=== PATIENT | female | born 1950 | race Caucasian/White ===

== ENCOUNTER → 2017-10-05 11:00 | Outpatient (CLI) | payer MEDICARE, SELFPAY ==
--- NOTE | 2017-10-05 11:05 | CA_ITS ---
PROCEDURE: 2-D M-mode and color Doppler study INDICATIONS FOR THE TEST: Chest pain COPD Heart Murmur Tobacco Smoking Palpitations Fatigue Syncope Edema HypertensionXDiabetes Mellitus Rheumatic Fever SOBXDOE ObesityXHyperlipidemiaX Family History HD Additional History PHTN PATIENT INFORMATION HEIGHT: 67 WEIGHT:235 GENDER: Female B/P:154/88 2-D/M-MODE INTERPRETATION: 2-D MEASUREMENTS OBSERVED VALUES IN CMS Right Ventricular Dimension (RVDd) 3.9 Interventricular Septum (Thickness)(IVsd) 1.0 Left Ventricular Internal Dimensions(LVIDd) 4.6 Left Ventricular Posterior Wall (Thickness)(LVPWd) 1.0 Aortic Root 3.4 Aortic Cusp Separation 2.0 Left Atrial Dimensions (LAD) 3.5 2D 1. Left atrium is qualitatively mildly enlarged, left ventricle is normal size, mild qualitative concentric left ventricular hypertrophy, visually estimated ejection fraction 55% with no obvious regional wall motion abnormality. 2. The right atrium and right ventricle is mildly enlarged with normal contractility. 3. The aortic valve is minimally thickened and fibrosed. 4. The mitral and tricuspid valve leaflets are minimally thickened. 5. The pulmonic valve is poorly visualized. 6. No significant pericardial effusion noted. DOPPLER INTERROGATION: Doppler interrogation of the aortic, mitral and tricuspid valvular presence of mild mitral and moderate tricuspid regurgitation, calculated right ventricular systolic pressure is 40 mmHg consistent with mild pulmonary hypertension, grade 1 diastolic dysfunction seen with tissue Doppler evidence of raised left atrial pressure. CONCLUSION: 1. Biatrial enlargement, normal left ventricular size, mild qualitative concentric left ventricular hypertrophy, visually estimated ejection fraction 55% with no obvious regional wall motion abnormality, grade 1 diastolic dysfunction seen with tissue Doppler evidence of raised left atrial pressure. 2. Mildly enlarged right ventricle with normal contractility. 3. Mild mitral and moderate tricuspid regurgitation, calculated right ventricular systolic pressure is 40 mmHg consistent with mild pulmonary hypertension. 4. No significant pericardial effusion noted.
== END ==
PROVIDERS: Family Provider Internal Medicine Adolescent Medicine; PCP Internal Medicine Adolescent Medicine; Visit Provider Nurse Practitioner Family
DX: R06.09 Other forms of dyspnea (principal)
CPT/HCPCS: 93306

== ENCOUNTER → 2017-10-10 14:13 | Outpatient (CLI) | payer MEDICARE, SELFPAY ==
--- NOTE | 2017-10-10 14:14 | CT_ITS ---
CT angio chest Ordering Physician: Claudy Dash MD Patient Age: 67 years: Female HISTORY: ITS.REASON: ESCOBEDO Dyspnea short of breath. Nonsmoker. TECHNIQUE: Helical CT scanning performed the chest following bolus menstruation of 70 cc Isovue-370 followed x 40 mL normal saline.. Thickened axial sections along with thick slab MIPpsagittal and coronal reconstructions performed on CT workstation. All CT scans at this facility used one or more dose reduction techniques , viz: automatic exposure control, ma/Kv adjustment per patient's size, (including targeted exam where dose matched to the indication; i.e. head); or iterative reconstruction technique COMPARISON : FINDINGS Pulmonary arteries.: No evidence of pulmonary embolism. Good visualization of pulmonary arteries. These appear satisfactory throughout . Aorta normal caliber. Only scant calcified plaque in arch Lung deng. I there are some mild chronic lung changes with some minimal scarring most evident towards the lung bases particularly left lung base. This as stated appears to be linear areas of scarring and possibly atelectasis. Mild hyperexpansion. With Question scant early emphysematous changes, but see no history of smoking. The airways appear satisfactory. No pleural lesions or findings Mediastinum. No hilar no mediastinal adenopathy. The heart appears normal upper normal size. No pericardial effusion. Little if any coronary artery calcification evident. Uppermost abdomen. Limited images here unremarkable IMPRESSION: 1. No evidence of pulmonary embolism. Good visualization of pulmonary arteries. 2. Aorta and mediastinum appear satisfactory. Heart normal size a with no significant findings on this CT survey. 2. Minimal linear scarring and atelectasis toward lung bases otherwise lungs clear with no acute findings.
== END ==
PROVIDERS: Family Provider Internal Medicine Adolescent Medicine; PCP Internal Medicine Adolescent Medicine; Visit Provider Internal Medicine Cardiovascular Disease
DX: R06.09 Other forms of dyspnea (principal); I27.20 Pulmonary hypertension, unspecified
CPT/HCPCS: 71275; Q9967

== ENCOUNTER → 2017-10-31 14:34 | Outpatient (CLI) | payer MEDICARE, SELFPAY ==
--- NOTE | 2017-10-31 14:43 | XR_ITS ---
XR foot wt bearing RT 3V HISTORY: ITS.REASON: pain ORDERING PHYSICIAN: Nadine Mccarthy DPM PATIENT AGE: 67 years COMPARISON: 11/13/2013 FINDINGS: No fracture or dislocation. No lytic or blastic change. There is normal mineralization.. There is mild spurring along the dorsal and proximal aspect of the navicular. There is a 6 mm calcaneal spur. Moderate spurring along the dorsal and distal aspect of the first metatarsal which is developed since the previous exam. 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
--- NOTE | 2017-10-31 14:43 | XR_ITS ---
XR foot wt bearing LT 3V HISTORY: ITS.REASON: pain ORDERING PHYSICIAN: Nadine Mccarthy DPM PATIENT AGE: 67 years COMPARISON: 09/06/2012 FINDINGS: No fracture or dislocation. Hypertrophic changes have developed along the dorsal proximal aspect of the navicular. There is a 9 mm calcaneal spur and there is mild hypertrophy along the proximal third metatarsal. There are osteoarthritic changes of first metatarsal-phalangeal joint with subarticular cystic change. There is normal alignment. IMPRESSION: Osteoarthritic change of the first metatarsophalangeal junction with subarticular cyst along with hypertrophic change of the navicular and the proximal shaft of the third metatarsal
== END ==
PROVIDERS: Visit Provider Podiatrist
DX: M79.673 Pain in unspecified foot (principal)
CPT/HCPCS: 73630

== ENCOUNTER → 2018-05-30 13:08 | Outpatient (CLI) | payer MEDICARE, SELFPAY ==
--- NOTE | 2018-05-30 13:12 | XR_ITS ---
XR chest 2V HISTORY: ITS.REASON: SOB,PERSISTENT COUGH ORDERING PHYSICIAN: Robyn Fischer PATIENT AGE: 68 years COMPARISON: 08/30/2017, 03/11/2014, 07/31/2014 FINDINGS: The cardiomediastinal silhouette and pulmonary vascularity are within normal limits. Chronic changes are present in the left lung base. There is are increased markings in the right lung base as well most of which is felt to be due to overlapping vessels and pericardial fat pad. Superimposed patchy area of atelectasis or infiltrate is also considered. The density in the right lung base is slightly greater when compared to the previous exams. No acute bony findings. IMPRESSION: Chronic changes with possible superimposed atelectasis or infiltrate in the right lung base
== END ==
PROVIDERS: PCP Internal Medicine Adolescent Medicine; Visit Provider Nurse Practitioner Family
DX: R05 Cough (principal); R06.02 Shortness of breath
CPT/HCPCS: 71046

== ENCOUNTER → 2018-07-10 08:01 | Outpatient (CLI) | payer MEDICARE, SELFPAY ==
--- NOTE | 2018-07-10 08:03 | CA_ITS ---
PROCEDURE: 2-D M-mode and color Doppler study INDICATIONS FOR THE TEST: Chest pain COPD Heart Murmur Tobacco Smoking Palpitations Fatigue Syncope Edema Hypertension+Diabetes Mellitus Rheumatic Fever SOB+ESCOBEDO Obesity+Hyperlipidemia Family History HD Additional History PATIENT INFORMATION HEIGHT: 68 WEIGHT:235 GENDER: Female B/P: 2-D/M-MODE INTERPRETATION: 2-D MEASUREMENTS OBSERVED VALUES IN CMS Right Ventricular Dimension (RVDd) 3.4 Interventricular Septum (Thickness)(IVsd) 1.5 Left Ventricular Internal Dimensions(LVIDd) 4.4 Left Ventricular Posterior Wall (Thickness)(LVPWd) 1.0 Aortic Root 3.4 Aortic Cusp Separation 2.2 Left Atrial Dimensions (LAD) 4.0 2D 1. Left atrium is mildly enlarged, left ventricle is normal size, mild concentric left ventricular hypertrophy, visually estimated ejection fraction 55% with no regional wall motion abnormality. 2. The right atrium and right ventricle are mildly enlarged with normal contractility. 3. The aortic valve is minimally thickened and fibrosed. 4. The mitral and tricuspid valve leaflets are minimally thickened. 5. The pulmonic valve is poorly clear. 6. No significant pericardial effusion noted. DOPPLER INTERROGATION: Doppler interrogation of the aortic, mitral and tricuspid valvular presence of mild mitral and tricuspid regurgitation, calculated right ventricular systolic pressure is 35 mmHg, grade 1 diastolic dysfunction seen with tissue Doppler evidence of raised left atrial pressure. CONCLUSION: 1. Biatrial enlargement, normal left ventricular size, mild concentric left ventricular hypertrophy, visually estimated ejection fraction 55% with no regional wall motion abnormality, grade 1 diastolic dysfunction seen with tissue Doppler evidence of raised left atrial pressure. 2. Mildly enlarged right ventricle with normal contractility. 3. Mild mitral and tricuspid regurgitation, calculated right ventricular systolic pressure 35 mmHg 4. No significant pericardial effusion noted.
== END ==
PROVIDERS: PCP Internal Medicine Adolescent Medicine; Visit Provider Nurse Practitioner Family
DX: R06.02 Shortness of breath (principal)
CPT/HCPCS: 93306

== ENCOUNTER → 2018-08-21 15:12 | Outpatient (POV) | payer MEDICARE, SELFPAY | PROVIDERS: Visit Provider Dermatology | DX: Z00.00 Encounter for general adult medical examination without abnormal findings (principal) ==

== ENCOUNTER → 2018-09-06 14:43 | Outpatient (CLI) | payer MEDICARE, SELFPAY ==
--- NOTE | 2018-09-06 15:30 | CT_ITS ---
CT lung screening EXAM: CT LUNG LOW DOSE WO CONTRAST HISTORY: 30 pack-year smoking history, asymptomatic for lung cancer ITS.REASON: CURRENT TOBACCO USE ORDERING PHYSICIAN: Robyn Fischer APRN PATIENT AGE: 68 years COMPARISON: None TECHNIQUE: The exam was performed on a GE Light Speed [address] scanner using 2.90 mGy CTDI. A low dose helical CT CHEST was performed on a multi-detector scanner. All CT scans at the facility use one or more dose reduction, viz: automated exposure control, ma/kV adjustment per patient size (including targeted exams where dose is matched to indication, i.e. head), or iterative reconstruction technique. The LDCT was performed in a facility that meets the criteria for the screening program. Data regarding this exam was submitted to ACR which is an approved registry. The order for this exam indicates that it came as a result of a lung cancer screening counseling shard decision-making visit that included all the elements required of such a visit including smoking cessation. The radiologist interpreting this exam meets the [facility] criteria for the LDCT lung cancer screening program. The exam is reported using the Lung-RADS classification scale and reported to the ACR registry. NOTE: This study was performed for the specific purposes of lung cancer screening and is not an alternative to diagnostic chest CT. RADIATION DOSE: CTDI vol(CT dose Index-volume) = 2.90mG DLP (Dose Length Product) = 97.95 mGcm FINDINGS: There is a 4 mm noncalcified nodule within the left upper lobe image #42. Mild fibrotic changes are present in the lingula and right middle lobe. IMPRESSION: 1. Lung RADS Category: 2, benign 2. Other findings: No other pertinent findings evident RECOMMENDATIONS: 12 month LDCT follow-up
== END ==
PROVIDERS: PCP Nurse Practitioner Family; Visit Provider Nurse Practitioner Family
DX: Z12.2 Encounter for screening for malignant neoplasm of respiratory organs (principal); Z87.891 Personal history of nicotine dependence; R06.02 Shortness of breath

== ENCOUNTER 2019-02-23 11:03 | Outpatient (CLI) | payer MEDICARE, SELFPAY ==
[2019-02-23 12:30] VITALS: BP 133/80; PULSE 77; RESP 18; TEMP 36.7; O2SAT 94; BMI 36.0
[2019-02-23 13:20] VITALS: BP 145/83; PULSE 85; RESP 18; TEMP 36.7; O2SAT 95
== END 2019-02-23 13:20 | disposition home or self-care (01) ==
PROVIDERS: PCP Internal Medicine Adolescent Medicine; Visit Provider Internal Medicine Infectious Disease
DX: K57.80 Diverticulitis of intestine, part unspecified, with perforation and abscess without bleeding (principal)
CPT/HCPCS: 96365; J1335

== ENCOUNTER 2019-02-24 10:08 | Outpatient (CLI) | payer MEDICARE, SELFPAY ==
[2019-02-24 10:22] VITALS: BP 143/89; PULSE 96; RESP 18; TEMP 36.8; O2SAT 94; BMI 36.0
[2019-02-24 11:20] VITALS: BP 136/64; PULSE 82; RESP 18; TEMP 36.9; O2SAT 93
== END 2019-02-24 11:20 | disposition home or self-care (01) ==
LOC: INF 10:09
PROVIDERS: PCP Internal Medicine Adolescent Medicine; Visit Provider Internal Medicine Infectious Disease
DX: K57.80 Diverticulitis of intestine, part unspecified, with perforation and abscess without bleeding (principal)
CPT/HCPCS: 96365; J1335

== ENCOUNTER 2019-02-25 09:40 | Outpatient (CLI) | payer MEDICARE, SELFPAY ==
[2019-02-25 09:47] VITALS: BMI 37.5
[2019-02-25 10:10] LABS: Anion Gap 13.6 mEq/L (5-15); Blood Urea Nitrogen 14 mg/dL (7-18); Calcium 9.1 mg/dL (8.5-10.1); Carbon Dioxide 26 mmol/L (21.0-32.0); Chloride 105 mmol/L (98-107); Creatinine Clearance Estimated 94 mL/min (50-200); Creatinine,Serum 0.77 mg/dL (0.55-1.02); Estimated Glomerular Filt Rate 75 ml/min (>60); GFR (African American) 90 ML/MIN (>60); Glucose 147 mg/dL (74-106); Potassium 3.6 mmoL/L (3.5-5.1); Sodium 141 mmol/L (136-145)
[2019-02-25 10:45] VITALS: BP 112/74; PULSE 68; RESP 20; TEMP 36.8; O2SAT 95
[2019-02-25 11:15] VITALS: BP 130/70; PULSE 68; RESP 20; TEMP 36.9; O2SAT 95
== END 2019-02-25 11:25 | disposition home or self-care (01) ==
LOC: INF 10:02
PROVIDERS: Visit Provider Internal Medicine Infectious Disease
DX: K57.20 Diverticulitis of large intestine with perforation and abscess without bleeding (principal); I27.0 Primary pulmonary hypertension
CPT/HCPCS: 80048; 96365; J1335

== ENCOUNTER 2019-02-27 09:50 | Outpatient (CLI) | payer MEDICARE, SELFPAY ==
[2019-02-27 10:05] VITALS: BP 109/74; PULSE 82; RESP 18; O2SAT 97
[2019-02-27 10:40] VITALS: BP 106/69; PULSE 72; RESP 18
== END 2019-02-27 11:10 | disposition home or self-care (01) ==
LOC: INF 09:53
PROVIDERS: PCP Internal Medicine Adolescent Medicine; Visit Provider Internal Medicine Infectious Disease
DX: K57.20 Diverticulitis of large intestine with perforation and abscess without bleeding (principal); I27.0 Primary pulmonary hypertension
CPT/HCPCS: 96365; J1335

== ENCOUNTER → 2019-05-01 15:15 | Outpatient (CLI) | payer MEDICARE, SELFPAY | PROVIDERS: PCP Internal Medicine Adolescent Medicine; Visit Provider Nurse Practitioner Family | DX: G47.33 Obstructive sleep apnea (adult) (pediatric) (principal) | CPT/HCPCS: 94762 ==

== ENCOUNTER → 2019-07-01 11:49 | Outpatient (CLI) | payer MEDICARE, SELFPAY ==
[2019-07-01 12:24] LABS: Basophils # 0.1 K/mm3 (0-0.2); Basophils % 0.5 % (0.1-2.0); Eosinophils # 0.2 K/mm3 (0.0-0.4); Eosinophils % 2.2 % (0.1-12.0); Hematocrit 42.6 % (37.0-47.0); Hemoglobin 13.8 g/dL (12.2-16.2); Lymphocytes # 2.9 K/mm3 (0.7-4.5); Lymphocytes % 31.4 % (10-50); Mean Corpuscular HGB Conc 32.4 g/dL (31.8-35.4); Mean Corpuscular Hemoglobin 28.3 pg (27.0-31.2); Mean Corpuscular Volume 87.4 fl (81-99); Mean Platelet Volume 8.1 fl (7.4-10.4); Monocytes # 0.3 K/mm3 (0.1-1.0); Monocytes % 3.5 % (1.7-9.3); Neutrophils # 5.7 K/mm3 (1.8-7.8); Neutrophils % 62.4 % (37.0-80.0); Platelet Count 248 K/mm3 (142-424); Red Blood Count 4.87 M/mm3 (4.20-5.40); Red Cell Distribution Width 14.2 % (11.5-17.5); White Blood Count 9.2 K/mm3 (4.8-10.8)
[2019-07-01 13:19] LABS: Chloride 103 mmol/L (98-107)
[2019-07-01 13:20] LABS: Potassium 4.5 mmoL/L (3.5-5.1); Sodium 141 mmol/L (136-145)
[2019-07-01 13:22] LABS: Alanine Aminotransferase 9 U/L (12-78); Aspartate Amino Transferase 24 U/L (14-36); Blood Urea Nitrogen 15 mg/dl (7-17); Estimated Glomerular Filt Rate 83 ml/min (>60); GFR (African American) 101 ML/MIN (>60)
[2019-07-01 13:23] LABS: Albumin Level 4.2 g/dl (3.5-5.0); Albumin/Globulin Ratio 1.4 (1.1-1.8); Alkaline Phosphatase 96 U/L (38-126); Anion Gap 12.5 mEq/L (5-15); Bilirubin,Total 0.3 mg/dl (0.2-1.3); Calcium 10.1 mg/dl (8.4-10.2); Carbon Dioxide 30 mmol/L (22.0-30.0); Globulin 2.9 g/dL (1.3-3.2); Glucose 99 mg/dl (74-100); Magnesium 2.1 mg/dl (1.6-2.3); Total Protein,Serum 7.1 g/dl (6.3-8.2)
[2019-07-01 13:55] LABS: Thyroid Stimulating Hormone 2.23 uIU/mL (0.465-4.68)
== END ==
PROVIDERS: Visit Provider Nurse Practitioner Family
DX: R00.2 Palpitations (principal); I10 Essential (primary) hypertension
CPT/HCPCS: 36415; 80053; 83735; 84443; 85025

== ENCOUNTER → 2019-07-04 09:25 | Outpatient (CLI) | payer MEDICARE, SELFPAY ==
--- NOTE | 2019-07-04 | CA_ITS ---
APPROVED REPORT Java Consultant: Leslye Mercado RVT Laterality: Bilateral Study Quality: Good Indications: Dizziness and Vertigo Risk Factors Hypertension: Hyperlipidemia Smoking Doppler Spectral Velocity Analysis ECA (R) 86.80/9.20 cm/s ECA (L) 73.20/16.10 cm/s dICA (R) 74.10/18.20 cm/s dICA (L) 67.10/29.10 cm/s Cosme (R) 53.40/15.30 cm/s Cosme (L) 67.10/26.80 cm/s pICA (R) 52.90/15.40 cm/s pICA (L) 55.30/20.00 cm/s dCCA (R) 49.80/13.70 cm/s dCCA (L) 66.00/21.30 cm/s pCCA (R) 66.10/14.30 cm/s pCCA (L) 74.80/17.60 cm/s Vert (R) 42.70/14.40 cm/s Vert (L) 32.30/8.10 cm/s ICA/CCA 1.49 ICA/CCA 1.02 Conclusion Study suggests less than 20% stenosis of the right internal cartoid artery. Study suggests less than 20% stenosis of the left internal cartoid artery. Antegrade flow seen bilateral vertebral arteries. Electronically signed by : True Morales MD 07/04/2019 16:50:05
--- NOTE | 2019-07-04 | CA_ITS ---
APPROVED REPORT EXAM: Comprehensive 2D, Doppler, and color-flow Echocardiogram Interface Designer: Lizeth Davison CRT Ht: 5 ft 7 in Wt: 222lbs BSA: 2.11 BP: 128/51 mmHg Indications: Palpitations, Hyperlipidemia, Hypertension/HDD, vertigo, JUJU, ex smoker 2D Dimensions LVOT 2.07 cm (M/F) 1.5-2.5 M-Mode Dimensions RVDd 3.42 cm (0.9-2.6) LVDd 4.62 cm (3.5-5.7) LVDs 2.87 cm (3.5-5.7) IVSd 1.51 cm (0.6-1.1) PWd 0.91 cm (0.6-1.1) EF (Teich) 68.10% FS 37.90% EDV (Teich) 98.30 mL ESV (Teich) 31.40 mL LV Diastology E/A Ratio 0.57 Mitral Valve MV A Velocity 78.00 (40-130 cm/s) Left Ventricle Left atrium is mildly enlarged, left ventricle is normal size, mild concentric left ventricular hypertrophy, visually estimated ejection fraction 55% with no regional wall motion abnormality, grade 1 diastolic dysfunction seen without tissue Doppler evidence of raise left atrial pressure. Right Ventricle Right atrium right ventricle mildly enlarged with normal contractility. Aortic Valve Aortic valve is minimally thickened and fibrosed, there is no aortic stenosis, there is trace aortic insufficiency. Mitral Valve Mitral valve is grossly normal, there is mild mitral regurgitation. Tricuspid Valve Tricuspid valve is grossly normal, there is mild tricuspid regurgitation, calculated right ventricular systolic pressure is 41 mmHg. Pulmonic Valve Pulmonic valve is poorly visualized. Great Vessels Aortic root is normal size. Pericardium No significant pericardial effusion noted. Conclusion 1. Biatrial alignment, normal left ventricular size, mild concentric left ventricular hypertrophy, visually estimated ejection fraction 55% with no regional wall motion abnormality, grade 1 diastolic dysfunction seen without tissue Doppler evidence of raise left atrial pressure. 2. Mildly enlarged right ventricle with normal contractility. 3. Trace aortic, mild mitral and tricuspid regurgitation, calculated right ventricular systolic pressure is 41 mmHg. 4. No significant pericardial effusion noted. Electronically signed by : Claudy Dash, 07/04/2019 12:42:00
== END ==
PROVIDERS: PCP Internal Medicine Adolescent Medicine; Visit Provider Nurse Practitioner Family
DX: R00.2 Palpitations (principal); I10 Essential (primary) hypertension; R42 Dizziness and giddiness
CPT/HCPCS: 93306; 93880

== ENCOUNTER → 2019-09-26 08:57 | Outpatient (CLI) | payer MEDICARE, SELFPAY ==
--- NOTE | 2019-09-26 09:13 | US_ITS ---
PROCEDURE: US ABDOMEN LIMITED CLINICAL INDICATION: ABD PAIN LOWER / INCISIONAL PAIN COMPARISON: No exams were available for comparison FINDINGS: Targeted exam is performed of the left lower quadrant in the patient's area of pain. No obvious sonographic abnormalities evident at this region. No large hernias or abnormal fluid collection. IMPRESSION: Negative limited ultrasound of left lower quadrant. Suggest CT for more thorough evaluation if symptoms persist Dictated by: True Morales MD 09/26/2019 15:14 Electronically signed by True Morales MD in [place] 09/26/2019 15:14
== END ==
PROVIDERS: PCP Nurse Practitioner Family; Visit Provider Nurse Practitioner Family
DX: R10.30 Lower abdominal pain, unspecified (principal); L76.82 Other postprocedural complications of skin and subcutaneous tissue
CPT/HCPCS: 76705

== ENCOUNTER 2020-09-17 20:07 | Emergency (ER) | payer MEDICARE, SELFPAY ==
[2020-09-17 20:10] VITALS: BP 165/71; PULSE 76; RESP 19; TEMP 37.1; O2SAT 96; BMI 43.4
--- NOTE | 2020-09-17 20:25 | XR_ITS ---
PROCEDURE INFORMATION: Exam: XR Chest Exam date and time: 09/17/2020 8:25 PM Age: 70 years old Clinical indication: Cough and shortness of breath and wheezing; Patient HX: Chest congestion and cough. Abdominal hernia repair this week. PT states she has had bronchitis but is scared shes going to mess up her stitches from coughing so much TECHNIQUE: Imaging protocol: XR of the chest. Views: 2 views. COMPARISON: CR Chest 08/26/2018 9:17 AM FINDINGS: Lungs: Subtle patchy opacities present in the right lower lung. Pleural spaces: There is blunting of the left CP angle. There is no pneumothorax. Heart/Mediastinum: The heart is borderline enlarged. Bones/joints: Mild multilevel degenerative disc disease. IMPRESSION: 1. Blunting of the left CP angle may be due to atelectasis/scarring or small pleural effusion. 2. Right lower lung opacity may be due to atelectasis, mass or pneumonia. Consider cross-sectional imaging for further evaluation.
--- NOTE | 2020-09-17 20:43 | HMH.EDUTC ---
[facility] [place]: Good Time of Disposition: 21:18 <Evelyn Arerola - Last Filed: 09/17/20 21:08> Condition on Discharge: Good <Angela Andrews - Last Filed: 09/18/20 00:35> Clinical Impression: Wheezing, Atelectasis of both lungs Disposition: Still a Patient Instructions: Albuterol, Albuterol Oral Inhalation Additional Instructions: ? Monitor temp. Tylenol every 4 hours as needed and / or ibuprofen every 6 hours as needed ( As long as your primary care physician has told you that it ok to take both. For fever/aches/pains ER if no less than 101 despite Tylenol or Motrin ? Humidifier/vaporizer or hot steamy shower ? Inhaler every 4-6 hours as needed like we discussed. If unsure how to use it, ask pharmacist to demonstrate how. Should help open airways and improve cough, wheezing, and shortness of breath ? Mucinex may help with your cough and congestion, if your Doctor says it is ok for you to take it. Be sure to drink lots of water. Insurance may not cover a prescriptions for mucinex. Might be cheaper to get 400mg tablets and take 2 tablet in the morning, mid-day and evening with lots of water. Follow up IMMEDIATELY for new or worsening of symptoms OR no noticeable improvement over the next 48-72 hours. 911 immediately for any life threatening symptoms such as chest pain or difficulty breathing Straight to the ER if any life threatening symptoms Referrals: Ese Barone APRN [Primary Care Provider] - As needed Medical Decision Making - Giovanni Inquiry Pt receiving controlled substance: No Giovanni was queried for this patient: No - Radiology Data #1 Image(s): Chest Image Reviewed: Yes I reviewed the patient's radiology image w/the ED provider <Evelyn Arreola - Last Filed: 09/17/20 21:08> - Lab Data Result diagrams: 09/17/20 22:32 09/17/20 22:32 - CT Data CT Scan: Chest Time Received: 00:[address] Reviewed: Yes: I have reviewed the patient's CT results, I have viewed the radiologist's interpretation Preliminary Findings: Normal/NAD <Angela Andrews - Last Filed: 09/18/20 00:35> Vital Signs: 09/17/20 20:10 09/17/20 21:38 Temperature 98.7 F 97.8 F Temperature Source Oral Oral Pulse Rate [Right Brachial] 76 81 Respiratory Rate 19 18 Blood Pressure [Right Arm] 165/71 H 142/80 H Blood Pressure Mean [Right Arm] 102 100 Blood Pressure Source [Right Arm] Automatic Cuff Automatic Cuff Blood Pressure Position [Right Arm] Sitting Sitting 02 Sat by Pulse Oximetry 96 96 Oxygen Delivery Method Room Air Room Air - Lab Data Lab Results 09/17/20 22:32: WBC 13.1 H, RBC 4.65, Hgb 13.9, Hct 41.2, MCV 88.6, MCH 29.8, MCHC 33.6, RDW 13.9, Plt Count 231, MPV 7.7, Neut % (Auto) 70.7, Lymph % (Auto) 20.8, [place] % (Auto) 5.7, Eos % (Auto) 2.5, Baso % (Auto) 0.4, Neut # (Auto) 9.3 H, Lymph # (Auto) 2.7, [place] # (Auto) 0.7, Eos # (Auto) 0.3, Baso # (Auto) 0.1 09/17/20 22:32: Sodium 139, Potassium 4.5, Chloride 102, Carbon Dioxide 30, Anion Gap 11.5, BUN 15, Creatinine 0.80, Estimated Creat Clear 93, Estimated GFR 71, Est GFR ( Amer) 86, Glucose 119 H, Calcium 9.2, Total Bilirubin 0.5, AST 26, ALT 9 L, Alkaline Phosphatase 121, Troponin I < 0.01, Total Protein 7.8, Albumin 4.5, Globulin 3.3 H, Albumin/Globulin Ratio 1.4 Orders (Tests/Meds): ED MEDICATIONS Generic Name Dose Route Start Last Admin Trade Name Freq PRN Reason Stop Dose Admin Albuterol Sulfate 2 puffs 09/17/20 21:09 09/17/20 21:38 Albuterol-Hfa 90mcg/Puff Inhaler 8gm IH 10/17/20 21:08 2 puffs Q4HP PRN Administration Shortness Of Breath Discontinued Medications Generic Name Dose Route Start Last Admin Trade Name Freq PRN Reason Stop Dose Admin Albuterol/Ipratropium 3 ml 09/17/20 20:52 09/17/20 20:56 Ipratropium/Albuterol 3 Ml Neb IH 09/17/20 20:53 3 ml ONCE ONE Administration Methylprednisolone Sodium Succinate 125 mg 09/17/20 21:09 09/17/20 21:05 Methylprednisolone Sod Succ 125mg Vial I
--- NOTE | 2020-09-17 20:52 | PC.NURSE ---
MEDICATION VERIFIED BY Noelle MARAVILLA APRN WITH PHARMACY
[2020-09-17 21:38] VITALS: BP 142/80; PULSE 81; RESP 18; TEMP 36.6; O2SAT 96; BMI 38.3
--- NOTE | 2020-09-17 21:48 | CT_ITS ---
PROCEDURE INFORMATION: Exam: CTA Chest With Contrast Exam date and time: 09/17/2020 9:48 PM Age: 70 years old Clinical indication: Patient HX: SOA, cough, R/O pneumonia. Abdominal hernia repair done this week; Additional info: Short of breath, recent surgery TECHNIQUE: Imaging protocol: Computed tomographic angiography of the chest with contrast. 3D rendering (Not supervised by radiologist): MIP and/or 3D reconstructed images were created by the technologist. Radiation optimization: All CT scans at this facility use at least one of these dose optimization techniques: automated exposure control; mA and/or kV adjustment per patient size (includes targeted exams where dose is matched to clinical indication); or iterative reconstruction. Contrast material: ISOVUE 370; Contrast volume: 70 ml; Contrast route: INTRAVENOUS (IV); COMPARISON: [facility] CT angio chest 10/10/2017 2:52 PM FINDINGS: Pulmonary arteries: No main, lobar or segmental pulmonary artery emboli. Evaluation of subsegmental pulmonary arteries is limited by technique. Aorta: Unremarkable. No aortic aneurysm. No aortic dissection. Lungs: Bilateral dependent atelectasis with scarring. Pleural spaces: Unremarkable. No pneumothorax. No pleural effusion. Heart: Unremarkable. No cardiomegaly. No pericardial effusion. Lymph nodes: Unremarkable. No enlarged lymph nodes. Gallbladder and bile ducts: The gallbladder has been removed. Spleen: Splenic calcified granulomas. Bones/joints: Mild multilevel degenerative changes of the spine. Soft tissues: Unremarkable. IMPRESSION: 1. No main, lobar or segmental pulmonary artery emboli. 2. Bilateral dependent atelectasis and/or scarring. 3. Examination is limited by poor technique.
--- NOTE | 2020-09-17 22:31 | HMH.ITSTN ---
CT is waiting on labs
[2020-09-17 22:54] LABS: Basophils # 0.1 K/mm3 (0-0.2); Basophils % 0.4 % (0.1-2.0); Eosinophils # 0.3 K/mm3 (0.0-0.4); Eosinophils % 2.5 % (0.1-12.0); Hematocrit 41.2 % (37.0-47.0); Hemoglobin 13.9 g/dL (12.2-16.2); Lymphocytes # 2.7 K/mm3 (0.7-4.5); Lymphocytes % 20.8 % (10-50); Mean Corpuscular HGB Conc 33.6 g/dL (31.8-35.4); Mean Corpuscular Hemoglobin 29.8 pg (27.0-31.2); Mean Corpuscular Volume 88.6 fl (81-99); Mean Platelet Volume 7.7 fl (7.4-10.4); Monocytes # 0.7 K/mm3 (0.1-1.0); Monocytes % 5.7 % (1.7-9.3); Neutrophils # 9.3 K/mm3 (1.8-7.8); Neutrophils % 70.7 % (37.0-80.0); Platelet Count 231 K/mm3 (142-424); Red Blood Count 4.65 M/mm3 (4.20-5.40); Red Cell Distribution Width 13.9 % (11.5-17.5); White Blood Count 13.1 K/mm3 (4.8-10.8)
[2020-09-17 22:57] LABS: Chloride 102 mmol/L (98-107); Potassium 4.5 mmoL/L (3.5-5.1); Sodium 139 mmol/L (136-145)
[2020-09-17 22:59] LABS: Blood Urea Nitrogen 15 mg/dl (7-17); Creatinine Clearance Estimated 93 mL/min (50-200); Estimated Glomerular Filt Rate 71 ml/min (>60); GFR (African American) 86 ML/MIN (>60)
[2020-09-17 23:00] LABS: Alanine Aminotransferase 9 U/L (12-78); Albumin Level 4.5 g/dl (3.5-5.0); Albumin/Globulin Ratio 1.4 (1.1-1.8); Alkaline Phosphatase 121 U/L (38-126); Anion Gap 11.5 mEq/L (5-15); Aspartate Amino Transferase 26 U/L (14-36); Bilirubin,Total 0.5 mg/dl (0.2-1.3); Calcium 9.2 mg/dl (8.4-10.2); Carbon Dioxide 30 mmol/L (22.0-30.0); Globulin 3.3 g/dL (1.3-3.2); Glucose 119 mg/dl (74-100); Total Protein,Serum 7.8 g/dl (6.3-8.2)
[2020-09-17 23:18] LABS: Troponin I < 0.01 ng/ml (0.00-0.034)
--- NOTE | 2020-09-17 23:58 | PC.NURSE ---
pt back from CT
[2020-09-18 00:56] VITALS: BP 165/80; PULSE 75; RESP 18; TEMP 36.8; O2SAT 98
== END 2020-09-18 01:01 | disposition still patient (30) ==
LOC: UTC 21:21 → ER 21:32
PROVIDERS: Emergency Provider Emergency Medicine; PCP Nurse Practitioner Family
DX: J98.11 Atelectasis (principal); I10 Essential (primary) hypertension; E78.5 Hyperlipidemia, unspecified; F41.8 Other specified anxiety disorders; Z79.899 Other long term (current) drug therapy
CPT/HCPCS: 71046; 71275; 80053; 84484; 85025; 99282

== ENCOUNTER → 2021-04-15 08:41 | Outpatient (CLI) | payer MEDICARE, SELFPAY ==
--- NOTE | 2021-04-15 08:53 | US_ITS ---
FINAL REPORT CLINICAL HISTORY: HERNIA-- eval for pt has had multiple abd surgeries and scarring around this area-- FINDINGS: US ABDOMINAL LIMITED Limited sonographic images were obtained of the abdomen at the level of the umbilicus. No abnormality noted. IMPRESSION: No abnormality noted at the area of interest. If concern persists consider CT. Reviewed, Interpreted and Dictated by Den Negrete MD Transcribed by Naman Mccann Authenticated by Den Negrete MD on 04/15/2021 11:54:31 AM [facility]
== END ==
PROVIDERS: PCP Nurse Practitioner Family; Visit Provider Nurse Practitioner Family
DX: K46.9 Unspecified abdominal hernia without obstruction or gangrene (principal)
CPT/HCPCS: 76705

== ENCOUNTER → 2021-08-04 10:55 | Outpatient (CLI) | payer MEDICARE, SELFPAY ==
--- NOTE | 2021-08-04 10:59 | MR_ITS ---
FINAL REPORT CLINICAL HISTORY: INSTABILITY OF LT KNEE JOINT, LT MEDIAL KNEE PAIN, PAIN AROUND PATELLA FINDINGS: Multiplanar MR imaging of the right knee was performed without contrast. There is a tear of the posterior horn of the medial meniscus. In addition, there is a tear of the anterior horn of the lateral meniscus. The anterior and posterior cruciate ligaments are intact. The medial collateral ligament and lateral ligamentous complex are intact. There are foci patellar tendonitis. There is no evidence of fracture. There are mild and moderate degenerative changes. 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 A moderate joint effusion is seen. The musculature is intact. There is a small popliteal cyst. IMPRESSION: Tear of the posterior horn of the medial meniscus. Tear of the anterior horn of the lateral meniscus. 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 Patellar tendinitis. Reviewed, Interpreted and Dictated by Richar Waters III, MD Transcribed by Skylar Lowe Authenticated by Richar Waters III, MD on 08/04/2021 12:54:33 PM [facility]
== END ==
PROVIDERS: PCP Nurse Practitioner Family; Visit Provider Nurse Practitioner Family
DX: M25.562 Pain in left knee (principal)
CPT/HCPCS: 73721

== ENCOUNTER → 2021-08-04 11:56 | Outpatient (CLI) | payer MEDICARE, SELFPAY ==
--- NOTE | 2021-08-04 12:03 | XR_ITS ---
FINAL REPORT CLINICAL HISTORY: PAIN IN LEFT ANKLE AND JOINTS OF LEFT FOOT FINDINGS: RIGHT ANKLE 3 views of the right ankle were obtained. There is no acute fracture or dislocation. There is mild degenerative change. There is a plantar calcaneal spur. There is a calcification in the region of the posterior plantar aponeurosis. No acute soft tissue abnormality. IMPRESSION: Degenerative changes as above. Reviewed, Interpreted and Dictated by Richar Waters III, MD Transcribed by Tricia Fritz Authenticated by Richar Waters III, MD on 08/04/2021 01:49:08 PM [facility]
--- NOTE | 2021-08-04 12:04 | XR_ITS ---
FINAL REPORT CLINICAL HISTORY: PAIN IN LEFT ANKLE AND JOINTS OF LEFT FOOT FINDINGS: LEFT ANKLE Three views demonstrate no acute fracture or dislocation. There is mild degenerative change. There is a plantar calcaneal spur. There is a calcification in the region of the posterior plantar aponeurosis. No acute soft tissue abnormality. IMPRESSION: Degenerative changes as above. Reviewed, Interpreted and Dictated by Richar Waters III, MD Transcribed by Tricia Fritz Authenticated by Richar Waters III, MD on 08/04/2021 01:49:10 PM [facility]
--- NOTE | 2021-08-04 12:06 | XR_ITS ---
FINAL REPORT CLINICAL HISTORY: RHEUMATOID FACTOR POSITIVE FINDINGS: RIGHT FOOT 3 views of the right foot were obtained. There is no acute fracture or dislocation. There are mild degenerative changes. There are subchondral cysts at the 2nd, 3rd, and 4th proximal metatarsals. There are plantar calcaneal spurs. Soft tissues are unremarkable. IMPRESSION: Degenerative changes as detailed above. Reviewed, Interpreted and Dictated by Richar Waters III, MD Transcribed by Tricia Fritz Authenticated by Richar Waters III, MD on 08/04/2021 01:49:07 PM [facility]
--- NOTE | 2021-08-04 12:06 | XR_ITS ---
FINAL REPORT CLINICAL HISTORY: RHEUMATOID FACTOR POSITIVE FINDINGS: LEFT FOOT Three views of the left foot demonstrate no acute fracture or dislocation. There are severe degenerative changes of the 1st metatarsophalangeal joint. There are mild degenerative changes elsewhere. There are subchondral cysts at the proximal 2nd, 3rd, and 4th proximal metatarsals. Soft tissues are unremarkable. IMPRESSION: Degenerative changes as detailed above. Reviewed, Interpreted and Dictated by Richar Waters III, MD Transcribed by Tricia Fritz Authenticated by Richar Waters III, MD on 08/04/2021 01:49:09 PM [facility]
--- NOTE | 2021-08-04 12:08 | XR_ITS ---
FINAL REPORT CLINICAL HISTORY: ARTHRALGIA OF MULTIPLE POSITIVE. RHEUMATOID POSITIVE FINDINGS: RIGHT HAND Three views demonstrate no acute fracture or dislocation. There are mild and moderate degenerative changes, greatest at the 3rd PIP and 5th DIP joints. There are small chronic calcifications at the 2nd PIP and 3rd DIP joints. There is erosion at the proximal radial aspect of the 2nd proximal phalanx. There are several subchondral cysts present. The soft tissues are unremarkable. IMPRESSION: Degenerative changes as above. Erosion at the proximal radial aspect of the 2nd proximal phalanx. Reviewed, Interpreted and Dictated by Richar Waters III, MD Transcribed by Tricia Fritz Authenticated by Richar Waters III, MD on 08/04/2021 01:49:08 PM [facility]
--- NOTE | 2021-08-04 12:08 | XR_ITS ---
FINAL REPORT CLINICAL HISTORY: RHEUMATOID FACTOR POSITIVE ARTHRALGIUA OF MULTIPLE SITES FINDINGS: LEFT HAND Three views demonstrate no acute fracture or dislocation. There is severe degenerative change at the 1st carpometacarpal joint. There are mild degenerative changes elsewhere in the hand and wrist. There are no bony erosions. The bones are well mineralized. The soft tissues are unremarkable. IMPRESSION: Degenerative changes as above. Reviewed, Interpreted and Dictated by Richar Waters III, MD Transcribed by Tricia Fritz Authenticated by Richar Waters III, MD on 08/04/2021 01:49:12 PM [facility]
== END ==
PROVIDERS: PCP Nurse Practitioner Family; Visit Provider Nurse Practitioner Family
DX: M25.572 Pain in left ankle and joints of left foot; M25.571 Pain in right ankle and joints of right foot; M79.672 Pain in left foot; M79.671 Pain in right foot; M79.642 Pain in left hand; M79.641 Pain in right hand; R76.8 Other specified abnormal immunological findings in serum; G89.29 Other chronic pain; M25.50 Pain in unspecified joint
CPT/HCPCS: 73130; 73610; 73630; 73721

== ENCOUNTER 2022-03-19 08:48 | Emergency (ER) | payer MEDICARE, SELFPAY ==
[2022-03-19] VITALS (8 sets, daily range): BP systolic 154–167; BP diastolic 63–86; PULSE 64–73; RESP 15–20; TEMP 36.8–36.9; O2SAT 95–96; BMI 39.1
--- NOTE | 2022-03-19 09:24 | EXP.UTC ---
Discharge Plan Disposition Patient Disposition: Home, Self-Care Condition: Good Prescriptions Prescriptions: No Action paroxetine HCl [Paxil] 20 mg tablet 20 mg PO DAILY meloxicam 15 mg tablet 15 mg PO DAILY 30 Days potassium chloride 10 mEq tablet extended release 10 meq PO DAILY Qty: 90 3RF diltiazem HCl 120 mg capsule,extended release 24hr 120 mg PO DAILY Qty: 30 0RF bumetanide 1 mg tablet 1 mg PO DIRECTED Label Comments: 1MG in the AM, 0.5MG in the PM Referrals Follow up/Referrals: Ese Barone APRN [Primary Care Provider] - See instructions Clinical Impressions Clinical Impression: Deep inguinal pain, left Instructions Patient Instructions: Acute Abdominal Pain Discharge ED Provider: Sylvester Pro [facility]PI <Jozef Sanches APRN - Last Filed: 03/20/22 21:06> General Chief complaint: PAIN Stated complaint: Left leg pain Mode of Arrival: Ambulatory Source of Information: Patient Limitations: No Limitations Time Seen by Provider: 03/19/22 09:24 Description of Symptoms (Recalled from Triage Doc. by RN): pt comes in with c/o pain in left groin area, goes down to mid inner thigh. symptoms began 2 days ago HEENT Symptoms (Recalled from RN notes): No Resp Symptoms (Recalled from RN notes): No Skin Symptoms (Recalled from RN notes): No MS Symptoms (Recalled from RN notes): Yes Functional Status (Recalled from RN notes): n/a Related Data Home Medications Medication Instructions Recorded Confirmed meloxicam 15 mg tablet 15 mg PO DAILY Arthritis 30 days 08/24/17 10/09/19 bumetanide 1 mg tablet 1 mg PO DIRECTED Fluid 09/09/19 10/09/19 paroxetine HCl 20 mg tablet (Paxil) 20 mg PO DAILY 09/09/19 10/09/19 Previous Rx's Medication Instructions Recorded potassium chloride 10 mEq 10 meq PO DAILY Supplement #90 tabs 12/26/19 tablet,extended release diltiazem HCl 120 mg 120 mg PO DAILY #30 caps 09/24/20 capsule,extended release 24 hr Allergies Allergy/AdvReac Type Severity Reaction Status Date / Time Penicillins [PENICILLINS] Allergy Unknown Verified 03/19/22 09:21 furosemide [From Lasix] Allergy Verified 03/19/22 09:21 losartan Allergy Verified 03/19/22 09:21 Worker's Comp Is this a Worker's Comp case?: No <Sylvester Pro MD - Last Filed: 03/19/22 12:09> History of Present Illness Provider Complaint: 72-year-old female, complicated past surgical history with prior perforation of the bowel secondary to diverticulitis with open repair, colostomy now reversed, with mesh. Reports pain in the left inguinal region which is similar to whenever she had the perforation, ongoing for about the last 2 days. No treatments prior to arrival. Denies fever, chills, nausea, vomiting, is still having bowel movements, no diarrhea, no hematochezia or hematemesis, no melena. States pain is mild to moderate, radiates into the left leg, no numbness or tingling, no back pain, no dysuria. She did have recent surgery on the eye but it was short outpatient surgery, denies any swelling of the legs, no history of DVT or PE. No overlying rash or erythema or other abnormality of the skin over the area. [facility] <Jozef Sanches APRN - Last Filed: 03/20/22 21:06> [facility] Disclaimer: The information contained in this section may have been updated after the patient was seen, as this information can be updated by other users. Medical History Dizziness HTN (hypertension) Pelvic abscess Perforation bowel Social History Smoking Status: Never smoker second hand exposure: No alcohol intake: never substance use type: denies use current occupational status: other Travel in the last 8 weeks: None household members: family housing: house <Sylvester Pro MD - Last Filed: 03/19/22 12:09> ROS Obtained: Yes Systems reviewed as appropriate & no additional complaints except as
--- NOTE | 2022-03-19 10:28 | CT_ITS ---
PROCEDURE INFORMATION: Exam: CT Abdomen And Pelvis With Contrast Exam date and time: 03/19/2022 11:14 AM Age: 72 years old Clinical indication: Abdominal pain; Acute; Prior surgery; Surgery date: 6+ months; Additional info: Left inguinal pain-- had previous bowel surgery and colostomy with reversal 3 years ago. TECHNIQUE: Imaging protocol: Computed tomography of the abdomen and pelvis with contrast. Radiation optimization: All CT scans at this facility use at least one of these dose optimization techniques: automated exposure control; mA and/or kV adjustment per patient size (includes targeted exams where dose is matched to clinical indication); or iterative reconstruction. Contrast material: ISOVUE; Contrast volume: 75 ml; Contrast route: IV; COMPARISON: CT ABDOMEN PELVIS W CON 02/15/2019 11:49 AM FINDINGS: Liver: Normal. No mass. Gallbladder and bile ducts: Post cholecystectomy. Pancreas: Normal. No ductal dilation. Spleen: Normal. No splenomegaly. Adrenal glands: Normal. No mass. Kidneys and ureters: Normal. No hydronephrosis. Stomach and bowel: See Soft tissues finding. Appendix: No evidence of appendicitis. Intraperitoneal space: Unremarkable. No free air. No significant fluid collection. Vasculature: Aortoiliac atherosclerosis. No aneurysm. Lymph nodes: Unremarkable. No enlarged lymph nodes. Urinary bladder: Unremarkable as visualized. Reproductive: Unremarkable as visualized. Bones/joints: Unremarkable. No acute fracture. Soft tissues: There is a wide-necked ventral wall hernia, containing non-dilated large bowel, with defect measuring 7 cm. No findings to suggest bowel obstruction. IMPRESSION: There is a wide-necked ventral wall hernia, containing non-dilated large bowel. No findings to suggest bowel obstruction.
[2022-03-19 11:00] LABS: Basophils # 0.1 K/mm3 (0-0.2); Basophils % 1.1 % (0.1-2.0); Eosinophils # 0.5 K/mm3 (0.0-0.4); Eosinophils % 5.5 % (0.1-12.0); Hemoglobin 13.5 g/dL (12.2-16.2); Lymphocytes # 2.8 K/mm3 (0.7-4.5); Lymphocytes % 32.3 % (10-50); Mean Corpuscular HGB Conc 32.1 g/dL (31.8-35.4); Mean Corpuscular Hemoglobin 29.1 pg (27.0-31.2); Mean Corpuscular Volume 90.7 fl (81-99); Mean Platelet Volume 8.2 fl (7.4-10.4); Monocytes # 0.5 K/mm3 (0.1-1.0); Monocytes % 5.2 % (1.7-9.3); Neutrophils # 4.8 K/mm3 (1.8-7.8); Platelet Count 273 K/mm3 (142-424); Red Blood Count 4.63 M/mm3 (4.20-5.40); Red Cell Distribution Width 13.9 % (11.5-17.5); White Blood Count 8.7 K/mm3 (4.8-10.8)
[2022-03-19 11:03] LABS: Chloride 104 mmol/L (98-107)
[2022-03-19 11:04] LABS: Potassium 4.5 mmoL/L (3.5-5.1); Sodium 141 mmol/L (136-145)
[2022-03-19 11:06] LABS: Alanine Aminotransferase 16 U/L (12-78); Albumin Level 4.3 g/dl (3.5-5.0); Albumin/Globulin Ratio 1.5 (1.1-1.8); Alkaline Phosphatase 138 U/L (38-126); Anion Gap 10.5 mEq/L (5-15); Aspartate Amino Transferase 27 U/L (14-36); Bilirubin,Total 0.3 mg/dl (0.2-1.3); Blood Urea Nitrogen 27 mg/dl (7-17); Calcium 9.6 mg/dl (8.4-10.2); Carbon Dioxide 31 mmol/L (22.0-30.0); Creatinine Clearance Estimated 92 mL/min (50-200); Estimated Glomerular Filt Rate 82 ml/min (>60); GFR (African American) 100 ML/MIN (>60); Globulin 2.9 g/dL (1.3-3.2); Glucose 111 mg/dl (74-100); Lipase 132 U/L (23-300); Total Protein,Serum 7.2 g/dl (6.3-8.2)
[2022-03-19 11:10] LABS: Lactic Acid 1.1 mmol/L (0.7-2.1)
--- NOTE | 2022-03-19 12:50 | PC.NURSE ---
Rounded on patient to get vitals. RN heading to room with discharge papers
== END 2022-03-19 12:47 | disposition home or self-care (01) ==
LOC: UTC 08:50 → ER 10:06
PROVIDERS: Emergency Provider Emergency Medicine; PCP Nurse Practitioner Family
DX: M79.605 Pain in left leg (principal); R42 Dizziness and giddiness; I10 Essential (primary) hypertension; M19.90 Unspecified osteoarthritis, unspecified site; K43.9 Ventral hernia without obstruction or gangrene; Z87.19 Personal history of other diseases of the digestive system; Z79.899 Other long term (current) drug therapy; Z88.0 Allergy status to penicillin; Z88.8 Allergy status to other drugs, medicaments and biological substances
CPT/HCPCS: 74177; 80053; 83605; 83690; 85025; 96361; 96374; 99285; Q9967

== ENCOUNTER → 2022-11-17 13:11 | Outpatient (CLI) | payer MEDICARE, SELFPAY ==
--- NOTE | 2022-11-17 13:15 | US_ITS ---
FINAL REPORT CLINICAL HISTORY: PALP AREA SUP TO RIGHT GLUTEAL FINDINGS: Limited sonographic images of the right gluteal region was obtained. There is an intensely shadowing focus measuring 9 mm in greatest dimension corresponding to the region of the palpable abnormality, may be related to underlying calcification but is poorly characterized by ultrasound. IMPRESSION: Intensely shadowing focus in the region of the palpable abnormality which may be calcified but can not be further characterized by ultrasound. Reviewed, Interpreted and Dictated by Den Negrete MD Transcribed by Alissa Brothers Authenticated and [facility]
== END ==
PROVIDERS: PCP Nurse Practitioner Family; Visit Provider Nurse Practitioner Family
DX: M79.89 Other specified soft tissue disorders (principal)
CPT/HCPCS: 76705

== ENCOUNTER 2022-12-09 11:27 | Emergency (ER) | payer MEDICARE, SELFPAY ==
--- NOTE | 2022-12-09 11:36 | XR_ITS ---
FINAL REPORT CLINICAL HISTORY: Lynn pop in right knee after standing up, PAIN COMPARISON: None FINDINGS: LEFT KNEE 3 views of the left knee were obtained. There is no acute fracture or dislocation. Mild to moderate narrowing of the medial and lateral compartment joint spaces. There is subchondral sclerosis. There is a small osteophyte along the undersurface of the patella. Soft tissues are unremarkable. IMPRESSION: No acute bony abnormality. Moderate changes of osteoarthritis. Reviewed, Interpreted and Dictated by Den Negrete MD Transcribed by Tricia Fritz Authenticated and [facility]
[2022-12-09 12:00] VITALS: BP 158/90; PULSE 73; RESP 16; TEMP 37; O2SAT 98; BMI 37.7
--- NOTE | 2022-12-09 12:26 | EXP.UTC ---
Discharge Plan Disposition Patient Disposition: Home, Self-Care Condition: Good Prescriptions Prescriptions: No Action paroxetine HCl [Paxil] 20 mg tablet 20 mg PO DAILY meloxicam 15 mg tablet 15 mg PO DAILY 30 Days potassium chloride 10 mEq tablet extended release 10 meq PO DAILY Qty: 90 3RF diltiazem HCl 120 mg capsule,extended release 24hr 120 mg PO DAILY Qty: 30 0RF bumetanide 1 mg tablet 1 mg PO DIRECTED Patient Comments: 1MG in the AM, 0.5MG in the PM Referrals Follow up/Referrals: Ese Barone APRN [Primary Care Provider] - See instructions Activity Restrictions/Add. Instructions Additional Instructions/Restrictions: Rest, ice, elevate Follow up with Debora for MRI if not improving Clinical Impressions Clinical Impression: Acute pain of right knee Instructions Patient Instructions: DI for Knee Pain Discharge ED Provider: Alisha Soto [facility] [place] HPI General Stated complaint: lateral right knee pain Mode of Arrival: Ambulatory Source of Information: Patient Limitations: No Limitations Time Seen by Provider: 12/09/22 12:26 Description of Symptoms (Recalled from Triage Doc. by RN): PATIENT C/O PAIN TO RIGHT LATERAL KNEE. SHE STATES SHE STOOD UP A WEEK AGO AND FELT A POP HEENT Symptoms (Recalled from RN notes): No Resp Symptoms (Recalled from RN notes): No Skin Symptoms (Recalled from RN notes): No MS Symptoms (Recalled from RN notes): Yes Functional Status (Recalled from RN notes): WNL History of Present Illness Provider Complaint: Right knee pain X 1 week. Stood up last week and felt a pop. Has had swelling on the outside of her knee. Knee feels like it is going to give out at times. Had medial and lateral meniscus tear on the left roughly a year ago, but that is better. Onset (ago): week(s) Location: right and lower extremity Radiation: non-radiation Relieving factors: none Exacerbating factors: none Associated symptoms: denies other symptoms Treatments prior to arrival: NSAID Related Data Home Medications Medication Instructions Recorded Confirmed meloxicam 15 mg tablet 15 mg PO DAILY Arthritis 30 days 08/24/17 10/09/19 bumetanide 1 mg tablet 1 mg PO DIRECTED Fluid 09/09/19 10/09/19 paroxetine HCl 20 mg tablet (Paxil) 20 mg PO DAILY 09/09/19 10/09/19 Previous Rx's Medication Instructions Recorded potassium chloride 10 mEq 10 meq PO DAILY Supplement #90 tabs 12/26/19 tablet,extended release diltiazem HCl 120 mg 120 mg PO DAILY #30 caps 09/24/20 capsule,extended release 24 hr Allergies Allergy/AdvReac Type Severity Reaction Status Date / Time Penicillins [PENICILLINS] Allergy Unknown Verified 03/19/22 09:21 furosemide [From Lasix] Allergy Verified 03/19/22 09:21 losartan Allergy Verified 03/19/22 09:21 Worker's Comp Is this a Worker's Comp case?: No [facility] Disclaimer: The information contained in this section may have been updated after the patient was seen, as this information can be updated by other users. Medical History Dizziness HTN (hypertension) Pelvic abscess Perforation bowel Social History Smoking Status: Never smoker second hand exposure: No alcohol intake: never substance use type: denies use current occupational status: other Travel in the last 8 weeks: None household members: family housing: house ROS Obtained: Yes All systems reviewed & no additional complaints except as documented Musculoskeletal Musculoskeletal: Reports abnormal gait, Reports arthralgias, Reports joint stiffness, Reports joint swelling and Reports limited range of motion Neurologic Neurologic: Reports abnormal gait Physical Exam General General appearance: alert and in no apparent distress Neck Neck exam: Present normal inspection, full ROM and trachea midline; Absent meningismus or lymphade
[2022-12-09 12:32] VITALS: BP 158/90; PULSE 73; RESP 16; TEMP 37; O2SAT 98
== END 2022-12-09 12:43 | disposition home or self-care (01) ==
PROVIDERS: Emergency Provider Physician Assistant; PCP Nurse Practitioner Family
DX: M25.561 Pain in right knee (principal); I10 Essential (primary) hypertension; X50.0XXA Overexertion from strenuous movement or load, initial encounter
CPT/HCPCS: 73562; 99203; 99212; G0463

== ENCOUNTER → 2023-02-14 13:30 | Outpatient (CLI) | payer MEDICARE, SELFPAY ==
[2023-02-14 13:39] LABS: Microscopic, Urine URINE MICROSCOPIC (MICROSCOPIC)
[2023-02-14 14:01] LABS: Appearance,Urine CLOUDY (Clear); Bilirubin,Urine Negative (Negative); Blood, Urine 2+ (Negative); Color,Urine ORANGE (Yellow); Glucose,Urine (UA) TRACE (Negative); Ketones,Urine Negative (Negative); Leukocyte Esterase,Urine 2+ (Negative); Nitrate,Urine POSITIVE (Negative); PH,Urine 7.5 (5.0-8.5); Protein,Urine 2+ (Negative); Specific Gravity, Urine 1.025 (1.005-1.030)
[2023-02-14 14:19] LABS: Bacteria,Urine 2+ /lpf; RBC,Urine 20-50 #/hpf (0-3); WBC,Urine 50-100 #/hpf (0-3)
== END ==
PROVIDERS: Nurse Practitioner Family; PCP Nurse Practitioner Family; Visit Provider Nurse Practitioner Family
DX: R30.0 Dysuria (principal); N39.0 Urinary tract infection, site not specified; B96.29 Other Escherichia coli [E. coli] as the cause of diseases classified elsewhere
CPT/HCPCS: 81001; 87086

== ENCOUNTER → 2023-03-17 08:35 | Outpatient (CLI) | payer MEDICARE, SELFPAY ==
[2023-03-17 17:40] LABS: Coronavirus 19, PCR Not Detected (NotDetected); Influenza A, PCR Not Detected (NotDetected); Influenza B, PCR Not Detected (NotDetected)
== END ==
LOC: LAB.DROPOF 03-18 08:36
PROVIDERS: PCP Nurse Practitioner Family; Visit Provider Family Medicine
DX: R06.2 Wheezing (principal); R51.9 Headache, unspecified; R09.89 Other specified symptoms and signs involving the circulatory and respiratory systems; R05.8 Other specified cough
CPT/HCPCS: 87636

== ENCOUNTER 2023-06-20 08:14 | Outpatient (CLI) | payer MEDICARE, SELFPAY ==
--- NOTE | 2023-06-20 08:48 | US_ITS ---
FINAL REPORT CLINICAL HISTORY: INCISIONAL HERNIA W/O OBSTRUCTION FINDINGS: Limited sonographic images of the lower abdomen were obtained. An area of presumed bowel and free fluid are noted at the area of interest worrisome for an abdomen wall hernia. IMPRESSION: Findings most worrisome for an abdomen wall hernia at the area of interest containing bowel and free fluid. This would likely be better evaluated with CT. Authenticated and [facility]
== END 2023-06-20 23:59 ==
LOC: RAD 08:15
PROVIDERS: PCP Nurse Practitioner Family; Visit Provider Nurse Practitioner Family
DX: K43.2 Incisional hernia without obstruction or gangrene (principal)
CPT/HCPCS: 76700

== ENCOUNTER 2023-07-26 09:57 | Outpatient (CLI) | payer MEDICARE, SELFPAY ==
--- NOTE | 2023-07-26 10:12 | XR_ITS ---
FINAL REPORT CLINICAL HISTORY: Shortness of breath COMPARISON: 09/17/2020 FINDINGS: Two views of the chest were obtained. The heart size and pulmonary vascularity are within normal limits. The mediastinum is normal. There are worsening right base opacities which likely represent atelectasis or pneumonia.. There is no pneumothorax. The bony thorax is intact. IMPRESSION: Worsening right base opacities, likely atelectasis or pneumonia Reviewed, Interpreted and Dictated by Richar Waters III, MD Transcribed by Tricia Fritz Authenticated and [facility]
[2023-07-26 10:20] LABS: Basophils # 0.1 K/mm3 (0-0.2); Basophils % 0.6 % (0.1-2.0); Eosinophils # 0.5 K/mm3 (0.0-0.4); Hematocrit 38.7 % (37.0-47.0); Hemoglobin 12.7 g/dL (12.2-16.2); Lymphocytes # 2.8 K/mm3 (0.7-4.5); Lymphocytes % 22.4 % (10-50); Mean Corpuscular HGB Conc 32.7 g/dL (31.8-35.4); Mean Corpuscular Hemoglobin 30.4 pg (27.0-31.2); Mean Corpuscular Volume 93.1 fl (81-99); Monocytes # 0.7 K/mm3 (0.1-1.0); Monocytes % 5.3 % (1.7-9.3); Neutrophils # 8.3 K/mm3 (1.8-7.8); Neutrophils % 67.6 % (37.0-80.0); Platelet Count 254 K/mm3 (142-424); Red Blood Count 4.16 M/mm3 (4.20-5.40); Red Cell Distribution Width 15.2 % (11.5-17.5); White Blood Count 12.3 K/mm3 (4.8-10.8)
[2023-07-26 10:36] LABS: D-Dimer 3.43 ug/mL (0.0-0.5)
[2023-07-26 10:54] LABS: Chloride 103 mmol/L (98-107)
[2023-07-26 10:55] LABS: Potassium 4.2 mmoL/L (3.5-5.1); Sodium 138 mmol/L (136-145)
[2023-07-26 10:57] LABS: Alanine Aminotransferase 20 U/L (12-78); Alkaline Phosphatase 104 U/L (38-126); Anion Gap 11.2 mEq/L (5-15); Aspartate Amino Transferase 30 U/L (14-36); Bilirubin,Total 0.9 mg/dl (0.2-1.3); Blood Urea Nitrogen 19 mg/dl (7-17); Carbon Dioxide 28 mmol/L (22.0-30.0); Estimated Glomerular Filt Rate 71 ml/min (>60); GFR (African American) 85 ML/MIN (>60)
[2023-07-26 10:58] LABS: Albumin Level 3.7 g/dl (3.5-5.0); Albumin/Globulin Ratio 1.5 (1.1-1.8); Calcium 9.7 mg/dl (8.4-10.2); Globulin 2.4 g/dL (1.3-3.2); Glucose 122 mg/dl (74-100); Magnesium 1.9 mg/dl (1.6-2.3); Total Protein,Serum 6.1 g/dl (6.3-8.2)
[2023-07-26 11:07] LABS: NT Pro Brain Natriuretic Pep. 71.7 pg/mL (0-125)
--- NOTE | 2023-07-26 15:01 | CT_ITS ---
FINAL REPORT CLINICAL HISTORY: ELEVATED D-DIMER,DYSPNEA,S/P SURGERY FINDINGS: Thin section axial CT images of the chest were obtained with contrast. 3D reformatted images were also obtained. This study was performed with techniques to keep radiation doses as low as reasonably achievable (ALARA). Individualized dose reduction techniques using automated exposure control or adjustment of mA and/or kV according to the patient's size were employed. There are bilateral pulmonary emboli involving the bilateral upper and lower lobe pulmonary arterial branches, somewhat larger on the right. There is enlargement of the right ventricle with flattening of the interventricular septum consistent with right heart strain. There is no evidence of mediastinal or hilar mass or adenopathy. There is no evidence of pulmonary mass or nodule. No localized inflammatory process is seen within the lungs. Limited images of the upper abdomen demonstrate cholecystectomy. There is a small cyst in the spleen. IMPRESSION: Bilateral pulmonary emboli with right heart strain. Ordering physician was notified of findings on 07/26/2023 at 5:16 p.m. Reviewed, Interpreted and Dictated by Richar Waters III, MD Transcribed by Alissa Brothers Authenticated and [facility]
[2023-07-26] MEDS: IOPAMIDOL-370 (76%);100ML BOTTLE 70 ML IV (15:24)
[2023-07-26] MEDS: 0.9 % SODIUM CHLORIDE 50 ML VIAL IV (15:24)
[2023-07-26] MEDS: SODIUM CHLORIDE 0.9% 10ML SYR (RAD ONLY) 10 ML IV (15:24)
== END 2023-07-26 23:59 | disposition home or self-care (01) ==
PROVIDERS: PCP Nurse Practitioner Family; Visit Provider Nurse Practitioner Family
DX: R06.02 Shortness of breath (principal)
CPT/HCPCS: 36415; 71046; 71275; 80053; 83735; 83880; 85025; 85378; Q9967

== ENCOUNTER 2023-07-26 19:21 | Observation (INO) | payer MEDICARE, SELFPAY ==
[2023-07-26] VITALS (9 sets, daily range): BP systolic 104–168; BP diastolic 79–86; PULSE 70–79; RESP 15–23; TEMP 36.9–37.3; O2SAT 91–95; BMI 39.1; BMI 40.3
--- NOTE | 2023-07-26 19:50 | ECG_ITS ---
APPROVED REPORT Exam: Resting ECG HR:81 bpm ECG Measurements Heart Rate 81 AXES VT 145 P 60 QRSd 90 QRS -3 QT 368 T 66 QTc 405 Conclusion SINUS RHYTHM Electronically signed by : MEHDI RASMUSSEN, 07/26/2023 23:17:17
[2023-07-26 19:58] LABS: Basophils # 0.1 K/mm3 (0-0.2); Basophils % 0.4 % (0.1-2.0); Eosinophils # 0.5 K/mm3 (0.0-0.4); Eosinophils % 3.8 % (0.1-12.0); Hematocrit 37.2 % (37.0-47.0); Hemoglobin 12.1 g/dL (12.2-16.2); Lymphocytes # 2.7 K/mm3 (0.7-4.5); Mean Corpuscular HGB Conc 32.4 g/dL (31.8-35.4); Mean Corpuscular Hemoglobin 30.6 pg (27.0-31.2); Mean Corpuscular Volume 94.4 fl (81-99); Mean Platelet Volume 8.3 fl (7.4-10.4); Monocytes # 0.6 K/mm3 (0.1-1.0); Monocytes % 4.6 % (1.7-9.3); Neutrophils # 8.4 K/mm3 (1.8-7.8); Neutrophils % 69.2 % (37.0-80.0); Platelet Count 267 K/mm3 (142-424); Red Blood Count 3.94 M/mm3 (4.20-5.40); White Blood Count 12.1 K/mm3 (4.8-10.8)
[2023-07-26 20:02] LABS: Chloride 101 mmol/L (98-107); Potassium 3.9 mmoL/L (3.5-5.1); Sodium 136 mmol/L (136-145)
[2023-07-26 20:05] LABS: Alanine Aminotransferase 28 U/L (12-78); Albumin Level 3.7 g/dl (3.5-5.0); Albumin/Globulin Ratio 1.3 (1.1-1.8); Alkaline Phosphatase 107 U/L (38-126); Anion Gap 12.9 mEq/L (5-15); Aspartate Amino Transferase 41 U/L (14-36); Bilirubin,Total 0.8 mg/dl (0.2-1.3); Blood Urea Nitrogen 23 mg/dl (7-17); Carbon Dioxide 26 mmol/L (22.0-30.0); Creatinine Clearance Estimated 91 mL/min (50-200); Estimated Glomerular Filt Rate 71 ml/min (>60); GFR (African American) 85 ML/MIN (>60); Globulin 2.8 g/dL (1.3-3.2); Total Protein,Serum 6.5 g/dl (6.3-8.2)
[2023-07-26 20:06] LABS: Activated Partial Thrombo Time 25.1 seconds (22.8-30.6); Calcium 9.1 mg/dl (8.4-10.2); Glucose 186 mg/dl (74-100); INR 0.99 (0.9-1.1); Prothrombin Time 10.7 seconds (10.1-12.5)
--- NOTE | 2023-07-26 20:12 | PC.NURSE ---
call to [facility] re transfer
[2023-07-26 20:13] LABS: PTT Heparin (inpatient only) 25.1 Seconds (23.6-34.0)
--- NOTE | 2023-07-26 20:14 | PC.NURSE ---
patient put on wait list
[2023-07-26 20:17] LABS: Troponin I 0.02 ng/ml (0.00-0.034)
--- NOTE | 2023-07-26 20:20 | PC.NURSE ---
Addendum entered by ENZO Mercado 07/26/23 20:25: face sheet faxed to [facility] Original Note: face sheet faxed
[2023-07-26] MEDS: HEPARIN SODIUM,PORCINE/D5W 500 ML 40 UNIT IV (20:21)
[2023-07-26] MEDS: HEPARIN SODIUM 5,000 UNIT/ML VIAL 9000 UNIT IV (20:21)
--- NOTE | 2023-07-26 20:34 | PC.NURSE ---
Calll to MD re transfer, ED MD on phone
--- NOTE | 2023-07-26 20:46 | P.HP_ITS ---
History of Present Illness *Admission Date: 07/26/23 *Reason for visit:: SOB *History of present illness: This is a 73-year-old obese female with past medical history hypertension, hyperlipidemia, perforation of the bowel, recently reversed ostomy, that was recently discharged from [facility] after left total knee replacement 2 weeks ago. Patient doing okay until found a bluish colored around her lips when showering. Patient called her primary care doctor who ordered an x-ray. Radi ology recommended CT of the chest for evaluation of PE. Patient arrived to ED for evaluation. Initially was mildly hypertensive 150/80, pulse of 79, 95% on room air, afebrile, breathing 15/min. No increased work of breathing. Lungs are clear to auscultation anterior and posterior bilaterally. No lower extremity edema outside of wound with normal of her left lower extremity. Left lower extremity postsurgical site clean, dry, intact with overlying dressings. Resolving bruising. Of note chart reviewed, patient has been taking tranexamic acid since discharge. Admitted for further evaluation and treatment. [facility] Disclaimer: The information contained in this section may have been updated after the patient was seen, as this information can be updated by other users. Medical History (Updated 07/26/23 @ 23:33 by Salvador Oates APRN) HTN (hypertension) Pelvic abscess Perforation bowel Dizziness Surgical History (Updated 07/27/23 @ 06:01 by Salvador Oates APRN) No significant past surgical history Family History Other No significant family history Social History Smoking Status: Never smoker second hand exposure: No alcohol intake: never substance use type: denies use current occupational status: other Travel in the last 8 weeks: None household members: family housing: house Review of Systems Review of Systems Review of systems:: pertinent systems reviewed and negative unless documented below Meds Home Medications and Allergies Home Medications Medication Instructions Recorded Confirmed Type bumetanide 1 mg tablet 1 mg PO DIRECTED Fluid 09/09/19 03/17/23 History paroxetine HCl 20 mg tablet (Paxil) 20 mg PO DAILY 09/09/19 07/27/23 History metformin 500 mg tablet 500 mg PO DAILY 07/26/23 07/26/23 History pregabalin 75 mg capsule 75 mg PO HS 07/26/23 07/26/23 History Lactobacillus acidophilus 0.5 mg 0.5 mg PO BID 07/27/23 07/27/23 History (100 million cell) tablet diltiazem HCl 180 mg 180 mg PO DAILY 07/27/23 07/27/23 History capsule,extended release 24 hr hydrocodone 5 mg-acetaminophen 325 1 tab PO Q6HP PRN Severe Pain 07/27/23 Rx mg tablet (7-10) 3 days #12 tabs potassium chloride 10 mEq 10 meq PO DAILY 07/27/23 07/27/23 History tablet,extended release rivaroxaban 15 mg tablet 15 mg PO BID 21 days #41 tabs 07/27/23 Rx rivaroxaban 20 mg tablet (Xarelto) 20 mg PO HS 30 days #30 tabs 07/27/23 Rx New Prescriptions to Start Prescriptions: hydrocodone-acetaminophen Jozef Moss rivaroxaban Jozef Moss rivaroxaban [Xarelto] Jozef Moss Allergies Allergy/AdvReac Type Severity Reaction Status Date / Time Penicillins [PENICILLINS] Allergy Unknown Verified 03/17/23 08:25 furosemide [From Lasix] Allergy Verified 03/17/23 08:25 losartan Allergy Verified 03/17/23 08:25 Sulfa (Sulfonamide Allergy Verified 07/26/23 23:50 Antibiotics) Exam Data for Last 24 hours Vital signs and Labs for Last 24 Hours: Temp Pulse Resp BP Pulse Ox O2 Del Method 99.1 F 79 15 151/83 H 95 Room Air 07/26/23 19:22 07/26/23 19:22 07/26/23 19:22 07/26/23 19:22 07/26/23 19:22 07/26/23 19:22 Laboratory Results - last 24 hr 07/26/23 19:40: WBC 12.1 H, RBC 3.94 L, Hgb 12.1 L, Hct 37.2, MCV 94.4, MCH 30.6, MCHC 32.4, RDW 15.0, Plt Count 267, MPV 8.3, Neut % (Auto) 69.2, Lymph % (Auto) 22.0, Milam % (Auto) 4.6, Eos % (Auto) 3.8, Baso % (Auto) 0.4, Neut # (Auto) 8.4 H, Lymph # (Auto) 2.7, Milam # (Auto) 0.6, Eos # (Auto) 0.5 H, Baso # (Auto) 0.1, PT 10.7, INR 0.99, APTT 25.1 07/26/23 19:40: APTT 25.1, Sodium 136, Potassium 3.9, Chloride 101, Carbon Dioxide 26, Anion Gap 12.9, BUN 23 H, Creatinine 0.80, Estimated Creat Clear 91, Estimated GFR 71, Est GFR ( Amer) 85, Glucose 186 H D, Calcium 9.1, Total Bilirubin 0.8, AST 41 H D, ALT 28 D, Alkaline Phosphatase 107, Troponin I 0.02, NT-Pro-B Natriuret Pep 44.0, Total Protein 6.5, Albumin 3.7, Globulin 2.8, Albumin/Globulin Ratio 1.3 I & O for Last 24 hours: Intake & Output 07/23/23 07/24/23 07/25/23 07/26/23 23:59 23:59 23:59 23:59 Weight 113.398 kg Constitutional Constitutional: no acute distress, morbidly obese and cooperative *Routine HEENT Exam Head: Present normocephalic Eye: Present EOMI and PERRL ENT: Present mucous membranes moist *Routine Neck Exam Neck: Present supple; Absent lymphadenopathy *Routine Respiratory Exam Respiratory: Present CTA bilaterally, normal respiratory effort and symmetric chest movement; Absent rhonchi or crackles *Routine Cardiovascular Exam Cardiovascular: Present RRR, Normal S1 and Normal S2 *Routine Abdominal Exam Abdominal: Present soft, normoactive bowel sounds and surgical scars; Absent tenderness *Routine Rectal Exam Rectal:: deferred *Routine Genitalia Exam Genitalia:: deferred *Routine Extremities Exam Extremities: Present edema and full ROM; Absent cyanosis or clubbing Comments: left knee total arthroplasty *Routine Skin Exam Skin: Present warm and wounds; Absent rash *Routine Neurological Exam Neurological: Present alert, oriented X3, normal reflexes and moving all extremities Routine Psychiatric Exam Psychiatric: Present normal thought process Assessment and Plan *Assessment and plan (1) Cor pulmonale, acute: Status: Acute Category: Medical Code(s): I26.09 - Other pulmonary embolism with acute cor pulmonale (2) Bilateral pulmonary embolism: Status: Acute Category: Medical Code(s): I26.99 - Other pulmonary embolism without acute cor pulmonale (3) History of arthroplasty of left knee: Status: Acute Category: Surgical Code(s): Z96.652 - Presence of left artificial knee joint (4) Perforation bowel: Status: Acute Category: Medical Code(s): K63.1 - Perforation of intestine (nontraumatic) (5) HTN (hypertension): Status: Chronic Qualifiers: Hypertension type: essential hypertension Qualified Code(s): I10 - Essential (primary) hypertension Category: Medical Code(s): I10 - Essential (primary) hypertension (6) Anxiety with depression: Status: Acute Category: Medical Code(s): F41.8 - Other specified anxiety disorders (7) Obesity: Status: Acute Qualifiers: Body mass index: BMI 40.0-44.9 Obesity classification: adult class 3 (BMI >= 40) Obesity type: unspecified obesity type Serious obesity comorbidity presence: with serious comorbidity Qualified Code(s): E66.01 - Morbid (severe) obesity due to excess calories; Z68.41 - Body mass index [BMI] 40.0-44.9, adult Category: Medical Code(s): E66.9 - Obesity, unspecified Plan 73-year-old obese female with past medical history hypertension, hyperlipidemia, perforation of the bowel, recently reversed ostomy, that was recently discharged from [facility] after left total knee replacement 2 weeks ago. Had an episode of bluish coloration around lips. PCP ordered Xray. patient was called to ED for emergency CT concerning of PE. Imaging obtained. concern of bilateral PE with questionable right heart strain. Neurologically patient remains hemodynamically stable, on room air, there is no respiratory distress, lungs auscultation's are clear. because the concern of cor pulmonale. imaging was power shipped to for consideration. Consulted for evaluation. Findings extensively discussed with ED. They request admission. Due to patient been hemodinamically stable, on air, we agreed for admission and monitoring here. Patient was placed on heparin continuous infusion. 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 Patient currently hemodinamically stable on RA. nursing to adjust heparin for target goal Pulmo and cardiology consult. monitor for signs of bleeding, SOB, or shock Oxygen PRN. ronnie o2 sat bedside echo done at ED. showed close to normal cardiac function patient has Hx of pulmonary hypertension Echo formally ordered monitor PTT per protocols repeat daily labs. presented with mildly leukocytosis. presumed reactive daily CBC -Recent Hx of total left knee arthroplasty: knee brace in place resume pain meds on lirica and meloxican watch renal function - Recent hx of reversed ostomy after Hx of perforated bowel: monitor abdominal surgery for bleeding -HTN: resume cardizem monitor VS per unit -Anxiety and depression on paroxetine obesity woth comorbidities will complicated care. actively on loosing weight track PCP to f/u abnormal BMI SCD for DVT ppx. on Hep. Protonix for GI bleed protection Full code Rounded on patient after nurse practitioner. Personally examined and interviewed patient. Agree with exam findings and care plan as documented.
--- NOTE | 2023-07-26 20:51 | ED_ITS ---
Discharge Plan Disposition Patient Disposition: Admitted Clinical Impressions Clinical Impression: Bilateral pulmonary embolism, Cor pulmonale, acute Discharge ED Provider: Ambrocio Cary HPI General Chief Complaint: Shortness of Breath/Dyspnea Stated Complaint: sent by Huyen Barone- blood clots in lungs Time Seen by Provider: 07/26/23 19:26 Mode of Arrival: Ambulatory Source of Information: Patient Limitations: No Limitations Description of Symptoms (Recalled from ER Triage Doc. by RN): patient ambulatory to ED. She states that she was seen by her PCP today for increased SOA, and cyanosis around mouth that occured yesterday. She states that at PT this week she felt a tightness in her chest but the pain subsided after rest. PCP ordered CTA which concluded bilateral PE . History of Present Illness HPI narrative: Please note that above description of symptoms, in this electronic medical record under categorization of recalled from ER triage doctor by RN are reflective of an initial nursing assessment, however, is not reflective of my full history and physical exam that was personally taken and clarified. Consequentially, this preceding description of symptoms, which may include the patient's categorized chief complaint in the EMR, do not reflect my personal clinical impression, and the ultimate description of history of present illness and patient stated complaints should be deferred to this section of the note. Unless stated otherwise or congruent with this section of the note, additional signs, symptoms, or incongruence should be interpreted as inaccurate with my clinical impression. Related Data Home Medications Medication Instructions Recorded Confirmed meloxicam 15 mg tablet 15 mg PO DAILY Arthritis 30 days 08/24/17 07/26/23 bumetanide 1 mg tablet 1 mg PO DIRECTED Fluid 09/09/19 07/26/23 paroxetine HCl 20 mg tablet (Paxil) 20 mg PO DAILY 09/09/19 03/17/23 diltiazem HCl 120 mg 180 mg PO DAILY 07/26/23 07/26/23 capsule,extended release 24 hr metformin 500 mg tablet 500 mg PO DAILY 07/26/23 07/26/23 pregabalin 75 mg capsule 75 mg PO HS 07/26/23 07/26/23 Previous Rx's Medication Instructions Recorded potassium chloride 10 mEq 10 meq PO DAILY Supplement #90 tabs 12/26/19 tablet,extended release Allergies Allergy/AdvReac Type Severity Reaction Status Date / Time Penicillins [PENICILLINS] Allergy Unknown Verified 03/17/23 08:25 furosemide [From Lasix] Allergy Verified 03/17/23 08:25 losartan Allergy Verified 03/17/23 08:25 [facility] Disclaimer: The information contained in this section may have been updated after the patient was seen, as this information can be updated by other users. Medical History Dizziness HTN (hypertension) Pelvic abscess Perforation bowel Surgical History No significant past surgical history Family History Other No significant family history Social History Smoking Status: Never smoker second hand exposure: No alcohol intake: never substance use type: denies use current occupational status: other Travel in the last 8 weeks: None household members: family housing: house ROS Obtained: Yes All systems reviewed & no additional complaints except as documented Physical Exam General General appearance: alert Neck Neck exam: Present trachea midline Chest Chest inspection: Present normal inspection and symmetric chest wall rise Respiratory Respiratory exam: Present normal lung sounds bilaterally; Absent respiratory distress, wheezes, stridor, accessory muscle use or prolonged expiratory phase Cardiovascular Cardiovascular exam: Present regular rate and normal rhythm Extremities Exam Extremities exam: Absent edema Neurological Exam Neurological exam: Present alert, oriented X3 and CN II-XII intact Skin Skin exam: Present warm and dry; Absent cyanosis, diaphoresis or pallor HEART Score HEART Score HEART Score assessment performed?: Yes History (anamnesis): Moderately suspicious ECG: Normal Age: >65 years Risk factors: 1-2 risk factors Troponin: </= normal limit HEART Score: 4 Procedures Limited Ultrasound Indication:: Limited cardiac ultrasound Indication: Shortness of breath, PND Identified cardiac views: -Cardiac parasternal long axis -Cardiac parasternal short axis Findings: -Cardiac activity present -Gross wall motion normal -Pericardial effusion absent -Right heart strain absent Impression: -Normal cardiac ultrasound Images were saved to permanent archive The study was technically adequate CPT: 31368 This study was performed by me, and I personally interpreted all images/videos. Based on my clinical judgement, these images were adequate and did not necessitate further imaging. Critical Care Critical Care Time Critical Care Time: Yes (CP) Attestation: On 07/26/23, the high probability of a clinically significant, sudden or life threatening deterioration of the following system(s) required my full and direct attention, intervention and personal management. The time I documented below is in addition to time spent performing reported procedures but includes the following listed in this critical care notation. Total Time Total Critical Care Time: 45 Medical Decision Making Medical Records Medical records reviewed: Yes I reviewed the patient's medical records. Giovanni Inquiry Pt receiving controlled substance: No Giovanni was queried for this patient: No Vital Signs Vital Signs: 07/26/23 19:22 07/26/23 20:30 07/26/23 21:31 Temperature 99.1 F Temperature Source Oral Pulse Rate 78 76 Pulse Rate [Left] 79 Respiratory Rate 15 18 16 Blood Pressure 148/79 H 168/84 H Blood Pressure [Right Arm] 151/83 H Blood Pressure Mean 102 115 Blood Pressure Mean [Right Arm] 105 Blood Pressure Source [Right Arm] Automatic Cuff Blood Pressure Position [Right Arm] Sitting 02 Sat by Pulse Oximetry 95 94 L 94 L Oxygen Delivery Method Room Air 07/26/23 22:02 Temperature Temperature Source Pulse Rate 71 Pulse Rate [Left] Respiratory Rate 16 Blood Pressure 104/86 L Blood Pressure [Right Arm] Blood Pressure Mean 92 Blood Pressure Mean [Right Arm] Blood Pressure Source [Right Arm] Blood Pressure Position [Right Arm] 02 Sat by Pulse Oximetry 94 L Oxygen Delivery Method Lab Data Labs: Lab Results 07/26/23 19:40: WBC 12.1 H, RBC 3.94 L, Hgb 12.1 L, Hct 37.2, MCV 94.4, MCH 30.6, MCHC 32.4, RDW 15.0, Plt Count 267, MPV 8.3, Neut % (Auto) 69.2, Lymph % (Auto) 22.0, Harding % (Auto) 4.6, Eos % (Auto) 3.8, Baso % (Auto) 0.4, Neut # (Auto) 8.4 H, Lymph # (Auto) 2.7, Harding # (Auto) 0.6, Eos # (Auto) 0.5 H, Baso # (Auto) 0.1, PT 10.7, INR 0.99, APTT 25.1 07/26/23 19:40: APTT 25.1, Sodium 136, Potassium 3.9, Chloride 101, Carbon Dioxide 26, Anion Gap 12.9, BUN 23 H, Creatinine 0.80, Estimated Creat Clear 91, Estimated GFR 71, Est GFR ( Amer) 85, Glucose 186 H D, Calcium 9.1, Total Bilirubin 0.8, AST 41 H D, ALT 28 D, Alkaline Phosphatase 107, Troponin I 0.02, NT-Pro-B Natriuret Pep 44.0, Total Protein 6.5, Albumin 3.7, Globulin 2.8, Albumin/Globulin Ratio 1.3 07/26/23 19:40 07/26/23 19:40 Response Orders (Tests/Meds): ED MEDICATIONS Generic Name Dose Route Start Last Admin Trade Name Freq PRN Reason Stop Dose Admin Acetaminophen 650 mg 07/26/23 20:42 Acetaminophen 325mg Tab PO 08/25/23 20:41 Q4HP PRN Fever or Mild Pain (1-3) Heparin Sodium/Dextrose 500 mls @ 40 mls/hr 07/26/23 20:15 07/26/23 20:21 Heparin 25,000 Units In D5w 500ml Premix IV 08/25/23 20:14 40 mls/hr .[id number] SCOOBY Administration 2,000 UNITS/HR Sodium Chloride 1,000 mls @ 50 mls/hr 07/26/23 20:53 07/26/23 22:59 Sod Chlor 0.9% 1000ml Bag IV 07/27/23 16:52 50 mls/hr .Q20H ONE Administration Miscellaneous 1 each 07/26/23 19:30 Heparin Drip Consult NOTAPPLIC 08/25/23 19:29 CONSULT PHARMACY [facility] Morphine Sulfate 2 mg 07/26/23 20:42 Morphine 2mg/Ml Syringe IV 08/25/23 20:41 Q2HP PRN Severe Pain (7-10) Nicotine 21 mg 07/26/23 20:42 Nicotine 21mg/24hr Patch TD 08/25/23 20:41 DAILYP PRN Nicotine Cravings Ondansetron HCl 4 mg 07/26/23 20:42 Ondansetron 4mg/2ml Vial IV 08/25/23 20:41 Q8HP PRN Nausea Pantoprazole Sodium 40 mg 07/26/23 20:45 07/26/23 23:01 Pantoprazole 40mg Tablet PO 08/25/23 20:44 40 mg DAILY SCOOBY Administration Discontinued Medications Generic Name Dose Route Start Last Admin Trade Name Héctorq PRN Reason Stop Dose Admin Heparin Sodium (Porcine) 9,000 unit 07/26/23 19:26 07/26/23 20:21 Heparin Sodium 5,000 Unit/Ml Vial IV 07/26/23 19:27 9,000 unit ONCE ONE Administration ORDERS Category Date Time Status Cardiology Consult [Consult to Cardiology] [CONS] Cons 07/26/23 20:45 Active Routine Pulmonology Consult [Consult to Pulmonology] [CONS] Cons 07/26/23 20:45 Active Routine POCUS Point of Care (ER Only) Stat Exams 07/26/23 19:27 Taken CBC w/Auto Diff [Complete Blood Count Auto Diff] Stat Lab 07/26/23 19:40 Completed CMP [Comprehensive Metabolic Panel] Stat Lab 07/26/23 19:40 Completed Complete Blood Count Auto Diff AMLAB Lab 07/27/23 06:00 Ordered Comprehensive Metabolic Panel AMLAB Lab 07/27/23 06:00 Ordered Heparin drip PTT [PTT Heparin (inpatient only)] Stat Lab 07/26/23 22:35 Completed Magnesium AMLAB Lab 07/27/23 06:00 Ordered NT Pro Brain Natriuretic Pep. Stat Lab 07/26/23 19:40 Completed PT INR [Prothrombin Time INR] Stat Lab 07/26/23 19:40 Completed PTT Heparin (inpatient only) Stat Lab 07/26/23 19:40 Completed PTT [Activated Partial Thrombo Time] Stat Lab 07/26/23 19:40 Completed Trop I [Troponin I] Stat Lab 07/26/23 19:40 Completed Troponin I Q3H Lab 07/26/23 22:35 Completed Troponin I Q3H Lab 07/27/23 01:30 Ordered MDM Narrative Medical Decision Narrative: 73-year-old female history of hypertension, hyperlipidemia, pulmonary hypertension, recent left-sided total knee replacement at [place] presenting with shortness of breath. Patient states that she has been doing well, and physical therapy etc. Today she started feeling short of breath. Because of recent surgery, family doctor performed CT PE which was concerning for bilateral segmental pulmonary artery blood clots with concern for right heart strain. Patient was instructed to come immediately to the emergency department. No chest pain, nausea or vomiting, syncope, neurologic deficits. She states she is short of breath and noticed that her lips were blue with some exertion, but not at rest. History was obtained via conversation with patient. On arrival, patient hemodynamically stable, alert, oriented x4, appropriate, GCS 15, moving all extremities spontaneously, pupils equal and reactive to light. Full physical exam performed and significant for well-appearing woman in no acute distress. Mildly hypertensive 150/80, pulse of 79, 95% on room air, afebrile and breathing 15 times a minute. No increased work of breathing. Lungs are clear to auscultation anterior and posterior bilaterally. No lower extremity edema outside of wound with normal of her left lower extremity. Left lower extremity postsurgical site clean, dry, intact with overlying dressings. Resolving bruising. Differential includes PE, cor pulmonale, ACS, NH, pneumothorax, among other. Patient was given heparin bolus and drip for symptomatic management and correction of underlying abnormalities. Workup independently interpreted and significant for leukocytosis 12.1 with neutrophilic shift, chemistry nonactionable. Coags nonactionable. Independent rotation of CT PE with bilateral clot burden, nearly 1-1 right heart to left heart ratio. See radiology read for full review of final results. Independent interpretation of EKG shows sinus rhythm [address] or T wave changes concerning for acute ischemia. Patient placed on continuous cardiac monitoring and continuous pulse ox with initial blood pressure 151/83, heart rate 99, saturation 95% on room air. Heart score 4. Prior to labs and imaging, patient empirically started on heparin bolus and drip. Bedside [id number] ultrasound demonstrated no acute right heart strain. [facility], [facility], [facility] were all contacted and case was discussed individually, hospitals are full, no ability to transfer. Specifically, given negative troponin and BNP, he received [facility] recommended admission here with no intervention necessary. Hospitalist here at [facility] was contacted and case was discussed at length. Agreeable to admission. Because patient high risk for clinical decompensation, deemed appropriate for inpatient admission. Results were relayed to patient who voiced understanding and patient was agreeable to inpatient admission and management. Patient was admitted to the hospital for further definitive management.
--- NOTE | 2023-07-26 20:54 | PC.NURSE ---
patient being admitted to floor front of house manager notified of need for bed
--- NOTE | 2023-07-26 20:58 | PC.NURSE ---
house rn notified er staff that admission will be delay due to moving beds
--- NOTE | 2023-07-26 22:25 | PC.NURSE ---
Patient arrived to floor via stretcher from ED at 22:22.
--- OUTSIDE RECORDS SUMMARY | 2023-07-26 22:29 | XMS_ITS | Clinical Summary ---
Author Name Unknown Address [address] [place] [address] Phone Organization [facility] Address [address] [place] [address] Phone Care Team Providers Care Music Manager Name Role Phone Chris SCHULTZ, Milan Andrew [ ] Conditions or Problems Problem Name Problem Code Onset Date Status Entry Date Provider Comment Standard Description Annotate Diverticulitis of large intestine with perforation and abscess without bleeding K57.20 (ICD-10-C M) 04/24 Active 04/24 Laura Glez Diverticulitis of large intestine with perforation and abscess without bleeding Primary pulmonary HTN 86140181 (SNOMED CT) 04/24 Active 04/24 Laura Glez Pulmonary arterial hypertension Medications Medication Instructions Start Date Stop Date Generic Name [facility] Provider INVANZ 1 GM INJECTION SOLUTION RECONSTITUTED [facility] [id number] Shilpa Murphy INVANZ 1 GM INJECTION SOLUTION RECONSTITUTED In[facility]UM [id number] Shilpa Murphy BUMETANIDE 1 MG TABS Take 1 tablet by mouth daily BUMETANIDE [id number] Dori Boss KETOROLAC TROMETHAMINE 10 MG TABS Take 1 tablet by mouth daily KETOROLAC TROMETHAMINE [id number] Dori Boss LEVOFLOXACIN 500 MG TABS Take 1 tablet by mouth daily LEVOFLOXACIN [id number] Dori Boss MELOXICAM 7.5 MG TABS Take 1 tablet by mouth daily MELOXICAM [id number] Dori Boss ONDANSETRON HCL 4 MG TABS Take 1 tablet by mouth daily ONDANSETRON HCL [id number] Dori Boss KLOR-CON M10 10 MEQ CR-TABS Take one (1) tablet by mouth twice a day POTASSIUM CHLORIDE HERMELINDA ER [id number] Dori Karyn Medications Administered No information available. Allergies, Adverse Reactions, Alerts Allergy Name Reaction Description Start Date Severity Statu s Provider PENICILLIN Critical Active Winston Boss Results Date Name Value Unit Range Flag Description Chart Maintenance: CBC LYMPHS % 25 % Lymphocytes/ 100 leukocytes in Blood by Automated count Lab Report: CBC WITH AUTO DI FFERENTIAL ZZ-GE-unk 0.0 /100 WBC 0.0-0.2 GE use only - fo r Link[employer]ic import when terms are not otherwise specified IMMATUREGRAN 0.04 10*3/MM3 0.00-0.05 Immature granulocytes [#/volume] in Blood BASO# 0.06 10*3/mm3 0.00-0.20 Basophils [#/vol ume] in Blood EOS ABSLT 0.21 10*3/uL 0.00-0.40 Eosinophi ls [#/volume] in Blood MONOSCT AUTO 0.67 10*3/uL 0.10-0.90 Monocy uday [#/volume] in Blood by Automated count LYMPHCT AUTO 2.82 10*3/mm3 0.70-3.10 Lymph ocytes [#/volume] in Blood by Automated count ABS NEUTROPH 9.14 10*3/uL 1.70-7.00 H Neutro phils [#/volume] in Blood IMM GRANU % 0.3 % 0.0-0.5 Immature granulocytes/100 leukocytes in Blood % EOS AUTO 1.6 % 0.3-6.2 Eosinophil s/100 leukocytes in Blood by Automated count MONOCYTE % 5.2 % 5.0-12.0 Monocytes /100 leukocytes in Blood by Automated count LYMPHOCY BF 21.8 % 19.6-45.3 lymphoc ytes as percent of body fluid leukocytes NEUTROP BF 70.6 % 42.7-76.0 Neutroph ils/100 leukocytes in Body fluid PLATELETS 417 10*3/mm3 140-450 Platelets [#/volume] in Blood by Automated count RDW 13.8 % 12.3-15.4 Erythrocyte distribution width [Ratio] by Automated count MCHC 31.1 G/DL 31.5-35.7 L MCHC [Mass/ volume] by Automated count MCH 28.6 pg 26.6-33.0 MCH [Entiti c mass] by Automated count MCV 92.0 fL 79.0-97.0 MCV [Entiti c volume] by Automated count HCT 40.2 % 34.0-46.6 Hematocrit [Volume Fraction] of Blood by Automated count HGB 12.5 g/dL 12.0-15.9 Hemoglobin [Mass/volume] in Blood RBC 4.37 10*6/mm3 3.77-5.28 Erythrocyt es [#/volume] in Blood by Automated count WBC 12.94 10*3/mm3 3.40-10.8 0 H Leukocytes [#/volume] in Blood by Automated count Lab Report: SEDIMENTATION RA TE ESR 58 mm/h 0-30 H Erythrocyte sedimentation rate by Westergren method Lab Report: C-REACTIVE PROTE IN CRP 1.90 mg/dL 0.00-0.50 H C reactive protein [Mass/volume] in Serum or Plasma Lab Report: COMPREHENSIVE ME TABOLIC PANEL ANIONGAP 11.0 mmol/L 5.0-15.0 anion gap, serum BUN/CREAT 22.4 7.0-25.0 Urea nitrogen/Creatinine [Mass Ratio] in Serum or Plasma GFRC 88 mL/min/1. 73m2 >60 Glomerular Filtration Rate Calculation BILI TOTAL 0.3 mg/dL 0.2-1.2 Bilirubin. total [Mass/volume] in Serum or Plasma ALK PHOS 99 U/L 39-117 Alkaline tatyana sphatase [Enzymatic activity/volume] in Blood SGOT (AST) 24 U/L 1-32 Aspartate aminotransferase [Enzymatic activity/volume] in Serum or Plasma SGPT (ALT) 16 U/L 1-33 Alanine aminotransferase [Enzymatic activity/volume] in Serum or Plasma ALBUMIN 3.90 g/dL 3.50-5.20 Albumin [Mass/volume] in Serum or Plasma PROTEIN, TOT 7.5 g/dL 6.0-8.5 Protein [Mass/volume] in Serum or Plasma CALCIUM 10.0 mg/dL 8.6-10.5 Calcium [Moles/volume] in Serum or Plasma CO2 27.0 mmol/L 22.0-29.0 Carbon diox soo, total [Moles/volume] in Venous blood CHLORIDE 103 mmol/L 98-107 Chloride [Moles/volume] in Serum or Plasma POTASSIUM 4.2 mmol/L 3.5-5.2 Potassium [Moles/volume] in Serum or Plasma SODIUM 141 mmol/L 136-145 Sodium [Moles/volume] in Serum or Plasma CREATININE 0.67 mg/dL 0.57-1.00 Creatini ne [Mass/volume] in Serum or Plasma BUN 15 mg/dL 8-23 Urea nitrogen [Mass/volume] in Serum or Plasma GLUCOSE SER 98 mg/dL 65-99 Glucose [Mass/volume] in Serum or Plasma Office Visit: Room 12 MEDS REVIEW Done Documenta tion of current medications (procedure) ORALTOBACUSE Never Tobacco smoking status SMOK STATUS Never smoker Tobacco smoking status Lab Report: CBC With Differe ntial/Platelet, Comp. Metabolic Panel (14) A/G RATIO 1.0 g/dL Albumin/Ann bulin [Mass Ratio] in Serum or Plasma GLOBULIN 3.6 Globulin [Mass/volume] in Serum EGFR NOT AFA 94 mL/min/1. 73m2 >60 Glomerular filtration rate/1.73 sq M.predicted among non-blacks [Volume Rate/Area] in Serum, Plasma or Blood by Creatinine-based formula (MDRD) BG RANDOM 118 mg/dL 65-99 H Glucose [Mass/volume] in Blood BASOPHIL % 0.5 % 0.0-1.5 Basophils/ 100 leukocytes in Blood by Manual count PMN % 69.5 % 42.7-76.0 Neutrophils /100 leukocytes in Blood by Automated count Plan of Care Type Date Detail Pending order Discontinue IV a ntibiotics Pending order CMP Pending order CBC w/o Differen tial Pending order Discontinue IV a ntibiotics Pending order Stat Weekly Labs Pending order Continue IV anti biotics Pending order CMP Pending order CBC w/o Differen tial Pending order Continue IV anti biotics Pending order Weekly PICC Line Care Pending order Stat Weekly Labs Pending order Weekly PICC Line Care Pending Order exclud ed from report: Pending order Continue IV anti biotics Pending order Weekly Labs (Con tinue) Pending order CMP Pending order CBC w/o Differen tial Pending order Continue IV anti biotics Procedures Code Procedure Name Date Entry Date CPT-DC Discontinue IV antibiotics 2 CPT-61611 CMP CPT-24440 CBC w/o Differential CPT-DC Discontinue IV antibiotics 2 CPT- stat weekly Stat Weekly Labs CPT-wpc Weekly PICC Line Care 04/29 CPT-ca Continue IV antibiotics 2018 CPT-10147 CMP CPT-78686 CBC w/o Differential CPT-ca Continue IV antibiotics 2018 CPT- stat weekly Stat Weekly Labs CPT-ca Continue IV antibiotics 2018 CPT-cwl Weekly Labs (Continue) 02/22 CPT-06092 CMP CPT-03820 CBC w/o Differential CPT-ca Continue IV antibiotics 2018 Vital Signs Date Name Value Unit Description BMI (Body Mass Index) 35.74 kg/m2 Bod y Mass Index (Ratio) Body Temperature 98.2 [degF] temperat ure E&M BP Diastolic 70 mm[Hg] blood pressu re, diastolic BP Systolic 124 mm[Hg] blood pressur e, systolic Heart Rate 72 /min pulse rate Respiratory Rate 16 /min respirat ory rate E&M Weight Measured 228.2 [lb_av] weight E& M Height 67 [in_us] height E&M Immunizations No information available. Advance Directives No information available.
[2023-07-26] MEDS: 0.9 % SODIUM CHLORIDE 1000ML 1,000 ML 50 ML IV (22:59)
[2023-07-26] MEDS: PANTOPRAZOLE 40MG TABLET 40 MG PO (23:01)
[2023-07-26 23:03] LABS: Troponin I 0.02 ng/ml (0.00-0.034)
[2023-07-26 23:33] LABS: PTT Heparin (inpatient only) > 200.0 Seconds (23.6-34.0)
[2023-07-27] VITALS (9 sets, daily range): BP systolic 133–161; BP diastolic 71–85; PULSE 60–82; RESP 14–25; O2SAT 89–95; BMI 31.8
[2023-07-27 01:51] LABS: Troponin I 0.01 ng/ml (0.00-0.034)
[2023-07-27] MEDS: HEPARIN DRIP CONSULT 1 EACH NOTAPPLIC (03:11)
[2023-07-27] MEDS: HEPARIN SODIUM,PORCINE/D5W 500 ML 34 UNIT IV (03:12)
[2023-07-27 07:13] LABS: Alanine Aminotransferase 19 U/L (12-78); Albumin Level 3.3 g/dl (3.5-5.0); Albumin/Globulin Ratio 1.3 (1.1-1.8); Alkaline Phosphatase 97 U/L (38-126); Anion Gap 9.8 mEq/L (5-15); Aspartate Amino Transferase 31 U/L (14-36); Bilirubin,Total 0.7 mg/dl (0.2-1.3); Blood Urea Nitrogen 20 mg/dl (7-17); Calcium 8.6 mg/dl (8.4-10.2); Carbon Dioxide 27 mmol/L (22.0-30.0); Chloride 103 mmol/L (98-107); Creatinine Clearance Estimated 74 mL/min (50-200); Estimated Glomerular Filt Rate 98 ml/min (>60); GFR (African American) 119 ML/MIN (>60); Globulin 2.5 g/dL (1.3-3.2); Glucose 104 mg/dl (74-100); Potassium 3.8 mmoL/L (3.5-5.1); Sodium 136 mmol/L (136-145); Total Protein,Serum 5.8 g/dl (6.3-8.2)
[2023-07-27 07:17] LABS: Basophils # 0.1 K/mm3 (0-0.2); Basophils % 0.7 % (0.1-2.0); Eosinophils # 0.4 K/mm3 (0.0-0.4); Eosinophils % 4.2 % (0.1-12.0); Hematocrit 34.2 % (37.0-47.0); Lymphocytes # 3.1 K/mm3 (0.7-4.5); Lymphocytes % 28.8 % (10-50); Mean Corpuscular Hemoglobin 30.3 pg (27.0-31.2); Mean Corpuscular Volume 94.6 fl (81-99); Mean Platelet Volume 8.1 fl (7.4-10.4); Monocytes # 0.7 K/mm3 (0.1-1.0); Monocytes % 6.1 % (1.7-9.3); Neutrophils # 6.4 K/mm3 (1.8-7.8); Neutrophils % 60.2 % (37.0-80.0); Platelet Count 232 K/mm3 (142-424); Red Blood Count 3.61 M/mm3 (4.20-5.40); Red Cell Distribution Width 14.9 % (11.5-17.5); White Blood Count 10.7 K/mm3 (4.8-10.8)
[2023-07-27] MEDS: ACETAMINOPHEN 325MG TAB 650 MG PO (07:39)
[2023-07-27 08:05] LABS: PTT Heparin (inpatient only) 105.5 Seconds (23.6-34.0)
[2023-07-27] MEDS: HEPARIN SODIUM,PORCINE/D5W 500 ML 28 UNIT IV (08:13)
[2023-07-27 10:18] LABS: PTT Heparin (inpatient only) 101.6 Seconds (23.6-34.0)
[2023-07-27 12:04] LABS: PTT Heparin (inpatient only) 66.8 Seconds (23.6-34.0)
[2023-07-27] MEDS: HYDROCODONE/APAP 5/325 MG TABLET 1 TAB PO (12:15)
--- NOTE | 2023-07-27 12:35 | P.CONPHA_ITS ---
Pharmacy Consult Date: 07/27/23 Time: 12:35 Referring provider: DR. COSTELLO Allergies Allergy/AdvReac Type Severity Reaction Status Date / Time Penicillins [PENICILLINS] Allergy Unknown Verified 03/17/23 08:25 furosemide [From Lasix] Allergy Verified 03/17/23 08:25 losartan Allergy Verified 03/17/23 08:25 Sulfa (Sulfonamide Allergy Verified 07/26/23 23:50 Antibiotics) Home Medications Medication Instructions Recorded Confirmed Type meloxicam 15 mg tablet 15 mg PO DAILY 30 days 08/24/17 07/26/23 History bumetanide 1 mg tablet 1 mg PO DIRECTED Fluid 09/09/19 03/17/23 History paroxetine HCl 20 mg tablet (Paxil) 20 mg PO DAILY 09/09/19 07/27/23 History metformin 500 mg tablet 500 mg PO DAILY 07/26/23 07/26/23 History pregabalin 75 mg capsule 75 mg PO HS 07/26/23 07/26/23 History Lactobacillus acidophilus 0.5 mg 0.5 mg PO BID 07/27/23 07/27/23 History (100 million cell) tablet diltiazem HCl 180 mg 180 mg PO DAILY 07/27/23 07/27/23 History capsule,extended release 24 hr potassium chloride 10 mEq 10 meq PO DAILY 07/27/23 07/27/23 History tablet,extended release New Prescriptions to Start Prescriptions: Height: 1.7 m Weight: 92.108 kg Laboratory Results:: Laboratory Results - last 24 hr 07/26/23 19:40: WBC 12.1 H, RBC 3.94 L, Hgb 12.1 L, Hct 37.2, MCV 94.4, MCH 30.6, MCHC 32.4, RDW 15.0, Plt Count 267, MPV 8.3, Neut % (Auto) 69.2, Lymph % (Auto) 22.0, [place] % (Auto) 4.6, Eos % (Auto) 3.8, Baso % (Auto) 0.4, Neut # (Auto) 8.4 H, Lymph # (Auto) 2.7, [place] # (Auto) 0.6, Eos # (Auto) 0.5 H, Baso # (Auto) 0.1, PT 10.7, INR 0.99, APTT 25.1 07/26/23 19:40: APTT 25.1, Sodium 136, Potassium 3.9, Chloride 101, Carbon Dioxide 26, Anion Gap 12.9, BUN 23 H, Creatinine 0.80, Estimated Creat Clear 91, Estimated GFR 71, Est GFR ( Amer) 85, Glucose 186 H D, Calcium 9.1, Total Bilirubin 0.8, AST 41 H D, ALT 28 D, Alkaline Phosphatase 107, Troponin I 0.02, NT-Pro-B Natriuret Pep 44.0, Total Protein 6.5, Albumin 3.7, Globulin 2.8, Albumin/Globulin Ratio 1.3 07/26/23 22:35: APTT > 200.0 H*, Troponin I 0.02 07/26/23 23:47: APTT 174.0 H* 07/27/23 01:15: APTT 200.0 H*, Troponin I 0.01 07/27/23 02:30: APTT 200.0 H* 07/27/23 06:55: WBC 10.7, RBC 3.61 L, Hgb 11.0 L, Hct 34.2 L, MCV 94.6, MCH 30.3, MCHC 32.0, RDW 14.9, Plt Count 232, MPV 8.1, Neut % (Auto) 60.2, Lymph % (Auto) 28.8, [place] % (Auto) 6.1, Eos % (Auto) 4.2, Baso % (Auto) 0.7, Neut # (Auto) 6.4, Lymph # (Auto) 3.1, [place] # (Auto) 0.7, Eos # (Auto) 0.4, Baso # (Auto) 0.1, APTT 105.5 H*, Sodium 136, Potassium 3.8, Chloride 103, Carbon Dioxide 27, Anion Gap 9.8, BUN 20 H, Creatinine 0.60 D, Estimated Creat Clear 74, Estimated GFR 98, Est GFR ( Amer) 119 D, Glucose 104 H D, Calcium 8.6, Magnesium 2.0, Total Bilirubin 0.7, AST 31, ALT 19 D, Alkaline Phosphatase 97, Total Protein 5.8 L, Albumin 3.3 L D, Globulin 2.5, Albumin/Globulin Ratio 1.3 07/27/23 09:20: APTT 101.6 H* 07/27/23 11:42: APTT 66.8 H* Medical History: Medical History (Updated 07/26/23 @ 23:33 by Salvador Oates APRN) HTN (hypertension) Pelvic abscess Perforation bowel Dizziness
--- NOTE | 2023-07-27 12:39 | HMH.PHAHEP ---
[facility] Pharmacy Heparin Dosing Demographic Data Admission date:: 07/27/23 Date: 07/27/23 Time: 12:39 Allergies Allergy/AdvReac Type Severity Reaction Status Date / Time Penicillins [PENICILLINS] Allergy Unknown Verified 03/17/23 08:25 furosemide [From Lasix] Allergy Verified 03/17/23 08:25 losartan Allergy Verified 03/17/23 08:25 Sulfa (Sulfonamide Allergy Verified 07/26/23 23:50 Antibiotics) Height: 1.7 m Weight: 92 kg Indication Medication therapy:: Heparin Current Active Problems (Updated 07/26/23 @ 23:33 by Salvador Oates APRN) History of arthroplasty of left knee (Acute) Obesity (Acute) Cor pulmonale, acute (Acute) Bilateral pulmonary embolism (Acute) HTN (hypertension) (Chronic) Perforation bowel (Acute) Anxiety with depression (Acute) CVA?: No Bleeding problem?: No Kidney disease?: No CT?: No Desired PTT range:: 50-75 seconds Labs Anticoagulation Lab Results:: 07/26/23 07/27/23 19:40 06:55 Hgb 12.1 L 11.0 L Hct 37.2 34.2 L Plt Count 267 232 Monitoring Dose Monitor 1: Date: 07/26/23 Time: 19:40 PTT Result:: 25.1 Infusion Rate:: HEPARIN 40 ML/HR (2000 UNITS/HR), HEPARIN 9000 UNITS BOLUS Dose Monitor 2: Date: 07/26/23 Time: 22:35 PTT Result:: >200.0 Infusion Rate:: CONTINUE HEPARIN 40 ML/HR Dose Monitor 3: Date: 07/26/23 Time: 23:47 PTT Result:: 174 Infusion Rate:: CONTINUED HEPARIN 40 ML/HR Dose Monitor 4: Date: 07/27/23 Time: 01:15 PTT Result:: 200.0 Infusion Rate:: CONTINUED HEPARIN 40 ML/HR Dose Monitor 5: Date: 07/27/23 Time: 02:30 PTT Result:: 200.0 Infusion Rate:: CONTINUE WITH HEPARIN 34 ML/HR (1700 UNITS/HR) Dose Monitor 6: Date: 07/27/23 Time: 06:55 PTT Result:: 105.5 Infusion Rate:: DOSE DECREASED TO HEPARIN 28 ML/HR (1400 UNITS/HR) Dose Monitor 7: Date: 07/27/23 Time: 09:20 PTT Result:: 101.6 Infusion Rate:: DOSE DECREASED TO HEPARIN 22 ML/HR (1100 UNITS/HR) Dose Monitor 8: Date: 07/27/23 Time: 11:42 PTT Result:: 66.8 Infusion Rate:: DOSE CONTINUED AT HEPARIN 22 ML/HR (1100 UNITS/HR) Comment:: XARELTO STARTED AND HEPARIN DRIP STOPPING IN 2 HRS. Core Measures Is INR > or = 2 at discharge?: No Most Recent Labs:: Laboratory Results - last 24 hr 07/26/23 19:40: WBC 12.1 H, RBC 3.94 L, Hgb 12.1 L, Hct 37.2, MCV 94.4, MCH 30.6, MCHC 32.4, RDW 15.0, Plt Count 267, MPV 8.3, Neut % (Auto) 69.2, Lymph % (Auto) 22.0, [place] % (Auto) 4.6, Eos % (Auto) 3.8, Baso % (Auto) 0.4, Neut # (Auto) 8.4 H, Lymph # (Auto) 2.7, [place] # (Auto) 0.6, Eos # (Auto) 0.5 H, Baso # (Auto) 0.1, PT 10.7, INR 0.99, APTT 25.1 07/26/23 19:40: APTT 25.1, Sodium 136, Potassium 3.9, Chloride 101, Carbon Dioxide 26, Anion Gap 12.9, BUN 23 H, Creatinine 0.80, Estimated Creat Clear 91, Estimated GFR 71, Est GFR ( Amer) 85, Glucose 186 H D, Calcium 9.1, Total Bilirubin 0.8, AST 41 H D, ALT 28 D, Alkaline Phosphatase 107, Troponin I 0.02, NT-Pro-B Natriuret Pep 44.0, Total Protein 6.5, Albumin 3.7, Globulin 2.8, Albumin/Globulin Ratio 1.3 07/26/23 22:35: APTT > 200.0 H*, Troponin I 0.02 07/26/23 23:47: APTT 174.0 H* 07/27/23 01:15: APTT 200.0 H*, Troponin I 0.01 07/27/23 02:30: APTT 200.0 H* 07/27/23 06:55: WBC 10.7, RBC 3.61 L, Hgb 11.0 L, Hct 34.2 L, MCV 94.6, MCH 30.3, MCHC 32.0, RDW 14.9, Plt Count 232, MPV 8.1, Neut % (Auto) 60.2, Lymph % (Auto) 28.8, [place] % (Auto) 6.1, Eos % (Auto) 4.2, Baso % (Auto) 0.7, Neut # (Auto) 6.4, Lymph # (Auto) 3.1, [place] # (Auto) 0.7, Eos # (Auto) 0.4, Baso # (Auto) 0.1, APTT 105.5 H*, Sodium 136, Potassium 3.8, Chloride 103, Carbon Dioxide 27, Anion Gap 9.8, BUN 20 H, Creatinine 0.60 D, Estimated Creat Clear 74, Estimated GFR 98, Est GFR ( Amer) 119 D, Glucose 104 H D, Calcium 8.6, Magnesium 2.0, Total Bilirubin 0.7, AST 31, ALT 19 D, Alkaline Phosphatase 97, Total Protein 5.8 L, Albumin 3.3 L D, Globulin 2.5, Albumin/Globulin Ratio 1.3 07/27/23 09:20: APTT 101.6 H* 07/27/23 11:42: APTT 66.8 H* If INR was < than 2.0 why was therapy stopped?: XARELTO Were Heparin and Warfarin started on the same day?: No If not, why?: XARELTO
--- NOTE | 2023-07-27 12:43 | EXP.CARD.CON ---
History of Present Illness History of Present Illness Consult date: 07/27/23 Requesting physician: Jozef Moss Consult reason: shortness of breath Chief complaint: Dyspnea History of present illness: This is a 73-year-old female with past medical history of hypertension, hyperlipidemia, obesity, cor pulonale, non-Hodgkin's lymphoma treated with radiation and a hx of perforation of the bowel with recently reversed ostomy, that was recently discharged from [facility] after left total knee replacement 2 weeks ago. Patient doing okay until found a bluish color around her lips when showering. Patient called her primary care doctor who ordered an x-ray. A cta chest was also obtained which showed bilateral pulmonary emboli with right heart strain. Of note patient was discharged home post op on tranexamic acid. patient was sent to ER for further eval. Labs as follow: WBC 12.1, hemoglobin 12.1, sodium 136, potassium 3.9, creatinine 0.8, troponin negative. Patient was started on hep drip and admitted for further management. [facility] Disclaimer: The information contained in this section may have been updated after the patient was seen, as this information can be updated by other users. Medical History (Updated 07/26/23 @ 23:33 by Salvador Oates APRN) HTN (hypertension) Pelvic abscess Perforation bowel Dizziness Surgical History (Updated 07/27/23 @ 06:01 by Salvador Oates APRN) No significant past surgical history Family History Other No significant family history Social History Smoking Status: Never smoker second hand exposure: No alcohol intake: never substance use type: denies use current occupational status: other Travel in the last 8 weeks: None household members: family housing: house Review of Systems Review of Systems Review of systems:: pertinent systems reviewed and negative unless documented below Exam Data for Last 24 hours Vital signs and Labs for Last 24 Hours: Temp Pulse Resp BP Pulse Ox O2 Del Method 98.4 F 66 24 144/72 H 93 L Room Air 07/26/23 23:21 07/27/23 10:00 07/27/23 10:00 07/27/23 10:00 07/27/23 08:00 07/27/23 10:00 Laboratory Results - last 24 hr 07/26/23 19:40: WBC 12.1 H, RBC 3.94 L, Hgb 12.1 L, Hct 37.2, MCV 94.4, MCH 30.6, MCHC 32.4, RDW 15.0, Plt Count 267, MPV 8.3, Neut % (Auto) 69.2, Lymph % (Auto) 22.0, [place] % (Auto) 4.6, Eos % (Auto) 3.8, Baso % (Auto) 0.4, Neut # (Auto) 8.4 H, Lymph # (Auto) 2.7, [place] # (Auto) 0.6, Eos # (Auto) 0.5 H, Baso # (Auto) 0.1, PT 10.7, INR 0.99, APTT 25.1 07/26/23 19:40: APTT 25.1, Sodium 136, Potassium 3.9, Chloride 101, Carbon Dioxide 26, Anion Gap 12.9, BUN 23 H, Creatinine 0.80, Estimated Creat Clear 91, Estimated GFR 71, Est GFR ( Amer) 85, Glucose 186 H D, Calcium 9.1, Total Bilirubin 0.8, AST 41 H D, ALT 28 D, Alkaline Phosphatase 107, Troponin I 0.02, NT-Pro-B Natriuret Pep 44.0, Total Protein 6.5, Albumin 3.7, Globulin 2.8, Albumin/Globulin Ratio 1.3 07/26/23 22:35: APTT > 200.0 H*, Troponin I 0.02 07/26/23 23:47: APTT 174.0 H* 07/27/23 01:15: APTT 200.0 H*, Troponin I 0.01 07/27/23 02:30: APTT 200.0 H* 07/27/23 06:55: WBC 10.7, RBC 3.61 L, Hgb 11.0 L, Hct 34.2 L, MCV 94.6, MCH 30.3, MCHC 32.0, RDW 14.9, Plt Count 232, MPV 8.1, Neut % (Auto) 60.2, Lymph % (Auto) 28.8, [place] % (Auto) 6.1, Eos % (Auto) 4.2, Baso % (Auto) 0.7, Neut # (Auto) 6.4, Lymph # (Auto) 3.1, [place] # (Auto) 0.7, Eos # (Auto) 0.4, Baso # (Auto) 0.1, APTT 105.5 H*, Sodium 136, Potassium 3.8, Chloride 103, Carbon Dioxide 27, Anion Gap 9.8, BUN 20 H, Creatinine 0.60 D, Estimated Creat Clear 74, Estimated GFR 98, Est GFR ( Amer) 119 D, Glucose 104 H D, Calcium 8.6, Magnesium 2.0, Total Bilirubin 0.7, AST 31, ALT 19 D, Alkaline Phosphatase 97, Total Protein 5.8 L, Albumin 3.3 L D, Globulin 2.5, Albumin/Globulin Ratio 1.3 07/27/23 09:20: APTT 101.6 H* 07/27/23 11:42: APTT 66.8 H* I & O for Last 24 hours: Intake & Output 07/24/23 07/25/23 07/26/23 07/27/23 23:59 23:59 23:59 23:59 Output Total 300 / 300 Balance -300 / -300 Weight 256 lb 11.2 oz 203 lb 1 oz Constitutional Constitutional: no acute distress *Routine Respiratory Exam Respiratory: Present CTA bilaterally and symmetric chest movement *Routine Cardiovascular Exam Cardiovascular: Present RRR, Normal S1 and Normal S2 *Routine Abdominal Exam Abdominal: Present soft and normoactive bowel sounds; Absent tenderness *Routine Extremities Exam Extremities: Present full ROM and normal capillary refill; Absent edema *Routine Skin Exam Skin: Present intact, dry and warm Detailed Neck Exam: Thyroids Thyroid: Absent bruit Meds Home Medications and Allergies Home Medications Medication Instructions Recorded Confirmed Type bumetanide 1 mg tablet 1 mg PO DIRECTED Fluid 09/09/19 03/17/23 History paroxetine HCl 20 mg tablet (Paxil) 20 mg PO DAILY 09/09/19 07/27/23 History metformin 500 mg tablet 500 mg PO DAILY 07/26/23 07/26/23 History pregabalin 75 mg capsule 75 mg PO HS 07/26/23 07/26/23 History Lactobacillus acidophilus 0.5 mg 0.5 mg PO BID 07/27/23 07/27/23 History (100 million cell) tablet diltiazem HCl 180 mg 180 mg PO DAILY 07/27/23 07/27/23 History capsule,extended release 24 hr hydrocodone 5 mg-acetaminophen 325 1 tab PO Q6HP PRN Severe Pain 07/27/23 Rx mg tablet (7-10) 3 days #12 tabs potassium chloride 10 mEq 10 meq PO DAILY 07/27/23 07/27/23 History tablet,extended release rivaroxaban 15 mg tablet 15 mg PO BID 21 days #41 tabs 07/27/23 Rx rivaroxaban 20 mg tablet (Xarelto) 20 mg PO HS 30 days #30 tabs 07/27/23 Rx New Prescriptions to Start Prescriptions: hydrocodone-acetaminophen Jozef Moss rivaroxaban Jozef Moss rivaroxaban [Xarelto] Jozef Moss Allergies Allergy/AdvReac Type Severity Reaction Status Date / Time Penicillins [PENICILLINS] Allergy Unknown Verified 03/17/23 08:25 furosemide [From Lasix] Allergy Verified 03/17/23 08:25 losartan Allergy Verified 03/17/23 08:25 Sulfa (Sulfonamide Allergy Verified 07/26/23 23:50 Antibiotics) Assessment and Plan *Assessment and plan (1) Bilateral pulmonary embolism: Status: Acute Category: Medical Code(s): I26.99 - Other pulmonary embolism without acute cor pulmonale (2) History of arthroplasty of left knee: Status: Acute Category: Surgical Code(s): Z96.652 - Presence of left artificial knee joint Plan Bilateral PE- PESI score 82- Low risk Hx of cor pulmonale Recent left knee surgery-DC'd home on tranexamic acid post op Bilateral PE noted on cta chest Echocardiogram 07/27/2023: Normal LV function, mild RV dilation with mild reduction in RV function, moderate TR, RVSP 40-45 Start Xarelto 15 mg twice daily for 21 days followed by 20 mg once daily Risks vs. benefits of DOAC therapy discussed with patient, she is agreeable to proceed with therapy. History of palpitations Patient reports she is on diltiazem as treatment for palpitations. Cardiology notes reviewed, patient was initially started on a beta-lizz but couldn't tolerate due to fatigue and weight gain so was switched to diltiazem History of non-Hodgkin's lymphoma Status post radiation treatment. Has follow-up later this year CV summary 07/27/2023: Patient is CV stable for discharge home. Please have patient continue above listed medications and follow-up with cardiology clinic Monday morning for recheck. Patient advised to monitor for bleeding and to go to ER for any bleeding concerns, chest pain , or soa.
[2023-07-27] MEDS: PAROXETINE 20 MG PO (12:48)
[2023-07-27] MEDS: HEPARIN SODIUM,PORCINE/D5W 500 ML 22 UNIT IV (13:25)
[2023-07-27] MEDS: RIVAROXABAN 15MG TABLET 15 MG PO (13:30)
--- NOTE | 2023-07-27 14:10 | P.DS_ITS ---
General Admission date:: 07/26/23 Discharge date: 07/27/23 HPI HPI HPI: This is a 73-year-old obese female with past medical history hypertension, hyperlipidemia, perforation of the bowel, recently reversed ostomy, that was recently discharged from [facility] after left total knee replacement 2 weeks ago. Patient doing okay until found a bluish colored around her lips when showering. Patient called her primary care doctor who ordered an x-ray. Radiology recommended CT of the chest for evaluation of PE. Patient arrived to ED for evaluation. Initially was mildly hypertensive 150/80, pulse of 79, 95% on room air, afebrile, breathing 15/min. No increased work of breathing. Lungs are clear to auscultation anterior and posterior bilaterally. No lower extremity edema outside of wound with normal of her left lower extremity. Left lower extremity postsurgical site clean, dry, intact with overlying dressings. Resolving bruising. Of note chart reviewed, patient has been taking tranexamic acid since discharge. Admitted for further evaluation and treatment. Hospital Course Hospital Course Hospital Course: 73-year-old obese female with past medical history hypertension, hyperlipidemia, perforation of the bowel, recently reversed ostomy, that was recently discharged from [facility] after left total knee replacement 2 weeks ago. Had an episode of bluish coloration around lips. PCP ordered Xray. patient was called to ED for emergency CT concerning of PE. Imaging obtained. concern of bilateral PE with questionable right heart strain. Neurologically patient remains hemodynamically stable, on room air, there is no respiratory distress, lungs auscultation's are clear. because the concern of cor pulmonale. imaging was power shipped to for consideration. Consulted for evaluation. Findings extensively discussed with ED. They request admission. Due to patient been hemodynamically stable, on air, we agreed for admission and monitoring here. Patient was placed on heparin continuous infusion. Did well overnight. Cardiology evaluated. Transition to oral anticoagulation. Stable to discharge home with outpatient follow-up. Problems addressed as follows: Bilateral PE with questionable radiographic signs of cor pulmonale: Pasi score 82-low risk Recent left knee surgery, DC'd home on tranexamic acid postop Patient admitted with bilateral PEs, on room air with concern for radiographic findings of cor pulmonale. Initiated on heparin drip. Evaluated by cardiology the following morning. Patient doing well. She remained stable on room air, was transition to oral anticoagulation. Cardiology recommend starting Xarelto 15 mg twice daily for 21 days followed by 20 mg daily thereafter. Echo from 07/27/2023 showed normal LV function, mild RV dilation and mild reduction in RV function. RVSP 40 to 45mmHg. recommend discontinuing her aspirin which was her postop DVT prophylaxis. Risk factors for developing DVT/PE include use of tranexamic acid, obesity, recent surgery, immobility, history of small B-cell lymphoma. No previous history of clots. Would benefit from consideration for hypercoagulable workup, not initiated at this time however as PEs felt to be provoked by surgery and medications. History of palpitations Hypertension Patient reports she is on diltiazem as treatment for palpitations. 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 Has follow-up later this year. 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 As of February she was 5 months post involved field the of the left axilla. Treatment had been tolerated well. No Beese is at this time. Patient has regular follow-up with oncology at. CT scans performed February 20, 2023 demonstrate no evidence of recurrent or metastatic disease and specifically no evidence of mediastinal, hilar, or axillary lymphadenopathy in the chest or pathologic lymph nodes in the abdomen or pelvis. Has stable lesion in the spleen of undetermined significance. CV summary 07/27/2023: Patient is CV stable for discharge home. Please have patient continue above listed medications and follow-up with cardiology clinic Monday morning for recheck. Patient advised to monitor for bleeding and to go to ER for any bleeding concerns, chest pain , or soa. Recent hx of reversed ostomy after Hx of perforated bowel: Follows with surgery in [place]. Having bowel movements. Anxiety and depression: Continue home Paxil Total time spent on discharge 35 minutes in counseling, documentation, chart review, and direct care with patient. Exam Data for Last 24 hours Vital signs and Labs for Last 24 Hours: Temp Pulse Resp BP Pulse Ox O2 Del Method 98.4 F 82 22 152/75 H 94 L Room Air 07/26/23 23:21 07/27/23 14:00 07/27/23 14:00 07/27/23 14:00 07/27/23 14:00 07/27/23 14:00 Laboratory Results - last 24 hr 07/26/23 19:40: WBC 12.1 H, RBC 3.94 L, Hgb 12.1 L, Hct 37.2, MCV 94.4, MCH 30.6, MCHC 32.4, RDW 15.0, Plt Count 267, MPV 8.3, Neut % (Auto) 69.2, Lymph % (Auto) 22.0, Jerauld % (Auto) 4.6, Eos % (Auto) 3.8, Baso % (Auto) 0.4, Neut # (Auto) 8.4 H, Lymph # (Auto) 2.7, J[place] # (Auto) 0.6, Eos # (Auto) 0.5 H, Baso # (Auto) 0.1, PT 10.7, INR 0.99, APTT 25.1 07/26/23 19:40: APTT 25.1, Sodium 136, Potassium 3.9, Chloride 101, Carbon Dioxide 26, Anion Gap 12.9, BUN 23 H, Creatinine 0.80, Estimated Creat Clear 91, Estimated GFR 71, Est GFR ( Amer) 85, Glucose 186 H D, Calcium 9.1, Total Bilirubin 0.8, AST 41 H D, ALT 28 D, Alkaline Phosphatase 107, Troponin I 0.02, NT-Pro-B Natriuret Pep 44.0, Total Protein 6.5, Albumin 3.7, Globulin 2.8, Albumin/Globulin Ratio 1.3 07/26/23 22:35: APTT > 200.0 H*, Troponin I 0.02 07/26/23 23:47: APTT 174.0 H* 07/27/23 01:15: APTT 200.0 H*, Troponin I 0.01 07/27/23 02:30: APTT 200.0 H* 07/27/23 06:55: WBC 10.7, RBC 3.61 L, Hgb 11.0 L, Hct 34.2 L, MCV 94.6, MCH 30.3, MCHC 32.0, RDW 14.9, Plt Count 232, MPV 8.1, Neut % (Auto) 60.2, Lymph % ( Auto) 28.8, J[place] % (Auto) 6.1, Eos % (Auto) 4.2, Baso % (Auto) 0.7, Neut # (Auto) 6.4, Lymph # (Auto) 3.1, J[place] # (Auto) 0.7, Eos # (Auto) 0.4, Baso # (Auto) 0.1, APTT 105.5 H*, Sodium 136, Potassium 3.8, Chloride 103, Carbon Dioxide 27, Anion Gap 9.8, BUN 20 H, Creatinine 0.60 D, Estimated Creat Clear 74, Estimated GFR 98, Est GFR ( Amer) 119 D, Glucose 104 H D, Calcium 8.6, Magnesium 2.0, Total Bilirubin 0.7, AST 31, ALT 19 D, Alkaline Phosphatase 97, Total Protein 5.8 L, Albumin 3.3 L D, Globulin 2.5, Albumin/Globulin Ratio 1.3 07/27/23 09:20: APTT 101.6 H* 07/27/23 11:42: APTT 66.8 H* I & O for Last 24 hours: Intake & Output 07/24/23 07/25/23 07/26/23 07/27/23 23:59 23:59 23:59 23:59 Output Total 300 / 300 Balance -300 / -300 Weight 116.437 kg 92 kg Constitutional Constitutional: no acute distress, obese and cooperative *Routine HEENT Exam Head: Present normocephalic Eye: Present EOMI and PERRL ENT: Present mucous membranes moist *Routine Neck Exam Neck: Present supple; Absent lymphadenopathy *Routine Respiratory Exam Respiratory: Present CTA bilaterally *Routine Cardiovascular Exam Cardiovascular: Present RRR; Absent murmur *Routine Abdominal Exam Abdominal: Present soft and normoactive bowel sounds; Absent tenderness *Routine Rectal Exam Patient deferred: visual exam *Routine Exam Patient deferred: external exam *Routine Extremities Exam Extremities: Absent cyanosis, clubbing or edema Comments: Left knee with clean dry and intact incision, no active bleeding *Routine Skin Exam Skin: Present warm; Absent rash *Routine Neurological Exam Neurological: Present alert, oriented X3 and moving all extremities; Absent altered mental status Results Data Completed and Pending Labs on day of discharge: Labs from last 24 hours 07/27/23 07/27/23 07/27/23 11:42 09:20 06:55 WBC 10.7 RBC 3.61 L Hgb 11.0 L Hct 34.2 L MCV 94.6 MCH 30.3 MCHC 32.0 RDW 14.9 Plt Count 232 MPV 8.1 Neut % (Auto) 60.2 Lymph % (Auto) 28.8 Jerauld % (Auto) 6.1 Eos % (Auto) 4.2 Baso % (Auto) 0.7 Neut # (Auto) 6.4 Lymph # (Auto) 3.1 J[place] # (Auto) 0.7 Eos # (Auto) 0.4 Baso # (Auto) 0.1 PT INR APTT 66.8 H* 101.6 H* 105.5 H* Sodium 136 Potassium 3.8 Chloride 103 Carbon Dioxide 27 Anion Gap 9.8 BUN 20 H Creatinine 0.60 D Estimated Creat Clear 74 Estimated GFR 98 Est GFR ( Amer) 119 D Glucose 104 H D Calcium 8.6 Magnesium 2.0 Total Bilirubin 0.7 AST 31 ALT 19 D Alkaline Phosphatase 97 Troponin I NT-Pro-B Natriuret Pep Total Protein 5.8 L Albumin 3.3 L D Globulin 2.5 Albumin/Globulin Ratio 1.3 07/27/23 07/27/23 07/26/23 02:30 01:15 23:47 WBC RBC Hgb Hct MCV MCH MCHC RDW Plt Count MPV Neut % (Auto) Lymph % (Auto) J[place]uld % (Auto) Eos % (Auto) Baso % (Auto) Neut # (Auto) Lymph # (Auto) J[place] # (Auto) Eos # (Auto) Baso # (Auto) PT INR APTT 200.0 H* 200.0 H* 174.0 H* Sodium Potassium Chloride Carbon Dioxide Anion Gap BUN Creatinine Estimated Creat Clear Estimated GFR Est GFR ( Amer) Glucose Calcium Magnesium Total Bilirubin AST ALT Alkaline Phosphatase Troponin I 0.01 NT-Pro-B Natriuret Pep Total Protein Albumin Globulin Albumin/Globulin Ratio 07/26/23 07/26/23 07/26/23 22:35 19:40 19:40 WBC 12.1 H RBC 3.94 L Hgb 12.1 L Hct 37.2 MCV 94.4 MCH 30.6 MCHC 32.4 RDW 15.0 Plt Count 267 MPV 8.3 Neut % (Auto) 69.2 Lymph % (Auto) 22.0 Jerauld % (Auto) 4.6 Eos % (Auto) 3.8 Baso % (Auto) 0.4 Neut # (Auto) 8.4 H Lymph # (Auto) 2.7 Jerauld # (Auto) 0.6 Eos # (Auto) 0.5 H Baso # (Auto) 0.1 PT 10.7 INR 0.99 APTT > 200.0 H* 25.1 25.1 Sodium 136 Potassium 3.9 Chloride 101 Carbon Dioxide 26 Anion Gap 12.9 BUN 23 H Creatinine 0.80 Estimated Creat Clear 91 Estimated GFR 71 Est GFR ( Amer) 85 Glucose 186 H D Calcium 9.1 Magnesium Total Bilirubin 0.8 AST 41 H D ALT 28 D Alkaline Phosphatase 107 Troponin I 0.02 0.02 NT-Pro-B Natriuret Pep 44.0 Total Protein 6.5 Albumin 3.7 Globulin 2.8 Albumin/Globulin Ratio 1.3 DS: Diagnosis Discharge Diagnosis (1) Bilateral pulmonary embolism: Status: Acute Code(s): I26.99 - Other pulmonary embolism without acute cor pulmonale (2) History of arthroplasty of left knee: Status: Acute Code(s): Z96.652 - Presence of left artificial knee joint Meds Home Medications and Allergies Home Medications Medication Instructions Recorded Confirmed Type bumetanide 1 mg tablet 1 mg PO DIRECTED Fluid 09/09/19 03/17/23 History paroxetine HCl 20 mg tablet (Paxil) 20 mg PO DAILY 09/09/19 07/27/23 History metformin 500 mg tablet 500 mg PO DAILY 07/26/23 07/26/23 History pregabalin 75 mg capsule 75 mg PO HS 07/26/23 07/26/23 History Lactobacillus acidophilus 0.5 mg 0.5 mg PO BID 07/27/23 07/27/23 History (100 million cell) tablet diltiazem HCl 180 mg 180 mg PO DAILY 07/27/23 07/27/23 History capsule,extended release 24 hr hydrocodone 5 mg-acetaminophen 325 1 tab PO Q6HP PRN Severe Pain 07/27/23 Rx mg tablet (7-10) 3 days #12 tabs potassium chloride 10 mEq 10 meq PO DAILY 07/27/23 07/27/23 History tablet,extended release rivaroxaban 15 mg tablet 15 mg PO BID 21 days #41 tabs 07/27/23 Rx rivaroxaban 20 mg tablet (Xarelto) 20 mg PO HS 30 days #30 tabs 07/27/23 Rx New Prescriptions to Start Prescriptions: hydrocodone-acetaminophen Jozef Moss rivaroxaban Jozef Moss rivaroxaban [Xarelto] Jozef Moss Allergies Allergy/AdvReac Type Severity Reaction Status Date / Time Penicillins [PENICILLINS] Allergy Unknown Verified 03/17/23 08:25 furosemide [From Lasix] Allergy Verified 03/17/23 08:25 losartan Allergy Verified 03/17/23 08:25 morphine Allergy Verified 07/29/23 10:44 Sulfa (Sulfonamide Allergy Verified 07/26/23 23:50 Antibiotics) Discharge Plan Disposition Patient Disposition: Home, Self-Care Condition: Fair Follow up Plan Follow up with: Adriana Williamson APRN [Nurse Practitioner] - 07/31/23 8:30 am Ese Barone APRN [Primary Care Provider] - 07/31/23 9:30 am Prescriptions/Medication Reconciliation: New hydrocodone-acetaminophen 5-325 mg Tablet 1 tab PO Q6HP PRN (Reason: Severe Pain (7-10)) 3 Days Qty: 12 0RF rivaroxaban 15 mg tablet 15 mg PO BID 21 Days Qty: 41 0RF Xarelto 20 mg tablet 20 mg PO HS 30 Days Qty: 30 2RF Rx Instructions: must administer with evening meal Continued paroxetine HCl [Paxil] 20 mg tablet 20 mg PO DAILY bumetanide 1 mg tablet 1 mg PO DIRECTED Patient Comments: 1MG in the AM, 0.5MG in the PM metformin 500 mg tablet 500 mg PO DAILY Patient Comments: TAKE 1 TABLET BY MOUTH EVERY DAY pregabalin 75 mg capsule 75 mg PO HS diltiazem HCl 180 mg capsule,extended release 24hr 180 mg PO DAILY Patient Comments: TAKE 1 CAPSULE BY MOUTH EVERY DAY Lactobacillus acidophilus 0.5 mg (100 million cell) tablet 0.5 mg PO BID potassium chloride 10 mEq tablet extended release 10 meq PO DAILY Discontinued meloxicam 15 mg tablet 15 mg PO DAILY 30 Days Problem Reconciliation Problems Reviewed?: Yes Patient Discharge Instructions ACTIVITY: Continue current activity DIET: continue same diet Patient Instructions: DI for Pulmonary Embolism Providers Primary Care Provider: Ese Barone Admit Provider: Jozef Moss Attending Provider: Jozef Moss
--- NOTE | 2023-07-27 23:28 | CA_ITS ---
APPROVED REPORT EXAM: Comprehensive 2D, Doppler, and color-flow Echocardiogram Acquisition Advisor: Lizeth Davison CRT Ht: 5 ft 6 in Wt: 256lbs BSA: 2.22 BP: 104/86 mmHg Indications: Shortness of Breath, Hyperlipidemia, Hypertension/HDD, bilateral PE's, recent TKR left 2 wks ago M-Mode Dimensions RVDd 3.14 cm (0.9-2.6) LA Diam 3.40 cm (1.9-4.0) LVDd 4.27 cm (3.5-5.7) LVDs 2.54 cm (3.5-5.7) IVSd 1.97 cm (0.6-1.1) PWd 0.89 cm (0.6-1.1) EF (Teich) 71.60% FS 40.50% EDV (Teich) 81.70 mL TAPSE 2.26 (<1.7) ESV (Teich) 23.20 mL LV Diastology E Decel Time 220 (160-240 msec) E/A Ratio 0.74 MED A' 13.20 cm/s LAT A' 11.70 cm/s Aortic Valve AO Peak GR. 5.90 mmHg Mitral Valve MV A Velocity 66.0 (40-130 cm/s) E/A Ratio 0.74 Pulmonary Valve PV Peak Velocity 142.0 (50-150 cm/s) Tricuspid Valve TR P. Velocity 306.00 cm/s RAP Estimate 10.00 mmHg RVSP 47.50 mmHg Left Ventricle The left ventricle is normal size. The left ventricular systolic function is normal. The left ventricular ejection fraction is within the normal range. There is increased LV wall thickness. There is normal LV segmental wall motion. Transmitral Doppler flow pattern suggests impaired LV relaxation. LVEF is 55%. Right Ventricle Right ventricle is mildly dilated. Right ventricle is mildly hypokinetic. Atria The left atrium size is normal. There is no Doppler evidence of interatrial shunt. The right atrium size is normal. Aortic Valve The aortic valve is mildly thickened. There is no aortic valvular stenosis. Trace aortic regurgitation. Mitral Valve The mitral valve leaflets are mildly thickened. Trace mitral regurgitation. No evidence of mitral valve stenosis. Tricuspid Valve The tricuspid valve leaflets are thin and pliable. Moderate tricuspid regurgitation. RVSP is 40-45 mmHg. Pulmonic Valve The pulmonary valve is normal in structure. Trace pulmonic regurgitation. Great Vessels The aortic root is normal in size. The ascending aorta is not well-visualized. IVC is normal in size and collapses >50% with inspiration. Pericardium There is no pericardial effusion. Other Information Study Quality: Fair Conclusion Normal LV systolic function. Mild RV dilation with mild reduction in RV function. Moderate TR. RVSP 40-45 mmHg. Electronically signed by : Crystal Rao MD 07/27/2023 11:49:01
--- NOTE | 2023-07-28 14:28 | CARE MANAGER ---
Called and spoke with patient regarding recent discharge. Patient stated that she has started new medication and has discontinued the meloxicam as prescribed. Patient aware of scheduled f/u appts. No concerns voiced at time of call.
== END 2023-07-27 16:18 | disposition home or self-care (01) ==
LOC: ER 20:57 → 2ND 21:32
PROVIDERS: Internal Medicine; Nurse Practitioner; Nurse Practitioner Family; Admitting Provider Internal Medicine Adolescent Medicine; Emergency Provider Emergency Medicine; PCP Nurse Practitioner Family; Visit Provider Internal Medicine Adolescent Medicine
DX: I26.09 Other pulmonary embolism with acute cor pulmonale (principal); Z96.652 Presence of left artificial knee joint; K63.1 Perforation of intestine (nontraumatic); I10 Essential (primary) hypertension; F41.8 Other specified anxiety disorders; E66.01 Morbid (severe) obesity due to excess calories; Z68.41 Body mass index [BMI] 40.0-44.9, adult; Z79.899 Other long term (current) drug therapy; R06.02 Shortness of breath; C85.94 Non-Hodgkin lymphoma, unspecified, lymph nodes of axilla and upper limb
CPT/HCPCS: 36415; 71046; 71275; 80053; 83735; 83880; 84484; 85025; 85378; 85610; 85730; 93005; 93306; 99291; G0378; Q9967

== ENCOUNTER 2023-07-29 10:17 | Emergency (ER) | payer MEDICARE, SELFPAY ==
[2023-07-29 10:35] VITALS: BP 127/80; PULSE 70; RESP 19; TEMP 37.6; O2SAT 97; BMI 38.5
--- NOTE | 2023-07-29 10:44 | ED_ITS ---
Discharge Plan Disposition Patient Disposition: Home, Self-Care Condition: Good Prescriptions Prescriptions: No Action paroxetine HCl [Paxil] 20 mg tablet 20 mg PO DAILY bumetanide 1 mg tablet 1 mg PO DIRECTED Patient Comments: 1MG in the AM, 0.5MG in the PM metformin 500 mg tablet 500 mg PO DAILY Patient Comments: TAKE 1 TABLET BY MOUTH EVERY DAY pregabalin 75 mg capsule 75 mg PO HS diltiazem HCl 180 mg capsule,extended release 24hr 180 mg PO DAILY Patient Comments: TAKE 1 CAPSULE BY MOUTH EVERY DAY Lactobacillus acidophilus 0.5 mg (100 million cell) tablet 0.5 mg PO BID potassium chloride 10 mEq tablet extended release 10 meq PO DAILY hydrocodone-acetaminophen 5-325 mg Tablet 1 tab PO Q6HP PRN (Reason: Severe Pain (7-10)) 3 Days Qty: 12 0RF rivaroxaban 15 mg tablet 15 mg PO BID 21 Days Qty: 41 0RF Xarelto 20 mg tablet 20 mg PO HS 30 Days Qty: 30 2RF Rx Instructions: must administer with evening meal Referrals Follow up/Referrals: Bethany Davidson APRN [Nurse Practitioner] - See instructions Ese Barone APRN [Primary Care Provider] - See instructions Nadine Mccarthy DPM [Staff Physician] - See instructions (call office and make appointment) Activity Restrictions/Add. Instructions Additional Instructions/Restrictions: Follow up with your Family Doctor as scheduled and inform her of recommendation for for MRI Call and make appointment with Podiatry Rest area as needed for pain Use post op shoe to help with pain and discomfort Clinical Impressions Clinical Impression: Foot pain Qualifiers: Laterality: right Qualified Code(s): M79.671 - Pain in right foot Instructions Patient Instructions: Acetaminophen (Alternative Therapy), DI for Foot Pain Discharge ED Provider: Evelyn Arreola [facility] [place] General Stated complaint: Pain in R ankle Mode of Arrival: Ambulatory Source of Information: Patient and Spouse Limitations: No Limitations Time Seen by Provider: 07/29/23 10:44 Description of Symptoms (Recalled from Triage Doc. by RN): PATIENT C/O PAIN TO RIGHT FOOT THAT STARTED 3 DAYS AGO. SHE STATES PAIN IS PRESENT WITH WALKING AND WEIGHT BEARING. NO KNOWN INJURY HEENT Symptoms (Recalled from RN notes): No Resp Symptoms (Recalled from RN notes): No Skin Symptoms (Recalled from RN notes): No MS Symptoms (Recalled from RN notes): Yes Functional Status (Recalled from RN notes): WNL History of Present Illness Provider Complaint: Patient states that she started about 3 days ago with pain on the inside of her foot towards heel area Denies known injury States pain is only present with weight bearing and and had knee surgery last week but that is doing well and she is having not issues with that Related Data Home Medications Medication Instructions Recorded Confirmed bumetanide 1 mg tablet 1 mg PO DIRECTED Fluid 09/09/19 03/17/23 paroxetine HCl 20 mg tablet (Paxil) 20 mg PO DAILY 09/09/19 07/27/23 metformin 500 mg tablet 500 mg PO DAILY 07/26/23 07/26/23 pregabalin 75 mg capsule 75 mg PO HS 07/26/23 07/26/23 Lactobacillus acidophilus 0.5 mg 0.5 mg PO BID 07/27/23 07/27/23 (100 million cell) tablet diltiazem HCl 180 mg 180 mg PO DAILY 07/27/23 07/27/23 capsule,extended release 24 hr potassium chloride 10 mEq 10 meq PO DAILY 07/27/23 07/27/23 tablet,extended release Previous Rx's Medication Instructions Recorded hydrocodone 5 mg-acetaminophen 325 1 tab PO Q6HP PRN Severe Pain 07/27/23 mg tablet (7-10) 3 days #12 tabs rivaroxaban 15 mg tablet 15 mg PO BID 21 days #41 tabs 07/27/23 rivaroxaban 20 mg tablet (Xarelto) 20 mg PO HS 30 days #30 tabs 07/27/23 Allergies Allergy/AdvReac Type Severity Reaction Status Date / Time Penicillins [PENICILLINS] Allergy Unknown Verified 03/17/23 08:25 furosemide [From Lasix] Allergy Verified 03/17/23 08:25 losartan Allergy Verified 03/17/23 08:25 morphine Allergy Verified 07/29/23 10:44 Sulfa (Sulfonamide Allergy Verified 07/26/23 23:50 Antibiotics) Worker's Comp Is this a Worker's Comp case?: No [facility] Disclaimer: The information contained in this section may have been updated after the patient was seen, as this information can be updated by other users. Medical History (Updated 07/29/23 @ 12:02 by Kayla Arreola, [employer]) Pre-diabetes Pulmonary embolism Hyperlipidemia HTN (hypertension) Pelvic abscess Perforation bowel Dizziness Surgical History (Updated 07/29/23 @ 10:45 by Madeleine Baez RN) History of tonsillectomy History of cholecystectomy History of appendectomy History of knee surgery No significant past surgical history Family History Other No significant family history Social History Smoking Status: Never smoker second hand exposure: No alcohol intake: never substance use type: denies use current occupational status: other Travel in the last 8 weeks: None household members: family housing: house ROS Obtained: Yes All systems reviewed & no additional complaints except as documented and Yes Systems reviewed as appropriate & no additional complaints except as documented Constitutional Constitutional: Reports system reviewed and no additional complaints, except as documented and Reports as per HPI ENT Ears, Nose, Mouth, and Throat: Reports system reviewed and no additional complaints, except as documented and Reports as per HPI Cardiovascular Cardiovascular: Reports system reviewed and no additional complaints, except as documented and Reports as per HPI Respiratory Respiratory: Reports system reviewed and no additional complaints, except as documented and Reports as per HPI Gastrointestinal Gastrointestingal: Reports system reviewed and no additional complaints, except as documented and as per HPI Musculoskeletal Musculoskeletal: Reports system reviewed and no additional complaints, except as documented, Reports as per HPI and Reports other (Pain in right foot with weight bearing denies known injury) Physical Exam General General appearance: alert and in no apparent distress ENT ENT exam: Present mucous membranes moist Respiratory Respiratory exam: Present normal lung sounds bilaterally; Absent respiratory distress or wheezes Cardiovascular Cardiovascular exam: Present regular rate, normal rhythm and normal heart sounds Expanded Lower Extremity Exam Right: Leg image: [address] from recently knee replacement surgery, denies pain, no redness or swelling noted Ankle image: 2 1. reports pain with weight bearing, no swelling no bruising noted Top foot image: 2 1. pain in side of foot with weight bearing no swelling no redness, no bruising noted + pedal pulse Gait: not tested/not observed Neurological Exam Neurological exam: Present alert and oriented X3 Medical Decision Making Giovanni Inquiry Pt receiving controlled substance: No Giovanni was queried for this patient: No Vital Signs: 07/29/23 10:35 Temperature 99.6 F Temperature Source Oral Pulse Rate [Right Brachial] 70 Respiratory Rate 19 Blood Pressure [Right Arm] 127/80 Blood Pressure Mean [Right Arm] 95 Blood Pressure Source [Right Arm] Automatic Cuff Blood Pressure Position [Right Arm] Sitting 02 Sat by Pulse Oximetry 97 Oxygen Delivery Method Room Air Radiology Data #1: Image(s): Foot/Toes Image Reviewed: Yes I have reviewed radiologist's interpretation IMPRESSION: Progression of erosive changes at the 2nd and 3rd metatarsal base with indistinctness of the 2nd and 3rd tarsometatarsal articulations. Additional workup with MRI recommended. Medical Decision Narrative: Patient initially wanted to discuss walking boot but due to recently having knee replacement on her left knee concern for falling, will place in post op shoe an patient has appointment on Monday with her PCP and educated to inform her of recommendation for MRI of foot and follow up with Podiatry
--- NOTE | 2023-07-29 10:58 | XR_ITS ---
PROCEDURE INFORMATION: Exam: XR Right Foot Exam date and time: 07/29/2023 10:54 AM Age: 73 years old Clinical indication: Pain; Foot; Right; Additional info: Foot pain TECHNIQUE: Imaging protocol: Radiologic exam of the right foot. Views: 3 or more views. COMPARISON: CR XR FOOT RT MIN 3V 08/04/2021 12:17 PM FINDINGS: Bones/joints: Progression of erosive changes at the 2nd and 3rd metatarsal base with indistinctness of the 2nd and 3rd tarsometatarsal articulations. Additional workup with MRI recommended. No acute fracture or dislocation. Soft tissues: Normal. IMPRESSION: Progression of erosive changes at the 2nd and 3rd metatarsal base with indistinctness of the 2nd and 3rd tarsometatarsal articulations. Additional workup with MRI recommended.
[2023-07-29 12:00] VITALS: BP 127/80; PULSE 70; RESP 19; TEMP 37.6; O2SAT 97
--- NOTE | 2023-07-29 12:05 | PC.NURSE ---
POST-OP SHOE APPLIED TO RIGHT FOOT
== END 2023-07-29 12:04 | disposition home or self-care (01) ==
PROVIDERS: Emergency Provider Nurse Practitioner; PCP Nurse Practitioner Family
DX: M79.671 Pain in right foot (principal)
CPT/HCPCS: 73630; 99212; 99214; G0463

== ENCOUNTER 2023-09-25 08:45 | Emergency (ER) | payer MEDICARE, SELFPAY ==
[2023-09-25 08:55] VITALS: BP 173/93; PULSE 79; RESP 21; TEMP 36.9; O2SAT 95; BMI 39.9
[2023-09-25 09:14] LABS: Apearance,Urine Clear (Clear); Color,Urine Yellow (Yellow); Glucose,Urine (UA) Negative (Negative); PH,Urine 5.5 (5.0-8.5); Protein,Urine Trace (Negative); Specific Gravity, Urine 1.025 (1.005-1.030)
[2023-09-25 09:15] LABS: Bilirubin,Urine Negative (Negative); Blood, Urine 1+ (Negative); Ketones,Urine Negative (Negative); UTC Leukocyte Esterase,Urine Negative (Negative); UTC Nitrate,Urine Negative (Negative); Urobilinogen,Urine 0.2 EU/dl (0.2)
--- NOTE | 2023-09-25 09:19 | ED_ITS ---
Discharge Plan Disposition Patient Disposition: Home, Self-Care Condition: Good Prescriptions Prescriptions: No Action paroxetine HCl [Paxil] 20 mg tablet 20 mg PO DAILY famotidine 40 mg tablet 40 mg PO DAILY Patient Comments: TAKE ONE TABLET BY MOUTH EVERY DAY bumetanide 1 mg tablet 1 mg PO DIRECTED Patient Comments: 1MG in the AM, 0.5MG in the PM metformin 500 mg tablet 500 mg PO DAILY Patient Comments: TAKE 1 TABLET BY MOUTH EVERY DAY diltiazem HCl 180 mg capsule,extended release 24hr 180 mg PO DAILY Patient Comments: TAKE 1 CAPSULE BY MOUTH EVERY DAY potassium chloride 10 mEq tablet extended release 10 meq PO DAILY Xarelto 20 mg tablet 20 mg PO HS 30 Days Qty: 30 2RF Rx Instructions: must administer with evening meal meloxicam [Mobic] 7.5 mg Tablet 7.5 mg PO DAILY Ozempic 0.25 mg or 0.5 mg (2 mg/3 mL) pen injector 0.25 mg SQ WEEKLY Patient Comments: ADMINISTER 0.25MG UNDER THE SKIN ONCE WEEKLY Referrals Follow up/Referrals: Ese Barone APRN [Primary Care Provider] - See instructions Activity Restrictions/Add. Instructions Additional Instructions/Restrictions: GO straight to Dr Office as discussed Further care per Family Doctor as advised Clinical Impressions Clinical Impression: Left groin pain Discharge ED Provider: Evelyn Arreola [facility] General Stated complaint: Pain L lower groin Mode of Arrival: Ambulatory Source of Information: Patient Limitations: No Limitations Time Seen by Provider: 09/25/23 09:19 Description of Symptoms (Recalled from Triage Doc. by RN): PATIENT C/O PAIN TO LEFT INGUINAL AREA X 3 WEEKS. PATIENT REPORTS BEING TREATED FOR UTI RECENTLY HEENT Symptoms (Recalled from RN notes): No Resp Symptoms (Recalled from RN notes): No Skin Symptoms (Recalled from RN notes): No MS Symptoms (Recalled from RN notes): No Functional Status (Recalled from RN notes): WNL History of Present Illness Provider Complaint: Patient states that for the last 3 weeks in her left inguinal area States that she does have hx of hernia States that she has been having the pain on and off for about a month and last time she had this pain and was checked she had a UTI States that the pain is worse when she raises her leg or bends certain ways States that she wanted to get her urine rechecked and see if she could get a CT to check the area States that she is not having any pain at this time Related Data Home Medications Medication Instructions Recorded Confirmed bumetanide 1 mg tablet 1 mg PO DIRECTED Fluid 09/09/19 09/25/23 paroxetine HCl 20 mg tablet (Paxil) 20 mg PO DAILY 09/09/19 09/25/23 metformin 500 mg tablet 500 mg PO DAILY 07/26/23 09/25/23 diltiazem HCl 180 mg 180 mg PO DAILY 07/27/23 09/25/23 capsule,extended release 24 hr potassium chloride 10 mEq 10 meq PO DAILY 07/27/23 09/25/23 tablet,extended release famotidine 40 mg tablet 40 mg PO DAILY 07/31/23 09/25/23 meloxicam 7.5 mg tablet 7.5 mg PO DAILY 09/25/23 09/25/23 semaglutide 0.25 mg or 0.5 mg (2 0.25 mg SQ WEEKLY 09/25/23 09/25/23 mg/3 mL) subcutaneous pen injector ([employer]) Previous Rx's Medication Instructions Recorded rivaroxaban 20 mg tablet (Xarelto) 20 mg PO HS 30 days #30 tabs 07/27/23 Allergies Allergy/AdvReac Type Severity Reaction Status Date / Time Penicillins [PENICILLINS] Allergy Unknown Verified 08/15/23 09:34 furosemide [From Lasix] Allergy Verified 08/15/23 09:34 losartan Allergy Verified 08/15/23 09:34 morphine Allergy Verified 08/15/23 09:34 Sulfa (Sulfonamide Allergy Verified 08/15/23 09:34 Antibiotics) Worker's Comp Is this a Worker's Comp case?: No [facility] Disclaimer: The information contained in this section may have been updated after the patient was seen, as this information can be updated by other users. Medical History Pre-diabetes Pulmonary embolism Hyperlipidemia HTN (hypertension) Pelvic abscess Perforation bowel Dizziness Surgical History History of tonsillectomy History of cholecystectomy History of appendectomy History of knee surgery No significant past surgical history Family History Other No significant family history Social History Smoking Status: Never smoker second hand exposure: No alcohol intake: never substance use type: denies use current occupational status: other Travel in the last 8 weeks: None household members: family housing: house ROS Obtained: Yes All systems reviewed & no additional complaints except as documented and Yes Systems reviewed as appropriate & no additional complaints except as documented Constitutional Constitutional: Reports system reviewed and no additional complaints, except as documented and Reports as per HPI Eyes Eyes: Reports system reviewed and no additional complaints, except as documented and Reports as per HPI ENT Ears, Nose, Mouth, and Throat: Reports system reviewed and no additional complaints, except as documented and Reports as per HPI Cardiovascular Cardiovascular: Reports system reviewed and no additional complaints, except as documented and Reports as per HPI Respiratory Respiratory: Reports system reviewed and no additional complaints, except as documented and Reports as per HPI Gastrointestinal Gastrointestingal: Reports system reviewed and no additional complaints, except as documented and as per HPI; Denies abdominal pain, cramping, diarrhea, hematemesis, hematochezia, loose stools, melena, nausea or vomiting Genitourinary Female Genitourinary: Reports system reviewed and no additional complaints, except as documented and Reports as per HPI Comments: Pain in left groin area worse with movement and raising of her leg Physical Exam General General appearance: alert and in no apparent distress ENT ENT exam: Present mucous membranes moist Respiratory Respiratory exam: Present normal lung sounds bilaterally; Absent respiratory distress or wheezes Cardiovascular Cardiovascular exam: Present regular rate, normal rhythm and normal heart sounds Abdominal Exam Abdominal exam: Present soft and normal bowel sounds; Absent distention, tenderness, guarding or rebound Comment: Patient reports pain on and off for about 3+ weeks in her left inguinal area not hurting at this time denies tenderness with palpation Neurological Exam Neurological exam: Present alert, oriented X3 and normal gait Medical Decision Making Giovanni Inquiry Pt receiving controlled substance: No Giovanni was queried for this patient: No Vital Signs: 09/25/23 08:55 Temperature 98.5 F Temperature Source Oral Pulse Rate [Left Brachial] 79 Respiratory Rate 21 Blood Pressure [Left Arm] 173/93 H Blood Pressure Mean [Left Arm] 119 Blood Pressure Source [Left Arm] Automatic Cuff Blood Pressure Position [Left Arm] Sitting 02 Sat by Pulse Oximetry 95 Oxygen Delivery Method Room Air Lab Data Lab Results 09/25/23 09:13: Urine Color Yellow, Urine Appearance Clear, Urine pH 5.5, Ur Specific [place] 1.025, Urine Protein Trace, Urine Glucose (UA) Negative, Urine Ketones Negative, Urine Blood 1+, Urine Nitrate Negative, Urine Bilirubin Negative, Urine Urobilinogen 0.2, Ur Leukocyte Esterase Negative Medical Decision Narrative: Patient states that she has been having pain in her left inguinal area for about 3+ weeks that has been intermittent and worse at times States that she was concerned since she has had several hernia revisions on her abdomen and had called her PCP office and they wasnt able to get her in until 1130 and she came in here thinking it would be faster to get her urine checked and requesting to get a CT patient informed that unable to order CT in the [facility] however could send her to the ED for furhter work up and evaluation and CT if warranted and patient advised that she wasnt hurting right now and did not want to go to the ED called PCP and they had cancelation and advised she can come on up there and patient agreed to that
[2023-09-25 09:26] VITALS: BP 173/93; PULSE 79; RESP 21; TEMP 36.9; O2SAT 95
== END 2023-09-25 09:30 | disposition home or self-care (01) ==
PROVIDERS: Emergency Provider Nurse Practitioner; PCP Nurse Practitioner Family
DX: R10.32 Left lower quadrant pain (principal)
CPT/HCPCS: 81003

== ENCOUNTER 2023-09-25 13:24 | Outpatient (CLI) | payer MEDICARE, SELFPAY ==
--- NOTE | 2023-09-25 13:46 | CT_ITS ---
FINAL REPORT CLINICAL HISTORY: ABD WALL HERNIA, hx perforated bowel, llq pain COMPARISON: 03/19/2022 FINDINGS: CT OF THE ABDOMEN AND PELVIS WITH CONTRAST Axial CT images of the abdomen and pelvis were obtained after the administration of IV contrast. Coronal reformatted images were also obtained and reviewed.This study was performed with techniques to keep radiation doses as low as reasonably achievable (ALARA). Individualized dose reduction techniques using automated exposure control or adjustment of mA and/or kV according to the patient''s size were employed. Abdomen: There is mild atelectasis or scarring in the lung bases.. The heart is normal in size. The liver has an unremarkable appearance, without evidence of mass or biliary ductal dilatation. The patient is status post cholecystectomy. There is mild biliary ductal dilatation. There is a 10 mm low-attenuation mass in the spleen favored to represent a cyst. No adrenal mass is present. The pancreas has an unremarkable appearance. There is a 9 mm mass in the anterior right kidney which does not appear to be a simple cyst. This likely represents complex cyst versus renal neoplasm. The aorta is normal in caliber. There are mild vascular calcifications. There is no free fluid or adenopathy. There is an infraumbilical abdominal wall hernia containing fat and nonobstructed bowel loops. The hernia orifice measures 6.3 cm in transverse dimension and the sac measures 10.9 cm in transverse dimension. This is not significantly changed from the prior CT scan. Pelvis: The appendix is not visualized and there are no secondary signs of appendicitis. There are postoperative changes in the rectosigmoid colon. The urinary bladder is unremarkable. No inflammatory process is seen. There is no evidence of mass or adenopathy. There is no evidence of bowel obstruction. IMPRESSION: 9 mm anterior right kidney mass does not appear to be a simple cyst and likely represents complex cyst versus renal neoplasm. This could be further evaluated with renal mass protocol CT or MRI. Infraumbilical abdominal wall hernia containing fat nonobstructive bowel loops, not significantly changed from prior. Reviewed, Interpreted and Dictated by Richar Waters III, MD Transcribed by Tricia Fritz Authenticated and [facility]
[2023-09-25 14:10] LABS: Blood Urea Nitrogen 24 mg/dl (7-17); Estimated Glomerular Filt Rate 71 ml/min (>60); GFR (African American) 85 ML/MIN (>60)
[2023-09-25] MEDS: SODIUM CHLORIDE 0.9% 10ML SYR (RAD ONLY) 10 ML IV (14:41)
[2023-09-25] MEDS: IOPAMIDOL-370 (76%);100ML BOTTLE 75 ML IV (14:41)
== END 2023-09-25 23:59 | disposition home or self-care (01) ==
LOC: RAD 13:25
PROVIDERS: PCP Nurse Practitioner Family; Visit Provider Nurse Practitioner Family
DX: R10.32 Left lower quadrant pain (principal); K43.9 Ventral hernia without obstruction or gangrene; Z87.19 Personal history of other diseases of the digestive system
CPT/HCPCS: 36415; 74177; 81003; 82565; 84520; 99212; G0463; Q9967

== ENCOUNTER 2023-10-02 11:47 | Outpatient (CLI) | payer MEDICARE, SELFPAY ==
[2023-10-02 12:12] LABS: Basophils # 0.1 K/mm3 (0-0.2); Basophils % 0.5 % (0.1-2.0); Eosinophils # 0.3 K/mm3 (0.0-0.4); Eosinophils % 2.8 % (0.1-12.0); Hematocrit 42.2 % (37.0-47.0); Hemoglobin 13.6 g/dL (12.2-16.2); Lymphocytes # 3.4 K/mm3 (0.7-4.5); Lymphocytes % 38.7 % (10-50); Mean Corpuscular HGB Conc 32.2 g/dL (31.8-35.4); Mean Corpuscular Hemoglobin 29.7 pg (27.0-31.2); Mean Corpuscular Volume 92.5 fl (81-99); Mean Platelet Volume 8.2 fl (7.4-10.4); Monocytes # 0.5 K/mm3 (0.1-1.0); Monocytes % 6.1 % (1.7-9.3); Neutrophils # 4.6 K/mm3 (1.8-7.8); Neutrophils % 51.9 % (37.0-80.0); Platelet Count 272 K/mm3 (142-424); Red Blood Count 4.56 M/mm3 (4.20-5.40); Red Cell Distribution Width 15.2 % (11.5-17.5); White Blood Count 8.9 K/mm3 (4.8-10.8)
[2023-10-02 12:45] LABS: Alanine Aminotransferase 21 U/L (12-78); Albumin Level 3.9 g/dl (3.5-5.0); Alkaline Phosphatase 117 U/L (38-126); Anion Gap 7.5 mEq/L (5-15); Aspartate Amino Transferase 26 U/L (14-36); Bilirubin,Indirect 0.4 mg/dL (0.0-0.9); Bilirubin,Total 0.4 mg/dl (0.2-1.3); Bilirubin,Unconjugated 0.4 mg/dL (0.0-1.1); Blood Urea Nitrogen 22 mg/dl (7-17); Calcium 9.8 mg/dl (8.4-10.2); Carbon Dioxide 30 mmol/L (22.0-30.0); Chloride 107 mmol/L (98-107); Chol/HDL Ratio 4.7 (1-3.5); Cholesterol 219 mg/dl (140-200); Estimated Glomerular Filt Rate 82 ml/min (>60); GFR (African American) 100 ML/MIN (>60); Glucose 108 mg/dl (74-100); HDL Cholesterol 47 mg/dl (40-60); Potassium 4.5 mmoL/L (3.5-5.1); Sodium 140 mmol/L (136-145); Total Protein,Serum 6.5 g/dl (6.3-8.2); Triglycerides 187 mg/dl (30-150); VLDL Cholesterol 37 mg/dL (0-40)
--- NOTE | 2023-10-02 12:55 | CT_ITS ---
FINAL REPORT TECHNIQUE: Postcontrast axial images of the chest were performed in a CTA protocol. This study was performed with techniques to keep radiation doses as low as reasonably achievable, (ALARA). Individualized dose reduction technique using automated exposure control or adjustment of mA and/or kV according to the patient's size were employed. CLINICAL HISTORY: PE COMPARISON: 07/26/2023 FINDINGS: The heart is normal in size. No adenopathy is identified. No pleural or pericardial effusion is identified. The thoracic aorta is normal in caliber with no focal aneurysm or dissection identified. Previously seen bilateral pulmonary emboli have resolved. There is a left upper lobe, 3 mm pulmonary nodule seen on image 43 which is unchanged. Lungs are otherwise clear. Limited imaging of the upper abdomen demonstrates a small hypodense lesion in the spleen, stable. No acute osseous changes are identified. IMPRESSION: No evidence for PE on this exam. No acute abnormality of the chest. Stable, tiny left upper lobe pulmonary nodule. Reviewed, Interpreted and Dictated by Toña Jeffries MD Transcribed by Sugar Curran Authenticated and [facility]
[2023-10-02 12:56] LABS: Direct LDL Cholesterol 129.84 mg/dL (100-129)
[2023-10-02 13:14] LABS: Thyroid Stimulating Hormone 3.17 uIU/mL (0.465-4.68)
[2023-10-02] MEDS: IOPAMIDOL-370 (76%);100ML BOTTLE 75 ML IV (13:32)
[2023-10-02] MEDS: 0.9 % SODIUM CHLORIDE 50 ML VIAL IV (13:32)
[2023-10-02] MEDS: SODIUM CHLORIDE 0.9% 10ML SYR (RAD ONLY) 10 ML IV (13:32)
== END 2023-10-02 23:59 | disposition home or self-care (01) ==
PROVIDERS: PCP Nurse Practitioner Family; Visit Provider Nurse Practitioner
DX: I26.99 Other pulmonary embolism without acute cor pulmonale (principal); I10 Essential (primary) hypertension; R06.00 Dyspnea, unspecified; R00.2 Palpitations
CPT/HCPCS: 36415; 71275; 80048; 80061; 80076; 84439; 84443; 85025; 93225; 93227; Q9967

== ENCOUNTER 2023-10-04 10:44 | Outpatient (CLI) | payer MEDICARE, SELFPAY | END 2023-10-04 23:59 | disposition home or self-care (01) | LOC: RT 10:46 | PROVIDERS: PCP Nurse Practitioner Family; Visit Provider Internal Medicine | DX: R00.2 Palpitations (principal); R06.00 Dyspnea, unspecified | CPT/HCPCS: 93270 ==

== ENCOUNTER 2023-10-20 06:14 | Outpatient (CLI) | payer MEDICARE, SELFPAY ==
--- NOTE | 2023-10-20 | CA_ITS ---
APPROVED REPORT Exam: Pharmacologic Technologist: Kim Isaac, Ht: 5 ft 7 in Wt: 254 lbs BSA: 2.24 m2 HR: 66 bpm BP: 181/81 mmHg Rhythm: NSR, NS ST ABN INFERIORLY, LOW VOLTAGE QRS Indications: SOA Medical History Medical History: HTN, Hyperlipidemia, , Diabetes Medications: Metformin,,,,, XaRELTO,,,,, MeLOXICAM,,,,, Famotidine,,,,, PaXIL,,,,, DilTiazem,,,,, BuMETANIDE,,,,, Potassium,,,,, Ozempic,,,,, Allergies: PENICILLINS, SULFA, MORPHINE, LOSARTAN, FUROSEMIDE Cardiac Risk Factors: HTN, Hyperlipidemia, Diabetes Stress Test Details Test: LEXISCAN HR Resting HR: 67 bpm Max Heart Rate (APMHR): 148 bpm Max HR Achieved: 91 bpm Target HR (85% APMHR): 126 bpm % of APMHR: 61 Recovery HR: 73 bpm BP Resting BP: 181/81 mmHg Max BP: 193/70 mmHg Recovery BP: 182.0/92.0 mmHg ECG Resting ECG: Normal sinus rhythm, nonspecific ST changes, low voltage QRS Arrhythmia: None Clinical Exercise duration: 04:01 min Highest Stage Achieved: Exercise capacity: 1.0 METs Stress ECG Conclusion PT HAD MILD SOA, STOMACH AND HEAD DISCOMFORT NO SIGNIFICANT ST CHANGES UNREMARKABLE LEXISCAN STRESS POORLY CONTROLLED HTN Test Summary REST 06:47 . . 67 . 181/ 81 . . Stage 1 01:00 . . 88 . . . . Stage 2 01:00 . . 87 . . . . Stage 3 01:00 . . 79 . . . . Stage 4 01:00 . . 77 . 180/ 79 . . Stage 4 01:01 . . 77 . 180/ 79 . Stop exercise at 04:01 RECOVERY 01:00 . . 80 . 183/ 72 . . RECOVERY 02:00 . . 72 . 183/ 72 . . RECOVERY 03:00 . . 74 . 193/ 70 . . RECOVERY 04:00 . . 72 . 193/ 70 . . RECOVERY 05:00 . . 73 . 150/ 76 . . RECOVERY 06:00 . . 73 . 182/ 92 . . RECOVERY 06:18 . . 71 . 182/ 92 . . Electronically signed by : Crystal Rao MD 10/22/2023 22:54:43
--- NOTE | 2023-10-20 06:18 | NM_ITS ---
APPROVED REPORT Exam: Nuclear Stress Test Indication: Chest pain, SOB, Palpitations, Fatigue, HTN, DM, High cholesterol, Family history Patient Location: Outpatient Stress Tech: Kim Isaac [place] Tech:Malaika Monzon, ARRT, RT (R)(N) Ht: 5 ft 7 in Wt: 250 lbs Bra Size: 42D HR: 67 bpm BP: 181/81 mmHg BSA: 2.22 m2 TID: 1.37 BMI: 39.1 History: Chest pain, SOB, Palpitations, Fatigue, HTN, DM, High cholesterol, Family history Procedure: Patient received 0.4 mg of intravenous Lexiscan, resting heart rate 67 bpm, resting blood pressure 181/81 mmHg, with Lexiscan maximum heart rate achieved was 91 bpm which is % of the maximum predicted heart rate and blood pressure was 193/70 mmHg. With Lexiscan, patient denied any complaint of chest pain. Cardiac Stress and Resting SPECT Images: Cardiac Stress and Resting SPECT images were obtained using technetium 99m Myoview 30.5 mCi stress and 10.79 mCi at rest. Resting and stress imaging in supine and prone positions demonstrate no evidence of fixed or reversible perfusion defects. There is increase in transient ischemic dilatation ratio (TID 1.37), suggestive of possible multivessel disease or balanced ischemia. Gated imaging demonstrates normal global and regional LV systolic function. LVEF is calculated at 73%. Conclusion: No evidence of fixed or reversible perfusion defects. There is increase in transient ischemic dilatation ratio (TID 1.37), suggestive of possible multivessel disease or balanced ischemia. Gated imaging demonstrates normal global and regional LV systolic function. LVEF is calculated at 73%. Electronically signed by : Crystal Rao MD 10/22/2023 22:56:21
[2023-10-20] MEDS: SODIUM CHLORIDE 0.9% 10ML SYR (RAD ONLY) 10 ML IV ×2 (08:12)
[2023-10-20] MEDS: REGADENOSON 0.4MG/5ML SYRINGE 0.4 MG IV (08:12)
[2023-10-20] MEDS: ISOTOPE MYOVIEW (PER STUDY) 1 DOSE IV (08:12)
== END 2023-10-20 23:59 | disposition home or self-care (01) ==
LOC: RAD 06:15
PROVIDERS: PCP Nurse Practitioner Family; Visit Provider Nurse Practitioner
DX: R06.00 Dyspnea, unspecified (principal); R07.9 Chest pain, unspecified
CPT/HCPCS: 78452; 93017; 93018; A9502; J2785

== ENCOUNTER 2023-11-15 08:24 | Day surgery (SDC) | payer MEDICARE, SELFPAY ==
[2023-11-15] VITALS (12 sets, daily range): BP systolic 166–213; BP diastolic 81–98; PULSE 56–94; RESP 16–18; TEMP 36.8–36.9; O2SAT 90–98; BMI 40.2
--- NOTE | 2023-11-15 07:05 | IR_ITS ---
APPROVED REPORT Patient Location: Outpatient PROCEDURES Left heart catheterization Left ventriculogram Selective coronary angiogram INDICATION Abnormal Myoview, Angina pectoris, Informed consent was obtained prior to the procedure. COMPLICATIONS NONE Estimated Blood Loss: LESS THAN 10 ML TECHNIQUE One percent lidocaine used to anesthetize the right anterior aspect of the wrist. The right radial artery was accessed via the Seldinger technique. A 6 Fijian sheath was placed in the right radial artery. 2.5 mg of Verapamil, 800 mcg of nitroglycerin, 1mg Lidocaine and 5000 U Heparin were given through the arterial sheath. The papa catheter was also used to perform left heart catheterization, left ventriculogram and selective coronary angiogram. At the end of the procedure the sheath was removed good hemostasis was achieved using Traclet band, patient was transferred to the postop holding area in stable condition. ANGIOGRAPHIC RESULTS The left main artery Normal The left anterior descending artery Normal The circumflex artery Normal The right coronary artery Normal The CANTRELL ventriculogram reveals Hyperdynamic at 75% The left ventricular end-diastolic pressure 20 mmHg IMPRESSION Normal coronary arteries Hyperdynamic ventricle with elevated LVEDP PLAN 1. Medical management Electronically signed by : Augustin aLm MD 11/16/2023 14:31:34
[2023-11-15 09:03] LABS: Basophils # 0.1 K/mm3 (0-0.2); Basophils % 1.2 % (0.1-2.0); Eosinophils # 0.3 K/mm3 (0.0-0.4); Eosinophils % 5.2 % (0.1-12.0); Hematocrit 42.5 % (37.0-47.0); Hemoglobin 13.4 g/dL (12.2-16.2); Lymphocytes # 2.4 K/mm3 (0.7-4.5); Lymphocytes % 36.2 % (10-50); Mean Corpuscular HGB Conc 31.6 g/dL (31.8-35.4); Mean Corpuscular Hemoglobin 28.7 pg (27.0-31.2); Mean Platelet Volume 7.8 fl (7.4-10.4); Monocytes # 0.4 K/mm3 (0.1-1.0); Monocytes % 6.2 % (1.7-9.3); Neutrophils # 3.4 K/mm3 (1.8-7.8); Neutrophils % 51.2 % (37.0-80.0); Platelet Count 235 K/mm3 (142-424); Red Blood Count 4.67 M/mm3 (4.20-5.40); Red Cell Distribution Width 15.5 % (11.5-17.5); White Blood Count 6.6 K/mm3 (4.8-10.8)
[2023-11-15 09:04] LABS: Chloride 107 mmol/L (98-107); Potassium 4.3 mmoL/L (3.5-5.1); Sodium 142 mmol/L (136-145)
[2023-11-15 09:07] LABS: Anion Gap 8.3 mEq/L (5-15); Blood Urea Nitrogen 18 mg/dl (7-17); Calcium 9.2 mg/dl (8.4-10.2); Carbon Dioxide 31 mmol/L (22.0-30.0); Creatinine Clearance Estimated 94 mL/min (50-200); Estimated Glomerular Filt Rate 71 ml/min (>60); GFR (African American) 85 ML/MIN (>60); Glucose 135 mg/dl (74-100)
[2023-11-15] MEDS: diphenhydrAMINE 50MG/ML VIAL 50 MG IV (09:52)
[2023-11-15] MEDS: LIDOCAINE 1% 10ML MDV 20 ML IJ (09:52)
[2023-11-15] MEDS: HEPARIN 1,000 UNITS/500ML NS (CATH LAB) 3000 UNIT IV (09:52)
[2023-11-15] MEDS: 0.9 % SODIUM CHLORIDE 500 ML 25 ML IV (09:52)
[2023-11-15] MEDS: NITROGLYCERIN 800MCG/8ML SYR (CATH LAB) 800 MCG IA (09:53)
[2023-11-15] MEDS: VERAPAMIL 2.5MG/ML 2ML VIAL 2.5 MG IV (09:53)
[2023-11-15] MEDS: HEPARIN 1,000 UNITS/ML 10ML VIAL (CATH LAB) 10000 UNIT IV (09:53)
[2023-11-15] MEDS: FENTANYL 100MCG/2ML VIAL 50 MCG IV (10:20)
[2023-11-15] MEDS: MIDAZOLAM HCL 1MG/1ML 5ML VIAL 1 MG IV (10:20)
[2023-11-15] MEDS: IOPAMIDOL-370 (76%);100ML BOTTLE 40 ML IV (12:23)
== END 2023-11-15 13:26 | disposition home or self-care (01) ==
PROVIDERS: PCP Nurse Practitioner Family; Visit Provider Internal Medicine
DX: R00.2 Palpitations (principal); R06.09 Other forms of dyspnea; I26.09 Other pulmonary embolism with acute cor pulmonale; K63.1 Perforation of intestine (nontraumatic); I10 Essential (primary) hypertension; I27.20 Pulmonary hypertension, unspecified; E78.5 Hyperlipidemia, unspecified; R94.39 Abnormal result of other cardiovascular function study; I20.89 Other forms of angina pectoris; Z79.899 Other long term (current) drug therapy; E11.9 Type 2 diabetes mellitus without complications; Z79.84 Long term (current) use of oral hypoglycemic drugs
CPT/HCPCS: 80048; 85025; 93458; 99152; C1725; C1769; J1200; J1644; J2250; J3010; Q9967

== ENCOUNTER 2024-01-08 16:40 | Emergency (ER) | payer MEDICARE, SELFPAY ==
--- NOTE | 2024-01-08 16:41 | XR_ITS ---
PROCEDURE INFORMATION: Exam: XR Chest Exam date and time: 01/08/2024 4:47 PM Age: 73 years old Clinical indication: Shortness of breath; Additional info: SOB TECHNIQUE: Imaging protocol: Radiologic exam of the chest. Views: 2 views. COMPARISON: CT ANGIO CHEST PE PROTOCOL 10/02/2023 1:16 PM FINDINGS: Lungs: Unremarkable. No consolidation. Pleural spaces: Unremarkable. No pleural effusion. No pneumothorax. Heart/Mediastinum: Unremarkable. No cardiomegaly. Bones/joints: Unremarkable. IMPRESSION: No acute findings.
[2024-01-08 18:00] VITALS: BP 139/64; PULSE 73; RESP 20; TEMP 37.1; O2SAT 96; BMI 38.5
--- NOTE | 2024-01-08 18:21 | ED_ITS ---
Discharge Plan Disposition Patient Disposition: Home, Self-Care Condition: Good Prescriptions Prescriptions: New azithromycin [Zithromax Z-Rene] 250 mg tablet See Rx Instructions .ROUTE .COMPLEX 5 Days Qty: 6 0RF Rx Instructions: For 250 mg dose pack: take 500 mg today (day 1), then 250 mg for 4 days (days 2-5) No Action potassium chloride 10 mEq capsule, extended release 10 meq PO DAILY meloxicam 15 mg tablet 15 mg PO DAILY Patient Comments: TAKE 1 TABLET BY MOUTH DAILY NEEDED FOR ARTHRITIS PAIN lisinopril 20 mg tablet 20 mg PO DAILY Patient Comments: TAKE 1 TABLET BY MOUTH DAILY famotidine 40 mg tablet 40 mg PO DAILY Patient Comments: TAKE 1 TABLET BY MOUTH DAILY paroxetine HCl 20 mg tablet 20 mg PO DAILY Patient Comments: TAKE 1 TABLET BY MOUTH DAILY bumetanide 1 mg tablet 1.5 mg PO DAILY Patient Comments: TAKE 1 AND 1/2 TABLETS BY MOUTH EVERY DAY hydrochlorothiazide 25 mg tablet 25 mg PO DAILY Patient Comments: TAKE 1 TABLET BY MOUTH DAILY Xarelto 20 mg tablet 20 mg PO DAILY Patient Comments: TAKE ONE TABLET BY MOUTH IN THE EVENING WITH MEAL Repatha SureClick 140 mg/mL pen injector 140 mg SQ WEEKLY Patient Comments: ADMINISTER 1 ML UNDER THE SKIN EVERY 2 WEEKS Ozempic 0.25 mg or 0.5 mg (2 mg/3 mL) pen injector 0.25 mg SQ WEEKLY Patient Comments: INJECT 0.25MG ONCE A WEEK X 4 WEEKS THEN INCREASE TO 0.5MG ONCE A WEEK Referrals Follow up/Referrals: Ese Barone APRN [Primary Care Provider] - See instructions Activity Restrictions/Add. Instructions Additional Instructions/Restrictions: Take medication as prescribed Follow up with your Family Doctor if no improvement or any worsening of symptoms Straight to ER if any life threatening symptoms Clinical Impressions Clinical Impression: Acute bacterial bronchitis Instructions Patient Instructions: Acute Bronchitis, Azithromycin Print Language Print Language: Romanian Discharge ED Provider: Evelyn Arreola [facility] General Stated complaint: wheezing, SOA Mode of Arrival: Ambulatory Source of Information: Patient Limitations: No Limitations Time Seen by Provider: 01/08/24 18:21 Description of Symptoms (Recalled from Triage Doc. by RN): PATIENT C/O SOA, WHEEZING, AND COUGH THAT STARTED APPROX 3 WEEKS AGO HEENT Symptoms (Recalled from RN notes): No Resp Symptoms (Recalled from RN notes): Yes Skin Symptoms (Recalled from RN notes): No MS Symptoms (Recalled from RN notes): No Functional Status (Recalled from RN notes): WNL History of Present Illness Provider Complaint: Patient states for about a month she has been having cough, chest congestion, wheezing on and off and feeling SOA at times after coughing episode States she was prescribed Doxy the beginning of the month and it didnt help much so she went back and they give her a steriod shot and Rocephin shot and it did help some but thinks it may not have cleared it up all the way so she came in today to see if she could get something else to help clear it on up and maybe another steriod shot Related Data Home Medications ?Medication ?Instructions ?Recorded ?Confirmed bumetanide 1 mg tablet 1.5 mg PO DAILY 01/08/24 01/08/24 evolocumab 140 mg/mL subcutaneous 140 mg SQ WEEKLY 01/08/24 01/08/24 pen injector (Repatha SureClick) famotidine 40 mg tablet 40 mg PO DAILY 01/08/24 01/08/24 hydrochlorothiazide 25 mg tablet 25 mg PO DAILY 01/08/24 01/08/24 lisinopril 20 mg tablet 20 mg PO DAILY 01/08/24 01/08/24 meloxicam 15 mg tablet 15 mg PO DAILY 01/08/24 01/08/24 paroxetine HCl 20 mg tablet 20 mg PO DAILY 01/08/24 01/08/24 potassium chloride 10 mEq 10 meq PO DAILY 01/08/24 01/08/24 capsule,extended release rivaroxaban 20 mg tablet (Xarelto) 20 mg PO DAILY 01/08/24 01/08/24 semaglutide 0.25 mg or 0.5 mg (2 0.25 mg SQ WEEKLY 01/08/24 01/08/24 mg/3 mL) subcutaneous pen injector (Ozempic) Previous Rx's ?Medication ?Instructions ?Recorded azithromycin 250 mg tablet See Rx Instructions PO .COMPLEX 5 01/08/24 (Zithromax Z-Rene) days #6 tabs Allergies Allergy/AdvReac Type Severity Reaction Status Date / Time Penicillins [PENICILLINS] Allergy Unknown Verified 12/27/23 10:57 furosemide [From Lasix] Allergy Verified 12/27/23 10:57 losartan Allergy Verified 12/27/23 10:57 morphine Allergy Verified 12/27/23 10:57 Sulfa (Sulfonamide Allergy Verified 12/27/23 10:57 Antibiotics) Worker's Comp Is this a Worker's Comp case?: No [facility] Disclaimer: The information contained in this section may have been updated after the patient was seen, as this information can be updated by other users. Medical History Chest pain Palpitations Dyspnea Pre-diabetes Pulmonary embolism Hyperlipidemia HTN (hypertension) Pelvic abscess Perforation bowel Dizziness Surgical History History of tonsillectomy History of cholecystectomy History of appendectomy History of knee surgery No significant past surgical history Family History Other No significant family history Social History Smoking Status: Never smoker second hand exposure: No alcohol intake: never substance use type: denies use current occupational status: other Travel in the last 8 weeks: None household members: family housing: house ROS Obtained: Yes All systems reviewed & no additional complaints except as documented and Yes Systems reviewed as appropriate & no additional complaints except as documented Constitutional Constitutional: Reports system reviewed and no additional complaints, except as documented, Reports as per HPI, Denies body ache, Denies chills and Denies fever(s) Eyes Eyes: Reports system reviewed and no additional complaints, except as documented and Reports as per HPI ENT Ears, Nose, Mouth, and Throat: Reports system reviewed and no additional complaints, except as documented, Reports as per HPI and Reports sore throat (from coughing) Cardiovascular Cardiovascular: Reports system reviewed and no additional complaints, except as documented and Reports as per HPI Respiratory Respiratory: Reports system reviewed and no additional complaints, except as documented, Reports as per HPI, Reports shortness of breath, Reports chest congestion and Reports cough Gastrointestinal Gastrointestingal: Reports system reviewed and no additional complaints, except as documented Physical Exam General General appearance: alert and in no apparent distress ENT ENT exam: Present mucous membranes moist Expanded ENT Exam Throat exam: Present other (PND noted) Respiratory Respiratory exam: Present normal lung sounds bilaterally and wheezes (mild); Absent respiratory distress Cardiovascular Cardiovascular exam: Present regular rate, normal rhythm and normal heart sounds Neurological Exam Neurological exam: Present alert, oriented X3 and normal gait Medical Decision Making Medical Records Screening: Per USPSTF and CDC recommendations, given the prevalence of disease in our region, it is our hospital?s policy to screen for HIV and viral Hepatitis for all patients aged 18 and over and those with ongoing risk factors. Giovanni Inquiry Pt receiving controlled substance: No Giovanni was queried for this patient: No Vital Signs: 01/08/24 18:00 Temperature 98.8 F Temperature Source Oral Pulse Rate [Left Brachial] 73 Respiratory Rate 20 Blood Pressure [Left Arm] 139/64 Blood Pressure Mean [Left Arm] 89 Blood Pressure Source [Left Arm] Automatic Cuff Blood Pressure Position [Left Arm] Sitting 02 Sat by Pulse Oximetry 96 Oxygen Delivery Method Room Air Orders (Tests/Meds): ORDERS Category Date Time Status CXR 2 view (NOT portable) [XR chest 2V] Stat Exams 01/08/24 16:41 Completed Radiology Data #1: Image(s): Chest Image Reviewed: Yes I have reviewed radiologist's interpretation IMPRESSION: No acute findings. Medical Decision Narrative: Patient states that her diabeties is well controlled and has taken azithromycin with her current medications without complications or reactions
[2024-01-08] MEDS: DEXAMETHASONE 4MG/ML 1ML VIAL 8 MG IM (18:40)
[2024-01-08 18:48] VITALS: BP 139/64; PULSE 73; RESP 20; TEMP 37.1; O2SAT 96
== END 2024-01-08 18:50 | disposition home or self-care (01) ==
PROVIDERS: Emergency Provider Nurse Practitioner; PCP Nurse Practitioner Family
DX: J20.9 Acute bronchitis, unspecified (principal)
CPT/HCPCS: 71046; 96372; 99213; G0381; J1100

== ENCOUNTER 2024-02-20 13:13 | Outpatient (CLI) | payer MEDICARE, SELFPAY | END 2024-02-20 23:59 | disposition home or self-care (01) | LOC: LAB.DROPOF 02-21 09:41 | PROVIDERS: PCP Student in an Organized Health Care Education/Training Program; Visit Provider Student in an Organized Health Care Education/Training Program | DX: R39.9 Unspecified symptoms and signs involving the genitourinary system (principal) | CPT/HCPCS: 87086; 87088; 87186 ==

== ENCOUNTER 2024-03-15 12:26 | Outpatient (CLI) | payer MEDICARE, SELFPAY | END 2024-03-15 23:59 | disposition home or self-care (01) | LOC: LAB.DROPOF 03-18 12:26 | PROVIDERS: PCP Student in an Organized Health Care Education/Training Program; Visit Provider Student in an Organized Health Care Education/Training Program | DX: N39.0 Urinary tract infection, site not specified (principal); B96.20 Unspecified Escherichia coli [E. coli] as the cause of diseases classified elsewhere | CPT/HCPCS: 87086; 87088; 87186 ==

== ENCOUNTER 2024-08-07 11:36 | Outpatient (CLI) | payer MEDICARE, SELFPAY ==
[2024-08-07 12:29] LABS: Basophils # 0.1 K/mm3 (0-0.2); Basophils % 0.8 % (0.1-2.0); Eosinophils # 0.3 Kmm3 (0.0-0.4); Eosinophils % 3.9 % (0.1-12.0); Hematocrit 41.3 % (37.0-47.0); Hemoglobin 13.9 g/dL (12.2-16.2); Immature Granulocytes # 0.02 10^3uL; Immature Granulocytes % 0.3 %; Lymphocytes # 2.2 K/mm3 (0.7-4.5); Lymphocytes % 30.8 % (10-50); Mean Corpuscular HGB Conc 33.7 g/dL (31.8-35.4); Mean Corpuscular Hemoglobin 29.8 pg (27.0-31.2); Mean Corpuscular Volume 88.4 fl (81-99); Mean Platelet Volume 10.4 fl (7.4-10.4); Monocytes # 0.5 K/mm3 (0.1-1.0); Monocytes % 6.7 % (1.7-9.3); Neutrophils # 4.1 K/mm3 (1.8-7.8); Neutrophils % 57.5 % (37.0-80.0); Nucleated Red Blood Cells # 0 10^3/uL; Nucleated Red Blood Cells % 0 %; Platelet Count 249 K/mm3 (142-424); Red Blood Count 4.67 M/mm3 (4.20-5.40); Red Cell Distribution Width 13.8 % (11.5-17.5); Red Cell Distribution Width-SD 44.6 fL; White Blood Count 7.2 K/mm3 (4.8-10.8)
[2024-08-07 13:29] LABS: Alanine Aminotransferase 10 U/L (12-78); Albumin Level 4.4 g/dl (3.5-5.0); Alkaline Phosphatase 105 U/L (38-126); Anion Gap 9.1 mEq/L (5-15); Aspartate Amino Transferase 28 U/L (14-36); Bilirubin,Direct 0.2 mg/dl (0.0-0.4); Bilirubin,Indirect 0.3 mg/dL (0.0-0.9); Bilirubin,Total 0.5 mg/dl (0.2-1.3); Bilirubin,Unconjugated 0.3 mg/dL (0.0-1.1); Blood Urea Nitrogen 22 mg/dl (7-17); Calcium 10.3 mg/dl (8.4-10.2); Carbon Dioxide 33 mmol/L (22.0-30.0); Chloride 100 mmol/L (98-107); Chol/HDL Ratio 4.3 (1-3.5); Cholesterol 204 mg/dl (140-200); Estimated Glomerular Filt Rate 54 ml/min (>60); GFR (African American) 66 ML/MIN (>60); Glucose 86 mg/dl (74-100); HDL Cholesterol 47 mg/dl (40-60); Magnesium 2.1 mg/dl (1.6-2.3); Potassium 4.1 mmoL/L (3.5-5.1); Sodium 138 mmol/L (136-145); Total Protein,Serum 6.8 g/dl (6.3-8.2); Triglycerides 108 mg/dl (30-150); VLDL Cholesterol 22 mg/dL (0-40)
[2024-08-07 13:39] LABS: Direct LDL Cholesterol 131.79 mg/dL (100-129)
[2024-08-07 13:46] LABS: Free T4 (Free Thyroxine) 1.11 ng/dl (0.78-2.19)
[2024-08-07 13:59] LABS: Thyroid Stimulating Hormone 2.15 uIU/mL (0.465-4.68)
== END 2024-08-07 23:59 | disposition home or self-care (01) ==
LOC: LAB 11:36
PROVIDERS: PCP Nurse Practitioner Family; Visit Provider Nurse Practitioner
DX: E66.01 Morbid (severe) obesity due to excess calories (principal); I20.89 Other forms of angina pectoris; I10 Essential (primary) hypertension; Z68.41 Body mass index [BMI] 40.0-44.9, adult
CPT/HCPCS: 80048; 80061; 80076; 83735; 84439; 84443; 85025

== ENCOUNTER 2024-08-23 11:09 | Outpatient (CLI) | payer MEDICARE, SELFPAY ==
--- OUTSIDE RECORDS SUMMARY | 2024-07-24 11:30 | XMS_ITS | Encounter Summary ---
Author Organization Healthcare Address [address] [place] [address] Care Team Providers Care Teletype Technician Name Role Phone Mane Castro MD Primary Care Provider [phone] Reason for Visit * Reason Comments Follow-up Encounter Details Date Type Department Care Team (Latest Contact Info) Description 07/24/2024 11:30 AM EDT Office Visit [facility] General Surgery [address], [address] [place] [address] Erica Alicea, LEAD ATG DEVELOPER [address] [place] [address] Anticoagulated (Primary Dx); Diabetes 1.5, [...] Alicea APRN - 07/24/2024 11:30 AM EDT Subjective Mohinder Yin is a 74 y.o. [...] and underwent laparoscopic hernia repair 2020 at [facility]. This was followed recurrence of the hernia and a laparoscopic hernia repair March 08t [facility]. She developed a recurrence of the [...] motor intact and no focal deficits Skin: Morrison, warm, well perfused Assessment/Plan Problem List Items [...] imaging and/or labs, communicating with other health wound care coordinator, and entering clinical information in the EHR. 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 1.5 years ago [...] Care Team (Late st Contact Info) Description 12/04/2024 11:00 AM EDT Office Visit [facility] General Surgery [address] [place] [address] Garrett Galvin MD [facility] [phone] documented as of this encounter Visit Diagnoses Diagnosis Anticoagulated- Primary Encounter for long-term (current) use of anticoagulants Diabetes 1.5, managed as type 2 (CMS/HCC) Pulmonary HTN (CMS/HCC) Recurrent incisional hernia documented in this encounter Additional Health Concerns Assessment Noted Time A fall risk assessment has been complete d for the patient 11/23/2023 10:08 AM EDT A Body Mass Index follow-up plan has been documented for the patient 07/24/2024 12:33 PM EDT documented as of this encounter Care Teams Teletype Technician Relationship Specialty Start Date End Date Mane Castro MD [address] [place] [address] PCP - General Internal Medicine 11/23/23 documented as of this encounter
--- OUTSIDE RECORDS SUMMARY | 2024-08-23 11:14 | XMS_ITS | Encounter Summary ---
Author Organization [employer] Address [address] [place] [address] Care Team Providers Care Furniture Manager Name Role Phone Mane Castro MD Primary Care Provider [phone] Encounter Details Date Type Department Care Team (Late st Contact Info) Description 09/15/2020 Transcribed Document [facility] [place] [facility] [place] [address] ProviderRayna MD [address] [place] [address] Social History Tobacco Use Types Packs/Day Years Used Date Smoking Tobacco: Never Assessed Comments Unknown Sex and Gender Information Value Date Recorded Sex Assigned at Not on file Legal Sex Female 2:45 PM CDT Gender Identity Not on file Sexual Orientation Not on file documented as of this encounter Miscellaneous Notes * Cerner Conversion Note - Rayna Polo MD - 09/15/2020 11:39 AM CDT Pain Assessment Entered On: 09/15/2020 11:43 EDT Performed On: 09/15/2020 12:06 EDT by SOPHIA KHAN, RN Intervention Information: fentaNYL Performed by SOPHIA KHAN RN on 09/15/2020 11:36:00 EDT fentaNYL,25mcg IV Push,Left Hand,Pain (Moderate 4-6) Pain Assessment Pain Assessment : Follow-up assessment Pain Scale Goal : 4 Pain Scale Used : 0-10 Scale Location : Abdominal Onset : Awoke with pain Quality : Aching Pain Radiation : No Pain Worsened by : Movement Pain Intervention, Drug : Medicated, Oxygen Pain Improved by Intervention : Yes SOPHIA KHAN, RN - 09/15/2020 11:42 EDT Pain Scale Intensity : 6 SOPHIA KHAN, RN - 09/15/2020 11:42 EDT Image 4 - Images currently included in the form version of this document have not been included in the text rendition version of the form. Electronically signed by Rebecca Villanueva Conversion Credit Card Control Clerk Cerner at 07/10/2022 1:09 PM CDT documented in this encounter Plan of Treatment Not on file documented as of this encounter Visit Diagnoses Not on filedocumented in this encounter Care Teams Furniture Manager Relationship Specialty Start Date End Date Mane Castro MD [address] [place] [address] [place] [address] PCP - General Adolescent Medicine 05/04/22 documented as of this encounter
--- OUTSIDE RECORDS SUMMARY | 2024-08-23 11:14 | XMS_ITS | Encounter Summary ---
Author Organization Healthcare Address [address] [place] [address] Care Team Providers Care Medical Psychotherapist Name Role Phone Mane Castro MD Primary Care Provider [phone] Encounter Details Date Type Department Care Team (Late Contact Info) Description 02/19/2024 Orders Only External Location [address] [place] [address] Tamia Hernandez MD [address] [place], [place] [id number] Social History Tobacco Use Types Packs/Day Years Used Date Smoking Tobacco: Former Cigarettes 0.5 15 0 03/28/1970 - 03/28/1985 Smokeless Tobacco: Never PHQ-2 Answer Date Recorded Patient Health Questionnaire-2 Score 0 11/23/2023 Comments Unknown Sex and Gender Information Value Date Recorded Sex Assigned at Not on file Legal Sex Female 9:52 AM EDT Gender Identity Not on file Sexual Orientation Not on file documented as of this encounter Plan of Treatment Upcoming Encounters Date Type Department Care Team (Late Contact Info) Description 12/04/2024 11:00 AM EDT Office Visit [facility] General Surgery [address] [place] [phone] Garrett Galvin MD [address] [place] [phone] documented as of this encounter Procedures Procedure Name Priority Date/Time Associated Diagnosis Comments CT OUTSIDE IMAGES 02/19/2024 11:13 AM EST documented in this encounter Results * CT OUTSIDE IMAGES (02/19/2024 11:13 AM EST) Anatomical Region Laterality Modality Computed Tomogra phy 02/19/2024 11:1 3 AM EST Tamia Hernandez MD IMG CT PROCEDURES Final Result documented in this encounter Visit Diagnoses Not on filedocumented in this encounter Additional Health Concerns Assessment Noted Time A fall risk assessment has been complete d for the patient 11/23/2023 10:08 AM EDT A Body Mass Index follow-up plan has been documented for the patient 11/23/2023 11:39 AM EDT documented as of this encounter Care Teams Medical Psychotherapist Relationship Specialty Start Date End Date Mane Castro MD [address] [place] [address] PCP - General Internal Medicine 11/23/23 documented as of this encounter
--- OUTSIDE RECORDS SUMMARY | 2024-08-23 11:14 | XMS_ITS | Encounter Summary ---
Author Organization [employer] Address [address] [place] [address] Care Team Providers Care Applied Behavior Specialist Name Role Phone Mane Castro MD Primary Care Provider [phone] Encounter Details Date Type Department Care Team (Late st Contact Info) Description 09/16/2020 Transcribed Document [facility] [place] [facility] [place] [address] ProviderRayna MD [address] [place] [address] Social History Tobacco Use Types Packs/Day Years Used Date Smoking Tobacco: Never Assessed Comments Unknown Sex and Gender Information Value Date Recorded Sex Assigned at Not on file Legal Sex Female 2:45 PM CDT Gender Identity Not on file Sexual Orientation Not on file documented as of this encounter Miscellaneous Notes * Cerner Conversion Note - Rayna ProviderMD - 09/16/2020 9:00 PM CDT Pain Assessment Entered On: 09/17/2020 3:24 EDT Performed On: 09/16/2020 22:01 EDT by Niecy Tucker Rn Intervention Information: meloxicam Performed by Niecy Tucker Rn on 09/16/2020 21:01:00 EDT meloxicam,15mg Oral Pain Assessment Pain Assessment : Follow-up assessment Pain Scale Goal : 4 Pain Scale Used : 0-10 Scale Niecy Tucker Rn - 09/17/2020 3:24 EDT Pain Scale Intensity : 2 Niecy Tucker Rn - 09/17/2020 3:24 EDT Image 4 - Images currently included in the form version of this document have not been included in the text rendition version of the form. Electronically signed by Rebecca Villanueva Conversion Customer Account Administrator Cerner at 07/05/2022 8:40 AM CDT documented in this encounter Plan of Treatment Not on file documented as of this encounter Visit Diagnoses Not on filedocumented in this encounter Care Teams Applied Behavior Specialist Relationship Specialty Start Date End Date Mane Castro MD [address] [place] [address] PCP - General Adolescent Medicine 05/04/22 documented as of this encounter
--- OUTSIDE RECORDS SUMMARY | 2024-08-23 11:14 | XMS_ITS | Encounter Summary ---
Author Organization [employer] Address [address] [place] [address] Care Team Providers Care Health Diagnostics Teacher Name Role Phone Mane Castro MD Primary Care Provider [phone] Encounter Details Date Type Department Care Team (Late st Contact Info) Description 09/15/2020 Transcribed Document [facility] [place] [facility] [place] [address] ProviderRayna MD [address] [place] [address] Social History Tobacco Use Types Packs/Day Years Used Date Smoking Tobacco: Never Assessed Comments Unknown Sex and Gender Information Value Date Recorded Sex Assigned at Not on file Legal Sex Female 2:45 PM CDT Gender Identity Not on file Sexual Orientation Not on file documented as of this encounter Miscellaneous Notes * Cerner Conversion Note - Rayna Polo MD - 09/15/2020 9:00 AM CDT Patient: EARNEST YIN Age: 70 years Sex: Female : 1950 Associated Diagnoses: None Author: JARRETT JUAREZ, CLINICAL MEDICAL ASSISTANT Chief Complaint incisional hernia Review of Systems ROS reviewed as documented in chart no change since last seen by surgeon Health Status Allergies: Allergic Reactions (Selected) Severity Not Documented Lasix- Itching and rash. Losartan- Itching and rash. Penicillin- Facial swelling and itching., Allergies (3) Active Reaction Lasix Itching losartan Itching penicillin Facial swelling Current medications: (Selected) Inpatient Medications Ordered Cleocin HCl: 900 mg, 50 mL, 100 mL/Hr, IV Piggyback, PREOP Lactated Ringers Injection intravenous solution 1,000 mL: 20 mL/Hr, IntraVENous Sodium Chloride 0.9% intravenous solution 1,000 mL: 100 mL/Hr, IntraVENous lidocaine 1% preservative-free injectable solution: 0.5 mL, IntraDermal, 1-Time Documented Medications Documented Calcium, Magnesium and Zinc oral tablet: 1 Tab, Oral, Daily, 30 Tab, 0 Refill(s) DilTIAZem (Eqv-Cardizem CD) 120 mg/24 hours oral capsule, extended release: 1 Cap, Oral, Daily, 0 Refill(s) PARoxetine 20 mg oral tablet: 1 Tab, Oral, Daily, 0 Refill(s) Ultram 50 mg oral tablet: 1 Tab, Oral, Q6H, PRN: as needed for pain, 0 Refill(s) bumetanide 1 mg oral tablet: 1.5 Tab, Oral, Daily, 0 Refill(s) meloxicam 15 mg oral tablet: 1 Tab, Oral, Daily, 0 Refill(s) potassium chloride 10 mEq oral capsule, extended release: 1 Cap, Oral, Daily, 30 Cap, 0 Refill(s), Home Medications (7) Active bumetanide 1 mg oral tablet 1.5 mg = 1.5 Tab, Oral, Daily Calcium, Magnesium and Zinc oral tablet 1 Tab, Oral, Daily DilTIAZem (Eqv-Cardizem CD) 120 mg/24 hours oral capsule, extended release 120 mg = 1 Cap, Oral, Daily meloxicam 15 mg oral tablet 15 mg = 1 Tab, Oral, Daily PARoxetine 20 mg oral tablet 20 mg = 1 Tab, Oral, Daily potassium chloride 10 mEq oral capsule, extended release 10 mEq = 1 Cap, Oral, Daily Ultram 50 mg oral tablet 50 mg = 1 Tab, PRN, Oral, Q6H , Medications (4) Active Scheduled: (2) clindamycin/D5w 900 mg 50 mL, IV Piggyback, PREOP lidocaine 1% *PF* inj 30 mL 0.5 mL, IntraDermal, 1-Time Continuous: (2) lactated ringers 1,000 mL 1,000 mL, IntraVENous, 20 mL/Hr NaCl 0.9% 1,000 mL 1,000 mL, IntraVENous, 100 mL/Hr PRN: (0) Problem list: All Problems Urinary tract infection / SNOMED CT 396204006 / Confirmed Tachycardia / SNOMED CT 1664879 / Confirmed Cervical stenosis of spine / SNOMED CT 155215731 / Confirmed Sinusitis / SNOMED CT 17251443 / Confirmed Pulmonary hypertension / SNOMED CT 397588667 / Confirmed Emphysema lung / SNOMED CT 115846638 / Confirmed Perforated bowel / SNOMED CT 21926878 / Confirmed Hyperlipidemia / SNOMED CT 98049492 / Confirmed History of obstructive sleep apnea / IMO 00374034 / Confirmed High blood pressure / SNOMED CT 72114810 / Confirmed Diverticulitis / SNOMED CT 710268265 / Confirmed Cataract / SNOMED CT 025091989 / Confirmed Bronchitis / SNOMED CT 57903735 / Confirmed Back pain / SNOMED CT 1962944394 / Confirmed Arthritis / SNOMED CT 6912765 / Confirmed Allergic rhinitis / SNOMED CT 304734627 / Confirmed, Active Problems (16) Allergic rhinitis Arthritis Back pain Bronchitis Cataract Cervical stenosis of spine Diverticulitis Emphysema lung High blood pressure History of obstructive sleep apnea Hyperlipidemia Perforated bowel Pulmonary hypertension Sinusitis Tachycardia Urinary tract infection incisional hernias Histories Past Medical History: No active or resolved past medical history items have been selected or recorded. Family History: No family history items have been selected or recorded. Procedure history: colon resection with colostomy. colostomy takedown/colon resection/oophorectomy. Cholecystectomy ([id number]). laminectomy. Physical Examination VS/Measurements Vital Signs/Vital Measures 09/15/2020 8:37 EDT Systolic Blood Pressure 182 mmHg HI Diastolic Blood Pressure 83 mmHg Mean Arterial Pressure (MAP)-BMDI 119 Temperature Source Temporal artery scanning Temperature Mode Fahrenheit Heart Rate Monitored 66 bpm Respiratory Rate 14 Breaths/Min Oxygen Saturation 96 % Oxygen Therapy Mode Room air , Vitals Signs (last 24 hrs) Last Charted Minimum Maximum Mon HR 66 (SEP 15 08:37) 66 (SEP 15 08:37) 66 (SEP 15 08:37) Resp Rate 14 (SEP 15 08:37) 14 (SEP 15 08:37) 14 (SEP 15 08:37) SBP H 182 (SEP 15 08:37) H 182 (SEP 15 08:37) H 182 (SEP 15 08:37) DBP 83 (SEP 15 08:37) 83 (SEP 15 08:37) 83 (SEP 15 08:37) MAP 119 (SEP 15 08:37) 119 (SEP 15 08:37) 119 (SEP 15 08:37) SpO2 96 (SEP 15 08:37) 96 (SEP 15 08:37) 96 (SEP 15 08:37) , Measurements from flowsheet : Measurements 09/15/2020 8:29 EDT Height Source Measured Height Entry Format Neche Height/Length, FILIPINO (ft) 5 ft Height/Length FILIPINO 7.5 Inch CLINICALHEIGHT 171.45 cm [place] Body Weight 62 kg Weight Source Standing scale Weight Entry Format Neche Weight [place] lb 245 lb CLINICALWEIGHT 111.36 kg Body Surface Area (BSA) 2.22 m2 Body Mass Index 37.9 kg/m2 HI 09/14/2020 13:20 EDT Height Source Measured Height Entry Format Neche Height/Length, FILIPINO (ft) 5 ft Height/Length FILIPINO 7.5 Inch CLINICALHEIGHT 171.45 cm [place] Body Weight 62 kg Weight Source Standing scale Weight Entry Format Neche Weight [place] lb 245 lb CLINICALWEIGHT 111.36 kg Body Surface Area (BSA) 2.22 m2 Body Mass Index 37.9 kg/m2 HI General: Alert and oriented, No acute distress, obese. Eye: Pupils are equal, round and reactive to light, Extraocular movements are intact, glasses. HENT: Normocephalic, Normal hearing. Neck: Supple, Non-tender. Respiratory: Lungs are clear to auscultation, Respirations are non-labored. Cardiovascular: Normal rate, Regular rhythm, No murmur, No gallop, No edema. Gastrointestinal: Soft, Non-tender, incisional hernias, non tender. Genitourinary: No costovertebral angle tenderness. Lymphatics: No lymphadenopathy neck, axilla, groin. Musculoskeletal: Normal range of motion, Normal strength. Integumentary: Warm, Dry, [place]. Neurologic: Alert, Oriented. Psychiatric: Cooperative, Appropriate mood & affect. Review / Management Results review: No qualifying data available, Lab results: 09/15/2020 9:02 EDT Potassium POC 4.4 mmol/L . Impression and Plan Condition: Stable. documented in this encounter Plan of Treatment Not on file documented as of this encounter Visit Diagnoses Not on filedocumented in this encounter Care Teams Health Diagnostics Teacher Relationship Specialty Start Date End Date Mane Castro MD [address] [place] [address] PCP - General Adolescent Medicine 05/04/22 documented as of this encounter
--- OUTSIDE RECORDS SUMMARY | 2024-08-23 11:14 | XMS_ITS | Encounter Summary ---
Author Organization Healthcare Address [address] [place] [address] Care Team Providers Care Steam Roller Operator Name Role Phone Mane Castro MD Primary Care Provider [phone] Encounter Details Date Type Department Care Team (Late Contact Info) Description 08/21/2023 Orders Only External Location [address] [place] [address] Provider, External Social History Tobacco Use Types Packs/Day Years [...] Description 12/04/2024 11:00 AM EDT Office Visit [facility] General Surgery [address], [address] [place] [address] Garrett Galvin MD [address] [place] [phone] documented as of this encounter Procedures Procedure Name Priority Date/Time Associated Diagnosis Comments CT THORACIC OUTSIDE IMAGES 08/21/2023 9:25 AM EDT documented in this encounter Results * CT THORACIC OUTSIDE IMAGES (08/21/2023 9:25 AM EDT) Anatomical Region Laterality Modality Computed Tomogra phy 08/21/2023 9:25 AM EDT External Provider IMG CT PROCEDURES Final Result documented in this encounter Visit Diagnoses Not on filedocumented in this encounter Care Teams Steam Roller Operator Relationship Specialty Start Date End Date Mane Castro MD [address] [place] [address] PCP - General Internal Medicine 11/23/23 documented as of this encounter
--- OUTSIDE RECORDS SUMMARY | 2024-08-23 11:14 | XMS_ITS | Encounter Summary ---
Author Organization [employer] Address [address] [place] [address] Care Team Providers Care In Home Tutor Name Role Phone Mane Castro MD Primary Care Provider [phone] Encounter Details Date Type Department Care Team (Late st Contact Info) Description 09/15/2020 Transcribed Document [facility] [place] [facility] [place] [address] ProviderRayna MD [address] [place] [address] Social History Tobacco Use Types Packs/Day Years Used Date Smoking Tobacco: Never Assessed Comments Unknown Sex and Gender Information Value Date Recorded Sex Assigned at Not on file Legal Sex Female 2:45 PM CDT Gender Identity Not on file Sexual Orientation Not on file documented as of this encounter Miscellaneous Notes * Cerner Conversion Note - Rayna ProviderMD - 09/15/2020 8:29 AM CDT Height and Weight, Clinical Dosing Entered On: 09/15/2020 8:29 EDT Performed On: 09/15/2020 8:29 EDT by VI Singh RN Height and Weight, Clinical Dosing Height Source : Measured Height Entry Format : [place] Height, Feet : 5 ft(Converted to: 152 cm, 60 Inch) Height, Inches : 7.5 Inch(Converted to: 0 ft 8 Inch, 19.05 cm) Clinical Height : 171.45 cm Weight Source : Standing scale Weight Entry Format : [place] Clinical Dosing Weight : 111.36 kg Weight, Pounds : 245 lb Body Surface Area (BSA) : 2.22 m2 Body Mass Index : 37.9 kg/m2 (HI) [place] Body Weight : 62 kg VI Singh, RN - 09/15/2020 8:29 EDT Electronically signed by Rich [facility] Conversion Occupational Health Physician Cerner at 07/05/2022 8:57 AM CDT documented in this encounter Plan of Treatment Not on file documented as of this encounter Visit Diagnoses Not on filedocumented in this encounter Care Teams In Home Tutor Relationship Specialty Start Date End Date Mane Castro MD [address] [place] [address] PCP - General Adolescent Medicine 05/04/22 documented as of this encounter
--- OUTSIDE RECORDS SUMMARY | 2024-08-23 11:14 | XMS_ITS | Referral Summary ---
Author Organization [employer] Address [address] [place] [address] Care Team Providers Care Accounts Payable Bookkeeper Name Role Phone Mane Castro MD Primary Care Provider [phone] Allergies Active Allergy Reactions Criticality Noted Date Comments Furosemide Itching,Rash Low 05/06/2019 Losartan Itching 05/09/2022 Morphine Other (See Comments) 01/24/2023 Altered mental status Penicillin Swelling High 05/09/2022 face Sulfa (Sulfonamide Antibiotics) Rash Low 07/13/2023 Medications metFORMIN (GLUCOPHAGE) 500 MG tablet Take 1 tablet (500 mg total) by mouth nightly. Active PARoxetine (PAXIL) 20 MG tablet Take 1 tablet (20 mg total) by mouth every morning. Active dilTIAZem (CARDIZEM CD) 180 MG 24 hr capsule Take 1 capsule (180 mg total) by mouth daily. Active bumetanide (BUMEX) 1 MG tablet Take 1.5 tablets (1.5 mg total) by mouth daily. Active omega-3 fatty acids-fish oil 340-1,000 mg Cap per capsule Take 2 capsules (2 g total) by mouth 2 (two) times daily. Active meclizine (ANTIVERT) 25 MG tablet Take 1 tablet (25 mg total) by mouth 3 (three) times daily as needed for Dizziness. Active potassium chloride (MICRO-K) 10 mEq CR capsule Take 1 capsule (10 mEq total) by mouth 2 (two) times daily. Active meloxicam (MOBIC) 15 MG tablet Take 1 tablet (15 mg total) by mouth daily. Active CALCIUM-MAGNESIU M-ZINC ORAL Take by mouth 2 (two) times daily. Active Missing or Non-Formulary Medication Compounded cream: Gabapentin 6% Lidocaine 2.5% Baclofen 2.5% Meloxicam 1%. Active cholecalciferol, vitamin D3, (VITAMIN D3 ORAL) Take by mouth daily. Active Lactobacillus acidophilus 10 billion cell Cap Take 1 tablet by mouth 2 (two) times daily. 60 capsule Active Active Problems Problem Noted Date Diagnosed Date Diverticulitis 07/13/2023 07/13/2023 History of obstructive sleep apnea 07/13/2023 07/13/2023 BMI 39.0-39.9,adult 07/13/2023 Anxiety with depression 01/24/2023 Emphysema lung 01/24/2023 HTN (hypertension) 01/24/2023 Hyperlipidemia 01/24/2023 Incisional hernia 01/24/2023 History of B-cell lymphoma 01/24/2023 S/P radiation therapy 01/24/2023 Obesity 01/24/2023 Vertigo 01/24/2023 Recurrent incisional hernia 01/24/2023 Arthritis 09/02/2020 07/13/2023 Anxiety 09/02/2020 07/13/2023 Sleep apnea 05/21/2019 Perforated diverticulum 02/16/2019 07/13/19 24 Resolved Problems Problem Noted Date Diagnosed Date Resolved Date Colostomy in place 05/13/2019 3 Social History Tobacco Use Types Packs/Day Years Used Date Smoking Tobacco: Former Cigarettes Smokeless Tobacco: Never Tobacco Cessation:Counseling Given: Not Answered Comments:Quit 30 years ago Alcohol Use Standard Drinks/Week Comments Not Currently 0 (1 standard drink = 0.6 oz pur e alcohol) Humiliation, Afraid, Rape, and Kick questionnair e Answer Date Recorded Within the last year, have y ou been afraid of your partner or ex-partner? No 07/13/2023 Within the last year, have y ou been humiliated or emotionally abused in other ways by your partner or ex-partner? No Within the last year, have y ou been kicked, hit, slapped, or otherwise physically hurt by your partner or ex-partner? No 07/13/2023 Within the last year, have y ou been raped or forced to have any kind of sexual activity by your partner or ex-partner? No 07/13/2023 PHQ-2 Answer Date Recorded Patient Health Questionnaire-2 Score 0 07/13/2023 PRAPARE - Transportation Answer Date Re corded In the past 12 months, has l ack of transportation kept you from medical appointments or from getting medications? No 01/24/2023 Lack of Transportation (Non-Medical) Not on file 01/24/2023 Housing Stability Vital Sign Answer Silvestre e Recorded In the last 12 months, was t here a time when you were not able to pay the mortgage or rent on time? No 01/24/2023 In the last 12 months, how many places have you lived? 1 01/24/2023 In the last 12 months, was t here a time when you did not have a steady place to sleep or slept in a longterm (including now)? No 01/24/2023 [facility] Intimate Partner Violence Answer Da te Recorded Within the last year, have y ou been afraid of your partner or ex-partner? No 07/13/2023 Within the last year, have y ou been humiliated or emotionally abused in other ways by your partner or ex-partner? No Within the last year, have y ou been kicked, hit, slapped, or otherwise physically hurt by your partner or ex-partner? No 07/13/2023 Within the last year, have y ou been raped or forced to have any kind of sexual activity by your partner or ex-partner? No 07/13/2023 Interpersonal Safety Answer Date Record ed Family or friends hurt you Not on file 04/01 Family or friends insult you Not on file Family or friends threaten you Not on file 0 04/01/2023 Family or friends scream or curse at you Not on file 04/01/2023 Housing Stability Answer Date Recorded Living situation today Not on file Living situation problems Not on file 2023 Food Insecurity Answer Date Recorded Food run out past 12 months Not on file 03/20 Food did not last past 12 months Not on file 04/01/2023 Employment Answer Date Recorded Help finding and keeping a job Not on file 0 04/01/2023 Family and Community Support Answer Silvestre e Recorded Help with Day to Day Activities Not on file 04/01/2023 Feeling Lonely or Isolated Not on file 04/01 Educational Attainment Answer Date Dipak rded Speak language other than Upper Sorbian at home Not on file 04/01/2023 Want help with school or training Not on file 04/01/2023 Depression Answer Date Recorded PHQ-2 Risk Not on file 04/01/2023 Disabilities Answer Date Recorded Difficulty concentrating Not on file 024 Difficulty doing errands alone Not on file 0 04/01/2023 Substance Use Answer Date Recorded Used prescription meds for non-medical reasons N ot on file 04/01/2023 Used illegal drugs past 12 months Not on file 04/01/2023 Comments No Sex and Gender Information Value Date Recorded Sex Assigned at Not on file Legal Sex Female 2:45 PM CDT Gender Identity Not on file Sexual Orientation Not on file Last Filed Vital Signs Vital Sign Reading Time Taken Comments Blood Pressure 147/53 07/20/2023 8:45 AM EDT Pulse 74 07/20/2023 8:45 AM EDT Temperature 36.7 C (98.1 F) 07/20/2023 8:45 AM EDT Respiratory Rate 16 07/20/2023 8:45 AM EDT Oxygen Saturation 99% 07/20/2023 8:45 AM EDT Inhaled Oxygen Concentration - - Weight 117 kg (258 lb) 07/19/2023 9:32 AM EDT Height 171.5 cm (5' 7.5 ) 07/13/2023 12:28 PM ED T Body Mass Index 39.81 07/13/2023 12:28 PM EDT Plan of Treatment Not on file Medical Devices Implanted Type Area Rope Making Machine Operator Device Identifier Shelf Expiration Date Model / Serial / Lot Mesh Vntrlght Cir Echo 2 15cm [id number] - [id number] Implanted:Qt y: 1 on 01/24/2023 by Garrett Ireland MD at [facility] IMPLANTS N/A: Abdomen CR BARD:DAVOL 08/15/2023 [id number] / / [id number] Cement Bone Smplx 6194-1-001 - [id number] Implanted:Qt y: 2 on 07/19/2023 at [facility] IMPLANTS Left: Knee GLENYS:[employer] [id number] 11/17/2024 6194-1-00 1 / [id number] E Tib Cemented L Sz E 24-8767-579- 01 - [id number] Implanted:Qt y: 1 on 07/19/2023 at [facility] IMPLANTS Left: Knee LANETTE:LANETTE [place] [id number] 05/01/2033 42-5320-0 71-01 / / [id number] Psn Asf Mc 14mm Ve 8-11ef 43-4075-730- 14 - [id number] Implanted:Qt y: 1 on 07/19/2023 at [facility] TOTAL JOINT CONSTRUCT Left: Knee LANETTE:LANETTE [place] [id number] 02/09/2028 42-5121-0 08- / [id number] Psn Fem Cr Cmt Ccr Nrw Sz 8 L 50-2175-908- 01 - [id number] Implanted:Qt y: 1 on 07/19/2023 at [facility] TOTAL JOINT CONSTRUCT Left: Knee LANETTE:LANETTE [id number] 05/21/2033 42-5020-0 64-01 / [id number] Insurance [employer] MEDICARE PPO Advance Directives For more information, please contact: [phone] * Full Code (Latest Code Status on File) Date Activated Date Inactivated Comments 07/19/2023 2:03 PM 07/20/2023 1:55 PM * Full Code Date Activated Date Inactivated Comments 07/19/2023 8:34 AM 07/19/2023 2:03 PM * Full Code Date Activated Date Inactivated Comments 01/24/2023 11:53 AM 01/25/2023 5:52 PM If no pulse : No intervention If has pulse: Use intubation, mechanical ventilation, defibrillation, ACLS medications, or cardioversion as indicated. Call ENVIRONMENTAL LAW PROFESSOR * Full Code Date Activated Date Inactivated Comments 01/24/2023 6:36 AM 01/24/2023 11:53 AM Care Teams Accounts Payable Bookkeeper Relationship Specialty Start Date End Date Mane Castro MD [address] [place] [address] PCP - General Adolescent Medicine 05/04/22
--- OUTSIDE RECORDS SUMMARY | 2024-08-23 11:14 | XMS_ITS | Data Portability ---
Author Organization [facility] [place] [facility] Address [address] [facility] [address] [place] [address] Care Team Providers Care Packager And Strapper Name Role Phone HIEU CAROLINA Referring Provider [phone] ROD YANEZ Primary Care Provider [phone] KEVIN CARVALHO Orthopedic Surgeon Assessment No assessment recorded. Plan of Treatment Reminders Order Date Submit Date Provider Last Modified By Organization Details Last Modified Time Details Appointments None recorded. Lab None recorded. Referral physical therapist referral 2023 024 [facility], [address] [place], [address], 4 14:15:29 Procedures None recorded. Surgeries None recorded. Imaging None recorded. Medication Orders None recorded. Patient TargetsNo targets recorded. Patient InstructionsNo instructions recorded. Reason for Referral Physical Therapist Referral for History of total knee arthroplasty Referring Physician: Camelia Sawant, Orthopedic Surgery, Encounter Date: 08/09/2023 Results Created Date Observation Date Name Description Value Unit Range Abnormal Flag Note LastModifiedBy Organization Detail LastModifiedTime 06/30/19 24 06/30/2023 XR, knee, 4 or more view Khadijah paolmino [facility] [address] [place] [address] Patipadmini agrcia Name: JERRY Baez CHRISETN AGGARWAL Patipadmini t : 1949 Patien t Orderi ng Provid er: CAMELIA SAWANT EXAM DATE: 2023 EXAM: XR KISHA KNEES COMPLE TE, 4 OR MORE VWS HISTOR Y: Bilate ral knee pain. COMPAR KENNEDI: 08/24/19 22 FINDIN GS: There are severe osteoa rthrit ic change s. There is modera te to severe margin al osteop hytic spurri ng. There is near comple te loss of joint space in the medial femoro tibial compar tment. There is no eviden ce of fractu re. IMPRES ESTHER: 1. There are severe osteoa rthrit ic change s in both knees. This is more severe on the left than the right. Interp reted By: Sharmin low MD Electr onical ly Signed By: Sharmin low MD on 024 10:30 AM [facility] [place] [address] [place], [place], [address], 06/30/2023 12:43:19 06/30/19 24 06/30/2023 XR, joint , multi ple, 1 view [facility] candelario [facility] [address] [place] [address] Patien t Name: JERRY VELÁSQUEZ ER Patien t : 1949 Patien t Orderi ng Provid er: HIEU ERIC EXAM DATE: 2023 EXAM: XR LONG LEG LEFT/ JOINT SURVEY COMPAR KENNEDI: Radiog raph of the same date HISTOR Y: Patien t for pre-op erativ e evalua tion. FINDIN GS: There are severe degene rative change s in the left knee. There is promin ent margin al osteop hytic spurri ng with loss of joint space in the medial femoro tibial compar tment. This result s in varus angula tion of the mechan ical axis of the knee. There are mild degene rative change s in the hip and minima l degene rative change s in the ankle. IMPRES ESTHER: 1. There are severe osteoa rthrit ic change s in the left knee with associ ated varus angula tion of the mechan ical axis of the knee. Interp reted By: Sharmin low MD Electr onical ly Signed By: Sharmin low MD on 12:35 PM [email or web address] [facility] [place] [address] , [place], [address], 07/01/2023 20:48:30 08/09/19 24 08/09/2023 XR, knee, 3 view [facility] [address] [place] [address] Patien t Name: JERRY Muniz t : 1949 Patipadmini t Orderi ng Provid er: PREETHI FOXASPEN EXAM DATE: 2023 EXAM: XR LT KNEE 3 VIEWS COMPAR KENNEDI: HISTOR Y: Follow -up of prior surger yDayna FINDANNE GS: There has been interv al placem ent of a left knee total arthro plasty . There is no eviden ce of loosen ing. No fractu re is identi fied. Contra latera l knee: There are modera te degene rative change s. IMPRES ESTHER: 1. There is a left total knee arthro plasty in place withou t eviden ce of loosen ing. Interp reted By: Sharmin low MD Electr onical ly Signed By: Sharmin low MD on 11:55 AM [email or web address] [facility] [place] [address] , [place], [address], 08/09/2023 12:38:43 09/27/19 24 09/27/2023 XR, knee, 3 view [place] [facility] [address] [place] [address] Patipadmini t Name: JERRY Muniz t : 1949 Cristy t Orderi ng Provid er: CAMELIA SAWANT EXAM DATE: 2023 EXAM: XR LT KNEE 3 VIEWS COMPAR KENNEDI: HISTOR Y: Follow -up of prior surger yDayna HERNANDEZ GS: Again seen is a left knee total arthro plasty . There is no eviden ce of loosen ing. No fractu re is identi fied. Contra latera l knee: There are modera te to severe degene rative change s. IMPRES ESTHER: 1. There is a left total knee arthro plasty in place withou t eviden ce of loosen ing. Interp reted By: Sharmin low MD Electr onical ly Signed By: Sharmin low MD on 024 10:16 AM [email or web address] [facility] [place] [address] , [place], [address], 09/27/2023 10:46:03 07/06/19 25 07/05/2024 XR, knee, 4 or more view [facility] [address] [address] Patien t Name: JERRY VELÁSQUEZ Patien t : 1949 Patien t Orderi ng Provid er: SVETLANA BEAN EXAM DATE: 2024 EXAM: XR RT KNEE COMPLE TE, 4 OR MORE VWS COMPAR KENNEDI: HISTOR Y: Right knee pain. FINDIN GS: No fractu re is identi fied. There are severe degene rative change s in the right knee. There is near comple te medial joint space loss. There is modera te to severe margin al spurri ng. Contra latera l knee: There is a total knee arthro plasty is place. IMPRES ESTHER: 1. There are severe degene rative change s in the right knee. Interp reted By: Sharmin low MD Electr onical ly Signed By: Sharmin low MD on 025 3:36 PM [email or web address] [facility] [place] [address] , [place], [address], 07/15/2024 13:22:35 Result Notes None recorded. Problems Name Problem SNOMED Code Status Onset Date Resolution Date Notes Provider Name and Address Organization Details Recorded Time History of major abdominal surgery 976357956 [place] 20[place] [address] [place] [address], [address], [facility] 16:51:37 Type 2 diabetes mellitus without complicatio n 875279709 Active 2023 HIEU BEACH MD [address] [place] [address], [address], [facility] 16:51:38 Osteoarthri tis of left knee joint 5502717741367 09 Active 2023 HIEU BEACH MD [address] [place] [address], [address], [facility] 16:51:39 Problem Notes None recorded. Procedures Surgical History Date Name Laterality Status Provider Name and Address Organization Details Recorded Time 07/06/19 25 Injection Joint/Bursa, Major completed SVETLANA BEAN PA-C [address] [place], [address], [facility] 07/05/2024 16:43:35 09/27/19 24 Injection Joint/Bursa, Major completed CAMELIA SAWANT PA-C [address] [place], [address], [facility] 09/27/2023 10:44:43 07/19/19 24 total replacement of left knee joint completed Magi Niño [facility] 08/09/2023 11:29:28 07/13/19 24 PCM Visit completed Sin Trinidad [facility] 07/17/2023 10:52:34 04/26/19 24 Injection Joint/Bursa, Major completed SVETLANA BEAN PA-C [address] [facility] [place], [address], [facility] 04/26/2023 10:10:20 12/13/19 23 Injection Joint/Bursa, Major completed SVETLANA BEAN PA-C [address] [place], [address], [facility] 12/12/2022 13:44:08 07/08/19 23 Injection Joint/Bursa, Major completed SVETLANA BEAN PA-C [address] [place], [address], [facility] 07/26/2022 14:42:55 08/19/19 22 Injection Joint/Bursa, Major completed KEVIN CARVALHO MD [address] [place], [address], [facility] 08/18/2021 09:11:40 [facility] 08:44:04 cholecystectomy completed Magi [facility] 08/18/2021 08:44:11 Unlisted px latasha's [email or web address] completed Magi [facility] 08/18/2021 08:44:33 Imaging Results None recorded. Procedure Notes None recorded. Medical Equipment None Reported. Allergies Allergen ID Allergen Name Allergen Category Reaction Reaction Severity Criticality Documentation Date Start Date Code Code System Note Provider Name and Address Organization Details Recorded Time 794146 Product containin g penicilli n (product) medicatio n Not available Not available Not available 08/18/2021 55123 8001 SNOMED Magi Niño [facility] 2 08:40:20 198859 Lasix medicatio n Not available Not available Not available 08/18/2021 21961 1 RxNorm Magi Niño [facility] 2 08:40:24 398611 losartan medicatio n Not available Not available Not available 08/18/2021 77610 RxNorm Magi Niño [facility] 2 08:40:30 Medications Name Sig Start Date Stop Date Status Note LastModified by Organization Details LastModified Time Singulair 10 mg tablet Take 1 tablet every day by oral route. 08/18 completed Not Available Not Available Not Available metformin 500 mg tablet Take 1 tablet every day by oral route. active Not Available Not Available No t Available diltiazem CD 180 mg capsule,exte nded release 24 hr Take 1 capsule every day by oral route. active Not Available Not Available No t Available hydrocodone 5 mg-acetamino phen 325 mg tablet Take 1 tablet every 4 hours by oral route. 2023 active Not Available Not Available Not Avai lable tramadol 50 mg tablet Take 1 tablet every 4 hours by oral route. 2023 active Not Available Not Available Not Avai lable Mobic 15 mg tablet Take 1 tablet every day by oral route. active Not Available Not Available No t Available paroxetine 20 mg tablet Take 1 tablet every day by oral route. active Not Available Not Available No t Available diclofenac sodium 75 mg tablet,delay ed release Take 1 tablet twice a day by oral route for 14 days. 2021 active Not Available Not Available Not Avai lable bumetanide 1 mg tablet Take 1.5 tablets every day by oral route. active Not Available Not Available No t Available hydrochlorot hiazide 25 mg tablet Take 1 tablet every day by oral route in the morning. 08/18 completed Not Available Not Available Not Available potassium chloride 10med bid active Not Available Not Available No t Available Centrum Silver daily active Not Available Not Available Not Available Calcium Soft Chew daily active Not Available Not Available Not Available Chantix 08/18 completed Not Available Not Available Not Available Xarelto 15 mg tablet Take 1 tablet twice a day by oral route for 21 days. 2023 active Not Available Not Available Not Avai lable Vitals Date Recorded Body height Body mass index (BMI) Body weight Provider Name and Address Organization Details Last Updated DateTime 07/05/2024 170.18 cm 34.5 kg/m2 39388.32 g Gela Khan [facility] 07/05/2024 14:23:35 Date Recorded Body height Body mass index (BMI) Body weight Provider Name and Address Organization Details Last Updated DateTime 07/09/2023 170.18 cm 38.4 kg/m2 236950.13 g Sin Trinidad [facility] 07/17/2023 10:24:25 Date Recorded Body height Body mass index (BMI) Body weight Provider Name and Address Organization Details Last Updated DateTime 08/09/2023 170.18 cm 38.4 kg/m2 633683.13 g Magi Niño [facility] 08/09/2023 11:28:48 Date Recorded Body height Body mass index (BMI) Body weight Provider Name and Address Organization Details Last Updated DateTime 09/27/2023 170.18 cm 38.4 kg/m2 563059.13 g Kevin Vossrd [facility] 09/27/2023 10:26:53 Social History Question Answer Notes LastModified by Organizat ion Details LastModified Time Tobacco Smoking Status Never Smoker Magi Niño antwan [facility] 08/18/2021 08:43:35 What Is Your Level Of Caffeine Consumption? Moderate [email or web address] Information not available 08/18/2021 What Was The Date Of Your Most Recent Tobacco Screening? 08/09/2023 [email or web address] Information not available 08/09/2023 What Is Your Relationship Status? [email or web address] Information not available 08/18/2021 Has Tobacco Cessation Counseling Been Provided? No Information not available 08/18/2021 Sex: Female Functional Status Question Answer Note LastModified by Organizat ion Details LastModified Time Do you use any illicit or recreational drugs? No [email or web address] Information not available 08/18/2021 Do you or have you ever used any other forms of tobacco or nicotine? No [email or web address] Information not available 08/18/2021 What is your level of alcohol consumption? None [email or web address] Information not available 08/18/2021 Are you currently employed? No retired [email or web address] Information not available 08/18/2021 Mental Status None recorded. Family History Relationship Description Onset Age of this Age Resolved Age Notes LastModified by Organization Details LastModified Time Father No current problems or disability [email or web address] Not available 03/2021 08:43:19 Mother No current problems or disability [email or web address] Not available 03/2021 08:43:19 Medical History Condition Response Allergies/Hayfever N Anxiety/Depression Y Other Y Gout N Thyroid Disease N Kidney Stones N Heart Conditions N Hernia N Migraines N COPD N Glaucoma N Pneumonia N Skin Problems N Immune System Disorder N Anesthesia Complications N Heart Attack (NM) N Mental Illness N Neurological Problems N Diabetes Y Rheumatic Fever N Bleeding Disorder N Arthritis Y Seizures/Epilepsy N Blood Clot N Tuberculosis N Genetic Disorder N AIDS/HIV N Cancer N Stroke N Asthma N Blood Thinners N Alcohol Overuse/Alcohol Abuse N Sleep Apnea N High Cholesterol Y Liver Disease N Included as Review of Systems N Hypertension Y Osteoporosis N Kidney Disease N Gynecological HistoryNo gynecological history recorded. Obstetrics History GPAL:G 0 P 0 0 0 0 Past Encounters Encounter ID Performer Location Encounter Start Date Encounter Closed Date Diagnosis/Indication Diagnosis SNOMED-CT Code Diagnosis ICD10 Code Diagnosis Note [id number] [facility] [place] [address] 06/20/2016 22:53:34 06/20/2016 22:53:34 [id number] ABRAN WAGNER APRN CARDIOLOG Y [address] [place] [address] 10/24/2016 11:22:00 10/25/2016 12:07:56 Palpitations 42412224 R00.2 EKG today reveals NSR, 62 QT/QTc 398/403. Palpitatio ns improved after smoking cessation. Will check TSH today as she states that has not been done in a year. No further testing recommende d. If palpitatio ns return or worsen, recommend 24 hour Holter monitor for evaluation of rate and rhythm. Pulmonary hypertension 28978023 I27.2 RVSP 40-45 per patient report. Echocardio gram in 2015 revealed RVSP of 35. Will review 2017 report when available. Recommend Echocardio gram next year for progressio n. If Echocardio gram relatively unchanged at next office visit, she can have repeat Echocardio gram every 2-3 years or sooner if concerning symptoms arise. Essential hypertension 47968090 I10 BP today 130/84; well controlled on HCTZ 25mg daily. Continue current regimen. Low sodium diet advised. Obstructiv e sleep apnea syndrome 08633389 G47.33 Noted. Is compliant with CPAP. Continued compliance advised. [id number] KEVIN CARVALHO MD [facility] [address] [address] 08/18/2021 08:28:37 08/18/2021 09:37:42 Tear of medial meniscus of knee 699241959 S83.242A Assessment : Left knee medial meniscus tear in the setting of degenerati ve changes and medial tibial plateau stress reaction. Plan: We discussed degenerati ve meniscus tears in the setting of early arthritis. With the stress reaction, arthroscop ic benefit is variable. At this time, I recommend continued strengthen ing and a steroid injection was performed. She tolerated procedure well. She will keep a close eye on her blood glucose next few days. I would recommend exhausting conservati ve measures before potentiall y considerin g arthroscop y. Recommend weightbear ing radiograph s before discussion of arthroscop y. Follow-up for repeat injection if they are beneficial . [id number] SVETLANA BEAN PA-C [facility] [address] [place] [address] 08/23/2021 14:33:54 08/23/2021 16:35:04 Pain of left knee joint 6091846538 48599 M25.562 Assessment : Probable MCL sprain and exacerbati on of osseous contusion following fallPlan: Repeat x-rays ordered today to rule out new fracture. I believe she likely exacerbate d her previous stress reaction with his fall and is now irritated because of it. I would not rule out MCL injury as she is exquisitel y tender to palpate over the MCL and her mechanism of a valgus moment on the knee during the injury would align with this. I will send for diclofenac use as tolerated. I would also like her to get in with physical therapy working on gentle range of motion and strengthen ing in hopes of preserving knee flexion and facilitati ng swelling dissipatio n. Follow-up in 2 weeks for recheck with me. [id number] SVETLANA BEAN PA-C [facility] [address] [place] [address] 09/06/2021 10:12:07 09/06/2021 10:43:02 Pain of left knee joint 0703999723 02633 M25.562 Assessment : Pain of left knee jointPlan: She states her Mobic has controlled the pain well so far and I believe she has made great progress considerin g her range of motion gains and pain improvemen t since last visit. From my standpoint she may follow-up in roughly 3 months for recheck. [id number] SVETLANA BEAN PA-C [facility] [address] [place] [address] 07/07/2022 10:54:57 07/07/2022 12:30:28 Pain of left knee joint 0254397195 32535 M25.562 Assessment : Follow-up for repeat steroid injection into the left knee.Plan: Injection tolerated well today. Follow-up as needed. [id number] SVETLANA BEAN PA-C [facility] [address] [place] [address] 12/12/2022 13:06:36 12/12/2022 14:59:54 Arthritis of left knee 9514596258 324746 M13.862 Derangemen t of lateral meniscus of right knee 5178602110 00673 M23.200 Assessment : 1 Right lateral joint line pain in the setting of probable meniscus degenerati on and moderate degenerati ve changes seen on x-ray.2 left knee pain in the setting of pre-existi ng arthritis Plan: I believe she likely exacerbate d pre-existi ng meniscal damage about the right knee. Most recent A1c was around 5, by her account. I offered a steroid injection into the right knee, which she agreed to. She also inquired about a steroid injection to the left knee, which I find reasonable . Follow-up as needed. [id number] SVETLANA BEAN PA-C [facility] [address] [place] [address] 04/26/2023 09:45:52 04/28/2023 09:12:55 Osteoarthritis of knee 024887281 M17.11 M17.12 Assessment : Repeat bilateral steroid injections into right and left knees, which both have some level of degenerati ve changes. Plan: Steroid injections tolerated well without complicati on. The patient may repeat this injection every 3 months. [id number] CAMELIA SAWANT PA-C [facility] [address] [place] [address] 06/30/2023 09:40:18 06/30/2023 11:25:15 Bilateral osteoarthritis of knees 2019213283 08778 M17.0 Mrs. Yin is a mariana 73 yo female here today for initial evaluation of left knee pain. She has previously been getting injections for months, weaning in benefit. She is now ready to discuss next options. We discussed patients findings of end stage knee osteoarthr itis (OA) today, reviewed radiograph s with patient, answering all questions and concerns. Radiograph s personally reviewed at today's encounter. We discussed that OA is the most common form of arthritis and the degenerati ve, progressiv e nature of OA that can worsenover time, often resulting in chronic pain and stiffness. We discussed how OA is often known as the wear and tear disease and causes breakdown of the cartilage that cushions the ends ofthe bones in their joints. We discussed common OA symptoms including pain, stiffness, tenderness , aching, loss of flexibilit y, grating sensation, bone spurs, swelling, night time pain, and more. We discussed that we can usually manage them with conservati ve treatments . We discussed these conservati ve treatments today including- staying active, maintainin g a healthy weight, formal physical therapy, exercise, rest/ice/c ompress/el evate (RICE methods), anti- inflammato candie (NSAIDs), topical gels/cream s, CBD creams/gum mies, natural supplement s, bracing, cortisone injections , and viscosuppl ementation . Additional ly, we discussed a total joint replacemen t and reviewed surgical expectatio ns, physical therapy expectatio ns post operativel y, and reviewed risks and benefits of surgery. Patient has trialed and failed multiple rounds of injections and meloxicam for conservati ve treatments . Patient verbalized understand ing and elected to proceed with surgical discussion today. I will set her up with international sales representative and have her see Dr. Sun for formal surgical discussion along with risks/bene fits of a total knee arthroplas ty. Possible surgery: Stacia sierra medical history: pulmonary HTN , DMII A1c 5.6 (recent ~1 month)Othe r notable informatio n: sister (Vannesa Dowd) just had her knees replaced by Dr. Sun Pain of bi lateral knee joints 8010055722 24211 M25.561 M25.562 [id number] HIEU Zavala MD [facility] [address] [place] [address] 07/04/2023 12:51:35 07/04/2023 14:14:52 Osteoarthritis of left knee joint 0211829436 75578 M17.12 ASSESSMENT : DJD LEFT knee PLAN:The patient has end stage osteoarthr itis of the LEFT knee. The patient has failed > 3 months of conservati ve measures including NSAIDs, activity modificati on, corticoste roid injections , etc. The patient has pain daily, affecting his/her activities of daily living, and interferin g with sleep. They wish to proceed with total knee arthroplas ty, which I believe to be reasonable . Per ACR/AAHKS guidelines , arthroplas ty in patients with moderate to severe arthritis should not be delayed simply to engage in additional nonoperati ve treatment options. We reviewed the risks, benefits, and alternativ es to knee replacemen t surgery. We discussed the risk of infection, fracture, neurovascu lar injury, chronic pain, stiffness, instabilit y, aseptic loosening, and component wear. We discussed the risk of medical complicati ons, including but not limited to, VTE, pulmonary complicati ons, cardiac complicati ons, and stroke. All questions were answered to the best of my ability. She does remain high risk for complicati ons from surgery due to comorbidit ies including diabetes and history of major abdominal surgery. The patient expresses understand ing and awareness of PCM services, including but not limited to potential cost sharing responsibi lities; only one [facility] can furnish and bill for PCM services during a calendar month, and the patient can stop these services at any time. The patient understand s and has verbally consented to accept PCM services and has been provided a copy of a written explanatio n of this service today. Surgery date: [facility] location: [facility] Hospital equipment: Cemented Fermín MCPre-op clearance: PASSOther medical clearance: DVT prophylaxi s: ASA, TEDAdmissi on status: OUTPATIENT Discharge plan: overnight admissionP T: home health Allergies: PCNSkin testing: No Type 2 tanisha betes mellitus without complication [id number] E11.9 Well-contr olled on metformin per patient report. We will check A1c and fructosami ne prior to surgery. Diabetes increases a patient's risk for medical and surgical complicati ons including delayed wound healing, superficia l and deep infection and hospital readmissio n for other medical complicati ons. Perioperat miriam glucose control is critical and minimizing the risk of these complicati ons. History of major abdominal surgery 028165793 Z98.890 Numerous abdominal surgeries related to perforated diverticul um. This does increase her risk for small bowel obstructio n, ileus, and other abdominal complicati ons following elective TKA. [id number] HIEU Zavala MD [facility] [address] [place] [address] 07/13/2023 15:34:26 07/18/2023 08:49:46 [id number] HIEU Zavala MD SURGERY SCHEDULE [address] [place] [address] 07/19/2023 13:20:19 07/21/2023 14:20:11 [id number] CAMELIA SAWANT PA-C [facility] [address] [place] [address] 08/09/2023 11:21:00 08/09/2023 11:56:04 History of total knee arthroplasty [id number] Z96.659 Mrs. Yin is a mariana 3 weeks post op LTKA. Patient reports they are doing excellent, without complaints . She did develop a PE after surgery and was hospitaliz ed for a few nights, started on heparin drip, now on xarelto. Radiograph s obtained today reveal intact LTKA implants in good positionin g and alignment, with no evidence of loosening, lysis or RLLs.Physi aminah exam reveals good ROM without pain and a well-heale d surgical incision. We reviewed the expected progressio n of recovery and rehabilita tion from a total knee replacemen t and explained that any symptoms such as nighttime aching and morning stiffness are due to soft tissue weakness, are within expectatio ns at this point post-op and should resolve over time asthey build strength and stamina. Very very pleased with her progress at this stage. RTC in 3 weeks for routine 6 week post op follow up with radiograph s. [id number] CAMELIA SAWANT PA-C [facility] [address] [facility] [place] [address] 09/27/2023 09:51:37 09/27/2023 10:41:58 History of total knee arthroplasty [id number] 105 Z96.659 Mrs. Yin is a mariana 8 weeks post op LTKA. Patient reports they are doing excellent, without complaints . Her pes planus time is her right knee osteoarthr itis, we discussed tolerated well, discussed injection risks, answered all questions and concerns. Conservati ve treatments and elected to proceed with a right knee cortisone injection. Of note, she did develop a PE after surgery and was hospitaliz ed for a few nights, started on heparin drip, now on xarelto. Radiograph s obtained today reveal intact LTKA implants in good positionin g and alignment, with no evidence of loosening, lysis or RLLs.Physi aminah exam reveals good ROM without pain and a well-heale d surgical incision. We reviewed the expected progressio n of recovery and rehabilita tion from a total knee replacemen t and explained that any symptoms such as nighttime aching and morning stiffness are due to soft tissue weakness, are within expectatio ns at this point post-op and should resolve over time asthey build strength and stamina. RTC in 3 months for LLXR and possible R knee CSI Osteoarthr itis of right knee joint [id number] M17.11 [id number] SVETLANA BEAN PA-C [facility] [address] [address] 07/05/2024 13:13:07 07/05/2024 15:48:52 Osteoarthritis of right knee joint [id number] M17.11 Assessment : Osteoarthr itis right knee Plan: Steroid injection tolerated well without complicati on. Follow-up as needed. Health Concerns Section Related Observation LastModified by Organization Detai ls LastModified Time None Recorded Concern Status LastModified by Organization Details LastModified Time None Recorded Advance Directives Directive None Recorded Payers Insurance Date Sequence Insurance Name Policy Number Policy Brown Covered Member ID Brown Member ID Guarantor Name 01/01/2024 PAYMENT PLAN Mohinder Baez Humphrey 09/11/2023 1 [place] Mohinder Baez Humphrey [id number] Carolynchasity Nestor Yin 07/04/2024 1 [employer] (MEDICARE REPLACEMENT/ ADVANTAGE - PPO) Mohinder Baez Humphrey [id number] Mohinder Baez Humphrey Notes Date Note Type Note Provider Name and Address Organization Details Recorded Time 07/09/2023 text/html Mohinder was seen and evaluated on 06/30/23 with Camelia BALL where surgical decision was made, and then by Dr Carolina on 07/04/23 where surgical plan was discussed and finalized. HIEU CAROLINA MD [address] [place], [address], [facility] 07/23/2023 13:40:21 08/09/2023 text/html 08/09/23 Patient is 3 weeks s/p L TKA. s/p 07/19/23.Pain is improvingCurrently taking no doses per day of narcotic. Tylenol 3 only at bedtime.Ambulating with canePT: home healthto start Outpatient soon Denies fevers, chills, or wound drainage.They do not request a refill of pain medicine. Operative cultures Not Obtained CAMELIA SAWANT PA-C [address] [place], [address], [facility] 08/09/2023 13:47:59 09/27/2023 text/html 09/27/23Patient i s here today for 6 8 week post op visit from L TKA. DOS 07/19/23Doing well.Pain completely better. Complains of a little stiffness but otherwise doing well. Ambulating with no assistive device PT: outpatient. Has only gone to evaluation appointment. Will start returning Has been swimming. Still taking narcotics noDenies fevers, chills, or wound drainage. 08/09/23 Patient is 3 weeks s/p L TKA. s/p 07/19/23.Pain is improvingCurrently taking no doses per day of narcotic. Tylenol 3 only at bedtime.Ambulating with canePT: home healthto start Outpatient soon Denies fevers, chills, or wound drainage.They do not request a refill of pain medicine. Operative cultures Not Obtained CAMELIA SAWANT PA-C [address] [place], [address], [facility] 09/27/2023 10:45:54 07/05/2024 text/html WHAT: Right Left Bilateral right Knee Ankle Hip Thigh Lower Leg Shoulder Elbow W rist/Hand knee. WHEN: 3 weeks HOW: no injury SYMPTOMS: pain and instability is the main concern Pain is intermittent . The patient does not have numbness or tingling They have popping and clicking They are not able to sleep comfortably with this injury. Their pain is made better with resting the limb Their pain is exacerbated by bearing weight on the affected limb putting weight on and moving the affected limb nothing bearing weight on the affected limb. Overall, the patient would say that their pain is well-controlled at this time PAIN: X-RAY: LC MRI: LC We have disc Patient has disc No Disc none PT: none INJECTION: none SVETLANA BEAN PA-C [address] [place], [address], [facility] 07/05/2024 16:43:43 OBGyn Episode No OBEpisode recorded.
--- OUTSIDE RECORDS SUMMARY | 2024-08-23 11:14 | XMS_ITS | Encounter Summary ---
Author Organization [employer] Address [address] [place] [address] Care Team Providers Care Supervisor Abattoir Name Role Phone Mane Castro MD Primary Care Provider [phone] Encounter Details Date Type Department Care Team (Late st Contact Info) Description 09/15/2020 Transcribed Document [facility] [place] [facility] [place] [address] ProviderRayna MD [address] [place] [address] Social History Tobacco Use Types Packs/Day Years Used Date Smoking Tobacco: Never Assessed Comments Unknown Sex and Gender Information Value Date Recorded Sex Assigned at Not on file Legal Sex Female 2:45 PM CDT Gender Identity Not on file Sexual Orientation Not on file documented as of this encounter Miscellaneous Notes * Cerner Conversion Note - Rayna Polo MD - 09/15/2020 8:09 AM CDT Admission History, Adult Entered On: 09/15/2020 13:39 EDT Performed On: 09/15/2020 8:09 EDT by ANTWAN REGALADO RN Advance Directive Patient has Advance Directive *Q : Yes, Advance Directive with the patient Advance Directive Type : Living will Copy Advance Directive Verified/on Chart : No ANTWAN REGALADO RN - 09/15/2020 13:34 EDT Anesthesia/Transfusion History Family History of Anesthesia Reaction : No prior transfusion(s) Blood Transfusion Acceptable to Patient : Yes Transfusion History : Prior anesthesia reaction Type of Anesthesia Reaction : Other: pt reports having panic attacks and morphine terrors or opiod psychosis for 3 months after both prior procedures Family History of Anesthesia Reaction : None ANTWAN REGALADO RN - 09/15/2020 13:34 EDT Functional Assessment Living Situation : Home Patient Lives With : Spouse Current Home Treatments : CPAP ANTWAN REGALADO RN - 09/15/2020 13:34 EDT General Info Preferred Name : Chloé Arrived From : Home Mode of Arrival on Unit : Ambulatory Legal Guardian : Spouse Support Person/Patient Tow Car Driver : Yes Support Person/Pt Rep Name : Lewis Yin - Support Person/Pt Rep Contact Information : [phone] Want Family/Rep/Phys Notified of Admit : No Emergency Contact #1 : `Lewis Yin Emergency Contact #1 Phone Number : `[phone] Emergency Contact #1 Relationship : ` Emergency Contact #2 : ` Emergency Contact #2 Phone Number : ` Emergency Contact #2 Relationship : ` Information Obtained From : Patient Primary Language : Guatemalan Communication Barrier : None Credit Administration Officer Needed : No ANTWAN REGALADO RN - 09/15/2020 13:34 EDT Fall Risk Scales ABCs Fall Injury Risk Identification : None HERRON Hx Falls Immediate/Within 3 Months : No Herron Secondary Diagnosis : Yes HERRON Use of Ambulatory Aid : None HERRON IV Therapy or IV Access : Yes [place] Gait/Transferring : Normal, bedrest, immobile Herron Mental Status : Oriented to own ability Herron Fall Risk Score : 35 HERRON Fall Scale Risk Level : 25-45 Medium Risk [place] Fall Interventions : Adequate lighting, Personal items within reach ANTWAN REGALADO RN - 09/15/2020 13:34 EDT Health Histories Smoking Status : Former smoker, quit more than 30 days ago Smokeless Tobacco Status : Never Implant/Device Type, Crown Presser and Model : dental bridge ANTWAN REGALADO RN - 09/15/2020 13:34 EDT Social History (As Of: 09/15/2020 13:39:26 EDT) Tobacco: Former smoker, quit more than 30 days ago Smoking Status. Never Smokeless Tobacco Status. None Smokeless Tobacco Use History. Last Used: I've not smoked in 30 years . Second Hand Smoke Exposure: Yes. (Last Updated: 09/14/2020 13:18:48 EDT by Haroon Machado, Rn) Alcohol: Alcohol Use History No. Use in Last 12 Months: No. Alcohol Use Comment Pt has been in recovery for 35 years . (Last Updated: 09/14/2020 13:20:44 EDT by Haroon Mcahado, Rn) Substance Abuse: Drug Use Hx: No. Use in Last 12 Months: No. (Last Updated: 09/14/2020 13:18:48 EDT by Haroon Machado, Rn) Height and Weight, Clinical Dosing Height Source : Measured Height Entry Format : [place] Height, Feet : 5 ft(Converted to: 152 cm, 60 Inch) Height, Inches : 7.5 Inch(Converted to: 0 ft 8 Inch, 19.05 cm) Clinical Height : 171.45 cm Weight Source : Standing scale Weight Entry Format : [place] Clinical Dosing Weight : 111.36 kg Weight, Pounds : 245 lb Body Surface Area (BSA) : 2.22 m2 Body Mass Index : 37.9 kg/m2 (HI) [place] Body Weight : 62 kg ANTWAN REGALADO RN - 09/15/2020 13:34 EDT Infectious Disease History Has the patient ever been tested for COVID-19? : Yes, Patient stated results Negative Where are the test results? : In EMR Results Date of COVID-19 test known? : Yes Date of COVID-19 Test : 09/11/2020 EDT Does patient have symptoms of COVID-19? : No COVID19 Screening : No Experiencing Infectious Disease Symptoms : Cough Physical contact outside [place] in the last 30 days : No Infectious Disease History : Chicken pox/Shingles Tuberculosis Symptoms : None ANTWAN REGALADO RN - 09/15/2020 13:34 EDT Influenza Vaccine Asmt, Adult Previous Vaccines from Immunization Schedule : No qualifying data available. Influenza Immunization, Current Season : Yes Influenza Immunization Date : 12/19/2019 EDT ANTWAN REGALADO RN - 09/15/2020 13:34 EDT Pneumococcal Vaccine Previous Vaccines from Immunization Schedule : No qualifying data available. Pneumonia Immunization Received : No Pneumococcal Risk Assessment < Age 65 : N/A- Patient 65 years of age or older Pneumococcal Vaccine Contraindications : No contraindications to pneumococcal vaccine Transplant Workup/Recent Transplant : No Order for Pneumococcal Vaccine : Declined Vaccination ANTWAN REGALADO RN - 09/15/2020 13:34 EDT Order Details Patient Needs Meds Crushed/Liquid : No ANTWAN REGALADO RN - 09/15/2020 13:34 EDT Nutrition History Adaptive Feeding Equipment : Regular Eating Poorly Due to Decreased Appetite : No Unplanned Weight Loss in Past 3-6 Months : No Malnutrition Screening Tool Total(mal) : 0 Malnutrition Screening Tool Risk Level : Patient not at risk ANTWAN REGALADO RN - 09/15/2020 13:34 EDT [place] Suicide Severity Rating Scale (C-SSRS) CSSRS Past Month Wish to be : No CSSRS Past Month Suicidal Thoughts : No CSSRS Lifetime Suicide Behavior : No Suicide Severity Rating Score : 0 Suicide Severity Rating : No Additional Care Required at this time ANTWAN REGALADO RN - 09/15/2020 13:34 EDT Psychosocial History Currently in Unsafe Situation : No ANTWAN REGALADO RN - 09/15/2020 13:34 EDT Sleep Apnea Risk Assmt BiPAP/CPAP Ordered for Home Use : Yes Hx of Obstructive Sleep Apnea Diagnosis : Yes BiPAP/CPAP Used at Home : Yes Age over 50 Years Old : Yes Gender Male : No ANTWAN REGALADO RN - 09/15/2020 13:34 EDT Valuables and Belongings Valuables and Belongings : Clothing, Personal devices Clothing : Common streetwear Clothing Disposition : Bedside Personal Device Disposition : Bedside Personal Devices : Dentures, upper, Dentures, partial plate, Glasses ANTWAN REGALADO RN - 09/15/2020 13:34 EDT Electronically signed by Rich [facility] Conversion Dry Talc Racker Cerner at 07/05/2022 8:39 AM CDT documented in this encounter Plan of Treatment Not on file documented as of this encounter Visit Diagnoses Not on filedocumented in this encounter Care Teams Supervisor Abattoir Relationship Specialty Start Date End Date Mane Castro MD [address] [place] [address] PCP - General Adolescent Medicine 05/04/22 documented as of this encounter
--- OUTSIDE RECORDS SUMMARY | 2024-08-23 11:14 | XMS_ITS | Clinical Summary ---
Author Organization [employer] Address [address] [place] [address] Care Team Providers Care Rn Chemical Dependency Name Role Phone Mane Castro MD Primary Care Provider [phone] Allergies Active Allergy Reactions Criticality Noted Date [...] mouth 2 (two) times daily. 60 capsule 4 Active Active Problems Problem Noted Date Diagnosed [...] Resolved Date Colostomy in place 05/13/2019 3 Family History Medical History Relation Name Comments Alcohol abuse Brother Arthritis Brother COPD Brother Hypertension Brother Arthritis Father COPD Father Hypertension Father Stroke Father Arthritis Maternal Grandfather Arthritis Maternal Grandmother Stroke Maternal Grandmother Arthritis Mother COPD Mother Stroke Mother Arthritis Paternal Grandfather Stroke Paternal Grandfather Arthritis Paternal Grandmother Arthritis Sister Relation Name Status Comments Brother Father Maternal Grandfather Maternal Grandmother Mother Paternal Grandfather Paternal Grandmother Sister Social History Tobacco Use Types Packs/Day Years [...] place to sleep or slept in a assisted (including now)? No 01/24/2023 [facility] Intimate Partner [...] Date Dipak rded Speak language other than Chinese at home Not on file 04/01/2023 Want [...] 07/13/2023 12:28 PM EDT Plan of Treatment Health Maintenance Due Date Last Done Comments CT Colonography 1950 Colonoscopy 1950 Colorectal Cancer Screening 1950 DXA SCAN 1950 FOBT/FIT 1950 Fit-DNA (Cologuard) 1950 Sigmoidoscopy 1950 Hepatitis C Screening 1969 DTAP/TDAP/TD VACCINES (1 - Tdap) 1970 Shingles Vaccine (Zoster) (1 of 2) 2001 Respiratory Syncytial Virus (RSV) Adult or (1 - Risk 60-74 years 1-dose series) 2011 Medicare Initial AWV G0438 03/21/2018 COVID-19 VACCINE (5 - 2023-2 5 season) 2023 07/20/2021, 12/16/2020, 04/29/2020, Additional history exists Falls Risk Screening 03/20/2024 Breast Cancer Screening 07/05/2024 07/05/2022, 04/05 Tobacco Cessation Counseling and Screening (12+) 07/18/2024 07/19/2023 Influenza Vaccine (Season Ended) 2024 12/08/2020, 12/30/2019, 01/11/2018, Additional history exists Pneumococcal 50+ years Completed 10/15/2018, 2016 Medical Devices Implanted Type Area Transmitter Chief Device Identifier Shelf Expiration Date Model / Serial / Lot Mesh Vntrlght Cir Echo 2 15cm [id number] - [id number] Implanted:Qt y: 1 on 01/24/2023 by Garrett [facility] at [facility] IMPLANTS N/A: Abdomen CR BARD:DAVOL 08/15/2023 [id number] / / [id number] Cement Bone Smplx 6194-1-001 - [id number] Implanted:Qt y: 2 on 07/19/2023 at [facility] IMPLANTS Left: Knee GLENYS:[employer]YKE R [employer] [id number] 11/17/2024 6194-1-00 1 / / [id number] E Tib Cemented L Sz E 83-4124-759- 01 - [id number] Implanted:Qt y: 1 on 07/19/2023 at [facility] IMPLANTS Left: Knee LANETTE:LANETTE [id number] 05/01/2033 42-5320-0 71-01 / / [id number] Psn Asf Mc 14mm Ve 8-11ef 34-1059-584- 14 - [id number] Implanted:Qt y: 1 on 07/19/2023 at [facility] TOTAL JOINT CONSTRUCT Left: Knee LANETTE:LANETTE [id number] 02/09/2028 42-5121-0 08-14 / [id number] Psn Fem Cr Cmt Ccr Nrw Sz 8 L 52-8981-511- 01 - [id number] Implanted:Qt y: 1 on 07/19/2023 at [facility] TOTAL JOINT CONSTRUCT Left: Knee LANETTE:LANETTE [id number] 05/21/2033 42-5020-0 64-01 / [id number] Insurance [employer] MEDICARE PPO Advance Directives For more information, please contact: [phone] * Full Code (Latest Code Status on [...] ACLS medications, or cardioversion as indicated. Call ON SITE CONSTRUCTION SUPERINTENDENT * Full Code Date Activated Date Inactivated Comments 01/24/2023 6:36 AM 01/24/2023 11:53 AM Care Teams Rn Chemical Dependency Relationship Specialty Start Date End Date Mane Castro MD [address] [place] [address] PCP - General Adolescent Medicine 05/04/22
--- OUTSIDE RECORDS SUMMARY | 2024-08-23 11:14 | XMS_ITS | Encounter Summary ---
Author Organization [employer] Address [address] [place] [address] Care Team Providers Care Safety Engineer Name Role Phone Mane Castro MD Primary Care Provider [phone] Encounter Details Date Type Department Care Team (Late st Contact Info) Description 09/15/2020 Transcribed Document [facility] [place] [facility] [place] [address] ProviderRayna MD [address] [place] [address] Social History Tobacco Use Types Packs/Day Years Used Date Smoking Tobacco: Never Assessed Comments Unknown Sex and Gender Information Value Date Recorded Sex Assigned at Not on file Legal Sex Female 2:45 PM CDT Gender Identity Not on file Sexual Orientation Not on file documented as of this encounter Miscellaneous Notes * Cerner Conversion Note - Rayna Polo MD - 09/15/2020 9:58 AM CDT [facility] Main OR Preop Summary Primary Physician: KATIUSKA POLANCO MD-SUR Finalized Date/Time: 09/15/20 12:35:08 Pt. Name: EARNEST YIN/Sex: 1950 Female Med Rec #: [id number] Physician: KATIUSKA POLANCO MD-SUR Financial #: [id number] Pt. Type: O Room/Bed: ASA/7 Admit/Disch: 09/15/20 08:13:00 - Institution: [facility] PreOp Case Times Entry 1 In Preop 09/15/20 08:24:00 Ready for Holding n/a Room Patient Ready for 09/15/20 09:03:00 Surgery Patient Out of Preop 09/15/20 09:30:00 Patient Out of n/a Holding Room Last Modified By: PETE MEDLEY RN 09/15/20 12:35:03 [facility] PreOp Case Times Audit 09/15/20 12:35:03 Armhole Sewer: WILSONDL Modifier: MCGRANM <+> 1 Patient Out of Preop 09/15/20 09:03:34 Armhole Sewer: WILSONMOISE Modifier: WILSONDL <+> 1 Patient Ready for Surgery Finalized By: PETE MEDLEY RN Document Signatures Signed By: PETE MEDLEY RN 09/15/20 12:35 Electronically signed by Rich [facility] Conversion Senior Security Engineer Cerner at 07/05/2022 8:57 AM CDT documented in this encounter Plan of Treatment Not on file documented as of this encounter Visit Diagnoses Not on filedocumented in this encounter Care Teams Safety Engineer Relationship Specialty Start Date End Date Mane Castro MD [address] [place] [address] PCP - General Adolescent Medicine 05/04/22 documented as of this encounter
--- OUTSIDE RECORDS SUMMARY | 2024-08-23 11:14 | XMS_ITS | Encounter Summary ---
Author Organization [employer] Init [employer] Address [address] [place] [address] Care Team Providers Care Food Safety Specialist Name Role Phone Mane Castro MD Primary Care Provider [phone] Encounter Details Date Type Department Care Team (Late st Contact Info) Description 09/15/2020 Transcribed Document [facility] Family Medicine [address] [place] [address] ProviderRayna MD [address] [place] [address] Social History Tobacco Use Types Packs/Day [...] Polo MD - 09/15/2020 9:58 AM CDT [facility] Main OR IntraOp Summary Primary Physician: KATIUSKA POLANCO MD-SUR Finalized Date/Time: 09/19/20 15:22:41 Pt. Name: EARNEST YIN/Sex: 1950 Female Med Rec #: [id number] Physician: KATIUSKA POLANCO MD-SUR Financial #: [id number] Pt. Type: O Room/Bed: Critical access hospital/ Admit/Disch: 09/15/20 08:13:00 - 09/17/20 11:59:00 Institution: [facility] IntraOp Case Attendance Entry 1 Entry 2 Entry 3 Case Attendee KATUISKA POLANCO MD-ALTHEA Rosalia Malhotra, RN Kim Cox, Napper Tender Role Performed Surgeon/Proceduralist, Airborne Operations Manager, First Scrub, First First Time In 09/15/20 09:32:00 09/15/20 09:32:00 09/15/20 09:32:00 Time Out 09/15/20 11:17:00 09/15/20 11:17:00 09/15/20 11:17:00 Procedure Hernia Repair Hernia Repair Hernia Repair Incisional Laparoscopic Incisional Laparoscopic Incisional Laparoscopic Other Attendee Superficial Wound Closed By: Last Modified By: Rosalia Malhotra, Rosalia Bain, Rosalia Bain, TIFFANIE 09/15/20 11:17:49 09/15/20 11:17:49 09/15/20 11:17:49 Entry 4 Entry 5 Entry 6 Case Attendee BRYANT CAMARGO Mark, JERRICA COONEY MD-ANS Role Performed Anesthesiologist of TOBACCO PACKING MACHINE OPERATOR/Nurse Tumbler Tender Anesthesiologist of Record Record Time In 09/15/20 09:32:00 09/15/20 09:32:00 09/15/20 09:32:00 Time Out 09/15/20 11:17:00 09/15/20 11:17:00 09/15/20 11:17:00 Procedure Hernia Repair Hernia Repair Hernia Repair Incisional Laparoscopic Incisional Laparoscopic Incisional Laparoscopic Other Attendee Superficial Wound Closed By: Last Modified By: Rosalia Malhotra, Rosalia Bain, Rosalia Bain, TIFFANIE 09/15/20 11:17:49 09/15/20 11:17:49 09/15/20 11:17:49 Entry 7 Entry 8 Entry 9 Case Attendee OTHER, ATTENDEE #1 Quang Freeman REP-SSI OTHER, ATTENDEE #2 Role Performed TOBACCO PACKING MACHINE OPERATOR/Nurse Tumbler Tender Service Greeter, Ancillary Airborne Operations Manager, Second Time In 09/15/20 09:32:00 09/15/20 09:32:00 09/15/20 09:32:00 Time Out 09/15/20 11:17:00 09/15/20 11:17:00 09/15/20 11:17:00 Procedure Hernia Repair Hernia Repair Hernia Repair Incisional Laparoscopic Incisional Laparoscopic Incisional Laparoscopic Other Attendee ERICA DICKENS CRNA STUDENT STEF TALISHAJayleen REDDING Superficial Wound Closed By: Last Modified By: Rosalia Malhotra, Rosalia Bain, Rosalia Bain RN 09/15/20 11:17:49 09/15/20 11:17:49 09/15/20 11:17:49 Entry 10 Case Attendee Carine Romero RN Role Performed Airborne Operations Manager, Second Time In 09/15/20 09:52:00 Time Out 09/15/20 11:17:00 Procedure Hernia Repair Incisional Laparoscopic Other Attendee RELIEF Superficial Wound Closed By: Last Modified By: Rosalia Malhotra RN 09/15/20 11:17:49 [facility] IntraOp Case Attendance Audit 09/15/20 11:17:49 Journeyman Lineman: LAFAVEHM Modifier: LAFAVEHM 1 <+> Time Out 1 <*> Procedure Hernia Repair Incisional Laparoscopic 2 <+> Time Out 2 <*> Procedure Hernia Repair Incisional Laparoscopic 3 <+> Time Out 3 <*> Procedure Hernia Repair Incisional Laparoscopic 4 <+> Time Out 4 <*> Procedure Hernia Repair Incisional Laparoscopic 5 <+> Time Out 5 <*> Procedure Hernia Repair Incisional Laparoscopic 6 <+> Time Out 6 <*> Procedure Hernia Repair Incisional Laparoscopic 7 <+> Time Out 7 <*> Procedure Hernia Repair Incisional Laparoscopic 8 <+> Time Out 8 <*> Procedure Hernia Repair Incisional Laparoscopic 9 <+> Time Out 9 <*> Procedure Hernia Repair Incisional Laparoscopic 10 <+> Time Out 10 <*> Procedure Hernia Repair Incisional Laparoscopic 09/15/20 09:53:44 Journeyman Lineman: LAFAVEHM Modifier: LAFAVEHM 1 <+> Time In 1 <*> Procedure Hernia Repair Incisional Laparoscopic 2 <+> Time In 2 <*> Procedure Hernia Repair Incisional Laparoscopic 3 <+> Time In 3 <*> Procedure Hernia Repair Incisional Laparoscopic 4 <+> Time In 4 <*> Procedure Hernia Repair Incisional Laparoscopic 5 <+> Time In 5 <*> Procedure Hernia Repair Incisional Laparoscopic 6 <+> Time In 6 <*> Procedure Hernia Repair Incisional Laparoscopic 7 <+> Time In 7 <*> Procedure Hernia Repair Incisional Laparoscopic 8 <+> Time In 8 <*> Procedure Hernia Repair Incisional Laparoscopic 9 <+> Time In 9 <*> Procedure Hernia Repair Incisional Laparoscopic <+> 10 Case Attendee <+> 10 Role Performed <+> 10 Time In <+> 10 Procedure <+> 10 Other Attendee [facility] IntraOp Case Times Entry 1 Patient In Room Time 09/15/20 09:32:00 Out Room Time 09/15/20 11:17:00 Anesthesia Start Time 09/15/20 09:32:00 Stop Time 09/15/20 11:17:00 Surgery / Procedure Times Start Time 09/15/20 09:58:00 Stop Time 09/15/20 11:11:00 Last Modified By: Rosalia Malhotra RN 09/15/20 11:17:46 [facility] IntraOp Case Times Audit 09/15/20 11:17:46 Journeyman Lineman: LAFAVEHM Modifier: LAFAVEHM <+> 1 Out Room Time <+> 1 Stop Time 09/15/20 11:11:38 Journeyman Lineman: LAFAVEHM Modifier: LAFAVEHM <+> 1 Stop Time 09/15/20 10:03:25 Journeyman Lineman: LAFAVEHM Modifier: LAFAVEHM <+> 1 Start Time [facility] IntraOp Cautery Entry 1 ESU Identification Cautery Type Monopolar ESU ID Number [id number] ID Type Hospital Number Cautery Settings Cut Setting 1 Coag Setting 30 ESU Grounding Pad Ground Pad Type Adult Grounding Pad Site Upper Back Grounding Pad Rosalia Malhotra RN Applied By Grounding Pad Site Warm, dry and intact Skin Condition Before Cautery Grounding Pad Site Unchanged Skin Condition After Cautery Last Modified By: Rosalia Malhotra RN 09/15/20 09:54:27 [facility] IntraOp Communication Entry 1 Communication To Family/Significant other Comment START OF PROCEDURE Communication By Rosalia Malhotra RN Date and Time 09/15/20 09:54:00 Last Modified By: Rosalia Malhotra RN 09/15/20 09:54:54 [facility] IntraOp Counts Verification Entry 1 Procedure Hernia Repair Incisional Laparoscopic Count Info Count Type Sponge, Sharps, Instrument, Miscellaneous Counts Verification Baseline/pre-procedure Sequence Count Results Not Applicable Counts Performed By Count Performed By Cox, Kim S, (Scrub) Napper Tender Count Performed By Rosalia Malhotra RN (RN) Last Modified By: Rosalia Malhotra RN 09/15/20 09:55:33 [facility] IntraOp Counts Final Entry 1 Procedure Hernia Repair Incisional Laparoscopic Final Count Info Count Type Sponge, Sharps, Miscellaneous Counts Verification Skin Closure/end of Sequence procedure Count Results Correct, surgeon notified Counts Performed By Count Performed By Kim Cox (Scrub) Napper Tender Count Performed By Rosalia Malhotra RN (RN) Last Modified By: Rosalia Malhotra RN 09/15/20 11:08:24 [facility] IntraOp Counts Final Audit 09/15/20 11:08:24 Journeyman Lineman: JESUS Modifier: ALISHM 1 <*> Procedure Hernia Repair Incisional Laparoscopic 1 <+> Count Performed By (Scrub) 1 <+> Count Performed By (RN) [facility] IntraOp Delays Entry 1 Delay Reason Missing H&P or 24 hr update Duration 10 Minute(s) Last Modified By: Rosalia Malhotra RN 09/15/20 10:40:19 [facility] IntraOp Departure from OR Entry 1 Integumentary Assessment Transfer/Handoff Transfer to PACU Phase I Handoff Method Bedside/Face to face, Phone call, Online nursing summary Post-op Transport Stretcher/Gurney Via Patient Transport Travis Lucero CRNA, Accompanied by OTHER, ATTENDEE #1 Last Modified By: Rosalia Malhotra RN 09/15/20 10:39:53 [facility] IntraOp Dressing and Packing Entry 1 Type Dressing Location OPSITE Wound Dressing Item Skin Closure Glue, ABD dressing pad, Abdominal binder Applied By KATIUSKA POLANCO MD-ALTHEA Last Modified By: Rosalia Malhotra RN 09/15/20 10:39:29 [facility] IntraOp Fire Risk Assessment Entry 1 Fire Info Surgical Site or 0- No Incision Above the Xyphoid Open O2 Source 0- No (Mask or Cannula) Available Ignition 1- Yes (ESU, Laser, Light Source) Fire Risk 1 Assessment Score Fire Score Fire Risk Yes Assessment Complete Fire Risk Rosalia Malhotra, roving can tender Verified By Fire Risk 09/15/20 09:34:00 Assessment Verified Date/Time Fire Risk Standard Fire Yes Safety Precautions Followed Last Modified By: Rosalia Malhotra RN 09/15/20 09:56:13 [facility] IntraOp Fire Risk Assessment Audit 09/15/20 09:56:13 Journeyman Lineman: JESUS Modifier: JESUS <+> 1 Fire Risk Assessment Verified Date/Time [facility] IntraOp General Case Photo Mask Pattern Generator 1 Case Information OR OR 08 [facility] Case Level 1 Room Verified Yes Wound Class III - Contaminated Specialty General Anesthesia Type General ASA Class 2 Diagnosis Preop Diagnosis INSISIONAL HERNIA Postop Same As Preop Yes Postop Diagnosis INSISIONAL HERNIA Last Modified By: Rosalia Malhotra RN 09/15/20 09:56:56 [facility] IntraOp Implant Log Entry 1 Entry 2 Type Implant (Synthetic) Implant (Synthetic) Implant Log Implant Type Mesh Mesh Tissue Implant Type Implant MESH VNTRLGHT [facility] [address]CM MESH [address] ECHO Identification [id number] Description Implant Quantity 1 1 Implant Site Implant Identification Model Number Implant Identification Serial Number Implant [id number] Identification Lot Number Implant Cr Bard:Andrés Reilly Bard:Andrés Identification Signal Supervisor Name: Implant [id number] Identification Catalog Number Implant Size Implant Has an Expiration Date Implant Expiration 01/14/21 04/16/21 Date Wasted Radioactive Material Time Implanted Tissue Implant Continue for Tissue Implant Documentation Tissue Identification Number Graft Prep Per Yes Signal Supervisor Instructions: Tissue Preparation Method: Reconstitution Solution: Reconstitution Solution Lot Number Reconstitution Solution Expiration Date: Thawing Solution Thawing Solution Lot Number Thawing Solution Expiration Date Preparation Materials, Other Preparation Materials, Other Lot Number Preparation Materials, Other Expiration Date Tissue Prepared/Processed By Signal Supervisor N/A Paperwork Completed Implant Type Comment Last Modified By: Rosalia Malhotra RN Montgomery, Hazel, RN 09/15/20 10:39:16 09/15/20 10:56:43 [facility] IntraOp Implant Log Audit 09/15/20 10:56:43 Journeyman Lineman: JESUS Modifier: ESCOBARAVEHM <+> 2 Implant Identification Description <+> 2 Implant Identification Lot Number <+> 2 Implant Identification Signal Supervisor Name: <+> 2 Implant Expiration Date <+> 2 Implant Quantity <+> 2 Implant Identification Catalog Number <+> 2 Implant Type <+> 2 Signal Supervisor Paperwork Completed <+> 2 Type 09/15/20 10:39:16 Journeyman Lineman: JESUS Modifier: JESUS 1 <*> Implant Identification Description MESH VNTRLGHT CIR 20CM [id number] <+> Implant Expiration Date [facility] IntraOp Intraoperative Assessment Entry 1 Handoff Method Online nursing summary Valid History / Yes Physical in Chart Preoperative Yes Checklist Reviewed/Evaluated Allergies Reviewed Yes Patient is Latex No Sensitive Isolation Not applicable Precautions Noted Level of WDL Consciousness (WDL = Alert, Oriented to Person, Place, and Time) Skin Assessment No Verified Present Upon IVs Arrival to OR Last Modified By: Rosalia Malhotra RN 09/15/20 09:57:21 [facility] IntraOp Intraoperative Equipment Entry 1 Entry 2 Type Equipment Equipment Equipment Equipment Ganga Suction System Other ID Number [id number] Setting Intraop Monitoring Electrocardiogram (ECG) Electrode Placement Blood Pressure Source Blood Pressure Location Pulse Oximeter Probe Site Antiembolic Devices Antiembolic Devices Sequential compression device, knee high Antiembolic Device Bilateral Location Antiembolic Device ID Number Antiembolic Device SCD'S ON AND WORKING Setting PRIOR TO INDUCTION Scopes Flexible Endoscopes Used Scope Serial Number/Identificatio n Number Photo/Video Documentation Photo Video Intraop Equipment Comment Last Modified By: Rosalia Malhotra RN Montgomery, Hazel, RN 09/15/20 09:58:32 09/15/20 09:58:32 [facility] IntraOp Medication Admin Entry 1 Medication/Irrigant Marcaine 0.5% w/ epinephrine 1:200,000 30ml vial - [id number] Route of LOCAL Administration Dose Unit of Measure ml Administered By KATIUSKA POLANCO MD-ALTHEA Procedure Irrigation Last Modified By: Rosalia Malhotra RN 09/15/20 10:03:08 [facility] IntraOp Patient Positioning Entry 1 Procedure Hernia Repair Incisional Laparoscopic Body Position Supine Left Arm Position Tucked and padded at side Right Arm Position Tucked and padded at side Left Leg Position Uncrossed, parallel Right Leg Position Uncrossed, parallel Feet Uncrossed Yes Pressure Points Yes Checked Positioning Devices Head Rest, Pad, Elbow, Safety Strap, Thighs, Pad, Heel Positioned By Rosalia Malhotra RN, Travis Lucero CRNA, KATIUSKA POLANCO MD-ALTHEA, BRYANT CAMARGO Position Verified Positioning Yes Verified by Anesthesia Positioning Yes Verified by Surgeon Last Modified By: Rosalia Malhotra RN 09/15/20 10:10:03 [facility] IntraOp Sign In Entry 1 Patient, Site, Yes Procedure Identified Surgical Consent Yes Confirmed Relevant Surgical Yes Documents Available Surgical Site N/A Marked by person performing procedure Anesthesia Machine Yes Check Completed Medication Checks Yes Completed Allergies Yes Airway Difficult Yes Airway/Aspiration Risk Difficult Yes Airway/Aspiration Intervention Equipment Available Blood Loss Risk No Blood Loss No Intervention Equipment Prepared and Ready Blood Identifiers Not applicable Verified Per Policy Hypothermia Risk Yes Warming Measures Yes Taken Last Modified By: Rosalia Malhotra RN 09/15/20 10:09:08 [facility] IntraOp Sign Out Entry 1 RN Confirmation Surgical Yes Procedure(s) Identified Instrument, Sponge Yes and Sharps Counts Correct/Documented Equipment Problems N/A Documented Specimen Labeled N/A Correctly Urinary Catheter Yes Documented in IView Stone Patient Yes Recovery Concerns Reviewed with Anesthesia Provider, Surgeon and RN Stone Patient Yes Management Concerns Reviewed with Anesthesia Provider, Surgeon and RN Safety Checklist Yes Elements Complete? RN Sign Out Rosalia Malhotra RN Signature RN Sign Out 09/15/20 11:17:00 Signature Date/Time Plan of Care Outcome - Fire Risk OUTCOME STATEMENT: Goal met Patient is free from injury related to surgical fire Plan of Care Outcome - Pt Positioning OUTCOME STATEMENT: Goal met Absence of signs and symptoms of positioning injury. Plan of Care Outcome - Skin Prep OUTCOME STATEMENT: Goal met Intraoperative care is consistent with measures to prevent infection Plan of Care Outcome - Xray/Images OUTCOME STATEMENT: N/A Absence of observable signs or symptoms of radiation injury Plan of Care Outcome - Counts OUTCOME STATEMENT: Goal met Absence of signs and symptoms of injury related to extraneous objects Last Modified By: Rosalia Malhotra RN 09/15/20 11:17:42 [facility] IntraOp Sign Out Audit 09/15/20 11:17:42 Journeyman Lineman: JESUS Modifier: LAFAVEHM <+> 1 RN Sign Out Signature <+> 1 RN Sign Out Signature Date/Time [facility] IntraOp Skin Prep Entry 1 Procedure Hernia Repair Incisional Laparoscopic Prescribed N/A Pre-Surgical Prep Completed Prep Area ABDOMEN Intraop Prep Integumentary WDL Assessment WDL Prep Agents Chloraprep Prep by KATIUSKA POLANCO MD-SUR Hair Removal Methods Clipper/Scissors Hair Removal Site PUBIC Hair Removal By KATIUSKA POLANCO MD-ALTHEA Last Modified By: Rosalia Malhotra RN 09/15/20 10:08:07 [facility] IntraOp Surgical Procedures Entry 1 Procedure Hernia Repair Incisional Laparoscopic Additional (LAPAROSCOPIC Procedure INCISIONAL HERNIA Description REPAIR WITH MESH) Primary Procedure Yes Primary Surgeon KATIUSKA POLANCO MD-SUR Start 09/15/20 09:58:00 Stop 09/15/20 11:11:00 Anesthesia Type General Specialty General Wound Class II - Clean-Contaminated Last Modified By: Rosalia Malhotra RN 09/15/20 11:11:44 [facility] IntraOp Surgical Procedures Audit 09/15/20 11:11:44 Journeyman Lineman: LAFAVEHM Modifier: LAFAVEHM <+> 1 Stop 09/15/20 10:47:39 Journeyman Lineman: LAFAVEHM Modifier: LAFAVEHM 1 <*> Procedure Hernia Repair Incisional Laparoscopic [facility] IntraOp Temp Regulation Devices Entry 1 Temp Regulation Temperature Forced Air Warming Regulation Device device, Room temperature, Warm blankets Temperature 43 C Regulation Device Serial/Unit Number Temperature Upper body Regulation Site Temperature Device SET AND MONITORED BY Setting ANESTHESIA Temperature Travis Lucero CRNA Regulation Device Applied by Last Modified By: Rosalia Malhotra RN 09/15/20 10:06:41 [facility] IntraOp Temp Regulation Devices Audit 09/15/20 10:06:41 Journeyman Lineman: LAFAVEHM Modifier: LAFAVEHM <+> 1 Temperature Regulation Device Serial/Unit Number [facility] IntraOP Time Out Entry 1 Procedure to be Hernia Repair Performed Incisional Laparoscopic Time Out Time Out Pause Time 09/15/20 09:58:00 All activity Yes suspended (unless life threatening emergency) Team Verbally Correct patient Confirms Information identity, Correct side and site are marked, Consent form is present and accurate, Agreement on the procedure to be done, Correct patient position, Relevant images/results properly labeled/appropriately displayed, Confirm antibiotics have been administered, Confirm the skin prep has dried, Confirm prosthesis/implant/devic e is present, Performed in location of procedure after prepped/draped Antibiotic Yes Prophylaxis Administered Or In Progress Within the Last 60 Minutes Beta Beatrice N/A Administered Venous Yes Thromboembolism Prophylaxis Required Anticipated Critical Events Surgeon None expected Anesthesia Provider None expected Nursing Assures Sterility of instruments, Equipment concerns or issues, Implant Availability, Other Essential Imaging Yes Labeled and Displayed Last Modified By: Rosalia Malhotra RN 09/15/20 10:06:15 [facility] IntraOP Time Out Audit 09/15/20 10:06:15 Journeyman Lineman: JESUS Modifier: JESUS 1 <+> Surgeon 1 <+> Anesthesia Provider 1 <+> Nursing Assures 1 <+> Essential Imaging Labeled and Displayed 1 <*> Procedure to be Performed Hernia Repair Incisional Laparoscopic Case Comments <None> Finalized By: STEPHANIE BROWN Document Signatures Signed By: Rosalia Malhotra RN 09/15/20 11:17 STEPHANIE BROWN 09/17/20 10:21 STEPHANIE BROWN 09/19/20 15:22 Unfinalized History Date/Time Username Reason for Unfinalizing Freetext Reason for Unfinalizing 09/17/20 10:20 WATTSDR Correct Billing 09/19/20 15:22 [facility]ATTSDR Correct Billing Electronically signed by Rich [facility] Conversion Drum Worker Cerner at 07/05/2022 8:46 AM CDT documented in this encounter Plan of Treatment Not on file documented as of this encounter Visit Diagnoses Not on filedocumented in this encounter Care Teams Food Safety Specialist Relationship Specialty Start Date End Date Mane Castro MD [address] [place] [id number] PCP - General Adolescent Medicine 05/04/22 documented as of this encounter
--- OUTSIDE RECORDS SUMMARY | 2024-08-23 11:14 | XMS_ITS | Encounter Summary ---
Author Organization [employer] Address [address] [place] [address] Care Team Providers Care Loan Workout Officer Name Role Phone Mane Castro MD Primary Care Provider [phone] Encounter Details Date Type Department Care Team (Late st Contact Info) Description 09/16/2020 Transcribed Document [facility] Family [place] [facility] [place] [address] ProviderRayna MD [address] [place] [address] Social History Tobacco Use Types Packs/Day Years Used Date Smoking Tobacco: Never Assessed Comments Unknown Sex and Gender Information Value Date Recorded Sex Assigned at Not on file Legal Sex Female 2:45 PM CDT Gender Identity Not on file Sexual Orientation Not on file documented as of this encounter Miscellaneous Notes * Cerner Conversion Note - Rayna Polo MD - 09/16/2020 3:27 PM CDT Initial Discharge Planning Entered On: 09/16/2020 15:33 EDT Performed On: 09/16/2020 15:27 EDT by MAKAYLA DC RN-Music Engraver Initial Assessment I Previously Documented Living Environment : No qualifying data available. Living Situation : Home Patient Lives With : Spouse Is the Patient a Caregiver at Home? : No Emergency Contact #1 : `Lewis Yin Emergency Contact #1 Phone Number : `[phone] Emergency Contact #1 Relationship : ` Emergency Contact #2 : ` Emergency Contact #2 Phone Number : ` Emergency Contact #2 Relationship : ` Enter Doctors Name : lul vargas Does Patient have PCP Listed? : Yes Patient's Home Caregiver Name/Relationship : `Lewis Yin Patient's Home Caregiver Phone Number : `[phone] Medical Durable Power of Supervisor Hand Silvering Name : yes - MAKAYLA DC RN-Music Engraver - 09/16/2020 15:27 EDT Initial Assessment II Sensory and Motor Deficits : None Current Home Treatments and Equipment : None MAKAYLA DC RN-Music Engraver - 09/16/2020 15:27 EDT Discharge Needs I Anticipated Discharge Date : 09/17/2020 EDT Anticipated Discharge To, CM : Home independently, Home with home health Current Home Treatment/Equipment : Current Home Treatment/Equipment No qualifying data available. Post Acute/Home Treatments : None Documentation Status Complete : Yes MAKAYLA DC RN-Music Engraver - 09/16/2020 15:27 EDT Discharge Needs II Professional Skilled Services : Professional Skilled Services No qualifying data available. Needs Assistance with Transportation : No Discharge Options Discussed with Patient : Discharge transportation, DME, Home Health MAKAYLA DC RN-Music Engraver - 09/16/2020 15:27 EDT Narrative Note Narrative Note : cm spooke to patient about cm role in discharge planning . patient was admitted for lap hernia repair. no consults at this time . patient is independent and denied dme and snf hx. patient has had [facility] in the past . patient denies need for hh at discharge . patient is julian clears and diet will advance as md recommends . family will transport at discharge . DCP: home vs hh MAKAYLA DC RN-Music Engraver - 09/16/2020 15:27 EDT Electronically signed by Rebecca Villanueva Conversion Production Support Supervisor Patricener at 07/05/2022 8:39 AM CDT documented in this encounter Plan of Treatment Not on file documented as of this encounter Visit Diagnoses Not on filedocumented in this encounter Care Teams Loan Workout Officer Relationship Specialty Start Date End Date Mane Castro MD [address] [place] [address] PCP - General Adolescent Medicine 05/04/22 documented as of this encounter
--- OUTSIDE RECORDS SUMMARY | 2024-08-23 11:14 | XMS_ITS | Encounter Summary ---
Author Organization [employer] Address [address] [place] [address] Care Team Providers Care Punchboard Stuffer Name Role Phone Mane Castro MD Primary Care Provider [phone] Encounter Details Date Type Department Care Team (Late st Contact Info) Description 09/15/2020 Transcribed Document [facility] Family Medicine [facility] [place] [address] ProviderRayna MD [address] [place] [address] Social History Tobacco Use Types Packs/Day [...] AM CDT Pain Assessment Entered On: 09/15/2020 12:33 EDT Performed On: 09/15/2020 12:43 EDT by SOPHIA KHAN, RN Intervention Information: HYDROmorphone Performed by SOPHIA KHAN, RN on 09/15/2020 12:13:00 EDT HYDROmorphone,0.5mg IV Push,Left Hand,Pain (Severe 7-10)(c) Pain Assessment Pain Assessment : Follow-up assessment Pain Scale Goal : 4 Pain Scale Used : 0-10 Scale Onset : Gradual Quality : Cramping Pain Radiation : No Pain Worsened by : Breathing, Movement Pain Improved by : Medication Pain Intervention, Drug : Medicated, Oxygen Pain Improved by Intervention : Yes SOPHIA KHAN RN - 09/15/2020 12:32 EDT Pain Scale Intensity : 5 SOPHIA KHAN RN - 09/15/2020 12:32 EDT Image 4 - Images currently included in the form version of this document have not been included in the text rendition version of the form. documented in this encounter Plan of Treatment Not on file documented as of this encounter Visit Diagnoses Not on filedocumented in this encounter Care Teams Punchboard Stuffer Relationship Specialty Start Date End Date Mane Castro MD [address] [place] [address] PCP - General Adolescent Medicine 05/04/22 documented as of this encounter
--- OUTSIDE RECORDS SUMMARY | 2024-08-23 11:14 | XMS_ITS | Encounter Summary ---
Author Organization Healthcare Address [address] [place] [address] Care Team Providers Care Corporate Bond Trader Name Role Phone Mane Castro MD Primary Care Provider [phone] Encounter Details Date Type Department Care Team (Late Contact Info) Description 02/19/2024 Orders Only External Location [address] [place] [address] Tamia Hernandez MD [address] [place], [place] [id number] Social History Tobacco Use Types Packs/Day Years [...] Description 12/04/2024 11:00 AM EDT Office Visit [facility] General Surgery [address], [address] [place] [id number] Garrett Galvin MD [address] [place] [phone] documented as of this encounter Procedures Procedure [...] documented as of this encounter Care Teams Corporate Bond Trader Relationship Specialty Start Date End Date Mane Castro MD [address] [place] [address] PCP - General Internal Medicine 11/23/23 documented as of this encounter
--- OUTSIDE RECORDS SUMMARY | 2024-08-23 11:14 | XMS_ITS | Encounter Summary ---
Author Organization [employer] Address [address] [place] [address] Care Team Providers Care Housekeeper Child Care Name Role Phone Mane Castro MD Primary Care Provider [phone] Encounter Details Date Type Department Care Team (Late st Contact Info) Description 09/15/2020 Transcribed Document [facility] Family Medicine [facility] [place] [address] ProviderRayna MD [address] [place] [address] Social History Tobacco Use Types Packs/Day Years Used Date Smoking Tobacco: Never Assessed Comments Unknown Sex and Gender Information Value Date Recorded Sex Assigned at Not on file Legal Sex Female 2:45 PM CDT Gender Identity Not on file Sexual Orientation Not on file documented as of this encounter Miscellaneous Notes * Cerner Conversion Note - Rayna Polo MD - 09/15/2020 11:54 AM CDT Pain Assessment Entered On: 09/16/2020 17:39 EDT Performed On: 09/16/2020 10:11 EDT by Ira Noe Non Emp RN Intervention Information: acetaminophen-HYDROcodone Performed by Ira Noe Non Emp RN on 09/16/2020 09:11:00 EDT acetaminophen-HYDROcodone,1Tab Oral,Pain (Moderate 4-6) Pain Assessment Pain Assessment : Follow-up assessment Pain Scale Goal : 4 Pain Scale Used : 0-10 Scale Ira Noe Non Emp RN - 09/16/2020 17:39 EDT Pain Scale Intensity : 2 Ira Noe Non Emp RN - 09/16/2020 17:39 EDT Image 4 - Images currently included in the form version of this document have not been included in the text rendition version of the form. Electronically signed by Rebecca Villanueva Conversion Recreational Facilities Motel Manager Cerner at 07/10/2022 1:09 PM CDT documented in this encounter Plan of Treatment Not on file documented as of this encounter Visit Diagnoses Not on filedocumented in this encounter Care Teams Housekeeper Child Care Relationship Specialty Start Date End Date Mane Castro MD [address] [place] [address] PCP - General Adolescent Medicine 05/04/22 documented as of this encounter
--- OUTSIDE RECORDS SUMMARY | 2024-08-23 11:14 | XMS_ITS | Encounter Summary ---
Author Organization Healthcare Address [address] [place] [address] Care Team Providers Care Heading Repairer Name Role Phone Mane Castro MD Primary Care Provider [phone] Encounter Details Date Type Department Care Team (Late Contact Info) Description 08/21/2023 Orders Only External Location [address] [place] [address] Provider, External Social History Tobacco Use Types [...] Description 12/04/2024 11:00 AM EDT Office Visit [facility] General Surgery [address], [address] [place] [address] Garrett Galvin MD [address] [place] [phone] documented as of this encounter Procedures Procedure [...] on filedocumented in this encounter Care Teams Heading Repairer Relationship Specialty Start Date End Date Mane Castro MD [address] [place] [id number] PCP - General Internal Medicine 11/23/23 documented as of this encounter
--- OUTSIDE RECORDS SUMMARY | 2024-08-23 11:14 | XMS_ITS | Encounter Summary ---
Author Organization [employer] Address [address] [place] [address] Care Team Providers Care Game Designer/Creative Director Name Role Phone Mane Castro MD Primary Care Provider [phone] Encounter Details Date Type Department Care Team (Late st Contact Info) Description 09/15/2020 Transcribed Document [facility] Family Medicine [address] [place] [address] ProviderRayna MD [address] [place] [address] Social History Tobacco Use Types Packs/Day Years Used Date Smoking Tobacco: Never Assessed Comments Unknown Sex and Gender Information Value Date Recorded Sex Assigned at Not on file Legal Sex Female 2:45 PM CDT Gender Identity Not on file Sexual Orientation Not on file documented as of this encounter Miscellaneous Notes * Cerner Conversion Note - Rayna Polo MD - 09/15/2020 11:31 AM CDT DATE OF PROCEDURE: 09/15/2020 SURGEON: Garrett Ireland MD PREOPERATIVE DIAGNOSIS: Incarcerated incisional hernia. POSTOPERATIVE DIAGNOSIS: Incarcerated incisional hernia. PROCEDURE PERFORMED: Laparoscopic repair of incarcerated incisional hernia with mesh. FLOAT REMOVER: Juan Coelho. ANESTHESIA: General endotracheal. INDICATIONS: Mohinder Yin is a 70-year-old female who has had a colectomy and colostomy in the past followed by colostomy takedown. She has developed enlarging and symptomatic multicompartmental incisional hernia. FINDINGS: The patient had a fairly large defect above the symphysis pubis with bowel caught up within the defect along with some omentum. There was a separate defect at the umbilicus and above the umbilicus with incarcerated omentum. There was also some incarcerated omentum at the old colostomy site. The repair was performed with Bard Ventralight ST mesh. An 8 inch round patch was placed along the lower aspect of the abdomen and a 4.5 inch circular patch along the upper aspect of the defect. DESCRIPTION OF PROCEDURE: The patient was brought to the operating room where general endotracheal anesthesia was induced. She was sterilely prepped and draped. Preoperative antibiotics were in place. Sequential compression boots were used for DVT prophylaxis. Time-out was performed per protocol. 0.5% Marcaine with epinephrine was placed in each trocar site for postoperative analgesia. A small stab incision was made in the left upper quadrant, Veress needle was placed and CO2 pneumoperitoneum obtained. The Veress needle was removed, and a 5 mm Optiview was then used to enter the peritoneal cavity under direct vision with laparoscope. Additional ports were placed from the periphery of the abdomen to assist with dissection. As noted, there were extensive adhesions covering pretty much entirety of the anterior abdominal wall. There were multiple areas of closely apposed small bowel. There were multiple areas of incarceration with omentum and bowel. A very meticulous and extensive adhesiolysis was then performed using sharp dissection as well as hook cautery. We were able to clear all the adhesions as well as reduce all the hernia defects. There was no apparent bowel injury during the dissection. There was no significant bleeding. We then marked out the area of the hernias. Unfortunately, it extended from just above the symphysis pubis up well into the epigastrium. The ideal mesh would measure approximately 8 x 10 cm in size. This was not available. We used an 8 inch round [address] mesh patch as well as 4.5 inch round. The area was marked out carefully with planning for mesh placement performed. We began our repair with an 8 inch round mesh, which was passed in the peritoneal cavity and unrolled. It was pulled up to the anterior abdominal wall. We had taken down the upper aspect of the bladder to allow for approximation of the mesh to this side of the pubis with nice underlay coverage of the defect. An absorbable tacking device was used to secure the mesh circumferentially using a double ring technique. The echo positioning system was removed. Multiple tacks were placed along the interior of the mesh to bring the mesh up close to the anterior abdominal wall to allow for a good incorporation. Unfortunately, the superior aspect of the mesh barely covered the uppermost defect. We elected to reinforce this repair superiorly with a 4.5 inch round mesh patch. This was passed in the peritoneal cavity and pulled up to the anterior abdominal wall with some overlap. It was again secured using a double ring technique and absorbable tacking device. At this point, we had excellent underlay coverage of all defects. Both echo positioning system had been removed from the body. Meticulous hemostasis was assured. Once again, there was no evidence of bowel injury or bleeding. Trocars were removed and CO2 was released in the peritoneal cavity. Skin incisions were closed with 4-0 Monocryl in subcuticular fashion followed by Dermabond. The patient tolerated the procedure well. There were no immediate complications. Sponge and needle counts were correct. She was taken to recovery room in stable condition. /[id number] Garrett Ireland MD [facility]/AMY / [facility] / SHANIL /[id number] documented in this encounter Plan of Treatment Not on file documented as of this encounter Visit Diagnoses Not on filedocumented in this encounter Care Teams Game Designer/Creative Director Relationship Specialty Start Date End Date Mane Castro MD [address] [place] [id number] PCP - General Adolescent Medicine 05/04/22 documented as of this encounter
--- OUTSIDE RECORDS SUMMARY | 2024-08-23 11:14 | XMS_ITS | Encounter Summary ---
Author Organization [employer] Address [address] [place] [address] Care Team Providers Care Bookkeeper Name Role Phone Mane Castro MD Primary Care Provider [phone] Encounter Details Date Type Department Care Team (Late st Contact Info) Description 09/14/2020 Transcribed Document [facility] [place] [facility] [place] [address] ProviderRayna MD [address] [place] [address] Social History Tobacco Use Types Packs/Day Years Used Date Smoking Tobacco: Never Assessed Comments Unknown Sex and Gender Information Value Date Recorded Sex Assigned at Not on file Legal Sex Female 2:45 PM CDT Gender Identity Not on file Sexual Orientation Not on file documented as of this encounter Miscellaneous Notes * Cerner Conversion Note - Rayna ProviderMD - 09/14/2020 1:20 PM CDT PAT Adult Entered On: 09/14/2020 13:25 EDT Performed On: 09/14/2020 13:20 EDT by Haroon Machado Rn Height and Weight, Clinical Dosing Height Source : Measured Height Entry Format : Dodge Height, Feet : 5 ft(Converted to: 152 cm, 60 Inch) Height, Inches : 7.5 Inch(Converted to: 0 ft 8 Inch, 19.05 cm) Clinical Height : 171.45 cm Weight Source : Standing scale Weight Entry Format : Dodge Clinical Dosing Weight : 111.36 kg Weight, Pounds : 245 lb Body Surface Area (BSA) : 2.22 m2 Body Mass Index : 37.9 kg/m2 (HI) Mchenry Body Weight : 62 kg Francisco, VI W, RN - 09/15/2020 8:32 EDT Health Histories Smoking Status : Former smoker, quit more than 30 days ago Smokeless Tobacco Status : Never Implant/Device Type, Cyber [employer] Systems Specialist and Model : dental bridge Haroon Machado Rn - 09/14/2020 13:20 EDT Social History (As Of: 09/15/2020 08:35:44 EDT) Tobacco: Former smoker, quit more than [...] (Last Updated: 09/14/2020 13:20:44 EDT by Haroon Machado, [place]) Substance Abuse: Drug Use Hx: No. Use in Last 12 Months: No. (Last Updated: 09/14/2020 13:18:48 EDT by Haroon Machado Rn) Infectious Disease History Where are the test results? : In EMR Results Infectious Disease History : Chicken pox/Shingles Has the patient ever been tested for COVID-19? : Yes, Patient stated results Negative VI Singh RN - 09/15/2020 8:32 EDT Date of COVID-19 test known? : Yes Date of COVID-19 Test : 09/11/2020 EDT Does patient have symptoms of COVID-19? : No COVID19 Screening : No Experiencing Infectious Disease Symptoms : Cough Physical contact outside [place] in the last 30 days : No Tuberculosis Symptoms : None Haroon Machado Rn - 09/14/2020 13:20 EDT COVID19 PreProcedure Screening Is this an Emergent or Add on Procedure? : No Date PreProcedure COVID-19 test known? : Yes Date of PreProcedure COVID-19 : 09/11/2020 EDT Has patient been isolated since the test : No Exposed to COVID19 symptoms since test? : No Haroon Machado Rn - 09/14/2020 13:20 EDT Anesthesia/Transfusion History Family History of Anesthesia Reaction : No prior transfusion(s) Blood Transfusion Acceptable to Patient : Yes Transfusion History : Prior anesthesia reaction Type of Anesthesia Reaction : Other: pt reports having panic attacks and morphine terrors or opiod psychosis for 3 months after both prior procedures Family History of Anesthesia Reaction : None Haroon Machado Rn - 09/14/2020 13:20 EDT Functional Assessment Functional ADL Evaluation Index EBN Bathing : Independent (2) Dressing : Independent (2) Toileting : Independent (2) Transferring Bed or Chair : Independent (2) Continence : Independent (2) Feeding : Independent (2) Haroon Machado Rn - 09/14/2020 13:20 EDT ADL Index Score : 12 Haroon Machado Rn - 09/14/2020 13:20 EDT Advance Directive Copy Advance Directive Verified/on Chart : VI Macario RN - 09/15/2020 8:32 EDT Patient has Advance Directive *Q : Yes, Advance Directive with the patient Advance Directive Type : Living will Haroon Machado Rn - 09/14/2020 13:20 EDT Spiritual/Cultural Needs Any Spiritual/Cultural Needs or Requests : No Haroon Machado Rn - 09/14/2020 13:20 EDT [place] Suicide Severity Rating Scale (C-SSRS) CSSRS Past Month Wish to be : No CSSRS Past Month Suicidal Thoughts : No CSSRS Lifetime Suicide Behavior : No Suicide Severity Rating Score : 0 Suicide Severity Rating : No Additional Care Required at this time Haroon Machado Rn - 09/14/2020 13:20 EDT Psychosocial History Currently in Unsafe Situation : No Haroon Machado Rn - 09/14/2020 13:20 EDT General Info Preferred Name : Chloé Arrived From : Home Mode of Arrival on Unit : Ambulatory VI Singh RN - 09/15/2020 8:32 EDT Legal Guardian : Spouse Support Person/Patient Binder Cutter Hand : Yes Support Person/Pt Rep Name : Lewis Yin - Support Person/Pt Rep Contact Information : [phone] Want Family/Rep/Phys Notified of Admit : No Emergency Contact #1 : ` Emergency Contact #1 Phone Number : ` Emergency Contact #1 Relationship : ` Emergency Contact #2 : ` Emergency Contact #2 Phone Number : ` Emergency Contact #2 Relationship : ` Information Obtained From : Patient Primary Language : Malagasy Communication Barrier : None Quill Collector Needed : No Haroon Machado Rn - 09/14/2020 13:20 EDT Alexi Scale Alexi Sensory Perception : No impairment Alexi Moisture : Rarely moist Alexi Activity : Walks frequently Alexi Mobility : No limitation Alexi Nutrition : Adequate Alexi Friction and Shear : No apparent problem Alexi Score : 22 Haroon Machado Rn - 09/14/2020 13:20 EDT Sleep Apnea Risk Assmt BiPAP/CPAP Ordered for Home Use : Yes Hx of Obstructive Sleep Apnea Diagnosis : Yes BiPAP/CPAP Used at Home : Yes Age over 50 Years Old : Yes Gender Male : No Haroon Machado Rn - 09/14/2020 13:20 EDT documented in this encounter Plan of Treatment Not on file documented as of this encounter Visit Diagnoses Not on filedocumented in this encounter Care Teams Bookkeeper Relationship Specialty Start Date End Date Mane Castro MD [address] [place] [id number] PCP - General Adolescent Medicine 05/04/22 documented as of this encounter
--- OUTSIDE RECORDS SUMMARY | 2024-08-23 11:14 | XMS_ITS | Encounter Summary ---
Author Organization [employer] Address [address] [place] [address] Care Team Providers Care Chiller Technician Name Role Phone Mane Castro MD Primary Care Provider [phone] Encounter Details Date Type Department Care Team (Late st Contact Info) Description 09/15/2020 Transcribed Document [facility] Family Medicine [facility] [place] [address] ProviderRayna MD [address] [place] [address] Social History Tobacco Use Types Packs/Day Years Used Date Smoking Tobacco: Never Assessed Comments Unknown Sex and Gender Information Value Date Recorded Sex Assigned at Not on file Legal Sex Female 2:45 PM CDT Gender Identity Not on file Sexual Orientation Not on file documented as of this encounter Miscellaneous Notes * Cerner Conversion Note - Rayna Polo MD - 09/15/2020 11:55 AM CDT Pain Assessment Entered On: 09/17/2020 3:24 EDT Performed On: 09/16/2020 22:01 EDT by Niecy Tucker Rn Intervention Information: traMADol Performed by Niecy Tucker Rn on 09/16/2020 21:01:00 EDT traMADol,50mg Oral,Pain (Moderate 4-6) Pain Assessment Pain Assessment [...] on filedocumented in this encounter Care Teams Chiller Technician Relationship Specialty Start Date End Date Mane Castro MD [address] [place] [address] PCP - General Adolescent Medicine 05/04/22 documented as of this encounter
--- OUTSIDE RECORDS SUMMARY | 2024-08-23 11:14 | XMS_ITS | Encounter Summary ---
Author Organization [employer] Address [address] [place] [address] Care Team Providers Care Cad Specialist Name Role Phone Mane Castro MD Primary Care Provider [phone] Encounter Details Date Type Department Care Team (Late st Contact Info) Description 09/15/2020 Transcribed Document [facility] Family Medicine [facility] [place] [address] ProviderRayna MD [address] [place] [address] Social History Tobacco Use Types Packs/Day [...] Polo MD - 09/15/2020 9:58 AM CDT [facility] Main OR PACU Summary Primary Physician: KATIUSKA POLANCO MD-SUR Finalized Date/Time: 09/15/20 13:17:38 Pt. Name: EARNEST YIN/Sex: 1950 Female Med Rec #: [id number] Physician: KATIUSKA POLANCO MD-SUR Financial #: [id number] Pt. Type: O Room/Bed: ASA/7 Admit/Disch: 09/15/20 08:13:00 - Institution: [facility] Main OR PACU I Case Times Entry 1 In PACU I 09/15/20 11:18:00 Ready for PACU 09/15/20 13:17:00 Discharge Discharge from PACU 09/15/20 13:17:00 I Last Modified By: SOPHIA KHAN RN 09/15/20 13:17:23 [facility] Main OR PACU I Case Times Audit 09/15/20 13:17:23 Aviation Electronic Warfare Operator: [email or web address] Modifier: [email or web address] <+> 1 Ready for PACU Discharge <+> 1 Discharge from PACU I Finalized By: SOPHIA KHAN, RN Document Signatures Signed By: SOPHIA KHAN RN 09/15/20 13:17 Electronically signed by Rich [facility] Conversion Supervisor Ride Assembly Cerner at 07/05/2022 8:50 AM CDT documented in this encounter Plan of Treatment Not on file documented as of this encounter Visit Diagnoses Not on filedocumented in this encounter Care Teams Cad Specialist Relationship Specialty Start Date End Date Mane Castro MD [address] [place] [address] PCP - General Adolescent Medicine 05/04/22 documented as of this encounter
--- OUTSIDE RECORDS SUMMARY | 2024-08-23 11:14 | XMS_ITS | Encounter Summary ---
Author Organization Healthcare Address [address] [place] [address] Care Team Providers Care Health Information Managers Name Role Phone Mane Castro MD Primary Care Provider [phone] Encounter Details Date Type Department Care Team (Latest Contact Info) Description 07/23/2024 Travel Social History Tobacco Use Types Packs/Day Years [...] 12/04/2024 11:00 AM EDT Office Visit [facility] General Surgery [address], [address] [place] [phone] Garrett Galvin MD [address] [place] [phone] documented as of this encounter Visit Diagnoses Not on filedocumented in this encounter Additional Health Concerns Assessment Noted Time A fall risk assessment has been complete d for the patient 11/23/2023 10:08 AM EDT A Body Mass Index follow-up plan has been documented for the patient 11/23/2023 11:39 AM EDT documented as of this encounter Care Teams Health Information Managers Relationship Specialty Start Date End Date Mane Castro MD [address] [place] [id number] PCP - General Internal Medicine 11/23/23 documented as of this encounter
--- OUTSIDE RECORDS SUMMARY | 2024-08-23 11:14 | XMS_ITS | Clinical Summary ---
Author Organization [facility] Address [address] [place] [phone] Phone Care Team Providers Care Fern Gatherer Name Role Phone Chris SCHULTZ, Milan Andrew [ ] Conditions or Problems Problem Name Problem Code Onset Date Status Entry Date Provider Comment Standard Description Annotate Diverticulitis of large intestine with perforation and abscess without bleeding K57.20 (ICD-10-C M) 04/24 Active 04/24 Laura Glez Diverticulitis of large intestine with perforation and abscess without bleeding Primary pulmonary HTN 39279987 (SNOMED CT) 04/24 Active 04/24 Laura Glez Pulmonary arterial hypertension Medications Medication Instructions Start Date Stop Date Generic Name [facility] Provider INVANZ 1 GM INJECTION SOLUTION RECONSTITUTED Invanz 1G IV Q24hrs- [facility] ERTAPENEM SODIUM [id number] Shilpa Murphy INVANZ 1 GM INJECTION SOLUTION RECONSTITUTED [facility] [id number] Shilpa Murphy BUMETANIDE 1 MG TABS Take 1 tablet by mouth daily BUMETANIDE [id number] Dori Boss KETOROLAC TROMETHAMINE 10 MG TABS Take 1 tablet by mouth daily KETOROLAC TROMETHAMINE [id number] Dori Boss LEVOFLOXACIN 500 MG TABS Take 1 tablet by mouth daily LEVOFLOXACIN 14562402757 Dori Boss MELOXICAM 7.5 MG TABS Take 1 tablet by mouth daily MELOXICAM 50421107528 Dori Boss ONDANSETRON HCL 4 MG TABS Take 1 tablet by mouth daily ONDANSETRON HCL 54036545740 Dori Boss KLOR-CON M10 10 MEQ CR-TABS Take one (1) tablet by mouth twice a day POTASSIUM CHLORIDE HERMELINDA ER [id number] Dori Boss Medications Administered No information available. Allergies, Adverse [...] Entry Date CPT-DC Discontinue IV antibiotics 2 CPT-65260 CMP CPT-14574 CBC w/o Differential CPT-DC Discontinue IV antibiotics 2 CPT- stat weekly Stat Weekly Labs CPT-wpc Weekly PICC Line Care 04/29 CPT-ca Continue IV antibiotics 2018 CPT-03703 CMP CPT-42248 CBC w/o Differential CPT-ca Continue IV antibiotics 2018 CPT- stat weekly Stat Weekly Labs CPT-ca Continue IV antibiotics 2018 CPT-cwl Weekly Labs (Continue) 02/22 CPT-14010 CMP CPT-77191 CBC w/o Differential CPT-ca Continue IV antibiotics [...] Weight Measured 228.2 [lb_av] weight E& M Weight Measured 228.2 [lb_av] weight E& M Height 67 [in_us] height E&M Immunizations No information available. Advance Directives No information available.
--- NOTE | 2024-08-23 11:15 | CA_ITS ---
APPROVED REPORT EXAM: Comprehensive 2D, Doppler, and color-flow Echocardiogram Firestop/Containment Worker: BRANDON William, RVS Ht: 5 ft 7 in Wt: 215lbs BSA: 2.09 BP: 146/92 mmHg Indications: Pulmonary Hypertension, HTN, Pre-op 2D Dimensions Left Atrium 2.99 cm F: 2.7 - 3.8 M-Mode Dimensions RVDd 3.44 cm (0.9-2.6) LA Diam 3.92 cm (1.9-4.0) LVDd 3.91 cm (3.5-5.7) LVDs 2.72 cm (3.5-5.7) IVSd 1.40 cm (0.6-1.1) PWd 1.10 cm (0.6-1.1) EF (Teich) 58.50% EPSs 0.17 cm FS 30.40% EDV (Teich) 66.30 mL TAPSE 2.13 (<1.7) ESV (Teich) 27.50 mL LV Diastology E Decel Time 278 (160-240 msec) E/A Ratio 0.70 MED A' 11.30 cm/s LAT A' 11.70 cm/s Aortic Valve ERIKA Index 1.43 cm2/m2 AoV Peak Tommy. 125.0 (50-130 cm/s) AI PHT 790.00 ms AO Peak GR. 6.20 mmHg AO Mean GR. 3.20 (<5 mmHg) AO VTI 24.1 (18-25 cm) ERIKA (VTI) 3.06 (2.5-4.5 cm2) Mitral Valve MV A Velocity 96.0 (40-130 cm/s) E/A Ratio 0.70 Pulmonary Valve CO End VMAX 159.0 cm/s Tricuspid Valve TR P. Velocity 256.00 cm/s RAP Estimate 10.00 mmHg RVSP 36.30 mmHg Left Ventricle The left ventricle is normal size. The left ventricular systolic function is normal. The left ventricular ejection fraction is within the normal range. There is increased LV wall thickness. There is normal LV segmental wall motion. The left ventricular diastolic function is normal. LVEF is 55%. Right Ventricle The right ventricle is normal size. The right ventricular systolic function is normal. Atria Left atrium is mildly dilated. The right atrium size is normal. There is no Doppler evidence of interatrial shunt. Aortic Valve The aortic valve is normal in structure. There is no aortic valvular stenosis. Mild aortic regurgitation. Mitral Valve The mitral valve is normal in structure. No evidence of mitral valve stenosis. Mild mitral regurgitation. Tricuspid Valve Tricuspid valve is grossly normal in structure and function. Mild tricuspid regurgitation. RVSP is 25-30 mmHg. Pulmonic Valve The pulmonary valve is normal in structure. Trace pulmonic regurgitation. Great Vessels The aortic root is normal in size. IVC is normal in size and collapses >50% with inspiration. Pericardium There is no pericardial effusion. Other Information Study Quality: Fair Conclusion Normal biventricular systolic function. Mild LA dilation. Mild MR, mild AI, mild TR. Electronically signed by : Crystal Rao MD 09/01/2024 19:47:11
--- OUTSIDE RECORDS SUMMARY | 2024-08-23 11:15 | XMS_ITS | Encounter Summary ---
Author Organization [email or web address] Address [address] [place] [address] Care Team Providers Care Corner Trimmer Operator Name Role Phone Mane Castro MD Primary Care Provider [phone] Encounter Details Date Type Department Care Team (Late st Contact Info) Description 09/16/2020 Transcribed Document [facility] Family Medicine [facility] [place] [address] ProviderRayna MD [address] [place] [address] Social History Tobacco Use Types Packs/Day Years Used Date Smoking Tobacco: Never Assessed Comments Unknown Sex and Gender Information Value Date Recorded Sex Assigned at Not on file Legal Sex Female 2:45 PM CDT Gender Identity Not on file Sexual Orientation Not on file documented as of this encounter Miscellaneous Notes * Cerner Conversion Note - Rayna Polo MD - 09/16/2020 2:06 PM CDT UM Authorization Entered On: 09/16/2020 14:06 EDT Performed On: 09/16/2020 14:06 EDT by VISHAL HIGGINS RN Primary Insurance Authorization Authorization and Policy Numbers : Insurance 1 Health Plan: [employer] PPO Policy Number: [id number] Authorization Number: NPR Insurance Primary Name : Health Plan: [employer] CHO[employer] PPO Policy Number: [id number] Authorization Status-Primary : No precert required Reference Number-Primary : NPR Authorized Service Begin Date-Primary : 09/15/2020 EDT Authorization Comments-Primary : Ref to Xpas Historical Authorization Comments-Primary : Comment 1: NPR per STAR notes (VISHAL HIGGINS RN 09/16/2020 11:53) VISHAL HIGGINS RN - 09/16/2020 14:06 EDT Electronically signed by Rich [facility] Conversion Estate Planning Director Cerner at 07/05/2022 9:05 AM CDT documented in this encounter Plan of Treatment Not on file documented as of this encounter Visit Diagnoses Not on filedocumented in this encounter Care Teams Corner Trimmer Operator Relationship Specialty Start Date End Date Mane Castro MD [address] [place] [address] PCP - General Adolescent Medicine 05/04/22 documented as of this encounter
--- OUTSIDE RECORDS SUMMARY | 2024-08-23 11:15 | XMS_ITS | Encounter Summary ---
Author Organization [email or web address] Address [address] [place] [address] Care Team Providers Care Blood Bank Laboratory Professional Name Role Phone Mane Castro MD Primary Care Provider [phone] Encounter Details Date Type Department Care Team (Late st Contact Info) Description 09/16/2020 Transcribed Document [facility] [place] Medicine [facility] [place] [address] ProviderRayna MD [address] [place] [address] Social History Tobacco Use Types Packs/Day Years Used Date Smoking Tobacco: Never Assessed Comments Unknown Sex and Gender Information Value Date Recorded Sex Assigned at Not on file Legal Sex Female 2:45 PM CDT Gender Identity Not on file Sexual Orientation Not on file documented as of this encounter Miscellaneous Notes * Cerner Conversion Note - Rayna ProviderMD - 09/16/2020 5:00 AM CDT Chart Check - Review Order Profile Entered On: 09/16/2020 4:59 EDT Performed On: 09/16/2020 5:00 EDT by Duane Flanagan RN-PATIENT CARE BEDSIDE NON-EXEMPT Chart Check Powerplans Initiated/Discontinued as Appropriate : Yes All Active Orders Reviewed : Yes Duane Flanagan RN-PATIENT CARE BEDSIDE NON-EXEMPT - 09/16/2020 4:59 EDT documented in this encounter Plan of Treatment Not on file documented as of this encounter Visit Diagnoses Not on filedocumented in this encounter Care Teams Blood Bank Laboratory Professional Relationship Specialty Start Date End Date Mane Castro MD [address] [place] [address] PCP - General Adolescent Medicine 05/04/22 documented as of this encounter
--- OUTSIDE RECORDS SUMMARY | 2024-08-23 11:15 | XMS_ITS | Encounter Summary ---
Author Organization [employer] Address [address] [place] [address] Care Team Providers Care Internet Retailer Name Role Phone Mane Castro MD Primary Care Provider [phone] Encounter Details Date Type Department Care Team (Late st Contact Info) Description 09/17/2020 Transcribed Document [facility] Family Medicine [facility] [place] [address] ProviderRayna MD [address] [place] [address] Social History Tobacco Use Types Packs/Day Years Used Date Smoking Tobacco: Never Assessed Comments Unknown Sex and Gender Information Value Date Recorded Sex Assigned at Not on file Legal Sex Female 2:45 PM CDT Gender Identity Not on file Sexual Orientation Not on file documented as of this encounter Miscellaneous Notes * Cerner Conversion Note - Rayna Polo MD - 09/17/2020 10:03 AM CDT Final Discharge Planning Entered On: 09/17/2020 10:05 EDT Performed On: 09/17/2020 10:03 EDT by JOANN PEACOCK RN-Parachute Packer Final Discharge Planning Discharge Arrangements : Patient Post-Acute Information Patient Name: EARNEST YIN Gender: Female : 52 Age: 70 Years No Post-Acute Placement(s) Listed No Post-Acute Service(s) Listed No [place] Referral(s) Listed Transportation Needs : Family/Friend Follow Up Appointment Scheduled : Yes Is Patient High/Moderate Readmission Risk? : No Patient/Family Notified of Plan : Yes Is Patient Ready for Discharge? : Yes Physician Notified Patient is Ready for Discharge? : Yes Discharge To Care Management : Home/Residential/Jail or Self Care -01 JOANN PEACOCK RN-Parachute Packer - 09/17/2020 10:03 EDT Final Narrative Note Final Narrative Note : Discharged to home, agreeable. No needs noted at this time. JOANN PEACOCK RN-Parachute Packer - 09/17/2020 10:03 EDT documented in this encounter Plan of Treatment Not on file documented as of this encounter Visit Diagnoses Not on filedocumented in this encounter Care Teams Internet Retailer Relationship Specialty Start Date End Date Mane Castro MD [address] [place] [address] PCP - General Adolescent Medicine 05/04/22 documented as of this encounter
--- OUTSIDE RECORDS SUMMARY | 2024-08-23 11:15 | XMS_ITS | Encounter Summary ---
Author Organization [facility] Address [address] [place] [address] Care Team Providers Care Video Software Engineer Name Role Phone Mane Castro MD Primary Care Provider [phone] Reason for Referral * Consultation (Routine) - Closed Specialty Diagnoses / Procedures Referred By Contsue t Referred To Contact General, Endocrine & Minimally Invasive Surgery / General Surgery Diagnoses Incisional hernia, without obstruction or gangrene Ese Barone, MANAGER SYSTEM [address] [place] [address] Phone: tel: fax: Referral ID Status Reason Start Date Expiration Date V isits Requested Visits Authorized [id number] Closed Specialty Services Required 06/27/2023 12/26/2024 1 1 Encounter Details Date Type Department Care Team (Late st Contact Info) Description 06/27/2023 [facility] [address] [place] [address] Ese Barone, MANAGER SYSTEM [address] [place] [address] Incisional hernia, without obstruction or gangrene (Primary Dx) Social History Tobacco Use Types Packs/Day Years [...] Description 12/04/2024 11:00 AM EDT Office Visit [facility] General Surgery [address], [address] [place] [address] Garrett Galvin MD [address] [facility] [address] [place] [address] Scheduled Referrals Name Type Priority Associated Diagnoses Orde r Schedule Ambulatory Referral to General Surgery ([facility]) Outpatient Referral Routine Incisional hernia, without obstruction or gangrene Expected: 06/27/2023 (Approximate), Expires: 12/26/2024 documented as of this encounter Visit Diagnoses Diagnosis Incisional hernia, without obstruction or gangrene- Primary documented in this encounter Care Teams Video Software Engineer Relationship Specialty Start Date End Date Mane Castro MD [address] [place] [address] PCP - General Internal Medicine 11/23/23 documented as of this encounter
--- OUTSIDE RECORDS SUMMARY | 2024-08-23 11:15 | XMS_ITS | Encounter Summary ---
Author Organization [email or web address] Address [address] [place] [address] Care Team Providers Care Wrist Liner Name Role Phone Mane Castro MD Primary Care Provider [phone] Encounter Details Date Type Department Care Team (Late st Contact Info) Description 09/16/2020 Transcribed Document [facility] Family [place] [address] ProviderRayna MD [address] [place] [address] Social History Tobacco Use Types Packs/Day Years Used Date Smoking Tobacco: Never Assessed Comments Unknown Sex and Gender Information Value Date Recorded Sex Assigned at Not on file Legal Sex Female 2:45 PM CDT Gender Identity Not on file Sexual Orientation Not on file documented as of this encounter Miscellaneous Notes * Cerner Conversion Note - Rayna Polo MD - 09/16/2020 11:53 AM CDT UM Authorization Entered On: 09/16/2020 11:54 EDT Performed On: 09/16/2020 11:53 EDT by VISHAL HIGGINS RN Primary Insurance Authorization Authorization and Policy Numbers : Insurance 1 Health Plan: [employer] PPO Policy Number: [id number] Authorization Number: NPR Insurance Primary Name : Health Plan: [employer] CHO[employer] PPO Policy Number: [id number] Authorization Status-Primary : No precert required Reference Number-Primary : NPR Authorized Service Begin Date-Primary : 09/15/2020 EDT Authorization Comments-Primary : NPR per STAR notes Historical Authorization Comments-Primary : No Authorization Comments Found VISHAL HIGGINS RN - 09/16/2020 11:53 EDT Electronically signed by Rich [facility] Conversion Towel Sewer Cerner at 07/05/2022 9:04 AM CDT documented in this encounter Plan of Treatment Not on file documented as of this encounter Visit Diagnoses Not on filedocumented in this encounter Care Teams Wrist Liner Relationship Specialty Start Date End Date Mane Castro MD [address] [place] [address] PCP - General Adolescent Medicine 05/04/22 documented as of this encounter
--- OUTSIDE RECORDS SUMMARY | 2024-08-23 11:15 | XMS_ITS | Clinical Summary ---
Author Organization [facility] Address [address] [place] [address] Care Team Providers Care Store Administrative Assistant Name Role Phone Mane Castro MD Primary Care Provider [phone] Allergies Active Allergy Reactions Criticality Noted Date Comments Furosemide Itching,Rash Medium 05/06/2019 Losartan Itching Medium 05/06/2019 Morphine Other - please docum ent in the comment field Low 01/24/2023 Altered mental status Penicillins Angioedema,Swelling High 02/16/2019 face Sulfa Drugs Rash Low 07/13/2023 Medications bumetanide (Bumex) 1 MG tablet Take 1.5 tablets (1.5 mg) by mouth 1 (one) time each day. Active Evolocumab 140 MG/ML solution auto-injector 1 mL (140 mg). 02/06/2023 Active famotidine (Pepcid) 40 MG tablet 1 tablet (40 mg). 07/28/2023 Active hydroCHLOROthia zide (HYDRODiuril) 25 MG tablet Take 1 tablet (25 mg) by mouth 1 (one) time each day. 11/15/2023 Active lisinopril 20 MG tablet Take 1 tablet (20 mg) by mouth 1 (one) time each day. 11/09/2023 Active Meclizine HCl 25 MG chewable tablet Chew 25 mg. Active meloxicam (Mobic) 15 MG tablet Take 1 tablet (15 mg) by mouth 1 (one) time each day. Active metFORMIN (Glucophage) 500 MG tablet 1 tablet (500 mg). 07/26/2023 Active ondansetron (Zofran) 4 MG tablet 07/20/2023 Active PARoxetine (Paxil) 20 MG tablet Take 1 tablet (20 mg) by mouth 1 (one) time each day. Active potassium chloride CR (Klor-Con) 10 MEQ ER tablet 1 tablet (10 mEq). 07/27/2023 Active rivaroxaban (Xarelto) 20 MG tablet 1 tablet (20 mg). 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 Encounters Date Type Department Care Team Description 07/24/2024 11:30 AM EDT Office Visit [facility] General Surgery [address], [address]st [place] [address] Erica Alicea APRN Anticoagulated (Primary Dx); Diabetes 1.5, managed as type 2 (CMS/HCC); Pulmonary HTN (CMS/HCC); Recurrent incisional hernia 07/24/2024 Travel 07/23/2024 Travel from Last 3 Months Family History Medical History Relation Name Comments Arthritis Mother mom and Dad / grandp[arents COPD Mother mom and Dad / grandp[arents Heart disease Mother mom and Dad / grandp[arents Hyperlipidemia Mother mom and Dad / grandp[arent s Hypertension Mother mom and Dad / grandp[arents Vision loss Mother mom and Dad / grandp[arents Relation Name Status Comments Mother mom and Dad / grandp[arents Social History Tobacco Use Types Packs/Day Years [...] Mass Index 34.65 07/24/2024 10:58 AM EDT Plan of Treatment Upcoming Encounters Date Type Department Care Team (Late st Contact Info) Description 12/04/2024 11:00 AM EDT Office Visit [facility] General Surgery [address], [address] [place] [address] Garrett Galvin MD [address] [address] Health Maintenance Due Date Last Done Comments [facility]-Bone Density Scan 1950 [facility]-Hepatitis C Screening 1950 [facility]-Medicare Annual Wellness (AWV) 1950 [facility]-/Child/Adol SDOH Screenings 1951 Diabetes: Dental Exam 1961 [facility]- SDOH Screenings 1969 [facility]-Adult SDOH Screenings 1969 [facility]-DTaP,Tdap,and Td Vaccines (1 - Tdap) 1970 [facility]-Zoster Vaccines (1 of 2) 2001 [facility]-Diabetes: Hemoglobin A1C 11/03/2019 05/06/2019 [id number] Vaccine ( season) 2024 12/07/2023, 07/20/2021, 12/16/2020, Additional history exists [facility]-Breast Cancer Screening 07/05/202406/18, 04/05/2022, 01/24/2022, Additional history exists [facility]-Depression Screening 11/22/2024 11/23/2023 [facility]-Hepatitis A Vaccines Aged Out 08/06/2018, 12/19 No longer eligible based on patient's age to complete this topic FOBT Discontinued 03/20/2019 [facility]-Colorectal Cancer Screening Discontinued [facility]-Influenza Vaccine Completed 12/07/2023 , 12/08/2020, 12/30/2019, Additional history exists [facility]-Pneumococcal Vaccine: 50+ Years Completed 06/27/2024, 10/15/2018, 05/05/2016 [facility]-RSV Vaccine: 60+ Years or Completed 06/27/2024 [facility]-Obesity Intervention Completed 07/24/2024, 07/2023 CT Colonography Discontinued Colonoscopy Discontinued FIT-DNA Discontinued FIT Discontinued HPV Vaccines Aged Out No longer eligi ble based on patient's age to complete this topic Sigmoidoscopy Discontinued [facility]-HIB Vaccines Aged Out No longer e ligible based on patient's age to complete this topic [facility]-IPV Vaccines Aged Out No longer e ligible based on patient's age to complete this topic [facility]-Rotavirus Vaccines Aged Out No lo nger eligible based on patient's age to complete this topic Insurance [facility] MEDICARE Care Teams Store Administrative Assistant Relationship Specialty Start Date End Date Mane Castro MD [address] [place] [address] PCP - General Internal Medicine 11/23/23
--- OUTSIDE RECORDS SUMMARY | 2024-08-23 11:15 | XMS_ITS | Encounter Summary ---
Author Organization [employer] Address [address] [place] [address] Care Team Providers Care Interior Design Coordinator Name Role Phone Mane Castro MD Primary Care Provider [phone] Encounter Details Date Type Department Care Team (Late st Contact Info) Description 09/17/2020 Transcribed Document [facility] [place] [address] ProviderRayna MD [address] [place] [address] Social History Tobacco Use Types Packs/Day Years Used Date Smoking Tobacco: Never Assessed Comments Unknown Sex and Gender Information Value Date Recorded Sex Assigned at Not on file Legal Sex Female 2:45 PM CDT Gender Identity Not on file Sexual Orientation Not on file documented as of this encounter Miscellaneous Notes * Cerner Conversion Note - Rayna Polo MD - 09/17/2020 9:28 AM CDT Patient Resource Center Entered On: 09/17/2020 9:29 EDT Performed On: 09/17/2020 9:28 EDT by Lisa Overton, Hydraulic Governor Assembler Patient Resource Center Provider Status : EST Other Established Provider Name : MINESH CEE Patient Phone Number : [phone] Patient Insurance Type : Medicare Source of Referral : Case management Location of Patient : Case management referral Primary Care Scheduled : No Specialty Care Scheduled : Yes Specialty Type Scheduled1 : [facility] General Surgery [facility] General Surgery Provider Name : KATIUSKA IRELAND [facility] [place] Appointment Date/Time : 09/30/2020 14:30 EDT Qualify for Diabetes and/or Nutrition Referral : No Wound Care Appointment Made : No Why Patient Visited ED- Specialty spent : Other How Patient Arrived at ED : Other Primary Language : Romanian Patient Resource Center Comment : Patient needs follow up appointment. Called office and scheduled zoom appointment with Dr. Ireland Follow Up Needed : No Lisa Overton, Hydraulic Governor Assembler - 09/17/2020 9:28 EDT Electronically signed by [facility] Conversion Geriatrician Cerner at 07/05/2022 8:54 AM CDT documented in this encounter Plan of Treatment Not on file documented as of this encounter Visit Diagnoses Not on filedocumented in this encounter Care Teams Interior Design Coordinator Relationship Specialty Start Date End Date Mane Castro MD [address] [place] [address] PCP - General Adolescent Medicine 05/04/22 documented as of this encounter
--- OUTSIDE RECORDS SUMMARY | 2024-08-23 11:15 | XMS_ITS | Encounter Summary ---
Author Organization [employer] Address [address] [place] [address] Care Team Providers Care Geriatrics Physician Name Role Phone Mane Castro MD Primary Care Provider [phone] Encounter Details Date Type Department Care Team (Late st Contact Info) Description 09/16/2020 Transcribed Document [facility] [place] Family Medicine [facility] [place] [address] ProviderRayna MD [address] [place] [id number] Social History Tobacco Use Types Packs/Day Years Used Date Smoking Tobacco: Never Assessed Comments Unknown Sex and Gender Information Value Date Recorded Sex Assigned at Not on file Legal Sex Female 2:45 PM CDT Gender Identity Not on file Sexual Orientation Not on file documented as of this encounter Miscellaneous Notes * Patricener Conversion Note - Rayna Polo MD - 09/16/2020 2:00 AM CDT Ground Support Equipment Assembler Details Entered On: 09/16/2020 2:17 EDT Performed On: 09/16/2020 2:00 EDT by Duane Flanagan RN-PATIENT CARE BEDSIDE NON-EXEMPT Order Details Transport Mode Order Detail : Stretcher/Gurney Isolation Precautions Order Detail : Standard Precautions Order Detail : 0 IV Order Detail : 1 Oxygen Order Detail : 1 Nurse Collect Order Detail : 0 Lift/Transfer : Minimal Central Line Order Detail : No Room Service : Appropriate Arterial Line : No Patient Needs Meds Crushed/Liquid : No Duane Flanagan RN-PATIENT CARE BEDSIDE NON-EXEMPT - 09/16/2020 2:16 EDT documented in this encounter Plan of Treatment Not on file documented as of this encounter Visit Diagnoses Not on filedocumented in this encounter Care Teams Geriatrics Physician Relationship Specialty Start Date End Date Mane Castro MD [address] [place] [id number] PCP - General Adolescent Medicine 05/04/22 documented as of this encounter
--- OUTSIDE RECORDS SUMMARY | 2024-08-23 11:15 | XMS_ITS | Encounter Summary ---
Author Organization [employer] Address [address] [place] [address] Care Team Providers Care Petroleum Production Engineer Name Role Phone Mane Castro MD Primary Care Provider [phone] Encounter Details Date Type Department Care Team (Late st Contact Info) Description 09/17/2020 Transcribed Document [facility] [place] Family [place] [facility] [place] [address] ProviderRayna MD [address] [place] [id number] Social History Tobacco Use Types Packs/Day Years Used Date Smoking Tobacco: Never Assessed Comments Unknown Sex and Gender Information Value Date Recorded Sex Assigned at Not on file Legal Sex Female 2:45 PM CDT Gender Identity Not on file Sexual Orientation Not on file documented as of this encounter Miscellaneous Notes * Cerner Conversion Note - Rayna ProviderMD - 09/17/2020 10:47 AM CDT Nursing Discharge Summary Entered On: 09/17/2020 10:48 EDT Performed On: 09/17/2020 10:47 EDT by Priscilla Mcneil Virtual cable television program director Documentation Patient Disposition, General : Discharge Discharge To : Home with ambulatory/outpatient follow-up Mode Of Departure, General Discharge : Private vehicle, Wheelchair Accompanied By, Discharge : Spouse Discharge Instructions Reviewed With, Opportunity For Questions Given : Patient, Spouse Patient Education Completed : Yes Teaching Method : Explanation, Printed materials Teaching Evaluation : Verbalizes understanding Education Comment : meds, follow ups, conditions, procedures, restrictions Priscilla Mcneil Virtual RN - 09/17/2020 10:47 EDT documented in this encounter Plan of Treatment Not on file documented as of this encounter Visit Diagnoses Not on filedocumented in this encounter Care Teams Petroleum Production Engineer Relationship Specialty Start Date End Date Mane Castro MD [address] [place] [id number] PCP - General Adolescent Medicine 05/04/22 documented as of this encounter
--- OUTSIDE RECORDS SUMMARY | 2024-08-23 11:15 | XMS_ITS | Encounter Summary ---
Author Organization [employer] Address [address] [place] [address] Care Team Providers Care Nuclear Operator Name Role Phone Mane Castro MD Primary Care Provider [phone] Encounter Details Date Type Department Care Team (Late st Contact Info) Description 09/17/2020 Transcribed Document [facility] [place] [facility] [address] [place] [id number] ProviderRayna MD [address] [place] [id number] Social History Tobacco Use Types Packs/Day Years Used Date Smoking Tobacco: Never Assessed Comments Unknown Sex and Gender Information Value Date Recorded Sex Assigned at Not on file Legal Sex Female 2:45 PM CDT Gender Identity Not on file Sexual Orientation Not on file documented as of this encounter Miscellaneous Notes * Cerner Conversion Note - Rayna Polo MD - 09/17/2020 10:28 AM CDT [facility] [place] [address] EARNEST YIN :1950 Visit Time:09/15/2020 Your Visit Summary Your Care Team Admitting Physician - KATIUSKA POLANCO MD-SUR Attending Physician - KATIUSKA POLANCO MD-SUR Primary Care Physician - MINESH CEE NP-[facility] Referring Physician - KATIUSKA POLANCO MD-SUR Your Diagnosis Incisional hernia without obstruction or gangrene, Incisional hernia without obstruction or gangrene Discharge Vitals Temperature 36.4 ??C Heart Rate (Monitored) 58 Respiratory Rate 16 Blood Pressure 136/68 What to do next Instructions From Your Care Team Activity as tolerated. No heavy lifting >20lbs, bending, pulling, stooping for 6 weeks. May shower, but no tub baths for 2 weeks. Keep operative site clean and dry. Resume regular diet as tolerated. Follow-Up Appointments Follow Up with KATIUSKA POLANCO When 09/30/2020 02:30 PM EDT Comments Joey surgical follow up. Appointment has been made. Where: [address] [facility] [address] [place] [id number]- Medications What How Much When Instructions Next Dose acetaminophen-hydrocodone (acetaminophen-HYDROcodone 325 mg-5 mg oral tablet) 1-2 tabs Oral Every 6 Hours as needed for for pain Pickup at [facility] # as needed ondansetron (Zofran 4 mg oral tablet) 1 Tablet(s) Oral Every 8 Hours as needed for Nausea Pickup at [facility] # as needed bumetanide (bumetanide 1 mg oral tablet) 1.5 Tablet(s) Oral Every Day you have not had this today dilTIAZem (DilTIAZem (Eqv-Cardizem CD) 120 mg/ 24 hours oral capsule, extended release) 1 Capsule(s) Oral Every Day at bedtime meloxicam (meloxicam 15 mg oral tablet) 1 Tablet(s) Oral Every Day at bedtime multivitamin with minerals (Calcium, Magnesium and Zinc oral tablet) 1 Tablet(s) Oral Every Day you have not had this today PARoxetine (PARoxetine 20 mg oral tablet) 1 Tablet(s) Oral Every Day tomorrow potassium chloride (potassium chloride 10 mEq oral capsule, extended release) 1 Capsule(s) Oral Every Day you have not had this today Pharmacy Information [facility] #: [address] [phone] Take your medications faithfully. Do NOT skip medication. Do NOT stop taking medications without the direction of a physician. Carry a list of your medications with you at all times, and take this medication list with you to your first follow up visit. Report any side effects. Avoid herbal remedies unless discussed with your physician. As part of your treatment plan, your physician may have prescribed a limited course of a controlled substance. This medication may be given to help people with moderate or severe pain or for other medical conditions, but there are risks involved with treatment. Common side effects may include nausea, constipation, drowsiness, sweating, itching, dry mouth, and rash. More serious side effects may include cognitive and motor impairment, like problems with thinking, concentrating, alertness, and movement (e.g. slowed reflexes), and driving and operating heavy machinery can be dangerous. It is important for you to talk to your physician if you have these side effects or questions. These controlled substances can produce physical dependence and be habit-forming if taken for an extended period of time, which means that the body has gotten used to them and may experience withdrawal symptoms if they are abruptly stopped. Withdrawal symptoms can include runny nose, sweating, goose bumps, diarrhea, abdominal cramping, rapid heartbeat, difficulty sleeping, and nervousness. Please dispose of unused and medications per your retail pharmacy guidance. Allergies Lasix (Rash, Itching) losartan (Rash, Itching) penicillin (Itching, Facial swelling) Immunizations This Visit No Immunizations Found Education Materials Inguinal Hernia, Adult An inguinal hernia is when fat or your intestines push through a weak spot in a muscle where your leg meets your lower belly (groin). This causes a rounded lump (bulge). This kind of hernia could also be: ??? In your scrotum, if you are male. ??? In folds of skin around your vagina, if you are female. There are three types of inguinal hernias. These include: ??? Hernias that can be pushed back into the belly (are reducible). This type rarely causes pain. ??? Hernias that cannot be pushed back into the belly (are incarcerated). ??? Hernias that cannot be pushed back into the belly and lose their blood supply (are strangulated). This type needs emergency surgery. If you do not have symptoms, you may not need treatment. If you have symptoms or a large hernia, you may need surgery. Follow these instructions at home: Lifestyle ??? Do these things if told by your doctor so you do not have trouble pooping (constipation): ? Drink enough fluid to keep your pee (urine) pale yellow. ? Eat foods that have a lot of fiber. These include fresh fruits and vegetables, whole grains, and beans. ? Limit foods that are high in fat and processed sugars. These include foods that are fried or sweet. ? Take medicine for trouble pooping. ??? Avoid lifting heavy objects. ??? Avoid standing for long amounts of time. ??? Do not use any products that contain nicotine or tobacco. These include cigarettes and e-cigarettes. If you need help quitting, ask your doctor. ??? Stay at a healthy weight. General instructions ??? You may try to push your hernia in by very gently pressing on it when you are lying down. Do not try to force the bulge back in if it will not push in easily. ??? Watch your hernia for any changes in shape, size, or color. Tell your doctor if you see any changes. ??? Take uppw-oot-plzkjqq and prescription medicines only as told by your doctor. ??? Keep all follow-up visits as told by your doctor. This is important. Contact a doctor if: ??? You have a fever. ??? You have new symptoms. ??? Your symptoms get worse. Get help right away if: ??? The area where your leg meets your lower belly has: ? Pain that gets worse suddenly. ? A bulge that gets bigger suddenly, and it does not get smaller after that. ? A bulge that turns red or purple. ? A bulge that is painful when you touch it. ??? You are a man, and your scrotum: ? Suddenly feels painful. ? Suddenly changes in size. ??? You cannot push the hernia in by very gently pressing on it when you are lying down. Do not try to force the bulge back in if it will not push in easily. ??? You feel sick to your stomach (nauseous), and that feeling does not go away. ??? You throw up (vomit), and that keeps happening. ??? You have a fast heartbeat. ??? You cannot poop (have a bowel movement) or pass gas. These symptoms may be an emergency. Do not wait to see if the symptoms will go away. Get medical help right away. Call your local emergency services (911 in the [place] Summary ??? An inguinal hernia is when fat or your intestines push through a weak spot in a muscle where your leg meets your lower belly (groin). This causes a rounded lump (bulge). ??? If you do not have symptoms, you may not need treatment. If you have symptoms or a large hernia, you may need surgery. ??? Avoid lifting heavy objects. Also avoid standing for long amounts of time. ??? Do not try to force the bulge back in if it will not push in easily. This information is not intended to replace advice given to you by your health care provider. Make sure you discuss any questions you have with your health care provider. Document Revised: 04/07/2018 Document Reviewed: 12/06/2017 [employer] Patient Education ?? 2020 [employer]. Laparoscopic Inguinal Hernia Repair, Adult Laparoscopic inguinal hernia repair is a surgical procedure to repair a small weak spot in the groin muscles that allows fat or intestine from inside the abdomen to bulge out (inguinal hernia). This procedure may be planned, or it may be an emergency procedure. During the procedure, tissue that has bulged out is moved back into place, and the opening in the groin muscles is repaired. This is done through three small incisions in the abdomen. A thin tube with a light and camera on the end (laparoscope) will be used to help perform the procedure. Tell a health care provider about: ??? Any allergies you have. ??? All medicines you are taking, including vitamins, herbs, eye drops, creams, and ovyr-fot-lbmdfpe medicines. ??? Any problems you or family members have had with anesthetic medicines. ??? Any blood disorders you have. ??? Any surgeries you have had. ??? Any medical conditions you have. ??? Whether you are or may be . What are the risks? Generally, this is a safe procedure. However, problems may occur, including: ??? Infection. ??? Bleeding. ??? Allergic reactions to medicines. ??? Damage to other structures or organs. ??? Long-term pain and swelling of the scrotum, in men. ??? Testicle damage in men. ??? Inability to completely empty the bladder (urinary retention). ??? Blood clots. ??? A collection of fluid that builds up under the skin (seroma). ??? The hernia coming back (recurrence). What happens before the procedure? Medicines ??? Ask your health care provider about: ? Changing or stopping your regular medicines. This is especially important if you are taking diabetes medicines or blood thinners. ? Taking cihy-fnn-ukyzlgr medicines, vitamins, herbs, and supplements. ? Taking medicines such as aspirin and ibuprofen. These medicines can thin your blood. Do not take these medicines unless your health care provider tells you to take them. ??? You may be given antibiotic medicine to help prevent an infection. Staying hydrated Follow instructions from your health care provider about hydration, which may include: ??? Up to 2 hours before the procedure ??? you may continue to drink clear liquids, such as water, clear fruit juice, black coffee, and plain tea. Eating and drinking restrictions Follow instructions from your health care provider about eating and drinking, which may include: ??? 8 hours before the procedure ??? stop eating heavy meals or foods such as meat, fried foods, or fatty foods. ??? 6 hours before the procedure ??? stop eating light meals or foods, such as toast or cereal. ??? 6 hours before the procedure ??? stop drinking milk or drinks that contain milk. ??? 2 hours before the procedure ??? stop drinking clear liquids. General instructions ??? Do not use any products that contain nicotine or tobacco, such as cigarettes and e-cigarettes. If you need help quitting, ask your health care provider. ??? You may be asked to shower with a germ-killing soap. ??? Plan to have someone take you home from the hospital or clinic. ??? Plan to have a responsible adult care for you for at least 24 hours after you leave the hospital or clinic. This is important. What happens during the procedure? To lower your risk of infection: ? Your health care team will wash or sanitize their hands. ? Hair may be removed from the surgical area. ? Your skin will be washed with soap. ??? An IV will be inserted into one of your veins. ??? You will be given one or more of the following: ? A medicine to help you relax (sedative). ? A medicine to make you fall asleep (general anesthetic). ??? Three small incisions will be made in your abdomen. ??? Your abdomen will be inflated with carbon dioxide gas to make the surgical area easier to see. ??? A laparoscope and surgical instruments will be inserted through the incisions. The laparoscope will send images of the inside of your abdomen to a monitor in the room. ??? Tissue that is bulging through the hernia may be removed or moved back into its normal place. ??? The hernia opening will be closed with a sheet of surgical mesh. ??? The surgical instruments and laparoscope will be removed. ??? Your incisions will be closed with stitches (sutures) and adhesive strips. ??? A bandage (dressing) will be placed over your incisions. The procedure may vary among health care providers and hospitals. What happens after the procedure? Your blood pressure, heart rate, breathing rate, and blood oxygen level will be monitored until the medicines you were given have worn off. ??? You will be given pain medicine as needed. ??? You may continue to receive medicines and fluids through an IV. The IV will be removed after you can drink fluids well. ??? You will be encouraged to get up and move around, and to take deep breaths frequently. ??? Do not drive for 24 hours if you were given a sedative during your procedure. Summary ??? Laparoscopic inguinal hernia repair is a surgical procedure to repair a small weak spot in the groin muscles that allows fat or intestine from inside the abdomen to bulge out (inguinal hernia). ??? This procedure is done through three small incisions in the abdomen. A thin tube with a light and camera on the end (laparoscope) will be used to help perform the procedure. ??? After the procedure, you will be encouraged to get up and move around, and to take deep breaths frequently. This information is not intended to replace advice given to you by your health care provider. Make sure you discuss any questions you have with your health care provider. Document Revised: 08/14/2019 Document Reviewed: 06/15/2017 [employer] Patient Education ?? 2020 [employer] Laparoscopic Inguinal Hernia Repair, Adult, Care After This sheet gives you information about how to care for yourself after your procedure. Your health care provider may also give you more specific instructions. If you have problems or questions, contact your health care provider. What can I expect after the procedure? After the procedure, it is common to have: ??? Pain. ??? Swelling and bruising around the incision area. ??? Scrotal swelling, in men. ??? Some fluid or blood draining from your incisions. Follow these instructions at home: Incision care ??? Follow instructions from your health care provider about how to take care of your incisions. Make sure you: ? Wash your hands with soap and water before you change your bandage (dressing). If soap and water are not available, use hand audit clerks supervisor. ? Change your dressing as told by your health care provider. ? Leave stitches (sutures), skin glue, or adhesive strips in place. These skin closures may need to stay in place for 2 weeks or longer. If adhesive strip edges start to loosen and curl up, you may trim the loose edges. Do not remove adhesive strips completely unless your health care provider tells you to do that. ??? Check your incision area every day for signs of infection. Check for: ? More redness, swelling, or pain. ? More fluid or blood. ? Warmth. ? Pus or a bad smell. ??? Wear loose, soft clothing while your incisions heal. Driving ??? Do not drive or use heavy machinery while taking prescription pain medicine. ??? Do not drive for 24 hours if you were given a medicine to help you relax (sedative) during your procedure. Activity ??? Do not lift anything that is heavier than 10 lb (4.5 kg), or the limit that you are told, until your health care provider says that it is safe. ??? Ask your health care provider what activities are safe for you. A lot of activity during the first week after surgery can increase pain and swelling. For 1 week after your procedure: ? Avoid activities that take a lot of effort, such as exercise or sports. ? You may walk and climb stairs as needed for daily activity, but avoid long walks or climbing stairs for exercise. Managing pain and swelling ??? Put ice on painful or swollen areas: ? Put ice in a plastic bag. ? Place a towel between your skin and the bag. ? Leave the ice on for 20 minutes, 2???3 times a day. General instructions ??? Do not take baths, swim, or use a hot tub until your health care provider approves. Ask your health care provider if you may take showers. You may only be allowed to take sponge baths. ??? Take ohqy-lhy-vvmzsjl and prescription medicines only as told by your health care provider. ??? To prevent or treat constipation while you are taking prescription pain medicine, your health care provider may recommend that you: ? Drink enough fluid to keep your urine pale yellow. ? Take dxis-jzr-iqlolhn or prescription medicines. ? Eat foods that are high in fiber, such as fresh fruits and vegetables, whole grains, and beans. ? Limit foods that are high in fat and processed sugars, such as fried and sweet foods. ??? Do not use any products that contain nicotine or tobacco, such as cigarettes and e-cigarettes. If you need help quitting, ask your health care provider. ??? Drink enough fluid to keep your urine pale yellow. ??? Keep all follow-up visits as told by your health care provider. This is important. Contact a health care provider if: ??? You have more redness, swelling, or pain around your incisions or your groin area. ??? You have more swelling in your scrotum. ??? You have more fluid or blood coming from your incisions. ??? Your incisions feel warm to the touch. ??? You have severe pain and medicines do not help. ??? You have abdominal pain or swelling. ??? You cannot eat or drink without vomiting. ??? You cannot urinate or pass a bowel movement. ??? You faint. ??? You feel dizzy. ??? You have nausea and vomiting. ??? You have a fever. Get help right away if: ??? You have pus or a bad smell coming from your incisions. ??? You have redness, warmth, or pain in your leg. ??? You have chest pain. ??? You have problems breathing. Summary ??? Pain, swelling, and bruising are common after the procedure. ??? Check your incision area every day for signs of infection, such as more redness, swelling, or pain. ??? Put ice on painful or swollen areas for 20 minutes, 2???3 times a day. This information is not intended to replace advice given to you by your health care provider. Make sure you discuss any questions you have with your health care provider. Document Revised: 08/14/2019 Document Reviewed: 06/15/2017 [employer] Patient Education ?? 2020 [employer]. acetaminophen and hydrocodone (a SEET a MIN oh fen and lesly droe KOE done) Hycet, Lorcet, [place], Verdrocet, Vicodin, Xodol, Zamicet What is the most important information I should know about acetaminophen and hydrocodone? MISUSE OF OPIOID MEDICINE CAN CAUSE ADDICTION, OVERDOSE, OR . Keep the medication in a place where others cannot get to it. Taking opioid medicine during may cause life-threatening withdrawal symptoms in the . Fatal side effects can occur if you use opioid medicine with alcohol, or with other drugs that cause drowsiness or slow your breathing. Stop taking this medicine and call your doctor right away if you have skin redness or a rash that spreads and causes blistering and peeling. What is acetaminophen and hydrocodone? Acetaminophen and hydrocodone is a combination medicine used to relieve moderate to severe pain. Acetaminophen and hydrocodone contains an opioid medicine, and may be habit-forming. Acetaminophen and hydrocodone may also be used for purposes not listed in this medication guide. What should I discuss with my healthcare provider before taking acetaminophen and hydrocodone? You should not use this medicine if you are allergic to acetaminophen or hydrocodone, or if you have: ?? severe asthma or breathing problems; or ?? a blockage in your stomach or intestines. Tell your doctor if you have ever had: ?? breathing problems, sleep apnea (breathing stops during sleep); ?? liver disease; ?? a drug or alcohol addiction; ?? kidney disease; ?? a head injury or seizures; ?? urination problems; or ?? problems with your thyroid, pancreas, or gallbladder. If you use opioid medicine while you are , your baby could become dependent on the drug. This can cause life-threatening withdrawal symptoms in the baby after it is born. Babies born dependent on opioids may need medical treatment for several weeks. Ask a doctor before using opioid medicine if you are . Tell your doctor if you notice severe drowsiness or slow breathing in the nursing baby. How should I take acetaminophen and hydrocodone? Follow all directions on your prescription label. Never take this medicine in larger amounts, or for longer than prescribed. An overdose can damage your liver or cause . Tell your doctor if you feel an increased urge to use more of this medicine. Never share this medicine with another person, especially someone with a history of drug abuse or addiction. MISUSE CAN CAUSE ADDICTION, OVERDOSE, OR . Keep the medicine in a place where others cannot get to it. Selling or giving away this medicine is against the law. Measure liquid medicine carefully. Use the dosing syringe provided, or use a medicine dose-measuring device (not a kitchen spoon). If you need surgery or medical tests, tell the doctor ahead of time that you are using this medicine. You should not stop using this medicine suddenly. Follow your doctor's instructions about tapering your dose. Store at room temperature away from moisture and heat. Keep track of your medicine. You should be aware if anyone is using it improperly or without a prescription. Do not keep leftover opioid medication. Just one dose can cause in someone using this medicine accidentally or improperly. Ask your pharmacist where to locate a drug take-back disposal program. If there is no take-back program, flush the unused medicine down the toilet. What happens if I miss a dose? Since this medicine is used for pain, you are not likely to miss a dose. Skip any missed dose if it is almost time for your next dose. Do not use two doses at one time. What happens if I overdose? Seek emergency medical attention or call the Poison Help line at . An overdose of this medicine can be fatal, especially in a child or other person using the medicine without a prescription. Overdose symptoms may include nausea, vomiting, sweating, severe drowsiness, pinpoint pupils, slow breathing, or no breathing. Your doctor may recommend you get naloxone (a medicine to reverse an opioid overdose) and keep it with you at all times. A person caring for you can give the naloxone if you stop breathing or don't wake up. Your caregiver must still get emergency medical help and may need to perform CPR (cardiopulmonary resuscitation) on you while waiting for help to arrive. Anyone can buy naloxone from a pharmacy or local health department. Make sure any person caring for you knows where you keep naloxone and how to use it. What should I avoid while taking acetaminophen and hydrocodone? Avoid driving or operating machinery until you know how this medicine will affect you. Dizziness or drowsiness can cause falls, accidents, or severe injuries. Do not drink alcohol. Dangerous side effects or could occur. Ask a doctor or pharmacist before using any other medicine that may contain acetaminophen (sometimes abbreviated as APAP). Taking certain medications together can lead to a fatal overdose. What are the possible side effects of acetaminophen and hydrocodone? Get emergency medical help if you have signs of an allergic reaction: hives; difficulty breathing; swelling of your face, lips, tongue, or throat. Opioid medicine can slow or stop your breathing, and may occur. A person caring for you should give naloxone and/or seek emergency medical attention if you have slow breathing with long pauses, blue colored lips, or if you are hard to wake up. In rare cases, acetaminophen may cause a severe skin reaction that can be fatal. This could occur even if you have taken acetaminophen in the past and had no reaction. Stop taking this medicine and call your doctor right away if you have skin redness or a rash that spreads and causes blistering and peeling. Call your doctor at once if you have: ?? noisy breathing, sighing, shallow breathing, breathing that stops; ?? a light-headed feeling, like you might pass out; ?? liver problems--nausea, upper stomach pain, tiredness, loss of appetite, dark urine, heriberto-colored stools, jaundice (yellowing of the skin or eyes); ?? low cortisol levels-- nausea, vomiting, loss of appetite, dizziness, worsening tiredness or weakness; o ?? high levels of serotonin in the body--agitation, hallucinations, fever, sweating, shivering, fast heart rate, muscle stiffness, twitching, loss of coordination, nausea, vomiting, diarrhea. Serious breathing problems may be more likely in older adults and in those who are debilitated or have wasting syndrome or chronic breathing disorders. Common side effects include: ?? dizziness, drowsiness, feeling tired; ?? nausea, vomiting, stomach pain; ?? constipation; or ?? headache. This is not a complete list of side effects and others may occur. Call your doctor for medical advice about side effects. You may report side effects to FDA at 0-502-ATS-7033. What other drugs will affect acetaminophen and hydrocodone? You may have breathing problems or withdrawal symptoms if you start or stop taking certain other medicines. Tell your doctor if you also use an antibiotic, antifungal medication, heart or blood pressure medication, seizure medication, or medicine to treat HIV or hepatitis C. Opioid medication can interact with many other drugs and cause dangerous side effects or . Be sure your doctor knows if you also use: ?? cold or allergy medicines, bronchodilator asthma/COPD medication, or a diuretic ('water pill'); ?? medicines for motion sickness, irritable bowel syndrome, or overactive bladder; ?? other opioids--opioid pain medicine or prescription cough medicine; ?? a sedative like Valium--diazepam, alprazolam, lorazepam, Xanax, Klonopin, Versed, and others; ?? drugs that make you sleepy or slow your breathing--a sleeping pill, muscle relaxer, medicine to treat mood disorders or mental illness; ?? drugs that affect serotonin levels in your body--a stimulant, or medicine for depression, Parkinson's disease, migraine headaches, serious infections, or nausea and vomiting. This list is not complete. Other drugs may affect acetaminophen and hydrocodone, including prescription and oyjp-ofb-kemrqps medicines, vitamins, and herbal products. Not all possible interactions are listed here. Where can I get more information? Your doctor or pharmacist can provide more information about acetaminophen and hydrocodone. Remember, keep this and all other medicines out of the reach of children, never share your medicines with others, and use this medication only for the indication prescribed. Every effort has been made to ensure that the information provided by [employer]. ('[employer]') is accurate, up-to-date, and complete, but no guarantee is made to that effect. Drug information contained herein may be time sensitive. [employer] information has been compiled for use by healthcare practitioners and consumers in the [place] and therefore [employer] does not warrant that uses outside of the [place] are appropriate, unless specifically indicated otherwise. [employer]'s drug information does not endorse drugs, diagnose patients or recommend therapy. [employer] drug information is an informational resource designed to assist licensed healthcare practitioners in caring for their patients and/or to serve consumers viewing this service as a supplement to, and not a substitute for, the expertise, skill, knowledge and judgment of healthcare practitioners. The absence of a warning for a given drug or drug combination in no way should be construed to indicate that the drug or drug combination is safe, effective or appropriate for any given patient. [employer] does not assume any responsibility for any aspect of healthcare administered with the aid of information [employer] provides. The information contained herein is not intended to cover all possible uses, directions, precautions, warnings, drug interactions, allergic reactions, or adverse effects. If you have questions about the drugs you are taking, check with your doctor, nurse or pharmacist. Copyright 8482-7803 [employer]. Version: 16.03. Revision Date: 04/21/2020. ondansetron (oral) (on BRENDAN se marie) Jackson Paz Zuplenz What is the most important information I should know about ondansetron? You should not use ondansetron if you are also using apomorphine (Apokyn). What is ondansetron? Ondansetron blocks the actions of chemicals in the body that can trigger nausea and vomiting. Ondansetron is used to prevent nausea and vomiting that may be caused by surgery, cancer chemotherapy, or radiation treatment. Ondansetron may be used for purposes not listed in this medication guide. What should I discuss with my health care provider before taking ondansetron? You should not use ondansetron if: ?? you are also using apomorphine (Apokyn); or ?? you are allergic to ondansetron or similar medicines (dolasetron, granisetron, palonosetron). To make sure ondansetron is safe for you, tell your doctor if you have: ?? liver disease; ?? an electrolyte imbalance (such as low levels of potassium or magnesium in your blood); ?? congestive heart failure, slow heartbeats; ?? a personal or family history of long QT syndrome; or ?? a blockage in your digestive tract (stomach or intestines). Ondansetron is not expected to harm an unborn baby. Tell your doctor if you are . It is not known whether ondansetron passes into breast milk or if it could harm a nursing baby. Tell your doctor if you are breast-feeding a baby. Ondansetron is not approved for use by anyone younger than 4 years old. Ondansetron orally disintegrating tablets may contain phenylalanine. Tell your doctor if you have phenylketonuria (PKU). How should I take ondansetron? Follow all directions on your prescription label. Do not take this medicine in larger or smaller amounts or for longer than recommended. Ondansetron can be taken with or without food. The first dose of ondansetron is usually taken before the start of your surgery, chemotherapy, or radiation treatment. Follow your doctor's dosing instructions very carefully. Take the ondansetron regular tablet with a full glass of water. To take the orally disintegrating tablet (Zofran ODT): ?? Keep the tablet in its blister pack until you are ready to take it. Open the package and peel back the foil. Do not push a tablet through the foil or you may damage the tablet. ?? Use dry hands to remove the tablet and place it in your mouth. ?? Do not swallow the tablet whole. Allow it to dissolve in your mouth without chewing. ?? Swallow several times as the tablet dissolves. To use ondansetron oral soluble film (strip) (Zuplenz): ?? Keep the strip in the foil pouch until you are ready to use the medicine. ?? Using dry hands, remove the strip and place it on your tongue. It will begin to dissolve right away. ?? Do not swallow the strip whole. Allow it to dissolve in your mouth without chewing. ?? Swallow several times after the strip dissolves. If desired, you may drink liquid to help swallow the dissolved strip. ?? Wash your hands after using Zuplenz. Measure liquid medicine with the dosing syringe provided, or with a special dose-measuring spoon or medicine cup. If you do not have a dose-measuring device, ask your pharmacist for one. Store at room temperature away from moisture, heat, and light. Store liquid medicine in an upright position. What happens if I miss a dose? Take the missed dose as soon as you remember. Skip the missed dose if it is almost time for your next scheduled dose. Do not take extra medicine to make up the missed dose. What happens if I overdose? Seek emergency medical attention or call the Poison Help line at . Overdose symptoms may include sudden loss of vision, severe constipation, feeling light-headed, or fainting. What should I avoid while taking ondansetron? Ondansetron may impair your thinking or reactions. Be careful if you drive or do anything that requires you to be alert. What are the possible side effects of ondansetron? Get emergency medical help if you have signs of an allergic reaction: rash, hives; fever, chills, difficult breathing; swelling of your face, lips, tongue, or throat. Call your doctor at once if you have: ?? severe constipation, stomach pain, or bloating; ?? headache with chest pain and severe dizziness, fainting, fast or pounding heartbeats; ?? fast or pounding heartbeats; ?? jaundice (yellowing of the skin or eyes); ?? blurred vision or temporary vision loss (lasting from only a few minutes to several hours); ?? high levels of serotonin in the body--agitation, hallucinations, fever, fast heart rate, overactive reflexes, nausea, vomiting, diarrhea, loss of coordination, fainting. Common side effects may include: ?? diarrhea or constipation; ?? headache; ?? drowsiness; or ?? tired feeling. This is not a complete list of side effects and others may occur. Call your doctor for medical advice about side effects. You may report side effects to FDA at 5-042-ZZZ-4672. What other drugs will affect ondansetron? Ondansetron can cause a serious heart problem, especially if you use certain medicines at the same time, including antibiotics, antidepressants, heart rhythm medicine, antipsychotic medicines, and medicines to treat cancer, malaria, HIV or AIDS. Tell your doctor about all medicines you use, and those you start or stop using during your treatment with ondansetron. Taking ondansetron while you are using certain other medicines can cause high levels of serotonin to build up in your body, a condition called 'serotonin syndrome,' which can be fatal. Tell your doctor if you also use: ?? medicine to treat depression; ?? medicine to treat a psychiatric disorder; ?? a narcotic (opioid) medication; or ?? medicine to prevent nausea and vomiting. This list is not complete and many other drugs can interact with ondansetron. This includes prescription and gykr-llf-idpoftn medicines, vitamins, and herbal products. Give a list of all your medicines to any healthcare provider who treats you. Where can I get more information? Your pharmacist can provide more information about ondansetron. Remember, keep this and all other medicines out of the reach of children, never share your medicines with others, and use this medication only for the indication prescribed. Every effort has been made to ensure that the information provided by [employer]. ('[employer]') is accurate, up-to-date, and complete, but no guarantee is made to that effect. Drug information contained herein may be time sensitive. [employer] information has been compiled for use by healthcare practitioners and consumers in the [place] and therefore [employer] does not warrant that uses outside of the [place] are appropriate, unless specifically indicated otherwise. [employer]'s drug information does not endorse drugs, diagnose patients or recommend therapy. [employer] drug information is an informational resource designed to assist licensed healthcare practitioners in caring for their patients and/or to serve consumers viewing this service as a supplement to, and not a substitute for, the expertise, skill, knowledge and judgment of healthcare practitioners. The absence of a warning for a given drug or drug combination in no way should be construed to indicate that the drug or drug combination is safe, effective or appropriate for any given patient. [employer] does not assume any responsibility for any aspect of healthcare administered with the aid of information [employer] provides. The information contained herein is not intended to cover all possible uses, directions, precautions, warnings, drug interactions, allergic reactions, or adverse effects. If you have questions about the drugs you are taking, check with your doctor, nurse or pharmacist. Copyright 8473-7039 [employer]. Version: 13.01. Revision Date: 01/08/2016. Emergency Awareness and Preventative Care STROKE is an EMERGENCY Every Minute Counts Act FAST and Check for these signs: FACE Does the face look uneven? ARM Does one arm drift down? SPEECH Does their speech sound strange? TIME Call at any sign of stroke Stroke Risk Factors Atrial Fibrillation (irregular heartbeat) Diabetes Family history of stroke Heart Disease Heavy alcohol use High Blood Pressure High Cholesterol Physical inactivity and obesity Smoking Cigarette Smoking The facts are clear, cigarette smoking will shorten your life. Smoking can cause many illnesses along the way. As a healthcare provider, we recommend that you stop smoking. Assistance with quitting is available by contacting 4-131-OMFJ-NOW. This is a free resource providing counseling, support, and referral. Or you may contact your personal physician. National Suicide Prevention Lifeline: The National Suicide Prevention Lifeline is a national network of local crisis centers that provides free and confidential emotional support to people in suicidal crisis or emotional distress 24 hours a day, 7 days a week. Don't Wait! Stop a Heart Attack Before it Starts What is a heart attack? A heart attack is damage or to a part of the heart from severely decreased or lack of blood flow to the heart. Over time, arteries can become narrow from the buildup of fat and cholesterol, which is called plaque. The plaque can rupture causing a blood clot to form. When the blood clot forms, the artery can become severely narrowed or completely blocked, causing a heart attack. Heart attack is the leading cause of in the [place]. 85% of muscle damage occurs within the first 2 hours. Delay in the recognition of heart attack symptoms increases the chances of . Know the early symptoms of a heart attack: Nausea Feeling of fullness in chest Jaw Pain Pain that travels down one or both arms Fatigue/being tired Anxiety Back Pain Chest pressure, squeezing, or discomfort Shortness of breath Sweating, or a cold sweat Feeling of impending doom There are unusual signs of a heart attack, too! Women, the elderly, and diabetics may present with atypical symptoms: Fainting/dizziness Weakness Confusion Risk Factors for a Heart Attack Some heart disease risk factors, such as age and family history, cannot be changed. Others, like smoking and lack of exercise, can be changed. Smoking High Cholesterol High Blood Pressure Family History Obesity Age Gender (Males are at higher risk) Lack of Exercise Diabetes Diet Stress Excessive Alcohol Intake If you or someone you know is experiencing the signs and symptoms of a heart attack, DON???T DELAY. Call immediately and seek help. If someone collapses, perform CPR! Do not attempt to drive if you are having symptoms of heart attack. Hands-Only CPR Why Hands-Only CPR? Hands-Only CPR has been shown to be as effective as conventional CPR for cardiac arrests that occur outside of a hospital. Survival depends on immediately receiving CPR from someone nearby. How do you perform Hands-Only CPR? There are two easy steps: Call if you see a teen or adult collapse Push hard and fast in the center of the chest at a beat of 100 beats per minute. Save a life! 4 WAYS TO GET AHEAD OF SEPSIS SEPSIS is a MEDICAL EMERGENCY. Time matters! Infections put you and your family at risk for a life-threatening condition called sepsis. Sepsis is the body's extreme response to an infection. It is life-threatening, and without timely treatment, sepsis can rapidly lead to tissue damage, organ failure, and . Sepsis happens when an infection you already have-in your skin, lungs, urinary tract or somewhere else-triggers a chain reaction throughout your body. 1 PREVENT INFECTIONS Take good care of chronic conditions. Talk to your doctor about getting the recommended vaccines. 2 PRACTICE GOOD HYGIENE Wash your hands frequently. Keep cuts or open sores clean and covered until they are healed. 3 KNOW THE SYMPTOMS Confusion or disorientation Shortness of breath High heart rate Fever, shivering, or feeling very cold Extreme pain or discomfort Clammy or sweaty skin 4 ACT FAST Get medical care IMMEDIATELY if you suspect sepsis or if you have an infection that is not getting better or is getting worse. To learn more about sepsis and how to prevent infections, visit www.cdc.gov/sepsis. Test Results Laboratory or Other Results This Visit (last charted value for your 09/15/2020 visit) Hematology 09/16/2020 5:36 AM WBC: 18.6 K/uL -- Normal range between ( 4.5 and 10.5 ) RBC: 4.43 Million/uL -- Normal range between ( 3.93 and 5.22 ) Hct: 39.0 % -- Normal range between ( 34.1 and 44.9 ) Hgb: 13.0 g/dL -- Normal range between ( 11.2 and 15.7 ) Platelet Count: 223 K/uL -- Normal range between ( 163 and 369 ) MCH: 29.3 pg -- Normal range between ( 25.6 and 32.2 ) MCHC: 33.3 Gram/dL -- Normal range between ( 32.2 and 36.5 ) MCV: 88.0 fL -- Normal range between ( 79.0 and 94.8 ) Slide Review: No RDW: 13.2 % -- Normal range between ( 11.7 and 14.9 ) MPV: 10.0 fL -- Normal range between ( 9.4 and 12.4 ) Microbiology 09/11/2020 9:35 AM SARS-CoV-2 (COVID19 PCR): Negative General Chemistry 09/16/2020 5:36 AM Creatinine Level: 0.80 mg/dL -- Normal range between ( 0.55 and 1.02 ) Sodium Level: 137 mmol/L -- Normal range between ( 136 and 146 ) Potassium Level: 4.4 mmol/L -- Normal range between ( 3.5 and 5.1 ) Chloride Level: 106 mmol/L -- Normal range between ( 102 and 112 ) Carbon Dioxide Level: 28 mmol/L -- Normal range between ( 21 and 32 ) Anion Gap: 7 -- Normal range between ( 9 and 20 ) Bun/Creatinine: 17.5 -- Normal range between ( 8.0 and 20.0 ) Calcium Level: 8.5 mg/dL -- Normal range between ( 8.4 and 10.1 ) eGFR : >60 mL/min/1.73m2 eGFR NonAfrican: >60 mL/min/1.73m2 Glucose Level: 141 mg/dL -- Normal range between ( 74 and 106 ) Blood Urea Nitrogen: 14 mg/dL -- Normal range between ( 7 and 22 ) 09/15/2020 9:02 AM Potassium POC: 4.4 mmol/L -- Normal range between ( 3.5 and 4.9 ) :Potassium Level POC: :Potassium Level POC Patient Name:EARNEST YIN I have received and understand this information and was given the opportunity to ask questions. Patient/Assistant Media Planner Name: Patient/Assistant Media Planner Signature: Relationship to Patient: Clinician/Hospital Assistant Media Planner Signature: Date: documented in this encounter Plan of Treatment Not on file documented as of this encounter Visit Diagnoses Not on filedocumented in this encounter Care Teams Nuclear Operator Relationship Specialty Start Date End Date Mane Castro MD [address] [place] [id number] PCP - General Adolescent Medicine 05/04/22 documented as of this encounter
--- OUTSIDE RECORDS SUMMARY | 2024-08-23 11:15 | XMS_ITS | Encounter Summary ---
Author Organization [facility] Address [address] [place] [address] Care Team Providers Care Strategic Client Executive Name Role Phone Mane Castro MD Primary Care Provider + [phone] Encounter Details Date Type Department Care Team (Late st Contact Info) Description 09/17/2020 Transcribed Document [facility] [place] [facility] [place] [address] ProviderRayna MD [address] [place] [id number] Social History Tobacco Use Types Packs/Day [...] MD - 09/17/2020 9:28 AM CDT Patient Education Materials Follows: Inguinal Hernia, Adult An inguinal hernia is [...] if you see any changes. ??? Take qzud-wyc-mwzbdmm and prescription medicines only as told by [...] provider. Document Revised: 04/07/2018 Document Reviewed: 12/06/2017 [email or web address] Patient Education ? 2020 [employer]. Laparoscopic Inguinal Hernia Repair, Adult Laparoscopic inguinal [...] including vitamins, herbs, eye drops, creams, and fcyq-kzt-lxlnibu medicines. ??? Any problems you or family [...] diabetes medicines or blood thinners. ? Taking sqnh-jee-rfcfpya medicines, vitamins, herbs, and supplements. ? Taking [...] Up to 2 hours before the procedure ? you may continue to drink clear liquids, such as water, clear fruit juice, black coffee, and plain tea. Eating and drinking restrictions Follow instructions from your health care provider about eating and drinking, which may include: ??? 8 hours before the procedure ? stop eating heavy meals or foods such as meat, fried foods, or fatty foods. ??? 6 hours before the procedure ? stop eating light meals or foods, such as toast or cereal. ??? 6 hours before the procedure ? stop drinking milk or drinks that contain milk. ??? 2 hours before the procedure ? stop drinking clear liquids. General instructions ??? [...] provider. Document Revised: 08/14/2019 Document Reviewed: 06/15/2017 [email or web address] Patient Education ? 2019 [employer]. Laparoscopic Inguinal Hernia Repair, Adult, Care After [...] and water are not available, use hand application developer manager. ? Change your dressing as told by [...] Leave the ice on for 20 minutes, 2?3 times a day. General instructions ??? Do not take baths, swim, or use a hot tub until your health care provider approves. Ask your health care provider if you may take showers. You may only be allowed to take sponge baths. ??? Take lbkd-yrf-vxhgdjv and prescription medicines only as told by your health care provider. ??? To prevent or treat constipation while you are taking prescription pain medicine, your health care provider may recommend that you: ? Drink enough fluid to keep your urine pale yellow. ? Take pqhx-nxx-cvuovzn or prescription medicines. ? Eat foods that [...] painful or swollen areas for 20 minutes, 2?3 times a day. This information is not intended to replace advice given to you by your health care provider. Make sure you discuss any questions you have with your health care provider. Document Revised: 08/14/2019 Document Reviewed: 06/15/2017 Else[employer] Patient Education ? 2019 [email or web address] documented in this encounter Plan of Treatment Not on file documented as of this encounter Visit Diagnoses Not on filedocumented in this encounter Care Teams Strategic Client Executive Relationship Specialty Start Date End Date Mane Castro MD [address] [place] [id number] PCP - General Adolescent Medicine 05/04/22 documented as of this encounter
--- OUTSIDE RECORDS SUMMARY | 2024-08-23 11:15 | XMS_ITS | Encounter Summary ---
Author Organization [employer] Address [address] [place] [address] Care Team Providers Care Institutional Research Coordinator Name Role Phone Mane Castro MD Primary Care Provider + [phone] Encounter Details Date Type Department Care Team (Late st Contact Info) Description 09/17/2020 Transcribed Document [facility] Family Medicine [facility] [place] [address] ProviderRayna MD [address] [place] [address] Social History Tobacco Use Types Packs/Day Years Used Date Smoking Tobacco: Never Assessed Comments Unknown Sex and Gender Information Value Date Recorded Sex Assigned at Not on file Legal Sex Female 2:45 PM CDT Gender Identity Not on file Sexual Orientation Not on file documented as of this encounter Miscellaneous Notes * Cerner Conversion Note - Rayna ProviderMD - 09/17/2020 9:24 AM CDT Stroke/Warfarin Instructions Entered On: 09/17/2020 9:24 EDT Performed On: 09/17/2020 9:24 EDT by Priscilla Mcneil Virtual RN Stroke/Warfarin Instructions Stroke/TIA Discharge Ins : N/A Warfarin Discharge Ins : N/A Priscilla Mcneil Virtual RN - 09/17/2020 9:24 EDT documented in this encounter Plan of Treatment Not on file documented as of this encounter Visit Diagnoses Not on filedocumented in this encounter Care Teams Institutional Research Coordinator Relationship Specialty Start Date End Date Mane Castro MD [address] [place] [address] PCP - General Adolescent Medicine 05/04/22 documented as of this encounter
--- OUTSIDE RECORDS SUMMARY | 2024-08-23 11:15 | XMS_ITS | Encounter Summary ---
Author Organization [employer] Address [address] [place] [address] Care Team Providers Care Water Pump Installer Name Role Phone Mane Castro MD Primary Care Provider + [phone] Encounter Details Date Type Department Care Team (Late st Contact Info) Description 09/17/2020 Transcribed Document [facility] [place] Family [facility] [place] [address] ProviderRayna MD [address] [place] [address] Social History Tobacco Use Types Packs/Day Years Used Date Smoking Tobacco: Never Assessed Comments Unknown Sex and Gender Information Value Date Recorded Sex Assigned at Not on file Legal Sex Female 2:45 PM CDT Gender Identity Not on file Sexual Orientation Not on file documented as of this encounter Miscellaneous Notes * Cerner Conversion Note - Rayna ProviderMD - 09/17/2020 5:00 AM CDT Chart Check - Review Order Profile Entered On: 09/17/2020 4:27 EDT Performed On: 09/17/2020 5:00 EDT by Niecy Tucker Rn Chart Check Powerplans Initiated/Discontinued as Appropriate : Yes All Active Orders Reviewed : Yes Niecy Tucker Rn - 09/17/2020 4:27 EDT documented in this encounter Plan of Treatment Not on file documented as of this encounter Visit Diagnoses Not on filedocumented in this encounter Care Teams Water Pump Installer Relationship Specialty Start Date End Date Mane Castro MD [address] [place] [address] PCP - General Adolescent Medicine 05/04/22 documented as of this encounter
--- OUTSIDE RECORDS SUMMARY | 2024-08-23 11:15 | XMS_ITS | Continuity of Care Document ---
Author Organization [facility] Address [address] [place] [address] Care Team Providers Care Solar Pool Heating Installer Name Role Phone HIEU CAROLINA Referring Provider ROD YANEZ Primary Care Provider KEVIN CARVALHO Orthopedic Surgeon Assessment No assessment recorded. Plan of Treatment Reminders Order Date Submit Date Provider Last Modified By Organization Details Last Modified Time Details Appointments None record ed. Lab None record ed. Referral None record ed. Procedures None record ed. Surgeries None record ed. Imaging None record ed. Medication Orders None record ed. Patient TargetsNo targets recorded. Patient InstructionsNo instructions recorded. Reason for Referral None Reported. Results Created Date Observation Date Name Description Value Unit Range Abnormal Flag Note LastModifiedBy Organization Detail LastModifiedTime 07/06/19 25 07/05/2024 XR, knee, 4 or more view Khadijah palomino [facility] [address] [place] [address] Patien t Name: JERRY VELÁSQUEZ ER Patien t : 1949 Patien t Orderi ng Provid er: SVETLANA BEAN EXAM DATE: 2024 EXAM: XR RT KNEE COMPLE TE, 4 OR MORE VWS COMPAR KENNEDI: 024 HISTOR Y: Right knee pain. FINDIN GS: [...] low MD on 025 3:36 PM [email or web address] [facility] [place] [address], [place], [address], 07/15/2024 13:22:35 Result Notes None recorded. Problems Name Problem SNOMED Code Status Onset Date Resolution Date Notes Provider Name and Address Organization Details Recorded Time History of major abdominal surgery 997756329 Active 2023 HIEU BEACH MD [address] [place] [address], [address], [facility] 4 16:51:37 Type 2 diabetes mellitus without complicatio n 971312815 Active 2023 HIEU BAECH MD [address] [place] [address], [address], [facility] 4 16:51:38 Osteoarthri tis of left knee joint 7840903386598 09 Active 2023 HIEU BEACH MD [address] [place] [address], [address], [facility] 4 16:51:39 Problem Notes None recorded. Procedures Surgical History Date Name Laterality Status Provider Name and Address Organization Details Recorded Time 07/06/19 25 Injection Joint/Bursa, Major completed SVETLANA BEAN PA-C [address] [place] [address], [phone], [facility] 07/05/2024 16:43:35 09/27/19 24 Injection Joint/Bursa, Major completed LAKHWINDER SHARMA PA-C [address] [place] [address], [phone], [facility] 09/27/2023 10:44:43 07/19/19 24 total replacement of left knee joint completed Magi Niño [facility] 08/09/2023 11:29:28 07/13/19 24 PCM Visit completed Sin Trinidad [facility] 07/17/2023 10:52:34 04/26/19 24 Injection Joint/Bursa, Major completed SVETLANA BEAN PA-C [address] [place], [address], [facility] 04/26/2023 10:10:20 12/13/19 23 Injection Joint/Bursa, Major completed SVETLANA BEAN PA-C [address] [place], [address], [facility] 12/12/2022 13:44:08 07/08/19 23 Injection Joint/Bursa, Major completed SVETLANA BEAN PA-C [address] [place], [address], [facility] 07/26/2022 14:42:55 08/19/19 22 Injection Joint/Bursa, Major completed KEVIN CARVALHO MD [address] [place], [address], [facility] 08/18/2021 09:11:40 laminectomy completed Magi Niño [facility] 08/18/2021 08:44:04 cholecystectomy completed Magi Niño [facility] 08/18/2021 08:44:11 Unlisted ariana pagan's [email or web address] completed Magi Niño [facility] 08/18/2021 08:44:33 Imaging Results None recorded. Procedure Notes None recorded. Medical Equipment None Reported. Allergies Allergen ID Allergen Name Allergen Category Reaction Reaction Severity Criticality Documentation Date Start Date Code Code System Note Provider Name and Address Organization Details Recorded Time 860431 Product containin g penicilli n (product) medicatio n Not available Not available Not available 08/18/2021 65015 8001 SNOMED Magi Niño [facility] 2 08:40:20 439231 Lasix medicatio n Not available Not available Not available 08/18/2021 49270 1 RxNorm Magi Niño [facility] 2 08:40:24 619726 losartan medicatio n Not available Not available Not available 08/18/2021 98409 RxNorm Magi Niño [place], [facility] 08:40:30 Medications Name Sig Start Date Stop [...] Updated DateTime 07/05/2024 170.18 cm 34.5 kg/m2 83651.32 g Gela Khan [facility] 07/05/2024 14:23:35 Social History Question Answer Notes LastModified by Organizat ion Details LastModified Time Tobacco Smoking Status Never Smoker Magi Niño [facility] 08/18/2021 08:43:35 What Is Your Level Of Caffeine Consumption? Moderate [email or web address] Information not available 08/18/2021 What Was The Date Of Your Most Recent Tobacco Screening? 08/09/2023 [email or web address] Information not available 08/09/2023 What Is Your Relationship Status? [email or web address] Information not available 08/18/2021 Has Tobacco Cessation Counseling Been Provided? No Information not available 08/18/2021 Sex: Female Functional Status Question Answer Note LastModified by Organizat ion Details LastModified Time Do you use any illicit or recreational drugs? No [email or web address] Information not available 08/18/2021 Do you or have you ever used any other forms of tobacco or nicotine? No [email or web address] Information not available 08/18/2021 What is your level of alcohol consumption? None [email or web address] Information not available 08/18/2021 Are you currently employed? No retired [email or web address] Information not available 08/18/2021 Mental Status None recorded. Family History Relationship Description Onset Age of this Age Resolved Age Notes LastModified by Organization Details LastModified Time Father No current problems or disability [email or web address] Not available 03/2021 08:43:19 Mother No current problems or disability [email or web address] Not available 03/2021 08:43:19 Medical History Condition Response Allergies/Hayfever N Gout N Other Y Anxiety/Depression Y Thyroid Disease N Heart Conditions N Kidney Stones N Hernia N Migraines N COPD N Glaucoma N Pneumonia N Skin Problems N Immune System Disorder N Anesthesia Complications N Heart Attack (MS) N Mental Illness N Neurological Problems N [...] SNOMED-CT Code Diagnosis ICD10 Code Diagnosis Note [id number] SVETLANA BEAN PA-C [facility] [address] [address] 07/05/2024 13:13:07 07/05/2024 15:48:52 Osteoarthritis of right knee joint [id number] 40703 M17.11 Assessment : Osteoarthr itis right knee Plan: Steroid injection tolerated well without complicati on. Follow-up as needed. Health Concerns Section Related Observation LastModified by Organization Detai ls LastModified Time None Recorded Concern Status LastModified by Organization Details LastModified Time None Recorded Payers Encounter Date Sequence Insurance Name Policy Number Policy Brown Covered Member ID Brown Member ID Guarantor Name 07/05/2024 1 [employer] (MEDICARE REPLACEMENT/ ADVANTAGE - PPO) Mohinder Yin [id number] Mohinder Yin Notes Date Note Type Note Provider Name and Address Organization Details Recorded Time 07/05/2024 text/html WHAT: Right Left Bilat eral right Knee Ankle Hip Thigh Lower Leg Shoulder Elb ow Wrist/Hand kne e. WHEN: 3 weeks HOW: no injury SYMPTOMS: [...] on and moving the affected limb nothing bear ing weight on the affected limb. Overall, the patient would say that their pain is well-controlled at this time PAIN: X-RAY: LC MRI: LC We have disc Patient has disc No Disc none PT: none INJECTION: none SVETLANA BEAN PA-C [address] [place], [address], [facility] 07/05/2024 16:43:43 OBGyn Episode No OBEpisode recorded.
--- OUTSIDE RECORDS SUMMARY | 2024-08-23 11:15 | XMS_ITS | Encounter Summary ---
Author Organization Healthcare Address [address] [place] [address] Care Team Providers Care School Business Administrator Name Role Phone Mane Castro MD Primary Care Provider [phone] Encounter Details Date Type Department Care Team (Latest Contact Info) Description 07/24/2024 Travel Social History Tobacco Use Types Packs/Day [...] Description 12/04/2024 11:00 AM EDT Office Visit [facility] General Surgery [address], [address] [place] [phone] Garrett Galvin MD [address] [place] [phone] documented as of this encounter Visit Diagnoses Not on filedocumented in this encounter Additional Health Concerns Assessment Noted Time A fall risk assessment has been complete d for the patient 11/23/2023 10:08 AM EDT A Body Mass Index follow-up plan has been documented for the patient 07/24/2024 12:33 PM EDT documented as of this encounter Care Teams School Business Administrator Relationship Specialty Start Date End Date Mane Castro MD [address] [place] [address] PCP - General Internal Medicine 11/23/23 documented as of this encounter
--- OUTSIDE RECORDS SUMMARY | 2024-08-23 11:15 | XMS_ITS | Encounter Summary ---
Author Organization [employer] Address [address] [place] [address] Care Team Providers Care Geotechnical Field Technician Name Role Phone Mane Castro MD Primary Care Provider [phone] Encounter Details Date Type Department Care Team (Late st Contact Info) Description 09/17/2020 Transcribed Document [facility] [address] ProviderRayna MD [address] [place] [address] Social History Tobacco Use Types Packs/Day Years Used Date Smoking Tobacco: Never Assessed Comments Unknown Sex and Gender Information Value Date Recorded Sex Assigned at Not on file Legal Sex Female 2:45 PM CDT Gender Identity Not on file Sexual Orientation Not on file documented as of this encounter Miscellaneous Notes * Cerner Conversion Note - Rayna ProviderMD - 09/17/2020 2:00 AM CDT Lifts And Cranes Inspector Details Entered On: 09/17/2020 3:24 EDT Performed On: 09/17/2020 2:00 EDT by Niecy Tucker, Rn Order Details Transport Mode Order Detail : Stretcher/Gurney Isolation Precautions Order Detail : Standard Precautions Order Detail : 0 IV Order Detail : 1 Oxygen Order Detail : 0 Nurse Collect Order Detail : 0 Lift/Transfer : Minimal Central Line Order Detail : No Room Service : Appropriate Arterial Line : No Patient Needs Meds Crushed/Liquid : No Niecy Tucker Rn - 09/17/2020 3:24 EDT documented in this encounter Plan of Treatment Not on file documented as of this encounter Visit Diagnoses Not on filedocumented in this encounter Care Teams Geotechnical Field Technician Relationship Specialty Start Date End Date Mane Castro MD [address] [place] [address] PCP - General Adolescent Medicine 05/04/22 documented as of this encounter
== END 2024-08-23 23:59 | disposition home or self-care (01) ==
LOC: RT 11:11
PROVIDERS: PCP Nurse Practitioner Family; Visit Provider Nurse Practitioner
DX: Z01.810 Encounter for preprocedural cardiovascular examination (principal); I08.3 Combined rheumatic disorders of mitral, aortic and tricuspid valves; I11.9 Hypertensive heart disease without heart failure; I26.99 Other pulmonary embolism without acute cor pulmonale; I27.20 Pulmonary hypertension, unspecified
CPT/HCPCS: 93306

== ENCOUNTER 2024-12-31 08:54 | Outpatient (CLI) | payer MEDICARE, SELFPAY ==
--- OUTSIDE RECORDS SUMMARY | 2023-08-21 05:00 | XMS_ITS | Encounter Summary ---
[facility] Address [address] [place] [address] Care Team Providers Care Dairy Helper Name Role Phone Ese Barone APRN Primary Care Provid er Encounter Details Date Type Department Care Team (Late st Contact Info) Description 08/21/2023 5:00 AM EDT Hospital Encounter [facility] [place] [address] [facility] [address] [facility] [address] [facility] [address] [place] [phone] Social History Tobacco Use Types Packs/Day Years [...] Info) Description 02/17/2025 11:30 AM EST Appointment [facility] [place] [address] [facility] [address] [place] [address] 02/17/2025 1:30 PM EST Office Visit [facility] HEMAT[facility] & [facility]COLOGY [address] [facility] [address] [place] [phone] Luda Haile, DATA ANALYST [address] [facility] [address] [place] [address] 04/22/2025 4:15 PM EST Office Visit [facility] R[facility] [address] [facility] [address] [place] [phone] Yeison Estrada MD [address] [facility] [address] [place] [address] documented as of this encounter Visit Diagnoses Not on filedocumented in this encounter Care Teams Dairy Helper Relationship Specialty Start Date End Date Ese Barone APRN [address] [facility] [address] [place] [address] PCP - General Family Medicine 01/24/22 documented as of this encounter
--- OUTSIDE RECORDS SUMMARY | 2024-07-24 11:30 | XMS_ITS | Encounter Summary ---
Author Organization Healthcare Address [address] [place] [address] Care Team Providers Care Car Repairer Apprentice Name Role Phone Mane Castro MD Primary Care Provider [phone] Reason for Visit * Reason Comments Follow-up Encounter Details Date Type Department Care Team (Latest Contact Info) Description 07/24/2024 11:30 AM EDT Office Visit [facility] General Surgery [address], [address] [place] [address] Erica Alicea, MACHINE PULLER [address] [place] [address] Anticoagulated (Primary Dx); Diabetes 1.5, [...] and underwent laparoscopic hernia repair 2020 at [facility]. This was followed recurrence of the hernia and a laparoscopic hernia repair March 08t [facility]. She developed a recurrence of the [...] motor intact and no focal deficits Skin: [place], warm, well perfused Assessment/Plan Problem List Items [...] imaging and/or labs, communicating with other health customer care coordinator, and entering clinical information in the EHR. 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
--- OUTSIDE RECORDS SUMMARY | 2024-12-04 11:00 | XMS_ITS | Encounter Summary ---
Author Organization Healthcare Address [address] [place] [address] Care Team Providers Care Grain Spouter Name Role Phone Ese Barone ENRIQUE Primary Care Provider [phone] Reason for Visit * Reason Comments Follow-up Encounter Details Date Type Department Care Team (Late st Contact Info) Description 12/04/2024 11:00 AM EDT Office Visit [facility] General Surgery [address], [address] [place] [address] Garrett Galvin MD [address] [address] Personal history of nutritional deficiency (Primary Dx); [...] hernia and underwent laparoscopic hernia repair t [facility]. Thiswas followed recurrence of the hernia and a laparoscopic hernia repair March 08, 2022 at [facility], both involving mesh. Per chart review, she has 3 separate pieces of mesh. However, neither repair was successful in the international flight attendant. She noticed the recurrence of the hernia [...] motor intact and no focal deficits Skin: [place], warm, well perfused Assessment/Plan Problem List Items [...] Description 06/04/2025 11:00 AM EDT Office Visit [facility] General Surgery [address], [address] [place] [address] Garrett Galvin MD [address] [place] [phone] documented as of this encounter Visit Diagnoses [...] documented as of this encounter Care Teams Grain Spouter Relationship Specialty Start Date End Date Ese Barone APRN [address] [facility] [address] [place] [address] PCP - General 12/04/24 documented as of this encounter
--- OUTSIDE RECORDS SUMMARY | 2024-12-05 11:00 | XMS_ITS | Encounter Summary ---
Author Organization [facility] Address [address] [place] [id number] Care Team Providers Care Med Care Manager Name Role Phone Ese Barone APRN Primary Care Provid er Reason for Visit * Reason Comments Rheumatoid Factor Positive * Consultation (Routine) - Closed Specialty Diagnoses / Procedures Referred By Noemi garcia Referred To Contact Rheumatology Diagnoses Pain in left hand Pain in right hand Rheumatoid factor positive Ese Barone, ENRIQUE [address] [place] [address] Phone: tel: fax: [facility] RHEUMATOLOGY [address] [phone] Phone: tel: fax: Referral ID Status Reason Start Date Expiration Date Visits Re quested Visits Authorized [id number] Closed 11/13/2024 02/12/2026 1 1 Encounter Details Date Type Department Care Team (Latest Contact Info) Description 12/05/2024 11:00 AM EDT Office Visit [facility] RHEUMATOLOGY [address] [place] [phone] Yeison Estrada MD [address] [place] [phone] Rheumatoid factor positive (Primary Dx); Primary osteoarthritis of both hands; Paresthesia of both feet; Chronic fatigue Social History Tobacco Use Types Packs/Day Years [...] Sign Reading Time Taken Comments Blood Pressure 136/92 12/05/2024 10:37 AM EDT Pulse 65 12/05/2024 10:37 AM EDT Temperature 36.4 C (97.6 F) 12/05/2024 10:37 AM EDT Respiratory Rate - - Oxygen Saturation - - Inhaled Oxygen Concentration - - Weight 99.3 kg (218 lb 14.4 oz) 025 10:37 AM EDT Height 171.5 cm (5' 7.52 ) 12/05/2024 1 0:37 AM EDT Body Mass Index 33.76 12/05/2024 10:37 AM EDT documented in this encounter Progress Notes * Yeison Estrada MD - 12/05/2024 11:00 AM EDTAssociated Problem(s): Rheumatoid factor positive Positive rheumatoid factor first noted in 2012. Large rheumatologic workup at that time showed no evidence of rheumatoid arthritis. Recent onset of stinging and burning in the feet occurring primarily at night. Not associated with joint swelling. Some discomfort and stiffness in the PIP and DIP joints with bony enlargement. No joint swelling ofthe hands. No prolonged morning stiffness. Rheumatoid factor 94 with normal being up to 14. CRP and sedimentation rate normal. She does have a fairly high positive rheumatoid factor. However, this is longstanding and has not been associated with joint swelling and previous rheumatologic evaluation found no evidence of rheumatoid arthritis. Her foot pain sounds more neuritic than arthritic. She clearly has osteoarthritis of her fingers. She does not show synovitis or soft tissue swelling in her joints. I think further workup is necessary. I will obtain several labs today. I will x-ray her hands and feet. We discussed the meaning of a positive rheumatoid factor. I reviewed labs and old records and several x-rays and scans. Unfortunately, the hand and foot x-rays had not been performed. I will see her in follow-up in about 6 weeks. Orders: Comprehensive Metabolic Panel CBC Auto Differential C-reactive Protein Cyclic Citrul Peptide Antibody, IgG / IgA Sedimentation Rate Rheumatoid Factor BACILIO by IFA, Reflex 9-biomarkers profile XR Foot 3+ View Bilateral XR Hand 2 View Bilateral * Yeison Estrada MD - 12/05/2024 11:00 AM EDTAssociated Problem(s): Primary osteoarthritis of both hands She has Heberden's and Toño's nodes. * Yeison Estrada MD - 12/05/2024 11:00 AM EDTAssociated Problem(s): Paresthesia of both feet She probably has a small fiber neuropathy, possibly associated with her history of diabetes, previously treated with metformin. * Yeison Estrada MD - 12/05/2024 11:00 AM EDTAssociated Problem(s): Chronic fatigue Longstanding problem. Orders: Hepatitis Panel, Acute * Yeison Estrada MD - 12/05/2024 11:00 AM EDT Images from the original note were not included. Office Visit Date: 12/05/2024 Patient Name: Mohinder Yin Date of : 1950 Referring Physician: Ese Barone* Chief Complaint: Positive rheumatoid factor History of Present Illness: Mohinder Yin is a 74 y.o. female who is here today in consultation for a positive rheumatoid factor. In 2012, she was seen by a research software engineer, Dr. Byrne, for positive rheumatoid factor. Large workup ensued and there was no evidence of rheumatoid arthritis. She was lost to follow-up and generally didwell. In the past 6 to 7 months, she has been having increasing pain in her feet and hands. The foot painis like bee stings with a shocklike or buzzing sensation. This is generally from the ankles to the toes. It occurs primarily at night. It is not associated with joint swelling or tenderness. Her hand pain is primarily an ache. It is not associated with numbness or tingling. She has noticedno joint swelling but has seen knots in her DIP joints. She has not noted particular pain in her MCP joints. She does have stiffness in the PIP and DIP joints. She has noticed no joint tenderness. She has morning stiffness that lasts about 15 minutes. She does have the previously noted night pain in which her toes sting . Her hands do not keep her awake at night. She has no history of knots or nodules on her skin. She has no history suggestive of vasculitis. She has had no ocular or pulmonary complaints. She has no history of psoriasis, iritis, or symptoms ofinflammatory bowel disease. She does have a family history of rheumatoid arthritis in her paternal grandmother. Laboratory tests from 11/07/2024 revealed a rheumatoid factor of 94 with normal being up to 14. CRP and sedimentation rate were normal. Subjective Review of Systems: Review of Systems Constitutional: Positive for fatigue. Negative for chills, fever and unexpected weight loss. HENT: Positive for hearing loss and tinnitus. Negative for dental problem, mouth sores, sinus pressure and swollen glands. Eyes: Positive for blurred vision and visual disturbance. Negative for photophobia, pain and redness. Respiratory: Negative for apnea, cough, chest tightness and shortness of breath. Cardiovascular: Negative for chest pain and leg swelling. Gastrointestinal: Positive for abdominal pain. Negative for diarrhea, nausea and GERD. Genitourinary: Positive for pelvic pain and pelvic pressure. Negative for dysuria and hematuria. Musculoskeletal: Positive for back pain, joint swelling, myalgias, neck pain, neck stiffness and bursitis. Skin: Negative for dry skin, rash, skin lesions and bruise. Neurological: Positive for memory problem. Negative for dizziness, seizures, syncope, weakness and headache. Hematological: Negative for adenopathy. Bruises/bleeds easily. Psychiatric/Behavioral: Negative for sleep disturbance, suicidal ideas, depressed mood and stress. The patient is not nervous/anxious. Past Medical History: Past Medical History: Diagnosis Date Abdominal hernia Anemia Arthritis B12 deficiency Cataract Cervical spinal stenosis Diverticulosis Hearing loss NO AIDS History of radiation therapy 09/23/2022 left axilla Lymphoma PAC (premature atrial contraction) Pulmonary emboli Pulmonary hypertension Sleep apnea CPAP Wears glasses Wears partial dentures Past Surgical History: Past Surgical History: Procedure Laterality Date CHOLECYSTECTOMY COLON RESECTION N/A 05/13/2019 Procedure: SIGMOID COLECTOMY WITH TAKEDOWN COLOSTOMY APPENDECTOMY BILATERAL SALPINGO OOPHORECTOMY, LYSIS OF ADHESIONS, TAKEDOWN SPLENIC FLEXURE, PROCTOSCOPY; Surgeon: Kade Lance MD; Location: [facility] OR; Service: General; Laterality: N/A; COLONOSCOPY EXPLORATORY LAPAROTOMY N/A 02/16/2019 Procedure: Exploratory laparotomy, Sigmoid resection, Pelvic abscess drainage, Colostomy creation; Surgeon: Humberto Cordova MD; Location: [facility] OR; Service: General LAMINECTOMY L5-S1 REPLACEMENT TOTAL KNEE Left TONSILLECTOMY AND ADENOIDECTOMY TUBAL ABDOMINAL LIGATION Family History: Family History Problem Relation Age of Onset Hypertension Mother Stroke Mother Hypertension Father Stroke Father Atrial fibrillation Sister Atrial fibrillation Brother Leukemia Maternal Uncle Hodgkin's lymphoma Niece Breast cancer Neg Hx Ovarian cancer Neg Hx Social History: Social History Socioeconomic History Marital status: Tobacco Use Smoking status: Former Current packs/day: 0.00 Average packs/day: 1.5 packs/day for 10.0 years (15.0 ttl pk-yrs) Types: Cigarettes Start date: 1983 Quit date: 1993 Years since quittin.7 Smokeless tobacco: Never Substance and Sexual Activity Alcohol use: Not Currently Comment: RECOVERY 33 YEARS Drug use: No Sexual activity: Defer Medications: Current Outpatient Medications: acetaminophen (TYLENOL) 500 MG tablet, Take 1 tablet by mouth Every 6 (Six) Hours As Needed for Mild Pain (1-2 tablet as needed for pain)., Disp: , Rfl: bumetanide (BUMEX) 1 MG tablet, Take 1 tablet by mouth Daily. 2-3 days per week, Disp: , Rfl: hydroCHLOROthiazide 25 MG tablet, Take 1 tablet by mouth Daily., Disp: , Rfl: lisinopril (PRINIVIL,ZESTRIL) 20 MG tablet, Take 1 tablet by mouth Daily., Disp: , Rfl: MAGNESIUM-ZINC PO, Take 1 tablet/day by mouth Daily., Disp: , Rfl: meloxicam (MOBIC) 7.5 MG tablet, Take 1 tablet by mouth Every Night., Disp: , Rfl: PARoxetine (PAXIL) 10 MG tablet, Take 1 tablet by mouth Every Morning., Disp: , Rfl: potassium chloride (K-DUR) 10 MEQ CR tablet, Take 1 tablet by mouth Daily. With doses of Bumex, Disp: , Rfl: Semaglutide (OZEMPIC, 0.25 OR 0.5 MG/DOSE, SC), Inject 0.25 mg under the skin into the appropriate area as directed 1 (One) Time Per Week., Disp: , Rfl: benzonatate (TESSALON) 100 MG capsule, , Disp: , Rfl: cefdinir (OMNICEF) 300 MG capsule, Take 1 capsule by mouth Every 12 (Twelve) Hours. (Patient not taking: Reported on 12/05/2024), Disp: , Rfl: famotidine (PEPCID) 40 MG tablet, Take 1 tablet by mouth Daily. (Patient not taking: Reported on 12/05/2024), Disp: , Rfl: meclizine (ANTIVERT) 25 MG tablet, , Disp: , Rfl: ondansetron (ZOFRAN) 4 MG tablet, , Disp: , Rfl: Zepbound 5 MG/0.5ML solution auto-injector, ADMINISTER 5 MG UNDER THE SKIN 1 TIME A WEEK (Patient not taking: Reported on 12/05/2024), Disp: , Rfl: Allergies: Allergies Allergen Reactions Penicillins Angioedema Morphine Other (See Comments) Altered mental status Lasix [Furosemide] Itching Losartan Itching Sulfa Antibiotics Itching I have reviewed and updated the patient's chief complaint, history of present illness, review of systems, past medical history, surgical history, family history, social history, medications and allergy list as appropriate. Objective Vital Signs: Vitals: 12/05/24 1037 BP: 136/92 BP Location: Right arm Patient Position: Sitting Cuff Size: Adult Pulse: 65 Temp: 97.6 ??F (36.4 ??C) TempSrc: Skin Weight: 99.3 kg (218 lb 14.4 oz) Height: 171.5 cm (67.52 ) PainSc: 3 PainLoc: Foot Comment: Hands, Ankles Body mass index is 33.76 kg/m??. Physical Exam: General: The patient is well-developed and well nourished. Cooperative, alert and oriented x3. Affect is normal. Hydration appears normal. HEENT: Normocephalic and atraumatic. No notable alopecia. Lids and conjunctiva are normal. Pupils are equal and sclera are clear. Oropharynx is clear NECK: Supple without adenopathy, masses or thyromegaly. CARDIOVASCULAR: Regular rate and rhythm. No murmurs, rubs or gallops LUNGS: Effort is normal. Lungs are clear bilaterally. ABDOMEN: Soft and non-tender without masses or hepatosplenomegaly.. EXTREMITIES: No edema. No cyanosis or clubbing. SKIN: Inspection and palpation are normal. There are no nodules, rashes, vasculitic lesions, psoriatic lesions, or nail pits. NEUROLOGIC: Gait is normal. Deep tendon reflexes are 2+ and symmetric. MUSCULOSKELETAL: Complete joint exam was performed. There was full range of motion of the shoulders, elbows, wrists and hands without soft tissue swelling synovitis or deformities except as noted. She has scattered Heberden's and Toño's nodes, most notable at the fifth DIP joint bilaterally. Hips have good flexion and internal and external rotation. Knees have no palpable effusions. There is bony prominence of the little right knee. There is well- healed total knee replacement scar on the left. There is full extension and flexion. Ankles and feet have no soft tissue swelling or synovitis. Mild degenerative changes are seen, especially in the mid feet. BACK: Straight without scoliosis Joint Exam 12/05/2024 The following joints were examined and normal: Left TMJ, Right TMJ, Left Sternoclavicular, Right Sternoclavicular, Left Acromioclavicular, Right Acromioclavicular, Left Glenohumeral, Right Glenohumeral, Left Elbow, Right Elbow, Left Wrist, Right Wrist, Left CMC, Right CMC, Left MCP 1, Right MCP 1, Left MCP 2, Right MCP 2, Left MCP 3, Right MCP 3, Left MCP 4, Right MCP 4, Left MCP 5, Right MCP 5, Left IP (thumb), Right IP (thumb), Left PIP 2 (finger), Right PIP 2 (finger), Left PIP 3 (finger), Right PIP 3 (finger), Left PIP 4 (finger), RightPIP 4 (finger), Left PIP 5 (finger), Right PIP 5 (finger), Left DIP 2 (finger), Right DIP 2 (finger), Left DIP 3 (finger), Right DIP 3 (finger), Left DIP 4 (finger), Right DIP 4 (finger), Left DIP 5 (finger), Right DIP 5 (finger), Cervical Spine, Thoracic Spine, Lumbar Spine, Left Sacroiliac, RightSacroiliac, Left Hip, Right Hip, Left Knee, Right Knee, Left Ankle, Right Ankle, Left Subtalar, Right Subtalar, Left Tarsometatarsal, Right Tarsometatarsal, Left MTP 1, Right MTP 1, Left MTP 2, RightMTP 2, Left MTP 3, Right MTP 3, Left MTP 4, Right MTP 4, Left MTP 5, Right MTP 5, Left IP (toe), Right IP (toe), Left PIP 2 (toe), Right PIP 2 (toe), Left PIP 3 (toe), Right PIP 3 (toe), Left PIP 4 (toe), Right PIP 4 (toe), Left PIP 5 (toe), Right PIP 5 (toe), Left DIP 2 (toe), Right DIP 2 (toe), Left DIP 3 (toe), Right DIP 3 (toe), Left DIP 4 (toe), Right DIP 4 (toe), Left DIP 5 (toe), Right DIP5 (toe) Patient Global: -- Provider Global: -- Assessment / Plan Assessment & Plan Rheumatoid factor positive Positive rheumatoid factor first noted in 2012. Large rheumatologic workup at that time showed no evidence of rheumatoid arthritis. Recent onset of stinging and burning in the feet occurring primarily at night. Not associated with joint swelling. Some discomfort and stiffness in the PIP and DIP joints with bony enlargement. No joint swelling ofthe hands. No prolonged morning stiffness. Rheumatoid factor 94 with normal being up to 14. CRP and sedimentation rate normal. She does have a fairly high positive rheumatoid factor. However, this is longstanding and has not been associated with joint swelling and previous rheumatologic evaluation found no evidence of rheumatoid arthritis. Her foot pain sounds more neuritic than arthritic. She clearly has osteoarthritis of her fingers. She does not show synovitis or soft tissue swelling in her joints. I think further workup is necessary. I will obtain several labs today. I will x-ray her hands and feet. We discussed the meaning of a positive rheumatoid factor. I reviewed labs and old records and several x-rays and scans. Unfortunately, the hand and foot x-rays had not been performed. I will see her in follow-up in about 6 weeks. Orders: Comprehensive Metabolic Panel CBC Auto Differential C-reactive Protein Cyclic Citrul Peptide Antibody, IgG / IgA Sedimentation Rate Rheumatoid Factor BACILIO by IFA, Reflex 9-biomarkers profile XR Foot 3+ View Bilateral XR Hand 2 View Bilateral Primary osteoarthritis of both hands She has Heberden's and Toño's nodes. Paresthesia of both feet She probably has a small fiber neuropathy, possibly associated with her history of diabetes, previously treated with metformin. Chronic fatigue Longstanding problem. Orders: Hepatitis Panel, Acute Follow Up: Return in about 6 weeks (around 01/16/2025). Yeison Estrada MD [facility] [place] [facility] documented in this encounter Plan of Treatment Upcoming Encounters Date Type Department Care Team (Late st Contact Info) Description 02/17/2025 11:30 AM EST Appointment [facility] [address] [facility] [address] [place] [phone] 02/17/2025 1:30 PM EST Office Visit [facility] HEMATOLOGY & ONCOLOGY [address] [facility] [address] [place] [phone] Luda Haile, FORM MAKER [address] [facility] [address] [place] [address] 04/22/2025 4:15 PM EST Office Visit [facility] RHEUMATOLOGY [address] [facility] [address] [place] [phone] Yeison Estrada MD [address] [facility] [facility] [address] [place] [address] documented as of this encounter Procedures Procedure Name Priority Date/Time Associated Diagnosis Comments BACILIO BY IFA, REFLEX 9-BIOMARKERS PROFILE Routine 12/05/2024 12:15 PM EDT Rheumatoid factor positive HEPATITIS C VIRUS INTERPRETATION Routine 12/05/2024 12:15 PM EDT RHEUMATOID FACTOR, QUANT Routine 12/05/2024 12:15 PM EDT Rheumatoid factor positive CYCLIC CITRUL PEPTIDE ANTIBODY, IGG/IGA Routine 12/05/2024 12:15 PM EDT Rheumatoid factor positive HEPATITIS PANEL, ACUTE Routine 12:15 PM EDT Chronic fatigue SEDIMENTATION RATE Routine 12/05/2024 12 :15 PM EDT Rheumatoid factor positive CBC AND DIFFERENTIAL Routine 12/05/2024 12:15 PM EDT C-REACTIVE PROTEIN Routine 12/05/2024 12 :15 PM EDT Rheumatoid factor positive COMPREHENSIVE METABOLIC PANEL Routine 12/05/2024 12:15 PM EDT Rheumatoid factor positive XR HAND 2 VW BILATERAL Routine 5 11:44 AM EDT Rheumatoid factor positive XR FOOT 3+ VW BILATERAL Routine 12/06/19 25 11:44 AM EDT Rheumatoid factor positive documented in this encounter Results * Hepatitis C Virus Interpretation (12/05/2024 12:15 PM EDT) Interpretation Comment [facility] Comment: Not infected with HCV unless early or acute infection is suspected (which may be delayed in an immunocompromised individual), or other evidence exists to indicate HCV infection. 12/05/2024 12:1 5 PM EDT 12/05/2024 Narrative [facility] ([facility]BULAT[facility]) - 12/09/2024 9:07 AM EDT Performed at: 02 - [address] [id number] Track Service Worker: Guerrero Suero PhD, Phone: [phone] Patient Fasting: N Yeison Estrada MD LAB BLOOD ORDERABLES Final Res ult [facility] (AMBULATORY) [address] [place] [address], [facility] [address] [place] [address], * CBC & Differential (12/05/2024 12:15 PM EDT) WBC 8.96 3.40 - 10.80 10*3/mm3 [facility] RBC 4.49 3.77 - 5.28 10*6/mm3 [facility] Hemoglobin 13.4 12.0 - 15.9 g/dL [facility] Hematocrit 40.7 34.0 - 46.6 % [facility] MCV 90.6 79.0 - 97.0 fL [facility] MCH 29.8 26.6 - 33.0 pg [facility] MCHC 32.9 31.5 - 35.7 g/dL [facility] RDW 13.1 12.3 - 15.4 % [facility] Platelets 232 140 - 450 10*3/mm3 [facility] Neutrophil Rel % 56.5 42.7 - 76.0 % [facility] Lymphocyte Rel % 34.6 19.6 - 45.3 % [facility] Monocyte Rel % 6.8 5.0 - 12.0 % [facility] Eosinophil Rel % 1.1 0.3 - 6.2 % [facility] Basophil Rel % 0.7 0.0 - 1.5 % [facility] Neutrophils Absolute 5.06 1.70 - 7.00 10*3/mm3 [facility] Lymphocytes Absolute 3.10 0.70 - 3.10 10*3/mm3 [facility] Monocytes Absolute 0.61 0.10 - 0.90 10*3/mm3 [facility] Eosinophils Absolute 0.10 0.00 - 0.40 10*3/mm3 [facility] Basophils Absolute 0.06 0.00 - 0.20 10*3/mm3 [facility] Immature Granulocyte Rel % 0.3 0.0 - 0.5 % [facility] Immature Grans Absolute 0.03 0.00 - 0.05 10*3/mm3 [facility] nRBC 0.0 0.0 - 0.2 /100 WBC [facility] 12/05/2024 12:1 5 PM EDT 12/05/2024 Narrative [facility] ([facility]) - 12/09/2024 9:07 AM EDT Performed at: [address] [place] [id number] Track Service Worker: Lewis Henley MD, Phone: [phone] Patient Fasting: N Yeison Estrada MD LAB BLOOD ORDERABLES Final Res ult [facility] (AMBULATORY) [address] [place] [address], [place] [phone] [facility] [address] [place] [address], * Hepatitis Panel, Acute (12/05/2024 12:15 PM EDT) Hep A IgM Negative Negative [facility] Comment: A negative anti-HAV IgM result suggests no recent or current HAV infection. Hepatitis B Surface Ag Negative Negative [facility] Hep B Core IgM Negative Negative [facility] Hepatitis C Ab Non Reactive Non Reactive [facility] Blood 12/05/2024 12:1 5 PM EDT 12/05/2024 Narrative [facility] (AMBULATORY) - 12/09/2024 9:07 AM EDT Performed at: - [address] [id number] Track Service Worker: Guerrero Suero PhD, Phone: [phone] Patient Fasting: N Yeison Estrada MD LAB BLOOD ORDERABLES Final Res ult [facility] [address] [place] [id number], [place] [phone] [facility] [address] [place] [address], [place] [phone] * BACILIO by IFA, Reflex 9-biomarkers profile (12/05/2024 12:15 PM EDT) BACILIO Negative [facility] Comment: Negative <1:80 Borderline 1:80 Positive >1:80 ICAP nomenclature: AC-0 For more information about Hep-2 cell patterns use ANApatterns.org, the official website for the International Consensus on Antinuclear Antibody (BACILIO) Patterns (ICAP). Please note Comment [facility] Comment: BACILIO Multiplex methodology was designed to detect up to 11 antibodies of the 100+ antibodies that may be detected by BACILIO IFA methodology. Blood 12/05/2024 12:1 5 PM EDT 12/05/2024 Narrative [facility] (AMBULATORY) - 12/09/2024 9:07 AM EDT Performed at: - [address] [id number] Track Service Worker: Guerrero Suero PhD, Phone: [phone] Patient Fasting: N us Yeison Estrada MD LAB BLOOD ORDERABLES Final Res ult Performing Organization Address [facility] Co de Phone Number [facility] (AMBULATORY) [address] [place] [address], [place] [phone] [facility] [address] [place] [address], [place] [phone] * (ABNORMAL) Rheumatoid Factor (12/05/2024 12:15 PM EDT) [facility] RA Latex Turbid 68.4(H) <14.0 IU/mL [facility] Blood 12/05/2024 12:1 5 PM EDT 12/05/2024 Narrative [facility] (AMBULATORY) - 12/09/2024 9:07 AM EDT Performed at: [address] [place] [address] [address] [place], [place] [id number] Track Service Worker: Guerrero Suero PhD, Phone: [phone] Patient Fasting: N us Yeison Estrada MD LAB BLOOD ORDERABLES Final Res ult Performing Organization Address [facility] Co de Phone Number [facility] (AMBULATORY) [address] [place] [address], [place] [phone] [facility] [address] [place] [address], [place] [phone] * Sedimentation Rate (12/05/2024 12:15 PM EDT) [facility] Sed Rate 15 0 - 30 mm/hr [facility] Blood 12/05/2024 12:1 5 PM EDT 12/05/2024 Narrative [facility] ([facility]) - 12/09/2024 9:07 AM EDT Performed at: [address] [place] [id number] Track Service Worker: Lewis Henley MD, Phone: [phone] Patient Fasting: N us Yeison Estrada MD LAB BLOOD ORDERABLES Final Res ult Performing Organization Address City/[facility]/ZIP Co de Phone Number [facility] (AMBULATORY) [address] [place] [address], [facility] [address] [place] [address], * Cyclic Citrul Peptide Antibody, IgG / IgA (12/05/2024 12:15 PM EDT) Pathologist [facility] CCP Antibodies IgG/IgA 8 0 - 19 units [facility] Comment: Negative <20 Weak positive 20 - 39 Moderate positive 40 - 59 Strong positive >59 Blood 12/05/2024 12:1 5 PM EDT 12/05/2024 Narrative [facility] (AMBULATORY) - 12/09/2024 9:07 AM EDT Performed at: [address] [place] [address] [place] [id number] Track Service Worker: Guerrero Suero PhD, Phone: [phone] Patient Fasting: N us Yeison Estrada MD LAB BLOOD ORDERABLES Final Res ult Performing Organization Address [facility] Co de Phone Number [facility] [address] [place] [address], [facility] [address] [place] [address], [place] [phone] * C-reactive Protein (12/05/2024 12:15 PM EDT) [facility] C-Reactive Protein <0.30 0.00 - 0.50 mg/dL [facility] LAB Blood 12/05/2024 12:1 5 PM EDT 12/05/2024 [facility] (AMBULATORY) - 12/09/2024 9:07 AM EDT Performed at: [address] [place] [id number] Track Service Worker: Lewis Henley MD, Phone: [phone] Patient Fasting: N us Yeison Estrada MD LAB BLOOD ORDERABLES Final Res ult [facility] ([facility]ATORY) [address] [place] [address], [facility] [address] [place] [address], * (ABNORMAL) Comprehensive Metabolic Panel (12/05/2024 12:15 PM EDT) Glucose 84 65 - 99 mg/dL [facility] BUN 21.0 8.0 - 23.0 mg/dL [facility] Creatinine 0.80 0.57 - 1.00 mg/dL [facility] EGFR Result 77.9 >60.0 mL/min/1.7 3 [facility] Comment: GFR Categories in Chronic Kidney Disease (CKD) GFR Category GFR (mL/min/1.73) Interpretation G1 90 or greater Normal or high (1) G2 60-89 Mild decrease (1) G3a 45-59 Mild to moderate decrease G3b 30-44 Moderate to severe decrease G4 15-29 Severe decrease G5 14 or less Kidney failure (1)In the absence of evidence of kidney disease, neither GFR category G1 or G2 fulfill the criteria for CKD. eGFR calculation 2020 CKD-EPI creatinine equation, which does not include race as a factor BUN/Creatinine Ratio 26.3(H) 7.0 - 25.0 [facility] Sodium 141 136 - 145 mmol/L [facility] Potassium 4.9 3.5 - 5.2 mmol/L [facility] Chloride 105 98 - 107 mmol/L [facility] Total CO2 26.7 22.0 - 29.0 mmol/L [facility] Calcium 9.8 8.6 - 10.5 mg/dL [facility] Total Protein 7.0 6.0 - 8.5 g/dL [facility] Albumin 4.2 3.5 - 5.2 g/dL [facility] Globulin 2.8 gm/dL [facility] A/G Ratio 1.5 g/dL [facility] Total Bilirubin 0.3 0.0 - 1.2 mg/dL [facility] Alkaline Phosphatase 111 39 - 117 U/L [facility] AST (SGOT) 21 1 - 32 U/L [facility] ALT (SGPT) 11 1 - 33 U/L [facility] Blood 12/05/2024 12:1 5 PM EDT 12/05/2024 Narrative [facility] (AMBULATORY) - 12/09/2024 9:07 AM EDT Performed at: [address] [place] [address] [place], [place] [id number] Track Service Worker: Lewis Henley MD, Phone: [phone] Patient Fasting: N Yeison Estrada MD LAB BLOOD ORDERABLES Final Res ult [facility] (AMBULATORY) [address] [place] [address], [facility] [address] [place] [address], * XR Hand 2 View Bilateral (12/05/2024 11:44 AM EDT) Anatomical Region Laterality Modality Upper Extremities, Hand Bilateral Radiogra phic Imaging 12/09/2024 4:37 PM EDT Impressions 12/09/2024 4:43 PM EDT Impression: Probable marginal erosion at the right second MCP joint, less likely subchondral cyst, a finding which can be seen with rheumatoid arthritis. The MCP joint spaces appear grossly preserved and there are no additional findings to suggest erosive/inflammatory arthropathy. Scattered osteoarthritic changes. Electronically Signed: Myron Hercules MD 12/09/2024 4:43 PM EDT Workstation ID: [id number] DxDesc DxDesc Narrative 12/09/2024 4:43 PM EDT XR HAND 2 VW BILATERAL, XR FOOT 3+ VW BILATERAL Date of Exam: 12/05/2024 11:38 AM EDT Indication: Rheumatoid factor positive. Comparison: None available. Findings: Hands: Bone mineralization appears within normal limits. No definite soft tissue swelling. The metacarpophalangeal joint spaces appear grossly preserved. There is a subchondral lucency and cortical irregularity at the radial base of the right second proximal phalanx at the MCP joint. There is severe osteoarthritic change at the left thumb CMC joint. There are scattered osteoarthritic changes of the interphalangeal joints appearing mild to moderate, worst at the PIPs. Feet: No soft tissue swelling. There are severe osteoarthritic changes at the left first MTP joint characterized by high-grade joint space loss, subchondral cystic change, osteophytosis, and sclerosis. There are moderate to severe osteoarthritic changes of the left greater than right midfoot. No definite erosion. No periostitis. No acute fracture or malalignment. Procedure Note Myron Hercules MD - 12/09/2024 XR HAND 2 VW BILATERAL, XR FOOT 3+ VW BILATERAL Date of Exam: 12/05/2024 11:38 AM EDT Indication: Rheumatoid factor positive. Comparison: None available. Findings: Hands: Bone mineralization appears within normal limits. No definite soft tissueswelling. The metacarpophalangeal joint spaces appear grossly preserved.There is a subchondral lucency and cortical irregularity at the radialbase of the right second proximal phalanx at the MCP joint. There is severe osteoarthritic change at theleft thumb CMC joint. There are scattered osteoarthritic changes of theinterphalangeal joints appearing mild to moderate, worst at the PIPs. Feet: No soft tissue swelling. There are severe osteoarthritic changes atthe left first MTP joint characterized by high-grade joint space loss,subchondral cystic change, osteophytosis, and sclerosis. There aremoderate to severe osteoarthritic changes of the left greater than right midfoot. No definite erosion. Noperiostitis. No acute fracture or malalignment. IMPRESSION: Impression: Probable marginal erosion at the right second MCP joint, less likelysubchondral cyst, a finding which can be seen with rheumatoid arthritis.The MCP joint spaces appear grossly preserved and there are no additionalfindings to suggest erosive/inflammatory arthropathy. Scattered osteoarthritic changes. Electronically Signed: Myron Hercules MD 12/09/2024 4:43 PM EDT Workstation ID: [id number] DxDes DxDesc us Yeison Estrada MD IMG DIAGNOSTIC IMAGING ORDERAB LES Final Result * XR Foot 3+ View Bilateral (12/05/2024 11:44 AM EDT) Anatomical Region Laterality Modality Lower Extremities, Foot Bilateral Radiogra phic Imaging 12/09/2024 4:37 PM EDT Impressions 12/09/2024 4:43 PM EDT Impression: Probable marginal erosion at the right second MCP joint, less likely subchondral cyst, a finding which can be seen with rheumatoid arthritis. The MCP joint spaces appear grossly preserved and there are no additional findings to suggest erosive/inflammatory arthropathy. Scattered osteoarthritic changes. Electronically Signed: Myron Hercules MD 12/09/2024 4:43 PM EDT Workstation ID: [id number] DxDesc DxDesc Narrative 12/09/2024 4:43 PM EDT XR HAND 2 VW BILATERAL, XR FOOT 3+ VW BILATERAL Date of Exam: 12/05/2024 11:38 AM EDT Indication: Rheumatoid factor positive. Comparison: None available. Findings: Hands: Bone mineralization appears within normal limits. No definite soft tissue swelling. The metacarpophalangeal joint spaces appear grossly preserved. There is a subchondral lucency and cortical irregularity at the radial base of the right second proximal phalanx at the MCP joint. There is severe osteoarthritic change at the left thumb CMC joint. There are scattered osteoarthritic changes of the interphalangeal joints appearing mild to moderate, worst at the PIPs. Feet: No soft tissue swelling. There are severe osteoarthritic changes at the left first MTP joint characterized by high-grade joint space loss, subchondral cystic change, osteophytosis, and sclerosis. There are moderate to severe osteoarthritic changes of the left greater than right midfoot. No definite erosion. No periostitis. No acute fracture or malalignment. Procedure Note Myron Hercules MD - 12/09/2024 XR HAND 2 VW BILATERAL, XR FOOT 3+ VW BILATERAL Date of Exam: 12/05/2024 11:38 AM EDT Indication: Rheumatoid factor positive. Comparison: None available. Findings: Hands: Bone mineralization appears within normal limits. No definite soft tissueswelling. The metacarpophalangeal joint spaces appear grossly preserved.There is a subchondral lucency and cortical irregularity at the radialbase of the right second proximal phalanx at the MCP joint. There is severe osteoarthritic change at theleft thumb CMC joint. There are scattered osteoarthritic changes of theinterphalangeal joints appearing mild to moderate, worst at the PIPs. Feet: No soft tissue swelling. There are severe osteoarthritic changes atthe left first MTP joint characterized by high-grade joint space loss,subchondral cystic change, osteophytosis, and sclerosis. There aremoderate to severe osteoarthritic changes of the left greater than right midfoot. No definite erosion. Noperiostitis. No acute fracture or malalignment. IMPRESSION: Impression: Probable marginal erosion at the right second MCP joint, less likelysubchondral cyst, a finding which can be seen with rheumatoid arthritis.The MCP joint spaces appear grossly preserved and there are no additionalfindings to suggest erosive/inflammatory arthropathy. Scattered osteoarthritic changes. Electronically Signed: Myron Hercules MD 12/09/2024 4:43 PM EDT Workstation ID: [id number] DxDesc DxDesc Yeison Estrada MD IMG DIAGNOSTIC IMAGING ORDERAB LES Final Result documented in this encounter Visit Diagnoses Diagnosis Rheumatoid factor positive- Primary Other and unspecified nonspecific immunological findings Primary osteoarthritis of both hands Paresthesia of both feet Chronic fatigue Other malaise and fatigue documented in this encounter Care Teams Med Care Manager Relationship Specialty Start Date End Date Ese Barone APRN [facility] [place] [address] [place] [address] PCP - General Family Medicine 01/24/22 documented as of this encounter
--- OUTSIDE RECORDS SUMMARY | 2024-12-05 11:45 | XMS_ITS | Encounter Summary ---
Author Organization [facility] Address [address] [place] [address] Care Team Providers Care Cash Management Associate Name Role Phone Ese Barone APRN Primary Care Provid er Encounter Details Date Type Department Care Team (Late st Contact Info) Description 12/05/2024 11:45 AM EDT Ancillary Procedure [facility] RHEUMATOLOGY [address] [place] [address] Social History Tobacco Use Types [...] Info) Description 02/17/2025 11:30 AM EST Appointment [facility] 3000 [facility] [address] [place] [address] 02/17/2025 1:30 PM EST Office Visit [facility] HEMATOLOGY & ONCOLOGY 3000 [facility] [address] [place] [address] Luda Haile, SODA DIALYZER 1700 [facility] [address] [place] [address] 04/22/2025 4:15 PM EST Office Visit [facility] RHEUMATOLOGY 330 [facility] 100 [place] [phone] Yeison Estrada MD 330 [facility] 100 [place] [address] documented as of this encounter Procedures Procedure Name Priority Date/Time Associated Diagnosis Comments XR HAND 2 VW BILATERAL Routine 12/05/2024 11:44 AM EDT Rheumatoid factor positive XR FOOT 3+ VW BILATERAL Routine 12/05/2024 11:44 AM EDT Rheumatoid factor positive documented in this encounter Results * XR Hand 2 View Bilateral (12/05/2024 11:44 AM EDT) Anatomical Region Laterality Modality Upper Extremities, Hand Bilateral [facility] 12/09/2024 4:37 PM EDT Impressions 12/09/2024 [...] MD 12/09/2024 4:43 PM EDT Workstation ID: [id number] DxDesc DxDesc Narrative 12/09/2024 4:43 PM EDT [...] MD 12/09/2024 4:43 PM EDT Workstation ID: [id number] DxDesc DxDesc Yeison Estrada MD IMG DIAGNOSTIC [...] MD 12/09/2024 4:43 PM EDT Workstation ID: [id number] DxDesc DxDesc Narrative 12/09/2024 4:43 PM EDT [...] MD 12/09/2024 4:43 PM EDT Workstation ID: [id number] DxDesc DxDesc us Yeison Estrada MD IMG DIAGNOSTIC IMAGING ORDERAB LES Final Result documented in this encounter Visit Diagnoses Not on filedocumented in this encounter Care Teams Cash Management Associate Relationship Specialty Start Date End Date Ese Barone APRN [address] [place] [address] [place], [place] [address] PCP - General Family Medicine 01/24/22 documented as of this encounter
--- NOTE | 2024-12-31 09:00 | XR_ITS ---
FINAL REPORT TECHNIQUE: Bone densitometry calculations of the lumbar spine and left hip were obtained. CLINICAL HISTORY: SCREENING COMPARISON: None FINDINGS: Using L1-4, the bone mineral density of the spine is 1.242 g/cm2, corresponding to T-score of 1.8 and a Z score of 4.1. This is within the range of normal limits. Using the left hip, the bone mineral density of the femoral neck is 0.903 g/cm2, corresponding to a T-score of 0.5 and a Z-score of 2.5. This is within the range of normal limits. FRAX not reported because all T-scores at or above -1.0. NOTE: T-score: Standard deviation compared with peak bone mass of young adult mean. *Following the recommendations of the International Society of Bone densitometry, classification of hip BMD is based on the lower of two T-scores; total hip or femoral neck. IMPRESSION: 1. Bone mineral density of the lumbar spine within the range of normal limits. 2. Bone mineral density of the left femoral neck within the range of normal limits. Reviewed, Interpreted and Dictated by Toña Jeffries MD Transcribed by Tricia Fritz Authenticated and [facility]
--- OUTSIDE RECORDS SUMMARY | 2024-12-31 09:07 | XMS_ITS | Referral Summary ---
Author Organization [facility] ([place], [place], [place], [place]) Address [address] [place] [address] Care Team Providers Care Documentation Nurse Name Role Phone Mane Castro MD Primary Care Provider [phone] Allergies Active Allergy Reactions Criticality Noted Date [...] Date Resolved Date Colostomy in place 05/13/2019 Social History Tobacco Use Types Packs/Day Years Used Date Smoking Tobacco: Former Cigarettes Smokeless Tobacco: Never Tobacco Cessation:Counseling Given: Not Answered Comments:Quit 30 years ago Alcohol Use Standard Drinks/Week Comments Not Currently 0 (1 standard drink = 0.6 oz pur e alcohol) PRAPARE - Transportation Answer Date Re corded In the past 12 months, has l ack of transportation kept you from medical appointments or from getting medications? No 01/24/2023 Lack of Transportation (Non-Medical) Not on file 01/24/2023 Food Insecurity Answer Date Recorded Food run [...] Date Dipak rded Speak language other than Czech at home Not on file 04/01/2023 Want help with school or training Not on file 04/01/2023 Substance Use Answer Date Recorded Used [...] on file Medical Devices Implanted Type Area Vp Global Device Identifier Shelf Expiration Date Model / Serial / Lot Mesh Vntrlght Cir Echo 2 15cm [id number] - [id number] Implanted:Qt y: 1 on 01/24/2023 by Garrett Ireland MD at [facility] IMPLANTS N/A: Abdomen CR BARD:DAVOL 08/15/2023 [id number] / / [id number] Cement Bone Smplx Hv 6194-1-001 - [id number] Implanted:Qt y: 2 on 07/19/[address] [facility] IMPLANTS Left: Knee GLENYS:[employer] [id number] 11/17/2024 6194-1-00 / [id number] E Tib Cemented L Sz E 30-7318-430- 01 - [id number] Implanted:Qt y: 1 on 07/19/[address] [facility] IMPLANTS Left: Knee LANETTE:LANETTE [place] [id number] 05/01/2033 42-5320-0 71- [id number] Psn Asf Mc 14mm Ve 8-11ef 34-0518-892- 14 - [id number] Implanted:Qt y: 1 on 07/19/[address] [facility] TOTAL JOINT CONSTRUCT Left: Knee LANETTE:LANETTE [place] [id number] 02/09/2028 42-5121-0 08- [id number] Psn Fem Cr Cmt Ccr Nrw Sz 8 L 78-7140-647- 01 - [id number] Implanted:Qt y: 1 on 07/19/[address] [facility] TOTAL JOINT CONSTRUCT Left: Knee LANETTE:LANETTE [place] [id number] 05/21/2033 42-5020-0 64- [id number] Insurance [employer] MEDICARE PPO Advance Directives For more information, please contact: [phone] * Full Code (Latest Code Status on [...] ACLS medications, or cardioversion as indicated. Call QC ANALYST * Full Code Date Activated Date Inactivated Comments 01/24/2023 6:36 AM 01/24/2023 11:53 AM Care Teams Documentation Nurse Relationship Specialty Start Date End Date Mane Castro MD [address] [place] [address] [place] [address] PCP - General Adolescent Medicine 05/04/22
--- OUTSIDE RECORDS SUMMARY | 2024-12-31 09:07 | XMS_ITS | Encounter Summary ---
Author Organization Healthcare Address [address] [place] [address] Care Team Providers Care Flattening Press Operator Name Role Phone Mane Castro MD Primary Care Provider [phone] Ese Barone APRN Primary Care Provider + [phone] Encounter Details Date Type Department Care Team (Late Contact Info) Description 08/19/2024 Orders Only External Location [address] [place] [address] Tamia Hernandez MD 1700 [facility] 1100 [place] [address] Social History Tobacco Use Types Packs/Day Years [...] Department Care Team (Late Contact Info) Description 06/04/2025 11:00 AM EDT Office Visit [facility] [address], [address] [place] [address] Garrett Galvin MD [address] [address] documented as of this encounter Procedures Procedure Name Priority Date/Time Associated Diagnosis Comments CT OUTSIDE IMAGES 08/19/2024 11:12 AM EDT documented in this encounter Results * CT OUTSIDE IMAGES (08/19/2024 11:12 AM EDT) Anatomical Region Laterality Modality Computed Tomogra phy 08/19/2024 11:1 2 AM EDT Tamia Hernandez MD IMAdriane CT PROCEDURES Edited Result - Final documented in this encounter Visit Diagnoses Not on filedocumented in this encounter Additional Health Concerns Assessment Noted Time A fall risk assessment has been complete d for the patient 11/23/2023 10:08 AM EDT A Body Mass Index follow-up plan has been documented for the patient 07/24/2024 12:33 PM EDT documented as of this encounter Care Teams Flattening Press Operator Relationship Specialty Start Date End Date Mane Castro MD [address] [place] [address] PCP - General Internal Medicine 11/23/23 12/03/24 Ese Barone APRN [address] [place] [address] PCP - General 12/04/24 documented as of this encounter
--- OUTSIDE RECORDS SUMMARY | 2024-12-31 09:07 | XMS_ITS | Encounter Summary ---
Author Organization Healthcare Address [address] [place] [address] Care Team Providers Care Artificial Leather Calender Operator Name Role Phone Ese Barone APRN Primary Care Provider [phone] Encounter Details Date Type Department Care Team (Latest Contact Info) Description 12/04/2024 Travel Social History Tobacco Use Types Packs/Day [...] Description 06/04/2025 11:00 AM EDT Office Visit [facility] General Surgery [address] [place] [address] Garrett Galvin MD [address] [place] [phone] documented as of this encounter Visit Diagnoses Not on filedocumented in this encounter Additional Health Concerns Assessment Noted Time A fall risk assessment has been complete d for the patient 12/04/2024 10:55 AM EDT A Body Mass Index follow-up plan has been documented for the patient 12/10/2024 1:33 PM EDT documented as of this encounter Care Teams Artificial Leather Calender Operator Relationship Specialty Start Date End Date Ese Barone APRN [address] [place] [facility] [address] [place] [phone] PCP - General 12/04/24 documented as of this encounter
--- OUTSIDE RECORDS SUMMARY | 2024-12-31 09:07 | XMS_ITS | Encounter Summary ---
Author Organization Healthcare Address [address] [place] [address] Care Team Providers Care Construction Teacher Name Role Phone Mane Castro MD Primary Care Provider [phone] Ese Barone APRN Primary Care Provider + [phone] Encounter Details Date Type Department Care Team (Late Contact Info) Description 08/19/2024 Orders Only External Location [address] [place] [address] Tamia Hernandez MD 1700 [facility] [address] [place] [address] Social History Tobacco Use Types Packs/Day Years [...] Description 06/04/2025 11:00 AM EDT Office Visit [facility] [address] [place] [address] Garrett Galvin MD [address] [address] documented as of this encounter Procedures Procedure [...] documented as of this encounter Care Teams Construction Teacher Relationship Specialty Start Date End Date Mane Castro MD [address] [place] [address] PCP - General Internal Medicine 11/23/23 12/03/24 Ese Barone APRN [address] [place] [address] PCP - General 12/04/24 documented as of this encounter
--- OUTSIDE RECORDS SUMMARY | 2024-12-31 09:07 | XMS_ITS | Encounter Summary ---
Author Organization Healthcare Address [address] [place] [address] Care Team Providers Care Payroll Director Name Role Phone Mane Castro MD Primary Care Provider [phone] Ese Barone APRN Primary Care Provider + [phone] Encounter Details Date Type Department Care Team (Late Contact Info) Description 08/19/2024 Orders Only External Location [address] [place] [address] Tamia Hernandez MD 1700 [facility] [address] [place] [address] Social History Tobacco Use Types Packs/Day Years [...] Description 06/04/2025 11:00 AM EDT Office Visit [facility] General Surgery [address] [place] [address] Garrett Galvin MD [address] [address] documented as of this encounter Procedures Procedure [...] documented as of this encounter Care Teams Payroll Director Relationship Specialty Start Date End Date Mane Castro MD [address] [place] [address] PCP - General Internal Medicine 11/23/23 12/03/24 Ese Barone APRN [address] [place] [address] PCP - General 12/04/24 documented as of this encounter
--- OUTSIDE RECORDS SUMMARY | 2024-12-31 09:07 | XMS_ITS | Encounter Summary ---
Author Organization Healthcare Address [address] [place] [address] Care Team Providers Care Nurse Research Name Role Phone Mane Castro MD Primary Care Provider [phone] Ese Barone APRN Primary Care Provider + [phone] Encounter Details Date Type Department Care Team (Late Contact Info) Description 08/19/2024 Orders Only External Location [address] [place] [address] Tamia Hernandez MD 1700 [facility] [address] [place] [address] Social History Tobacco Use Types Packs/Day Years [...] Description 06/04/2025 11:00 AM EDT [facility] [address] [place] [address] Garrett Galvin MD [address] [address] documented as of this encounter Procedures Procedure [...] documented as of this encounter Care Teams Nurse Research Relationship Specialty Start Date End Date Mane Castro MD [address] [place] [address] PCP - General Internal Medicine 11/23/23 12/03/24 Ese Barone APRN [address] [place] [address] PCP - General 12/04/24 documented as of this encounter
--- OUTSIDE RECORDS SUMMARY | 2024-12-31 09:07 | XMS_ITS | Encounter Summary ---
Author Organization Healthcare Address [address] [place] [address] Care Team Providers Care Manager Food Name Role Phone Mane Castro MD Primary Care Provider [phone] Ese Barone APRN Primary Care Provider + [phone] Encounter Details Date Type Department Care Team (Late Contact Info) Description 08/19/2024 Orders Only External Location 800 [place] [address] Tamia Hernandez MD 1700 [facility] [address] [place] [address] Social History Tobacco Use Types Packs/Day Years [...] Description 06/04/2025 11:00 AM EDT Office Visit [place] [facility] [address] [place] [address] Garrett Galvin MD [address] [address] documented as of this encounter Procedures Procedure [...] as of this encounter Care Teams Manager Food Relationship Specialty Start Date End Date Mane Castro MD [address] [place] [address] PCP - General Internal Medicine 11/23/23 12/03/24 Ese Barone APRN [address] [place] [address] PCP - General 12/04/24 documented as of this encounter
--- OUTSIDE RECORDS SUMMARY | 2024-12-31 09:07 | XMS_ITS | Encounter Summary ---
Author Organization Healthcare Address [address] [place] [address] Care Team Providers Care Hat Stock Laminating Machine Operator Name Role Phone Mane Castro MD Primary Care Provider [phone] Encounter Details Date Type Department Care Team (Late Contact Info) Description 11/25/2024 Telephone [place] [facility] General [facility] [address] [place] [address] Erica Alicea APRN [address] [place] [address] Social History Tobacco Use Types Packs/Day Years [...] as of this encounter Miscellaneous Notes * Telephone Encounter - Erica Alicea APRN - 11/25/2024 11:18 AM EDT Left message advising that if cardiac clearance not received, 12/[address] Galvin will be rescheduled documented in this encounter Plan of Treatment Upcoming Encounters Date Type Department Care Team (Late st Contact Info) Description 06/04/2025 11:00 AM EDT Office Visit [facility] General Surgery [address] [place] [address] Garrett Galvin MD [address] [facility] [address] [place] [address] documented as of this encounter Visit Diagnoses Not on filedocumented in this encounter Additional Health Concerns Assessment Noted Time A fall risk assessment has been complete d for the patient 11/23/2023 10:08 AM EDT A Body Mass Index follow-up plan has been documented for the patient 07/24/2024 12:33 PM EDT documented as of this encounter Care Teams Hat Stock Laminating Machine Operator Relationship Specialty Start Date End Date Mane Castro MD [address] [place] [address] PCP - General Internal Medicine 11/23/23 12/03/24 documented as of this encounter
--- OUTSIDE RECORDS SUMMARY | 2024-12-31 09:08 | XMS_ITS | Encounter Summary ---
Author Organization Healthcare Address [address] [place] [address] Care Team Providers Care Flake Miller [employer] Name Role Phone Mane Castro MD Primary Care Provider [phone] Ese Barone APRN Primary Care Provider [phone] Encounter Details Date Type Department Care Team (Late Contact Info) Description 08/21/2023 Orders Only External Location [address] [place] [address] Provider, External Social History Tobacco Use Types [...] AM EDT Office Visit [facility] General Surgery [address] [place] [address] Garrett Galvin MD [address] [place] [address] documented as of this encounter Procedures Procedure Name Priority Date/Time Associated Diagnosis Comments CT THORACIC OUTSIDE IMAGES 08/21/2023 9:25 AM EDT documented in this encounter Results * CT THORACIC OUTSIDE IMAGES (08/21/2023 9:25 AM EDT) Anatomical Region Laterality Modality Computed Tomogra phy 08/21/2023 9:25 AM EDT us External Provider IMG CT PROCEDURES Final Result documented in this encounter Visit Diagnoses Not on filedocumented in this encounter Care Teams Flake [employer] Oats Relationship Specialty Start Date End Date Mane Castro MD [address] [facility] [address] [address] PCP - General Internal Medicine 11/23/23 12/03/24 Ese Barone APRN [address] [place] [address] PCP - General 12/04/24 documented as of this encounter
--- OUTSIDE RECORDS SUMMARY | 2024-12-31 09:08 | XMS_ITS | Clinical Summary ---
Author Organization [employer] ([place], [place], [place], [place]) Address [address] [place] [address] Care Team Providers Care Signals Officer Name Role Phone Mane Castro MD Primary Care Provider [phone] Allergies Active Allergy Reactions Criticality Noted Date [...] Date Dipak rded Speak language other than Uzbek at home Not on file 04/01/2023 Want [...] series) 2011 Medicare Initial AWV G0438 03/21/2018 Falls Risk Screening 03/20/2024 Breast Cancer Screening 07/05/2024 07/05/2022, 04/05 Tobacco Cessation Counseling and Screening (12+) 07/18/2024 07/19/2023 COVID-19 VACCINE (5 - 2024-2 6 season) 2024 07/20/2021, 12/16/2020, 04/29/2020, Additional history exists Influenza Vaccine (#1) 2024 , 12/30/2019, 01/11/2018, Additional history exists Pneumococcal 50+ years Completed 10/15/2018, 2016 Medical Devices Implanted Type Area Activities Leader Device Identifier Shelf Expiration Date Model / Serial / Lot Mesh Vntrlght Cir Echo 2 15cm [id number] - [id number] Implanted:Qt y: 1 on 01/24/2023 by Garrett Ireland MD at [facility] IMPLANTS N/A: Abdomen CR BARD:DAVOL 08/15/2023 [id number] / / [id number] Cement Bone Smplx Hv 6194-1-001 - [id number] Implanted:Qt y: 2 on 07/19/2023 at [facility] IMPLANTS Left: Knee GLENYS:[employer] [id number] 11/17/2024 6194-1-00 1 / / [id number] E Tib Cemented L Sz E 76-1430-842- 01 - [id number] Implanted:Qt y: 1 on 07/19/2023 at [facility] IMPLANTS Left: Knee LANETTE:LANETTE [id number] 05/01/2033 42-5320-0 71- / / [id number] Psn Asf Mc 14mm Ve 8-11ef 69-8113-736- 14 - [id number] Implanted:Qt y: 1 on 07/19/2023 at [facility] TOTAL JOINT CONSTRUCT Left: Knee LANETTE:LANETTE [id number] 02/09/2028 42-5121-0 08-14 / [id number] Psn Fem Cr Cmt Ccr Nrw Sz 8 L 90-3265-515- 01 - [id number] Implanted:Qt y: 1 on 07/19/2023 at [facility] TOTAL JOINT CONSTRUCT Left: Knee LANETTE:LANETTE [place] [id number] 05/21/2033 42-5020-0 64-01 / / [id number] Insurance [facility] MEDICARE PPO Advance Directives For more information, please contact: [phone] * Full Code (Latest Code Status on [...] ACLS medications, or cardioversion as indicated. Call PAYMENT SPECIALIST * Full Code Date Activated Date Inactivated Comments 01/24/2023 6:36 AM 01/24/2023 11:53 AM Care Teams Signals Officer Relationship Specialty Start Date End Date Mane Castro MD [address] [place] [address] PCP - General Adolescent Medicine 05/04/22
--- OUTSIDE RECORDS SUMMARY | 2024-12-31 09:08 | XMS_ITS | Encounter Summary ---
Author Organization [employer] ([place], [place], [place], [place]) Address [address] [place] [address] Care Team Providers Care Project Hire Name Role Phone Mane Castro MD Primary Care Provider [phone] Encounter Details Date Type Department Care Team (Late st Contact Info) Description 09/15/2020 Transcribed Document [facility] Family Medicine [address] [place] [address] ProviderRayna MD [address] [place], [place] [id number] Social History Tobacco Use Types Packs/Day Years [...] form. Electronically signed by Rebecca Villanueva Conversion Automotive General Manager Cerner at 07/05/2022 9:10 AM CDT documented in this encounter Plan of Treatment Not on file documented as of this encounter Visit Diagnoses Not on filedocumented in this encounter Care Teams Project Hire Relationship Specialty Start Date End Date Mane Castro MD [address] [place] [address] PCP - General Adolescent Medicine 05/04/22 documented as of this encounter
--- OUTSIDE RECORDS SUMMARY | 2024-12-31 09:08 | XMS_ITS | Encounter Summary ---
Author Organization [facility] Address [address] [place] [address] Care Team Providers Care Global Safety Officer Name Role Phone Lizabeth Ese Luda NUNEZ Primary Care Provid er Encounter Details Date Type Department Care Team (Late st Contact Info) Description 12/12/2024 Patient rounding ([facility] only) [facility] RHEUMATOLOGY [address] [place] [phone] Colette Enamorado RegSched Rep Social History Tobacco Use Types Packs/Day Years Used Date Smoking Tobacco: Former Cigarettes 1.5 10 1 984 - 1994 Smokeless Tobacco: Never Alcohol Use Standard Drinks/Week [...] on file documented as of this encounter Progress Notes * Colette Enamorado RegSched Rep - 12/12/2024 8:57 AM EDT THE FOLLOWING MESSAGE SENT TO THE PATIENT VIA Tweet[employer]e: This is Colette, I am the patient access supervisor fertilizer for your new provider at [facility]. I am reaching out to welcome you to our practice! We feel that patient feedback is crucial to ensuring that we provide the highest quality of care and would like to take this opportunity to ask afew questions about your recent visit. Thinking about your recent visit with us, what things went well? We strive to ensure that we protect your safety and privacy. Is there anything we could have done to improve this during your visit? We are always looking for ways to make each patients experience better. Do you have any suggestionson how we may improve? Overall, were you satisfied with your first visit to our practice? Do you have any questions regarding your visit? Thank you for taking the time to answer these questions today. Please feel free to contact our office at [phone] with any questions or concerns. Thank you and have a wonderful day! PATIENT DID NOT RESPOND documented in this encounter Plan of Treatment Upcoming Encounters Date Type Department Care Team (Late st Contact Info) Description 02/17/2025 11:30 AM EST Appointment [facility] [address] [facility] [address] [place] [address] 02/17/2025 1:30 PM EST Office Visit [facility] HEMATOLOGY & ONCOLOGY [address] [facility] [address] [place] [address] Luda Haile, [employer] [address] [facility] [address] [place] [address] 04/22/2025 4:15 PM EST Office Visit [facility] RHEUMATOLOGY [address] [facility] [address] [place] [address] Yeison Estrada MD [address] [facility] [address] [place] [address] documented as of this encounter Visit Diagnoses Not on filedocumented in this encounter Care Teams Global Safety Officer Relationship Specialty Start Date End Date Ese Barone APRN [address] [facility] [address] [facility] [address] [place] [address] PCP - General Family Medicine 01/24/22 documented as of this encounter
--- OUTSIDE RECORDS SUMMARY | 2024-12-31 09:08 | XMS_ITS | Clinical Summary ---
Author Organization [facility] Address [address] [place] [address] Care Team Providers Care Printing Film Stripper Name Role Phone Ese Barone APRN Primary Care Provid er Allergies Active Allergy Reactions Criticality Noted Date Comments Furosemide Itching Low 05/06/2019 Losartan Itching Low 05/06/2019 Morphine Other (See Comments) Medium 01/24/2023 Altered mental status Penicillins Angioedema High 02/16/2019 Sulfa Antibiotics Itching Low 10/02/2023 Medications * This document contains information received from the source organization and may not represent a complete record from that organization. MAGNESIUM-ZINC PO Take 1 tablet/day by mouth Daily. Active acetaminophen (TYLENOL) 500 MG tablet Take 1 tablet by mouth Every 6 (Six) Hours As Needed for Mild Pain (1-2 tablet as needed for pain). Active bumetanide (BUMEX) 1 MG tablet Take 1 tablet by mouth Daily. 2-3 days per week Active potassium chloride (K-DUR) 10 MEQ CR tablet Take 1 tablet by mouth Daily. With doses of Bumex Active PARoxetine (PAXIL) 10 MG tablet Take 1 tablet by mouth Every Morning. Active meclizine (ANTIVERT) 25 MG tablet 3 Active ondansetron (ZOFRAN) 4 MG tablet 4 Active hydroCHLOROthia zide 25 MG tablet Take 1 tablet by mouth Daily. Active lisinopril (PRINIVIL,ZESTR IL) 20 MG tablet Take 1 tablet by mouth Daily. Active meloxicam (MOBIC) 7.5 MG tablet Take 1 tablet by mouth Every Night. 4 Active benzonatate (TESSALON) 100 MG capsule 5 Active cefdinir (OMNICEF) 300 MG capsule Take 1 capsule by mouth Every 12 (Twelve) Hours. 5 Active famotidine (PEPCID) 40 MG tablet Take 1 tablet by mouth Daily. 5 Active Zepbound 5 MG/0.5ML solution auto-injector ADMINISTER 5 MG UNDER THE SKIN 1 TIME A WEEK 5 Active Semaglutide (OZEMPIC, 0.25 OR 0.5 MG/DOSE, SC) Inject 0.25 mg under the skin into the appropriate area as directed 1 (One) Time Per Week. Active Active Problems Problem Noted Date Diagnosed Date Rheumatoid factor positive 12/05/2024 Assessment & Plan (12/05/2024 12:20 PM EDT): Positive rheumatoid factor first noted in 2012. Large rheumatologic workup at that time showed no evidence of rheumatoid arthritis. Recent onset of stinging and burning in the feet occurring primarily at night. Not associated with joint swelling. Some discomfort and stiffness in the PIP and DIP joints with bony enlargement. No joint swelling of the hands. No prolonged morning stiffness. Rheumatoid factor [...] View Bilateral Primary osteoarthritis of both hands 12/05/2024 Assessment & Plan (12/05/2024 12:20 PM EDT): She has Heberden's and Toño's nodes. Paresthesia of both feet 12/05/2024 Assessment & Plan (12/05/2024 12:20 PM EDT): She probably has a small fiber neuropathy, possibly associated with her history of diabetes, previously treated with metformin. Chronic fatigue 12/05/2024 Assessment & Plan (12/05/2024 12:20 PM EDT): Longstanding problem. 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 07/15/2022 Cancer Staging:Clinical stage from 07/15/2022:Stage I(Small lymphocytic leukemia) - Signed by Tamia Hernandez MD on 07/15/2022 Palpitations 08/15/2019 Dizziness 08/15/2019 Essential hypertension 08/15/2019 Other fatigue 08/15/2019 Precordial pain 08/15/2019 Pulmonary hypertension 08/15/2019 ESCOBEDO (dyspnea on exertion) 08/15/2019 Abdominal pain 05/21/2019 FTT (failure to thrive) in adult 05/21/2019 Dehydration 05/21/2019 Inadequate oral nutritional intake 05/21/2019 Sleep apnea 05/21/[address] 05/13/2019 Perforated diverticulum 02/16/2019 Abdominal hernia Encounters Date Type Department Care Team Description 12/12/2024 Patient rounding ([facility]) [facility] RHE[facility]OLOG[facility] [address] [address] Colette Enamorado RegSched Rep 12/09/2024 Results Follow-Up [facility] [address] [address] Yeison Estrada MD 12/05/2024 11:45 AM EDT Ancillary Procedure [facility] [address] [address] 12/05/2024 11:00 AM EDT Office Visit [facility] [address] [address] Yeison Estrada MD Rheumatoid factor positive (Primary Dx); Primary osteoarthritis of both hands; Paresthesia of both feet; Chronic fatigue 12/05/2024 Travel from Last 3 Months Family History Medical History Relation Name Comments Atrial fibrillation Brother Hypertension Father Stroke Father Leukemia Maternal Uncle Hypertension Mother Stroke Mother Hodgkin's lymphoma Niece Atrial fibrillation Sister Breast cancer Neg Hx Ovarian cancer Neg Hx Relation Name Status Comments Brother Alive Father Maternal Uncle Mother Niece Alive Sister Alive Social History Tobacco Use Types Packs/Day Years Used Date Smoking Tobacco: Former Cigarettes 1.5 10 1 984 - 1993 Smokeless Tobacco: Never Tobacco Cessation:Counseling Given: Not Answered Alcohol Use Standard Drinks/Week Comments Not Currently [...] F) 12/05/2024 10:37 AM EDT Respiratory Rate 16 08/19/2024 12:0 2 PM EDT Oxygen Saturation 96% 08/19/2024 12: 02 PM EDT Inhaled Oxygen Concentration - - Weight 99.3 kg (218 lb 14.4 oz) 025 10:37 AM EDT Height 171.5 cm (5' 7.52 ) 12/05/2024 1 0:37 AM EDT Body Mass Index 33.76 12/05/2024 10:37 AM EDT Plan of Treatment Upcoming Encounters Date Type Department Care Team (Late st Contact Info) Description 02/17/2025 11:30 AM EST Appointment [facility] [address] [facility] [address] [place] [phone] 02/17/2025 1:30 PM EST Office Visit [facility] HEMATOLOGY & ONCOLOGY [address] [facility] [address] [place] [phone] Luda Haile, COMMUNITY DEVELOPMENT AIDE [address] [facility] [address] [place] [address] 04/22/2025 4:15 PM EST Office Visit [facility] [address] [facility] [address] [place] [phone] Yeison Estrada MD [address] [facility] [address] [place] [address] Health Maintenance Due Date Last Done Comments DXA SCAN 1950 DIABETIC EYE EXAM 1961 DIABETIC FOOT EXAM 1961 URINE MICROALBUMIN-CREATININ E RATIO (uACR) 1961 COLOGUARD 1996 COLON CANCER SCREENING 5 YEA R SIGMOIDOSCOPY [address] COLONOGRAPHY 1996 FIT Testing (1 year) 1996 ANNUAL WELLNESS VISIT 05/06/2019 COLORECTAL CANCER SCREENING 03/20/2020 FECAL OCCULT BLOOD TEST 03/20/2020 03/20/2019 HEMOGLOBIN A1C 01/12/2024 07/13/2023, 04/2 07/2023, 05/06/2019 MAMMOGRAM 09/28/2024 09/28/2022, 06/18, 07/05/2022, Additional history exists INFLUENZA VACCINE 10/18/2024 12/07/2023, , 12/30/2019, Additional history exists COVID-19 Vaccine (6 - Modern a risk season) 2024 12/07/2023, 07/20/2021, 12/16/2020, Additional history exists ZOSTER VACCINE (2 of 2) 11/22/2024 09/27/2024 TDAP/TD VACCINES (2 - Td or Tdap) 09/27/2034 Pneumococcal Vaccine 50+ Completed 025, 10/15/2018, 05/05/2016 HEPATITIS C SCREENING Completed 12/05/2024 Medical Devices Implanted Type Area Second Watch Sergeant Device Identifier Shelf Expiration Date Model / Serial / Lot Stplr Crv Cut Contrd 3mm Neymar Cs40b - [id number] Implanted:Qty : 1 on 02/16/2019 by Humberto Cordova MD at [facility] Implant N/A: Abdomen [employer] J 06/18/2023 CS40B / / [id number] Reload Stplr Cut Contrd Std 3 Neymar Cr40b - [id number] Implanted:Qty : 1 on 02/16/2019 by Humberto Cordova MD at [facility] Implant N/A: Abdomen [employer] J 03/19/2022 CR40B / / [id number] Stplr Lnr Cut Prox Thk 55mm Grn Tct55 - [id number] Implanted:Qty : 1 on 05/13/2019 by Kade Lance MD at [facility] Implant N/A: Abdomen [employer] J 03/19/2024 TCT55 / / [id number] Description:[place] only rem ain in patient Stplr Endo Crv 29mm Ecs29a - [id number] Implanted:Qty : 1 on 05/13/2019 by Kade Lance MD at [facility] Implant N/A: Abdomen [employer] J 02/17/2024 ECS29A / / [id number] Description:[place] only imp lant left in patient. Procedures Procedure Name Priority Date/Time Associated Diagnosis Comments HEPATITIS C VIRUS INTERPRETATION Routine 12/05/2024 12:15 PM EDT CBC AND DIFFERENTIAL Routine 12/05/2024 12:15 PM EDT HEPATITIS PANEL, ACUTE Routine 12:15 PM EDT Chronic fatigue BACILIO BY IFA, REFLEX 9-BIOMARKERS PROFILE Routine 12/05/2024 12:15 PM EDT Rheumatoid factor positive RHEUMATOID FACTOR, QUANT Routine 12/05/2024 12:15 PM EDT Rheumatoid factor positive SEDIMENTATION RATE Routine 12/05/2024 12 :15 PM EDT Rheumatoid factor positive CYCLIC CITRUL PEPTIDE ANTIBODY, IGG/IGA Routine 12/05/2024 12:15 PM EDT Rheumatoid factor positive C-REACTIVE PROTEIN Routine 12/05/2024 12 :15 PM EDT Rheumatoid factor positive COMPREHENSIVE METABOLIC PANEL Routine 12/05/2024 12:15 PM EDT Rheumatoid factor positive XR HAND 2 VW BILATERAL Routine 5 11:44 AM EDT Rheumatoid factor positive XR FOOT 3+ VW BILATERAL Routine 12/06/19 25 11:44 AM EDT Rheumatoid factor positive SCANNED - LABS 11/04/2024 SCANNED - MAMMO 07/05/2022 HEMOGLOBIN A1C Routine 05/06/2019 12:37 PM EST POCT OCCULT BLOOD STOOL STAT 03/20/19 20 3:04 PM EST from Last 3 Months or Most Recently Relevant to Health Maintenance Results * BACILIO by IFA, Reflex 9-biomarkers profile [...] 12:1 5 PM EDT 12/05/2024 Narrative [facility] (AMBULATORY) - 12/09/2024 9:07 AM EDT Performed at: - [address] [id number] [employer] Wafers Saw Operator: Guerrero Suero PhD, Phone: [phone] Patient Fasting: N us Yeison Estrada MD LAB BLOOD ORDERABLES Final Res ult [facility] [address] [place] [address], [facility] [address] [place] [address], * Hepatitis C Virus Interpretation (12/05/2024 12:15 PM EDT) Interpretation Comment [facility] Comment: Not infected with HCV unless early or acute infection is suspected (which may be delayed in an immunocompromised individual), or other evidence exists to indicate HCV infection. 12/05/2024 12:1 5 PM EDT 12/05/2024 Narrative [facility] (AMBULATORY) - 12/09/2024 9:07 AM EDT Performed at: [address] [id number] [employer] W[employer] Saw Operator: Guerrero Suero PhD, Phone: [phone] Patient Fasting: N us Yeison Estrada MD LAB BLOOD ORDERABLES Final Res ult Performing Organization Address [facility] Co de Phone Number [facility] [address] [place] [address], [facility] [address] [place] [address], * (ABNORMAL) Rheumatoid Factor (12/05/2024 12:15 PM EDT) Pathologist [facility] RA Latex Turbid 68.4(H) <14.0 IU/mL [facility] Blood 12/05/2024 12:1 5 PM EDT 12/05/2024 Narrative [facility] (AMBULATORY) - 12/09/2024 9:07 AM EDT Performed at: [address] [id number] [employer] W[employer] Saw Operator: Guerrero Suero PhD, Phone: [phone] Patient Fasting: N us Yeison Estrada MD LAB BLOOD ORDERABLES Final Res ult Performing Organization Address [facility] Co de Phone Number [facility] [address] [place] [address], [facility] [address] [place] [address], * Cyclic Citrul Peptide Antibody, IgG / IgA (12/05/2024 12:15 PM EDT) Pathologist [facility] CCP Antibodies IgG/IgA 8 0 - 19 units [facility] Comment: Negative <20 Weak positive 20 - 39 Moderate positive 40 - 59 Strong positive >59 Blood 12/05/2024 12:1 5 PM EDT 12/05/2024 Narrative [facility] (AMBULATORY) - 12/09/2024 9:07 AM EDT Performed at: [address] [id number] [employer] W[employer] Saw Operator: Guerrero Suero PhD, Phone: [phone] Patient Fasting: N us Yeison Estrada MD LAB BLOOD ORDERABLES Final Res ult Performing Organization Address City/[facility]/ZIP Co de Phone Number [facility] [address] [place] [address], [facility] [address] [place] [address], * Hepatitis Panel, Acute (12/05/2024 12:15 PM EDT) Pathologist [facility] Hep A IgM Negative Negative [facility] Comment: A negative anti-HAV IgM result suggests no recent or current HAV infection. Hepatitis B Surface Ag Negative Negative [facility] Hep B Core IgM Negative Negative [facility] Hepatitis C Ab Non Reactive Non Reactive [facility] Blood 12/05/2024 12:1 5 PM EDT 12/05/2024 Narrative [facility] (AMBULATORY) - 12/09/2024 9:07 AM EDT Performed at: [address] [place] [id number] [employer] W[employer] Saw Operator: Guerrero Suero PhD, Phone: [phone] Patient Fasting: N us Yeison Estrada MD LAB BLOOD ORDERABLES Final Res ult Performing Organization Address [facility] Co de Phone Number [facility] [address] [place] [address], [facility] [address] [place] [address], * Sedimentation Rate (12/05/2024 12:15 PM EDT) [facility] Sed Rate 15 0 - 30 mm/hr [facility] Blood 12/05/2024 12:1 5 PM EDT 12/05/2024 [facility] (AMBULATORY) - 12/09/2024 9:07 AM EDT Performed at: [address] [place] [id number] [employer] W[employer] Saw Operator: Lewis Henley MD, Phone: [phone] Patient Fasting: N us Yeison Estrada MD LAB BLOOD ORDERABLES Final Res ult [facility] ([facility]) [address] [place] [address], [place] [phone] [facility] [address] [place] [address], * CBC & Differential (12/05/2024 12:15 PM [...] - 12/09/2024 9:07 AM EDT Performed at: [address] [place] [id number] [employer] W[employer] Saw Operator: Lewis Henley MD, Phone: [phone] Patient Fasting: N us Yeison Estrada MD LAB BLOOD ORDERABLES Final Res ult Performing Organization Address [facility] Co de Phone Number [facility] (AMBULATORY) [address] [place] [address], [facility] [address] [place] [address], * C-reactive Protein (12/05/2024 12:15 PM EDT) [facility] C-Reactive Protein <0.30 0.00 - 0.50 mg/dL [facility] Blood 12/05/2024 12:1 5 PM EDT 12/05/2024 Narrative [facility]) - 12/09/2024 9:07 AM EDT Performed at: [address] [place] [id number] [employer] W[employer] Saw Operator: Lewis Henley MD, Phone: [phone] Patient Fasting: N us Yeison Estrada MD LAB BLOOD ORDERABLES Final Res ult Performing Organization Address City/[facility]/ZIP Co de Phone Number [facility] ([facility]) [address] [place] [address], [facility] [address] [place] [address], * (ABNORMAL) Comprehensive Metabolic Panel (12/05/2024 12:15 PM EDT) Pathologist [facility] Glucose 84 65 - 99 mg/dL [facility] [...] - 12/09/2024 9:07 AM EDT Performed at: [address] [id number] [employer] Saw Operator: Lewis Henley MD, Phone: [phone] Patient Fasting: N us Yeison Estrada MD LAB BLOOD ORDERABLES Final Res ult [facility] ([facility]) [address] [place] [address], [facility] [address] [place] [address], * XR Hand 2 View Bilateral (12/05/2024 [...] MD 12/09/2024 4:43 PM EDT Workstation ID: [id number] DxDesc DxDesc Narrative 12/09/2024 4:43 PM EDT [...] MD 12/09/2024 4:43 PM EDT Workstation ID: [id number] [employer] Yeison Estrada MD IMG DIAGNOSTIC IMAGING ORDERAB [...] MD 12/09/2024 4:43 PM EDT Workstation ID: [id number] [employer] DxDesc Narrative 12/09/2024 4:43 PM EDT XR [...] MD 12/09/2024 4:43 PM EDT Workstation ID: [id number] DxDesc DxDesc Result [facility] Yeison Estrada MD IMG DIAGNOSTIC IMAGING ORDERAB LES Final Result * LABS SCANNED (11/04/2024) [facility] LAB BLOOD ORDERABLES Final Re sult * SCANNED - MAMMO (07/05/2022) Anatomical Region Laterality Modality Other [facility] CHART REVIEW TABS Final Re sult * Hemoglobin A1c (05/06/2019 12:37 PM EST) Pathologist [facility] Hemoglobin A1C 5.40 4.80 - 5.60 % 05/06/2019 1:34 PM EST [facility] Blood Venipuncture / Unknown 05/06/2019 12:37 PM EST 05/06/2019 12:52 PM EST Narrative [facility] - 05/06/2019 1:34 PM EST Hemoglobin A1C Ranges: Increased Risk for Diabetes 5.7% to 6.4% Diabetes >= 6.5% Diabetic Goal < 7.0% Kade Lance MD LAB BLOOD ORDERABLES Final Re sult [facility]
[address] [place] [address], * POC Occult Blood Stool (03/20/2019 3:04 PM EST) Pathologist [facility] Fecal Occult Blood Negative Negative [facility] Lot Number [id number] [facility] Expiration Date 62,022 [facility] DEVELOPER [address] NUMBER [id number] [facility] DEVELOPER EXPIRATION DATE 62, [facility] Positive Control Positive Positive [facility] Negative Control Negative Negative [facility] Stool Specimen from rectum / Unknown 03/20/2019 3:04 PM EST us Nicola Khan MD POINT OF CARE TEST ORDERA BLES Final Result [facility]
[address] [place] [id number], from Last 3 Months or Most Recently Relevant to Health Maintenance Insurance [facility] Medicare [employer] PPO Advance Directives Documents on File Type Date Recorded Patient Winder Fixer Expl anation LIVING WILL - SCAN 05/13/2019 8:09 AM bay ng will [id number] * CPR (Attempt to Resuscitate) (Latest Code Status on File) Date Activated Date Inactivated Comments 05/21/2019 4:08 PM 05/22/2019 9:26 PM Question Answer Comments Code Status (Patient has no pulse and is not breathing): CPR (Attempt to Resuscitate) Medical Interventions (Patie nt has pulse or is breathing): Full Level Of Support Discussed With: Patient * CPR (Attempt to Resuscitate) Date Activated Date Inactivated Comments 05/13/2019 1:19 PM 05/15/2019 6:26 PM Question Answer Comments Code Status (Patient has no pulse and is not breathing): CPR (Attempt to Resuscitate) Medical Interventions (Patie nt has pulse or is breathing): Full * CPR (Attempt to Resuscitate) Date Activated Date Inactivated Comments 02/16/2019 6:23 PM 02/21/2019 7:19 PM Question Answer Comments Code Status (Patient has no pulse and is not breathing): CPR (Attempt to Resuscitate) Medical Interventions (Patie nt has pulse or is breathing): Full Level Of Support Discussed With: Patient Care Teams Printing Film Stripper Relationship Specialty Start Date End Date Ese Barone APRN [address] [place] [facility] [address] [facility] [address] [place] [address] PCP - General Family Medicine 01/24/22
--- OUTSIDE RECORDS SUMMARY | 2024-12-31 09:08 | XMS_ITS | Encounter Summary ---
Author Organization [employer] ([place], [place], [place], [place]) Address [address] [place] [address] Care Team Providers Care Stereo Equipment Salesperson Name Role Phone Mane Castro MD Primary Care Provider + [phone] Encounter Details Date Type Department Care Team (Late st Contact Info) Description 09/15/2020 Transcribed Document [facility] [place] [address] ProviderRayna MD [address] [place], [place] [id number] Social History Tobacco Use Types Packs/Day Years [...] : 1950 Associated Diagnoses: None Author: JARRETT JUAREZ APRN Chief Complaint incisional hernia Review of Systems [...] Problems Urinary tract infection / SNOMED CT 638466057 / Confirmed Tachycardia / SNOMED CT 3500820 / Confirmed Cervical stenosis of spine / SNOMED CT 395010870 / Confirmed Sinusitis / SNOMED CT 19256816 / Confirmed Pulmonary hypertension / SNOMED CT 632110542 / Confirmed Emphysema lung / SNOMED CT 516149162 / Confirmed Perforated bowel / SNOMED CT 66510763 / Confirmed Hyperlipidemia / SNOMED CT 50404536 / Confirmed History of obstructive sleep apnea / IMO 10233130 / Confirmed High blood pressure / SNOMED CT 57594583 / Confirmed Diverticulitis / SNOMED CT 759590150 / Confirmed Cataract / SNOMED CT 998623513 / Confirmed Bronchitis / SNOMED CT 82358198 / Confirmed Back pain / SNOMED CT 4954284486 / Confirmed Arthritis / SNOMED CT 3011004 / Confirmed Allergic rhinitis / SNOMED CT 676827638 / Confirmed, Active Problems (16) Allergic rhinitis [...] resection with colostomy. colostomy takedown/colon resection/oophorectomy. Cholecystectomy ([id number]). laminectomy. Physical Examination VS/Measurements Vital Signs/Vital Measures [...] EDT Height Source Measured Height Entry Format [place] Height/Length, [place] (ft) 5 ft Height/Length [place] 7.5 Inch CLINICALHEIGHT 171.45 cm [place] Body Weight 62 kg Weight Source Standing scale Weight Entry Format [place] Weight [place] lb 245 lb CLINICALWEIGHT 111.36 kg Body Surface Area (BSA) 2.22 m2 Body Mass Index 37.9 kg/m2 HI 09/14/2020 13:20 EDT Height Source Measured Height Entry Format [place] Height/Length, [place] (ft) 5 ft Height/Length [place] 7.5 Inch CLINICALHEIGHT 171.45 cm [place] Body Weight 62 kg Weight Source Standing scale Weight Entry Format [place] Weight [place] lb 245 lb CLINICALWEIGHT 111.36 kg Body [...] of motion, Normal strength. Integumentary: Warm, Dry, Green Level. Neurologic: Alert, Oriented. Psychiatric: Cooperative, Appropriate mood & affect. Review / Management Results review: No qualifying data available, Lab results: 09/15/2020 9:02 EDT Potassium POC 4.4 mmol/L . Impression and Plan Condition: Stable. documented in this encounter Plan of Treatment Not on file documented as of this encounter Visit Diagnoses Not on filedocumented in this encounter Care Teams Stereo Equipment Salesperson Relationship Specialty Start Date End Date Mane Castro MD [address] [place] [address] [place] [address] PCP - General Adolescent Medicine 05/04/22 documented as of this encounter
--- OUTSIDE RECORDS SUMMARY | 2024-12-31 09:08 | XMS_ITS | Encounter Summary ---
Author Organization [employer] ([place], [place], [place], [place]) Address [address] [place] [address] Care Team Providers Care Credit Analysis Manager Name Role Phone Mane Castro MD Primary Care Provider [phone] Encounter Details Date Type Department Care Team (Late st Contact Info) Description 09/15/2020 Transcribed Document [facility] [place] [address] [place] [address] ProviderRayna MD [address] [place], [place] [id number] Social History Tobacco Use Types Packs/Day Years [...] Polo MD - 09/15/2020 9:58 AM CDT [facility] Main OR PACU Summary Primary Physician: KATIUSKA POLANCO MD-SUR Finalized Date/Time: 09/15/20 13:17:38 Pt. Name: EARNEST YIN/Sex: 1950 Female Med Rec #: [id number] Physician: KATIUSKA POLANCO MD-SUR Financial #: [id number] Pt. Type: O Room/Bed: ASA/7 Admit/Disch: 09/15/20 08:13:00 - Institution: [facility] Main OR PACU I Case Times Entry 1 In PACU I 09/15/20 11:18:00 Ready for PACU 09/15/20 13:17:00 Discharge Discharge from PACU 09/15/20 13:17:00 I Last Modified By: SOPHIA KHAN RN 09/15/20 13:17:23 [facility] Main OR PACU I Case Times Audit 09/15/20 13:17:23 Visual Education Teacher: PEBBLES Modifier: BILLMY <+> 1 Ready for PACU Discharge <+> 1 Discharge from PACU I Finalized By: SOPHIA KHAN, RN Document Signatures Signed By: SOPHIA KHAN RN 09/15/20 13:17 Electronically signed by Rich [facility] Conversion Mechanical Maintenance Engineer Cerner at 07/05/2022 8:50 AM CDT documented in this encounter Plan of Treatment Not on file documented as of this encounter Visit Diagnoses Not on filedocumented in this encounter Care Teams Credit Analysis Manager Relationship Specialty Start Date End Date Mane Castro MD [address] [place] [address] PCP - General Adolescent Medicine 05/04/22 documented as of this encounter
--- OUTSIDE RECORDS SUMMARY | 2024-12-31 09:08 | XMS_ITS | Encounter Summary ---
Author Organization [employer] ([place], [place], [place], [place]) Address [address] [place] [address] Care Team Providers Care Check Cashier Name Role Phone Mane Castro MD Primary Care Provider [phone] Encounter Details Date Type Department Care Team (Late st Contact Info) Description 09/15/2020 Transcribed Document [facility] [place] [facility] [place] [address] ProviderRayna MD [address] [place] [id number] Social History Tobacco Use Types Packs/Day Years [...] repair of incarcerated incisional hernia with mesh. EMBOSSING PRESS OPERATOR: Juan Coelho. ANESTHESIA: General endotracheal. INDICATIONS: Mohinder [...] taken to recovery room in stable condition. /[id number] MD TING Pope/AMY / Sis / SHANIL /[id number] documented in this encounter Plan of Treatment Not on file documented as of this encounter Visit Diagnoses Not on filedocumented in this encounter Care Teams Check Cashier Relationship Specialty Start Date End Date Mane Castro MD [address] [place] [address] PCP - General Adolescent Medicine 05/04/22 documented as of this encounter
--- OUTSIDE RECORDS SUMMARY | 2024-12-31 09:08 | XMS_ITS | Encounter Summary ---
Author Organization [employer] ([place], [place], [place], [place]) Address [address] [place] [address] Care Team Providers Care Boatswains Mate Name Role Phone Mane Castro MD Primary Care Provider [phone] Encounter Details Date Type Department Care Team (Late st Contact Info) Description 09/14/2020 Transcribed Document [facility] [place] Family Medicine [address] [place] [address] ProviderRayna MD [address] [place], [place] [id number] Social History Tobacco Use Types Packs/Day Years Used Date Smoking Tobacco: Never Assessed Comments Unknown Sex and Gender Information Value Date Recorded Sex Assigned at Not on file Legal Sex Female 2:45 PM CDT Gender Identity Not on file Sexual Orientation Not on file documented as of this encounter Miscellaneous Notes * Cerner Conversion Note - Rayna Polo MD - 09/14/2020 1:20 PM CDT PAT Adult Entered On: 09/14/2020 13:25 EDT Performed On: 09/14/2020 13:20 EDT by Haroon Machado, Rn Height and Weight, Clinical Dosing Height Source : Measured Height Entry Format : [place] Height, Feet : 5 ft(Converted to: 152 cm, 60 Inch) Height, Inches : 7.5 Inch(Converted to: 0 ft 8 Inch, 19.05 cm) Clinical Height : 171.45 cm Weight Source : Standing scale Weight Entry Format : Bailey Clinical Dosing Weight : 111.36 kg Weight, Pounds : 245 lb Body Surface Area (BSA) : 2.22 m2 Body Mass Index : 37.9 kg/m2 (HI) [place] Body Weight : 62 kg VI Singh RN - 09/15/2020 8:32 EDT Health Histories Smoking Status : Former smoker, quit more than 30 days ago Smokeless Tobacco Status : Never Implant/Device Type, Fabric Sourcer and Model : dental bridge Haroon Machado [...] Updated: 09/14/2020 13:20:44 EDT by Haroon Machado, Rn) Substance Abuse: Drug Use Hx: No. Use in Last 12 Months: No. (Last Updated: 09/14/2020 13:18:48 EDT by Haroon Machado, Rn) Infectious Disease History Where are the [...] Haroon Machado Rn - 09/14/2020 13:20 EDT [place] Suicide Severity Rating Scale (C-SSRS) CSSRS Past [...] EDT Legal Guardian : Spouse Support Person/Patient Sign Designer : Yes Support Person/Pt Rep Name : Lewis Yin - Support Person/Pt Rep Contact Information : [phone] Want Family/Rep/Phys Notified of Admit : No Emergency Contact #1 : ` Emergency Contact #1 Phone Number : ` Emergency Contact #1 Relationship : ` Emergency Contact #2 : ` Emergency Contact #2 Phone Number : ` Emergency Contact #2 Relationship : ` Information Obtained From : Patient Primary Language : Omani Communication Barrier : None Founder President And Ceo Needed : No Haroon Machado Rn - 09/14/2020 13:20 EDT Alexi Scale Alexi Sensory Perception : No impairment Alexi Moisture : Rarely moist Aelxi Activity : Walks frequently Alexi Mobility : No limitation Alexi Nutrition : Adequate Alexi Friction and Shear : No apparent problem Alexi Score : 22 Haroon Macahdo Rn - 09/14/2020 13:20 EDT Sleep Apnea Risk Assmt BiPAP/CPAP Ordered for Home Use : Yes Hx of Obstructive Sleep Apnea Diagnosis : Yes BiPAP/CPAP Used at Home : Yes Age over 50 Years Old : Yes Gender Male : No Haroon Machado Rn - 09/14/2020 13:20 EDT Electronically signed by Rebecca Villanueva Conversion Mine Development Engineer Cerner at 07/05/2022 9:00 AM CDT documented in this encounter Plan of Treatment Not on file documented as of this encounter Visit Diagnoses Not on filedocumented in this encounter Care Teams Boatswains Mate Relationship Specialty Start Date End Date Mane Castro MD [address] [place] [address] PCP - General Adolescent Medicine 05/04/22 documented as of this encounter
--- OUTSIDE RECORDS SUMMARY | 2024-12-31 09:08 | XMS_ITS | Clinical Summary ---
Author Organization [facility] Address [address] [place] [address] Care Team Providers Care Sec Accountant Name Role Phone Ese Barone ENRIQUE Primary Care Provider [phone] Allergies Active Allergy Reactions Criticality Noted Date [...] Encounters Date Type Department Care Team Description 12/04/2024 11:00 AM EDT Office Visit [facility] General Surgery [address], [facility] [place] [address] Garrett Galvin MD Personal history of nutritional deficiency (Primary Dx); Recurrent incisional hernia 12/04/2024 Travel 11/25/2024 Telephone [facility] General Surgery [address], [facility] [place] [address] Erica Alicea, FRONT ELEVATOR OPERATOR 11/04/2024 Telephone [facility] General Surgery [address], [facility] [place] [address] Erica Alicea, FRONT ELEVATOR OPERATOR 10/23/2024 Telephone [facility] General Surgery [address], [facility] [place] [address] Erica Alicea, FRONT ELEVATOR OPERATOR from Last 3 Months Family History Medical [...] Mass Index 34.66 12/04/2024 10:55 AM EDT Plan of Treatment Upcoming Encounters Date Type Department Care Team (Late st Contact Info) Description 06/04/2025 11:00 AM EDT Office Visit [facility] General Surgery [address], [address] [place] [address] Garrett Galvin MD [address] [address] Health Maintenance Due Date Last Done Comments [facility]-Bone Density Scan 1950 [facility]-Hepatitis C Screening 1950 [facility]-Medicare Annual Wellness (AWV) 1950 [facility]-/Child/Adol SDOH Screenings 1950 Diabetes: Dental Exam 1961 [facility]- SDOH Screenings 1969 [facility]-Adult SDOH Screenings 1969 [facility]-Diabetes: Hemoglobin A1C 11/03/2019 05/06/2019 [facility]-Breast Cancer Screening 07/05/202406/18, 04/05/2022, 01/24/2022, Additional history exists LCR-TAYHK-48 Vaccine ( season) 2024 12/07/2023, 07/20/2021, 12/16/2020, Additional history exists [facility]-Influenza Vaccine (#1) 11/18/202412/06, 12/08/2020, 12/30/2019, Additional history exists [facility]-Depression Screening 11/22/2024 11/23/2023 [facility]-Zoster Vaccines (2 of 2) 11/22/2024 09/27/2024 [facility]-DTaP,Tdap,and Td Vaccines (2 - Td or Tdap) 09/27/2034 09/27/2024 [facility]-Hepatitis A Vaccines Aged Out 08/06/2018, 12/19 No longer eligible based on patient's age to complete this topic FOBT Discontinued 03/20/2019 [facility]-Colorectal Cancer Screening Discontinued [facility]-Pneumococcal Vaccine: 50+ Years Completed 06/27/2024, 10/15/2018, 05/05/2016 [facility]-RSV Vaccine: 60+ Years or Completed 06/27/2024 [facility]-Obesity Intervention Completed 025, 07/24/2024, 11/23/2023 CT Colonography Discontinued Colonoscopy Discontinued FIT-DNA Discontinued [...] patient's age to complete this topic Insurance Janene YOUNGASPEN Arellano [id number] [facility] MEDICARE Care Teams Sec Accountant Relationship Specialty Start Date End Date Ese Barone APRN [address] [place] [address] PCP - General 12/04/24
--- OUTSIDE RECORDS SUMMARY | 2024-12-31 09:08 | XMS_ITS | Encounter Summary ---
Author Organization [employer] ([place], [place], [place], [place]) Address [address] [place] [address] Care Team Providers Care Filler In Name Role Phone Mane Castro MD Primary Care Provider + [phone] Encounter Details Date Type Department Care Team (Late st Contact Info) Description 09/17/2020 Transcribed Document [facility] [place] Family Medicine [address] [place] [address] ProviderRayna MD [address] [place], [place] [phone] Social History Tobacco Use Types Packs/Day Years [...] Mcneil Virtual RN - 09/17/2020 9:24 EDT Electronically signed by Rebecca Villanueva Conversion Sociology Research Assistant Cerner at 07/05/2022 9:04 AM CDT documented in this encounter Plan of Treatment Not on file documented as of this encounter Visit Diagnoses Not on filedocumented in this encounter Care Teams Filler In Relationship Specialty Start Date End Date Mane Castro MD [address] [place] [address] PCP - General Adolescent Medicine 05/04/22 documented as of this encounter
--- OUTSIDE RECORDS SUMMARY | 2024-12-31 09:08 | XMS_ITS | Encounter Summary ---
Author Organization [employer] ([place], [place], [place], [place]) Address [address] [place] [address] Care Team Providers Care Senior Payroll Manager Name Role Phone Mane Castro MD Primary Care Provider [phone] Encounter Details Date Type Department Care Team (Late st Contact Info) Description 09/15/2020 Transcribed Document [facility] [place] [address] [place] [address] ProviderRayna MD [address] [place], [place] [phone] Social History Tobacco Use Types Packs/Day Years [...] RN Intervention Information: fentaNYL Performed by SOPHIA KHAN, RN on 09/15/2020 11:36:00 EDT fentaNYL,25mcg IV [...] : Yes SOPHIA KHAN RN - 09/15/2020 11:42 EDT Pain Scale Intensity : 6 SOPHIA KHAN RN - 09/15/2020 11:42 EDT Image 4 - Images currently included in the form version of this document have not been included in the text rendition version of the form. Electronically signed by Rebecca Villanueva Conversion Licensing Registration Examiner Cerner at 07/10/2022 1:09 PM CDT documented in this encounter Plan of Treatment Not on file documented as of this encounter Visit Diagnoses Not on filedocumented in this encounter Care Teams Senior Payroll Manager Relationship Specialty Start Date End Date Mane Castro MD [address] [place] [address] PCP - General Adolescent Medicine 05/04/22 documented as of this encounter
--- OUTSIDE RECORDS SUMMARY | 2024-12-31 09:08 | XMS_ITS | Clinical Summary ---
Author Organization [facility] Address [address] [place] [id number] Phone Care Team Providers Care Heel Cover Splitter Name Role Phone Chris SCHULTZ, Milan Andrew [ ] Conditions or Problems Problem Name Problem Code Onset Date Status Entry Date Provider Comment Standard Description Annotate Diverticulitis of large intestine with perforation and abscess without bleeding K57.20 (ICD-10-C M) 04/24 Active 04/24 Laura Glez Diverticulitis of large intestine with perforation and abscess without bleeding Primary pulmonary HTN 44577069 (SNOMED CT) 04/24 Active 04/24 Laura Glez Pulmonary arterial hypertension Medications Medication Instructions Start Date Stop Date Generic Name [facility] Provider INVANZ 1 GM INJECTION SOLUTION RECONSTITUTED Invanz 1G IV Q24hrs- [facility] ERTAPENEM SODIUM [id number] Shilpa Murphy INVANZ 1 GM INJECTION SOLUTION RECONSTITUTED [facility]IUM [id number] Shilpa Murphy BUMETANIDE 1 MG TABS Take 1 tablet by mouth daily BUMETANIDE [id number] Dori Boss KETOROLAC TROMETHAMINE 10 MG TABS Take 1 tablet by mouth daily KETOROLAC TROMETHAMINE [id number] Dori Boss LEVOFLOXACIN 500 MG TABS Take 1 tablet by mouth daily LEVOFLOXACIN 81667705393 Dori Boss MELOXICAM 7.5 MG TABS Take 1 tablet by mouth daily MELOXICAM 98025387558 Dori Boss ONDANSETRON HCL 4 MG TABS Take 1 tablet by mouth daily ONDANSETRON HCL [id number] Dori Boss KLOR-CON M10 10 MEQ CR-TABS Take one (1) tablet by mouth twice a day POTASSIUM CHLORIDE HERMELINDA ER [id number] Dori Boss Medications Administered No information available. [...] Entry Date CPT-DC Discontinue IV antibiotics 2 CPT-91792 CMP CPT-30475 CBC w/o Differential CPT-DC Discontinue IV antibiotics 2 CPT- stat weekly Stat Weekly Labs CPT-wpc Weekly PICC Line Care 04/29 CPT-ca Continue IV antibiotics 2018 CPT-36657 CMP CPT-96102 CBC w/o Differential CPT-ca Continue IV antibiotics 2018 CPT- stat weekly Stat Weekly Labs CPT-ca Continue IV antibiotics 2018 CPT-cwl Weekly Labs (Continue) 02/22 CPT-06162 CMP CPT-36423 CBC w/o Differential CPT-ca Continue IV antibiotics [...]
--- OUTSIDE RECORDS SUMMARY | 2024-12-31 09:08 | XMS_ITS | Encounter Summary ---
Author Organization [employer] ([place], [place], [place], [place]) Address [address] [place] [address] Care Team Providers Care Furniture Assembler And Installer Name Role Phone Mane Castro MD Primary Care Provider + [phone] Encounter Details Date Type Department Care Team (Late st Contact Info) Description 09/16/2020 Transcribed Document [facility] [place] [address] [place] [address] ProviderRayna MD [address] [place], [place] [id number] Social History Tobacco Use Types Packs/Day Years Used Date Smoking Tobacco: Never Assessed Comments Unknown Sex and Gender Information Value Date Recorded Sex Assigned at Not on file Legal Sex Female 2:45 PM CDT Gender Identity Not on file Sexual Orientation Not on file documented as of this encounter Miscellaneous Notes * Cerner Conversion Note - Rayna Polo MD - 09/16/2020 9:00 PM CDT Pain Assessment [...] filedocumented in this encounter Care Teams Furniture Assembler And Installer Relationship Specialty Start Date End Date Mane Castro MD [address] [place] [address] PCP - General Adolescent Medicine 05/04/22 documented as of this encounter
--- OUTSIDE RECORDS SUMMARY | 2024-12-31 09:08 | XMS_ITS | Encounter Summary ---
Author Organization [employer] ([place], [place], [place], [place]) Address [address] [place] [address] Care Team Providers Care Press Pipe Inspector Name Role Phone Mane Castro MD Primary Care Provider [phone] Encounter Details Date Type Department Care Team (Late st Contact Info) Description 09/15/2020 Transcribed Document [facility] [place] Family Medicine [address] [place] [address] ProviderRayna MD [address] [place], [place] [phone] Social History Tobacco Use Types Packs/Day Years Used Date Smoking Tobacco: Never Assessed Comments Unknown Sex and Gender Information Value Date Recorded Sex Assigned at Not on file Legal Sex Female 2:45 PM CDT Gender Identity Not on file Sexual Orientation Not on file documented as of this encounter Miscellaneous Notes * Cerner Conversion Note - Rayna oPlo MD - 09/15/2020 11:39 AM CDT Pain Assessment Entered On: 09/15/2020 12:33 EDT Performed On: 09/15/2020 12:43 EDT by SOPHIA KHAN RN Intervention Information: HYDROmorphone Performed by SOPHIA KHAN RN on 09/15/2020 12:13:00 EDT HYDROmorphone,0.5mg IV [...] version of the form. Electronically signed by Rich, [facility] Conversion Network Design Architect Cerner at 07/05/2022 9:11 AM CDT documented in this encounter Plan of Treatment Not on file documented as of this encounter Visit Diagnoses Not on filedocumented in this encounter Care Teams Press Pipe Inspector Relationship Specialty Start Date End Date Mane Castro MD [address] [place] [address] PCP - General Adolescent Medicine 05/04/22 documented as of this encounter
--- OUTSIDE RECORDS SUMMARY | 2024-12-31 09:08 | XMS_ITS | Encounter Summary ---
Author Organization [facility] Address [address] [place] [address] Care Team Providers Care Carpenter Prototype Name Role Phone Mane Castro MD Primary Care Provider [phone] Ese Barone APRN Primary Care Provider + [phone] Encounter Details Date Type Department Care Team (Late Contact Info) Description 02/19/2024 Orders Only External Location [address] [place] [address] Tamia Hernandez MD [address] [facility] [address] [place] [address] Social History Tobacco Use Types Packs/Day Years [...] Description 06/04/2025 11:00 AM EDT Office Visit [facility] [address] [place] [address] Garrett Galvin MD [address] [address] documented as of this encounter Procedures Procedure [...] documented as of this encounter Care Teams Carpenter Prototype Relationship Specialty Start Date End Date Mane Castro MD [address] [place] [address] PCP - General Internal Medicine 11/23/23 12/03/24 Ese Barone APRN [address] [place] [address] PCP - General 12/04/24 documented as of this encounter
--- OUTSIDE RECORDS SUMMARY | 2024-12-31 09:08 | XMS_ITS | Encounter Summary ---
Author Organization [employer] ([place], [place], [place], [place]) Address [address] [place] [address] Care Team Providers Care Coagulating Drying Supervisor Name Role Phone Mane Castro MD Primary Care Provider [phone] Encounter Details Date Type Department Care Team (Late st Contact Info) Description 09/15/2020 Transcribed Document [facility] [place] Family Medicine [address] [place] [address] ProviderRayna MD [address] [place], [place] [phone] Social History Tobacco Use Types Packs/Day Years Used Date Smoking Tobacco: Never Assessed Comments Unknown Sex and Gender Information Value Date Recorded Sex Assigned at Not on file Legal Sex Female 2:45 PM CDT Gender Identity Not on file Sexual Orientation Not on file documented as of this encounter Miscellaneous Notes * Cerner Conversion Note - Rayna Polo MD - 09/15/2020 8:29 AM CDT Height and Weight, Clinical Dosing Entered On: 09/15/2020 8:29 EDT Performed On: 09/15/2020 8:29 EDT by VI Singh RN Height and Weight, Clinical Dosing Height Source : Measured Height Entry Format : [place] Height, Feet : 5 ft(Converted to: 152 cm, 60 Inch) Height, Inches : 7.5 Inch(Converted to: 0 ft 8 Inch, 19.05 cm) Clinical Height : 171.45 cm Weight Source : Standing scale Weight Entry Format : [place] Clinical Dosing Weight : 111.36 kg Weight, Pounds : 245 lb Body Surface Area (BSA) : 2.22 m2 Body Mass Index : 37.9 kg/m2 (HI) [place] Body Weight : 62 kg VI iSngh, RN - 09/15/2020 8:29 EDT documented in this encounter Plan of Treatment Not on file documented as of this encounter Visit Diagnoses Not on filedocumented in this encounter Care Teams Coagulating Drying Supervisor Relationship Specialty Start Date End Date Mane Castro MD [address] [place] [address] PCP - General Adolescent Medicine 05/04/22 documented as of this encounter
--- OUTSIDE RECORDS SUMMARY | 2024-12-31 09:08 | XMS_ITS | Encounter Summary ---
Author Organization [facility] Address [address] [place] [address] Care Team Providers Care Link Trainer Mechanic Name Role Phone LizabethEse salter Luda NUNEZ Primary Care Provid er Encounter Details Date Type Department Care Team (Late st Contact Info) Description 12/09/2024 Results Follow-Up [facility] RHEUMATOLOGY [address] [facility] [address] [place] [address] Yeison Estrada MD [address] [address] Social History Tobacco Use Types Packs/Day Years [...] Info) Description 02/17/2025 11:30 AM EST Appointment [facility] [address] [facility] [address] [place] [address] 02/17/2025 1:30 PM EST Office Visit [facility] HEMATOLOGY & ONCOLOGY [address] [facility] [address] [place] [address] Luda Haile, ENGRAVING OPERATOR [address] [facility] [address] [place] [address] 04/22/2025 4:15 PM EST Office Visit [facility] RHEUMATOLOGY [address] [facility] [address] [place] [address] Yeison Estrada MD [address] [facility] [address] [place] [address] documented as of this encounter Visit Diagnoses Not on filedocumented in this encounter Care Teams Link Trainer Mechanic Relationship Specialty Start Date End Date Ese Barone, ENRIQUE [address] [facility] [address] [place] [address] PCP - General Family Medicine 01/24/22 documented as of this encounter
--- OUTSIDE RECORDS SUMMARY | 2024-12-31 09:08 | XMS_ITS | Encounter Summary ---
Author Organization [facility] Address [address] [place] [address] Care Team Providers Care Green Belt Name Role Phone Mane Castro MD Primary Care Provider [phone] Ese Barone APRN Primary Care Provider +- [phone] Encounter Details Date Type Department Care Team (Late Contact Info) Description 08/21/2023 Orders Only External Location [address] [place] [address] Provider, External Social History Tobacco Use Types [...] [facility] [address], 1st [place] [address] Garrett Galvin MD [address] [place] [address] documented as of this encounter Procedures Procedure [...] on filedocumented in this encounter Care Teams Green Belt Relationship Specialty Start Date End Date Mane Castro MD [address] [place] [facility] [address] [address] PCP - General Internal Medicine 11/23/23 12/03/24 Ese Barone APRN [address] [place] [address] PCP - General 12/04/24 documented as of this encounter
--- OUTSIDE RECORDS SUMMARY | 2024-12-31 09:08 | XMS_ITS | Encounter Summary ---
Author Organization [employer] ([place], [place], [place], [place]) Address [address] [place] [address] Care Team Providers Care Telecommunications Engineer Name Role Phone Mane Castro MD Primary Care Provider [phone] Encounter Details Date Type Department Care Team (Late st Contact Info) Description 09/15/2020 Transcribed Document [facility] [place] Family Medicine [address] [place] [address] ProviderRayna MD [address] [place], [place] [address] Social History Tobacco Use Types Packs/Day Years [...] EDT Pain Scale Intensity : 2 Ira Noe, Non Emp RN - 09/16/2020 17:39 EDT Image 4 - Images currently included in the form version of this document have not been included in the text rendition version of the form. documented in this encounter Plan of Treatment Not on file documented as of this encounter Visit Diagnoses Not on filedocumented in this encounter Care Teams Telecommunications Engineer Relationship Specialty Start Date End Date Mane Castro MD [address] [place] [address] PCP - General Adolescent Medicine 05/04/22 documented as of this encounter
--- OUTSIDE RECORDS SUMMARY | 2024-12-31 09:08 | XMS_ITS | Encounter Summary ---
Author Organization [employer] ([place], [place], [place], [place]) Address [address] [place] [address] Care Team Providers Care Cast Iron Dipper Name Role Phone Mane Castro MD Primary Care Provider [phone] Encounter Details Date Type Department Care Team (Late st Contact Info) Description 09/16/2020 Transcribed Document [facility] [place] Medicine [address] [place] [address] ProviderRayna MD [address] [place], [place] [id number] Social History Tobacco Use Types Packs/Day Years [...] Performed On: 09/16/2020 15:27 EDT by MAKAYLA DC, RN-Rotary Drier Feeder Initial Assessment I Previously Documented Living Environment : No qualifying data available. Living Situation : Home Patient Lives With : Spouse Is the Patient a Caregiver at Home? : No Emergency Contact #1 : `Lewis Yin Emergency Contact #1 Phone Number : `[phone] Emergency Contact #1 Relationship : ` Emergency Contact #2 : ` Emergency Contact #2 Phone Number : ` Emergency Contact #2 Relationship : ` Enter Doctors Name : lul sam Does Patient have PCP Listed? : Yes Patient's Home Caregiver Name/Relationship : Fidelia Yin Patient's Home Caregiver Phone Number : `[phone] Medical Durable Power of Cutting Machine Fixer Name : yes - MAKAYLA DC RN-Rotary Drier Feeder - 09/16/2020 15:27 EDT Initial Assessment II Sensory and Motor Deficits : None Current Home Treatments and Equipment : None MAKAYLA DC RN-Rotary Drier Feeder - 09/16/2020 15:27 EDT Discharge Needs I Anticipated Discharge Date : 09/17/2020 EDT Anticipated Discharge To, CM : Home independently, Home with home health Current Home Treatment/Equipment : Current Home Treatment/Equipment No qualifying data available. Post Acute/Home Treatments : None Documentation Status Complete : Yes MAKAYLA DC RN-Rotary Drier Feeder - 09/16/2020 15:27 EDT Discharge Needs II Professional Skilled Services : Professional Skilled Services No qualifying data available. Needs Assistance with Transportation : No Discharge Options Discussed with Patient : Discharge transportation, DME, Home Health MAKAYLA DC RN-Rotary Drier Feeder - 09/16/2020 15:27 EDT Narrative Note Narrative [...] . DCP: home vs hh MAKAYLA DC RN-Rotary Drier Feeder - 09/16/2020 15:27 EDT Electronically signed by Rebecca Villanueva Conversion Portable Feed Mill Operator Cerner at 07/05/2022 8:39 AM CDT documented in this encounter Plan of Treatment Not on file documented as of this encounter Visit Diagnoses Not on filedocumented in this encounter Care Teams Cast Iron Dipper Relationship Specialty Start Date End Date Mane Castro MD [address] [place] [address] PCP - General Adolescent Medicine 05/04/22 documented as of this encounter
--- OUTSIDE RECORDS SUMMARY | 2024-12-31 09:08 | XMS_ITS | Encounter Summary ---
Author Organization [employer] ([place], [place], [place], [place]) Address [address] [place] [address] Care Team Providers Care Senior Hadoop Developer Name Role Phone Mane Castro MD Primary Care Provider [phone] Encounter Details Date Type Department Care Team (Late st Contact Info) Description 09/17/2020 Transcribed Document [facility] [place] [address] [place] [address] ProviderRayna MD [address] [place] [address] Social History Tobacco Use Types [...] Polo MD - 09/17/2020 10:28 AM CDT [facility] [place], [place] [id number] EARNEST YIN :1950 Visit Time:09/15/2020 Your Visit Summary Your Care Team Admitting Physician - KATIUSKA POLANCO MD-ALTHEA Attending Physician - KATIUSKA POLANCO MD-SUR Primary Care Physician - MINESH CEE NP-[facility] Referring Physician - KATIUSKA POLANCO MD-SUR [...] POLANCO When 09/30/2020 02:30 PM EDT Comments Zoom surgical follow up. Appointment has been made. Where: [address] [facility] [address] [place] [address]- Medications What How Much When Instructions Next Dose acetaminophen-hydrocodone (acetaminophen-HYDROcodone 325 mg-5 mg oral tablet) 1-2 tabs Oral Every 6 Hours as needed for for pain Pickup at [facility] as needed ondansetron (Zofran 4 mg oral tablet) 1 Tablet(s) Oral Every 8 Hours as needed for Nausea Pickup at [facility] # as needed bumetanide (bumetanide 1 mg [...] have not had this today Pharmacy Information [facility] #: [address] [phone] Take your medications faithfully. Do NOT skip [...] if you see any changes. ??? Take omox-amg-ywzicwr and prescription medicines only as told by [...] provider. Document Revised: 04/07/2018 Document Reviewed: 12/06/2017 [employer] Patient Education ?? 2020 [employer]. Laparoscopic Inguinal Hernia Repair, Adult Laparoscopic [...] including vitamins, herbs, eye drops, creams, and mfib-jko-grmlqjz medicines. ??? Any problems you or family [...] diabetes medicines or blood thinners. ? Taking aipg-cou-bbmnlon medicines, vitamins, herbs, and supplements. ? Taking [...] provider. Document Revised: 08/14/2019 Document Reviewed: 06/15/2017 [employer] Patient Education ?? 2020 [employer]. Laparoscopic Inguinal Hernia Repair, Adult, Care [...] and water are not available, use hand purchasing expeditor. ? Change your dressing as told by [...] allowed to take sponge baths. ??? Take tozs-rmm-iizwmpb and prescription medicines only as told by your health care provider. ??? To prevent or treat constipation while you are taking prescription pain medicine, your health care provider may recommend that you: ? Drink enough fluid to keep your urine pale yellow. ? Take obfn-dth-neectda or prescription medicines. ? Eat foods that [...] provider. Document Revised: 08/14/2019 Document Reviewed: 06/15/2017 [employer] Patient Education ?? 2019 [employer]. acetaminophen and hydrocodone (a SEET a MIN oh fen and lesly cheryl KOE done) Hycet, Lorcet, Orondo, Verdrocet, Vicodin, Xodol, Zamicet What is the [...] may report side effects to FDA at 6-911-BMB-6483. What other drugs will affect acetaminophen and [...] affect acetaminophen and hydrocodone, including prescription and meua-pwo-dyytcvx medicines, vitamins, and herbal products. Not all [...] to ensure that the information provided by [employer]. ('[employer]') is accurate, up-to-date, and complete, but no guarantee is made to that effect. Drug information contained herein may be time sensitive. [employer] information has been compiled for use by healthcare practitioners and consumers in the [place] and therefore [employer] does not warrant that uses outside of the [place] are appropriate, unless specifically indicated otherwise. [employer]'s drug information does not endorse drugs, diagnose patients or recommend therapy. [employer] drug information is an informational resource designed [...] effective or appropriate for any given patient. [employer] does not assume any responsibility for any aspect of healthcare administered with the aid of information [employer] provides. The information contained herein is not intended to cover all possible uses, directions, precautions, warnings, drug interactions, allergic reactions, or adverse effects. If you have questions about the drugs you are taking, check with your doctor, nurse or pharmacist. Copyright 8931-6234 [employer]. Version: 16.03. Revision Date: 04/21/2020. ondansetron (oral) [...] may report side effects to FDA at 9-963-WMD-4618. What other drugs will affect ondansetron? Ondansetron [...] interact with ondansetron. This includes prescription and ltds-cpr-ycuhzdg medicines, vitamins, and herbal products. Give a [...] to ensure that the information provided by [employer]. ('[employer]') is accurate, up-to-date, and complete, but no guarantee is made to that effect. Drug information contained herein may be time sensitive. [employer] information has been compiled for use by healthcare practitioners and consumers in the [place] and therefore [employer] does not warrant that uses outside of the [place] are appropriate, unless specifically indicated otherwise. [employer] drug information does not endorse drugs, diagnose patients or recommend therapy. [employer] drug information is an informational resource designed [...] effective or appropriate for any given patient. [employer] does not assume any responsibility for any aspect of healthcare administered with the aid of information [employer] provides. The information contained herein is not intended to cover all possible uses, directions, precautions, warnings, drug interactions, allergic reactions, or adverse effects. If you have questions about the drugs you are taking, check with your doctor, nurse or pharmacist. Copyright 5059-2935 [employer]. Version: 13.01. Revision Date: 01/08/2016. Emergency Awareness [...] Assistance with quitting is available by contacting 5-400-AFVY-NOW. This is a free resource providing counseling, [...] was given the opportunity to ask questions. Patient/Locomotive Engineer Name: Patient/Locomotive Engineer Signature: Relationship to Patient: Clinician/Hospital Locomotive Engineer Signature: Date: documented in this encounter Plan of Treatment Not on file documented as of this encounter Visit Diagnoses Not on filedocumented in this encounter Care Teams Senior Hadoop Developer Relationship Specialty Start Date End Date Mane Castro MD [address] [place] [address] PCP - General Adolescent Medicine 05/04/22 documented as of this encounter
--- OUTSIDE RECORDS SUMMARY | 2024-12-31 09:08 | XMS_ITS | Encounter Summary ---
Author Organization [employer] ([place], [place], [place], [place]) Address [address] [place] [address] Care Team Providers Care Dye And Chemical Coordinator Name Role Phone Mane Castro MD Primary Care Provider [phone] Encounter Details Date Type Department Care Team (Late st Contact Info) Description 09/15/[address] [facility] [place] Family Medicine [address] [place] [address] ProviderRayna MD [address] [place], [place] [id number] Social History Tobacco Use Types Packs/Day Years [...] Ambulatory Legal Guardian : Spouse Support Person/Patient Computer Forensics Technician : Yes Support Person/Pt Rep Name : Lewis Yin - Support Person/Pt Rep Contact Information : [phone] Want Family/Rep/Phys Notified of Admit : No Emergency Contact #1 : `Lewis Yin Emergency Contact #1 Phone Number : `[phone] Emergency Contact #1 Relationship : ` Emergency Contact #2 : ` Emergency Contact #2 Phone Number : ` Emergency Contact #2 Relationship : ` Information Obtained From : Patient Primary Language : Stateless Communication Barrier : None Lamp Decorator Needed : No ANTWAN REGALADO RN - [...] Scale Risk Level : 25-45 Medium Risk [place] Fall Interventions : Adequate lighting, Personal items within reach ANTWAN REGALADO RN - 09/15/2020 13:34 EDT Health Histories Smoking Status : Former smoker, quit more than 30 days ago Smokeless Tobacco Status : Never Implant/Device Type, It Professional and Model : dental bridge ANTWAN REGALADO [...] (Last Updated: 09/14/2020 13:20:44 EDT by Haroon Machado Rn) Substance Abuse: Drug Use Hx: No. Use in Last 12 Months: No. (Last Updated: 09/14/2020 13:18:48 EDT by Haroon Machado, Rn) Height and Weight, Clinical Dosing Height Source : Measured Height Entry Format : [place] Height, Feet : 5 ft(Converted to: 152 cm, 60 Inch) Height, Inches : 7.5 Inch(Converted to: 0 ft 8 Inch, 19.05 cm) Clinical Height : 171.45 cm Weight Source : Standing scale Weight Entry Format : [place] Clinical Dosing Weight : 111.36 kg Weight, Pounds : 245 lb Body Surface Area (BSA) : 2.22 m2 Body Mass Index : 37.9 kg/m2 (HI) [place] Body Weight : 62 kg ANTWAN REGALADO [...] ANTWAN REGALADO RN - 09/15/2020 13:34 EDT [place] Suicide Severity Rating Scale (C-SSRS) CSSRS Past [...] ANTWAN REGALADO RN - 09/15/2020 13:34 EDT documented in this encounter Plan of Treatment Not on file documented as of this encounter Visit Diagnoses Not on filedocumented in this encounter Care Teams Dye And Chemical Coordinator Relationship Specialty Start Date End Date Mane Castro MD [address] [place] [address] PCP - General Adolescent Medicine 05/04/22 documented as of this encounter
--- OUTSIDE RECORDS SUMMARY | 2024-12-31 09:08 | XMS_ITS | Encounter Summary ---
Author Organization [employer] ([place], [place], [place], [place]) Address [address] [place] [address] Care Team Providers Care Clinical Support Associate Name Role Phone Mane Castro MD Primary Care Provider [phone] Encounter Details Date Type Department Care Team (Late st Contact Info) Description 09/15/2020 Transcribed Document [facility] [place] [address] [place] [address] ProviderRayna MD [address] [place], [place] [phone] Social History Tobacco Use Types Packs/Day Years [...] MD - 09/15/2020 9:58 AM CDT [facility] Main OR Preop Summary Primary Physician: KATIUSKA POLANCO MD-SUR Finalized Date/Time: 09/15/20 12:35:08 Pt. Name: EARNEST YIN/Sex: 1950 Female Med Rec #: [id number] Physician: KATIUSKA POLANCO MD-SUR Financial #: [id number] Pt. Type: O Room/Bed: ASA/7 Admit/Disch: 09/15/20 08:13:00 - Institution: [facility] PreOp Case Times Entry 1 In Preop 09/15/20 08:24:00 Ready for Holding n/a Room Patient Ready for 09/15/20 09:03:00 Surgery Patient Out of Preop 09/15/20 09:30:00 Patient Out of n/a Holding Room Last Modified By: PETE MEDLEY RN 09/15/20 12:35:03 [facility] PreOp Case Times Audit 09/15/20 12:35:03 Restorative Rehab Aide: WILSONDL Modifier: MCGRANM <+> 1 Patient Out of Preop 09/15/20 09:03:34 Restorative Rehab Aide: NAFISA Modifier: WILSONDL <+> 1 Patient Ready for Surgery Finalized By: PETE MEDLEY RN Document Signatures Signed By: PETE MEDLEY RN 09/15/20 12:35 Electronically signed by [facility] Conversion [employer] Financials Developer Cerner at 07/05/2022 8:57 AM CDT documented in this encounter Plan of Treatment Not on file documented as of this encounter Visit Diagnoses Not on filedocumented in this encounter Care Teams Clinical Support Associate Relationship Specialty Start Date End Date Mane Castro MD [address] [place] [address] PCP - General Adolescent Medicine 05/04/22 documented as of this encounter
--- OUTSIDE RECORDS SUMMARY | 2024-12-31 09:08 | XMS_ITS | Encounter Summary ---
Author Organization [facility] Address [address] [place] [address] Care Team Providers Care Roll Former Name Role Phone Ese Barone APRN Primary Care Provid er Encounter Details Date Type Department Care Team (Latest Contact Info) Description 12/05/2024 Travel Social History Tobacco Use Types Packs/Day [...] Info) Description 02/17/2025 11:30 AM EST Appointment [facility] [address] [facility] [address] [place] [id number] 02/17/2025 1:30 PM EST Office Visit [facility] [address] [facility] [address] [place] [phone] Luda Haile, FINANCIAL ANALYST [address] [facility] [address] [place] [address] 04/22/2025 4:15 PM EST Office Visit [facility] [address] [facility] [address] [place] [phone] Yeison Estrada MD [address] [facility] [address] [place] [address] documented as of this encounter Visit Diagnoses Not on filedocumented in this encounter Care Teams Roll Former Relationship Specialty Start Date End Date Ese Barone APRN [address] [facility] [address] [facility] [address] [facility] [place] [address] PCP - General Family Medicine 01/24/22 documented as of this encounter
--- OUTSIDE RECORDS SUMMARY | 2024-12-31 09:08 | XMS_ITS | Encounter Summary ---
Author Organization [facility] Address [address] [place] [address] Care Team Providers Care Apartment Locator Name Role Phone Mane Castro MD Primary Care Provider [phone] Ese Barone APRN Primary Care Provider + [phone] Encounter Details Date Type Department Care Team (Late Contact Info) Description 02/19/2024 Orders Only External Location [address] [place] [address] Tamia Hernandez MD [address] [facility] [address] [place] [address] Social History Tobacco Use Types Packs/Day Years [...] [address] [place] [address] Garrett Galvin MD [address] [address] documented as of this encounter Procedures Procedure [...] documented as of this encounter Care Teams Apartment Locator Relationship Specialty Start Date End Date Mane Castro MD [address] [place] [address] PCP - General Internal Medicine 11/23/23 12/03/24 Ese Barone APRN [address] [place] [address] PCP - General 12/04/24 documented as of this encounter
--- OUTSIDE RECORDS SUMMARY | 2024-12-31 09:08 | XMS_ITS | Encounter Summary ---
Author Organization [employer] ([place], [place], [place], [place]) Address [address] [place] [address] Care Team Providers Care Manager Managed Backup Services Name Role Phone Mane Castro MD Primary Care Provider [phone] Encounter Details Date Type Department Care Team (Late st Contact Info) Description 09/15/2020 Transcribed Document [facility] [place] [facility] Medicine [address] [place] [address] ProviderRayna MD [address] [place], [place] [id number] Social History Tobacco Use Types Packs/Day Years [...] Polo MD - 09/15/2020 9:[address] [facility] Main OR IntraOp Summary Primary Physician: KATIUSKA POLANCO MD-SUR Finalized Date/Time: 09/19/20 15:22:41 Pt. Name: EARNEST YIN/Sex: 1950 Female Med Rec #: [id number] Physician: KATIUSKA POLANCO MD-SUR Financial #: [id number] Pt. Type: O Room/Bed: [facility]/ Admit/Disch: 09/15/20 08:13:00 - 09/17/20 11:59:00 Institution: [facility] IntraOp Case Attendance Entry 1 Entry 2 Entry 3 Case Attendee KATIUSKA POLANCO MD-ALTHEA Rosalia Malhotra, RN Kim Cox, Vermin Exterminator Role Performed Surgeon/Proceduralist, Bingo Checker, First Scrub, First First Time In 09/15/20 [...] Entry 6 Case Attendee BRYANT CAMARGO Mark, POLICE LIEUTENANT JERRICA ELLIOTT MD-ANS Role Performed Anesthesiologist of POLICE LIEUTENANT/Nurse Manager Transport Anesthesiologist of Record Record Time In 09/15/20 09:32:00 09/15/20 09:32:00 09/15/20 09:32:00 Time Out 09/15/20 11:17:00 09/15/20 11:17:00 09/15/20 11:17:00 Procedure Hernia Repair Hernia Repair Hernia Repair Incisional Laparoscopic Incisional Laparoscopic Incisional Laparoscopic Other Attendee Superficial Wound Closed By: Last Modified By: Rosalia Malhotra RN Montgomery, Hazel, Rosalia Bain, TIFFANIE 09/15/20 11:17:49 09/15/20 11:17:49 09/15/20 11:17:49 Entry 7 Entry 8 Entry 9 Case Attendee OTHER, ATTENDEE #1 Quang Freeman REP-KARI OTHER, ATTENDEE #2 Role Performed POLICE LIEUTENANT/Nurse Manager Transport Inseam Trimmer, Ancillary Bingo Checker, Second Time In 09/15/20 09:32:00 09/15/20 09:32:00 09/15/20 09:32:00 Time Out 09/15/20 11:17:00 09/15/20 11:17:00 09/15/20 11:17:00 Procedure Hernia Repair Hernia Repair Hernia Repair Incisional Laparoscopic Incisional Laparoscopic Incisional Laparoscopic Other Attendee ERICA DICKENS CRNA STUDENT TALISHA FINCH Superficial Wound Closed By: Last Modified By: Rosalia Malhotra, Rosalia Bain, Rosalia Bain RN 09/15/20 11:17:49 09/15/20 11:17:49 09/15/20 11:17:49 Entry 10 Case Attendee Carine Romero RN Role Performed Bingo Checker, Second Time In 09/15/20 09:52:00 Time Out 09/15/20 11:17:00 Procedure Hernia Repair Incisional Laparoscopic Other Attendee RELIEF Superficial Wound Closed By: Last Modified By: Rosalia Malhotra RN 09/15/20 11:17:49 [facility] IntraOp Case Attendance Audit 09/15/20 11:17:49 Safety Engineer Pressure Vessels: LAFAVEHM Modifier: LAFAVEHM 1 <+> Time Out [...] Procedure Hernia Repair Incisional Laparoscopic 09/15/20 09:53:44 Safety Engineer Pressure Vessels: LAFAVEHM Modifier: LAFAVEHM 1 <+> Time In [...] <+> 10 Procedure <+> [address] [facility] IntraOp Case Times Entry 1 Patient In Room Time 09/15/20 09:32:00 Out Room Time 09/15/20 11:17:00 Anesthesia Start Time 09/15/20 09:32:00 Stop Time 09/15/20 11:17:00 Surgery / Procedure Times Start Time 09/15/20 09:58:00 Stop Time 09/15/20 11:11:00 Last Modified By: Rosalia Malhotra RN 09/15/20 11:17:46 [facility] IntraOp Case Times Audit 09/15/20 11:17:46 Safety Engineer Pressure Vessels: LAFAVEHM Modifier: LAFAVEHM <+> 1 Out Room Time <+> 1 Stop Time 09/15/20 11:11:38 Safety Engineer Pressure Vessels: LAFAVEHM Modifier: LAFAVEHM <+> 1 Stop Time 09/15/20 10:03:25 Safety Engineer Pressure Vessels: LAFAVEHM Modifier: LAFAVEHM <+> [address] [facility] IntraOp Cautery Entry 1 ESU Identification Cautery Type Monopolar ESU ID Number [id number] ID Type Hospital Number Cautery Settings Cut Setting 1 Coag Setting 30 ESU Grounding Pad Ground Pad Type Adult Grounding Pad Site Upper Back Grounding Pad Rosalia Malhotra RN Applied By Grounding Pad Site Warm, dry and intact Skin Condition Before Cautery Grounding Pad Site Unchanged Skin Condition After Cautery Last Modified By: Rosalia Malhotra RN 09/15/20 09:54:27 [facility] IntraOp Communication Entry 1 Communication To Family/Significant other Comment START OF PROCEDURE Communication By Rosalia Malhotra RN Date and Time 09/15/20 09:54:00 Last Modified By: Rosalia Malhotra RN 09/15/20 09:54:54 [facility] IntraOp Counts Verification Entry 1 Procedure Hernia Repair Incisional Laparoscopic Count Info Count Type Sponge, Sharps, Instrument, Miscellaneous Counts Verification Baseline/pre-procedure Sequence Count Results Not Applicable Counts Performed By Count Performed By Kim Cox (Scrub) Vermin Exterminator Count Performed By Rosalia Malhotra RN (RN) Last Modified By: Rosalia Malhotra RN 09/15/20 09:55:33 [facility] IntraOp Counts Final Entry 1 Procedure Hernia Repair Incisional Laparoscopic Final Count Info Count Type Sponge, Sharps, Miscellaneous Counts Verification Skin Closure/end of Sequence procedure Count Results Correct, surgeon notified Counts Performed By Count Performed By Kim Cox (Scrub) Vermin Exterminator Count Performed By Rosalia Malhotra RN (RN) Last Modified By: Rosalia Malhotra RN 09/15/20 11:08:24 [facility] IntraOp Counts Final Audit 09/15/20 11:08:24 Safety Engineer Pressure Vessels: JESUS Modifier: ALISHM 1 <*> Procedure Hernia Repair Incisional Laparoscopic 1 <+> Count Performed By (Scrub) 1 <+> Count Performed By (RN) [facility] IntraOp Delays Entry 1 Delay Reason Missing H&P or 24 hr update Duration 10 Minute(s) Last Modified By: Rosalia Malhotra RN 09/15/20 10:40:19 [facility] IntraOp Departure from OR Entry 1 Integumentary Assessment Transfer/Handoff Transfer to PACU Phase I Handoff Method Bedside/Face to face, Phone call, Online nursing summary Post-op Transport Stretcher/Gurney Via Patient Transport Travis Lucero CRNA, Accompanied by OTHER, ATTENDEE #1 Last Modified By: Rosalia Malhotra RN 09/15/20 10:39:53 [facility] IntraOp Dressing and Packing Entry 1 Type Dressing Location OPSITE Wound Dressing Item Skin Closure Glue, ABD dressing pad, Abdominal binder Applied By KATIUSKA POLANCO MD-ALTHEA Last Modified By: Rosalia Malhotra RN 09/15/20 10:39:29 [facility] IntraOp Fire Risk Assessment Entry 1 Fire Info Surgical Site or 0- No Incision Above the Xyphoid Open O2 Source 0- No (Mask or Cannula) Available Ignition 1- Yes (ESU, Laser, Light Source) Fire Risk 1 Assessment Score Fire Score Fire Risk Yes Assessment Complete Fire Risk Rosalia Malhotra RN Assessment Verified By Fire Risk 09/15/20 09:34:00 Assessment Verified Date/Time Fire Risk Standard Fire Yes Safety Precautions Followed Last Modified By: Rosalia Malhotra RN 09/15/20 09:56:13 [facility] IntraOp Fire Risk Assessment Audit 09/15/20 09:56:13 Safety Engineer Pressure Vessels: ESCOBARYAJAIRARICH Modifier: ESCOBARYAJAIRARICH <+> 1 Fire Risk Assessment Verified Date/Time [facility] IntraOp General Case Business Education Instructor 1 Case Information OR OR 08 [facility] Case Level 1 Room Verified Yes Wound Class III - Contaminated Specialty General Anesthesia Type General ASA Class 2 Diagnosis Preop Diagnosis INSISIONAL HERNIA Postop Same As Preop Yes Postop Diagnosis INSISIONAL HERNIA Last Modified By: Rosalia Malhotra RN 09/15/20 09:56:56 [facility] IntraOp Implant Log Entry 1 Entry 2 Type Implant (Synthetic) Implant (Synthetic) Implant Log Implant Type Mesh Mesh Tissue Implant Type Implant MESH [id number] CIR 20CM MESH V[address]TR[address] ST ECHO Identification [id number] Description Implant Quantity 1 1 Implant Site Implant Identification Model Number Implant Identification Serial Number Implant [id number] Identification Lot Number Implant Cr Bard:Andrés Cr Bard:Davmichael Identification Dumper Name: Implant [id number] Identification Catalog Number Implant Size Implant Has an Expiration Date Implant Expiration 01/14/21 04/16/21 Date Wasted Radioactive Material Time Implanted Tissue Implant Continue for Tissue Implant Documentation Tissue Identification Number Graft Prep Per Yes Dumper Instructions: Tissue Preparation Method: Reconstitution Solution: Reconstitution Solution Lot Number Reconstitution Solution Expiration Date: Thawing Solution Thawing Solution Lot Number Thawing Solution Expiration Date Preparation Materials, Other Preparation Materials, Other Lot Number Preparation Materials, Other Expiration Date Tissue Prepared/Processed By Dumper N/A Paperwork Completed Implant Type Comment Last Modified By: Rosalia Malhotra RN Montgomery, Hazel, RN 09/15/20 10:39:16 09/15/20 10:56:43 [facility] IntraOp Implant Log Audit 09/15/20 10:56:43 Safety Engineer Pressure Vessels: ESCOBARYAJAIRARICH Modifier: ESCOBARYAJAIRARICH <+> 2 Implant Identification Description <+> 2 Implant Identification Lot Number <+> 2 Implant Identification Dumper Name: <+> 2 Implant Expiration Date <+> 2 Implant Quantity <+> 2 Implant Identification Catalog Number <+> 2 Implant Type <+> 2 Dumper Paperwork Completed <+> 2 Type 09/15/20 10:39:16 Safety Engineer Pressure Vessels: JESUS Modifier: JESUS 1 <*> Implant Identification Description MESH [id number] CIR 20CM [id number] <+> Implant Expiration Date [facility] IntraOp Intraoperative Assessment Entry 1 Handoff Method Online nursing summary Valid History / Yes Physical in Chart Preoperative Yes Checklist Reviewed/Evaluated Allergies Reviewed Yes Patient is Latex No Sensitive Isolation Not applicable Precautions Noted Level of WDL Consciousness (WDL = Alert, Oriented to Person, Place, and Time) Skin Assessment No Verified Present Upon IVs Arrival to OR Last Modified By: Roslaia Malhotra RN 09/15/20 09:57:21 [facility] IntraOp Intraoperative Equipment Entry 1 Entry 2 Type Equipment Equipment Equipment Equipment Ganga Suction System Other ID Number [id number] Setting Intraop Monitoring Electrocardiogram (ECG) Electrode Placement [...] Montgomery, Hazel, RN 09/15/20 09:58:32 09/15/20 09:58:32 [facility] IntraOp Medication Admin Entry 1 Medication/Irrigant Marcaine 0.5% w/ epinephrine 1:200,000 30ml vial - [id number] Route of LOCAL Administration Dose Unit of Measure ml Administered By KATIUSKA POLANCO MD-ALTHEA Procedure Irrigation Last Modified By: Rosalia Malhotra RN 09/15/20 10:03:08 [facility] IntraOp Patient Positioning Entry 1 Procedure Hernia [...] Modified By: Rosalia Malhotra RN 09/15/20 10:10:03 [facility] IntraOp Sign In Entry 1 Patient, Site, [...] Modified By: Rosalia Malhotra RN 09/15/20 10:09:08 [facility] IntraOp Sign Out Entry 1 RN Confirmation [...] Modified By: Rosalia Malhotra RN 09/15/20 11:17:42 [facility] IntraOp Sign Out Audit 09/15/20 11:17:42 Safety Engineer Pressure Vessels: ESCOBARABE Modifier: LAFAVEHM <+> 1 RN Sign Out Signature <+> 1 RN Sign Out Signature Date/Time [facility] IntraOp Skin Prep Entry 1 Procedure Hernia Repair Incisional Laparoscopic Prescribed N/A Pre-Surgical Prep Completed Prep Area ABDOMEN Intraop Prep Integumentary WDL Assessment WDL Prep Agents Chloraprep Prep by KATIUSKA POLANCO MD-ALTHEA Hair Removal Methods Clipper/Scissors Hair Removal Site PUBIC Hair Removal By KATIUSKA POLANCO MD-SUR Last Modified By: Rosalia Malhotra RN 09/15/20 10:08:07 [facility] IntraOp Surgical Procedures Entry 1 Procedure Hernia Repair Incisional Laparoscopic Additional (LAPAROSCOPIC Procedure INCISIONAL HERNIA Description REPAIR WITH MESH) Primary Procedure Yes Primary Surgeon KATIUSKA POLANCO MD-SUR Start 09/15/20 09:58:00 Stop 09/15/20 11:11:00 Anesthesia Type General Specialty General Wound Class II - Clean-Contaminated Last Modified By: Rosalia Malhotra RN 09/15/20 11:11:44 [facility] IntraOp Surgical Procedures Audit 09/15/20 11:11:44 Safety Engineer Pressure Vessels: LAFAVEHM Modifier: LAFAVEHM <+> 1 Stop 09/15/20 10:47:39 Safety Engineer Pressure Vessels: LAFAVEHM Modifier: LAFAVEHM 1 <*> Procedure Hernia Repair Incisional Laparoscopic [facility] IntraOp Temp Regulation Devices Entry 1 Temp Regulation Temperature Forced Air Warming Regulation Device device, Room temperature, Warm blankets Temperature 43 C Regulation Device Serial/Unit Number Temperature Upper body Regulation Site Temperature Device SET AND MONITORED BY Setting ANESTHESIA Temperature Travis Lucero CRNA Regulation Device Applied by Last Modified By: Rosalia Malhotra RN 09/15/20 10:06:41 [facility] IntraOp Temp Regulation Devices Audit 09/15/20 10:06:41 Safety Engineer Pressure Vessels: LAFAVEHM Modifier: LAFAVEHM <+> 1 Temperature Regulation Device Serial/Unit Number [facility] IntraOP Time Out Entry 1 Procedure to [...] Modified By: Rosalia Malhotra RN 09/15/20 10:06:15 [facility] IntraOP Time Out Audit 09/15/20 10:06:15 Safety Engineer Pressure Vessels: JESUS Modifier: JESUS 1 <+> Surgeon 1 [...] WATTSDR Correct Billing Electronically signed by [facility] Conversion Commercial Energy Rater Cerner at 07/05/2022 8:46 AM CDT documented in this encounter Plan of Treatment Not on file documented as of this encounter Visit Diagnoses Not on filedocumented in this encounter Care Teams Manager Managed Backup Services Relationship Specialty Start Date End Date Mane Castro MD [address] [place] [address] PCP - General Adolescent Medicine 05/04/22 documented as of this encounter
--- OUTSIDE RECORDS SUMMARY | 2024-12-31 09:08 | XMS_ITS | Encounter Summary ---
Author Organization [employer] ([place], [place], [place], [place]) Address [address] [place] [address] Care Team Providers Care Configuration Developer Name Role Phone Mane Castro MD Primary Care Provider + [phone] Encounter Details Date Type Department Care Team (Late st Contact Info) Description 09/17/2020 Transcribed Document [facility] [place] [address] [place] [address] ProviderRayna MD [address] [place], [place] [id number] Social History Tobacco Use Types Packs/Day Years Used Date Smoking Tobacco: Never Assessed Comments Unknown Sex and Gender Information Value Date Recorded Sex Assigned at Not on file Legal Sex Female 2:45 PM CDT Gender Identity Not on file Sexual Orientation Not on file documented as of this encounter Miscellaneous Notes * Cerner Conversion Note - Rayna Polo MD - 09/17/2020 5:00 AM CDT Chart Check - Review Order Profile Entered On: 09/17/2020 4:27 EDT Performed On: 09/17/2020 5:00 EDT by Niecy Tucker Rn Chart Check Powerplans Initiated/Discontinued as Appropriate : Yes All Active Orders Reviewed : Yes Niecy Tucker Rn - 09/17/2020 4:27 EDT Electronically signed by Rebecca Villanueva Conversion Director Clinical Information Services Cerner at 07/05/2022 9:04 AM CDT documented in this encounter Plan of Treatment Not on file documented as of this encounter Visit Diagnoses Not on filedocumented in this encounter Care Teams Configuration Developer Relationship Specialty Start Date End Date Mane Castro MD [address] [place] [id number] PCP - General Adolescent Medicine 05/04/22 documented as of this encounter
--- OUTSIDE RECORDS SUMMARY | 2024-12-31 09:08 | XMS_ITS | Encounter Summary ---
Author Organization Healthcare Address [address] [place] [address] Care Team Providers Care Hospital Technician Name Role Phone Mane Castro MD Primary Care Provider [phone] Ese Barone APRN Primary Care Provider [phone] Reason for Referral * Consultation (Routine) - Closed Specialty Diagnoses / Procedures Referred By Contac jsoe Referred To Contact General, Endocrine & Minimally Invasive Surgery / General Surgery Diagnoses Incisional hernia, without obstruction or gangrene Ese Barone, CARDIAC CATHETERIZATION TECHNOLOGIST [address] [address] Phone: tel: fax: Referral ID Status Reason Start Date Expiration Date V isits Requested Visits Authorized [id number] Closed Specialty Services Required 06/27/2023 12/26/2024 1 1 Encounter Details Date Type Department Care Team (Late st Contact Info) Description 06/27/2023 Community [facility] [address] [place] [address] Ese Barone, CARDIAC CATHETERIZATION TECHNOLOGIST [address] [place] [address] Incisional hernia, without obstruction or gangrene (Primary [...] Description 06/04/2025 11:00 AM EDT Office Visit [facility] General Surgery [address], [address] [place] [address] Garrett Galvin MD [address] [facility] [address] [place] [address] Scheduled Referrals Name Type Priority Associated Diagnoses Orde r Schedule Ambulatory Referral to General Surgery ([facility]) Outpatient Referral Routine Incisional hernia, without obstruction or gangrene Expected: 06/27/2023 (Approximate), Expires: 12/26/2024 documented as of this encounter Visit Diagnoses Diagnosis Incisional hernia, without obstruction or gangrene- Primary documented in this encounter Care Teams Hospital Technician Relationship Specialty Start Date End Date Mane Castro MD [address] [facility] [address] [place] [address] PCP - General Internal Medicine 11/23/23 12/03/24 Ese Barone APRN [address] [place] [address] PCP - General 12/04/24 documented as of this encounter
--- OUTSIDE RECORDS SUMMARY | 2024-12-31 09:08 | XMS_ITS | Encounter Summary ---
Author Organization [employer] ([place], [place], [place], [place]) Address [address] [place] [address] Care Team Providers Care Pin Drafting Machine Operator Name Role Phone Mane Castro MD Primary Care Provider + [phone] Encounter Details Date Type Department Care Team (Late st Contact Info) Description 09/17/2020 Transcribed Document [facility] [place] Family Medicine [address] [place] [address] ProviderRayna MD [address] [place], [place] [address] Social History Tobacco Use Types Packs/Day Years [...] On: 09/17/2020 9:28 EDT by Lisa Overton, Front Desk Admin [facility] Resource [facility] Provider Status : EST Other Established Provider Name : MINESH CEE Patient Phone Number : [phone] Patient Insurance Type : Medicare Source of Referral : Case management Location of Patient : Case management referral Primary Care Scheduled : No Specialty Care Scheduled : Yes Specialty Type Scheduled1 : [facility] General Surgery [facility] General Surgery Provider Name : KATIUSKA IRELAND [facility] General Surgery Appointment Date/Time : 09/30/2020 14:30 EDT Qualify for Diabetes and/or Nutrition Referral : No Wound Care Appointment Made : No Why Patient Visited ED- Specialty spent : Other How Patient Arrived at ED : Other Primary Language : Russian Patient Resource Center Comment : Patient needs follow up appointment. Called office and scheduled zoom appointment with Dr. Ireland Follow Up Needed : No Lisa Overton, Front Desk Admin - 09/17/2020 9:28 EDT Electronically signed by [facility] Conversion Virtual Office Assistant Cerner at 07/05/2022 8:54 AM CDT documented in this encounter Plan of Treatment Not on file documented as of this encounter Visit Diagnoses Not on filedocumented in this encounter Care Teams Pin Drafting Machine Operator Relationship Specialty Start Date End Date Mane Castro MD [address] [place] [address] PCP - General Adolescent Medicine 05/04/22 documented as of this encounter
--- OUTSIDE RECORDS SUMMARY | 2024-12-31 09:08 | XMS_ITS | Encounter Summary ---
Author Organization Healthcare Address [address] [place] [address] Care Team Providers Care Nurse Transplant Name Role Phone Mane Castro MD Primary Care Provider [phone] Encounter Details Date Type Department Care Team (Late Contact Info) Description 11/04/[address] [facility] General Surgery [address] [place] [address] Erica Alicea APRN [address] [place] [address] Social History Tobacco Use Types [...] Telephone Encounter - Erica Alicea APRN - 11/04/2024 8:21 AM EDT I left message advising that cardiac clearance will be needed prior to 12/[address] Galvin or appt will need to rescheduled. documented in this encounter Plan of Treatment Upcoming Encounters Date Type Department Care Team (Late st Contact Info) Description 06/04/2025 11:00 AM EDT Office Visit [facility] General Surgery [address] [place] [address] Garrett Galvin MD [address] [facility] [address] [place] [address] documented as of this encounter Visit Diagnoses Not on filedocumented in this encounter Additional Health Concerns Assessment Noted Time A fall risk assessment has been complete d for the patient 11/23/2023 10:08 AM EDT A Body Mass Index follow-up plan has been documented for the patient 07/24/2024 12:33 PM EDT documented as of this encounter Care Teams Nurse Transplant Relationship Specialty Start Date End Date Mane Castro MD [address] [place] [address] PCP - General Internal Medicine 11/23/23 12/03/24 documented as of this encounter
--- OUTSIDE RECORDS SUMMARY | 2024-12-31 09:08 | XMS_ITS | Encounter Summary ---
Author Organization [employer] ([place], [place], [place], [place]) Address [address] [place] [address] Care Team Providers Care Ballast Regulator Operator Name Role Phone Mane Castro MD Primary Care Provider + [phone] Encounter Details Date Type Department Care Team (Late st Contact Info) Description 09/17/2020 Transcribed Document [facility] Family Medicine [facility] [place] [address] ProviderRayna MD [address] [place], [place] [id number] Social History Tobacco Use Types Packs/Day Years [...] if you see any changes. ??? Take kelv-yno-eqkexqh and prescription medicines only as told by [...] provider. Document Revised: 04/07/2018 Document Reviewed: 12/06/2017 [employer] Patient Education ? 2020 [employer]. Laparoscopic Inguinal Hernia Repair, Adult Laparoscopic inguinal [...] including vitamins, herbs, eye drops, creams, and zaxy-nyq-beoqclo medicines. ??? Any problems you or family [...] diabetes medicines or blood thinners. ? Taking ewsb-hur-tvsnbeb medicines, vitamins, herbs, and supplements. ? Taking [...] provider. Document Revised: 08/14/2019 Document Reviewed: 06/15/2017 [employer] Patient Education ? 2019 [employer] Laparoscopic Inguinal Hernia Repair, Adult, Care [...] and water are not available, use hand electroencephalograph technician. ? Change your dressing as told by [...] allowed to take sponge baths. ??? Take swve-rzp-hrfbtjh and prescription medicines only as told by your health care provider. ??? To prevent or treat constipation while you are taking prescription pain medicine, your health care provider may recommend that you: ? Drink enough fluid to keep your urine pale yellow. ? Take tchh-wez-uyubcxk or prescription medicines. ? Eat foods that [...] provider. Document Revised: 08/14/2019 Document Reviewed: 06/15/2017 [employer] Patient Education ? 2020 [employer] documented in this encounter Plan of Treatment Not on file documented as of this encounter Visit Diagnoses Not on filedocumented in this encounter Care Teams Ballast Regulator Operator Relationship Specialty Start Date End Date Mane Castro MD [address] [place] [address] PCP - General Adolescent Medicine 05/04/22 documented as of this encounter
--- OUTSIDE RECORDS SUMMARY | 2024-12-31 09:09 | XMS_ITS | Encounter Summary ---
Author Organization [employer] ([place], [place], [place], [place]) Address [address] [place] [address] Care Team Providers Care Table Games Dealer Name Role Phone Mane Castro MD Primary Care Provider [phone] Encounter Details Date Type Department Care Team (Late st Contact Info) Description 09/17/2020 Transcribed Document [facility] [place] [address] [place] [address] ProviderRayna MD [address] [place], [place] [id number] Social History Tobacco Use Types Packs/Day Years Used Date Smoking Tobacco: Never Assessed Comments Unknown Sex and Gender Information Value Date Recorded Sex Assigned at Not on file Legal Sex Female 2:45 PM CDT Gender Identity Not on file Sexual Orientation Not on file documented as of this encounter Miscellaneous Notes * Cerner Conversion Note - Rayna Polo MD - 09/17/2020 10:47 AM CDT Nursing Discharge Summary Entered On: 09/17/2020 10:48 EDT Performed On: 09/17/2020 10:47 EDT by Priscilla Mcneil Virtual chemical lab supervisor Documentation Patient Disposition, General : Discharge Discharge [...] on filedocumented in this encounter Care Teams Table Games Dealer Relationship Specialty Start Date End Date Mane Castro MD [address] [place] [address] PCP - General Adolescent Medicine 05/04/22 documented as of this encounter
--- OUTSIDE RECORDS SUMMARY | 2024-12-31 09:09 | XMS_ITS | Encounter Summary ---
Author Organization [employer] ([place], [place], [place], [place]) Address [address] [place] [address] Care Team Providers Care Cost Recorder Name Role Phone Mane Castro MD Primary Care Provider [phone] Encounter Details Date Type Department Care Team (Late st Contact Info) Description 09/16/2020 Transcribed Document [facility] [place] [address] [place] [address] ProviderRayna MD [address] [place], [place] [id number] Social History Tobacco Use Types Packs/Day Years [...] Polo MD - 09/16/2020 2:00 AM CDT Cant Gang Sawyer Details Entered On: 09/16/2020 2:17 EDT Performed [...] on filedocumented in this encounter Care Teams Cost Recorder Relationship Specialty Start Date End Date Mane Castro MD [address] [place] [address] PCP - General Adolescent Medicine 05/04/22 documented as of this encounter
--- OUTSIDE RECORDS SUMMARY | 2024-12-31 09:09 | XMS_ITS | Encounter Summary ---
Author Organization [employer] ([place], [place], [place], [place]) Address [address] [place] [address] Care Team Providers Care Operating Room Coordinator Name Role Phone Mane Castro MD Primary Care Provider [phone] Encounter Details Date Type Department Care Team (Late st Contact Info) Description 09/16/2020 Transcribed Document [facility] [place] [address] [place] [address] ProviderRayna MD [address] [place], [place] [id number] Social History Tobacco Use Types Packs/Day Years [...] Health Plan: [employer] PPO Policy Number: [id number] Authorization Number: NPR Insurance Primary Name : Health Plan: [employer] CHO[employer] PPO Policy Number: [id number] Authorization Status-Primary : No precert required Reference Number-Primary : NPR Authorized Service Begin Date-Primary : 09/15/2020 EDT Authorization Comments-Primary : Ref to [employer]pas Historical Authorization Comments-Primary : Comment 1: NPR per [facility] notes (VISHAL HIGGINS RN 09/16/2020 11:53) VISHAL HIGGINS RN - 09/16/2020 14:06 EDT documented in this encounter Plan of Treatment Not on file documented as of this encounter Visit Diagnoses Not on filedocumented in this encounter Care Teams Operating Room Coordinator Relationship Specialty Start Date End Date Mane Castro MD [address] [place] [address] PCP - General Adolescent Medicine 05/04/22 documented as of this encounter
--- OUTSIDE RECORDS SUMMARY | 2024-12-31 09:09 | XMS_ITS | Encounter Summary ---
Author Organization [employer] ([place], [place], [place], [place]) Address [address] [place] [address] Care Team Providers Care Picture Painter Name Role Phone Mane Castro MD Primary Care Provider [phone] Encounter Details Date Type Department Care Team (Late st Contact Info) Description 09/17/2020 Transcribed Document [facility] [place] [address] [place] [address] ProviderRayna MD [address] [place], [place] [id number] Social History Tobacco Use Types Packs/Day Years Used Date Smoking Tobacco: Never Assessed Comments Unknown Sex and Gender Information Value Date Recorded Sex Assigned at Not on file Legal Sex Female 2:45 PM CDT Gender Identity Not on file Sexual Orientation Not on file documented as of this encounter Miscellaneous Notes * Cerner Conversion Note - Rayna Polo MD - 09/17/2020 2:00 AM CDT Sas Programmer Analyst Details Entered On: 09/17/2020 3:24 EDT Performed On: 09/17/2020 2:00 EDT by Niecy Tucker Rn Order Details Transport Mode Order Detail [...] on filedocumented in this encounter Care Teams Picture Painter Relationship Specialty Start Date End Date Mane Castro MD [address] [place] [address] PCP - General Adolescent Medicine 05/04/22 documented as of this encounter
--- OUTSIDE RECORDS SUMMARY | 2024-12-31 09:09 | XMS_ITS | Encounter Summary ---
Author Organization [employer] ([place], [place], [place], [place]) Address [address] [place] [address] Care Team Providers Care Air Conditioner Installer Helper Name Role Phone Mane Castro MD Primary Care Provider [phone] Encounter Details Date Type Department Care Team (Late st Contact Info) Description 09/17/2020 Transcribed Document [facility] [place] [address] [place] [address] ProviderRayna MD [address] [place], [place] [phone] Social History Tobacco Use Types Packs/Day Years [...] On: 09/17/2020 10:03 EDT by JOANN PEACOCK RN-Pipe Line Gauger Final Discharge Planning Discharge Arrangements : Patient [...] : Yes Discharge To Care Management : Home/Residential/Senior Care or Self Care -01 JOANN PEACOCK RN-Pipe Line Gauger - 09/17/2020 10:03 EDT Final Narrative Note Final Narrative Note : Discharged to home, agreeable. No needs noted at this time. JOANN PEACOCK RN-Pipe Line Gauger - 09/17/2020 10:03 EDT Electronically signed by Rich [facility] Conversion Director Of Player Personnel Cerner at 07/05/2022 8:53 AM CDT documented in this encounter Plan of Treatment Not on file documented as of this encounter Visit Diagnoses Not on filedocumented in this encounter Care Teams Air Conditioner Installer Helper Relationship Specialty Start Date End Date Mane Castro MD [address] [place] [address] PCP - General Adolescent Medicine 05/04/22 documented as of this encounter
--- OUTSIDE RECORDS SUMMARY | 2024-12-31 09:09 | XMS_ITS | Encounter Summary ---
Author Organization [employer] ([place], [place], [place], [place]) Address [address] [place] [address] Care Team Providers Care Tuckpointer Cleaner Caulker Name Role Phone Mane Castro MD Primary Care Provider [phone] Encounter Details Date Type Department Care Team (Late st Contact Info) Description 09/16/2020 Transcribed Document [facility] [place] [address] [place] [address] ProviderRayna MD [address] [place], [place] [id number] Social History Tobacco Use Types Packs/Day Years Used Date Smoking Tobacco: Never Assessed Comments Unknown Sex and Gender Information Value Date Recorded Sex Assigned at Not on file Legal Sex Female 2:45 PM CDT Gender Identity Not on file Sexual Orientation Not on file documented as of this encounter Miscellaneous Notes * Cerner Conversion Note - Rayna Polo MD - 09/16/2020 5:00 AM CDT Chart Check [...] on filedocumented in this encounter Care Teams Tuckpointer Cleaner Caulker Relationship Specialty Start Date End Date Mane Castro MD [address] [place] [address] PCP - General Adolescent Medicine 05/04/22 documented as of this encounter
--- OUTSIDE RECORDS SUMMARY | 2024-12-31 09:09 | XMS_ITS | Encounter Summary ---
Author Organization [employer] ([place], [place], [place], [place]) Address [address] [place] [address] Care Team Providers Care Rustic Terrazzo Setter Name Role Phone Mane Castro MD Primary Care Provider [phone] Encounter Details Date Type Department Care Team (Late st Contact Info) Description 09/16/2020 Transcribed Document [facility] [place] [address] [place] [address] ProviderRayna MD [address] [place], [place] [address] Social History Tobacco Use Types Packs/Day Years [...] Health Plan: [employer] PPO Policy Number: [id number] Authorization Number: NPR Insurance Primary Name : Health Plan: [employer] CHOICE PPO Policy Number: [id number] Authorization Status-Primary : No precert required Reference Number-Primary : NPR Authorized Service Begin Date-Primary : 09/15/2020 EDT Authorization Comments-Primary : NPR per [facility] notes Historical Authorization Comments-Primary : No Authorization Comments Found VISHAL HIGGINS, RN - 09/16/2020 11:53 EDT Electronically signed by Rich [facility] Conversion Banking Paralegal Cerner at 07/05/2022 9:04 AM CDT documented in this encounter Plan of Treatment Not on file documented as of this encounter Visit Diagnoses Not on filedocumented in this encounter Care Teams Rustic Terrazzo Setter Relationship Specialty Start Date End Date Mane Castro MD [address] [place] [address] PCP - General Adolescent Medicine 05/04/22 documented as of this encounter
== END 2024-12-31 23:59 | disposition home or self-care (01) ==
LOC: RAD 08:54
PROVIDERS: PCP Nurse Practitioner Family; Visit Provider Nurse Practitioner Family
DX: Z13.820 Encounter for screening for osteoporosis (principal); Z78.0 Asymptomatic menopausal state
CPT/HCPCS: 77080

== ENCOUNTER 2025-01-09 22:19 | Emergency (ER) | payer MEDICARE, SELFPAY ==
--- OUTSIDE RECORDS SUMMARY | 2023-08-21 05:00 | XMS_ITS | Encounter Summary ---
[facility] [address] [place] [address] Care Team Providers Care Change Manager Name Role Phone Ese Barone APRN Primary Care Provid er Encounter Details Date Type Department Care Team (Late st Contact Info) Description 08/21/2023 5:00 AM EDT Hospital Encounter [facility] [place] [address] [facility] [address] [place] [phone] Social History Tobacco Use Types Packs/Day Years [...] Info) Description 02/17/2025 11:30 AM EST Appointment [facility] [place] [address] [facility] [address] [place] [address] 02/17/2025 1:30 PM EST Office Visit [facility] HEMAT[facility] & [facility]COLOGY [address] [facility] [address] [place] [phone] Luda Haile, FAMILY SERVICE WORKER [address] [facility] [address] [place] [address] 04/22/2025 4:15 PM EST Office Visit [facility] R[facility] [address] [facility] [address] [place] [phone] Yeison Estrada MD [address] [facility] [address] [place] [address] documented as of this encounter Visit Diagnoses Not on filedocumented in this encounter Care Teams Change Manager Relationship Specialty Start Date End Date Ese Barone APRN [address] [facility] [address] [place] [address] PCP - General Family Medicine 01/24/22 documented as of this encounter
--- OUTSIDE RECORDS SUMMARY | 2024-07-24 11:30 | XMS_ITS | Encounter Summary ---
Author Organization Healthcare Address [address] [place] [address] Care Team Providers Care Respiratory Care Practitioner Name Role Phone Mane Castro MD Primary Care Provider [phone] Reason for Visit * Reason Comments Follow-up Encounter Details Date Type Department Care Team (Latest Contact Info) Description 07/24/2024 11:30 AM EDT Office Visit [facility] General Surgery [address] [place] [address] Erica Alicea, HYPERION ANALYST [address] [place] [address] Anticoagulated (Primary Dx); Diabetes 1.5, managed as type 2 (CMS/HCC); Pulmonary HTN (CMS/HCC); Recurrent incisional hernia Social History Tobacco Use Types Packs/Day Years Used Date Smoking Tobacco: Former Cigarettes 0.5 15 0 03/28/1970 - 03/28/1985 Smokeless Tobacco: Never Tobacco Cessation:Counseling Given: Not Answered PHQ-2 Answer Date Recorded Patient Health Questionnaire-2 Score 0 11/23/2023 Comments Unknown Sex and Gender Information Value Date Recorded Sex Assigned at Not on file Legal Sex Female 9:52 AM EDT Gender Identity Not on file Sexual Orientation Not on file documented as of this encounter Last Filed Vital Signs Vital Sign Reading Time Taken Comments Blood Pressure 135/79 07/24/2024 10:58 AM EDT Pulse 64 07/24/2024 10:58 AM EDT Temperature 36.2 C (97.1 F) 07/24/2024 10:58 AM EDT Respiratory Rate 16 07/24/2024 10:58 AM EDT Oxygen Saturation 98% 07/24/2024 10:58 AM EDT Inhaled Oxygen Concentration - - Weight 98.7 kg (217 lb 9.6 oz) 07/24/2024 10:58 AM EDT Height 168.8 cm (5' 6.45 ) 07/24/2024 10:58 AM E DT Body Mass Index 34.65 07/24/2024 10:58 AM EDT documented in this encounter Miscellaneous Notes * Progress Notes - Erica Alicea APRN - 07/24/2024 11:30 AM EDT ADDENDUM: 11/04/2024 Cardiac clearance received and in Media Subjective Mohinder Yin is a 74 y.o. female presenting for follow up for incisional hernia and surgical consult with Dr. Galvin. Weight loss was recommended at her last visit. Ms. Yin presents with a history of bowel perforation followed by laparotomy and ostomy placement in 2018. This was followed by ostomy reversal, appendectomy, and oophorectomy June 07, 2019. Shethen developed an incisional hernia and underwent laparoscopic hernia repair 2020 at [facility]. This was followed recurrence of the hernia and a laparoscopic hernia repair March 08t [facility]. She developed a recurrence of the incisional hernia around 6-8 months ago. The hernias remained stable in size and is otherwise asymptomatic. She denies pain, nausea, vomiting, diarrhea, constipation, and history of bowel obstruction. Additional medical history includes attention hyperlipidemia, pre diabetes (A1c 5.6%), mitral valveprolapse, hyperlipidemia, pulmonary hypertension, CHF, diverticular disease, JUJU, stage I lymphocytic lipoma of axilla, DVT 07/2023 and obesity with a BMI of 34.65 and a current weight of 217 lb. She has lost 35 lb since her last visit and below recommended weight goal. Her goal weight is 175 lb Patient notes a reducible and non-painful abdominal bulge in the central midline area. Currently denies symptoms of pain, constipation, nausea, vomiting, and diarrhea. Prior Ventral hernia repair: yes, as noted above Recent testing: CT scan - 02/19/2024 There is diastases of the abdominis rectus muscles with bulging of the anteriorperitoneal cavity. Images requested Outside medical records reviewed and commented on above. Body mass index is 34.65 kg/m??. Non-smoker Medical History[1] Surgical History[2] Family History[3] Current Medications[4] Allergies[5] Review of Systems Constitutional: Positive for appetite change (with Zepbound). Respiratory: Positive for apnea (uses CPAP). Negative for shortness of breath. Cardiovascular: Negative for chest pain. Gastrointestinal: Negative for abdominal pain, constipation, diarrhea, nausea and vomiting. Neurological: Negative for dizziness. Hematological: Hx of PEs following knee replacement Objective Visit Vitals BP 135/79 (BP Location: Right arm, Patient Position: Sitting) Pulse 64 Temp (!) 36.2 ??C (97.1 ??F) (Temporal) Ht 1.688 m (5' 6.45 ) Wt 98.7 kg (217 lb 9.6 oz) SpO2 98% BMI 34.65 kg/m?? Physical Exam Constitutional: well developed, well nourished, and in no acute distress Eyes: equal, round, and reactive Ears, Nose, Throat: normal atraumatic, no neck masses Respiratory: Normal Effort, Normal Rate Abdomen: Soft, non-distended, , a healed midline surgical incision noted, no palpable bulge noted Genitourinary: not indicated Musculoskeletal: normal strength, tone, and muscle mass, no deformities Psychiatric: oriented to time, place and person, mood and affect are within normal limits Neurologic: motor intact and no focal deficits Skin: [place], warm, well perfused Assessment/Plan Problem List Items Addressed This Visit Circulatory Pulmonary HTN (CMS/HCC) Endocrine/Metabolic Diabetes 1.5, managed as type 2 (CMS/HCC) Other Recurrent incisional hernia Anticoagulated - Primary Patient is a 74 y.o. female presenting with a history of bowel perforation with bowel resection andostomy placement 2018. This was followed by ostomy reversal. She developed an incisional hernia andunderwent laparoscopic hernia repair in 2020. She developed a recurrence and underwent laparoscopichernia repair in March 08, 2022. She then developed a recurrence of the hernia approximately 6-8months ago. The hernias remained stable in size and is otherwise asymptomatic. She denies pain, nausea, vomiting, diarrhea, constipation, and history of bowel obstruction. Hernia repair in this patient could be complicated by diabetes. She was advised that she will need to maintain a hemoglobin A1c of 7.2% or less prior to proceeding with surgery. Due to a significant cardiac history she will need cardiac clearance/risk stratification prior to proceeding with surgery. A letter was provided to the patient, and sent to Dr. Lam, requesting needed clearance. We discussed the possibility of incarceration, strangulation, enlargement in size over time, and the risk of emergency surgery in the face of strangulation during the optimization interval, patient was made aware when to seek urgent evaluation. She has reached her weight goal but would like to continue to work on weight loss and hold off on surgery until the fall. She would like to follow up with Dr. Galvin in November. I spent 35 minutes performing the following components of the encounter (on the day of the encounter): reviewing history, examining the patient, reviewing imaging and/or labs, communicating with other health direct care counselor, and entering clinical information in the EHR. 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 1.5 years ago ///off several months now Hyperlipidemia 10 years Hypertension jul 19 2023 Hypertension Obesity 25 years ago [2] Past Surgical History: Procedure Laterality Date APPENDECTOMY 2019 CHOLECYSTECTOMY CHOLECYSTECTOMY COLECTOMY COLON SURGERY 2019 HERNIA REPAIR see above notes for dates--- x3 LAPAROSCOPIC VENTRAL HERNIA REPAIR see prev notes OPEN HERNIA REPAIR see prev notes VENTRAL HERNIA REPAIR 2019 [3] Family History Problem Relation Name Age of Onset Arthritis Mother mom and Dad / grandp[arents COPD Mother mom and Dad / grandp[arents Heart disease Mother mom and Dad / grandp[arents Hyperlipidemia Mother mom and Dad / grandp[arents Hypertension Mother mom and Dad / grandp[arents Vision loss Mother mom and Dad / grandp[arents [4] Current Outpatient Medications Medication Sig Dispense Refill bumetanide (Bumex) 1 MG tablet Take 1.5 tablets (1.5 mg) by mouth 1 (one) time each day. Evolocumab 140 MG/ML solution auto-injector 1 mL (140 mg). famotidine (Pepcid) 40 MG tablet 1 tablet (40 mg). hydroCHLOROthiazide (HYDRODiuril) 25 MG tablet Take 1 tablet (25 mg) by mouth 1 (one) time each day. lisinopril 20 MG tablet Take 1 tablet (20 mg) by mouth 1 (one) time each day. Meclizine HCl 25 MG chewable tablet Chew 25 mg. meloxicam (Mobic) 15 MG tablet Take 1 tablet (15 mg) by mouth 1 (one) time each day. ondansetron (Zofran) 4 MG tablet PARoxetine (Paxil) 20 MG tablet Take 1 tablet (20 mg) by mouth 1 (one) time each day. potassium chloride CR (Klor-Con) 10 MEQ ER tablet 1 tablet (10 mEq). Zepbound 2.5 MG/0.5ML solution auto-injector INJECT 2.5 MG UNDER THE SKIN ONCE WEEKLY metFORMIN (Glucophage) 500 MG tablet 1 tablet (500 mg). rivaroxaban (Xarelto) 20 MG tablet 1 tablet (20 mg). No current facility-administered medications for this visit. [5] Allergies Allergen Reactions Penicillins Angioedema and Swelling face Furosemide Itching and Rash Losartan Itching Morphine Other - please document in the comment field Altered mental status Sulfa Drugs Rash documented in this encounter Plan of Treatment Upcoming Encounters Date Type Department Care Team (Late st Contact Info) Description 06/04/2025 11:00 AM EDT Office Visit [facility] General Surgery [address] [place] [address] Garrett Galvin MD Replaced by [facility] [address] documented as of this encounter Visit Diagnoses Diagnosis Anticoagulated- Primary Encounter for long-term (current) use of anticoagulants Diabetes 1.5, managed as type 2 Pulmonary HTN (CMS/HCC) Recurrent incisional hernia documented in this encounter Additional Health Concerns Assessment Noted Time A fall risk assessment has been complete d for the patient 11/23/2023 10:08 AM EDT A Body Mass Index follow-up plan has been documented for the patient 07/24/2024 12:33 PM EDT documented as of this encounter Care Teams Respiratory Care Practitioner Relationship Specialty Start Date End Date Mane Castro MD [address] [place] [id number] PCP - General Internal Medicine 11/23/23 12/03/24 documented as of this encounter
--- OUTSIDE RECORDS SUMMARY | 2024-12-04 11:00 | XMS_ITS | Encounter Summary ---
Author Organization Healthcare Address [address] [place] [address] Care Team Providers Care Manager Fund Name Role Phone Ese Barone ENRIQUE Primary Care Provider [phone] Reason for Visit * Reason Comments Follow-up Encounter Details Date Type Department Care Team (Late st Contact Info) Description 12/04/2024 11:00 AM EDT Office Visit [facility] General Surgery [address], [address] [place] [address] Garrett Galvin MD [address] [phone] Personal history of nutritional deficiency (Primary Dx); [...] hernia and underwent laparoscopic hernia repair t [facility]. Thiswas followed recurrence of the hernia and a laparoscopic hernia repair March 08, 2022 at [facility], both involving mesh. Per chart review, she has 3 separate pieces of mesh. However, neither repair was successful in the intermediate manager. She noticed the recurrence of the hernia [...] motor intact and no focal deficits Skin: [place], warm, well perfused Assessment/Plan Problem List Items [...] Description 06/04/2025 11:00 AM EDT Office Visit [facility] General Surgery [address] [place] [address] Garrett Galvin MD [address] [place] [phone] documented as of this encounter Visit Diagnoses [...] documented as of this encounter Care Teams Manager Fund Relationship Specialty Start Date End Date Ese Barone APRN [address] [facility] [address] [place] [address] PCP - General 12/04/24 documented as of this encounter
--- OUTSIDE RECORDS SUMMARY | 2024-12-05 11:00 | XMS_ITS | Encounter Summary ---
Author Organization [facility] Address [address] [place] [id number] Care Team Providers Care General Pediatrician Name Role Phone Ese Barone APRN Primary Care Provid er Reason for Visit * Reason Comments Rheumatoid Factor Positive * Consultation (Routine) - Closed Specialty Diagnoses / Procedures Referred By Noemi garcia Referred To Contact Rheumatology Diagnoses Pain in left hand Pain in right hand Rheumatoid factor positive Ese Barone, ENRIQUE [address] [place] [address] Phone: tel: fax: [facility] RHE[facility] [address] [address] Phone: tel: fax: Referral ID Status Reason Start Date Expiration Date Visits Re quested Visits Authorized [id number] Closed 11/13/2024 02/12/2026 1 1 Encounter Details Date Type Department Care Team (Latest Contact Info) Description 12/05/2024 11:00 AM EDT Office Visit [facility] [address] [place] [phone] Yeison Estrada MD [address] [place] [address] [phone] Rheumatoid factor positive (Primary Dx); Primary osteoarthritis [...] In 2012, she was seen by a delivery person, Dr. Byrne, for positive rheumatoid factor. Large [...] FLEXURE, PROCTOSCOPY; Surgeon: Kade Lance MD; Location: [facility] OR; Service: General; Laterality: N/A; COLONOSCOPY EXPLORATORY LAPAROTOMY N/A 02/16/2019 Procedure: Exploratory laparotomy, Sigmoid resection, Pelvic abscess drainage, Colostomy creation; Surgeon: Humberto Cordova MD; Location: [facility] OR; Service: General LAMINECTOMY L5-S1 REPLACEMENT TOTAL [...] 6 weeks (around 01/16/2025). Yeison Estrada MD [facility] Rheumatology [facility] documented in this encounter Plan of Treatment Upcoming Encounters Date Type Department Care Team (Late st Contact Info) Description 02/17/2025 11:30 AM EST Appointment [facility] [address] [facility] [address] [place] [phone] 02/17/2025 1:30 PM EST Office Visit [facility] HEMATOLOGY & ONCOLOGY [address] [facility] [address] [place] [phone] Luda Haile, PUBLIC BATH ATTENDANT [address] [facility] [address] [place] [address] 04/22/2025 4:15 PM EST Office Visit [facility] [address] [facility] [address] [place] [phone] Yeison Estrada MD [address] [facility] [address] [place] [address] documented as of this encounter Procedures Procedure [...] 9:07 AM EDT Performed at: 02 - [address] [id number] Printing Table Worker: Guerrero Suero PhD, Phone: [phone] Patient Fasting: N Yeison Estrada MD LAB BLOOD ORDERABLES Final Res ult [facility] (AMBULATORY) [address] [place] [address], [facility] [address] [place] [address], * CBC & Differential (12/05/2024 12:15 PM [...] - 12/09/2024 9:07 AM EDT Performed at: [address] [place] [id number] Printing Table Worker: Lewis Henley MD, Phone: [phone] Patient Fasting: N Yeison Estrada MD LAB BLOOD ORDERABLES Final Res ult [facility] (AMBULATORY) [address] [place] [address], [place] [phone] [facility] [address] [place] [address], * Hepatitis Panel, Acute (12/05/2024 12:15 PM EDT) Hep A IgM Negative Negative [facility] Comment: A negative anti-HAV IgM result suggests no recent or current HAV infection. Hepatitis B Surface Ag Negative Negative [facility] Hep B Core IgM Negative Negative [facility] Hepatitis C Ab Non Reactive Non Reactive [facility] Blood 12/05/2024 12:1 5 PM EDT 12/05/2024 Narrative [facility] (AMBULATORY) - 12/09/2024 9:07 AM EDT Performed at: - [address] [id number] Printing Table Worker: Guerrero Suero PhD, Phone: [phone] Patient Fasting: N Yeison Estrada MD LAB BLOOD ORDERABLES Final Res ult [facility] [address] [place] [id number], [place] [phone] [facility] [address] [place] [address], [place] [phone] * BACILIO by IFA, Reflex 9-biomarkers profile [...] 12:1 5 PM EDT 12/05/2024 Narrative [facility] (AMBULATORY) - 12/09/2024 9:07 AM EDT Performed at: - [address] [id number] Printing Table Worker: Guerrero Suero PhD, Phone: [phone] Patient Fasting: N us Yeison Estrada MD LAB BLOOD ORDERABLES Final Res ult Performing Organization Address [facility] Co de Phone Number [facility] (AMBULATORY) [address] [place] [address], [place] [phone] [facility] [address] [place] [address], [place] [phone] * (ABNORMAL) Rheumatoid Factor (12/05/2024 12:15 PM EDT) [facility] RA Latex Turbid 68.4(H) <14.0 IU/mL [facility] Blood 12/05/2024 12:1 5 PM EDT 12/05/2024 Narrative [facility] (AMBULATORY) - 12/09/2024 9:07 AM EDT Performed at: [address] [place] [address] [address] [place], [place] [id number] Printing Table Worker: Guerrero Suero PhD, Phone: [phone] Patient Fasting: N us Yeison Estrada MD LAB BLOOD ORDERABLES Final Res ult Performing Organization Address [facility] Co de Phone Number [facility] (AMBULATORY) [address] [place] [address], [place] [phone] [facility] [address] [place] [address], [place] [phone] * Sedimentation Rate (12/05/2024 12:15 PM EDT) [facility] Sed Rate 15 0 - 30 mm/hr [facility] Blood 12/05/2024 12:1 5 PM EDT 12/05/2024 Narrative [facility] (AMBULATORY) - 12/09/2024 9:07 AM EDT Performed at: [address] [place] [id number] Printing Table Worker: Lewis Henley MD, Phone: [phone] Patient Fasting: N us Yeison Estrada MD LAB BLOOD ORDERABLES Final Res ult Performing Organization Address City/[facility]/ZIP Co de Phone Number [facility] (AMBULATORY) [address] [place] [address], [facility] [address] [place] [address], * Cyclic Citrul Peptide Antibody, IgG / IgA (12/05/2024 12:15 PM EDT) Pathologist [facility] CCP Antibodies IgG/IgA 8 0 - 19 units [facility] Comment: Negative <20 Weak positive 20 - 39 Moderate positive 40 - 59 Strong positive >59 Blood 12/05/2024 12:1 5 PM EDT 12/05/2024 Narrative [facility] (AMBULATORY) - 12/09/2024 9:07 AM EDT Performed at: [address] [place] [address] [place] [id number] Printing Table Worker: Guerrero Suero PhD, Phone: [phone] Patient Fasting: N us Yeison Estrada MD LAB BLOOD ORDERABLES Final Res ult Performing Organization Address [facility] Co de Phone Number [facility] [address] [place] [address], [facility] [address] [place] [address], [place] [phone] * C-reactive Protein (12/05/2024 12:15 PM EDT) [facility] C-Reactive Protein <0.30 0.00 - 0.50 mg/dL [facility] Blood 12/05/2024 12:1 5 PM EDT 12/05/2024 [facility] (AMBULATORY) - 12/09/2024 9:07 AM EDT Performed at: [address] [place] [id number] Printing Table Worker: Lewis Henley MD, Phone: [phone] Patient Fasting: N us Yeison Estrada MD LAB BLOOD ORDERABLES Final Res ult [facility] (AMBULATORY) [address] [place] [address], [facility] [address] [place] [address], * (ABNORMAL) Comprehensive Metabolic Panel (12/05/2024 12:15 [...] - 12/09/2024 9:07 AM EDT Performed at: [address] [place] [address] [place], [place] [id number] Printing Table Worker: Lewis Henley MD, Phone: [phone] Patient Fasting: N Yeison Estrada MD LAB BLOOD ORDERABLES Final Res ult [email or web address] (AMBULATORY) [address] [place] [address], [facility] [address] [place] [address], * XR Hand 2 View Bilateral (12/05/2024 [...] MD 12/09/2024 4:43 PM EDT Workstation ID: [id number] DxDesc DxDesc Narrative 12/09/2024 4:43 PM EDT [...] MD 12/09/2024 4:43 PM EDT Workstation ID: [id number] DxDes DxDesc us Yeison Estrada MD IMG [...] MD 12/09/2024 4:43 PM EDT Workstation ID: [id number] DxDesc DxDesc Narrative 12/09/2024 4:43 PM EDT [...] MD 12/09/2024 4:43 PM EDT Workstation ID: [id number] DxDesc DxDesc Yeison Estrada MD IMG DIAGNOSTIC IMAGING ORDERAB LES Final Result documented in this encounter Visit Diagnoses Diagnosis Rheumatoid factor positive- Primary Other and unspecified nonspecific immunological findings Primary osteoarthritis of both hands Paresthesia of both feet Chronic fatigue Other malaise and fatigue documented in this encounter Care Teams General Pediatrician Relationship Specialty Start Date End Date Ese Barone APRN [facility] [place] [address] [place] [address] PCP - General Family Medicine 01/24/22 documented as of this encounter
--- OUTSIDE RECORDS SUMMARY | 2024-12-05 11:45 | XMS_ITS | Encounter Summary ---
Author Organization [facility] Address [address] [place] [address] Care Team Providers Care Manager Drug Safety Name Role Phone Ese Barone APRN Primary Care Provid er Encounter Details Date Type Department Care Team (Late st Contact Info) Description 12/05/2024 11:45 AM EDT Ancillary Procedure [facility] RHEUMATOLOGY [address] [place] [address] Social History Tobacco Use Types Packs/Day Years [...] Info) Description 02/17/2025 11:30 AM EST Appointment [facility] [address] [facility] [address] [place] [address] 02/17/2025 1:30 PM EST Office Visit [facility] HEMATOLOGY & ONCOLOGY [address] [facility] [address] [place] [phone] Luda Haile, PLANT SCIENTIST [address] [facility] [address] [place] [address] 04/22/2025 4:15 PM EST Office Visit [facility] RHEUMATOLOGY 330 [facility] 100 [place] [phone] Yeison Estrada MD 330 [facility] 100 [place] [address] documented as of this encounter Procedures Procedure Name Priority Date/Time Associated Diagnosis Comments XR HAND 2 VW BILATERAL Routine 12/05/2024 11:44 AM EDT Rheumatoid factor positive XR FOOT 3+ VW BILATERAL Routine 12/05/2024 11:44 AM EDT Rheumatoid factor positive documented in this encounter Results * XR Hand 2 View Bilateral (12/05/2024 11:44 AM EDT) Anatomical Region Laterality Modality Upper Extremities, Hand Bilateral [facility] 12/09/2024 4:37 PM EDT Impressions 12/09/2024 [...] MD 12/09/2024 4:43 PM EDT Workstation ID: [id number] DxDesc DxDesc Narrative 12/09/2024 4:43 PM EDT [...] MD 12/09/2024 4:43 PM EDT Workstation ID: [id number] DxDesc DxDesc Yeison Estrada MD IMG DIAGNOSTIC [...] MD 12/09/2024 4:43 PM EDT Workstation ID: [id number] DxDesc DxDesc Narrative 12/09/2024 4:43 PM EDT [...] MD 12/09/2024 4:43 PM EDT Workstation ID: [id number] DxDesc DxDesc us Yeison Estrada MD IMG DIAGNOSTIC IMAGING ORDERAB LES Final Result documented in this encounter Visit Diagnoses Not on filedocumented in this encounter Care Teams Manager Drug Safety Relationship Specialty Start Date End Date Ese Barone APRN [address] [place] [address] [place], [place] [address] PCP - General Family Medicine 01/24/22 documented as of this encounter
[2025-01-09] VITALS (10 sets, daily range): BP systolic 118–192; BP diastolic 70–130; PULSE 75–144; RESP 12–25; TEMP 36.7; O2SAT 94–98; BMI 33.4
--- NOTE | 2025-01-09 22:19 | ECG_ITS ---
APPROVED REPORT Exam: Resting ECG HR:145 bpm ECG Measurements Heart Rate 145 AXES QRSd 95 QRS 5 QT 206 T 0 QTc 290 Conclusion ATRIAL FLUTTER/TACHYCARDIA WITH RAPID VENTRICULAR RESPONSE NONSPECIFIC ST & T-WAVE ABNORMALITY ABNORMAL RHYTHM ECG UNCONFIRMED REPORT Electronically signed by : BRIDGETTE CHAIDEZ, 01/10/2025 02:04:41
--- OUTSIDE RECORDS SUMMARY | 2025-01-09 22:24 | XMS_ITS | Encounter Summary ---
Author Organization Healthcare Address [address] [place] [address] Care Team Providers Care Manager Semiconductor Name Role Phone Mane Castro MD Primary Care Provider [phone] Encounter Details Date Type Department Care Team (Late Contact Info) Description 11/25/2024 Telephone [facility] [address], [address] [place] [address] Erica Alicea APRN [address] [place] [address] Social History Tobacco Use Types [...] Description 06/04/2025 11:00 AM EDT Office Visit [facility] General Surgery [address], [address] [place] [address] Garrett Galvin MD [address] [facility] [address] [place] [address] documented as of this encounter Visit Diagnoses Not on filedocumented in this encounter Additional Health Concerns Assessment Noted Time A fall risk assessment has been complete d for the patient 11/23/2023 10:08 AM EDT A Body Mass Index follow-up plan has been documented for the patient 07/24/2024 12:33 PM EDT documented as of this encounter Care Teams Manager Semiconductor Relationship Specialty Start Date End Date Mane Castro MD [address] [place] [address] PCP - General Internal Medicine 11/23/23 12/03/24 documented as of this encounter
--- OUTSIDE RECORDS SUMMARY | 2025-01-09 22:24 | XMS_ITS | Encounter Summary ---
Author Organization Healthcare Address [address] [place] [address] Care Team Providers Care Traffic Agent Name Role Phone Mane Castro MD Primary Care Provider [phone] Ese Barone APRN Primary Care Provider + [phone] Encounter Details Date Type Department Care Team (Late Contact Info) Description 08/19/2024 Orders Only External Location [address] [place] [address] Tamia Hernandez MD [address] [facility] [address] [place] [address] Social History Tobacco Use Types Packs/Day Years [...] Description 06/04/2025 11:00 AM EDT Office Visit [facility] [address] [place] [address] Garrett Galvin MD [address] [address] documented as of this encounter Procedures Procedure [...] documented as of this encounter Care Teams Traffic Agent Relationship Specialty Start Date End Date Mane Castro MD [address] [place] [address] PCP - General Internal Medicine 11/23/23 12/03/24 Ese Barone APRN [address] [place] [address] PCP - General 12/04/24 documented as of this encounter
--- OUTSIDE RECORDS SUMMARY | 2025-01-09 22:24 | XMS_ITS | Encounter Summary ---
Author Organization Healthcare Address [address] [place] [address] Care Team Providers Care Open Soaper Tender Name Role Phone Mane Castro MD Primary Care Provider [phone] Ese Barone APRN Primary Care Provider + [phone] Encounter Details Date Type Department Care Team (Late Contact Info) Description 08/19/2024 Orders Only External Location [address] [place] [address] Tamia Hernandez MD [address] [facility] [address] [place] [address] Social History Tobacco Use Types Packs/Day Years [...] [address], [address] [place] [address] Garrett Galvin MD [address] [address] documented as of this encounter Procedures Procedure [...] documented as of this encounter Care Teams Open Soaper Tender Relationship Specialty Start Date End Date Mane Castro MD [address] [place] [address] PCP - General Internal Medicine 11/23/23 12/03/24 Ese Barone APRN [address] [place] [address] PCP - General 12/04/24 documented as of this encounter
--- OUTSIDE RECORDS SUMMARY | 2025-01-09 22:24 | XMS_ITS | Encounter Summary ---
Author Organization Healthcare Address [address] [place] [address] Care Team Providers Care Thinner Sprayer Name Role Phone Mane Castro MD Primary Care Provider [phone] Ese Barone APRN Primary Care Provider + [phone] Encounter Details Date Type Department Care Team (Late Contact Info) Description 08/19/2024 Orders Only External Location [address] [place] [address] Tamia Hernandez MD 1700 [facility] [address] [place] [address] Social History Tobacco Use Types Packs/Day Years [...] Description 06/04/2025 11:00 AM EDT Office Visit [facility] [address] [place] [address] Garrett Galvin MD [address] [address] documented as of this encounter Procedures Procedure [...] documented as of this encounter Care Teams Thinner Sprayer Relationship Specialty Start Date End Date Mane Castro MD [address] [place] [address] PCP - General Internal Medicine 11/23/23 12/03/24 Ese Barone APRN [address] [place] [address] PCP - General 12/04/24 documented as of this encounter
--- OUTSIDE RECORDS SUMMARY | 2025-01-09 22:24 | XMS_ITS | Encounter Summary ---
Author Organization Healthcare Address [address] [place] [address] Care Team Providers Care Textile Technologist Name Role Phone Mane Castro MD Primary Care Provider [phone] Ese Barone APRN Primary Care Provider + [phone] Encounter Details Date Type Department Care Team (Late Contact Info) Description 02/19/2024 Orders Only External Location [address] [place] [address] Tamia Hernandez MD [address] [facility] [address] [place] [address] Social History Tobacco Use Types Packs/Day Years [...] Description 06/04/2025 11:00 AM EDT Office Visit [facility] [address], [address] [place] [address] Garrett Galvin MD [address] [address] documented as of this encounter Procedures Procedure [...] documented as of this encounter Care Teams Textile Technologist Relationship Specialty Start Date End Date Mane Castro MD [address] [place] [address] PCP - General Internal Medicine 11/23/23 12/03/24 Ese Barone APRN [address] [place] [address] PCP - General 12/04/24 documented as of this encounter
--- OUTSIDE RECORDS SUMMARY | 2025-01-09 22:24 | XMS_ITS | Encounter Summary ---
Author Organization Healthcare Address [address] [place] [address] Care Team Providers Care Corn Detasseler Name Role Phone Ese Barone APRN Primary Care Provider [phone] Encounter Details Date Type Department Care Team [...] Description 06/04/2025 11:00 AM EDT Office Visit [facility] General Surgery [address], [address] [place] [address] Garrett Galvin MD [address] [place] [address] documented as of this encounter Visit Diagnoses Not on filedocumented in this encounter Additional Health Concerns Assessment Noted Time A fall risk assessment has been complete d for the patient 12/04/2024 10:55 AM EDT A Body Mass Index follow-up plan has been documented for the patient 12/10/2024 1:33 PM EDT documented as of this encounter Care Teams Corn Detasseler Relationship Specialty Start Date End Date Ese Barone APRN [address] [facility] [address] [place] [id number] PCP - General 12/04/24 documented as of this encounter
--- OUTSIDE RECORDS SUMMARY | 2025-01-09 22:24 | XMS_ITS | Encounter Summary ---
Author Organization Healthcare Address [address] [place] [address] Care Team Providers Care Tubular Products Fabricator Name Role Phone Mane Castro MD Primary Care Provider [phone] Ese Barone APRN Primary Care Provider + [phone] Encounter Details Date Type Department Care Team (Late Contact Info) Description 08/19/2024 Orders Only External Location [address] [place] [address] Tamia Hernandez MD 1700 [facility] [address] [place] [address] Social History Tobacco Use Types Packs/Day Years [...] Description 06/04/2025 11:00 AM EDT Office Visit [place] [facility] [address], [address] [place] [address] Garrett Galvin MD [address] [address] documented as of this encounter Procedures Procedure [...] documented as of this encounter Care Teams Tubular Products Fabricator Relationship Specialty Start Date End Date Mane Castro MD [address] [place] [address] PCP - General Internal Medicine 11/23/23 12/03/24 Ese Barone APRN [address] [place] [address] PCP - General 12/04/24 documented as of this encounter
--- OUTSIDE RECORDS SUMMARY | 2025-01-09 22:24 | XMS_ITS | Encounter Summary ---
Author Organization Healthcare Address [address] [place] [address] Care Team Providers Care Sugar House Supervisor Name Role Phone Mane Castro MD Primary Care Provider [phone] Ese Barone APRN Primary Care Provider + [phone] Encounter Details Date Type Department Care Team (Late Contact Info) Description 08/19/2024 Orders Only External Location [address] [place] [address] Tamia Hernandez MD 1700 [facility] [address] [place] [address] Social History Tobacco Use Types Packs/Day Years [...] Description 06/04/2025 11:00 AM EDT Office Visit [place] [facility] [address], [address] [place] [address] Garrett Galvin MD [address] [address] documented as of this encounter Procedures Procedure [...] documented as of this encounter Care Teams Sugar House Supervisor Relationship Specialty Start Date End Date Mane Castro MD [address] [place] [address] PCP - General Internal Medicine 11/23/23 12/03/24 Ese Barone APRN [address] [place] [address] PCP - General 12/04/24 documented as of this encounter
--- OUTSIDE RECORDS SUMMARY | 2025-01-09 22:25 | XMS_ITS | Encounter Summary ---
Author Organization Healthcare Address [address] [place] [address] Care Team Providers Care Rn Maternal Child Name Role Phone Mane Castro MD Primary Care Provider [phone] Ese Barone APRN Primary Care Provider [phone] Reason for Referral * Consultation (Routine) - Closed Specialty Diagnoses / Procedures Referred By Contac jose Referred To Contact General, Endocrine & Minimally Invasive Surgery / General Surgery Diagnoses Incisional hernia, without obstruction or gangrene Ese Barone, CARPENTER MOLD [address] [address] Phone: tel: fax: Referral ID Status Reason Start Date Expiration Date V isits Requested Visits Authorized [id number] Closed Specialty Services Required 06/27/2023 12/26/2024 1 1 Encounter Details Date Type Department Care Team (Late st Contact Info) Description 06/27/2023 Community [facility] [address] [place] [address] Ese Barone, CARPENTER MOLD [address] [place] [address] Incisional hernia, without obstruction or gangrene (Primary [...] Description 06/04/2025 11:00 AM EDT Office Visit [facility] [address], [address] [place] [address] Garrett Galvin MD [address] [facility] 2nd [place] [address] Scheduled Referrals Name Type Priority Associated Diagnoses Orde r Schedule Ambulatory Referral to General Surgery ([facility]) Outpatient Referral Routine Incisional hernia, without obstruction or gangrene Expected: 06/27/2023 (Approximate), Expires: 12/26/2024 documented as of this encounter Visit Diagnoses Diagnosis Incisional hernia, without obstruction or gangrene- Primary documented in this encounter Care Teams Rn Maternal Child Relationship Specialty Start Date End Date Mane Castro MD [address] [facility] [address] [place] [address] PCP - General Internal Medicine 11/23/23 12/03/24 Ese Barone APRN [address] [place] [address] PCP - General 12/04/24 documented as of this encounter
--- OUTSIDE RECORDS SUMMARY | 2025-01-09 22:25 | XMS_ITS | Continuity of Care Document ---
Author Organization [facility], ORTHOPEDICS [address] [place] [address] Care Team Providers Care Public Safety Teacher Name Role Phone HIEU CAROLINA Referring Provider [...] instructions recorded. Reason for Referral None Reported. Problems Name Problem SNOMED Code Status Onset Date Resolution Date Notes Provider Name and Address Organization Details Recorded Time History of major abdominal surgery 980739820 Active 2023 HIEU BEACH MD [address] [place] [address], [address], [facility] 4 16:51:37 Type 2 diabetes mellitus without complicatio n [id number] Active 20[place] [address] [place] [address], [address], [facility] 4 16:51:38 Osteoarthri tis of left knee joint 6948913310380 09 Active 2023 HIEU BEACH MD [address] [place] [address], [address] 1, [facility] 4 16:51:39 Problem Notes None recorded. Procedures Surgical History Date Name Laterality Status Provider Name and Address Organization Details Recorded Time 12/04/19 25 Injection - Joint/Bursa, Major completed SVETLANA BEAN PA-C [address] [place], [address], [facility] hospital 12/04/2024 10:55:10 07/06/19 25 Injection - Joint/Bursa, Parvez completed SVETLANA BEAN PA-C [address] [place], [address], [facility] hospital 07/05/2024 16:43:35 09/27/19 24 Injection - Joint/Bursa, Major completed LAKHWINDER SHARMA PA-C [address] [place], [address], [facility] hospital 09/27/2023 10:44:43 07/19/19 24 total replacement of left knee joint completed Magi Niño [facility] 08/09/2023 11:29:28 07/13/19 24 PCM Visit completed Sin Trinidad [facility] 07/17/2023 10:52:34 04/26/19 24 Injection - Joint/Bursa, Major completed SVETLANA BEAN PA-C [address] [place], [address], [facility] hospital 04/26/2023 10:10:20 12/13/19 23 Injection - Joint/Bursa, Major completed SVETLANA BEAN PA-C [address] [place], [address], [facility] hospital 12/12/2022 13:44:08 07/08/19 23 Injection - Joint/Bursa, Major completed SVETLANA BEAN PA-C [address] [place], [address], [facility] hospital 07/26/2022 14:42:55 08/19/19 22 Injection - Joint/Bursa, Major completed KEVIN CARVALHO MD [address] [place], [address], [facility] hospital 08/18/2021 09:11:40 laminectomy completed Magi Niño [facility] 08/18/2021 08:44:04 cholecystectomy completed Magi Niño [facility] 08/18/2021 08:44:11 Unlisted px meckenya's dvrtclm completed Magi Niño [facility] 08/18/2021 08:44:33 Imaging Results None recorded. Procedure Notes None recorded. Medical Equipment None Reported. Allergies Allergen ID Allergen Name Allergen Category Reaction Reaction Severity Criticality Documentation Date Start Date Code Code System Note Provider Name and Address Organization Details Recorded Time 356722 Product containin g penicilli n (product) medicatio n Not available Not available Not available 08/18/2021 25760 8001 SNOMED Magi [facility] 2 08:40:20 593602 Lasix medicatio n Not available Not available Not available 08/18/2021 1 RxNorm Magi [facility] 2 08:40:24 366040 losartan medicatio n Not available Not available Not available 08/18/2021 63223 RxNorm Magi [facility] 2 08:40:30 Medications Name Sig Start Date [...] day by oral route for 14 days. 06/06/ 2022 active Not Available Not Available Not Avai [...] Available Not Available Not Avai lable Vitals None Recorded Social History Question Answer Notes LastModified by Organizat ion Details LastModified Time Tobacco Smoking Status Never Smoker Magi Niño [facility] 08/18/2021 08:43:35 What Is Your Level Of Caffeine Consumption? Moderate [email or web address] Information not available 08/18/2021 What Was The Date Of Your Most Recent Tobacco Screening? 08/09/2023 [email or web address] Information not available 08/09/2023 What Is Your Relationship Status? [email or web address] Information not available 08/18/2021 Has Tobacco Cessation Counseling Been Provided? No [email or web address] Information not available 08/18/2021 Sex: Female Functional Status Question Answer Note LastModified by Organizat ion Details LastModified Time Do you use any illicit or recreational drugs? No [email or web address] Information not available 08/18/2021 Do you or have you ever used any other forms of tobacco or nicotine? No Information not available 08/18/2021 What is your level of alcohol consumption? None [email or web address] Information not available 08/18/2021 Are you currently employed? No retired [email or web address] Information not available 08/18/2021 Mental Status None recorded. Family History Relationship Description Onset Age of this Age Resolved Age Notes LastModified by Organization Details LastModified Time Father No current problems or disability [email or web address] Not available 03/2021 08:43:19 Mother No current problems or disability [email or web address] Not available 03/2021 08:43:19 Medical History Condition Response Allergies/Hayfever N Anxiety/Depression Y Other Y Gout N Thyroid Disease N Kidney Stones N Heart Conditions N Hernia N Migraines N COPD N Glaucoma N Pneumonia N Skin Problems N Immune System Disorder N Anesthesia Complications N Heart Attack (IN) N Mental Illness N Neurological Problems N [...] Diagnosis SNOMED-CT Code Diagnosis ICD10 Code Diagnosis IMO Codes Diagnosis Note [id number] SVETLANA BEAN PA-C [facility] [address] [place] [address] 12/03/2024 08:35:46 12/09/2024 11:42:09 Osteoarthritis of right knee joint [id number] 77816 M17.11 [id number] Assessment : Osteoarthr itis right knee Plan: Steroid injection tolerated well without complicati on. Follow-up as needed. Health Concerns Section Related Observation LastModified by Organization Detai ls LastModified Time None Recorded Concern Status LastModified by Organization Details LastModified Time None Recorded Payers Encounter Date Sequence Insurance Name Policy Number Policy Brown Covered Member ID Brown Member ID Guarantor Name 12/03/2024 1 [employer] (MEDICARE REPLACEMENT/ ADVANTAGE - PPO) Mohinder Yin [id number] Mohinder Yin Notes Date Note Type Note Provider Name and Address Organization Details Recorded Time 12/03/2024 text/html Patient comes in today for FU Right Knee.Patient states they are worse than last visit.Patient denies new injury since last visitPain is intermittent dull ache in nature.The patient does not have numbness or tinglingThey have popping and clickingThey are able to sleep comfortably with this injury.Their pain is made better with resting the limbTheir pain is exacerbated by putting weight on and moving the affected limbOverall, the patient would say that their pain is not well-controlled at this time. SVETLANA BEAN PA-C [address] [place], [address], [facility] 12/04/2024 10:55:30 OBGyn Episode No OBEpisode recorded.
--- OUTSIDE RECORDS SUMMARY | 2025-01-09 22:25 | XMS_ITS | Encounter Summary ---
Author Organization Healthcare Address [address] [place] [address] Care Team Providers Care Maintenance Of Way Clerk Name Role Phone Mane Castro MD Primary Care Provider [phone] Ese Barone APRN Primary Care Provider +- [phone] Encounter Details Date Type Department Care Team (Late Contact Info) Description 08/21/2023 Orders Only External Location [address] [place] [address] Provider, External Social History Tobacco Use Types [...] Description 06/04/2025 11:00 AM EDT Office Visit [facility] [address], [address] [place] [address] Garrett Galvin MD [address] [place] [phone] documented as of this encounter Procedures Procedure [...] on filedocumented in this encounter Care Teams Maintenance Of Way Clerk Relationship Specialty Start Date End Date Mane Castro MD [address] [place] [facility] [address] [address] PCP - General Internal Medicine 11/23/23 12/03/24 Ese Barone APRN [address] [place] [address] PCP - General 12/04/24 documented as of this encounter
--- OUTSIDE RECORDS SUMMARY | 2025-01-09 22:25 | XMS_ITS | Data Portability ---
Author Organization [facility] Address [address] [facility] [address] [place] [address] Care Team Providers Care Manager Image Name Role Phone HIEU CAROLINA Referring Provider [phone] ROD YANEZ Primary Care Provider KEVIN CARVALHO Orthopedic Surgeon Assessment No assessment recorded. Plan of Treatment Reminders Order Date Submit Date Provider Last Modified By Organization Details Last Modified Time Details Appointments None recorded. Lab None recorded. Referral physical therapist referral 2023 024 [facility], [address] [place] [address] , [place], [address], 4 14:15:29 Procedures None recorded. Surgeries None [...] knee, 4 or more view [place]had[place] [facility] [place] [address] [place] [address] Patien t Name: JERRY Baez CHRISTEN ER Patipadmini t : 1949 Patien t Orderi [...] Sharmin low MD on 024 10:30 AM [email or web address] [facility] [place] [address], [place], [address], 06/30/2023 12:43:19 06/30/19 24 06/30/2023 XR, joint , multi ple, 1 view [facility] [place] [address] [place] [address] Patien t Name: JERRY VELÁSQUEZ ER Patipadmini t : 1949 Patipadmini t Orderi ng Provid er: HIEU ERIC [...] Sharmin low MD on 12:35 PM [email or web address] [facility] [place] [address] , [place], [address], 07/01/2023 20:48:30 08/09/19 24 08/09/2023 XR, knee, 3 view [facility] [address] [place] [address] Patipadmini t Name: JERRY Muniz t : 1949 Patipadmini t Orderi ng Provid er: PREETHI A DOMINIQUEASPEN EXAM DATE: 2023 EXAM: XR LT KNEE 3 VIEWS COMPAR KENNEDI: HISTOR Y: Follow -up of prior surger y. FINDIN GS: There has been interv al placem [...] Sharmin low MD on 11:55 AM [email or web address] [facility] [address] , [place], [address], 08/09/2023 12:38:43 09/27/19 24 09/27/2023 XR, knee, 3 view [facility] candelario [facility] [address] [place] [address] Patipadmini t Name: JERRY Muniz t : 1949 Patipadmini t Orderi ng Provid er: CAMELIA SAWANT EXAM DATE: 2023 EXAM: XR LT KNEE 3 VIEWS COMPAR KENNEDI: HISTOR Y: Follow -up of prior surger y. FINDIN GS: Again seen is a left knee [...] ing. Interp reted By: Sharmin low MD [facility] onical ly Signed By: Sharmin low MD on 024 10:16 AM [email or web address] [facility] [place] [address] , [place], [address], 09/27/2023 10:46:03 07/06/19 25 07/05/2024 XR, knee, 4 or more view [facility] [address] [place] [address] Patipadmini t Name: JERRY VELÁSQUEZ ER Patipadmini garcia : 1949 Patipadmini t Orderi ng Provid er: SVETLANA GENEVA EXAM DATE: 2024 EXAM: XR RT KNEE [...] total knee arthro plasty is place. IMPRES SETHER: 1. There are severe degene rative change s in the right knee. Interp reted By: Sharmin low MD [facility] onical ly Signed By: Sharmin low MD on 025 3:36 PM [email or web address] [facility] [place] [address] , [place], [address], 07/15/2024 13:22:35 Result Notes Documentation Provider Name and Address Organization Details Recorded Time Xr, Knee, 3 View : [facility] [place] [address] [place] [address] Patient Name: EARNEST YIN Patient : 1950 Patient Ordering Provider: PREETHI SCHMITT EXAM DATE: 08/09/2023 EXAM: XR LT KNEE 3 VIEWS COMPARISON: 06/30/2023 HISTORY: Follow-up of prior surgery. FINDINGS: There has been interval placement of a left knee total arthroplasty. There is no evidence of loosening. No fracture is identified. Contralateral knee: There are moderate degenerative changes. IMPRESSION: 1. There is a left total knee arthroplasty in place without evidence of loosening. Interpreted By: Leonardo Taylor MD THI SCHMITT PA-C [address] [place] [address], [address], [facility] 08/09/2023 12:38:43 Xr, Knee, 3 View : [facility] [address] [place] [address] Patient Name: EARNEST YIN Patient : 1950 Patient Ordering Provider: CAMELIA SAWANT EXAM DATE: 09/27/2023 EXAM: XR LT KNEE 3 VIEWS COMPARISON: 08/09/2023 HISTORY: Follow-up of prior surgery. FINDINGS: Again seen is a left knee total arthroplasty. There is no evidence of loosening. No fracture is identified. Contralateral knee: There are moderate to severe degenerative changes. IMPRESSION: 1. There is a left total knee arthroplasty in place without evidence of loosening. Interpreted By: Leonardo Taylor MD LIA SAWANT PA-C [address] [place], [address], [facility] 09/27/2023 10:46:03 Xr, Knee, 4 Or More View : [facility] [address] [place] [address] Patient Name: EARNEST YIN Patient : 1950 Patient Ordering Provider: SVETLANA BEAN EXAM DATE: 07/05/2024 EXAM: XR RT KNEE COMPLETE, 4 OR MORE VWS COMPARISON: 06/30/2023 HISTORY: Right knee pain. FINDINGS: No fracture is identified. There are severe degenerative changes in the right knee. There is near complete medial joint space loss. There is moderate to severe marginal spurring. Contralateral knee: There is a total knee arthroplasty is place. IMPRESSION: 1. There are severe degenerative changes in the right knee. Interpreted By: Leonardo Taylor MD LANA BEAN PA-C [address] [place] [address], [address], [facility] 07/15/2024 13:22:35 Problems Name Problem SNOMED Code Status Onset Date Resolution Date Notes Provider Name and Address Organization Details Recorded Time History of major abdominal surgery 623373375 Active 2023 HIEU BEACH MD [address] [place] [address], [address], [facility] 4 16:51:37 Type 2 diabetes mellitus without complicatio n 974637044 Active 2023 HIEU BEACH MD [address] [place] [address], [address], [facility] 4 16:51:38 Osteoarthri tis of left knee joint 9828477618798 09 Active 2023 HIEU BEACH MD [address] [place] [address], [address], [facility] 4 16:51:39 Problem Notes None recorded. Procedures Surgical History Date Name Laterality Status Provider Name and Address Organization Details Recorded Time 12/04/19 25 Injection - Joint/Bursa, Parvez completed SVETLANA BEAN PA-C [address] [place] [address], [address], [facility] 12/04/2024 10:55:10 07/06/19 25 Injection - Joint/Bursa, Parvez BEAN PA-C [address] [place] [address], [place], [address], [facility] 07/05/2024 16:43:35 09/27/19 24 Injection - Joint/Bursa, Major completed CAMELIA SAWANT PA-C [address] [place], [address], [facility] 09/27/2023 10:44:43 07/19/19 24 total replacement of left knee joint completed Magi Niño [facility] 08/09/2023 11:29:28 07/13/19 24 PCM Visit completed Sin [facility] 07/17/2023 10:52:34 04/26/19 24 Injection - Joint/Bursa, Major completed SVETLANA BEAN PA-C [address] [place], [address], [facility] 04/26/2023 10:10:20 12/13/19 23 Injection - Joint/Bursa, Major completed SVETLANA BEAN PA-C [address] [place], [address], [facility] 12/12/2022 13:44:08 07/08/19 23 Injection - Joint/Bursa, Major completed SVETLANA BEAN PA-C [address] [place], [address], [facility] 07/26/2022 14:42:55 08/19/19 22 Injection - Joint/Bursa, Major completed KEVIN CARVALHO MD [address] [place], [address], [facility] 08/18/2021 09:11:40 laminectomy completed Magi Niño [facility] 08/18/2021 08:44:04 cholecystectomy completed Magieula Niño [facility] 08/18/2021 08:44:11 Unlisted ariana pagan's [email or web address] completed Magi [facility] 08/18/2021 08:44:33 Imaging Results None recorded. Procedure Notes None recorded. Medical Equipment None Reported. Allergies Allergen ID Allergen Name Allergen Category Reaction Reaction Severity Criticality Documentation Date Start Date Code Code System Note Provider Name and Address Organization Details Recorded Time 009402 Product containin g penicilli n (product) medicatio n Not available Not available Not available 08/18/2021 97473 8001 SNOMED Magi Niño [facility] 2 08:40:20 008988 Lasix medicatio n Not available Not available Not available 08/18/2021 55042 1 RxNorm Magi Niño [facility] 2 08:40:24 867316 losartan medicatio n Not available Not available Not available 08/18/2021 69168 RxNorm Magi Niño [facility] 2 08:40:30 Medications Name [...] 2023 active Not Available Not Available Not Jarettai kellen Vitalsara Date Recorded Body height Body mass index (BMI) Body weight Pain severity - 0-10 verbal numeric rating [Score] - Reported Provider Name and Address Organization Details Last Updated DateTime 07/05/2024 170.18 cm 34.5 kg/m2 24721.32 g 5 Gela Mockdianna [facility] 07/05/2024 14:23:45 Date Recorded Body height Body mass index (BMI) Body weight Pain severity - 0-10 verbal numeric rating [Score] - Reported Provider Name and Address Organization Details Last Updated DateTime 08/09/2023 170.18 cm 38.4 kg/m2 790779.13 g 1 Magi Niño [facility] 08/09/2023 11:45:12 Date Recorded Body height Body mass index (BMI) Body weight Provider Name and Address Organization Details Last Updated DateTime 09/27/2023 170.18 cm 38.4 kg/m2 753632.13 g Kevin Sierra [facility] 09/27/2023 10:26:53 Social History Question Answer Notes LastModified by [email or web address] Details LastModified Time Tobacco Smoking Status Never Smoker Magi Niño [facility] 08/18/2021 08:43:35 What Is Your Level Of Caffeine Consumption? Moderate [email or web address] Information not available 08/18/2021 What Was The Date Of Your Most Recent Tobacco Screening? 08/09/2023 [email or web address] Information not available 08/09/2023 What Is Your Relationship Status? [email or web address] Information not available 08/18/2021 Has Tobacco Cessation Counseling Been Provided? No [email or web address] Information not available 08/18/2021 Sex: Female Functional Status Question Answer Note LastModified by Organizat ion Details LastModified Time Do you use any illicit or recreational drugs? No [email or web address] Information not available 08/18/2021 Do you or have you ever used any other forms of tobacco or nicotine? No [email or web address] Information not available 08/18/2021 What is your level of alcohol consumption? None [email or web address] Information not available 08/18/2021 Are you currently employed? No retired Information not available 08/18/2021 Mental Status None recorded. Family History Relationship Description Onset Age of this Age Resolved Age Notes LastModified by Organization Details LastModified Time Father No current problems or disability [email or web address] Not available 03/2021 08:43:19 Mother No current problems or disability [email or web address] Not available 03/2021 08:43:19 Medical History Condition Response Allergies/Hayfever N Other Y Gout N Anxiety/Depression Y Thyroid Disease N Heart Conditions N Kidney Stones N Hernia N Migraines N COPD N Glaucoma N Pneumonia N Skin Problems N Immune System Disorder N Anesthesia Complications N Heart Attack ([place]) N Mental Illness N Neurological Problems N [...] ICD10 Code Diagnosis IMO Codes Diagnosis Note [id number] [facility]M[place] [address] 06/20/2016 22:53:34 06/20/2016 22:53:34 [id number] ABRAN WAGNER APRN CARDIOLOG Y [address] [place] [address] 10/24/2016 11:22:00 10/25/2016 12:07:56 Palpitations 75067808 R00.2 EKG today reveals NSR, 62 QT/QTc 398/403. Palpitatio ns improved after smoking cessation. Will check TSH today as she states that has not been done in a year. No further testing recommende d. If palpitatio ns return or worsen, recommend 24 hour Holter monitor for evaluation of rate and rhythm. Pulmonary hypertension 97512672 I27.2 RVSP 40-45 per patient report. Echocardio gram in 2014 revealed RVSP of 35. Will review 2017 report when available. Recommend Echocardio gram next year for progressio n. If Echocardio gram relatively unchanged at next office visit, she can have repeat Echocardio gram every 2-3 years or sooner if concerning symptoms arise. Essential hypertension 58210264 I10 BP today 130/84; well controlled on HCTZ 25mg daily. Continue current regimen. Low sodium diet advised. Obstructiv e sleep apnea syndrome 46768216 G47.33 Noted. Is compliant with CPAP. Continued compliance advised. [id number] KEVIN CARVALHO MD [facility] [address] [place] [address] 08/18/2021 08:28:37 08/18/2021 09:37:42 Tear of medial meniscus of knee 866230128 S83.242A Assessment : Left knee medial meniscus [...] repeat injection if they are beneficial . [id number] SVETLANA BEAN PA-C [facility] [address] [place] [address] 08/23/2021 14:33:54 08/23/2021 16:35:04 Pain of left knee joint 7216695074 04028 M25.562 Assessment : Probable MCL sprain and [...] in 2 weeks for recheck with me. [id number] SVETLANA BEAN PA-C [facility] [address] [place] [address] 09/06/2021 10:12:07 09/06/2021 10:43:02 Pain of left knee joint 7148481812 79327 M25.562 Assessment : Pain of left knee jointPlan: She states her Mobic has controlled the pain well so far and I believe she has made great progress lali g her range of motion gains and pain improvemen t since last visit. From my standpoint she may follow-up in roughly 3 months for recheck. [id number] SVETLANA BEAN PA-C [facility] [address] [place] [address] 07/07/2022 10:54:57 07/07/2022 12:30:28 Pain of left knee joint 1714382095 39452 M25.562 Assessment : Follow-up for repeat steroid injection into the left knee.Plan: Injection tolerated well today. Follow-up as needed. [id number] SVETLANA BEAN PA-C [facility] [address] [place] [address] 12/12/2022 13:06:36 12/12/2022 14:59:54 Arthritis of left knee joint 6207244070 445884 M13.862 Derangemen t of lateral meniscus of right knee 9104665223 47418 M23.200 Assessment : 1 Right lateral joint [...] I find reasonable . Follow-up as needed. [id number] SVETLANA BEAN PA-C [facility] [address] [place] [address] 04/26/2023 09:45:52 04/28/2023 09:12:55 Osteoarthritis of knee 153049467 M17.11 M17.12 Assessment : Repeat bilateral steroid injections into right and left knees, which both have some level of degenerati ve changes. Plan: Steroid injections tolerated well without complicati on. The patient may repeat this injection every 3 months. [id number] CAMELIA SAWANT PA-C [facility] [address] [facility] [address] 06/30/2023 09:40:18 06/30/2023 11:25:15 Bilateral osteoarthritis of knees 1969869412 39034 M17.0 Mrs. Yin is a mariana 73 [...] today. I will set her up with rough patcher and have her see Dr. Sun for formal surgical discussion along with risks/bene fits of a total knee arthroplas ty. Possible surgery: Stacia sierra medical history: pulmonary HTN , DMII A1c 5.6 (recent ~1 month)Othe r notable informatio n: sister (Vannesa Dowd) just had her knees replaced by Dr. Sun Pain of bi lateral knee joints 0187748499 87460 M25.561 M25.562 [id number] HIEU Zavala MD [facility] [address] [address] 07/04/2023 12:51:35 07/04/2023 14:14:52 Osteoarthritis of left knee joint 5144398765 75136 M17.12 ASSESSMENT : DJD LEFT knee PLAN:The [...] potential cost sharing responsibi lities; only one [facility] can furnish and bill for PCM services during a calendar month, and the patient can stop these services at any time. The patient understand s and has verbally consented to accept PCM services and has been provided a copy of a written explanatio n of this service today. Surgery date: 07-19-23 [facility] location: [facility] equipment: Cemented Fermín MCPre-op clearance: PASSOther medical clearance: DVT prophylaxi s: ASA, TEDAdmissi on status: OUTPATIENT Discharge plan: overnight admissionP T: home health Allergies: PCNSkin testing: No Type 2 tanisha betes mellitus without complication 600699587 E11.9 Well-contr olled on metformin per patient [...] complicati ons. History of major abdominal surgery 762565581 Z98.890 Numerous abdominal surgeries related to perforated diverticul um. This does increase her risk for small bowel obstructio n, ileus, and other abdominal complicati ons following elective TKA. [id number] HIEU Zavala MD [facility] [address] [place] [address] 07/13/2023 15:34:26 07/18/2023 08:49:46 [id number] HIEU Zavala MD SURGERY SCHEDULE [address] [place] [address] 07/19/2023 13:20:19 07/21/2023 14:20:11 [id number] CAMELIA SAWANT PA-C [facility] [address] [place] [address] 08/09/2023 11:21:00 08/09/2023 11:56:04 History of total knee arthroplasty 4701808733 105 Z96.659 Mrs. Yin is a mariana [...] post op follow up with radiograph s. [id number] CAMELIA SAWANT PA-C [facility] [address] [place] [address] 09/27/2023 09:51:37 09/27/2023 10:41:58 History of total knee arthroplasty 0724853674 105 Z96.659 Mrs. Yin is a mariana [...] CSI Osteoarthr itis of right knee joint 7087170412 92591 M17.11 [id number] SVETLANA BEAN PA-C [facility] [address] [place] [address] 07/05/2024 13:13:07 07/05/2024 15:48:52 Osteoarthritis of right knee joint 9181267795 83098 M17.11 [id number] Assessment : Osteoarthr itis right knee Plan: Steroid injection tolerated well without complicati on. Follow-up as needed. [id number] SVETLANA BEAN PA-C [facility] [address] [place] [address] 12/03/2024 08:35:46 12/09/2024 11:42:09 Osteoarthritis of right knee joint 0679466949 47078 M17.11 [id number] Assessment : Osteoarthr itis right knee Plan: [...] Member ID Guarantor Name 01/01/2024 PAYMENT PLAN Earnest Yin 12/02/2024 1 [place] Earnest Yin [id number] Earnest Yin 12/09/2024 1 [employer] (MEDICARE REPLACEMENT/ ADVANTAGE - PPO) Earnest Yin [id number] Earnest Yin Notes Date Note Type Note Provider Name and Address Organization Details Recorded Time 08/09/2023 text/html 08/09/23 Patient is 3 weeks s/p L TKA. s/p 07/19/23.Pain is improvingCurrently taking no doses per day of narcotic. Tylenol 3 only at bedtime.Ambulating with canePT: home healthto start Outpatient soon Denies fevers, chills, or wound drainage.They do not request a refill of pain medicine. Operative cultures Not Obtained CAMELIA SAWANT PA-C [address] [place], [address], [facility] 08/09/2023 13:47:59 09/27/2023 text/html 09/27/23Patient is here today for 8 week post op visit from L [...] cultures Not Obtained CAMELIA SAWANT PA-C [address] [place], [address], [facility] 09/27/2023 10:45:54 07/05/2024 text/html WHAT: right knee. WHEN: 3 weeks HOW: no injury SYMPTOMS: pain and instability is the main concern Pain is intermittent . The patient does not have numbness or tingling They have popping and clicking They are not able to sleep comfortably with this injury. Their pain is made better with resting the limb Their pain is exacerbated by bearing weight on the affected limb. Overall, the patient would say that their pain is well-controlled at this time PAIN: X-RAY: LC MRI: none PT: none INJECTION: none SVETLANA BEAN PA-C [address] [place], [address], [facility] 07/05/2024 16:43:43 12/03/2024 text/html Patient comes in today for [...] at this time. SVETLANA BEAN PA-C [address] [place], [address], [facility] 12/04/2024 10:55:30 OBGyn Episode No OBEpisode recorded.
--- OUTSIDE RECORDS SUMMARY | 2025-01-09 22:25 | XMS_ITS | Clinical Summary ---
Author Organization [facility] Address [address] [place] [address] Care Team Providers Care Change Director Name Role Phone Ese Barone ERNIQUE Primary Care Provider [phone] Allergies Active Allergy Reactions Criticality Noted Date [...] Description 12/04/2024 11:00 AM EDT Office Visit [facility] General Surgery [address], [facility] [place] [address] Garrett Galvin MD Personal history of nutritional deficiency (Primary Dx); Recurrent incisional hernia 12/04/2024 Travel 11/25/2024 Telephone [facility] General Surgery [address], [facility] [place] [address] Erica Alicea, QUENCHING CAR OPERATOR 11/04/2024 Telephone [facility] General Surgery [address], [facility] [place] [address] Erica Alicea, QUENCHING CAR OPERATOR 10/23/2024 Telephone [facility] General Surgery [address], [facility] [place] [address] Erica Alicea, QUENCHING CAR OPERATOR from Last 3 Months Family History [...] Description 06/04/2025 11:00 AM EDT Office Visit [facility] General Surgery [address], [address] [place] [address] Garrett Galvin MD [address] [address] Health Maintenance Due Date Last Done Comments [facility]-Bone Density Scan 1950 [facility]-Hepatitis C Screening 1950 [facility]-Medicare Annual Wellness (AWV) 1950 [facility]-/Child/Adol SDOH Screenings 1950 Diabetes: Dental Exam 1961 [facility]- SDOH Screenings 1969 [facility]-Adult SDOH Screenings 1969 [facility]-Diabetes: Hemoglobin A1C 11/03/2019 05/06/2019 [facility]-Breast Cancer Screening 07/05/202406/18, 04/05/2022, 01/24/2022, Additional history exists [id number] Vaccine ( season) 2024 12/07/2023, 07/20/2021, 12/16/2020, [...] complete this topic Insurance Janene YOUNGASPEN Arellano [id number] [facility] MEDICARE Care Teams Change Director Relationship Specialty Start Date End Date Ese Barone APRN [address] [place] [address] PCP - General 12/04/24
--- OUTSIDE RECORDS SUMMARY | 2025-01-09 22:25 | XMS_ITS | Encounter Summary ---
Author Organization Healthcare Address [address] [place] [address] Care Team Providers Care Anesthesiology Medical Doctor Name Role Phone Mane Castro MD Primary Care Provider [phone] Ese Barone APRN Primary Care Provider + [phone] Encounter Details Date Type Department Care Team (Late Contact Info) Description 02/19/2024 Orders Only External Location [address] [place] [address] Tamia Hernandez MD [address] [facility] [address] [place] [address] Social History Tobacco Use Types Packs/Day Years [...] Description 06/04/2025 11:00 AM EDT Office Visit [facility] General [facility] [address] [place] [address] Garrett Galvin MD [address] [address] documented as of this encounter Procedures Procedure [...] documented as of this encounter Care Teams Anesthesiology Medical Doctor Relationship Specialty Start Date End Date Mane Castro MD [address] [place] [address] PCP - General Internal Medicine 11/23/23 12/03/24 Ese Barone APRN [address] [place] [address] PCP - General 12/04/24 documented as of this encounter
--- OUTSIDE RECORDS SUMMARY | 2025-01-09 22:25 | XMS_ITS | Encounter Summary ---
Author Organization Healthcare Address [address] [place] [address] Care Team Providers Care Home Care Provider Name Role Phone Mane Castro MD Primary Care Provider [phone] Ese Barone APRN Primary Care Provider [phone]- [phone] Encounter Details Date Type Department Care Team (Late Contact Info) Description 08/21/2023 Orders Only External Location [address] [place] [address] Provider, External Social History Tobacco Use Types [...] Description 06/04/2025 11:00 AM EDT Office Visit [facility] General Surgery [address] 1[address] [place] [address] Garrett Galvin MD [address] [place] [phone] documented as of this encounter Procedures Procedure [...] on filedocumented in this encounter Care Teams Home Care Provider Relationship Specialty Start Date End Date Mane Castro MD [address] [place] [facility] [address] [address] PCP - General Internal Medicine 11/23/23 12/03/24 Ees Barone APRN [address] [place] [address] PCP - General 12/04/24 documented as of this encounter
--- OUTSIDE RECORDS SUMMARY | 2025-01-09 22:25 | XMS_ITS | Clinical Summary ---
Author Organization [facility] Address [address] [place] [address] Care Team Providers Care Regional Ehs Manager Name Role Phone Ese Barone APRN [...] Department Care Team Description 12/12/2024 Patient rounding ([facility]) [facility] RHEUMATOLOGY [address] [address] Colette Enamorado RegSched Rep 12/09/2024 Results Follow-Up [facility] RHEUMAT[facility] [address] [address] Yeison Estrada MD 12/05/2024 11:45 AM EDT Ancillary Procedure [facility] [address] [address] 12/05/2024 11:00 AM EDT Office Visit [facility] RHEUMATOLOGY [address] [address] Yeison Estrada MD Rheumatoid factor positive (Primary [...] Info) Description 02/17/2025 11:30 AM EST Appointment [facility] 3000 [facility] [address] [place] [address] 02/17/2025 1:30 PM EST Office Visit [facility] HEMATOLOGY & ONCOLOGY 3000 [facility] [address] [place] [address] Luda Haile, TOUR SALES REPRESENTATIVE [address] [facility] [address] [place] [address] 04/22/2025 4:15 PM EST Office Visit [facility] RHEUMATOLOGY 330 [facility] 100 [place] [address] Yeison Estrada MD 330 [facility] 100 [place] [address] Health Maintenance Due Date Last Done Comments [...] A1C 01/12/2024 07/13/2023, 04/2 07/2023, 05/06/2019 MAMMOGRAM 07/05/2024 07/05/2022, 06/18, 04/05/2022, Additional history exists INFLUENZA VACCINE 10/18/2024 12/07/2023, , 12/30/2019, Additional history exists COVID-19 Vaccine (6 - Modern a risk season) 2024 12/07/2023, 07/20/2021, 12/16/2020, Additional history exists ZOSTER VACCINE (2 of 2) 11/22/2024 09/27/2024 TDAP/TD VACCINES (2 - Td or Tdap) 09/27/2034 Pneumococcal Vaccine 50+ Completed 025, 10/15/2018, 05/05/2016 HEPATITIS C SCREENING Completed 12/05/2024 Medical Devices Implanted Type Area Patent Law Specialist Device Identifier Shelf Expiration Date Model / Serial / Lot Stplr Crv Cut Contrd 3mm Neymar Cs40b - [id number] Implanted:Qty : 1 on 02/16/2019 by Humberto Cordova MD at [facility] Implant N/A: Abdomen [employer] DIV OF J AND J 06/18/2023 CS40B / / [id number] Reload Stplr Cut Contrd Std 3 Neymar Cr40b - [id number] Implanted:Qty : 1 on 02/16/2019 by Humberto Cordova MD at [facility] Implant N/A: Abdomen [employer] OF J AND J 03/19/2022 CR40B / / [id number] Stplr Lnr Cut Prox Thk 55mm Grn Tct55 - [id number] Implanted:Qty : 1 on 05/13/2019 by Kade Lance MD at [facility] Implant N/A: Abdomen [employer] DIV [employer] J [employer] J 03/19/2024 TCT55 / / [id number] Description:Minetto only rem ain in patient Stplr Endo Crv 29mm Ecs29a - [id number] Implanted:Qty : 1 on 05/13/2019 by Kade Lance MD at [facility] Implant N/A: Abdomen [employer] DIV OF J AND J 02/17/2024 [id number] / / [id number] Description:Minetto only imp lant left in patient. Procedures [...] 12:1 5 PM EDT 12/05/2024 Narrative [facility] (AMBULATORY) - 12/09/2024 9:07 AM EDT Performed at: - [address] [id number] Delivery Professional: Guerrero Suero PhD, Phone: [phone] Patient Fasting: N us Yeison Estrada MD LAB BLOOD ORDERABLES Final Res ult [facility] [address] [place] [address], [facility] [address] [place] [address], * Hepatitis C Virus Interpretation (12/05/2024 12:15 PM EDT) Interpretation Comment [facility] Comment: Not infected with HCV unless early or acute infection is suspected (which may be delayed in an immunocompromised individual), or other evidence exists to indicate HCV infection. 12/05/2024 12:1 5 PM EDT 12/05/2024 Narrative [facility] (AMBULATORY) - 12/09/2024 9:07 AM EDT Performed at: [address] [id number] Delivery Professional: Guerrero Suero PhD, Phone: [phone] Patient Fasting: N us Yeison Estrada MD LAB BLOOD ORDERABLES Final Res ult Performing Organization Address [facility] Co de Phone Number [facility] ([facility] [address] [place] [address], [facility] [address] [place] [address], * (ABNORMAL) Rheumatoid Factor (12/05/2024 12:15 PM EDT) Pathologist [facility] RA Latex Turbid 68.4(H) <14.0 IU/mL [facility] Blood 12/05/2024 12:1 5 PM EDT 12/05/2024 Narrative [facility] (AMBULATORY) - 12/09/2024 9:07 AM EDT Performed at: [address] [id number] Delivery Professional: Guerrero Suero PhD, Phone: [phone] Patient Fasting: N us Yeison Estrada MD LAB BLOOD ORDERABLES Final Res ult Performing Organization Address [facility] [address]/[facility] Co de Phone Number [facility] ([facility] [address] [place] [address], [facility] [address] [place] [address], * Cyclic Citrul Peptide Antibody, IgG / IgA (12/05/2024 12:15 PM EDT) Pathologist [facility] CCP Antibodies IgG/IgA 8 0 - 19 units [facility] Comment: Negative <20 Weak positive 20 - 39 Moderate positive 40 - 59 Strong positive >59 Blood 12/05/2024 12:1 5 PM EDT 12/05/2024 Narrative [facility] (AMBULATORY) - 12/09/2024 9:07 AM EDT Performed at: [address] [id number] Delivery Professional: Guerrero Suero PhD, Phone: [phone] Patient Fasting: N us Yeison Estrada MD LAB BLOOD ORDERABLES Final Res ult Performing Organization Address City/[facility] [address]/ZIP Co de Phone Number [facility] ([facility]) [address] [place] [address], [facility] [address] [place] [address], * Hepatitis Panel, Acute (12/05/2024 12:15 PM EDT) Pathologist [facility] Hep A IgM Negative Negative [facility] Comment: A negative anti-HAV IgM result suggests no recent or current HAV infection. Hepatitis B Surface Ag Negative Negative [facility] Hep B Core IgM Negative Negative [facility] Hepatitis C Ab Non Reactive Non Reactive [facility] Blood 12/05/2024 12:1 5 PM EDT 12/05/2024 Narrative [facility] (AMBULATORY) - 12/09/2024 9:07 AM EDT Performed at: [address] [place] [id number] Delivery Professional: Guerrero Suero PhD, Phone: [phone] Patient Fasting: N us Yeison Estrada MD LAB BLOOD ORDERABLES Final Res ult Performing Organization Address [facility] [address]/[facility] Co de Phone Number [facility] ([facility]) [address] [place] [address], [facility] [address] [place] [address], * Sedimentation Rate (12/05/2024 12:15 PM EDT) [facility] Sed Rate 15 0 - 30 mm/hr [facility] Blood 12/05/2024 12:1 5 PM EDT 12/05/2024 [facility] (AMBULATORY) - 12/09/2024 9:07 AM EDT Performed at: [address] [place] [id number] Delivery Professional: Lewis Henley MD, Phone: [phone] Patient Fasting: N us Yeison Estrada MD LAB BLOOD ORDERABLES Final Res ult [facility] (AMBULATORY) [address] [place] [address], [place] [phone] [facility] [address] [place] [address], * CBC & Differential (12/05/2024 12:15 PM [...] - 12/09/2024 9:07 AM EDT Performed at: [address] [place] [id number] Delivery Professional: Lewis Henley MD, Phone: [phone] Patient Fasting: N us Yeison Estrada MD LAB BLOOD ORDERABLES Final Res ult Performing Organization Address [facility] [address]/[facility] Co de Phone Number [facility] (AMBULATORY) [address] [place] [address], [facility] [address] [place] [address], * C-reactive Protein (12/05/2024 12:15 PM EDT) [facility] C-Reactive Protein <0.30 0.00 - 0.50 mg/dL [facility] Blood 12/05/2024 12:1 5 PM EDT 12/05/2024 Narrative [facility] (AMBULATORY) - 12/09/2024 9:07 AM EDT Performed at: [address] [place] [id number] Delivery Professional: Lewis Henley MD, Phone: [phone] Patient Fasting: N us Yeison Estrada MD LAB BLOOD ORDERABLES Final Res ult Performing Organization Address City/[facility] [address]/ZIP Co de Phone Number [facility] (AMBULATORY) [address] [place] [address], [facility] [address] [place] [address], * (ABNORMAL) Comprehensive Metabolic Panel (12/05/2024 12:15 PM EDT) Pathologist [facility] Glucose 84 65 - 99 mg/dL [facility] [...] 12/09/2024 9:07 AM EDT Performed at: [address] [id number] Delivery Professional: Lewis Henley MD, Phone: [phone] Patient Fasting: N us Yeison Estrada MD LAB BLOOD ORDERABLES Final Res ult [facility] (AMBULATORY) [address] [place] [address], [facility] [address] [place] [address], * XR Hand 2 View Bilateral (12/05/2024 [...] MD 12/09/2024 4:43 PM EDT Workstation ID: [id number] DxDesc DxDesc Narrative 12/09/2024 4:43 PM EDT [...] MD 12/09/2024 4:43 PM EDT Workstation ID: [id number] Tomveyi BidamonDesc Yeison Estrada MD IMG DIAGNOSTIC IMAGING ORDERAB [...] MD 12/09/2024 4:43 PM EDT Workstation ID: [id number] DxTraak Systemsc DxDesc Narrative 12/09/2024 4:43 PM EDT XR [...] MD 12/09/2024 4:43 PM EDT Workstation ID: [id number] DxDesc DxDesc Result [facility] Yeison Estrada MD IMG DIAGNOSTIC IMAGING ORDERAB LES Final Result * LABS SCANNED (11/04/2024) [facility] LAB BLOOD ORDERABLES Final Re sult * SCANNED - MAMMO (07/05/2022) Anatomical Region Laterality Modality Other [facility] CHART REVIEW TABS Final Re sult * Hemoglobin A1c (05/06/2019 12:37 PM EST) Pathologist [facility] Hemoglobin A1C 5.40 4.80 - 5.60 % 05/06/2019 1:34 PM EST [facility] Blood Venipuncture / Unknown 05/06/2019 12:37 PM EST 05/06/2019 12:52 PM EST Narrative [facility] - 05/06/2019 1:34 PM EST Hemoglobin A1C Ranges: Increased Risk for Diabetes 5.7% to 6.4% Diabetes >= 6.5% Diabetic Goal < 7.0% Kade Lance MD LAB BLOOD ORDERABLES Final Re sult [facility]
[address] [place] [address], * POC Occult Blood Stool (03/20/2019 3:04 PM EST) Pathologist [facility] Fecal Occult Blood Negative Negative [facility] Lot Number [id number] [facility] Expiration Date 62,022 [facility]IN [facility] DEVELOPER LOT NUMBER [id number] [facility] DEVELOPER EXPIRATION DATE 62, [facility] Positive Control Positive Positive [facility] Negative Control Negative Negative [facility] Stool Specimen from rectum / Unknown 03/20/2019 3:04 PM EST us Nicola Khan MD POINT OF CARE TEST ORDERA BLES Final Result [facility]
[address] [place] [id number], from Last 3 Months or Most Recently Relevant to Health Maintenance Insurance [facility] [employer] PPO Advance Directives Documents on File Type Date Recorded Patient Micro Computer Specialist Expl anation LIVING WILL - SCAN 05/13/2019 8:09 AM bay ng will [id number] * CPR (Attempt to Resuscitate) (Latest Code [...] Of Support Discussed With: Patient Care Teams Regional Ehs Manager Relationship Specialty Start Date End Date Ese Barone APRN [address] [place] [facility] [address] [facility] [address] [place] [address] PCP - General Family Medicine 01/24/22
--- OUTSIDE RECORDS SUMMARY | 2025-01-09 22:25 | XMS_ITS | Encounter Summary ---
Author Organization [facility] Address [address] [place] [address] Care Team Providers Care Hadoop Developer Name Role Phone Ese Barone APRN Primary [...] 02/17/2025 11:30 AM EST Appointment [facility] [address] [facility] [address] [place] [address] 02/17/2025 1:30 PM EST Office Visit [facility] HEMATOLOGY & ONCOLOGY [address] [facility] [address] [place] [phone] Luda Haile, BAG LOADER MACHINE OPERATOR 1700 [facility] [address] [place] [address] 04/22/2025 4:15 PM EST Office Visit [facility] RHEUMATOLOGY 330 [facility] 100 [place] [address] Yeison Estrada MD 330 [facility] 100 [place] [address] documented as of this encounter Visit Diagnoses Not on filedocumented in this encounter Care Teams Hadoop Developer Relationship Specialty Start Date End Date Ese Barone APRN 1210 [facility] [address] [facility] [address] [place] [address] PCP - General Family Medicine 01/24/22 documented as of this encounter
--- OUTSIDE RECORDS SUMMARY | 2025-01-09 22:25 | XMS_ITS | Encounter Summary ---
[facility] Organization [facility] Address [address] [place] [address] Care Team Providers Care Design Leader Name Role Phone LizabethEse salter Luda NUNEZ Primary Care Provid er Encounter Details Date Type Department Care Team (Late st Contact Info) Description 12/09/2024 Results Follow-Up [facility] RHEUMATOLOGY 330 [facility] 100 [place] [address] Yeison Estrada MD [address] [address] Social History Tobacco Use Types [...] Info) Description 02/17/2025 11:30 AM EST Appointment [facility] 3000 [facility] [address] [place] [address] 02/17/2025 1:30 PM EST Office Visit [facility] HEMATOLOGY & ONCOLOGY 3000 [facility] [address] [place] [address] Luda Haile, FEATHER SAWYER 1700 [facility] [address] [place] [address] 04/22/2025 4:15 PM EST Office Visit [facility] RHEUMATOLOGY 330 [facility] 100 [place] [address] Yeison Estrada MD 330 [facility] 100 [place] [address] documented as of this encounter Visit Diagnoses Not on filedocumented in this encounter Care Teams Design Leader Relationship Specialty Start Date End Date Ese Barone, ENRIQUE 1210 [facility] [address] [place] [address] PCP - General Family Medicine 01/24/22 documented as of this encounter
--- OUTSIDE RECORDS SUMMARY | 2025-01-09 22:25 | XMS_ITS | Encounter Summary ---
Author Organization [facility] Address [address] [place] [address] Care Team Providers Care Hedge Fund Manager Name Role Phone Lizabeth Ese Luda NUNEZ Primary Care Provid er Encounter Details Date Type Department Care Team (Late st Contact Info) Description 12/12/2024 Patient rounding ([facility] only) [facility] RHEUM[facility]OLOGY [address] [place] [address] Colette Enamorado RegSched Rep Social History Tobacco [...] FOLLOWING MESSAGE SENT TO THE PATIENT VIA MinuteKey: This is Colette, I am the patient access fast food shift supervisor for your new provider at [facility]. I am reaching out to welcome you [...] feel free to contact our office at [phone] with any questions or concerns. Thank you and have a wonderful day! PATIENT DID NOT RESPOND documented in this encounter Plan of Treatment Upcoming Encounters Date Type Department Care Team (Late st Contact Info) Description 02/17/2025 11:30 AM EST Appointment [facility] 3000 [facility] [address] [place] [address] 02/17/2025 1:30 PM EST Office Visit [facility] HEMATOLOGY & ONCOLOGY 3000 [facility] [address] [place] [address] Luda Haile, COMMERCIAL LEASING AGENT 1700 [facility] [address] [place] [address] 04/22/2025 4:15 PM EST Office Visit [facility] RHEUM[facility] 330 [facility] 100 [place] [address] Yeison Estrada MD 330 [facility] [address] [place] [address] documented as of this encounter Visit Diagnoses Not on filedocumented in this encounter Care Teams Hedge Fund Manager Relationship Specialty Start Date End Date Ese Barone APRN 1210 [facility] 36 E [facility] [address] [place] [address] PCP - General Family Medicine 01/24/22 documented as of this encounter
--- NOTE | 2025-01-09 22:31 | XR_ITS ---
PROCEDURE INFORMATION: Exam: XR Chest Exam date and time: 01/09/2025 11:01 PM Age: 74 years old Clinical indication: Pain; Chest pressure; Additional info: Chest pain/shortness of breath TECHNIQUE: Imaging protocol: Radiologic exam of the chest. Views: 1 view. COMPARISON: CR XR CHEST 2V 01/08/2024 4:47 PM FINDINGS: Lungs: Unremarkable. No consolidation. Pleural spaces: Unremarkable. No pleural effusion. No pneumothorax. Heart/Mediastinum: Unremarkable. No cardiomegaly. Bones/joints: Unremarkable. IMPRESSION: No acute findings.
--- NOTE | 2025-01-09 22:32 | CT_ITS ---
PROCEDURE INFORMATION: Exam: CTA Chest With Contrast Exam date and time: 01/09/2025 11:08 PM Age: 74 years old Clinical indication: Pain; Chest pressure; Additional info: Tachycardia TECHNIQUE: Imaging protocol: Computed tomographic angiography of the chest with contrast. Exam focused on the arteries. 3D rendering (Not supervised by radiologist): MIP and/or 3D reconstructed images were created by the technologist. Radiation optimization: All CT scans at this facility use at least one of these dose optimization techniques: automated exposure control; mA and/or kV adjustment per patient size (includes targeted exams where dose is matched to clinical indication); or iterative reconstruction. Contrast material: ISOVUE; Contrast volume: 80 ml; Contrast route: INTRAVENOUS (IV); COMPARISON: CT ANGIO CHEST PE PROTOCOL 10/02/2023 1:16 PM FINDINGS: Pulmonary arteries: Normal. No pulmonary emboli. Aorta: Unremarkable. No aortic aneurysm. No aortic dissection. Lungs: Unremarkable. No consolidation. No masses. Pleural spaces: Unremarkable. No pneumothorax. No pleural effusion. Heart: Unremarkable. No cardiomegaly. No pericardial effusion. Lymph nodes: Unremarkable. No enlarged lymph nodes. Bones/joints: Unremarkable. No acute fracture. Soft tissues: Unremarkable. IMPRESSION: No acute findings.
[2025-01-09 22:36] LABS: Hematocrit 45.4 % (37.0-47.0); Hemoglobin 15.1 g/dL (12.2-16.2); Immature Granulocytes % 0.3 %; Mean Corpuscular HGB Conc 33.3 g/dL (31.8-35.4); Mean Corpuscular Hemoglobin 29.8 pg (27.0-31.2); Mean Corpuscular Volume 89.7 fl (81-99); Nucleated Red Blood Cells % 0 %; Platelet Count 256 K/mm3 (142-424); Red Blood Count 5.06 M/mm3 (4.20-5.40); Red Cell Distribution Width-SD 45.2 fL; White Blood Count 9.7 K/mm3 (4.8-10.8)
[2025-01-09] MEDS: ASPIRIN 325MG TABLET 325 MG PO (22:36)
[2025-01-09] MEDS: METOPROLOL TARTRATE 5MG/5ML VIAL 5 MG IV (22:36)
[2025-01-09] MEDS: MAGNESIUM SULFATE IN WATER 2 GM/50 ML PIGGYBACK IV (22:36)
[2025-01-09 22:39] LABS: Albumin Level 4.4 g/dl (3.5-5.0); Chloride 98 mmol/L (98-107); Potassium 3.8 mmoL/L (3.5-5.1); Sodium 137 mmol/L (136-145)
[2025-01-09 22:42] LABS: Alanine Aminotransferase 12 U/L (12-78); Albumin/Globulin Ratio 1.2 (1.1-1.8); Alkaline Phosphatase 148 U/L (38-126); Anion Gap 10.8 mEq/L (5-15); Aspartate Amino Transferase 33 U/L (14-36); Bilirubin,Total 0.4 mg/dl (0.2-1.3); Blood Urea Nitrogen 34 mg/dl (7-17); Calcium 9.4 mg/dl (8.4-10.2); Carbon Dioxide 32 mmol/L (22.0-30.0); Creatinine Clearance Estimated 79 mL/min (50-200); Creatinine,Serum 1.00 mg/dl (0.52-1.04); Estimated Glomerular Filt Rate 54 ml/min (>60); GFR (African American) 66 ML/MIN (>60); Globulin 3.6 g/dL (1.3-3.2); Glucose 115 mg/dl (74-100); Total Protein,Serum 8.0 g/dl (6.3-8.2)
[2025-01-09 22:43] LABS: Magnesium 2.0 mg/dl (1.6-2.3)
--- NOTE | 2025-01-09 22:49 | ECG_ITS ---
APPROVED REPORT Exam: Resting ECG HR:91 bpm ECG Measurements Heart Rate 91 AXES QRSd 88 QRS -13 QT 396 T 19 QTc 444 Conclusion ATRIAL FIBRILLATION POSSIBLE ANTERIOR MYOCARDIAL INFARCTION , PROBABLY OLD [30 ms Q WAVE IN V3/V4, OR R < 0.2 mV IN V4] ABNORMAL RHYTHM ECG UNCONFIRMED REPORT Electronically signed by : BRIDGETTE CHAIDEZ, 01/10/2025 02:04:49
[2025-01-09 22:51] LABS: NT Pro Brain Natriuretic Pep. 23.4 pg/mL (0-125)
--- NOTE | 2025-01-09 22:53 | PC.NURSE ---
EKG ordered after medications due to rate change.
[2025-01-09 22:58] LABS: Troponin I < 0.01 ng/ml (0.00-0.034)
--- NOTE | 2025-01-09 23:10 | PC.NURSE ---
pt returned from radiology without incident.
[2025-01-09] MEDS: IOPAMIDOL-370 (76%);100ML BOTTLE 80 ML IV (23:14)
[2025-01-09] MEDS: 0.9 % SODIUM CHLORIDE 50 ML VIAL IV (23:14)
[2025-01-09] MEDS: SODIUM CHLORIDE 0.9% 10ML SYR (RAD ONLY) 10 ML IV (23:14)
--- NOTE | 2025-01-09 23:43 | PC.NURSE ---
ed provider at the bedside updating pt on POC
[2025-01-09] MEDS: LACTATED RINGERS 1000ML 1,000 ML 999 ML IV (23:58)
[2025-01-10] VITALS (18 sets, daily range): BP systolic 104–160; BP diastolic 69–101; PULSE 52–80; RESP 11–22; TEMP 36.7; O2SAT 94–99
--- NOTE | 2025-01-10 00:43 | PC.NURSE ---
pt ambulates with slow steady gait to restroom
--- NOTE | 2025-01-10 00:48 | PC.NURSE ---
pt back to bed, NAD noted, RR even and non labored, hooked back to cardiac monitoring.
--- NOTE | 2025-01-10 01:06 | [facility].EDGENADL ---
Discharge Plan Disposition Patient Disposition: Home, Self-Care Prescriptions Prescriptions: New rivaroxaban 15 mg (42)- 20 mg (9) tablets,dose pack See Rx Instructions .ROUTE .COMPLEX Qty: 51 0RF Rx Instructions: take one-15 mg tablet twice daily for 21 days, then one-20 mg tablet once daily; must take with meal/food No Action tramadol 50 mg tablet PO azithromycin [Zithromax Z-Rene] 250 mg tablet 250 mg PO QDAY Qty: 6 0RF Rx Instructions: Take 2 pills the first day and then one tablet per day fluticasone propionate [Flonase Allergy Relief] 50 mcg/actuation spray,suspension 1 spray intranasal DAILY Qty: 16 2RF Rx Instructions: administer into each nostril phenazopyridine 100 mg tablet 100 mg PO QPC PRN (Reason: pain) Qty: 6 0RF lisinopril 20 mg tablet 20 mg PO DAILY Patient Comments: TAKE 1 TABLET BY MOUTH DAILY hydrochlorothiazide 25 mg tablet 25 mg PO DAILY Qty: 30 6RF potassium chloride 10 mEq capsule, extended release 10 meq PO DAILY meloxicam 15 mg tablet 15 mg PO DAILY Patient Comments: TAKE 1 TABLET BY MOUTH DAILY NEEDED FOR ARTHRITIS PAIN paroxetine HCl 20 mg tablet 20 mg PO DAILY Patient Comments: TAKE 1 TABLET BY MOUTH DAILY bumetanide 1 mg tablet 1.5 mg PO DAILY Patient Comments: TAKE 1 AND 1/2 TABLETS BY MOUTH EVERY DAY Referrals Follow up/Referrals: Ese Barone APRN [Primary Care Provider, Medical] - See instructions Activity Restrictions/Add. Instructions Additional Instructions/Restrictions: Please take anticoagulation as prescribed for 1 month. Please follow-up with your PCP/cardiology. Clinical Impressions Clinical Impression: Atrial fibrillation with RVR Print Language Print Language: Surinamese Discharge ED Provider: James Magana General Adult HPI <Bhavna Raymundo DO - Last Filed: 01/10/25 01:14> General Chief complaint: Chest Pain Stated complaint: Chest Pain Time Seen by Provider: 01/09/25 22:24 Mode of Arrival: Wheelchair Source of Information: Patient Description of Symptoms (Recalled from ER Triage Doc. by RN): pt presents with c/o HTN and tachycardia that began approx 2130 while the patient was sitting. Reports bilateral jaw pain with intermittent chest pain. Pt reports to taking extra dose of lisinopril at home. Pt reports assoiated headache. History of Present Illness HPI narrative: Patient is a 74-year-old female with a past medical history of pulmonary embolisms previously provoked from a previous knee surgery who presented to the emergency department with chest pain, jaw pain as well as palpitations that started acutely at 9:30 PM. Patient states that her symptoms felt like both palpitations as well as that her heart was racing. Patient states that she had 1 episode similar in the past that was very transient and occurred when she was much younger. Patient does have a history of hypertension and takes lisinopril at home. Patient states that the chest pain was pressure in nature but quickly resolved. Patient states that her jaw pain has improved as well. Patient is currently not complaining of a headache or vision changes abdominal pain nausea vomiting or diarrhea. Patient denies any fevers cough chills or other infectious symptoms. Patient states that she does not have a history of A-fib, patient is not currently on blood thinners. Patient denies any other cardiac history. Related Data Home Medications ?Medication ?Instructions ?Recorded ?Confirmed bumetanide 1 mg tablet 1.5 mg PO DAILY 01/08/24 11/09/24 meloxicam 15 mg tablet 15 mg PO DAILY 01/08/24 11/09/24 paroxetine HCl 20 mg tablet 20 mg PO DAILY 01/08/24 11/09/24 potassium chloride 10 mEq 10 meq PO DAILY 01/08/24 11/09/24 capsule,extended release lisinopril 20 mg tablet 20 mg PO DAILY 11/04/24 11/09/24 tramadol 50 mg tablet mg PO 11/09/24 11/09/24 Previous Rx's ?Medication ?Instructions ?Recorded phenazopyridine 100 mg tablet 100 mg PO QPC PRN pain 6 doses #6 03/15/24 tabs hydrochlorothiazide 25 mg tablet 25 mg PO DAILY #30 tabs 05/28/24 azithromycin 250 mg tablet 250 mg PO QDAY #6 tabs 11/09/24 (Zithromax Z-Rene) fluticasone propionate 50 1 spray intranasal DAILY #16 grams 11/09/24 mcg/actuation nasal spray,suspension (Flonase Allergy Relief) rivaroxaban 15 mg (42)-20 mg (9) See Rx Instructions PO .COMPLEX 01/10/25 tablets in a starter pack #51 tabs Allergies Allergy/AdvReac Type Severity Reaction Status Date / Time Penicillins (PENICILLINS) Allergy Unknown Verified 11/09/24 08:13 furosemide (From Lasix) Allergy Verified 11/09/24 08:13 losartan Allergy Verified 11/09/24 08:13 morphine Allergy Verified 11/09/24 08:13 Sulfa (Sulfonamide Allergy Verified 11/09/24 08:13 Antibiotics) [facility] <Bhavna Zackary, DO - Last Filed: 01/10/25 01:14> [facility] Disclaimer: The information contained in this section may have been updated after the patient was seen, as this information can be updated by other users. Medical History Sinusitis Other pulmonary embolism without acute cor pulmonale Chest pain Palpitations Dyspnea Pre-diabetes Pulmonary embolism Hyperlipidemia HTN (hypertension) Pelvic abscess Perforation bowel Dizziness Surgical History History of tonsillectomy History of cholecystectomy History of appendectomy History of knee surgery No significant past surgical history Family History Other No significant family history Social History Smoking Status: Never smoker second hand exposure: No alcohol intake: never substance use type: denies use current occupational status: other Travel in the last 8 weeks?: None household members: family housing: house Have you lived/traveled outside US in past 30 days?: No Contact w/someone who lives/traveled outside US past 30 days?: No Exposure to someone with infectious disease in past 14 days?: No Do you have a fever (greater than 100.4 F or 38 C)?: No Have you tested positive for COVID-19?: No Exposed to someone with COVID-19 in past 14 days?: No Do you have a sore throat?: No Do you have a cough?: No Do you have any weakness?: No Do you have any diarrhea?: No Are you experiencing any unusual bleeding?: No Do you have any muscle aches/pain?: No Do you have any abdominal pain?: No Are you experiencing loss of taste or smell?: No Other Medical History Have you received the Flu Vaccine for this season: No Have you received the Pneumonia Vaccine: No <Bhavna Raymundo, - Last Filed: 01/10/25 01:14> ROS Obtained: Yes All systems reviewed & no additional complaints except as documented and Yes Systems reviewed as appropriate & no additional complaints except as documented Physical Exam <Bhavna Raymundo DO - Last Filed: 01/10/25 01:14> General General appearance: alert and in no apparent distress Head Head exam: atraumatic, normocephalic and normal inspection Eye Eye exam: Present normal appearance, PERRL and EOMI; Absent scleral icterus ENT ENT exam: Present normal exam and normal external ear exam Neck Neck exam: Present normal inspection and full ROM Chest Chest inspection: Present normal inspection and symmetric chest wall rise Respiratory Respiratory exam: Present normal lung sounds bilaterally; Absent respiratory distress or wheezes Cardiovascular Cardiovascular exam: Present tachycardia, irregular rhythm and normal heart sounds Abdominal Exam Abdominal exam: Present soft and distention; Absent tenderness, guarding or rebound Extremities Exam Extremities exam: Present normal inspection and full ROM Back Exam Back exam: Present normal inspection and full ROM Neurological Exam Neurological exam: Present alert, oriented X3 and normal gait; Absent motor sensory deficit Psychiatric Psychiatric exam: Present normal affect and normal mood Skin Skin exam: Present warm and dry Medical Decision Making <Bhavna Raymundo, - Last Filed: 01/10/25 01:14> Medical Records Medical records reviewed: Yes I reviewed the patient's medical records. Screening: Per USPSTF and CDC recommendations, given the prevalence of disease in our region, it is our hospital?s policy to screen for HIV and viral Hepatitis for all patients aged 18 and over and those with ongoing risk factors. Giovanni Inquiry Pt receiving controlled substance: No Vital Signs: 01/09/25 22:20 01/09/25 22:40 01/09/25 22:42 Temperature 98.1 F Temperature Source Oral Pulse Rate 143 H 99 H Pulse Rate [Radial] 144 H Respiratory Rate 20 Blood Pressure 178/120 H 192/108 H Blood Pressure [Right Arm] 191/130 H Blood Pressure Mean [Right Arm] 150 Blood Pressure Position Sitting Blood Pressure Position [Right Arm] Sitting 02 Sat by Pulse Oximetry 98 Oxygen Delivery Method Room Air Oxygen Flow Rate (LPM) 01/09/25 22:42 01/09/25 22:44 01/09/25 22:44 Temperature Temperature Source Pulse Rate 89 92 H 87 Pulse Rate [Radial] Respiratory Rate 20 21 Blood Pressure 192/108 H 159/104 H 159/104 H Blood Pressure [Right Arm] Blood Pressure Mean [Right Arm] Blood Pressure Position Sitting Blood Pressure Position [Right Arm] 02 Sat by Pulse Oximetry 95 94 L Oxygen Delivery Method Oxygen Flow Rate (LPM) 01/09/25 22:50 01/09/25 23:11 01/09/25 23:21 Temperature Temperature Source Pulse Rate 77 77 75 Pulse Rate [Radial] Respiratory Rate 19 13 22 Blood Pressure 158/109 H 142/93 H 118/70 Blood Pressure [Right Arm] Blood Pressure Mean [Right Arm] Blood Pressure Position Blood Pressure Position [Right Arm] 02 Sat by Pulse Oximetry 94 L 94 L 96 Oxygen Delivery Method Oxygen Flow Rate (LPM) 01/09/25 23:30 01/09/25 23:40 01/09/25 23:50 Temperature Temperature Source Pulse Rate 82 81 77 Pulse Rate [Radial] Respiratory Rate 19 25 H 12 Blood Pressure 120/75 133/87 140/84 Blood Pressure [Right Arm] Blood Pressure Mean [Right Arm] Blood Pressure Position Blood Pressure Position [Right Arm] 02 Sat by Pulse Oximetry 96 96 97 Oxygen Delivery Method Oxygen Flow Rate (LPM) 01/10/25 00:00 01/10/25 00:03 01/10/25 00:06 Temperature Temperature Source Pulse Rate 80 74 65 Pulse Rate [Radial] Respiratory Rate 16 14 19 Blood Pressure 140/92 H 118/77 106/69 L Blood Pressure [Right Arm] Blood Pressure Mean [Right Arm] Blood Pressure Position Blood Pressure Position [Right Arm] 02 Sat by Pulse Oximetry 96 96 94 L Oxygen Delivery Method Oxygen Flow Rate (LPM) 01/10/25 00:10 01/10/25 00:20 01/10/25 00:32 Temperature Temperature Source Pulse Rate 60 55 L 52 L Pulse Rate [Radial] Respiratory Rate 14 18 16 Blood Pressure 112/70 126/80 151/88 H Blood Pressure [Right Arm] Blood Pressure Mean [Right Arm] Blood Pressure Position Blood Pressure Position [Right Arm] 02 Sat by Pulse Oximetry 95 97 98 Oxygen Delivery Method Oxygen Flow Rate (LPM) 01/10/25 01:36 01/10/25 01:38 01/10/25 01:47 Temperature Temperature Source Pulse Rate Pulse Rate [Radial] 73 57 L 55 L Respiratory Rate 20 20 18 Blood Pressure Blood Pressure [Right Arm] 145/101 H 157/81 H 136/76 Blood Pressure Mean [Right Arm] 115 106 96 Blood Pressure Position Blood Pressure Position [Right Arm] Supine Supine Supine 02 Sat by Pulse Oximetry 99 95 97 Oxygen Delivery Method Nasal Cannula Nasal Cannula Nasal Cannula Oxygen Flow Rate (LPM) 2 2 2 01/10/25 01:50 Temperature Temperature Source Pulse Rate Pulse Rate [Radial] 54 L Respiratory Rate 22 Blood Pressure Blood Pressure [Right Arm] 133/76 Blood Pressure Mean [Right Arm] 95 Blood Pressure Position Blood Pressure Position [Right Arm] Supine 02 Sat by Pulse Oximetry 98 Oxygen Delivery Method Nasal Cannula Oxygen Flow Rate (LPM) 2 Lab Data Lab results reviewed: Yes I reviewed the patient's lab results. Lab Results 01/09/25 22:24: WBC 9.7, RBC 5.06, Hgb 15.1, Hct 45.4, MCV 89.7, MCH 29.8, MCHC 33.3, RDW 13.7, Plt Count 256, MPV 10.2, Neut % (Auto) 52.8, Lymph % (Auto) 36.0, Garrett % (Auto) 7.9, Eos % (Auto) 2.3, Baso % (Auto) 0.7, Neut # (Auto) 5.1, Lymph # (Auto) 3.5, Garrett # (Auto) 0.8, Eos # (Auto) 0.2, Baso # (Auto) 0.1, Sodium 137, Potassium 3.8, Chloride 98, Carbon Dioxide 32 H, Anion Gap 10.8, BUN 34 H, Creatinine 1.00, Estimated Creat Clear 79, Estimated GFR 54 L, Est GFR ( Amer) 66, Glucose 115 H, Calcium 9.4, Magnesium 2.0, Total Bilirubin 0.4, AST 33, ALT 12, Alkaline Phosphatase 148 H, Troponin I < 0.01, NT-Pro-B Natriuret Pep 23.4, Total Protein 8.0, Albumin 4.4, Globulin 3.6 H, Albumin/Globulin Ratio 1.2 01/10/25 01:21: Troponin I 0.02 01/09/25 22:24 01/09/25 22:24 Orders (Tests/Meds): ED MEDICATIONS Generic Name Dose Route Start Last Admin Trade Name Freq PRN Reason Stop Dose Admin Metoprolol Tartrate 5 mg 01/09/25 22:33 01/09/25 22:36 Metoprolol Tartrate 5mg/5ml Vial IV 02/08/25 22:32 5 mg ONCE PRN Administration Tachyarrhythmias Discontinued Medications Generic Name Dose Route Start Last Admin Trade Name Freq PRN Reason Stop Dose Admin Aspirin 325 mg 01/09/25 22:32 01/09/25 22:36 Aspirin 325mg Tablet PO 01/09/25 22:33 325 mg ONCE ONE Administration Diltiazem HCl 20 mg 01/09/25 23:51 01/09/25 23:58 Diltiazem 25mg/5ml Vial IV 01/09/25 23:52 20 mg ONCE ONE Administration Etomidate 10 mg 01/10/25 01:22 01/10/25 01:36 Etomidate 40mg/20ml Vial IV 01/10/25 01:23 10 mg ONCE ONE Administration Magnesium Sulfate 2 gm in 50 mls @ 50 mls/hr 01/09/25 22:32 01/09/25 23:37 Magnesium Sulfate 2gm/50ml Premix IV 01/09/25 23:31 Infused ONCE ONE Infusion Lactated Ringer's 1,000 mls @ 999 mls/hr 01/09/25 23:45 01/10/25 00:57 Lactated Ringer's 1000 Ml Bag IV 01/10/25 00:45 Infused .Q1H1M SCOOBY Infusion Iopamidol 80 ml 01/09/25 23:13 01/09/25 23:14 Iopamidol-370 (76%);100ml Bottle IV 01/09/25 23:14 80 ml ONCE ONE Administration Rivaroxaban 20 mg 01/09/25 23:58 01/10/25 00:12 Rivaroxaban 10mg Tablet PO 01/09/25 23:59 20 mg ONCE ONE Administration Sodium Chloride 50 ml 01/09/25 23:13 01/09/25 23:14 0.9 % Sodium Chloride 50 Ml Vial IV 01/09/25 23:14 50 ml ONCE ONE Administration Sodium Chloride 10 ml 01/09/25 23:13 01/09/25 23:14 Sodium Chloride 0.9% 10ml Syr (Rad Only) IV 01/09/25 23:14 10 ml ONCE ONE Administration ORDERS Category Date Time Status CT angio chest PE protocol Stat Cat Scan 01/09/25 22:32 Completed CXR --portable [XR chest portable] Stat Exams 01/09/25 22:31 Completed BNP [NT Pro Brain Natriuretic Pep.] Stat Lab 01/09/25 22:24 Completed CBC w/Auto Diff [Complete Blood Count Auto Diff] Stat Lab 01/09/25 22:24 Completed CMP [Comprehensive Metabolic Panel] Stat Lab 01/09/25 22:24 Completed MAG [Magnesium] Stat Lab 01/09/25 22:24 Completed Trop I [Troponin I] Stat Lab 01/09/25 22:24 Completed Troponin I Q3H Lab 01/10/25 01:21 Completed Troponin I Q3H Lab 01/10/25 04:45 Ordered Medical Decision Narrative: Is a 74-year-old female with a previous history of pulmonary embolisms that was provoked not currently on anticoagulation and history of hypertension who presented to the emergency department with palpitations, chest pain as well as jaw pain. On arrival, patient was tachycardic appeared to be in an irregular rhythm but was hemodynamically stable vital signs were otherwise unremarkable. Differential includes but not limited to: Acute onset A-fib, heart failure, ACS/NH, pneumonia, electrolyte abnormalities, pulmonary embolism, amongst others. On arrival, patient appeared tachycardic either acute A-fib with RVR or a flutter with a 2-1 rhythm. Initially rhythm strip looks like a flutter with a 2-1 however on telemetry it appeared to be A-fib with RVR. Patient was hemodynamically stable therefore patient was given a single dose of metoprolol. Patient appeared to be in A-fib heart rate improved to 88. Patient was given IV fluids as well as IV magnesium. Patient's labs were reviewed and interpreted by myself: CBC showed no leukocytosis, hemoglobin was stable. CMP was unremarkable. Initial troponin was less than 0.01. Show EKG was reviewed and interpreted by myself and showed a flutter versus A-fib with a rate of 145. Second EKG was reviewed and interpreted by myself and showed A-fib with a rate of [address] or T wave changes concerning for ischemia. CT PE was reviewed and interpreted by myself and showed no acute thoracic pathology. Chest x-ray was reviewed and interpreted by myself and showed no focal consolidation, pneumothorax, pleural effusion or other acute cardiopulmonary process. Patient was signed out to the oncoming provider pending second troponin, final disposition. <James Magana MD - Last Filed: 01/10/25 02:03> Vital Signs: 01/09/25 22:20 01/09/25 22:40 01/09/25 22:42 Temperature 98.1 F Temperature Source Oral Pulse Rate 143 H 99 H Pulse Rate [Radial] 144 H Respiratory Rate 20 Blood Pressure 178/120 H 192/108 H Blood Pressure [Right Arm] 191/130 H Blood Pressure Mean [Right Arm] 150 Blood Pressure Position Sitting Blood Pressure Position [Right Arm] Sitting 02 Sat by Pulse Oximetry 98 Oxygen Delivery Method Room Air Oxygen Flow Rate (LPM) 01/09/25 22:42 01/09/25 22:44 01/09/25 22:44 Temperature Temperature Source Pulse Rate 89 92 H 87 Pulse Rate [Radial] Respiratory Rate 20 21 Blood Pressure 192/108 H 159/104 H 159/104 H Blood Pressure [Right Arm] Blood Pressure Mean [Right Arm] Blood Pressure Position Sitting Blood Pressure Position [Right Arm] 02 Sat by Pulse Oximetry 95 94 L Oxygen Delivery Method Oxygen Flow Rate (LPM) 01/09/25 22:50 01/09/25 23:11 01/09/25 23:21 Temperature Temperature Source Pulse Rate 77 77 75 Pulse Rate [Radial] Respiratory Rate 19 13 22 Blood Pressure 158/109 H 142/93 H 118/70 Blood Pressure [Right Arm] Blood Pressure Mean [Right Arm] Blood Pressure Position Blood Pressure Position [Right Arm] 02 Sat by Pulse Oximetry 94 L 94 L 96 Oxygen Delivery Method Oxygen Flow Rate (LPM) 01/09/25 23:30 01/09/25 23:40 01/09/25 23:50 Temperature Temperature Source Pulse Rate 82 81 77 Pulse Rate [Radial] Respiratory Rate 19 25 H 12 Blood Pressure 120/75 133/87 140/84 Blood Pressure [Right Arm] Blood Pressure Mean [Right Arm] Blood Pressure Position Blood Pressure Position [Right Arm] 02 Sat by Pulse Oximetry 96 96 97 Oxygen Delivery Method Oxygen Flow Rate (LPM) 01/10/25 00:00 01/10/25 00:03 01/10/25 00:06 Temperature Temperature Source Pulse Rate 80 74 65 Pulse Rate [Radial] Respiratory Rate 16 14 19 Blood Pressure 140/92 H 118/77 106/69 L Blood Pressure [Right Arm] Blood Pressure Mean [Right Arm] Blood Pressure Position Blood Pressure Position [Right Arm] 02 Sat by Pulse Oximetry 96 96 94 L Oxygen Delivery Method Oxygen Flow Rate (LPM) 01/10/25 00:10 01/10/25 00:20 01/10/25 00:32 Temperature Temperature Source Pulse Rate 60 55 L 52 L Pulse Rate [Radial] Respiratory Rate 14 18 16 Blood Pressure 112/70 126/80 151/88 H Blood Pressure [Right Arm] Blood Pressure Mean [Right Arm] Blood Pressure Position Blood Pressure Position [Right Arm] 02 Sat by Pulse Oximetry 95 97 98 Oxygen Delivery Method Oxygen Flow Rate (LPM) 01/10/25 01:36 01/10/25 01:38 01/10/25 01:47 Temperature Temperature Source Pulse Rate Pulse Rate [Radial] 73 57 L 55 L Respiratory Rate 20 20 18 Blood Pressure Blood Pressure [Right Arm] 145/101 H 157/81 H 136/76 Blood Pressure Mean [Right Arm] 115 106 96 Blood Pressure Position Blood Pressure Position [Right Arm] Supine Supine Supine 02 Sat by Pulse Oximetry 99 95 97 Oxygen Delivery Method Nasal Cannula Nasal Cannula Nasal Cannula Oxygen Flow Rate (LPM) 2 2 2 01/10/25 01:50 Temperature Temperature Source Pulse Rate Pulse Rate [Radial] 54 L Respiratory Rate 22 Blood Pressure Blood Pressure [Right Arm] 133/76 Blood Pressure Mean [Right Arm] 95 Blood Pressure Position Blood Pressure Position [Right Arm] Supine 02 Sat by Pulse Oximetry 98 Oxygen Delivery Method Nasal Cannula Oxygen Flow Rate (LPM) 2 Lab Data Lab Results 01/09/25 22:24: WBC 9.7, RBC 5.06, Hgb 15.1, Hct 45.4, MCV 89.7, MCH 29.8, MCHC 33.3, RDW 13.7, Plt Count 256, MPV 10.2, Neut % (Auto) 52.8, Lymph % (Auto) 36.0, Garrett % (Auto) 7.9, Eos % (Auto) 2.3, Baso % (Auto) 0.7, Neut # (Auto) 5.1, Lymph # (Auto) 3.5, Garrett # (Auto) 0.8, Eos # (Auto) 0.2, Baso # (Auto) 0.1, Sodium 137, Potassium 3.8, Chloride 98, Carbon Dioxide 32 H, Anion Gap 10.8, BUN 34 H, Creatinine 1.00, Estimated Creat Clear 79, Estimated GFR 54 L, Est GFR ( Amer) 66, Glucose 115 H, Calcium 9.4, Magnesium 2.0, Total Bilirubin 0.4, AST 33, ALT 12, Alkaline Phosphatase 148 H, Troponin I < 0.01, NT-Pro-B Natriuret Pep 23.4, Total Protein 8.0, Albumin 4.4, Globulin 3.6 H, Albumin/Globulin Ratio 1.2 01/10/25 01:21: Troponin I 0.02 Orders (Tests/Meds): ED MEDICATIONS Generic Name Dose Route Start Last Admin Trade Name Freq PRN Reason Stop Dose Admin Metoprolol Tartrate 5 mg 01/09/25 22:33 01/09/25 22:36 Metoprolol Tartrate 5mg/5ml Vial IV 02/08/25 22:32 5 mg ONCE PRN Administration Tachyarrhythmias Discontinued Medications Generic Name Dose Route Start Last Admin Trade Name Freq PRN Reason Stop Dose Admin Aspirin 325 mg 01/09/25 22:32 01/09/25 22:36 Aspirin 325mg Tablet PO 01/09/25 22:33 325 mg ONCE ONE Administration Diltiazem HCl 20 mg 01/09/25 23:51 01/09/25 23:58 Diltiazem 25mg/5ml Vial IV 01/09/25 23:52 20 mg ONCE ONE Administration Etomidate 10 mg 01/10/25 01:22 01/10/25 01:36 Etomidate 40mg/20ml Vial IV 01/10/25 01:23 10 mg ONCE ONE Administration Magnesium Sulfate 2 gm in 50 mls @ 50 mls/hr 01/09/25 22:32 01/09/25 23:37 Magnesium Sulfate 2gm/50ml Premix IV 01/09/25 23:31 Infused ONCE ONE Infusion Lactated Ringer's 1,000 mls @ 999 mls/hr 01/09/25 23:45 01/10/25 00:57 Lactated Ringer's 1000 Ml Bag IV 01/10/25 00:45 Infused .Q1H1M SCOOBY Infusion Iopamidol 80 ml 01/09/25 23:13 01/09/25 23:14 Iopamidol-370 (76%);100ml Bottle IV 01/09/25 23:14 80 ml ONCE ONE Administration Rivaroxaban 20 mg 01/09/25 23:58 01/10/25 00:12 Rivaroxaban 10mg Tablet PO 01/09/25 23:59 20 mg ONCE ONE Administration Sodium Chloride 50 ml 01/09/25 23:13 01/09/25 23:14 0.9 % Sodium Chloride 50 Ml Vial IV 01/09/25 23:14 50 ml ONCE ONE Administration Sodium Chloride 10 ml 01/09/25 23:13 01/09/25 23:14 Sodium Chloride 0.9% 10ml Syr (Rad Only) IV 01/09/25 23:14 10 ml ONCE ONE Administration ORDERS Category Date Time Status CT angio chest PE protocol Stat Cat Scan 01/09/25 22:32 Completed CXR --portable [XR chest portable] Stat Exams 01/09/25 22:31 Completed BNP [NT Pro Brain Natriuretic Pep.] Stat Lab 01/09/25 22:24 Completed CBC w/Auto Diff [Complete Blood Count Auto Diff] Stat Lab 01/09/25 22:24 Completed CMP [Comprehensive Metabolic Panel] Stat Lab 01/09/25 22:24 Completed MAG [Magnesium] Stat Lab 01/09/25 22:24 Completed Trop I [Troponin I] Stat Lab 01/09/25 22:24 Completed Troponin I Q3H Lab 01/10/25 01:21 Completed Troponin I Q3H Lab 01/10/25 04:45 Ordered ECG Data Tracing #1: I reviewed this ECG and interpreted as documented below: Sinus bradycardia, ventricular rate 55, no concerning ST or T wave changes, no evidence of arrhythmia ECG initial impression date: 01/10/25 ECG initial impression time: 01:39 HEART Score History (anamnesis): Slightly suspicious ECG: Non-specific disturbance Age: >65 years Risk factors: 1-2 risk factors Troponin: </= normal limit HEART Score: 4 Medical Decision Narrative: Is a 74-year-old female with a previous history of pulmonary embolisms that was provoked not currently on anticoagulation and history of hypertension who presented to the emergency department with palpitations, chest pain as well as jaw pain. On arrival, patient was tachycardic appeared to be in an irregular rhythm but was hemodynamically stable vital signs were otherwise unremarkable. Differential includes but not limited to: Acute onset A-fib, heart failure, ACS/NH, pneumonia, electrolyte abnormalities, pulmonary embolism, amongst others. On arrival, patient appeared tachycardic either acute A-fib with RVR or a flutter with a 2-1 rhythm. Initially rhythm strip looks like a flutter with a 2-1 however on telemetry it appeared to be A-fib with RVR. Patient was hemodynamically stable therefore patient was given a single dose of metoprolol. Patient appeared to be in A-fib heart rate improved to 88. Patient was given IV fluids as well as IV magnesium. Patient's labs were reviewed and interpreted by myself: CBC showed no leukocytosis, hemoglobin was stable. CMP was unremarkable. Initial troponin was less than 0.01. Show EKG was reviewed and interpreted by myself and showed a flutter versus A-fib with a rate of 145. Second EKG was reviewed and interpreted by myself and showed A-fib with a rate of [address] or T wave changes concerning for ischemia. CT PE was reviewed and interpreted by myself and showed no acute thoracic pathology. Chest x-ray was reviewed and interpreted by myself and showed no focal consolidation, pneumothorax, pleural effusion or other acute cardiopulmonary process. Patient was signed out to the oncoming provider pending second troponin, final disposition. Izzy SCHULTZ: I assumed care of the patient at the time of handoff from the prior provider. Patient was given a dose of IV diltiazem without conversion to sinus rhythm. I had an extensive discussion with patient regarding the options moving forward including rate control and rhythm control strategies, rapid cardioversion versus delayed cardioversion. Patient wishes to be cardioverted as soon as possible. She was initiated on Xarelto. The second troponin was obtained. Patient was then procedurally sedated with etomidate and was successfully converted to sinus rhythm via synchronized cardioversion at 120 J. Patient recovered from sedation, second opponent returned undetectably low. Given this patient was deemed appropriate discharge outpatient management. She was discharged prescription for Xarelto for period of 1 month and encouraged follow-up with PCP/cardiology for further management. Procedures <James Magana MD - Last Filed: 01/10/25 02:03> Procedural Sedation A heart and lung assessment was performed on this patient at: 01:00 Mallampati Score:: Class II Indication: other (Cardioversion) ASA Class: II IV Etomidate dose (mg): 10 Patient Tolerated Procedure: well and no complications Miscellaneous Procedure Procedure Performed: Procedure: Synchronized cardioversion Indication: New onset A-fib Description: Procedural sedation with etomidate was performed. Synchronized cardioversion at 120 J was successfully performed with conversion from A-fib to normal sinus rhythm. No complications. Patient recovered well from sedation. Critical Care <Bhavna Raymundo DO - Last Filed: 01/10/25 01:14> Critical Care Time Critical Care Time: No <James Magana MD - Last Filed: 01/10/25 02:03> Critical Care Time Critical Care Time: Yes Attestation: On 01/09/25, the high probability of a clinically significant, sudden or life threatening deterioration of the following system(s) required my full and direct attention, intervention and personal management. The time I documented below is in addition to time spent performing reported procedures but includes the following listed in this critical care notation. Total Time Total Critical Care Time: 40
[2025-01-10] MEDS: ETOMIDATE 40MG/20ML VIAL 10 MG IV (01:36)
[2025-01-10 01:48] LABS: Troponin I 0.02 ng/ml (0.00-0.034)
== END 2025-01-10 02:07 | disposition home or self-care (01) ==
PROVIDERS: Student in an Organized Health Care Education/Training Program; Emergency Provider Emergency Medicine; PCP Nurse Practitioner Family
DX: I48.91 Unspecified atrial fibrillation (principal); R07.9 Chest pain, unspecified; R68.84 Jaw pain; R51.9 Headache, unspecified; I10 Essential (primary) hypertension; Z86.711 Personal history of pulmonary embolism
CPT/HCPCS: 71045; 71275; 80053; 83735; 83880; 84484; 85025; 92960; 93005; 96361; 96365; 96375; 99285; J3475; J7120; Q9967

== ENCOUNTER 2025-01-13 15:43 | Outpatient (CLI) | payer MEDICARE, SELFPAY ==
--- OUTSIDE RECORDS SUMMARY | 2025-01-13 16:10 | XMS_ITS | Continuity of Care Document ---
Author Organization [facility], [facility] [address] [place] [address] Care Team Providers Care Director Of Intelligence Name Role Phone HIEU CAROLINA Referring Provider [...] Recorded Time History of major abdominal surgery 561625083 Active 2023 HIEU BEACH MD [address] [place] [address], [address], [facility] 4 16:51:37 Type 2 diabetes mellitus without complicatio n [id number] [place] 20[place] [address] [place] [address], [address], [facility] 4 16:51:38 Osteoarthri tis of left knee joint [id number] 09 Active 2023 HIEU BEACH MD [address] [place] [address], [address], [facility] 4 16:51:39 Problem Notes None recorded. Procedures Surgical History Date Name Laterality Status Provider Name and Address Organization Details Recorded Time 12/04/19 25 Injection - Joint/Bursa, Major completed SVETLANA BEAN PA-C [address] [place], [address], [facility] 12/04/2024 10:55:10 07/06/19 25 Injection - Joint/Bursa, Parvez completed SVETLANA BEAN PA-C [address] [place], [address], [facility] 07/05/2024 16:43:35 09/27/19 24 Injection - Joint/Bursa, Major completed LAKHWINDER SHARMA PA-C [address] [place], [address], [facility] 09/27/2023 10:44:43 07/19/19 24 total replacement of left knee joint completed Magi Niño [facility] 08/09/2023 11:29:28 07/13/19 24 PCM Visit completed Sin Trinidad [facility] 07/17/2023 10:52:34 04/26/19 24 Injection - Joint/Bursa, Major completed SVETLANA BEAN PA-C [address] [place], [address], [facility] 04/26/2023 10:10:20 12/13/19 23 Injection - Joint/Bursa, Major completed SVETLANA BEAN PA-C [address] [place], [address], [facility] 12/12/2022 13:44:08 07/08/19 23 Injection - Joint/Bursa, Major completed SVETLANA BEAN PA-C [address] [place], [address], [facility] 07/26/2022 14:42:55 08/19/19 22 Injection - Joint/Bursa, Major completed KEVIN CARVALHO MD [address] [place], [address], [facility] 08/18/2021 09:11:40 laminectomy completed Magi Niño [facility] 08/18/2021 08:44:04 cholecystectomy completed Magi Niño [facility] 08/18/2021 08:44:11 Unlisted px meckenya's dvrtclm completed Magi Niño [facility] 08/18/2021 08:44:33 Imaging Results None recorded. Procedure Notes None recorded. Medical Equipment None Reported. Allergies Allergen ID Allergen Name Allergen Category Reaction Reaction Severity Criticality Documentation Date Start Date Code Code System Note Provider Name and Address Organization Details Recorded Time 099060 Product containin g penicilli n (product) medicatio n Not available Not available Not available 08/18/2021 09373 8001 SNOMED Magi [facility] 2 08:40:20 [id number] Lasix medicatio n Not available Not available Not available 08/18/2021 1 RxNorm Magi [facility] 2 08:40:24 112795 losartan medicatio n Not available Not available Not available 08/18/2021 12895 RxNorm Magi [facility] 2 08:40:30 Medications Name Sig Start [...] Tobacco Smoking Status Never Smoker Magi Niño [facility] 08/18/2021 08:43:35 What Is Your Level Of Caffeine Consumption? Moderate [email or web address] Information not available 08/18/2021 What Was The Date Of Your Most Recent Tobacco Screening? 08/09/2023 [email or web address] Information not available 08/09/2023 What Is Your Relationship Status? [email or web address] Information not available 08/18/2021 Has Tobacco Cessation Counseling Been Provided? No [email or web address] Information not available 08/18/2021 Sex: Female Functional Status Question Answer Note LastModified by Organizat ion Details LastModified Time Do you use any illicit or recreational drugs? No [email or web address] Information not available 08/18/2021 Do you or have you ever used any other forms of tobacco or nicotine? No [email or web address] Information not available 08/18/2021 What is your level of alcohol consumption? None [email or web address] Information not available 08/18/2021 Are you currently employed? No retired [email or web address] Information not available 08/18/2021 Mental Status None recorded. Family History Relationship Description Onset Age of this Age Resolved Age Notes LastModified by Organization Details LastModified Time Father No current problems or disability [email or web address] Not available 03/2021 08:43:19 Mother No current problems or disability [email or web address] Not available 03/2021 08:43:19 Medical History Condition Response Allergies/Hayfever N Anxiety/Depression Y Gout N Other Y Thyroid Disease N Kidney Stones N Heart Conditions N Hernia N Migraines N COPD N Glaucoma N Pneumonia N Skin Problems N Immune System Disorder N Anesthesia Complications N Heart Attack ([place]) N Mental Illness N Neurological Problems N [...] ICD10 Code Diagnosis IMO Codes Diagnosis Note [id number] SVETLANA BEAN PA-C [facility] [address] [place] [address] 12/03/2024 08:35:46 12/09/2024 11:42:09 Osteoarthritis of right knee joint [id number] 42285 M17.11 [id number] Assessment : Osteoarthr itis right knee Plan: [...] (MEDICARE REPLACEMENT/ ADVANTAGE - PPO) Mohinder Yin [id number] Mohinder Yin Notes Date Note Type Note [...] at this time. SVETLANA BEAN PA-C [address] [place], [address], [facility] 12/04/2024 10:55:30 OBGyn Episode No OBEpisode recorded.
--- OUTSIDE RECORDS SUMMARY | 2025-01-13 16:10 | XMS_ITS | Data Portability ---
Author Organization [facility] Address [address] [place] [address] Care Team Providers Care Rn Or Lvn Name Role Phone HIEU CAROLINA Referring Provider ROD YANEZ Primary Care Provider KEVIN CARVALHO Orthopedic Surgeon [phone] Assessment No assessment recorded. Plan of Treatment Reminders Order Date Submit Date Provider Last Modified By Organization Details Last Modified Time Details Appointments None recorded. Lab None recorded. Referral physical therapist referral 2023 024 [facility], [address] [place] [address] , [place], [address], 4 14:15:29 Procedures None recorded. Surgeries None [...] knee, 4 or more view [place] [facility] [place] [address] [place] [address] Patien t Name: JERRY Baez CHRISTEN ER [...] Sharmin low MD on 024 10:30 AM [facility] [place] [address], [place], [address], 06/30/2023 12:43:19 06/30/19 24 06/30/2023 XR, joint , multi ple, 1 view [facility] [place] [address] [place] [address] Patien t Name: JERRY VELÁSQUEZ ER Patipadmini [...] Sharmin low MD on 12:35 PM [email or web address] [facility] [place] [address] , [place], [address], 07/01/2023 20:48:30 08/09/19 24 08/09/2023 XR, knee, 3 view [facility] [address] [place] [address] Patipadmini t Name: JERRY Muniz t : [...] Sharmin low MD on 11:55 AM [email or web address] [facility] [address] , [place], [address], 08/09/2023 12:38:43 09/27/19 24 09/27/2023 XR, knee, 3 view [facility] [address] [place] [address] Patipadmini t Name: JERRY Muniz t : [...] Interp reted By: Sharmin low MD [facility] onical ly Signed By: Sharmin low MD on 024 10:16 AM [facility] [place] [address] , [place], [address], 09/27/2023 10:46:03 07/06/19 25 07/05/2024 XR, knee, 4 or [facility] [address] [place] [address] Patipadmini t Name: JERRY VELÁSQUEZ ER Patipadmini [...] Interp reted By: Sharmin low MD [facility] onical ly Signed By: Sharmin low MD on 025 3:36 PM [email or web address] [facility] [place] [address] , [place], [address], 07/15/2024 13:22:35 Result Notes Documentation Provider Name and Address Organization Details Recorded Time Xr, Knee, 3 View : [facility] [place] [address] [place] [address] Patient Name: EARNEST YIN Patient : 1950 [...] By: Leonardo Taylor MD THI SCHMITT PA-C [address] [place] [address], [phone], [facility] 08/09/2023 12:38:43 Xr, Knee, 3 View : [facility] [address] [place] [address] Patient Name: EARNEST YIN Patient : 1950 [...] Leonardo Taylor MD LIA SAWANT PA-C [address] [place], [address], [facility] 09/27/2023 10:46:03 Xr, Knee, 4 Or More View : [facility] [address] [place] [address] Patient Name: EARNEST YIN Patient : 1950 [...] By: Leonardo Taylor MD LANA BEAN PA-C [address] [place] [address], [address], [facility] 07/15/2024 13:22:35 Problems Name Problem SNOMED Code Status Onset Date Resolution Date Notes Provider Name and Address Organization Details Recorded Time History of major abdominal surgery 123478974 Active 2023 HIEU BEACH MD [address] [place] [address], [address], [facility] 4 16:51:37 Type 2 diabetes mellitus without complicatio n 117113163 Active 2023 HIEU BEACH MD [address] [place] [address], [address], [facility] 4 16:51:38 Osteoarthri tis of left knee joint 0344028826637 09 Active 2023 HIEU BEACH MD [address] [place] [address], [address], [facility] 4 16:51:39 Problem Notes None recorded. Procedures Surgical History Date Name Laterality Status Provider Name and Address Organization Details Recorded Time 12/04/19 25 Injection - Joint/Bursa, Parvez completed SVETLANA BEAN PA-C [address] [place] [address], [address], [facility] 12/04/2024 10:55:10 07/06/19 25 Injection - Joint/Bursa, Parvez BEAN PA-C [address] [place] [address], [place], [address], [facility] 07/05/2024 16:43:35 09/27/19 24 Injection - Joint/Bursa, Major completed CAMELIA SAWANT PA-C [address] [place], [address], [facility] 09/27/2023 10:44:43 07/19/19 24 total replacement of left knee joint completed Magi Niño [facility] 08/09/2023 11:29:28 07/13/19 24 PCM Visit completed Sin Trinidad [facility] 07/17/2023 10:52:34 04/26/19 24 Injection - Joint/Bursa, Major completed SVETLANA BEAN PA-C [address] [place], [address], [facility] 04/26/2023 10:10:20 12/13/19 23 Injection - Joint/Bursa, Major completed SVETLANA BEAN PA-C [address] [place], [address], [facility] 12/12/2022 13:44:08 07/08/19 23 Injection - Joint/Bursa, Major completed SVETLANA BEAN PA-C [address] [place], [address], [facility] 07/26/2022 14:42:55 08/19/19 22 Injection - Joint/Bursa, Major completed KEVIN CARVALHO MD [address] [place], [address], [facility] 08/18/2021 09:11:40 laminectomy completed Magi Niño [facility] 08/18/2021 08:44:04 cholecystectomy completed Magieula Niño [facility] 08/18/2021 08:44:11 Unlisted ariana pagan's [email or web address] completed Magi Salinas [facility] 08/18/2021 08:44:33 Imaging Results None recorded. Procedure Notes None recorded. Medical Equipment None Reported. Allergies Allergen ID Allergen Name Allergen Category Reaction Reaction Severity Criticality Documentation Date Start Date Code Code System Note Provider Name and Address Organization Details Recorded Time 767731 Product containin g penicilli n (product) medicatio n Not available Not available Not available 08/18/2021 34003 8001 SNOMED Magi Niño [facility] 2 08:40:20 429484 Lasix medicatio n Not available Not available Not available 08/18/2021 03665 1 RxNorm Magi Niño [facility] 2 08:40:24 786844 losartan medicatio n Not available Not available Not available 08/18/2021 68416 RxNorm Magi Niño [facility] 2 08:40:30 Medications Name Sig [...] Updated DateTime 07/05/2024 170.18 cm 34.5 kg/m2 09157.32 g 5 Gela Mockdianna [facility] 07/05/2024 14:23:45 Date Recorded Body height Body mass index (BMI) Body weight Pain severity - 0-10 verbal numeric rating [Score] - Reported Provider Name and Address Organization Details Last Updated DateTime 08/09/2023 170.18 cm 38.4 kg/m2 311642.13 g 1 Magi Niño [facility] 08/09/2023 11:45:12 Date Recorded Body height Body mass index (BMI) Body weight Provider Name and Address Organization Details Last Updated DateTime 09/27/2023 170.18 cm 38.4 kg/m2 049619.13 g Kevin Sierra Ramon [facility] 09/27/2023 10:26:53 Social History Question Answer Notes LastModified by [employer] Details LastModified Time Tobacco Smoking Status Never Smoker Magi Niño [facility] 08/18/2021 08:43:35 What Is Your Level Of Caffeine Consumption? Moderate [email or web address] Information not available 08/18/2021 What Was The Date Of Your Most Recent Tobacco Screening? 08/09/2023 Information not available 08/09/2023 What Is Your Relationship Status? [email or web address] Information not available 08/18/2021 Has Tobacco Cessation Counseling Been Provided? No [email or web address] Information not available 08/18/2021 Sex: Female Functional Status Question Answer Note LastModified by Organizat ion Details LastModified Time Do you use any illicit or recreational drugs? No [email or web address] Information not available 08/18/2021 Do you or have you ever used any other forms of tobacco or nicotine? No [email or web address] Information not available 08/18/2021 What is your level of alcohol consumption? None Information not available 08/18/2021 Are you currently employed? No retired [email or web address] Information not available 08/18/2021 Mental Status None recorded. Family History Relationship Description Onset Age of this Age Resolved Age Notes LastModified by Organization Details LastModified Time Father No current problems or disability [email or web address] Not available 03/2021 08:43:19 Mother No current problems or disability [email or web address] Not available 03/2021 08:43:19 Medical History Condition Response Allergies/Hayfever N Other Y Gout N Anxiety/Depression Y Thyroid Disease N Kidney Stones N Heart Conditions N Hernia N Migraines N Glaucoma N COPD N Pneumonia N Skin Problems N Immune System Disorder N Anesthesia Complications N Heart Attack ([place]) N Mental Illness N Neurological Problems N Diabetes Y Rheumatic Fever N Bleeding Disorder N Seizures/Epilepsy N Arthritis Y Blood Clot N Tuberculosis N Genetic Disorder N AIDS/HIV N Cancer N Stroke N Asthma N Blood Thinners N Sleep Apnea N Alcohol Overuse/Alcohol Abuse N High Cholesterol Y Liver Disease N Included as Review of Systems N Hypertension Y Osteoporosis N Kidney Disease N Gynecological HistoryNo gynecological history recorded. Obstetrics History GPAL:G 0 P 0 0 0 0 Past Encounters Encounter ID Performer Location Encounter Start Date Encounter Closed Date Diagnosis/Indication Diagnosis SNOMED-CT Code Diagnosis ICD10 Code Diagnosis IMO Codes Diagnosis Note [id number] [facility] [address] 06/20/2016 22:53:34 06/20/2016 22:53:34 [id number] ABRAN WAGNER APRN CARDIOLOG Y [address] ,[address] [place] [address] 10/24/2016 11:22:00 10/25/2016 12:07:56 Palpitations 75552062 R00.2 EKG today reveals NSR, 62 QT/QTc 398/403. Palpitatio ns improved after smoking cessation. Will check TSH today as she states that has not been done in a year. No further testing recommende d. If palpitatio ns return or worsen, recommend 24 hour Holter monitor for evaluation of rate and rhythm. Pulmonary hypertension 85655719 I27.2 RVSP 40-45 per patient report. Echocardio gram in 2014 revealed RVSP of 35. Will review 2017 report when available. Recommend Echocardio gram next year for progressio n. If Echocardio gram relatively unchanged at next office visit, she can have repeat Echocardio gram every 2-3 years or sooner if concerning symptoms arise. Essential hypertension 51672393 I10 BP today 130/84; well controlled on HCTZ 25mg daily. Continue current regimen. Low sodium diet advised. Obstructiv e sleep apnea syndrome 26324127 G47.33 Noted. Is compliant with CPAP. Continued compliance advised. [id number] KEVIN CARVALHO MD [facility] [address] [place] [address] 08/18/2021 08:28:37 08/18/2021 09:37:42 Tear of medial meniscus of knee 149643813 S83.242A Assessment : Left knee medial meniscus [...] repeat injection if they are beneficial . [id number] SVETLANA BEAN PA-C [facility] [address] [place] [address] 08/23/2021 14:33:54 08/23/2021 16:35:04 Pain of left knee joint 9359672351 96817 M25.562 Assessment : Probable MCL sprain and [...] in 2 weeks for recheck with me. [id number] SVETLANA BEAN PA-C [facility] [address] [place] [address] 09/06/2021 10:12:07 09/06/2021 10:43:02 Pain of left knee joint 6267058415 16514 M25.562 Assessment : Pain of left knee jointPlan: She states her Mobic has controlled the pain well so far and I believe she has made great progress lali g her range of motion gains and pain improvemen t since last visit. From my standpoint she may follow-up in roughly 3 months for recheck. [id number] SVETLANA BEAN PA-C [facility] [address] [place] [address] 07/07/2022 10:54:57 07/07/2022 12:30:28 Pain of left knee joint 9116725639 73922 M25.562 Assessment : Follow-up for repeat steroid injection into the left knee.Plan: Injection tolerated well today. Follow-up as needed. [id number] SVETLANA BEAN PA-C [facility] [address] [place] [address] 12/12/2022 13:06:36 12/12/2022 14:59:54 Arthritis of left knee joint 9564874157 537626 M13.862 Derangemen t of lateral meniscus of right knee 6322925551 83707 M23.200 Assessment : 1 Right lateral joint [...] I find reasonable . Follow-up as needed. [id number] SVETLANA BEAN PA-C [facility] [address] [place] [address] 04/26/2023 09:45:52 04/28/2023 09:12:55 Osteoarthritis of knee 114916221 M17.11 M17.12 Assessment : Repeat bilateral steroid injections into right and left knees, which both have some level of degenerati ve changes. Plan: Steroid injections tolerated well without complicati on. The patient may repeat this injection every 3 months. [id number] CAMELIA SAWANT PA-C [facility] [address] [place] [address] 06/30/2023 09:40:18 06/30/2023 11:25:15 Bilateral osteoarthritis of knees 9402309936 44865 M17.0 Mrs. Yin is a mariana 73 [...] today. I will set her up with physician assistant surgery and have her see Dr. Sun for formal surgical discussion along with risks/bene fits of a total knee arthroplas ty. Possible surgery: Stacia sierra medical history: pulmonary HTN , DMII A1c 5.6 (recent ~1 month)Othe r notable informatio n: sister (Vannesa Dowd) just had her knees replaced by Dr. Sun Pain of bi lateral knee joints 8116498054 54867 M25.561 M25.562 [id number] HIEU Zavala MD [facility] [address] [address] 07/04/2023 12:51:35 07/04/2023 14:14:52 Osteoarthritis of left knee joint 5142192601 31722 M17.12 ASSESSMENT : DJD LEFT knee PLAN:The [...] potential cost sharing responsibi lities; only one [facility] can furnish and bill for PCM services during a calendar month, and the patient can stop these services at any time. The patient understand s and has verbally consented to accept PCM services and has been provided a copy of a written explanatio n of this service today. Surgery date: 07-19-23 [facility] location: [facility] equipment: Cemented Fermín MCPre-op clearance: PASSOther medical clearance: DVT prophylaxi s: ASA, TEDAdmissi on status: OUTPATIENT Discharge plan: overnight admissionP T: home health Allergies: PCNSkin testing: No Type 2 tanisha betes mellitus without complication 079680410 E11.9 Well-contr olled on metformin per patient [...] complicati ons. History of major abdominal surgery 786371529 Z98.890 Numerous abdominal surgeries related to perforated diverticul um. This does increase her risk for small bowel obstructio n, ileus, and other abdominal complicati ons following elective TKA. [id number] HIEU Zavala MD [facility] [address] [place] [address] 07/13/2023 15:34:26 07/18/2023 08:49:46 [id number] HIEU Zavala MD SURGERY SCHEDULE [address] [place] [address] 07/19/2023 13:20:19 07/21/2023 14:20:11 [id number] CAMELIA SAWANT PA-C [facility] [address] [place] [address] 08/09/2023 11:21:00 08/09/2023 11:56:04 History of total knee arthroplasty 5845633855 105 Z96.659 Mrs. Yin is a mariana [...] post op follow up with radiograph s. [id number] CAMELIA SAWANT PA-C [facility] [address] [place] [address] 09/27/2023 09:51:37 09/27/2023 10:41:58 History of total knee arthroplasty 2445352890 105 Z96.659 Mrs. Yin is a mariana [...] CSI Osteoarthr itis of right knee joint 6800223164 33011 M17.11 [id number] SVETLANA BEAN PA-C [facility] [address] [place] [address] 07/05/2024 13:13:07 07/05/2024 15:48:52 Osteoarthritis of right knee joint 6495356506 16843 M17.11 [id number] Assessment : Osteoarthr itis right knee Plan: Steroid injection tolerated well without complicati on. Follow-up as needed. [id number] SVETLANA BEAN PA-C [facility] [address] [place] [address] 12/03/2024 08:35:46 12/09/2024 11:42:09 Osteoarthritis of right knee joint 9567846397 05927 M17.11 [id number] Assessment : Osteoarthr itis right knee Plan: [...] Yin 12/02/2024 1 [place] Earnest Yin [id number] Earnest Yin 12/09/2024 1 [employer] (MEDICARE REPLACEMENT/ ADVANTAGE - PPO) Earnest Yin [id number] Earnest Yin Notes Date Note Type Note [...] cultures Not Obtained CAMELIA SAWANT PA-C [address] [place], [address], [facility] 08/09/2023 13:47:59 09/27/2023 text/html 09/27/23Patient is here [...] cultures Not Obtained CAMELIA SAWANT PA-C [address] [place], [address], [facility] 09/27/2023 10:45:54 07/05/2024 text/html WHAT: right knee. [...] none INJECTION: none SVETLANA BEAN PA-C [address] [place], [address], [facility] 07/05/2024 16:43:43 12/03/2024 text/html Patient comes in [...] at this time. SVETLANA BEAN PA-C [address] [place], [address], [facility] 12/04/2024 10:55:30 OBGyn Episode No OBEpisode recorded.
[2025-01-13 19:11] LABS: Alanine Aminotransferase 11 U/L (12-78); Albumin Level 3.6 g/dl (3.5-5.0); Alkaline Phosphatase 133 U/L (38-126); Aspartate Amino Transferase 26 U/L (14-36); Bilirubin,Direct 0.2 mg/dl (0.0-0.4); Bilirubin,Indirect 0.2 mg/dL (0.0-0.9); Bilirubin,Total 0.4 mg/dl (0.2-1.3); Bilirubin,Unconjugated 0.2 mg/dL (0.0-1.1); Cholesterol 228 mg/dl (140-200); HDL Cholesterol 47 mg/dl (40-60); Total Protein,Serum 6.7 g/dl (6.3-8.2); Triglycerides 269 mg/dl (30-150)
[2025-01-13 19:35] LABS: Free Thyroxine Index 2.3 ug/dL (5.93-13.13); T4 (Thyroxine) 8.1 ug/dl (5.53-11.0); Triiodothryronine (T3) Uptake 29 % (23.5-40.5)
[2025-01-13 19:48] LABS: Thyroid Stimulating Hormone 2.38 uIU/mL (0.465-4.68)
== END 2025-01-13 23:59 | disposition home or self-care (01) ==
LOC: LAB 15:44
PROVIDERS: PCP Nurse Practitioner Family; Visit Provider Nurse Practitioner
DX: I48.0 Paroxysmal atrial fibrillation (principal); E78.49 Other hyperlipidemia; I10 Essential (primary) hypertension
CPT/HCPCS: 36415; 80061; 80076; 84436; 84443; 84479; 93225; 93227

== ENCOUNTER 2025-01-16 11:45 | Outpatient (CLI) | payer MEDICARE, SELFPAY ==
--- OUTSIDE RECORDS SUMMARY | 2023-08-21 05:00 | XMS_ITS | Encounter Summary ---
[facility] Address [address] [place] [address] Care Team Providers Care Vp Sales Name Role Phone Ese Barone APRN Primary Care Provid er Encounter Details Date Type Department Care Team (Late st Contact Info) Description 08/21/2023 5:00 AM EDT Hospital Encounter [facility] [place] [address] [facility] [address] [place] [phone] Social History Tobacco Use Types Packs/Day Years Used Date Smoking Tobacco: Former Cigarettes 1.5 10 1 984 - 1993 Smokeless Tobacco: Never Alcohol Use Standard Drinks/Week Comments Not Currently 0 (1 standard drink = 0.6 oz pur e alcohol) RECOVERY 33 YEARS AUDIT-C Answer Date Recorded Frequency of Alcohol Consumption Never 02/16/2019 Average Number of Drinks Not on file 019 Frequency of Binge Drinking Not on file 01/20 PHQ-2 Answer Date Recorded Retired PHQ-9: Brief Depression Severity Measure Score 0 08/29/2022 Abuse Screen Answer Date Recorded Feels Unsafe at Home or Work/School no 08/29/2022 Feels Threatened by Someone no 08/18 Does Anyone Try to Keep You From Having Contact with Others or Doing Things Outside Your Home? no 08/29/2022 Physical Signs of Abuse Present no 08/29/2022 PHQ-2 Answer Date Recorded Retired PHQ-9: Brief Depression Severity Measure Score 0 08/21/2023 Comments No Sex and Gender Information Value Date Recorded Sex Assigned at Female 08/13/2024 10:41 AM EDT Legal Sex Female 1:28 PM EDT Gender Identity Not on file Sexual Orientation Not on file documented as of this encounter Plan of Treatment Upcoming Encounters Date Type Department Care Team (Late st Contact Info) Description 02/17/2025 11:30 AM EST Appointment [facility] [place] [address] [address] [place] [address] 02/17/2025 1:30 PM EST Office Visit [facility] [address] [facility] [address] [address] [place] [phone] Luda Haile, FOREIGN SERVICE TEACHER [address] [facility] [address] [place] [address] 04/22/2025 4:15 PM EST Office Visit [facility] [address] [facility] [address] [place] [phone] Yeison Estrada MD [address] [facility] [address] [place] [address] documented as of this encounter Visit Diagnoses Not on filedocumented in this encounter Care Teams Vp Sales Relationship Specialty Start Date End Date Ese Barone APRN [address] [facility] [address] [place] [address] PCP - General Family Medicine 01/24/22 documented as of this encounter
--- OUTSIDE RECORDS SUMMARY | 2024-07-24 11:30 | XMS_ITS | Encounter Summary ---
Author Organization Healthcare Address [address] [place] [address] Care Team Providers Care Weight Loss Sales Consultant Name Role Phone Mane Castro MD Primary Care Provider [phone] Reason for Visit * Reason Comments Follow-up Encounter Details Date Type Department Care Team (Latest Contact Info) Description 07/24/2024 11:30 AM EDT Office Visit [facility] General Surgery [address] [place] [address] Erica Alicea, HARNESS PLACER [address] [place] [address] Anticoagulated (Primary Dx); Diabetes 1.5, [...] and underwent laparoscopic hernia repair 2020 at [facility]. This was followed recurrence of the hernia and a laparoscopic hernia repair March 08t [facility]. She developed a recurrence of the incisional [...] motor intact and no focal deficits Skin: [place], warm, well perfused Assessment/Plan Problem List Items [...] imaging and/or labs, communicating with other health healthcare management, and entering clinical information in the EHR. 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
--- OUTSIDE RECORDS SUMMARY | 2024-12-04 11:00 | XMS_ITS | Encounter Summary ---
Author Organization Healthcare Address [address] [place] [place] [address] Care Team Providers Care Superintendent Overhead Distribution Name Role Phone Ese Barone ENRIQUE Primary Care Provider [phone] Reason for Visit * Reason Comments Follow-up Encounter Details Date Type Department Care Team (Late st Contact Info) Description 12/04/2024 11:00 AM EDT Office Visit [facility] General Surgery [address], [address] [place] [address] Garrett Galvin MD [address] [address] Personal history of nutritional deficiency (Primary Dx); Recurrent incisional hernia Social History Tobacco Use [...] Sign Reading Time Taken Comments Blood Pressure 149/84 12/04/2024 10:56 AM EDT Pulse 63 12/04/2024 10:56 AM EDT Temperature 36.4 C (97.5 F) 12/04/2024 10:55 AM EDT Respiratory Rate 16 12/04/2024 10:5 5 AM EDT Oxygen Saturation 97% 12/04/2024 10: 55 AM EDT Inhaled Oxygen Concentration - - Weight 98.7 kg (217 lb 11.2 oz) 025 10:55 AM EDT Height 168.8 cm (5' 6.45 ) 12/04/2024 1 0:55 AM EDT Body Mass Index 34.66 12/04/2024 10:55 AM EDT documented in this encounter Miscellaneous Notes * Progress Notes - Munir Anne MD - 12/04/2024 11:00 AM EDT Subjective Mohinder Yin is a 74 y.o. female presenting for Initial Evaluation of incisional hernia. History of Present Illness The patient is a 76-year-old female who presents for evaluation of a hernia. Ms. Yin has a history of bowel perforation followed by laparotomy and ostomy placement in 2018. This was followed by ostomy reversal, appendectomy, and oophorectomy June 07, 2019. She then developed an incisional hernia and underwent laparoscopic hernia repair t [facility]. Thiswas followed recurrence of the hernia and a laparoscopic hernia repair March 08, 2022 at [facility], both involving mesh. Per chart review, she has 3 separate pieces of mesh. However, neither repair was successful in the rodent exterminator. She noticed the recurrence of the hernia shortly after the second surgery, which was about 2 years ago. In the clinic today, she reports no changes in her hernia condition since her last visit. She observes a bulge most of the time, which can be manually reduced or spontaneously reduces when she lies down. She has no history of bowel obstructions and maintains regular bowel movements with MiraLAX every other day. She reports no nausea, vomiting, diarrhea, or constipation. She experiences no pain from the hernia and reports no fevers, chills, chest pain, shortness of breath, skin changes, or wounds in the area. She wears an abdominal binder for support when performing household tasks. She has been on Ozempic and has lost approximately 40 to 45 pounds over the past 6 months. PAST MEDICAL HISTORY: - Bowel perforation (2018) - Prediabetes - Mitral valve prolapse - Stage I non-Hodgkin's lymphoma PAST SURGICAL HISTORY: - Exploratory laparotomy with colostomy and subsequent reversal - Appendectomy - Oophorectomy - Hernia repairs (2020, ) - Knee surgery Work Recent testing: CT scan - 08/19/2024: Approximately 10 x 8 ventral hernia defect, hernia consisting of colon and mesentery US - not performed I personally reviewed imaging, interpreting as above. Outside medical records reviewed and commented on above. Body mass index is 34.66 kg/m??. Non-smoker Medical/Surgical/Social/Family History I have reviewed and updated the patient history. Family History[1] Current Medications[2] Allergies Penicillins, Furosemide, Losartan, Morphine, and Sulfa drugs Review of Systems HENT: Negative. Respiratory: Negative. Cardiovascular: Negative. Gastrointestinal: Negative. Objective Visit Vitals BP (!) 149/84 (BP Location: Right arm, Patient Position: Sitting) Pulse 63 Temp 36.4 ??C (97.5 ??F) (Temporal) Ht 1.688 m (5' 6.45 ) Wt 98.7 kg (217 lb 11.2 oz) SpO2 97% BMI 34.66 kg/m?? Physical Exam Constitutional: well developed, well nourished, and in no acute distress Eyes: equal, round, and reactive Ears, Nose, Throat: normal atraumatic, no neck masses Respiratory: Normal Effort, Normal Rate Abdomen: Soft, non-tender; no organomegaly or masses. Hernias: incisional hernia Genitourinary: not indicated Musculoskeletal: normal strength, tone, and muscle mass, no deformities Psychiatric: oriented to time, place and person, mood and affect are within normal limits Neurologic: motor intact and no focal deficits Skin: [place], warm, well perfused Assessment/Plan Problem List Items Addressed This Visit Recurrent incisional hernia Other Visit Diagnoses Personal history of nutritional deficiency - Primary Relevant Orders POCT Glycosylated Hemoglobin (Hgb A1C) Patient is a 74 y.o. female presenting with ventral incisional hernia status post multiple abdominal surgeries including 2 prior hernia repairs with 3 pieces of mesh. Today we have discussed the patient???s hernia and factors impacting hernia surgery outcomes including weight, smoking, infection, and blood sugar control. Current factors requiring optimization for this patient include BMI. We discussed the possibility of incarceration, strangulation, enlargement in size over time, and the risk of emergency surgery in the face of strangulation during the optimization interval, patient was made aware when to seek urgent evaluation. The patient reports at this time she would not like to undergo surgery if it is not medically necessary at this time. She would like to wait and follow up with us in clinic with repeat imaging. She was given the risks and benefits of getting an operation now versus watchful waiting for signs of obstruction or worsening pain. She has been instructed to wear an abdominal binder at all times. Follow up in 6 months. Munir Anne MD PGY-1 General Surgery 12/04/2024 [1] Family History Problem Relation Name Age of Onset Arthritis Mother mom and Dad / grandp[arents COPD Mother mom and Dad / grandp[arents Heart disease Mother mom and Dad / grandp[arents Hyperlipidemia Mother mom and Dad / grandp[arents Hypertension Mother mom and Dad / grandp[arents Vision loss Mother mom and Dad / grandp[arents [2] Current Outpatient Medications Medication Sig Dispense Refill [...] No current facility-administered medications for this visit. Cosigned by Garrett Galvin MD at 12/10/2024 1:32 PM EDT Associated attestation - Garrett Galvin MD - 12/10/2024 1:32 PM EDT I saw and evaluated the patient with the resident/fellow. I discussed the case with the resident/fellow and agree with the findings and plan as documented. documented in this encounter Plan of Treatment Upcoming Encounters Date Type Department Care Team (Late st Contact Info) Description 06/04/2025 11:00 AM EDT Office Visit [facility] General Surgery [address], [address] [place] [address] Garrett Galvin MD [address] [place] [phone] documented as of this encounter Visit Diagnoses Diagnosis Personal history of nutritional deficiency- Primary Recurrent incisional hernia documented in this encounter Additional Health Concerns Assessment Noted Time A fall risk assessment has been complete d for the patient 12/04/2024 10:55 AM EDT A Body Mass Index follow-up plan has been documented for the patient 12/10/2024 1:33 PM EDT documented as of this encounter Care Teams Superintendent Overhead Distribution Relationship Specialty Start Date End Date Ese Barone APRN [address] [facility] [address] [place] [address] PCP - General 12/04/24 documented as of this encounter
--- OUTSIDE RECORDS SUMMARY | 2024-12-05 11:00 | XMS_ITS | Encounter Summary ---
Author Organization [facility] Address [address] [place] [id number] Care Team Providers Care Director Compensation Name Role Phone Ese Barone APRN Primary Care Provid er Reason for Visit * Reason Comments Rheumatoid Factor Positive * Consultation (Routine) - Closed Specialty Diagnoses / Procedures Referred By Noemi garcia Referred To Contact Rheumatology Diagnoses Pain in left hand Pain in right hand Rheumatoid factor positive Ese Barone, ENRIQUE [address] [place] [address] Phone: tel: fax: [facility] RHEUMATOLOGY [address] [address] Phone: tel: fax: Referral ID Status Reason Start Date Expiration Date Visits Re quested Visits Authorized [id number] Closed 11/13/2024 02/12/2026 1 1 Encounter Details Date Type Department Care Team (Latest Contact Info) Description 12/05/2024 11:00 AM EDT Office Visit [facility] RHEUMATOLOGY [address] [place] [address] Yeison Estrada MD [address] [place] [address] [phone] Rheumatoid factor positive (Primary Dx); Primary osteoarthritis [...] In 2012, 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 Byrne, for positive rheumatoid factor. Large [...] Surgeon: Kade Lance MD; Location: [facility] OR; Service: General; Laterality: N/A; COLONOSCOPY EXPLORATORY LAPAROTOMY N/A 02/16/2019 Procedure: Exploratory laparotomy, Sigmoid resection, Pelvic abscess drainage, Colostomy creation; Surgeon: Humberto Cordova MD; Location: [facility] OR; Service: General LAMINECTOMY L5-S1 REPLACEMENT [...] 6 weeks (around 01/16/2025). Yeison Estrada MD [facility] Rheumatology [facility] documented in this encounter Plan of Treatment Upcoming Encounters Date Type Department Care Team (Late st Contact Info) Description 02/17/2025 11:30 AM EST Appointment [facility] [address] [facility] [address] [place] [phone] 02/17/2025 1:30 PM EST Office Visit [facility] HEMATOLOGY & ONCOLOGY 3000 [facility] [address] [place] [phone] Luda Haile, GARMENT TURNER [address] [facility] [address] [place] [address] 04/22/2025 4:15 PM EST Office Visit [facility] RHEUMATOLOGY 330 [facility] [address] [place] [phone] Yeison Estrada MD 330 [facility] 100 [place] [address] documented as of this encounter Procedures Procedure [...] 9:07 AM EDT Performed at: 02 - [address] [id number] Inside Plant Supervisor: Guerrero Suero PhD, Phone: [phone] Patient Fasting: N Yeison Estrada MD LAB BLOOD ORDERABLES Final Res ult [facility] (AMBULATORY) [address] [place] [address], [facility] [address] [place] [address], * CBC & Differential (12/05/2024 12:15 PM [...] - 12/09/2024 9:07 AM EDT Performed at: [address] [place] [id number] Inside Plant Supervisor: Lewis Henley MD, Phone: [phone] Patient Fasting: N Yeison Estrada MD LAB BLOOD ORDERABLES Final Res ult [facility] (AMBULATORY) [address] [place] [address], [place] [phone] [facility] [address] [place] [address], * Hepatitis Panel, Acute (12/05/2024 12:15 PM EDT) Hep A IgM Negative Negative [facility] Comment: A negative anti-HAV IgM result suggests no recent or current HAV infection. Hepatitis B Surface Ag Negative Negative [facility] Hep B Core IgM Negative Negative [facility] Hepatitis C Ab Non Reactive Non Reactive [facility] Blood 12/05/2024 12:1 5 PM EDT 12/05/2024 Narrative [facility] (AMBULATORY) - 12/09/2024 9:07 AM EDT Performed at: - [address] [id number] Inside Plant Supervisor: Guerrero Suero PhD, Phone: [phone] Patient Fasting: N Yeison Estrada MD LAB BLOOD ORDERABLES Final Res ult [facility] [address] [place] [id number], [place] [phone] [facility] [address] [place] [address], [place] [phone] * BACILIO by IFA, Reflex 9-biomarkers profile [...] 12:1 5 PM EDT 12/05/2024 Narrative [facility] (AMBULATORY) - 12/09/2024 9:07 AM EDT Performed at: - [address] [id number] Inside Plant Supervisor: Guerrero Suero PhD, Phone: [phone] Patient Fasting: N us Yeison Estrada MD LAB BLOOD ORDERABLES Final Res ult Performing Organization Address [facility] Co de Phone Number [facility] (AMBULATORY) [address] [place] [address], [place] [phone] [facility] [address] [place] [address], [place] [phone] * (ABNORMAL) Rheumatoid Factor (12/05/2024 12:15 PM EDT) [facility] RA Latex Turbid 68.4(H) <14.0 IU/mL [facility] Blood 12/05/2024 12:1 5 PM EDT 12/05/2024 Narrative [facility] (AMBULATORY) - 12/09/2024 9:07 AM EDT Performed at: [address] [place] [address] [address] [place], [place] [id number] Inside Plant Supervisor: Guerrero Suero PhD, Phone: [phone] Patient Fasting: N us Yeison Estrada MD LAB BLOOD ORDERABLES Final Res ult Performing Organization Address [facility] Co de Phone Number [facility] (AMBULATORY) [address] [place] [address], [place] [phone] [facility] [address] [place] [address], [place] [phone] * Sedimentation Rate (12/05/2024 12:15 PM EDT) [facility] Sed Rate 15 0 - 30 mm/hr [facility] Blood 12/05/2024 12:1 5 PM EDT 12/05/2024 Narrative [facility] (AMBULATORY) - 12/09/2024 9:07 AM EDT Performed at: [address] [place] [id number] Inside Plant Supervisor: Lewis Henley MD, Phone: [phone] Patient Fasting: N us Yeison Estrada MD LAB BLOOD ORDERABLES Final Res ult Performing Organization Address City/[facility]/ZIP Co de Phone Number [facility] (AMBULATORY) [address] [place] [address], [facility] [address] [place] [address], * Cyclic Citrul Peptide Antibody, IgG / IgA (12/05/2024 12:15 PM EDT) Pathologist [facility] CCP Antibodies IgG/IgA 8 0 - 19 units [facility] Comment: Negative <20 Weak positive 20 - 39 Moderate positive 40 - 59 Strong positive >59 Blood 12/05/2024 12:1 5 PM EDT 12/05/2024 Narrative [facility] (AMBULATORY) - 12/09/2024 9:07 AM EDT Performed at: [address] [place] [address] [place] [id number] Inside Plant Supervisor: Guerrero Suero PhD, Phone: [phone] Patient Fasting: N us Yeison Estrada MD LAB BLOOD ORDERABLES Final Res ult Performing Organization Address [facility] Co de Phone Number [facility] [address] [place] [address], [facility] [address] [place] [address], [place] [phone] * C-reactive Protein (12/05/2024 12:15 PM EDT) [facility] C-Reactive Protein <0.30 0.00 - 0.50 mg/dL [facility] Blood 12/05/2024 12:1 5 PM EDT 12/05/2024 [facility] (AMBULATORY) - 12/09/2024 9:07 AM EDT Performed at: [address] [place] [id number] Inside Plant Supervisor: Lewis Henley MD, Phone: [phone] Patient Fasting: N us Yeison Estrada MD LAB BLOOD ORDERABLES Final Res ult [facility] (AMBULATORY) [address] [place] [address], [facility] [address] [place] [address], * (ABNORMAL) Comprehensive Metabolic Panel (12/05/2024 12:15 [...] - 12/09/2024 9:07 AM EDT Performed at: [address] [place] [address] [place], [place] [id number] Inside Plant Supervisor: Leiws Henley MD, Phone: [phone] Patient Fasting: N Yeison Estrada MD LAB BLOOD ORDERABLES Final Res ult [facility] (AMBULATORY) [address] [place] [address], [facility] [address] [place] [address], * XR Hand 2 View Bilateral (12/05/2024 [...] MD 12/09/2024 4:43 PM EDT Workstation ID: [id number] DxDesc DxDesc Narrative 12/09/2024 4:43 PM EDT [...] MD 12/09/2024 4:43 PM EDT Workstation ID: [id number] DxDes DxDesc us Yeison Estrada MD IMG [...] MD 12/09/2024 4:43 PM EDT Workstation ID: [id number] DxDesc DxDesc Narrative 12/09/2024 4:43 PM EDT [...] MD 12/09/2024 4:43 PM EDT Workstation ID: [id number] DxDesc DxDesc Yeison Estrada MD IMG DIAGNOSTIC IMAGING ORDERAB LES Final Result documented in this encounter Visit Diagnoses Diagnosis Rheumatoid factor positive- Primary Other and unspecified nonspecific immunological findings Primary osteoarthritis of both hands Paresthesia of both feet Chronic fatigue Other malaise and fatigue documented in this encounter Care Teams Director Compensation Relationship Specialty Start Date End Date Ese Barone APRN [facility] [place] [address] PCP - General Family Medicine 01/24/22 documented as of this encounter
--- OUTSIDE RECORDS SUMMARY | 2024-12-05 11:45 | XMS_ITS | Encounter Summary ---
Author Organization [facility] Address [address] [place] [address] Care Team Providers Care Vascular Specialists Name Role Phone Ese Barone APRN Primary Care Provid er Encounter Details Date Type Department Care Team (Late st Contact Info) Description 12/05/2024 11:45 AM EDT Ancillary Procedure [facility] RHEUMATOLOGY [address] [place] [address] Social History Tobacco Use Types [...] Description 02/17/2025 11:30 AM EST Appointment [facility] [address] [facility] [address] [place] [address] 02/17/2025 1:30 PM EST Office Visit [facility] HEMATOLOGY & ONCOLOGY [address] [facility] [address] [place] [address] Luda Haile, WAX CUTTER 17[address] [facility] [address] [place] [address] 04/22/2025 4:15 PM EST Office Visit [facility] RHEUMATOLOGY [address] [facility] 100 [place] [phone] Yeison Estrada MD 330 [facility] 100 [place] [address] documented as of this encounter Procedures Procedure Name Priority Date/Time Associated Diagnosis Comments XR HAND 2 VW BILATERAL Routine 12/05/2024 11:44 AM EDT Rheumatoid factor positive XR FOOT 3+ VW BILATERAL Routine 12/05/2024 11:44 AM EDT Rheumatoid factor positive documented in this encounter Results * XR Hand 2 View Bilateral (12/05/2024 11:44 AM EDT) Anatomical Region Laterality Modality Upper Extremities, Hand Bilateral [facility] 12/09/2024 4:37 PM EDT Impressions [...] MD 12/09/2024 4:43 PM EDT Workstation ID: [id number] DxDesc DxDesc Narrative 12/09/2024 4:43 PM EDT [...] MD 12/09/2024 4:43 PM EDT Workstation ID: [id number] DxDesc DxDesc Yeison Estrada MD IMG DIAGNOSTIC [...] MD 12/09/2024 4:43 PM EDT Workstation ID: [id number] DxDesc DxDesc Narrative 12/09/2024 4:43 PM EDT [...] MD 12/09/2024 4:43 PM EDT Workstation ID: [id number] DxDesc DxDesc us Yeison Estrada MD IMG DIAGNOSTIC IMAGING ORDERAB LES Final Result documented in this encounter Visit Diagnoses Not on filedocumented in this encounter Care Teams Vascular Specialists Relationship Specialty Start Date End Date Ese Barone APRN [address] [place] [address] [place], [place] [address] PCP - General Family Medicine 01/24/22 documented as of this encounter
--- OUTSIDE RECORDS SUMMARY | 2025-01-16 11:47 | XMS_ITS | Referral Summary ---
Author Organization [employer] ([place], [place], [place], [place]) Address [address] [place] [address] Care Team Providers Care Lan Engineer Name Role Phone Mane Castro MD Primary Care Provider [phone] Allergies Active Allergy Reactions Criticality Noted Date [...] Date Dipak rded Speak language other than Vietnamese at home Not on file 04/01/2023 Want [...] on file Medical Devices Implanted Type Area Circuit Breaker Mechanic Device Identifier Shelf Expiration Date Model / Serial / Lot Mesh Vntrlght Cir Echo 2 15cm [id number] - [id number] Implanted:Qt y: 1 on 01/24/2023 by Garrett Ireland MD at [facility] IMPLANTS N/A: Abdomen CR BARD:DAVOL 08/15/2023 [id number] / / [id number] Cement Bone Smplx Hv 6194-1-001 - [id number] Implanted:Qt y: 2 on 07/19/2023 at [facility] IMPLANTS Left: Knee GLENYS:STRYKE R [employer] [id number] 11/17/2024 6194-1-00 / [id number] E Tib Cemented L Sz E 08-9975-563- 01 - [id number] Implanted:Qt y: 1 on 07/19/2023 at [facility] IMPLANTS Left: Knee LANETTE:LANETTE [place] [id number] 05/01/2033 42-5320-0 71- [id number] Psn Asf Mc 14mm Ve 8-11ef 39-5894-954- 14 - [id number] Implanted:Qt y: 1 on 07/19/2023 at [facility] TOTAL JOINT CONSTRUCT Left: Knee LANETTE:LANETTE [place] [id number] 02/09/2028 42-5121-0 08- [id number] Psn Fem Cr Cmt Ccr Nrw Sz 8 L 43-7765-025- 01 - [id number] Implanted:Qt y: 1 on 07/19/2023 at [facility] TOTAL JOINT CONSTRUCT Left: Knee LANETTE:LANETTE [place] [id number] 05/21/2033 42-5020-0 64- [id number] Insurance [employer] MEDICARE PPO Advance Directives For more information, please contact: [phone] * Full Code (Latest Code Status on [...] ACLS medications, or cardioversion as indicated. Call AUTO BODY MECHANIC * Full Code Date Activated Date Inactivated Comments 01/24/2023 6:36 AM 01/24/2023 11:53 AM Care Teams Lan Engineer Relationship Specialty Start Date End Date Mane Castro MD [address] [place] [address] [place] [address] PCP - General Adolescent Medicine 05/04/22
--- OUTSIDE RECORDS SUMMARY | 2025-01-16 11:47 | XMS_ITS | Encounter Summary ---
Author Organization Healthcare Address [address] [place] [address] Care Team Providers Care Supervisor Alum Plant Name Role Phone Ese Barone APRN Primary Care Provider [phone] Encounter Details Date Type Department Care Team [...] Description 06/04/2025 11:00 AM EDT Office Visit [facility] General Surgery [address] [place] [address] Garrett Galvin MD [address] [place] [address] documented as of this encounter Visit Diagnoses Not on filedocumented in this encounter Additional Health Concerns Assessment Noted Time A fall risk assessment has been complete d for the patient 12/04/2024 10:55 AM EDT A Body Mass Index follow-up plan has been documented for the patient 12/10/2024 1:33 PM EDT documented as of this encounter Care Teams Supervisor Alum Plant Relationship Specialty Start Date End Date Ese Barone APRN [address] [facility] [address] [place] [id number] PCP - General 12/04/24 documented as of this encounter
--- OUTSIDE RECORDS SUMMARY | 2025-01-16 11:47 | XMS_ITS | Encounter Summary ---
Author Organization Healthcare Address [address] [place] [address] Care Team Providers Care Commercial Director Name Role Phone Mane Castro MD Primary Care Provider [phone] Ese Barone APRN Primary Care Provider + [phone] Encounter Details Date Type Department Care Team (Late Contact Info) Description 08/19/2024 Orders Only External Location [address] [place] [address] Tamia Hernandez MD [address] [facility] [address] [place] [address] Social History Tobacco Use Types Packs/Day Years [...] [address] [place] [address] Garrett Galvin MD [address] [address] documented as of this encounter Procedures Procedure [...] documented as of this encounter Care Teams Commercial Director Relationship Specialty Start Date End Date Mane Castro MD [address] [place] [address] PCP - General Internal Medicine 11/23/23 12/03/24 Ese Barone APRN [address] [place] [address] PCP - General 12/04/24 documented as of this encounter
--- OUTSIDE RECORDS SUMMARY | 2025-01-16 11:47 | XMS_ITS | Encounter Summary ---
Author Organization Healthcare Address [address] [place] [address] Care Team Providers Care Paramedical Aide Name Role Phone Mane Castro MD Primary Care Provider [phone] Ese Barone APRN Primary Care Provider + [phone] Encounter Details Date Type Department Care Team (Late Contact Info) Description 08/19/2024 Orders Only External Location [address] [place] [address] aTmia Hernandez MD [address] [facility] [address] [place] [address] Social History Tobacco Use Types Packs/Day Years [...] Description 06/04/2025 11:00 AM EDT Office Visit [facility] [address] [place] [address] Garrett Galvin MD [address] [address] documented as of this encounter Procedures Procedure [...] documented as of this encounter Care Teams Paramedical Aide Relationship Specialty Start Date End Date Mane Castro MD [address] [place] [address] PCP - General Internal Medicine 11/23/23 12/03/24 Ese Barone APRN [address] [place] [address] PCP - General 12/04/24 documented as of this encounter
--- OUTSIDE RECORDS SUMMARY | 2025-01-16 11:47 | XMS_ITS | Encounter Summary ---
Author Organization Healthcare Address [address] [place] [address] Care Team Providers Care Jalousies Installer Name Role Phone Mane Castro MD Primary Care Provider [phone] Ese Barone APRN Primary Care Provider + [phone] Encounter Details Date Type Department Care Team (Late Contact Info) Description 08/19/2024 Orders Only External Location [address] [place] [address] Tamia Hernandez MD [address] [facility] [address] [place] [address] Social History Tobacco Use Types Packs/Day Years [...] Description 06/04/2025 11:00 AM EDT Office Visit [place] [facility] [address] [place] [address] Garrett Galvin MD [address] [address] documented as of this encounter Procedures Procedure [...] documented as of this encounter Care Teams Jalousies Installer Relationship Specialty Start Date End Date Mane Castro MD [address] [place] [address] PCP - General Internal Medicine 11/23/23 12/03/24 Ese Barone APRN [address] [place] [address] PCP - General 12/04/24 documented as of this encounter
--- OUTSIDE RECORDS SUMMARY | 2025-01-16 11:47 | XMS_ITS | Encounter Summary ---
Author Organization Healthcare Address [address] [place] [address] Care Team Providers Care Paper Roll Machine Operator Name Role Phone Mane Castro MD Primary Care Provider [phone] Encounter Details Date Type Department Care Team (Late Contact Info) Description 11/25/2024 [facility]phone [facility] [address], [address] [place] [address] Erica Alicea APRN [address] [place] [address] Social History Tobacco Use Types [...] Description 06/04/2025 11:00 AM EDT Office Visit [facility] General Surgery [address], [address] [place] [address] Garrett Galvin MD [address] [facility] [address] [place] [address] documented as of this encounter Visit Diagnoses Not on filedocumented in this encounter Additional Health Concerns Assessment Noted Time A fall risk assessment has been complete d for the patient 11/23/2023 10:08 AM EDT A Body Mass Index follow-up plan has been documented for the patient 07/24/2024 12:33 PM EDT documented as of this encounter Care Teams Paper Roll Machine Operator Relationship Specialty Start Date End Date Mane Castro MD [address] [place] [address] PCP - General Internal Medicine 11/23/23 12/03/24 documented as of this encounter
--- OUTSIDE RECORDS SUMMARY | 2025-01-16 11:47 | XMS_ITS | Encounter Summary ---
Author Organization Healthcare Address [address] [place] [address] Care Team Providers Care Advertising Assistant Name Role Phone Mane Castro MD Primary Care Provider [phone] Ese Barone APRN Primary Care Provider + [phone] Encounter Details Date Type Department Care Team (Late Contact Info) Description 08/19/2024 Orders Only External Location [address] [place] [address] Tamia Hernandez MD [address] [facility] [address] [place] [address] Social History Tobacco Use Types Packs/Day Years [...] [address], [address] [place] [address] Garrett Galvin MD [address] [address] documented as of this encounter Procedures Procedure [...] documented as of this encounter Care Teams Advertising Assistant Relationship Specialty Start Date End Date Mane Castro MD [address] [place] [address] PCP - General Internal Medicine 11/23/23 12/03/24 Ese Barone APRN [address] [place] [address] PCP - General 12/04/24 documented as of this encounter
--- OUTSIDE RECORDS SUMMARY | 2025-01-16 11:47 | XMS_ITS | Encounter Summary ---
Author Organization Healthcare Address [address] [place] [address] Care Team Providers Care Marketing Strategy Manager Name Role Phone Mane Castro MD Primary Care Provider [phone] Ese Barone APRN Primary Care Provider + [phone] Encounter Details Date Type Department Care Team (Late Contact Info) Description 08/19/2024 Orders Only External Location [address] [place] [address] Tamia Hernandez MD [address]00 [facility] [address] [place] [address] Social History Tobacco Use Types Packs/Day Years [...] [address] [place] [address] Garrett Galvin MD [address] [address] documented as of this encounter Procedures Procedure [...] documented as of this encounter Care Teams Marketing Strategy Manager Relationship Specialty Start Date End Date Mane Castro MD [address] [place] [address] PCP - General Internal Medicine 11/23/23 12/03/24 Ese Barone APRN [address] [place] [address] PCP - General 12/04/24 documented as of this encounter
--- OUTSIDE RECORDS SUMMARY | 2025-01-16 11:48 | XMS_ITS | Continuity of Care Document ---
Author Organization [facility], ORTHOPEDICS [address] [place] [address] Care Team Providers Care Contaminated Land Consultant Name Role Phone HIEU CAROLINA Referring Provider [...] Recorded Time History of major abdominal surgery [id number] Active 2023 HIEU BEACH MD [address] [place] [address], [address], [facility] 4 16:51:37 Type 2 diabetes mellitus without complicatio n [id number] [place] 20[place] [address] [place] [address], [address], [facility] 4 16:51:38 Osteoarthri tis of left knee joint [id number] 09 Active 2023 HIEU BEACH MD [address] [place] [address], [address], [facility] 4 16:51:39 Problem Notes None recorded. Procedures Surgical History Date Name Laterality Status Provider Name and Address Organization Details Recorded Time 12/04/19 25 Injection - Joint/Bursa, Major completed SVETLANA BEAN PA-C [address] [place], [address], [facility] 12/04/2024 10:55:10 07/06/19 25 Injection - Joint/Bursa, Parvez completed SVETLANA BEAN PA-C [address] [place], [address], [facility] 07/05/2024 16:43:35 09/27/19 24 Injection - Joint/Bursa, Major completed LAKHWINDER SHARMA PA-C [address] [place], [address], [facility] 09/27/2023 10:44:43 07/19/19 24 total replacement of left knee joint completed Magi Niño [facility] 08/09/2023 11:29:28 07/13/19 24 PCM Visit completed Sin Trinidad [facility] 07/17/2023 10:52:34 04/26/19 24 Injection - Joint/Bursa, Major completed SVETLANA BEAN PA-C [address] [place], [address], [facility] 04/26/2023 10:10:20 12/13/19 23 Injection - Joint/Bursa, Major completed SVETLANA BEAN PA-C [address] [place], [address], [facility] 12/12/2022 13:44:08 07/08/19 23 Injection - Joint/Bursa, Major completed SVETLANA BEAN PA-C [address] [place], [address], [facility] 07/26/2022 14:42:55 08/19/19 22 Injection - Joint/Bursa, Major completed KEVIN CARVALHO MD [address] [place], [address], [facility] 08/18/2021 09:11:40 laminectomy completed Magi Niño [facility] 08/18/2021 08:44:04 cholecystectomy completed Magi Niño [facility] 08/18/2021 08:44:11 Unlisted px meckenya's dvrtclm completed Magi Niño [facility] 08/18/2021 08:44:33 Imaging Results None recorded. Procedure Notes None recorded. Medical Equipment None Reported. Allergies Allergen ID Allergen Name Allergen Category Reaction Reaction Severity Criticality Documentation Date Start Date Code Code System Note Provider Name and Address Organization Details Recorded Time 271610 Product containin g penicilli n (product) medicatio n Not available Not available Not available 08/18/2021 79863 8001 SNOMED Magi [facility] 2 08:40:20 908369 Lasix medicatio n Not available Not available Not available 08/18/2021 1 RxNorm Magi [place] [facility] 2 08:40:24 512360 losartan medicatio n Not available Not available Not available 08/18/2021 22197 RxNorm Magi [facility] 2 08:40:30 Medications Name Sig Start [...] Tobacco Smoking Status Never Smoker Magi Niño [facility] 08/18/2021 08:43:35 What Is Your Level Of Caffeine Consumption? Moderate [email or web address] Information not available 08/18/2021 What Was The Date Of Your Most Recent Tobacco Screening? 08/09/2023 [email or web address] Information not available 08/09/2023 What Is Your Relationship Status? [email or web address] Information not available 08/18/2021 Has Tobacco Cessation Counseling Been Provided? No [email or web address] Information not available 08/18/2021 Sex: Female Functional Status Question Answer Note LastModified by Organizat ion Details LastModified Time Do you use any illicit or recreational drugs? No [email or web address] Information not available 08/18/2021 Do you or have you ever used any other forms of tobacco or nicotine? No Information not available 08/18/2021 What is your level of alcohol consumption? None [email or web address] Information not available 08/18/2021 Are you currently employed? No retired [email or web address] Information not available 08/18/2021 Mental Status None recorded. Family History Relationship Description Onset Age of this Age Resolved Age Notes LastModified by Organization Details LastModified Time Father No current problems or disability [email or web address] Not available 03/2021 08:43:19 Mother No current problems or disability [email or web address] Not available 03/2021 08:43:19 Medical History Condition Response Allergies/Hayfever N Anxiety/Depression Y Other Y Gout N Thyroid Disease N Kidney Stones N Heart Conditions N Hernia N Migraines N COPD N Glaucoma N Pneumonia N Skin Problems N Immune System Disorder N Anesthesia Complications N Heart Attack ([place]) N Mental Illness N Neurological Problems N [...] ICD10 Code Diagnosis IMO Codes Diagnosis Note [id number] SVETLANA BEAN PA-C ORTH[facility] [address] [place] [address] 12/03/2024 08:35:46 12/09/2024 11:42:09 Osteoarthritis of right knee joint [id number] 06279 M17.11 [id number] Assessment : Osteoarthr itis right knee Plan: [...] (MEDICARE REPLACEMENT/ ADVANTAGE - PPO) Mohinder Yin [id number] Mohinder Yin Notes Date Note Type Note [...] at this time. SVETLANA BEAN PA-C [address] [place], [address], [facility] 12/04/2024 10:55:30 OBGyn Episode No OBEpisode recorded.
--- OUTSIDE RECORDS SUMMARY | 2025-01-16 11:48 | XMS_ITS | Encounter Summary ---
[facility] Address [address] [place] [address] Care Team Providers Care Hot Dip Plater Name Role Phone LizabethEse salter Luda NUNEZ Primary Care Provid er Encounter Details Date Type Department Care Team (Late st Contact Info) Description 12/09/2024 Results Follow-Up [facility] RHEUMATOLOGY [address] [facility] [address] [place] [address] Yeison Estrada MD [address] [address] Social History Tobacco Use Types [...] Info) Description 02/17/2025 11:30 AM EST Appointment [facility] [address] [facility] [address] [place] [address] 02/17/2025 1:30 PM EST Office Visit [facility] HEMATOLOGY & ONCOLOGY [address] [facility] [address] [place] [address] Luda Haile, DATA ENTRY PROCESSOR [address] [facility] [address] [place] [address] 04/22/2025 4:15 PM EST Office Visit [facility] RHEUMATOLOGY [address] [facility] [address] [place] [address] Yeison Estrada MD 330 [facility] [address] [place] [address] documented as of this encounter Visit Diagnoses Not on filedocumented in this encounter Care Teams Hot Dip Plater Relationship Specialty Start Date End Date Ese Barone, ENRIQUE [address] [facility] [address] [place] [address] PCP - General Family Medicine 01/24/22 documented as of this encounter
--- OUTSIDE RECORDS SUMMARY | 2025-01-16 11:48 | XMS_ITS | Encounter Summary ---
Author Organization [facility] Address [address] [place] [address] Care Team Providers Care Administrative Court Justice Name Role Phone Ese Baroen APRN Primary Care Provid er Encounter Details [...] Info) Description 02/17/2025 11:30 AM EST Appointment [facility] 3000 [facility] 120 [place] [address] 02/17/2025 1:30 PM EST Office [facility] HEMATOLOGY & ONCOLOGY [address] [facility] [address] [place] [address] Luda Haile, SQL DEVELOPER [address] [facility] [address] [place] [address] 04/22/2025 4:15 PM EST Office Visit [facility] RHEUMATOLOGY 330 [facility] 100 [place] [address] Yeison Estrada MD 330 [facility] 100 [place] [address] documented as of this encounter Visit Diagnoses Not on filedocumented in this encounter Care Teams Administrative Court Justice Relationship Specialty Start Date End Date Ese Barone APRN [address] [facility] [address] [facility] [address] [facility] [place] [address] PCP - General Family Medicine 01/24/22 documented as of this encounter
--- OUTSIDE RECORDS SUMMARY | 2025-01-16 11:48 | XMS_ITS | Encounter Summary ---
[facility] [address] [place] [address] Care Team Providers Care Ocean Transportation Intermediary Name Role Phone Lizabeth Ese Luda NUNEZ Primary Care Provid er Encounter Details Date Type Department Care Team (Late st Contact Info) Description 12/12/2024 Patient rounding ([facility] only) [facility] RHEUMATOLOGY [address] [place] [address] Colette Enamorado RegSched Rep Social History Tobacco [...] FOLLOWING MESSAGE SENT TO THE PATIENT VIA [employer]: This is Colette, I am the patient access locomotive supervisor for your new provider at [facility]. I am reaching out to welcome you [...] feel free to contact our office at [phone] with any questions or concerns. Thank you and have a wonderful day! PATIENT DID NOT RESPOND documented in this encounter Plan of Treatment Upcoming Encounters Date Type Department Care Team (Late st Contact Info) Description 02/17/2025 11:30 AM EST Appointment [facility] [address] [facility] [address] [place] [address] 02/17/2025 1:30 PM EST Office Visit [facility] HEMATOLOGY & ONCOLOGY [address] [facility] [address] [place] [address] Luda Haile, PHYSICAL THERAPY RESIDENT [address] [facility] [address] [place] [address] 04/22/2025 4:15 PM EST Office Visit [facility] RHEUMATOLOGY 330 [facility] 100 [place] [address] Yeison Estrada MD 330 [facility] 100 [place] [address] documented as of this encounter Visit Diagnoses Not on filedocumented in this encounter Care Teams Ocean Transportation Intermediary Relationship Specialty Start Date End Date Ese Barone APRN [address] [facility] [address] [facility] [address] [place] [address] PCP - General Family Medicine 01/24/22 documented as of this encounter
--- OUTSIDE RECORDS SUMMARY | 2025-01-16 11:48 | XMS_ITS | Clinical Summary ---
Author Organization [facility] Address [address] [place] [address] Care Team Providers Care Attraction Worker Name Role Phone Ese Barone APRN Primary [...] Department Care Team Description 12/12/2024 Patient rounding ([facility]) [facility] RHE[facility] [address] [address] Colette Enamorado RegSched Rep 12/09/2024 Results Follow-Up [facility] RHEUMATOLOG[facility] [address] [address] Yeison Estrada MD 12/05/2024 11:45 AM EDT Ancillary Procedure [facility] RHE[facility] [address] [address] 12/05/2024 11:00 AM EDT Office Visit [facility] RHEUMATOLOGY [address] [address] Yeison Estrada MD Rheumatoid factor positive (Primary [...] Info) Description 02/17/2025 11:30 AM EST Appointment [facility] [address] [facility] [address] [place] [address] 02/17/2025 1:30 PM EST Office Visit [facility] HEMATOLOGY & ONCOLOGY 3000 [facility] [address] [place] [id number] Luda Haile, PRODUCTION EDITOR [address] [facility] [address] [place] [address] 04/22/2025 4:15 PM EST Office Visit [facility]HEUM[facility] 330 [facility] [address] [place] [phone] Yeison Estrada MD 330 [facility] [address] [place] [address] Health Maintenance Due Date Last Done Comments [...] Completed 12/05/2024 Medical Devices Implanted Type Area Ferry Operator Device Identifier Shelf Expiration Date Model / Serial / Lot Stplr Crv Cut Contrd 3mm Neymar Cs40b - [id number] Implanted:Qty : 1 on 02/16/2019 by Humberto Cordova MD at [facility] Implant N/A: Abdomen [employer] DIV OF J AND J 06/18/2023 CS40B / / [id number] Reload Stplr Cut Contrd Std 3 Neymar Cr40b - [id number] Implanted:Qty : 1 on 02/16/2019 by Humberto Cordova MD at [facility] Implant N/A: Abdomen [employer] DIV OF J AND J 03/19/2022 CR40B / / [id number] Stplr Lnr Cut Prox Thk 55mm Grn Tct55 - [id number] Implanted:Qty : 1 on 05/13/2019 by Kade Lance MD at [facility] Implant N/A: Abdomen [employer] DIV OF J AND J 03/19/2024 TCT55 / / [id number] Description:[place] only rem ain in patient Stplr Endo Crv 29mm Ecs29a - [id number] Implanted:Qty : 1 on 05/13/2019 by Kade Lance MD at [facility] Implant N/A: Abdomen [employer] DIV OF J AND J 02/17/2024 ECS29A / / [id number] Description:[place] only imp lant left in patient. Procedures [...] 12:1 5 PM EDT 12/05/2024 Narrative [facility] ([facility]BULATORY) - 12/09/2024 9:07 AM EDT Performed at: - [address] [id number] Retort Forker: Guerrero Suero PhD, Phone: [phone] Patient Fasting: N us Yeison Estrada MD LAB BLOOD ORDERABLES Final Res ult [facility] [address] [place] [address], [facility] [address] [place] [address], * Hepatitis C Virus Interpretation (12/05/2024 12:15 PM EDT) Interpretation Comment [facility] Comment: Not infected with HCV unless early or acute infection is suspected (which may be delayed in an immunocompromised individual), or other evidence exists to indicate HCV infection. 12/05/2024 12:1 5 PM EDT 12/05/2024 Narrative [facility]) - 12/09/2024 9:07 AM EDT Performed at: [address] [id number] Retort Forker: Guerrero Suero PhD, Phone: [phone] Patient Fasting: N us Yeison Estrada MD LAB BLOOD ORDERABLES Final Res ult Performing Organization Address [facility] Co de Phone Number [facility] [address] [place] [address], [facility] [address] [place] [address], * (ABNORMAL) Rheumatoid Factor (12/05/2024 12:15 PM EDT) Pathologist [facility] RA Latex Turbid 68.4(H) <14.0 IU/mL [facility] Blood 12/05/2024 12:1 5 PM EDT 12/05/2024 Narrative [facility]) - 12/09/2024 9:07 AM EDT Performed at: [address] [id number] Retort Forker: Guerrero Suero PhD, Phone: [phone] Patient Fasting: N us Yeiosn Estrada MD LAB BLOOD ORDERABLES Final Res ult Performing Organization Address [facility] Co de Phone Number [facility] [address] [place] [address], [facility] [address] [place] [address], * Cyclic Citrul Peptide Antibody, IgG / IgA (12/05/2024 12:15 PM EDT) Pathologist [facility] CCP Antibodies IgG/IgA 8 0 - 19 units [facility] Comment: Negative <20 Weak positive 20 - 39 Moderate positive 40 - 59 Strong positive >59 Blood 12/05/2024 12:1 5 PM EDT 12/05/2024 Narrative [facility] ([facility]) - 12/09/2024 9:07 AM EDT Performed at: [address] [id number] Retort Forker: Guerrero Suero PhD, Phone: [phone] Patient Fasting: N us Yeison Estrada MD LAB BLOOD ORDERABLES Final Res ult Performing Organization Address City/[facility]/ZIP Co de Phone Number [facility] [address] [place] [address], [facility] [address] [place] [address], * Hepatitis Panel, Acute (12/05/2024 12:15 PM [...] 12:1 5 PM EDT 12/05/2024 Narrative [facility]) - 12/09/2024 9:07 AM EDT Performed at: [address] [place] [id number] Retort Forker: Guerrero Suero PhD, Phone: [phone] Patient Fasting: N us Yeison Estrada MD LAB BLOOD ORDERABLES Final Res ult Performing Organization Address [facility] Co de Phone Number [facility] [address] [place] [address], [facility] [address] [place] [address], * Sedimentation Rate (12/05/2024 12:15 PM EDT) [facility] Sed Rate 15 0 - 30 mm/hr [facility] Blood 12/05/2024 12:1 5 PM EDT 12/05/2024 [facility] - 12/09/2024 9:07 AM EDT Performed at: [address] [place] [id number] Retort Forker: Lewis Henley MD, Phone: [phone] Patient Fasting: N us Yeison Estrada MD LAB BLOOD ORDERABLES Final Res ult [facility]) [address] [place] [address], [place] [phone] [facility] [address] [place] [address], * CBC & Differential (12/05/2024 12:15 PM [...] 12/09/2024 9:07 AM EDT Performed at: [address] [place] [id number] Retort Forker: Lewis Henley MD, Phone: [phone] Patient Fasting: N us Yeison Estrada MD LAB BLOOD ORDERABLES Final Res ult Performing Organization Address [facility] Co de Phone Number [facility]) [address] [place] [address], [facility] [address] [place] [address], * C-reactive Protein (12/05/2024 12:15 PM EDT) [facility] C-Reactive Protein <0.30 0.00 - 0.50 mg/dL [facility] Blood 12/05/2024 12:1 5 PM EDT 12/05/2024 Narrative [facility] ([facility]) - 12/09/2024 9:07 AM EDT Performed at: [address] [place] [id number] Retort Forker: Lewis Henley MD, Phone: [phone] Patient Fasting: N us Yeison Estrada MD LAB BLOOD ORDERABLES Final Res ult Performing Organization Address City/[facility]/ZIP Co de Phone Number [facility] ([facility]) [address] [place] [address], [facility] [address] [place] [address], * (ABNORMAL) Comprehensive Metabolic Panel (12/05/2024 12:15 [...] 12/09/2024 9:07 AM EDT Performed at: [address] [id number] Retort Forker: Lewis Henley MD, Phone: [phone] Patient Fasting: N us Yeison Estrada MD LAB BLOOD ORDERABLES Final Res ult [facility]) [address] [place] [address], [facility] [address] [place] [address], * XR Hand 2 View Bilateral (12/05/2024 [...] MD 12/09/2024 4:43 PM EDT Workstation ID: [id number] DxDesc DxDesc Narrative 12/09/2024 4:43 PM EDT [...] MD 12/09/2024 4:43 PM EDT Workstation ID: [id number] Yeison Estrada MD IMG DIAGNOSTIC IMAGING ORDERAB [...] MD 12/09/2024 4:43 PM EDT Workstation ID: [id number] DxDesc Narrative 12/09/2024 4:43 PM EDT XR [...] MD 12/09/2024 4:43 PM EDT Workstation ID: [id number] DxDesc DxDesc Result [facility] Yeison Estrada MD IMG DIAGNOSTIC IMAGING ORDERAB LES Final Result * LABS SCANNED (11/04/2024) [facility] LAB BLOOD ORDERABLES Final Re sult * SCANNED - MAMMO (07/05/2022) Anatomical Region Laterality Modality Other [facility] CHART REVIEW TABS Final Re sult * Hemoglobin A1c (05/06/2019 12:37 PM EST) Pathologist [facility] Hemoglobin A1C 5.40 4.80 - 5.60 % 05/06/2019 1:34 PM EST [facility] Blood Venipuncture / Unknown 05/06/2019 12:37 PM EST 05/06/2019 12:52 PM EST Narrative [facility] - 05/06/2019 1:34 PM EST Hemoglobin A1C Ranges: Increased Risk for Diabetes 5.7% to 6.4% Diabetes >= 6.5% Diabetic Goal < 7.0% Kade Lance MD LAB BLOOD ORDERABLES Final Re sult [facility]
[address] [place] [address], * POC Occult Blood Stool (03/20/2019 3:04 PM EST) Pathologist [facility] Fecal Occult Blood Negative Negative [facility] Lot Number [id number] [facility] Expiration Date 62,022 [facility] DEVELOPER [address] NUMBER [id number] [facility] DEVELOPER EXPIRATION DATE 62, [facility] Positive Control Positive Positive [facility] Negative Control Negative Negative [facility] Stool Specimen from rectum / Unknown 03/20/2019 3:04 PM EST us Nicola Khan MD POINT OF CARE TEST ORDERA BLES Final Result [facility]
[address] [place] [id number], from Last 3 Months or Most Recently Relevant to Health Maintenance Insurance [facility] Medicare [employer] PPO Advance Directives Documents on File Type Date Recorded Patient Facing Slitter Expl anation LIVING WILL - SCAN 05/13/2019 8:09 AM bay ng will [id number] * CPR (Attempt to Resuscitate) (Latest Code [...] Of Support Discussed With: Patient Care Teams Attraction Worker Relationship Specialty Start Date End Date Ese Barone APRN [address] [facility] [address] [facility] [address] [place] [address] PCP - General Family Medicine 01/24/22
--- OUTSIDE RECORDS SUMMARY | 2025-01-16 11:49 | XMS_ITS | Encounter Summary ---
Author Organization [employer] ([place], [place], [place], [place]) Address [address] [place] [address] Care Team Providers Care Oil Refiner Name Role Phone Mane Castro MD Primary Care Provider [phone] Encounter Details Date Type Department Care Team (Late st Contact Info) Description 09/16/2020 Transcribed Document [facility] [place] [facility] [address] [place] [address] ProviderRayna MD [address] [place], [place] [id number] Social History Tobacco Use Types Packs/Day Years [...] on filedocumented in this encounter Care Teams Oil Refiner Relationship Specialty Start Date End Date Mane Castro MD [address] [place] [address] PCP - General Adolescent Medicine 05/04/22 documented as of this encounter
--- OUTSIDE RECORDS SUMMARY | 2025-01-16 11:49 | XMS_ITS | Encounter Summary ---
Author Organization [employer] ([place], [place], [place]) Address [address] [place] [address] Care Team Providers Care It Professional Name Role Phone Mane Castro MD Primary Care Provider [phone] Encounter Details Date Type Department Care Team (Late st Contact Info) Description 09/14/2020 Transcribed Document [facility] [place] [address] [place] [address] ProviderRayna MD [address] [place], [place] [id number] Social History Tobacco Use Types Packs/Day Years [...] Source : Measured Height Entry Format : [place] Height, Feet : 5 ft(Converted to: 152 cm, 60 Inch) Height, Inches : 7.5 Inch(Converted to: 0 ft 8 Inch, 19.05 cm) Clinical Height : 171.45 cm Weight Source : Standing scale Weight Entry Format : [place] Clinical Dosing Weight : 111.36 kg Weight, Pounds : 245 lb Body Surface Area (BSA) : 2.22 m2 Body Mass Index : 37.9 kg/m2 (HI) [place] Body Weight : 62 kg VI Singh RN - 09/15/2020 8:32 EDT Health Histories Smoking Status : Former smoker, quit more than 30 days ago Smokeless Tobacco Status : Never Implant/Device Type, Potter Or Ceramic Artist and Model : dental bridge Haroon Machado [...] Copy Advance Directive Verified/on Chart : VI Macairo RN - 09/15/2020 8:32 EDT Patient has Advance Directive *Q : Yes, Advance Directive with the patient Advance Directive Type : Living will Haroon Machado Rn - 09/14/2020 13:20 EDT Spiritual/Cultural Needs Any Spiritual/Cultural Needs or Requests : No Haroon Machado Rn - 09/14/2020 13:20 EDT [place] Suicide Severity Rating Scale (C-SSRS) CSSRS Past [...] EDT Legal Guardian : Spouse Support Person/Patient Sliver Handler : Yes Support Person/Pt Rep Name : Lewis Yin - Support Person/Pt Rep Contact Information : [phone] Want Family/Rep/Phys Notified of Admit : No Emergency Contact #1 : ` Emergency Contact #1 Phone Number : ` Emergency Contact #1 Relationship : ` Emergency Contact #2 : ` Emergency Contact #2 Phone Number : ` Emergency Contact #2 Relationship : ` Information Obtained From : Patient Primary Language : Ethiopian Communication Barrier : None Land Development Manager Needed : No Haroon Machado Rn - [...] on filedocumented in this encounter Care Teams It Professional Relationship Specialty Start Date End Date Mane Castro MD [address] [place] [address] PCP - General Adolescent Medicine 05/04/22 documented as of this encounter
--- OUTSIDE RECORDS SUMMARY | 2025-01-16 11:49 | XMS_ITS | Encounter Summary ---
Author Organization [employer] ([place], [place], [place], [place]) Address [address] [place] [address] Care Team Providers Care Dry House Operator Name Role Phone Mane Castro MD Primary Care Provider [phone] Encounter Details Date Type Department Care Team (Late st Contact Info) Description 09/17/2020 Transcribed Document [facility] [place] [address] [place] [address] ProviderRayna MD [address] [place] [address] Social History Tobacco Use Types [...] Polo MD - 09/17/2020 10:28 AM CDT [facility] [place], [place] [id number] EARNEST YIN :1950 Visit Time:09/15/2020 Your Visit Summary Your Care Team Admitting Physician - KATIUSKA POLANCO MD-ALTHEA Attending Physician - KATIUSKA POLANCO MD-SUR Primary Care Physician - MINESH CEE NP-[facility] Referring Physician - KATIUSKA POLANCO MD-SUR [...] up. Appointment has been made. Where: [address] [facility] [address] [place] [address]- Medications What How Much When Instructions Next Dose acetaminophen-hydrocodone (acetaminophen-HYDROcodone 325 mg-5 mg oral tablet) 1-2 tabs Oral Every 6 Hours as needed for for pain Pickup at [facility] # as needed ondansetron (Zofran 4 mg oral tablet) 1 Tablet(s) Oral Every 8 Hours as needed for Nausea Pickup at [facility] # as needed bumetanide (bumetanide 1 mg [...] have not had this today Pharmacy Information [facility] #: [address] [phone] Take your medications faithfully. Do NOT skip [...] if you see any changes. ??? Take adiz-qjk-njvopjr and prescription medicines only as told by [...] provider. Document Revised: 04/07/2018 Document Reviewed: 12/06/2017 [employer] Patient Education ?? 2020 [employer]. Laparoscopic Inguinal Hernia Repair, Adult Laparoscopic inguinal [...] including vitamins, herbs, eye drops, creams, and wrbi-phc-xbqbutn medicines. ??? Any problems you or family [...] diabetes medicines or blood thinners. ? Taking eaop-bns-ycokkve medicines, vitamins, herbs, and supplements. ? Taking [...] provider. Document Revised: 08/14/2019 Document Reviewed: 06/15/2017 [employer] Patient Education ?? 2020 [employer] Laparoscopic Inguinal Hernia Repair, Adult, Care [...] and water are not available, use hand central office trouble shooter. ? Change your dressing as told by [...] allowed to take sponge baths. ??? Take wemf-dqc-duspzfx and prescription medicines only as told by your health care provider. ??? To prevent or treat constipation while you are taking prescription pain medicine, your health care provider may recommend that you: ? Drink enough fluid to keep your urine pale yellow. ? Take rahq-ond-sjocnsu or prescription medicines. ? Eat foods that [...] provider. Document Revised: 08/14/2019 Document Reviewed: 06/15/2017 [employer] Patient Education ?? 2019 [employer]. acetaminophen and hydrocodone (a SEET a MIN oh fen and lesly cheryl KOE done) Hycet, Lorcet, [place], Verdrocet, Vicodin, Xodol, Zamicet What is the [...] may report side effects to FDA at 1-985-ZKM-0324. What other drugs will affect acetaminophen and [...] affect acetaminophen and hydrocodone, including prescription and jldm-kxw-obapyqg medicines, vitamins, and herbal products. Not all [...] to ensure that the information provided by [employer]. ('Transfer Tot[employer]') is accurate, up-to-date, and complete, but no guarantee is made to that effect. Drug information contained herein may be time sensitive. [employer] information has been compiled for use by healthcare practitioners and consumers in the [place] and therefore [employer] does not warrant that uses outside of the [place] are appropriate, unless specifically indicated otherwise. [employer]'s drug information does not endorse drugs, diagnose patients or recommend therapy. [employer] drug information is an informational resource designed [...] effective or appropriate for any given patient. [employer] does not assume any responsibility for any aspect of healthcare administered with the aid of information [employer] provides. The information contained herein is not intended to cover all possible uses, directions, precautions, warnings, drug interactions, allergic reactions, or adverse effects. If you have questions about the drugs you are taking, check with your doctor, nurse or pharmacist. Copyright 0859-5701 [employer]. Version: 16.03. Revision Date: 04/21/2020. ondansetron (oral) [...] may report side effects to FDA at 0-535-AXP-2084. What other drugs will affect ondansetron? Ondansetron [...] interact with ondansetron. This includes prescription and yiuc-bbz-hdjagar medicines, vitamins, and herbal products. Give a [...] to ensure that the information provided by [employer]. ('Multum') is accurate, up-to-date, and complete, but no guarantee is made to that effect. Drug information contained herein may be time sensitive. [employer] information has been compiled for use by healthcare practitioners and consumers in the [place] and therefore [employer] does not warrant that uses outside of the [place] are appropriate, unless specifically indicated otherwise. [employer] drug information does not endorse drugs, diagnose patients or recommend therapy. [employer] drug information is an informational resource designed [...] effective or appropriate for any given patient. [employer] does not assume any responsibility for any aspect of healthcare administered with the aid of information [employer] provides. The information contained herein is not intended to cover all possible uses, directions, precautions, warnings, drug interactions, allergic reactions, or adverse effects. If you have questions about the drugs you are taking, check with your doctor, nurse or pharmacist. Copyright 0461-2287 [employer]. Version: 13.01. Revision Date: 01/08/2016. Emergency Awareness [...] Assistance with quitting is available by contacting 6-085-RSVB-NOW. This is a free resource providing counseling, [...] was given the opportunity to ask questions. Patient/Manager Service Desk Name: Patient/Manager Service Desk Signature: Relationship to Patient: Clinician/Hospital Manager Service Desk Signature: Date: documented in this encounter Plan of Treatment Not on file documented as of this encounter Visit Diagnoses Not on filedocumented in this encounter Care Teams Dry House Operator Relationship Specialty Start Date End Date Mane Castro MD [address] [place] [address] PCP - General Adolescent Medicine 05/04/22 documented as of this encounter
--- OUTSIDE RECORDS SUMMARY | 2025-01-16 11:49 | XMS_ITS | Encounter Summary ---
Author Organization [employer] ([place], [place], [place], [place]) Address [address] [place] [address] Care Team Providers Care Wedger And Gluer Name Role Phone Mane Castro MD Primary Care Provider [phone] Encounter Details Date Type Department Care Team (Late st Contact Info) Description 09/16/2020 Transcribed Document [facility] [place] [address] [place] [address] ProviderRayna MD [address] [place], [place] [phone] Social History Tobacco Use Types Packs/Day Years [...] On: 09/16/2020 15:27 EDT by MAKAYLA DC, RN-Stable Helper Initial Assessment I Previously Documented Living Environment : No qualifying data available. Living Situation : Home Patient Lives With : Spouse Is the Patient a Caregiver at Home? : No Emergency Contact #1 : `Lewis Yin Emergency Contact #1 Phone Number : `[phone] Emergency Contact #1 Relationship : ` Emergency Contact #2 : ` Emergency Contact #2 Phone Number : ` Emergency Contact #2 Relationship : ` Enter Doctors Name : lul sam Does Patient have PCP Listed? : Yes Patient's Home Caregiver Name/Relationship : Fidelia Yin Patient's Home Caregiver Phone Number : `[phone] Medical Durable Power of Rhia Name : yes - MAKAYLA DC RN-Stable Helper - 09/16/2020 15:27 EDT Initial Assessment II Sensory and Motor Deficits : None Current Home Treatments and Equipment : None MAKAYLA DC RN-Stable Helper - 09/16/2020 15:27 EDT Discharge Needs I Anticipated Discharge Date : 09/17/2020 EDT Anticipated Discharge To, CM : Home independently, Home with home health Current Home Treatment/Equipment : Current Home Treatment/Equipment No qualifying data available. Post Acute/Home Treatments : None Documentation Status Complete : Yes MAKAYLA DC RN-Stable Helper - 09/16/2020 15:27 EDT Discharge Needs II Professional Skilled Services : Professional Skilled Services No qualifying data available. Needs Assistance with Transportation : No Discharge Options Discussed with Patient : Discharge transportation, DME, Home Health MAKAYLA DC RN-Stable Helper - 09/16/2020 15:27 EDT Narrative Note Narrative [...] . DCP: home vs hh MAKAYLA DC RN-Stable Helper - 09/16/2020 15:27 EDT documented in this encounter Plan of Treatment Not on file documented as of this encounter Visit Diagnoses Not on filedocumented in this encounter Care Teams Wedger And Gluer Relationship Specialty Start Date End Date Mane Castro MD [address] [place] [address] PCP - General Adolescent Medicine 05/04/22 documented as of this encounter
--- OUTSIDE RECORDS SUMMARY | 2025-01-16 11:49 | XMS_ITS | Encounter Summary ---
Author Organization [employer] ([place], [place], [place], [place]) Address [address] [place] [address] Care Team Providers Care Machine Oiler Name Role Phone Mane Castro MD Primary Care Provider + [phone] Encounter Details Date Type Department Care Team (Late st Contact Info) Description 09/15/2020 Transcribed Document [facility] [place] [address] ProviderRayna MD [address] [place], [place] [id number] Social History Tobacco Use Types Packs/Day Years [...] Problems Urinary tract infection / SNOMED CT 642056554 / Confirmed Tachycardia / SNOMED CT 7034175 / Confirmed Cervical stenosis of spine / SNOMED CT 693278414 / Confirmed Sinusitis / SNOMED CT 53222829 / Confirmed Pulmonary hypertension / SNOMED CT 128520277 / Confirmed Emphysema lung / SNOMED CT 866390863 / Confirmed Perforated bowel / SNOMED CT 66182348 / Confirmed Hyperlipidemia / SNOMED CT 38192010 / Confirmed History of obstructive sleep apnea / IMO 14779714 / Confirmed High blood pressure / SNOMED CT 91046942 / Confirmed Diverticulitis / SNOMED CT 497041069 / Confirmed Cataract / SNOMED CT 879569492 / Confirmed Bronchitis / SNOMED CT 90224628 / Confirmed Back pain / SNOMED CT 5955952816 / Confirmed Arthritis / SNOMED CT 0554941 / Confirmed Allergic rhinitis / SNOMED CT 450873832 / Confirmed, Active Problems (16) Allergic rhinitis [...] resection with colostomy. colostomy takedown/colon resection/oophorectomy. Cholecystectomy (43095197). laminectomy. Physical Examination VS/Measurements Vital Signs/Vital Measures [...] EDT Height Source Measured Height Entry Format [place] Height/Length, IRAQI (ft) 5 ft Height/Length IRAQI 7.5 Inch CLINICALHEIGHT 171.45 cm [place] Body Weight 62 kg Weight Source Standing scale Weight Entry Format [place] Weight Vietnamese lb 245 lb CLINICALWEIGHT 111.36 kg Body Surface Area (BSA) 2.22 m2 Body Mass Index 37.9 kg/m2 HI 09/14/2020 13:20 EDT Height Source Measured Height Entry Format [place] Height/Length, IRAQI (ft) 5 ft Height/Length IRAQI 7.5 Inch CLINICALHEIGHT 171.45 cm [place] Body Weight 62 kg Weight Source Standing scale Weight Entry Format [place] Weight Vietnamese lb 245 lb CLINICALWEIGHT 111.36 kg Body [...] of motion, Normal strength. Integumentary: Warm, Dry, [place]. Neurologic: Alert, Oriented. Psychiatric: Cooperative, Appropriate mood & affect. Review / Management Results review: No qualifying data available, Lab results: 09/15/2020 9:02 EDT Potassium POC 4.4 mmol/L . Impression and Plan Condition: Stable. documented in this encounter Plan of Treatment Not on file documented as of this encounter Visit Diagnoses Not on filedocumented in this encounter Care Teams Machine Oiler Relationship Specialty Start Date End Date Mane Castro MD [address] [place] [address] PCP - General Adolescent Medicine 05/04/22 documented as of this encounter
--- OUTSIDE RECORDS SUMMARY | 2025-01-16 11:49 | XMS_ITS | Encounter Summary ---
Author Organization [employer] ([place], [place], [place], [place]) Address [address] [place] [address] Care Team Providers Care Machine Hose Cutter Name Role Phone Mane Castro MD Primary Care Provider [phone] Encounter Details Date Type Department Care Team (Late st Contact Info) Description 09/16/2020 Transcribed Document [facility] [place] [address] [place] [address] ProviderRayna MD [address] [place], [place] [phone] Social History Tobacco Use Types Packs/Day Years [...] Polo MD - 09/16/2020 2:00 AM CDT Casserole Preparer Details Entered On: 09/16/2020 2:17 EDT Performed [...] filedocumented in this encounter Care Teams Machine Hose Cutter Relationship Specialty Start Date End Date Mane Castro MD [address] [place] [address] PCP - General Adolescent Medicine 05/04/22 documented as of this encounter
--- OUTSIDE RECORDS SUMMARY | 2025-01-16 11:49 | XMS_ITS | Encounter Summary ---
Author Organization [employer] ([place], [place], [place], [place]) Address [address] [place] [address] Care Team Providers Care Livestock Inspector Name Role Phone Mane Castro MD Primary Care Provider + [phone] Encounter Details Date Type Department Care Team (Late st Contact Info) Description 09/17/2020 Transcribed Document [facility] [place] Family Medicine [address] [place] [address] ProviderRayna MD [address] [place], [place] [address] Social History Tobacco Use Types Packs/Day Years [...] On: 09/17/2020 9:28 EDT by Lisa Overton, Leather Skinner [facility] Provider Status : EST Other Established Provider Name : MINESH CEE Patient Phone Number : [phone] Patient Insurance Type : Medicare Source of Referral : Case management Location of Patient : Case management referral Primary Care Scheduled : No Specialty Care Scheduled : Yes Specialty Type Scheduled1 : [facility] General Surgery [facility] General Surgery Provider Name : KATIUSKA IRELAND [facility] General Surgery Appointment Date/Time : 09/30/2020 14:30 EDT Qualify for Diabetes and/or Nutrition Referral : No Wound Care Appointment Made : No Why Patient Visited ED- Specialty spent : Other How Patient Arrived at ED : Other Primary Language : Mauritanian [facility] Comment : Patient needs follow up appointment. Called office and scheduled zoom appointment with Dr. Ireland Follow Up Needed : No Lisa Overton, Leather Skinner - 09/17/2020 9:28 EDT Electronically signed by [facility], [facility] Conversion Foreign Banknote Teller Cerner at 07/05/2022 8:54 AM CDT documented in this encounter Plan of Treatment Not on file documented as of this encounter Visit Diagnoses Not on filedocumented in this encounter Care Teams Livestock Inspector Relationship Specialty Start Date End Date Mane Castro MD [address] [place] [address] PCP - General Adolescent Medicine 05/04/22 documented as of this encounter
--- OUTSIDE RECORDS SUMMARY | 2025-01-16 11:49 | XMS_ITS | Encounter Summary ---
Author Organization Healthcare Address [address] [place] [address] Care Team Providers Care Counter Checker Name Role Phone Mane Castro MD Primary Care Provider [phone] Ese Barone APRN Primary Care Provider + [phone] Encounter Details Date Type Department Care Team (Late Contact Info) Description 02/19/2024 Orders Only External Location [address] [place] [address] Tamia Hernandez MD [address] [facility] [address] [place] [address] Social History Tobacco Use Types Packs/Day Years [...] [address] [place] [address] Garrett Galvin MD [address] [address] documented as of this encounter Procedures Procedure [...] documented as of this encounter Care Teams Counter Checker Relationship Specialty Start Date End Date Mane Castro MD [address] [place] [address] PCP - General Internal Medicine 11/23/23 12/03/24 Ese Barone APRN [address] [place] [address] PCP - General 12/04/24 documented as of this encounter
--- OUTSIDE RECORDS SUMMARY | 2025-01-16 11:49 | XMS_ITS | Encounter Summary ---
Author Organization [employer] ([place], [place], [place], [place]) Address [address] [place] [address] Care Team Providers Care Poultry Boner Name Role Phone Mane Castro MD Primary Care Provider [phone] Encounter Details Date Type Department Care Team (Late st Contact Info) Description 09/16/2020 Transcribed Document [facility] [place] Medicine [address] [place] [address] ProviderRayna MD [address] [place], [place] [address] Social History Tobacco Use Types Packs/Day Years [...] Health Plan: [employer] CHO[employer] PPO Policy Number: [id number] Authorization Number: NPR Insurance Primary Name : Health Plan: [employer] CHOICE PPO Policy Number: [id number] Authorization Status-Primary : No precert required Reference Number-Primary : NPR Authorized Service Begin Date-Primary : 09/15/2020 EDT Authorization Comments-Primary : NPR per [facility] notes Historical Authorization Comments-Primary : No Authorization Comments Found VISHAL HIGGINS, RN - 09/16/2020 11:53 EDT Electronically signed by [facility] Conversion Flatwork Finisher Hand Cerner at 07/05/2022 9:04 AM CDT documented in this encounter Plan of Treatment Not on file documented as of this encounter Visit Diagnoses Not on filedocumented in this encounter Care Teams Poultry Boner Relationship Specialty Start Date End Date Mane Castro MD [address] [place] [address] PCP - General Adolescent Medicine 05/04/22 documented as of this encounter
--- OUTSIDE RECORDS SUMMARY | 2025-01-16 11:49 | XMS_ITS | Encounter Summary ---
Author Organization [employer] ([place], [place], [place], [place]) Address [address] [place] [address] Care Team Providers Care Truck Body Builder Name Role Phone Mane Castro MD Primary Care Provider [phone] Encounter Details Date Type Department Care Team (Late st Contact Info) Description 09/17/2020 Transcribed Document [facility] [place] [address] [place] [address] ProviderRayna MD [address] [place], [place] [address] Social History Tobacco Use Types Packs/Day Years [...] 09/17/2020 10:47 EDT by Priscilla Mcneil Virtual embossing press operator Documentation Patient Disposition, General : Discharge Discharge [...] on filedocumented in this encounter Care Teams Truck Body Builder Relationship Specialty Start Date End Date Mane Castro MD [address] [place] [address] PCP - General Adolescent Medicine 05/04/22 documented as of this encounter
--- OUTSIDE RECORDS SUMMARY | 2025-01-16 11:49 | XMS_ITS | Encounter Summary ---
Author Organization [employer] ([place], [place], [place], [place]) Address [address] [place] [address] Care Team Providers Care Cafeteria Cook Name Role Phone Mane Castro MD Primary Care Provider [phone] Encounter Details Date Type Department Care Team (Late st Contact Info) Description 09/16/2020 Transcribed Document [facility] [place] Family Medicine [address] [place] [address] ProviderRayna MD [address] [place], [place] [address] Social History Tobacco Use Types Packs/Day Years [...] Health Plan: [employer] CHOICE PPO Policy Number: [id number] Authorization Number: NPR Insurance Primary Name : Health Plan: [employer] CHOICE PPO Policy Number: [id number] Authorization Status-Primary : No precert required Reference [...] on filedocumented in this encounter Care Teams Cafeteria Cook Relationship Specialty Start Date End Date Mane Castro MD [address] [place] [address] PCP - General Adolescent Medicine 05/04/22 documented as of this encounter
--- OUTSIDE RECORDS SUMMARY | 2025-01-16 11:49 | XMS_ITS | Clinical Summary ---
Author Organization [facility] Address [address] [place] [phone] Phone Care Team Providers Care Testing Projects Administrator Name Role Phone Chris SCHULTZ, Mialn Andrew [phone] [ ] Conditions or Problems Problem Name Problem Code Onset Date Status Entry Date Provider Comment Standard Description Annotate Diverticulitis of large intestine with perforation and abscess without bleeding K57.20 (ICD-10-C M) 04/24 Active 04/24 Laura Glez Diverticulitis of large intestine with perforation and abscess without bleeding Primary pulmonary HTN 73827701 (SNOMED CT) 04/24 Active 04/24 Laura Glez Pulmonary arterial hypertension Medications Medication Instructions Start Date Stop Date Generic Name [facility] Provider INVANZ 1 GM INJECTION SOLUTION RECONSTITUTED Invanz 1G IV Q24hrs- [facility] ERTAPENEM SODIUM [id number] Shilpa Murphy INVANZ 1 GM INJECTION SOLUTION RECONSTITUTED [facility]RT[facility] SODIUM [id number] Shilpa Murphy BUMETANIDE 1 MG TABS Take 1 tablet by mouth daily BUMETANIDE 45474246560 Dori Boss KETOROLAC TROMETHAMINE 10 MG TABS Take 1 tablet by mouth daily KETOROLAC TROMETHAMINE 04118047735 Dori Boss LEVOFLOXACIN 500 MG TABS Take 1 tablet by mouth daily LEVOFLOXACIN 22438732708 Dori Boss MELOXICAM 7.5 MG TABS Take 1 tablet by mouth daily MELOXICAM 11263451529 Dori Boss ONDANSETRON HCL 4 MG TABS Take 1 tablet by mouth daily ONDANSETRON HCL 11985872231 Dori Boss KLOR-CON M10 10 MEQ CR-TABS Take one (1) tablet by mouth twice a day POTASSIUM CHLORIDE HERMELINDA ER [id number] Dori Boss Medications Administered No information available. [...] Entry Date CPT-DC Discontinue IV antibiotics 2 CPT-97946 CMP CPT-52406 CBC w/o Differential CPT-DC Discontinue IV antibiotics 2 CPT- stat weekly Stat Weekly Labs CPT-wpc Weekly PICC Line Care 04/29 CPT-ca Continue IV antibiotics 2018 CPT-66403 CMP CPT-95221 CBC w/o Differential CPT-ca Continue IV antibiotics 2018 CPT- stat weekly Stat Weekly Labs CPT-ca Continue IV antibiotics 2018 CPT-cwl Weekly Labs (Continue) 02/22 CPT-68041 CMP CPT-57559 CBC w/o Differential CPT-ca Continue IV antibiotics [...]
--- OUTSIDE RECORDS SUMMARY | 2025-01-16 11:49 | XMS_ITS | Encounter Summary ---
Author Organization [employer] ([place], [place], [place], [place]) Address [address] [place] [address] Care Team Providers Care Health It Specialist Name Role Phone Mane Castro MD Primary Care Provider [phone] Encounter Details Date Type Department Care Team (Late st Contact Info) Description 09/17/2020 Transcribed Document [facility] [place] [address] [place] [address] ProviderRayna MD [address] [place], [place] [phone] Social History Tobacco Use Types Packs/Day Years [...] Polo MD - 09/17/2020 2:00 AM CDT Eye Dropper Assembler Details Entered On: 09/17/2020 3:24 EDT Performed [...] filedocumented in this encounter Care Teams Health It Specialist Relationship Specialty Start Date End Date Mane Castro MD [address] [place] [address] PCP - General Adolescent Medicine 05/04/22 documented as of this encounter
--- OUTSIDE RECORDS SUMMARY | 2025-01-16 11:49 | XMS_ITS | Encounter Summary ---
Author Organization [employer] ([place], [place], [place], [place]) Address [address] [place] [address] Care Team Providers Care Superintendent Terminal Name Role Phone Mane Castro MD Primary Care Provider [phone] Encounter Details Date Type Department Care Team (Late st Contact Info) Description 09/15/2020 Transcribed Document [facility] [place] Family Medicine [address] [place] [address] ProviderRayna MD [address] [place], [place] [address] Social History Tobacco Use Types Packs/Day Years [...] on filedocumented in this encounter Care Teams Superintendent Terminal Relationship Specialty Start Date End Date Mane Castro MD [address] [place] [address] PCP - General Adolescent Medicine 05/04/22 documented as of this encounter
--- OUTSIDE RECORDS SUMMARY | 2025-01-16 11:49 | XMS_ITS | Encounter Summary ---
Author Organization [employer] ([place], [place], [place], [place]) Address [address] [place] [address] Care Team Providers Care Credit Control Officer Name Role Phone Mane Castro MD Primary Care Provider + [phone] Encounter Details Date Type Department Care Team (Late st Contact Info) Description 09/17/2020 Transcribed Document [facility] [place] Family Medicine [address] [place] [address] ProviderRayna MD [address] [place], [place] [phone] Social History Tobacco Use Types Packs/Day Years [...] EDT Electronically signed by Rebecca Villanueva Conversion Seed Corn Production Manager Cerner at 07/05/2022 9:04 AM CDT documented in this encounter Plan of Treatment Not on file documented as of this encounter Visit Diagnoses Not on filedocumented in this encounter Care Teams Credit Control Officer Relationship Specialty Start Date End Date Mane Castro MD [address] [place] [address] PCP - General Adolescent Medicine 05/04/22 documented as of this encounter
--- OUTSIDE RECORDS SUMMARY | 2025-01-16 11:49 | XMS_ITS | Encounter Summary ---
Author Organization [employer] ([place], [place], [place], [place]) Address [address] [place] [address] Care Team Providers Care Elevator Constructor Supervisor Name Role Phone Mane Castro MD Primary Care Provider + [phone] Encounter Details Date Type Department Care Team (Late st Contact Info) Description 09/17/[address] [facility] [place] [facility] [place] [address] ProviderRayna MD [address] [place], [place] [phone] Social History Tobacco Use Types Packs/Day Years [...] if you see any changes. ??? Take yqim-gsz-uaphfyk and prescription medicines only as told by [...] provider. Document Revised: 04/07/2018 Document Reviewed: 12/06/2017 [employer] Patient Education ? 2020 [employer]. Laparoscopic Inguinal Hernia Repair, Adult Laparoscopic inguinal [...] including vitamins, herbs, eye drops, creams, and yyyf-tra-mttcedy medicines. ??? Any problems you or family [...] diabetes medicines or blood thinners. ? Taking gphp-lnb-argvhvs medicines, vitamins, herbs, and supplements. ? Taking [...] provider. Document Revised: 08/14/2019 Document Reviewed: 06/15/2017 [employer] Patient Education ? 2019 [employer] Laparoscopic Inguinal Hernia Repair, Adult, Care [...] and water are not available, use hand cadmium liquor maker. ? Change your dressing as told by [...] allowed to take sponge baths. ??? Take xxyl-waz-mwcxwka and prescription medicines only as told by your health care provider. ??? To prevent or treat constipation while you are taking prescription pain medicine, your health care provider may recommend that you: ? Drink enough fluid to keep your urine pale yellow. ? Take meny-bgd-vrmyyyg or prescription medicines. ? Eat foods that [...] provider. Document Revised: 08/14/2019 Document Reviewed: 06/15/2017 [employer] Patient Education ? 2020 [employer] documented in this encounter Plan of Treatment Not on file documented as of this encounter Visit Diagnoses Not on filedocumented in this encounter Care Teams Elevator Constructor Supervisor Relationship Specialty Start Date End Date Mane Castro MD [address] [place] [address] PCP - General Adolescent Medicine 05/04/22 documented as of this encounter
--- OUTSIDE RECORDS SUMMARY | 2025-01-16 11:49 | XMS_ITS | Encounter Summary ---
Author Organization [employer] ([place], [place], [place], [place]) Address [address] [place] [address] Care Team Providers Care Fleet Manager Name Role Phone Mane Castro MD Primary Care Provider [phone] Encounter Details Date Type Department Care Team (Late st Contact Info) Description 09/16/2020 Transcribed Document [facility] [place] [address] [place] [address] ProviderRayna MD [address] [place], [place] [phone] Social History Tobacco Use Types Packs/Day Years [...] on filedocumented in this encounter Care Teams Fleet Manager Relationship Specialty Start Date End Date Mane Castro MD [address] [place] [address] PCP - General Adolescent Medicine 05/04/22 documented as of this encounter
--- OUTSIDE RECORDS SUMMARY | 2025-01-16 11:49 | XMS_ITS | Encounter Summary ---
Author Organization [employer] ([place], [place], [place], [place]) Address [address] [place] [address] Care Team Providers Care Tattoo Technician Name Role Phone Mane Castro MD Primary Care Provider [phone] Encounter Details Date Type Department Care Team (Late st Contact Info) Description 09/15/2020 Transcribed Document [facility] [place] Family Medicine [address] [place] [address] ProviderRayna MD [address] [place], [place] [address] Social History Tobacco Use Types Packs/Day Years [...] Ambulatory Legal Guardian : Spouse Support Person/Patient Heliotherapist : Yes Support Person/Pt Rep Name : Lewis Yin - Support Person/Pt Rep Contact Information : [phone] Want Family/Rep/Phys Notified of Admit : No Emergency Contact #1 : `Lewis Yin Emergency Contact #1 Phone Number : `[phone] Emergency Contact #1 Relationship : ` Emergency Contact #2 : ` Emergency Contact #2 Phone Number : ` Emergency Contact #2 Relationship : ` Information Obtained From : Patient Primary Language : Romanian Communication Barrier : None Welder Manufacture Needed : No ANTWAN REGALADO RN - [...] Scale Risk Level : 25-45 Medium Risk [place] Fall Interventions : Adequate lighting, Personal items within reach ANTWAN REGALADO RN - 09/15/2020 13:34 EDT Health Histories Smoking Status : Former smoker, quit more than 30 days ago Smokeless Tobacco Status : Never Implant/Device Type, Acoustic Warfare Analyst and Model : dental bridge ANTWAN REGALADO [...] Source : Measured Height Entry Format : [place] Height, Feet : 5 ft(Converted to: 152 cm, 60 Inch) Height, Inches : 7.5 Inch(Converted to: 0 ft 8 Inch, 19.05 cm) Clinical Height : 171.45 cm Weight Source : Standing scale Weight Entry Format : [place] Clinical Dosing Weight : 111.36 kg Weight, Pounds : 245 lb Body Surface Area (BSA) : 2.22 m2 Body Mass Index : 37.9 kg/m2 (HI) [place] Body Weight : 62 kg ANTWAN REGALADO [...] ANTWAN REGALADO RN - 09/15/2020 13:34 EDT [place] Suicide Severity Rating Scale (C-SSRS) CSSRS Past [...] on filedocumented in this encounter Care Teams Tattoo Technician Relationship Specialty Start Date End Date Mane Castro MD [address] [place] [address] PCP - General Adolescent Medicine 05/04/22 documented as of this encounter
--- OUTSIDE RECORDS SUMMARY | 2025-01-16 11:49 | XMS_ITS | Encounter Summary ---
Author Organization [employer] ([place], [place], [place], [place]) Address [address] [place] [address] Care Team Providers Care Sales Stock Associate Name Role Phone Mane Castro MD Primary Care Provider [phone] Encounter Details Date Type Department Care Team (Late st Contact Info) Description 09/15/2020 Transcribed Document [facility] [place] Family Medicine [address] [place] [address] ProviderRayna MD [address] [place], [place] [phone] Social History Tobacco Use Types Packs/Day Years [...] Polo MD - 09/15/2020 9:58 AM CDT [facility] Main OR PACU Summary Primary Physician: KATIUSKA POLANCO MD-SUR Finalized Date/Time: 09/15/20 13:17:38 Pt. Name: EARNEST YIN/Sex: 1950 Female Med Rec #: [id number] Physician: KATIUSKA POLANCO MD-SUR Financial #: [id number] Pt. Type: O Room/Bed: ASA/7 Admit/Disch: 09/15/20 08:13:00 - Institution: [facility] Main OR PACU I Case Times Entry 1 In PACU I 09/15/20 11:18:00 Ready for PACU 09/15/20 13:17:00 Discharge Discharge from PACU 09/15/20 13:17:00 I Last Modified By: SOPHIA KHAN RN 09/15/20 13:17:23 [facility] Main OR PACU I Case Times Audit 09/15/20 13:17:23 Transportation Clerk: PEBBLES Modifier: BILLMY <+> 1 Ready for PACU Discharge <+> 1 Discharge from PACU I Finalized By: SOPHIA KHAN, RN Document Signatures Signed By: SOPHIA KHAN RN 09/15/20 13:17 Electronically signed by [facility] Conversion Rivet Hole Puncher Cerner at 07/05/2022 8:50 AM CDT documented in this encounter Plan of Treatment Not on file documented as of this encounter Visit Diagnoses Not on filedocumented in this encounter Care Teams Sales Stock Associate Relationship Specialty Start Date End Date Mane Castro MD [address] [place] [address] PCP - General Adolescent Medicine 05/04/22 documented as of this encounter
--- OUTSIDE RECORDS SUMMARY | 2025-01-16 11:49 | XMS_ITS | Encounter Summary ---
Author Organization [facility] [employer] ([place], [place], [place], [place]) Address [address] [place] [address] Care Team Providers Care Disability Insurance Claim Examiner Name Role Phone Mane Castro MD Primary Care Provider [phone] Encounter Details Date Type Department Care Team (Late st Contact Info) Description 09/15/2020 Transcribed Document [facility] [place] Family Medicine [address] [place] [address] ProviderRayna MD [address] [place], [place] [id number] Social History Tobacco Use Types Packs/Day Years [...] Source : Measured Height Entry Format : [place]ena Height, Feet : 5 ft(Converted to: 152 cm, 60 Inch) Height, Inches : 7.5 Inch(Converted to: 0 ft 8 Inch, 19.05 cm) Clinical Height : 171.45 cm Weight Source : Standing scale Weight Entry Format : [place]ena Clinical Dosing Weight : 111.36 kg Weight, Pounds : 245 lb Body Surface Area (BSA) : 2.22 m2 Body Mass Index : 37.9 kg/m2 (HI) [place] Body Weight : 62 kg VI Singh, RN - 09/15/2020 8:29 EDT documented in this encounter Plan of Treatment Not on file documented as of this encounter Visit Diagnoses Not on filedocumented in this encounter Care Teams Disability Insurance Claim Examiner Relationship Specialty Start Date End Date Mane Castro MD [address] [place] [address] PCP - General Adolescent Medicine 05/04/22 documented as of this encounter
--- OUTSIDE RECORDS SUMMARY | 2025-01-16 11:49 | XMS_ITS | Encounter Summary ---
Author Organization [employer] ([place], [place], [place], [place]) Address [address] [place] [address] Care Team Providers Care Maintenance Craftsman Name Role Phone Mane Castro MD Primary Care Provider + [phone] Encounter Details Date Type Department Care Team (Late st Contact Info) Description 09/17/2020 Transcribed Document [facility] [place] Family Medicine [address] [place] [address] ProviderRayna MD [address] [place], [place] [id number] Social History Tobacco Use Types Packs/Day Years [...] filedocumented in this encounter Care Teams Maintenance Craftsman Relationship Specialty Start Date End Date Mane Castro MD [address] [place] [address] PCP - General Adolescent Medicine 05/04/22 documented as of this encounter
--- OUTSIDE RECORDS SUMMARY | 2025-01-16 11:49 | XMS_ITS | Encounter Summary ---
Author Organization [employer] ([place], [place]) Address [address] [place] [address] Care Team Providers Care J2Ee Java Developer Name Role Phone Mane Castro MD Primary Care Provider [phone] Encounter Details Date Type Department Care Team (Late st Contact Info) Description 09/15/2020 Transcribed Document [facility] [place] [facility] [place] [address] ProviderRayna MD [address] [place] [id number] Social History Tobacco Use Types Packs/Day Years [...] repair of incarcerated incisional hernia with mesh. HOT DIP GALVANIZER: Juan Coelho. ANESTHESIA: General endotracheal. INDICATIONS: Mohinder [...] taken to recovery room in stable condition. /[id number] MD TING Pope/AMY / Sis / SHANIL /[id number] Electronically signed by Rebecca Villanueva Conversion Intellectual Property Paralegal Cerner at 07/05/2022 9:04 AM CDT documented in this encounter Plan of Treatment Not on file documented as of this encounter Visit Diagnoses Not on filedocumented in this encounter Care Teams J2Ee Java Developer Relationship Specialty Start Date End Date Mane Castro MD [address] [place] [address] PCP - General Adolescent Medicine 05/04/22 documented as of this encounter
--- OUTSIDE RECORDS SUMMARY | 2025-01-16 11:49 | XMS_ITS | Encounter Summary ---
Author Organization [facility] Address [address] [place] [address] Care Team Providers Care Assembler Caterpillar Spider Name Role Phone Mane Castro MD Primary Care Provider [phone] Ese Barone APRN Primary Care Provider + [phone] Encounter Details Date Type Department Care Team (Late Contact Info) Description 02/19/2024 Orders Only External Location [address] [place] [address] Tamia Hernandez MD [address] [facility] [address] [place] [address] Social History Tobacco Use Types Packs/Day Years [...] Visit [facility] [address], [address] [place] [address] aGrrett Galvin MD [address] [phone] documented as of this encounter Procedures Procedure [...] documented as of this encounter Care Teams Assembler Caterpillar Spider Relationship Specialty Start Date End Date Mane Castro MD [address] [place] [address] PCP - General Internal Medicine 11/23/23 12/03/24 Ese Barone APRN [address] [place] [address] PCP - General 12/04/24 documented as of this encounter
--- OUTSIDE RECORDS SUMMARY | 2025-01-16 11:49 | XMS_ITS | Encounter Summary ---
Author Organization [facility] Address [address] [place] [address] Care Team Providers Care Butcher Scullion Name Role Phone Maen Castro MD Primary Care Provider [phone] Ese Barone APRN Primary Care Provider [phone] Encounter Details Date Type Department Care Team (Late Contact Info) Description 08/21/2023 Orders Only External Location [address] [place] [address] Provider, External Social History Tobacco Use Types [...] Description 06/04/2025 11:00 AM EDT Office Visit [facility] General Surgery [address], [address] [place] [address] Garrett Gavlin MD [address] [place] [address] documented as of this encounter Procedures Procedure [...] on filedocumented in this encounter Care Teams Butcher Scullion Relationship Specialty Start Date End Date Mane Castro MD [address] [facility] [address] [address] PCP - General Internal Medicine 11/23/23 12/03/24 Ese Barone APRN [address] [place] [address] PCP - General 12/04/24 documented as of this encounter
--- OUTSIDE RECORDS SUMMARY | 2025-01-16 11:49 | XMS_ITS | Encounter Summary ---
Author Organization [employer] ([place], [place], [place], [place]) Address [address] [place] [address] Care Team Providers Care Commercial Center Manager Name Role Phone Mane Castro MD Primary Care Provider [phone] Encounter Details Date Type Department Care Team (Late st Contact Info) Description 09/15/2020 Transcribed Document [facility] [place] Family Medicine [address] [place] [address] ProviderRayna MD [address] [place], [place] [address] Social History Tobacco Use Types Packs/Day Years [...] form. Electronically signed by Rebecca Villanueva Conversion Compensation Administrator Cerner at 07/10/2022 1:09 PM CDT documented in this encounter Plan of Treatment Not on file documented as of this encounter Visit Diagnoses Not on filedocumented in this encounter Care Teams Commercial Center Manager Relationship Specialty Start Date End Date Mane Castro MD [address] [place] [address] PCP - General Adolescent Medicine 05/04/22 documented as of this encounter
--- OUTSIDE RECORDS SUMMARY | 2025-01-16 11:49 | XMS_ITS | Clinical Summary ---
Author Organization [facility] Address [address] [place] [address] Care Team Providers Care Automotive Painter Name Role Phone Ese Barone ENRIQUE Primary Care Provider [phone] Allergies Active Allergy Reactions Criticality Noted Date [...] Description 12/04/2024 11:00 AM EDT Office Visit [facility] General Surgery [address], [facility] [place] [phone] Garrett Galvin MD Personal history of nutritional deficiency (Primary Dx); Recurrent incisional hernia 12/04/2024 Travel 11/25/2024 Telephone [facility] General Surgery [address], [facility] [place] [address] Erica Alicea, CAN FILLER 11/04/2024 Telephone [facility] General Surgery [address], [facility] [place] [address] Erica Alicea, CAN FILLER 10/23/2024 Telephone [facility] General Surgery [address], [facility] [place] [phone] Erica Alicea, CAN FILLER from Last 3 Months Family History Medical [...] Description 06/04/2025 11:00 AM EDT Office Visit [facility] General Surgery [address], [address] [place] [address] Garrett Galvin MD [address] [address] Health Maintenance Due Date Last Done Comments [facility]-Bone Density Scan 1950 [facility]-Hepatitis C Screening 1950 [facility]-Medicare Annual Wellness (AWV) 1950 [facility]-/Child/Adol SDOH Screenings 1950 Diabetes: Dental Exam 1961 [facility]- SDOH Screenings 1969 [facility]-Adult SDOH Screenings 1969 [facility]-Diabetes: Hemoglobin A1C 11/03/2019 05/06/2019 [facility]-Breast Cancer Screening 07/05/202406/18, 04/05/2022, 01/24/2022, Additional history exists [id number] Vaccine ( season) 2024 12/07/2023, 07/20/2021, 12/16/2020, [...] complete this topic Insurance Janene YOUNGASPEN Arellano [id number] [facility] MEDICARE Care Teams Automotive Painter Relationship Specialty Start Date End Date Ese Barone APRN [address] [place] [address] PCP - General 12/04/24
--- OUTSIDE RECORDS SUMMARY | 2025-01-16 11:49 | XMS_ITS | Clinical Summary ---
Author Organization [employer] ([place], [place], [place], [place]) Address [address] [place] [address] Care Team Providers Care Can Piler Name Role Phone Mane Castro MD Primary Care Provider [phone] Allergies Active Allergy Reactions Criticality Noted Date [...] Date Dipak rded Speak language other than French at home Not on file 04/01/2023 Want [...] 10/15/2018, 2016 Medical Devices Implanted Type Area Chief Creative Officer Device Identifier Shelf Expiration Date Model / Serial / Lot Mesh Vntrlght Cir Echo 2 15cm [id number] - [id number] Implanted:Qt y: 1 on 01/24/2023 by Garrett Ireland MD at [facility] IMPLANTS N/A: Abdomen CR BARD:DAVOL 08/15/2023 [id number] / / [id number] Cement Bone Smplx Hv 6194-1-001 - [id number] Implanted:Qt y: 2 on 07/19/2023 at [facility] IMPLANTS Left: Knee GLENYS:STRYKE R [employer] [id number] 11/17/2024 6194-1-00 1 / / [id number] E Tib Cemented L Sz E 18-3123-138- 01 - [id number] Implanted:Qt y: 1 on 07/19/2023 at [facility] IMPLANTS Left: Knee LANETTE:LANETTE [id number] 05/01/2033 42-5320-0 71- / / [id number] Psn Asf Mc 14mm Ve 8-11ef 18-7715-022- 14 - [id number] Implanted:Qt y: 1 on 07/19/2023 at [facility] TOTAL JOINT CONSTRUCT Left: Knee LANETTE:LANETTE [id number] 02/09/2028 42-5121-0 08-14 / [id number] Psn Fem Cr Cmt Ccr Nrw Sz 8 L 28-7727-891- 01 - [id number] Implanted:Qt y: 1 on 07/19/2023 at [facility] TOTAL JOINT CONSTRUCT Left: Knee LANETTE:LANETTE [place] [id number] 05/21/2033 42-5020-0 64-01 / / [id number] Insurance [facility] MEDICARE PPO Advance Directives For more information, please contact: [phone] * Full Code (Latest Code Status on [...] ACLS medications, or cardioversion as indicated. Call BROADCAST ENGINEER * Full Code Date Activated Date Inactivated Comments 01/24/2023 6:36 AM 01/24/2023 11:53 AM Care Teams Can Piler Relationship Specialty Start Date End Date Mane Castro MD [address] [place] [address] PCP - General Adolescent Medicine 05/04/22
--- OUTSIDE RECORDS SUMMARY | 2025-01-16 11:49 | XMS_ITS | Encounter Summary ---
Author Organization [facility] Address [address] [place] [address] Care Team Providers Care Wrapping Clerk Name Role Phone Mane Castro MD Primary Care Provider [phone] Ese Barone APRN Primary Care Provider [phone] Reason for Referral * Consultation (Routine) - Closed Specialty Diagnoses / Procedures Referred By Contac jose Referred To Contact General, Endocrine & Minimally Invasive Surgery / General Surgery Diagnoses Incisional hernia, without obstruction or gangrene Ese Barone, YEAST CULTURE DEVELOPER [address] [address] Phone: tel: fax: Referral ID Status Reason Start Date Expiration Date V isits Requested Visits Authorized [id number] Closed Specialty Services Required 06/27/2023 12/26/2024 1 1 Encounter Details Date Type Department Care Team (Late st Contact Info) Description 06/27/2023 Community [facility] [address] [place] [address] Ese Barone, YEAST CULTURE DEVELOPER [address] [place] [address] Incisional hernia, without obstruction or gangrene (Primary [...] Description 06/04/2025 11:00 AM EDT Office Visit [facility] General Surgery [address], [address]st [place] [address] Garrett Galvin MD [address] [facility] [address] [place] [address] Scheduled Referrals Name Type Priority Associated Diagnoses Orde r Schedule Ambulatory Referral to General Surgery ([facility]) Outpatient Referral Routine Incisional hernia, without obstruction or gangrene Expected: 06/27/2023 (Approximate), Expires: 12/26/2024 documented as of this encounter Visit Diagnoses Diagnosis Incisional hernia, without obstruction or gangrene- Primary documented in this encounter Care Teams Wrapping Clerk Relationship Specialty Start Date End Date Mane Castro MD [address] [facility] [address] [place] [address] PCP - General Internal Medicine 11/23/23 12/03/24 Ese Barone APRN [address] [place] [address] PCP - General 12/04/24 documented as of this encounter
--- OUTSIDE RECORDS SUMMARY | 2025-01-16 11:49 | XMS_ITS | Encounter Summary ---
Author Organization [employer] ([place], [place], [place], [place]) Address [address] [place] [address] Care Team Providers Care Registered Dental Assistant Rda Name Role Phone Mane Castro MD Primary Care Provider [phone] Encounter Details Date Type Department Care Team (Late st Contact Info) Description 09/17/2020 Transcribed Document [facility] [place] Family Medicine [address] [place] [address] ProviderRayna MD [address] [place], [place] [address] Social History Tobacco Use Types Packs/Day Years [...] On: 09/17/2020 10:03 EDT by JOANN PEACOCK RN-Medical Appointment Scheduler Final Discharge Planning Discharge Arrangements : Patient [...] : Yes Discharge To Care Management : Home/Residential/Residential or Self Care -01 JOANN PEACOCK RN-Medical Appointment Scheduler - 09/17/2020 10:03 EDT Final Narrative Note Final Narrative Note : Discharged to home, agreeable. No needs noted at this time. JOANN PEACOCK RN-Medical Appointment Scheduler - 09/17/2020 10:03 EDT Electronically signed by Rich [facility] Conversion Nail Polish Brush Machine Feeder Cerner at 07/05/2022 8:53 AM CDT documented in this encounter Plan of Treatment Not on file documented as of this encounter Visit Diagnoses Not on filedocumented in this encounter Care Teams Registered Dental Assistant Rda Relationship Specialty Start Date End Date Mane Castro MD [address] [place] [address] PCP - General Adolescent Medicine 05/04/22 documented as of this encounter
--- OUTSIDE RECORDS SUMMARY | 2025-01-16 11:49 | XMS_ITS | Encounter Summary ---
Author Organization [employer] ([place], [place], [place], [place]) Address [address] [place] [address] Care Team Providers Care Chiropractor Assistant Name Role Phone Mane Castro MD Primary Care Provider [phone] Encounter Details Date Type Department Care Team (Late st Contact Info) Description 09/15/2020 Transcribed Document [facility] [place] [address] [place] [address] ProviderRayna MD [address] [place], [place] [id number] Social History Tobacco Use Types Packs/Day Years [...] KHAN RN Intervention Information: HYDROmorphone Performed by SOPIHA KHAN RN on 09/15/2020 12:13:00 EDT HYDROmorphone,0.5mg [...] of the form. Electronically signed by Rich, [facility] Conversion Java Websphere Developer Cerner at 07/05/2022 9:11 AM CDT documented in this encounter Plan of Treatment Not on file documented as of this encounter Visit Diagnoses Not on filedocumented in this encounter Care Teams Chiropractor Assistant Relationship Specialty Start Date End Date Mane Castro MD [address] [place] [address] PCP - General Adolescent Medicine 05/04/22 documented as of this encounter
--- OUTSIDE RECORDS SUMMARY | 2025-01-16 11:49 | XMS_ITS | Encounter Summary ---
Author Organization [employer] ([place], [place], [place]) Address [address] [place] [address] Care Team Providers Care Rehab Assistant Name Role Phone Mane Castro MD Primary Care Provider [phone] Encounter Details Date Type Department Care Team (Late st Contact Info) Description 09/15/2020 Transcribed Document [facility] [place] [address] [place] [address] ProviderRayna MD [address] [place], [place] [id number] Social History Tobacco Use Types Packs/Day Years [...] Polo MD - 09/15/2020 9:58 AM CDT [facility] Main OR Preop Summary Primary Physician: KATIUSKA POLANCO MD-SUR Finalized Date/Time: 09/15/20 12:35:08 Pt. Name: EARNEST YIN/Sex: 1950 Female Med Rec #: [id number] Physician: KATIUSKA POLANCO MD-SUR Financial #: [id number] Pt. Type: O Room/Bed: ASA/7 Admit/Disch: 09/15/20 08:13:00 - Institution: [facility] PreOp Case Times Entry 1 In Preop 09/15/20 08:24:00 Ready for Holding n/a Room Patient Ready for 09/15/20 09:03:00 Surgery Patient Out of Preop 09/15/20 09:30:00 Patient Out of n/a Holding Room Last Modified By: PETE MEDLEY RN 09/15/20 12:35:03 [facility] PreOp Case Times Audit 09/15/20 12:35:03 Agricultural Engineering Technicians: WILSONDL Modifier: MCGRANM <+> 1 Patient Out of Preop 09/15/20 09:03:34 Agricultural Engineering Technicians: NAFISA Modifier: WILSONDL <+> 1 Patient Ready for Surgery Finalized By: PETE MEDLEY RN Document Signatures Signed By: PETE MEDLEY RN 09/15/20 12:35 Electronically signed by Rich [facility] Conversion Low Heel Builder Cerner at 07/05/2022 8:57 AM CDT documented in this encounter Plan of Treatment Not on file documented as of this encounter Visit Diagnoses Not on filedocumented in this encounter Care Teams Rehab Assistant Relationship Specialty Start Date End Date Mane Castro MD [address] [place] [address] PCP - General Adolescent Medicine 05/04/22 documented as of this encounter
--- OUTSIDE RECORDS SUMMARY | 2025-01-16 11:49 | XMS_ITS | Data Portability ---
Author Organization [facility] Address [address] [place] [address] Care Team Providers Care Slurry Blender Name Role Phone HIEU CAROLINA Referring Provider ROD YANEZ Primary Care Provider KEVIN CARVALHO Orthopedic Surgeon Assessment No assessment recorded. Plan of Treatment Reminders Order Date Submit Date Provider Last Modified By Organization Details Last Modified Time Details Appointments None recorded. Lab None recorded. Referral physical therapist referral 2023 024 [facility], [address] [place] [address] , [place], [address], 4 14:15:29 Procedures None recorded. Surgeries None [...] knee, 4 or more view Khad[place]ah [place] [facility] [place] [address] [place] [address] Patien t Name: JERRY Baez CHRISTEN ER [...] Sharmin low MD on 024 10:30 AM [email or web address] [facility] [place] [address], [place], [address], 06/30/2023 12:43:19 06/30/19 24 06/30/2023 XR, joint , multi ple, 1 view [facility] [place] [address] [place] [address] Patien t Name: JERRY VELÁSQUEZ ER Patipadmini [...] Sharmin low MD on 12:35 PM [email or web address] [facility] [place] [address] , [place], [address], 07/01/2023 20:48:30 08/09/19 24 08/09/2023 XR, knee, 3 view [facility] [address] [place] [address] Patipadmini t Name: JERRY Muniz t : [...] Sharmin low MD on 11:55 AM [email or web address] [facility] [address] , [place], [address], 08/09/2023 12:38:43 09/27/19 24 09/27/2023 XR, knee, 3 view [facility] candelario [facility] [address] [place] [address] Patipadmini t Name: JERRY Muniz t : [...] ing. Interp reted By: Sharmin low MD [facility] onical ly Signed By: Sharmin low MD on 024 10:16 AM [email or web address] [facility] [place] [address] , [place], [address], 09/27/2023 10:46:03 07/06/19 25 07/05/2024 XR, knee, [address] [facility] [address] [place] [address] [phone] Patipadmini t Name: JERRY VELÁSQUEZ ER Patipadmini [...] knee. Interp reted By: Sharmin low MD [facility] onical ly Signed By: Sharmin low MD on 025 3:36 PM [email or web address] [facility] [place] [address] , [place], [address], 07/15/2024 13:22:35 Result Notes Documentation Provider Name and Address Organization Details Recorded Time Xr, Knee, 3 View : [facility] [place] [address] [place] [address] Patient Name: EARNEST YIN Patient : 1950 [...] By: Leonardo Taylor MD THI SCHMITT PA-C [address] [place] [address], [address], [facility] 08/09/2023 12:38:43 Xr, Knee, 3 View : [facility] [address] [place] [address] Patient Name: EARNEST YIN Patient : 1950 [...] Leonardo Taylor MD LIA SAWANT PA-C [address] [place], [address], [facility] 09/27/2023 10:46:03 Xr, Knee, 4 Or More View : [facility] [address] [place] [address] Patient Name: EARNEST YIN Patient : 1950 [...] By: Leonardo Taylor MD LANA BEAN PA-C [address] [place] [address], [address], [facility] 07/15/2024 13:22:35 Problems Name Problem SNOMED Code Status Onset Date Resolution Date Notes Provider Name and Address Organization Details Recorded Time History of major abdominal surgery 527780104 Active 2023 HIEU BEACH MD [address] [place] [address], [phone], [facility] 4 16:51:37 Type 2 diabetes mellitus without complicatio n 331528326 Active 2023 HIEU BEACH MD [address] [place] [address], [address], [facility] 4 16:51:38 Osteoarthri tis of left knee joint 9131200131328 09 Active 2023 HIEU BEACH MD [address] [place] [address], [address], [facility] 4 16:51:39 Problem Notes None recorded. Procedures Surgical History Date Name Laterality Status Provider Name and Address Organization Details Recorded Time 12/04/19 25 Injection - Joint/Bursa, Parvez completed SVETLANA BEAN PA-C [address] [place] [address], [address], [facility] 12/04/2024 10:55:10 07/06/19 25 Injection - Joint/Bursa, Parvez BEAN PA-C [address] [place] [address], [place], [address], [facility] 07/05/2024 16:43:35 09/27/19 24 Injection - Joint/Bursa, Major completed CAMELIA SAWANT PA-C [address] [place], [address], [facility] 09/27/2023 10:44:43 07/19/19 24 total replacement of left knee joint completed Magi Niño [facility] 08/09/2023 11:29:28 07/13/19 24 PCM Visit completed Sin Trinidad [facility] 07/17/2023 10:52:34 04/26/19 24 Injection - Joint/Bursa, Major completed SVETLANA BEAN PA-C [address] [place], [address], [facility] 04/26/2023 10:10:20 12/13/19 23 Injection - Joint/Bursa, Major completed SVETLANA BEAN PA-C [address] [place], [address], [facility] 12/12/2022 13:44:08 07/08/19 23 Injection - Joint/Bursa, Major completed SVETLANA BEAN PA-C [address] [place], [address], [facility] 07/26/2022 14:42:55 08/19/19 22 Injection - Joint/Bursa, Major completed KEVIN CARVALHO MD [address] [place], [address], [facility] 08/18/2021 09:11:40 laminectomy completed Magi Niño [facility] 08/18/2021 08:44:04 cholecystectomy completed Magieula Niño [facility] 08/18/2021 08:44:11 Unlisted ariana pagan's [email or web address] completed Magi Salinas [facility] 08/18/2021 08:44:33 Imaging Results None recorded. Procedure Notes None recorded. Medical Equipment None Reported. Allergies Allergen ID Allergen Name Allergen Category Reaction Reaction Severity Criticality Documentation Date Start Date Code Code System Note Provider Name and Address Organization Details Recorded Time 394371 Product containin g penicilli n (product) medicatio n Not available Not available Not available 08/18/2021 73991 8001 SNOMED Magi Niño [facility] 2 08:40:20 870748 Lasix medicatio n Not available Not available Not available 08/18/2021 79341 1 RxNorm Magi Niño [facility] 2 08:40:24 333345 losartan medicatio n Not available Not available Not available 08/18/2021 57983 RxNorm Magi Niño [facility] 2 08:40:30 Medications Name Sig [...] Updated DateTime 07/05/2024 170.18 cm 34.5 kg/m2 70844.32 g 5 Gela Mockdianna [facility] 07/05/2024 14:23:45 Date Recorded Body height Body mass index (BMI) Body weight Pain severity - 0-10 verbal numeric rating [Score] - Reported Provider Name and Address Organization Details Last Updated DateTime 08/09/2023 170.18 cm 38.4 kg/m2 350597.13 g 1 Magi Niño [facility] 08/09/2023 11:45:12 Date Recorded Body height Body mass index (BMI) Body weight Provider Name and Address Organization Details Last Updated DateTime 09/27/2023 170.18 cm 38.4 kg/m2 086872.13 g Kevin Sierra Ramon [facility] 09/27/2023 10:26:53 Social History Question Answer Notes LastModified by Chlorogen Details LastModified Time Tobacco Smoking Status Never Smoker Magi Niño [facility] 08/18/2021 08:43:35 What Is Your Level Of Caffeine Consumption? Moderate [email or web address] Information not available 08/18/2021 What Was The Date Of Your Most Recent Tobacco Screening? 08/09/2023 [email or web address] Information not available 08/09/2023 What Is Your Relationship Status? [email or web address] Information not available 08/18/2021 Has Tobacco Cessation Counseling Been Provided? No [email or web address] Information not available 08/18/2021 Sex: Female Functional Status Question Answer Note LastModified by Organizat ion Details LastModified Time Do you use any illicit or recreational drugs? No [email or web address] Information not available 08/18/2021 Do you or have you ever used any other forms of tobacco or nicotine? No [email or web address] Information not available 08/18/2021 What is your level of alcohol consumption? None [email or web address] Information not available 08/18/2021 Are you currently employed? No retired [email or web address] Information not available 08/18/2021 Mental Status None recorded. Family History Relationship Description Onset Age of this Age Resolved Age Notes LastModified by Organization Details LastModified Time Father No current problems or disability [email or web address] Not available 03/2021 08:43:19 Mother No current problems or disability [email or web address] Not available 03/2021 08:43:19 Medical History Condition Response Allergies/Hayfever N Other Y Gout N Anxiety/Depression Y Thyroid Disease N Kidney Stones N Heart Conditions N Hernia N Migraines N Glaucoma N COPD N Pneumonia N Skin Problems N Immune System Disorder N Anesthesia Complications N Heart Attack (HI) N Mental Illness N Neurological Problems N [...] ICD10 Code Diagnosis IMO Codes Diagnosis Note [id number] [facility] [address] 06/20/2016 22:53:34 06/20/2016 22:53:34 [id number] ABRAN WAGNER APRN CARDIOLOG Y [address] ,[address] [place] [address] 10/24/2016 11:22:00 10/25/2016 12:07:56 Palpitations 71087231 R00.2 EKG today reveals NSR, 62 QT/QTc 398/403. Palpitatio ns improved after smoking cessation. Will check TSH today as she states that has not been done in a year. No further testing recommende d. If palpitatio ns return or worsen, recommend 24 hour Holter monitor for evaluation of rate and rhythm. Pulmonary hypertension 50169923 I27.2 RVSP 40-45 per patient report. Echocardio gram in 2014 revealed RVSP of 35. Will review 2017 report when available. Recommend Echocardio gram next year for progressio n. If Echocardio gram relatively unchanged at next office visit, she can have repeat Echocardio gram every 2-3 years or sooner if concerning symptoms arise. Essential hypertension 15634753 I10 BP today 130/84; well controlled on HCTZ 25mg daily. Continue current regimen. Low sodium diet advised. Obstructiv e sleep apnea syndrome 25777991 G47.33 Noted. Is compliant with CPAP. Continued compliance advised. [id number] KEVIN CARVALHO MD [facility] [address] [address] 08/18/2021 08:28:37 08/18/2021 09:37:42 Tear of medial meniscus of knee 362244753 S83.242A Assessment : Left knee medial meniscus [...] repeat injection if they are beneficial . [id number] SVETLANA BEAN PA-C [facility] [address] [address] 08/23/2021 14:33:54 08/23/2021 16:35:04 Pain of left knee joint 2247151630 97254 M25.562 Assessment : Probable MCL sprain and [...] in 2 weeks for recheck with me. [id number] SVETLANA BEAN PA-C [facility] [address] [place] [address] 09/06/2021 10:12:07 09/06/2021 10:43:02 Pain of left knee joint 6511594420 76315 M25.562 Assessment : Pain of left knee jointPlan: She states her Mobic has controlled the pain well so far and I believe she has made great progress lali g her range of motion gains and pain improvemen t since last visit. From my standpoint she may follow-up in roughly 3 months for recheck. [id number] SVETLANA BEAN PA-C [facility] [address] [place] [address] 07/07/2022 10:54:57 07/07/2022 12:30:28 Pain of left knee joint 3236440776 32484 M25.562 Assessment : Follow-up for repeat steroid injection into the left knee.Plan: Injection tolerated well today. Follow-up as needed. [id number] SVETLANA BEAN PA-C [facility] [address] [place] [address] 12/12/2022 13:06:36 12/12/2022 14:59:54 Arthritis of left knee joint 5211429182 735140 M13.862 Derangemen t of lateral meniscus of right knee 6691490169 74335 M23.200 Assessment : 1 Right lateral joint [...] I find reasonable . Follow-up as needed. [id number] SVETLANA BEAN PA-C [facility] [address] [place] [address] 04/26/2023 09:45:52 04/28/2023 09:12:55 Osteoarthritis of knee 433502380 M17.11 M17.12 Assessment : Repeat bilateral steroid injections into right and left knees, which both have some level of degenerati ve changes. Plan: Steroid injections tolerated well without complicati on. The patient may repeat this injection every 3 months. [id number] CAMELIA SAWANT PA-C [facility] [address] [facility] [place] [address] 06/30/2023 09:40:18 06/30/2023 11:25:15 Bilateral osteoarthritis of knees 5750938754 68379 M17.0 Mrs. Yin is a mariana 73 [...] today. I will set her up with pbx teacher and have her see Dr. Sun for formal surgical discussion along with risks/bene fits of a total knee arthroplas ty. Possible surgery: Stacia sierra medical history: pulmonary HTN , DMII A1c 5.6 (recent ~1 month)Othe r notable informatio n: sister (Vannesa Dowd) just had her knees replaced by Dr. Sun Pain of bi lateral knee joints 2335616543 10352 M25.561 M25.562 [id number] HIEU Zavlaa MD [facility] [address] [address] 07/04/2023 12:51:35 07/04/2023 14:14:52 Osteoarthritis of left knee joint 8261505417 35304 M17.12 ASSESSMENT : DJD LEFT knee PLAN:The [...] sharing responsibi lities; only one [facility] er can furnish and bill for PCM services during a calendar month, and the patient can stop these services at any time. The patient understand s and has verbally consented to accept PCM services and has been provided a copy of a written explanatio n of this service today. Surgery date: 07-19-23 [facility] location: [facility] equipment: Cemented Fermín MCPre-op clearance: PASSOther medical clearance: DVT prophylaxi s: ASA, TEDAdmissi on status: OUTPATIENT Discharge plan: overnight admissionP T: home health Allergies: PCNSkin testing: No Type 2 tanisha betes mellitus without complication 216875832 E11.9 Well-contr olled on metformin per patient [...] complicati ons. History of major abdominal surgery 033256314 Z98.890 Numerous abdominal surgeries related to perforated diverticul um. This does increase her risk for small bowel obstructio n, ileus, and other abdominal complicati ons following elective TKA. [id number] HIEU Zavala MD [facility] [address] [place] [address] 07/13/2023 15:34:26 07/18/2023 08:49:46 [id number] HIEU Zavala MD SURGERY SCHEDULE [address] [place] [address] 07/19/2023 13:20:19 07/21/2023 14:20:11 [id number] CAMELIA SAWANT PA-C [facility] [address] [place] [address] 08/09/2023 11:21:00 08/09/2023 11:56:04 History of total knee arthroplasty 9286333558 105 Z96.659 Mrs. Yin is a mariana [...] post op follow up with radiograph s. [id number] CAMELIA SAWANT PA-C [facility] [address] [place] [address] 09/27/2023 09:51:37 09/27/2023 10:41:58 History of total knee arthroplasty 6741455219 105 Z96.659 Mrs. Yin is a mariana [...] CSI Osteoarthr itis of right knee joint 9593948406 06730 M17.11 [id number] SVETLANA BEAN PA-C [facility] [address] [place] [address] 07/05/2024 13:13:07 07/05/2024 15:48:52 Osteoarthritis of right knee joint 9283626847 22370 M17.11 [id number] Assessment : Osteoarthr itis right knee Plan: Steroid injection tolerated well without complicati on. Follow-up as needed. [id number] SVETLANA BEAN PA-C [facility] [address] [place] [address] 12/03/2024 08:35:46 12/09/2024 11:42:09 Osteoarthritis of right knee joint 9719839171 99366 M17.11 [id number] Assessment : Osteoarthr itis right knee Plan: [...] Yin 12/02/2024 1 [place] Earnest Yin [id number] Earnest Yin 12/09/2024 1 [employer] (MEDICARE REPLACEMENT/ ADVANTAGE - PPO) Earnest Yin [id number] Earnest Yin Notes Date Note Type Note [...] cultures Not Obtained CAMELIA SAWANT PA-C [address] [place], [address], [facility] 08/09/2023 13:47:59 09/27/2023 text/html 09/27/23Patient is here [...] cultures Not Obtained CAMELIA SAWANT PA-C [address] [place], [address], [facility] 09/27/2023 10:45:54 07/05/2024 text/html WHAT: right knee. [...] none INJECTION: none SVETLANA BEAN PA-C [address] [place], [address], [facility] 07/05/2024 16:43:43 12/03/2024 text/html Patient comes in [...] at this time. SVETLANA BEAN PA-C [address] [place], [address], [facility] 12/04/2024 10:55:30 OBGyn Episode No OBEpisode recorded.
--- OUTSIDE RECORDS SUMMARY | 2025-01-16 11:49 | XMS_ITS | Encounter Summary ---
Author Organization [employer] ([place], [place], [place], [place]) Address [address] [place] [address] Care Team Providers Care Assembler Cards And Announcements Name Role Phone Mane Castro MD Primary Care Provider [phone] Encounter Details Date Type Department Care Team (Late st Contact Info) Description 09/15/2020 Transcribed Document [facility] [place] [address] [place] [address] ProviderRayna MD [address] [place], [place] [id number] Social History Tobacco Use Types Packs/Day Years [...] on filedocumented in this encounter Care Teams Assembler Cards And Announcements Relationship Specialty Start Date End Date Mane Castro MD [address] [place] [address] [place] [address] PCP - General Adolescent Medicine 05/04/22 documented as of this encounter
--- OUTSIDE RECORDS SUMMARY | 2025-01-16 11:49 | XMS_ITS | Encounter Summary ---
Author Organization Healthcare Address [address] [place] [address] Care Team Providers Care Cnc Machine Operator Name Role Phone Mane Castro MD Primary Care Provider [phone] Ese Barone APRN Primary Care Provider [phone] Encounter Details Date Type Department Care Team (Late Contact Info) Description 08/21/2023 Orders Only External Location [address] [place] [address] Provider, External Social History Tobacco Use Types [...] Description 06/04/2025 11:00 AM EDT Office Visit [facility] General Surgery [address] [place] [address] Garrett Galvin MD [address] [place] [address] documented as of this encounter Procedures Procedure [...] on filedocumented in this encounter Care Teams Cnc Machine Operator Relationship Specialty Start Date End Date Mane Castro MD [address] [place] [facility] [address] [address] PCP - General Internal Medicine 11/23/23 12/03/24 Ese Barone APRN [address] [place] [address] PCP - General 12/04/24 documented as of this encounter
--- OUTSIDE RECORDS SUMMARY | 2025-01-16 11:49 | XMS_ITS | Encounter Summary ---
Author Organization [employer] [facility] [employer] ([place], [place], [place], [place]) Address [address] [address] Care Team Providers Care Supervisor Records Change Name Role Phone Mane Castro MD Primary Care Provider [phone] Encounter Details Date Type Department Care Team (Late st Contact Info) Description 09/15/2020 Transcribed Document [facility] [place] [facility] [address] [place] [address] ProviderRayna MD [address], [place] [id number] Social History Tobacco Use Types Packs/Day Years [...] Polo MD - 09/15/2020 9:58 AM CDT [facility] Main OR IntraOp Summary Primary Physician: KATIUSKA POLANCO MD-SUR Finalized Date/Time: 09/19/20 15:22:41 Pt. Name: EARNEST YIN/Sex: 1950 Female Med Rec #: [id number] Physician: KATIUSKA POLANCO MD-SUR Financial #: [id number] Pt. Type: O Room/Bed: [facility]/ Admit/Disch: 09/15/20 08:13:00 - 09/17/20 11:59:00 Institution: [facility] IntraOp Case Attendance Entry 1 Entry 2 Entry 3 Case Attendee KATIUSKA POLANCO MD-ALTHEA Rosalia Malhotra, RN Kim Cox, Lithographic Retoucher Apprentice Role Performed Surgeon/Proceduralist, Professor Computer Science, First Scrub, First First Time In 09/15/20 [...] Entry 6 Case Attendee BRYANT CAMARGO Mark, REED POLISHER JERRICA ELLIOTT MD-ANS Role Performed Anesthesiologist of REED POLISHER/Nurse Umbrella Mender Anesthesiologist of Record Record Time In 09/15/20 [...] Freeman REP-KARI OTHER, ATTENDEE #2 Role Performed REED POLISHER/Nurse Umbrella Mender Access Director, Ancillary Professor Computer Science, Second Time In 09/15/20 09:32:00 09/15/20 09:32:00 [...] Case Attendee Carine Romero RN Role Performed Professor Computer Science, Second Time In 09/15/20 09:52:00 Time Out 09/15/20 11:17:00 Procedure Hernia Repair Incisional Laparoscopic Other Attendee RELIEF Superficial Wound Closed By: Last Modified By: Rosalia Malhotra RN 09/15/20 11:17:49 [facility] IntraOp Case Attendance Audit 09/15/20 11:17:49 Aerospace Manager: LAFAVEHM Modifier: LAFAVEHM 1 <+> Time Out [...] Procedure Hernia Repair Incisional Laparoscopic 09/15/20 09:53:44 Aerospace Manager: LAFAVEHM Modifier: LAFAVEHM 1 <+> Time In [...] <+> 10 Procedure <+> 10 Other Attendee [facility] IntraOp Case Times Entry 1 Patient In Room Time 09/15/20 09:32:00 Out Room Time 09/15/20 11:17:00 Anesthesia Start Time 09/15/20 09:32:00 Stop Time 09/15/20 11:17:00 Surgery / Procedure Times Start Time 09/15/20 09:58:00 Stop Time 09/15/20 11:11:00 Last Modified By: Rosalia Malhotra RN 09/15/20 11:17:46 [facility] IntraOp Case Times Audit 09/15/20 11:17:46 Aerospace Manager: LAFAVEHM Modifier: LAFAVEHM <+> 1 Out Room Time <+> 1 Stop Time 09/15/20 11:11:38 Aerospace Manager: LAFAVEHM Modifier: LAFAVEHM <+> 1 Stop Time 09/15/20 10:03:25 Aerospace Manager: LAFAVEHM Modifier: LAFAVEHM <+> 1 Start Time [facility] IntraOp Cautery Entry 1 ESU Identification Cautery Type Monopolar ESU ID Number [id number] ID Type Hospital Number Cautery Settings Cut Setting 1 Coag Setting 30 ESU Grounding Pad Ground Pad Type Adult Grounding Pad Site Upper Back Grounding Pad Rosalia Malhotra RN Applied By Grounding Pad Site Warm, dry and intact Skin Condition Before Cautery Grounding Pad Site Unchanged Skin Condition After Cautery Last Modified By: Rosalia Malhotra RN 09/15/20 09:54:27 [facility] IntraOp Communication Entry 1 Communication To Family/Significant other Comment START OF PROCEDURE Communication By Rosalia Malhotra RN Date and Time 09/15/20 09:54:00 Last Modified By: Rosalia Malhotra RN 09/15/20 09:54:54 [facility] IntraOp Counts Verification Entry 1 Procedure Hernia Repair Incisional Laparoscopic Count Info Count Type Sponge, Sharps, Instrument, Miscellaneous Counts Verification Baseline/pre-procedure Sequence Count Results Not Applicable Counts Performed By Count Performed By Kim Cox (Scrub) Lithographic Retoucher Apprentice Count Performed By Rosalia Malhotra RN (RN) Last Modified By: Rosalia Malhotra RN 09/15/20 09:55:33 [facility] IntraOp Counts Final Entry 1 Procedure Hernia Repair Incisional Laparoscopic Final Count Info Count Type Sponge, Sharps, Miscellaneous Counts Verification Skin Closure/end of Sequence procedure Count Results Correct, surgeon notified Counts Performed By Count Performed By Kim Cox (Scrub) Lithographic Retoucher Apprentice Count Performed By Rosalia Malhotra RN (RN) Last Modified By: Rosalia Malhotra RN 09/15/20 11:08:24 [facility] IntraOp Counts Final Audit 09/15/20 11:08:24 Aerospace Manager: JESUS Modifier: ALISHM 1 <*> Procedure Hernia Repair Incisional Laparoscopic 1 <+> Count Performed By (Scrub) 1 <+> Count Performed By (RN) [facility] IntraOp Delays Entry 1 Delay Reason Missing H&P or 24 hr update Duration 10 Minute(s) Last Modified By: Rosalia Malhotra RN 09/15/20 10:40:19 [facility] IntraOp Departure from OR Entry 1 Integumentary Assessment Transfer/Handoff Transfer to PACU Phase I Handoff Method Bedside/Face to face, Phone call, Online nursing summary Post-op Transport Stretcher/Gurney Via Patient Transport Travis Lucero CRNA, Accompanied by OTHER, ATTENDEE #1 Last Modified By: Rosalia Malhotra RN 09/15/20 10:39:53 [facility] IntraOp Dressing and Packing Entry 1 Type Dressing Location OPSITE Wound Dressing Item Skin Closure Glue, ABD dressing pad, Abdominal binder Applied By KATIUSKA POLANCO MD-ALTHEA Last Modified By: Rosalia Malhotra RN 09/15/20 10:39:29 [facility] IntraOp Fire Risk Assessment Entry 1 [...] Modified By: Rosalia Malhotra RN 09/15/20 09:56:13 [facility] IntraOp Fire Risk Assessment Audit 09/15/20 09:56:13 Aerospace Manager: ESCOBARYAJAIRARICH Modifier: ESCOBARYAJAIRARICH <+> 1 Fire Risk Assessment Verified Date/Time [facility] IntraOp General Case Roll Shop Supervisor 1 Case Information OR OR 08 [facility] Case Level 1 Room Verified Yes Wound Class III - Contaminated Specialty General Anesthesia Type General ASA Class 2 Diagnosis Preop Diagnosis INSISIONAL HERNIA Postop Same As Preop Yes Postop Diagnosis INSISIONAL HERNIA Last Modified By: Rosalia Malhotra RN 09/15/20 09:56:56 [facility] IntraOp Implant Log Entry 1 Entry 2 Type Implant (Synthetic) Implant (Synthetic) Implant Log Implant Type Mesh Mesh Tissue Implant Type Implant MESH VNTRLGHT CIR 20CM MESH [address] ECHO Identification [id number] Description Implant Quantity 1 1 Implant Site Implant Identification Model Number Implant Identification Serial Number Implant [id number] Identification Lot Number Implant Cr Bard:Andrés Cr Bard:Davmichael Identification Lastex Operator Name: Implant [id number] Identification Catalog Number Implant Size Implant Has an Expiration Date Implant Expiration 01/14/21 04/16/21 Date Wasted Radioactive Material Time Implanted Tissue Implant Continue for Tissue Implant Documentation Tissue Identification Number Graft Prep Per Yes Lastex Operator Instructions: Tissue Preparation Method: Reconstitution Solution: Reconstitution Solution Lot Number Reconstitution Solution Expiration Date: Thawing Solution Thawing Solution Lot Number Thawing Solution Expiration Date Preparation Materials, Other Preparation Materials, Other Lot Number Preparation Materials, Other Expiration Date Tissue Prepared/Processed By Lastex Operator N/A Paperwork Completed Implant Type Comment Last Modified By: Rosalia Malhotra RN Montgomery, Hazel, RN 09/15/20 10:39:16 09/15/20 10:56:43 [facility] IntraOp Implant Log Audit 09/15/20 10:56:43 Aerospace Manager: ESCOBARYAJAIRARICH Modifier: ESCOBARYAJAIRARICH <+> 2 Implant Identification Description <+> 2 Implant Identification Lot Number <+> 2 Implant Identification Lastex Operator Name: <+> 2 Implant Expiration Date <+> 2 Implant Quantity <+> 2 Implant Identification Catalog Number <+> 2 Implant Type <+> 2 Lastex Operator Paperwork Completed <+> 2 Type 09/15/20 10:39:16 Aerospace Manager: JESUS Modifier: JESUS 1 <*> Implant Identification Description MESH VNTRLGHT CIR 20CM [id number] <+> Implant Expiration Date [facility] IntraOp Intraoperative Assessment Entry 1 Handoff [...] Modified By: Rosalia Malhotra RN 09/15/20 09:57:21 [facility] IntraOp Intraoperative Equipment Entry 1 Entry 2 Type Equipment Equipment Equipment Equipment Ganga Suction System Other ID Number [id number] Setting Intraop Monitoring Electrocardiogram (ECG) Electrode Placement [...] Montgomery, Hazel, RN 09/15/20 09:58:32 09/15/20 09:58:32 [facility] IntraOp Medication Admin Entry 1 Medication/Irrigant Marcaine 0.5% w/ epinephrine 1:200,000 30ml vial - [id number] Route of LOCAL Administration Dose Unit of Measure ml Administered By KATIUSKA POLANCO MD-ALTHEA Procedure Irrigation Last Modified By: Rosalia Malhotra RN 09/15/20 10:03:08 [facility] IntraOp Patient Positioning Entry 1 Procedure [...] Modified By: Rosalia Malhotra RN 09/15/20 10:10:03 [facility] IntraOp Sign In Entry 1 Patient, [...] Modified By: Rosalia Malhotra RN 09/15/20 10:09:08 [facility] IntraOp Sign Out Entry 1 RN [...] Modified By: Rosalia Malhotra RN 09/15/20 11:17:42 [facility] IntraOp Sign Out Audit 09/15/20 11:17:42 Aerospace Manager: ESCOBARABE Modifier: LAFAVEHM <+> 1 RN Sign Out Signature <+> 1 RN Sign Out Signature Date/Time [facility] IntraOp Skin Prep Entry 1 Procedure Hernia Repair Incisional Laparoscopic Prescribed N/A Pre-Surgical Prep Completed Prep Area ABDOMEN Intraop Prep Integumentary WDL Assessment WDL Prep Agents Chloraprep Prep by KATIUSKA POLANCO MD-ALTHEA Hair Removal Methods Clipper/Scissors Hair Removal Site PUBIC Hair Removal By KATIUSKA POLANCO MD-SUR Last Modified By: Rosalia Malhotra RN 09/15/20 10:08:07 [facility] IntraOp Surgical Procedures Entry 1 Procedure Hernia Repair Incisional Laparoscopic Additional (LAPAROSCOPIC Procedure INCISIONAL HERNIA Description REPAIR WITH MESH) Primary Procedure Yes Primary Surgeon KATIUSKA POLANCO MD-SUR Start 09/15/20 09:58:00 Stop 09/15/20 11:11:00 Anesthesia Type General Specialty General Wound Class II - Clean-Contaminated Last Modified By: Rosalia Malhotra RN 09/15/20 11:11:44 [facility] IntraOp Surgical Procedures Audit 09/15/20 11:11:44 Aerospace Manager: LAFAVEHM Modifier: LAFAVEHM <+> 1 Stop 09/15/20 10:47:39 Aerospace Manager: LAFAVEHM Modifier: LAFAVEHM 1 <*> Procedure Hernia Repair Incisional Laparoscopic [facility] IntraOp Temp Regulation Devices Entry 1 Temp Regulation Temperature Forced Air Warming Regulation Device device, Room temperature, Warm blankets Temperature 43 C Regulation Device Serial/Unit Number Temperature Upper body Regulation Site Temperature Device SET AND MONITORED BY Setting ANESTHESIA Temperature Travis Lucero CRNA Regulation Device Applied by Last Modified By: Rosalia Malhotra RN 09/15/20 10:06:41 [facility] IntraOp Temp Regulation Devices Audit 09/15/20 10:06:41 Aerospace Manager: LAFAVEHM Modifier: LAFAVEHM <+> 1 Temperature Regulation Device Serial/Unit Number [facility] IntraOP Time Out Entry 1 Procedure [...] Modified By: Rosalia Malhotra RN 09/15/20 10:06:15 [facility] IntraOP Time Out Audit 09/15/20 10:06:15 Aerospace Manager: JESUS Modifier: JESUS 1 <+> Surgeon 1 [...] WATTSDR Correct Billing Electronically signed by [facility] Conversion Digital Art Director Cerner at 07/05/2022 8:46 AM CDT documented in this encounter Plan of Treatment Not on file documented as of this encounter Visit Diagnoses Not on filedocumented in this encounter Care Teams Supervisor Records Change Relationship Specialty Start Date End Date Mane Castro MD [address] [place] [id number] PCP - General Adolescent Medicine 05/04/22 documented as of this encounter
== END 2025-01-16 23:59 | disposition home or self-care (01) ==
LOC: RT 11:46
PROVIDERS: PCP Nurse Practitioner Family; Visit Provider Nurse Practitioner
DX: I49.1 Atrial premature depolarization (principal); I47.19 Other supraventricular tachycardia; I49.3 Ventricular premature depolarization; I47.29 Other ventricular tachycardia; I48.91 Unspecified atrial fibrillation
CPT/HCPCS: 93270